=== PATIENT | male | born 1940 | race Caucasian/White ===

== ENCOUNTER 2017-09-17 08:00 | Outpatient (RCR) | payer MEDICARE, OTHER, SELFPAY | END 2017-09-17 08:01 | disposition home or self-care (01) | LOC: OT 08:00 | PROVIDERS: Family Provider Internal Medicine Adolescent Medicine; Visit Provider Orthopaedic Surgery Hand Surgery | DX: M65.341 Trigger finger, right ring finger (principal); M65.331 Trigger finger, right middle finger | CPT/HCPCS: 97033; 97035; 97140; 97163; 97165 ==

== ENCOUNTER 2017-10-03 11:45 | Emergency (ER) | payer MEDICARE, OTHER, SELFPAY ==
--- NOTE | 2017-10-03 | CT_ITS ---
CT angio chest HISTORY: Chest pain, pain in the shoulder blades ITS.REASON: RIGHT LEG PAIN AND PAIN IN BETWEEN SHOULDER ORDERING PHYSICIAN: Hubert Tellez MD PATIENT AGE: 77 years TECHNIQUE: Axial images obtained following the administration of 75 mL of Isovue 370 . Sagittal, and coronal reformatted images are also generated and reviewed. COMPARISON: None FINDINGS: No evidence of pulmonary embolus or aortic aneurysm. There are coronary artery calcifications there is mild pericardial thickening anteriorly. There is biapical scarring. Calcified granulomas present in the right lower lobe. No lobar consolidation or collapse. No acute infiltrate or effusion. There are degenerative changes in the thoracic spine. Upper abdominal images shows slight increase density within the central mesenteric fat nonspecific. IMPRESSION: 1. No acute finding. 2. No evidence of pulmonary embolus. 3. Coronary artery calcifications consistent with coronary artery disease
[2017-10-03 12:07] VITALS: BP 124/82; PULSE 99; RESP 20; TEMP 36.4; O2SAT 97; BMI 28.5
--- NOTE | 2017-10-03 12:15 | PC.NURSE ---
Triage nurse alerted me to patient's complaint of unexplained thoracic back pain. Discussed HPI with patient and significant other. Started night before last. Associated w/ nausea. Just didn't think much of it then . Persistent yesterday. Nausea intermittently. No known injury, trauma, activity that could have caused pain. Denies SOA, CP, cough. Concerned because previous had same symptoms x2 days and due to NM. PMHx IDDM and HLP but thinks otherwise healthy. Exercises 5 days a week. Saw Dr. Patel, dispersion mixer, approx one year ago because of my age was all . Stress test and unknown type of scan negative. Discussed possible differentials and [facility] guidelines. Pt has same concerns and that is why he is here today. Pt agreeable to transfer to ER. Report given in ER to both Dr. Tellez and Nidia Conley, [employer]. Bed 5 available. Pt taken over to bed 5 at approx 1215.
[2017-10-03 12:27] VITALS: BP 147/86; PULSE 76; RESP 16; TEMP 36.6; O2SAT 98; BMI 28.5
--- NOTE | 2017-10-03 12:47 | HMH.EDGENADL ---
ED Disposition Clinical Impression: Chronic anemia, Diabetes, Thoracic myofascial strain, Coronary artery calcification Disposition: Home, Self-Care Condition on Discharge: Fair Additional Instructions: 1- take a daily asa 81 mg. 2- cardiac CT scan as outpatient and calcium score. 3- take a copy to Dr Aguiar and discuss your CT results. Referrals: Alfredo Aguiar MD [Primary Care Provider] - - Critical Care Critical Care Time: No Attestation: On 10/03/17, the high probability of a clinically significant, sudden or life threatening deterioration of the following system(s) required my full and direct attention, intervention and personal management. The time I documented below is in addition to time spent performing reported procedures but includes the following listed in this critical care notation. Medical Decision Making Vital Signs: 10/03/17 12:07 10/03/17 12:27 Temperature 97.5 F L 97.9 F Temperature Source Temporal Artery Scan Oral Pulse Rate [Right Radial] 99 H 76 Respiratory Rate 20 16 Blood Pressure [Right Arm] 124/82 147/86 Blood Pressure Mean [Right Arm] 96 106 Blood Pressure Source [Right Arm] Automatic Cuff Automatic Cuff Blood Pressure Position [Right Arm] Sitting Sitting 02 Sat by Pulse Oximetry 97 98 Oxygen Delivery Method Room Air Room Air - Lab Data Lab results reviewed: Yes: I reviewed the patient's lab results. Lab Results 10/03/17 12:45: WBC 4.0 L, RBC 4.47 L, Hgb 11.7 L, Hct 37.7 L, MCV 84.3, MCH 26.1 L, MCHC 31.0 L, RDW 15.4, Plt Count 386, MPV 7.6, Neut % (Auto) 63.4, Lymph % (Auto) 27.1, Bland % (Auto) 5.2, Eos % (Auto) 3.9, Baso % (Auto) 0.4, Neut # (Auto) 2.5, Lymph # (Auto) 1.1, Bland # (Auto) 0.2, Eos # (Auto) 0.2, Baso # (Auto) 0.0 10/03/17 12:45: D-Dimer 231 10/03/17 12:45: B-Natriuretic Peptide 53 10/03/17 13:08: Sodium 137, Potassium 4.4, Chloride 101, Carbon Dioxide 28, Anion Gap 12.4, BUN 17, Creatinine 1.31 H, Estimated Creat Clear 63, Estimated GFR 53 L, Est GFR ( Amer) 64, Glucose 314 H, Calcium 8.4 L, Total Bilirubin 0.5, AST 9 L, ALT 23, Alkaline Phosphatase 63, Total Creatine Kinase 56, CK-MB (CK-2) < 0.5, CK-MB (CK-2) Rel Index 0.9, Troponin I < 0.02, Total Protein 6.7, Albumin 3.5, Globulin 3.2, Albumin/Globulin Ratio 1.1 Result diagrams: 10/03/17 12:45 10/03/17 13:08 Orders (Tests/Meds): ED MEDICATIONS Generic Name Dose Route Start Last Admin Trade Name Freq PRN Reason Stop Dose Admin Sodium Chloride 10 ml 10/03/17 14:49 10/03/17 14:51 Rad-Saline Flush 10ml Syringe IV 11/02/17 14:48 10 ml NEEDED PRN Administration Maintain IV Site Discontinued Medications Generic Name Dose Route Start Last Admin Trade Name Freq PRN Reason Stop Dose Admin Iopamidol 75 ml 10/03/17 14:49 10/03/17 14:51 [id number]; 75ml Vial IV 10/03/17 14:50 75 ml ONCE ONE Administration Sodium Chloride 50 ml 10/03/17 14:49 10/03/17 14:51 Rad-Ns 50ml Vial IV 10/03/17 14:50 50 ml ONCE ONE Administration - CT Data CT Scan: Chest Time Received: 15:[address] Reviewed: Yes: I have viewed the radiologist's interpretation Preliminary Findings: Abnormal Findings Narrative: IMPRESSION: 1. No acute finding. 2. No evidence of pulmonary embolus. 3. Coronary artery calcifications consistent with coronary artery disease - ECG Data Tracing #1 Normal sinus rhythm baseline artifact normal P-wave QRS and T waves. ECG initial impression date: 10/03/17 ECG initial impression time: 12:52 - Kelvin Inquiry Pt receiving controlled substance: No Kelvin was queried for this patient: No Medical Decision Making Narrative: I discussed the results with the patient and his and gave him a copy of the CT report to follow-up with a primary care physician for further healthcare screening, follow-up in a coronary artery calcification, advised for a cardiac CT and calcium score. General Adult HPI - General Chief c
[2017-10-03 12:49] LABS: Basophils % 0.4 % (0.1-2.0); Eosinophils # 0.2 K/mm3 (0.0-0.4); Eosinophils % 3.9 % (0.1-12.0); Hematocrit 37.7 % (42.0-52.0); Hemoglobin 11.7 g/dL (14.1-18.0); Lymphocytes # 1.1 K/mm3 (0.7-4.5); Lymphocytes % 27.1 K/mm3 (10-50); Mean Corpuscular Hemoglobin 26.1 pg (27.0-31.2); Mean Corpuscular Volume 84.3 fl (80-94); Mean Platelet Volume 7.6 fl (7.4-10.4); Monocytes # 0.2 K/mm3 (0.1-1.0); Monocytes % 5.2 % (1.7-9.3); Neutrophils # 2.5 K/mm3 (1.8-7.8); Neutrophils % 63.4 % (37.0-80.0); Platelet Count 386 K/mm3 (142-424); Red Blood Count 4.47 M/mm3 (4.60-6.20); Red Cell Distribution Width 15.4 % (11.5-17.5)
--- NOTE | 2017-10-03 12:51 | ED_ITS ---
ED Disposition Clinical Impression: Chronic anemia, Diabetes, Thoracic myofascial strain, Coronary artery calcification Disposition: Home, Self-Care Condition on Discharge: Fair Additional Instructions: 1- take a daily asa 81 mg. 2- cardiac CT scan as outpatient and calcium score. 3- take a copy to Dr Aguiar and discuss your CT results. Referrals: Alfredo Aguiar MD [Primary Care Provider] - - Critical Care Critical Care Time: No Attestation: On 10/03/17, the high probability of a clinically significant, sudden or life threatening deterioration of the following system(s) required my full and direct attention, intervention and personal management. The time I documented below is in addition to time spent performing reported procedures but includes the following listed in this critical care notation. Medical Decision Making Vital Signs: 10/03/17 12:07 10/03/17 12:27 Temperature 97.5 F L 97.9 F Temperature Source Temporal Artery Scan Oral Pulse Rate [Right Radial] 99 H 76 Respiratory Rate 20 16 Blood Pressure [Right Arm] 124/82 147/86 Blood Pressure Mean [Right Arm] 96 106 Blood Pressure Source [Right Arm] Automatic Cuff Automatic Cuff Blood Pressure Position [Right Arm] Sitting Sitting 02 Sat by Pulse Oximetry 97 98 Oxygen Delivery Method Room Air Room Air - Lab Data Lab results reviewed: Yes: I reviewed the patient's lab results. Lab Results 10/03/17 12:45: WBC 4.0 L, RBC 4.47 L, Hgb 11.7 L, Hct 37.7 L, MCV 84.3, MCH 26.1 L, MCHC 31.0 L, RDW 15.4, Plt Count 386, MPV 7.6, Neut % (Auto) 63.4, Lymph % (Auto) 27.1, [place] % (Auto) 5.2, Eos % (Auto) 3.9, Baso % (Auto) 0.4, Neut # (Auto) 2.5, Lymph # (Auto) 1.1, [place] # (Auto) 0.2, Eos # (Auto) 0.2, Baso # (Auto) 0.0 10/03/17 12:45: D-Dimer 231 10/03/17 12:45: B-Natriuretic Peptide 53 10/03/17 13:08: Sodium 137, Potassium 4.4, Chloride 101, Carbon Dioxide 28, Anion Gap 12.4, BUN 17, Creatinine 1.31 H, Estimated Creat Clear 63, Estimated GFR 53 L, Est GFR ( Amer) 64, Glucose 314 H, Calcium 8.4 L, Total Bilirubin 0.5, AST 9 L, ALT 23, Alkaline Phosphatase 63, Total Creatine Kinase 56, CK-MB (CK-2) < 0.5, CK-MB (CK-2) Rel Index 0.9, Troponin I < 0.02, Total Protein 6.7, Albumin 3.5, Globulin 3.2, Albumin/Globulin Ratio 1.1 Result diagrams: 10/03/17 12:45 10/03/17 13:08 Orders (Tests/Meds): ED MEDICATIONS Generic Name Dose Route Start Last Admin Trade Name Freq PRN Reason Stop Dose Admin Sodium Chloride 10 ml 10/03/17 14:49 10/03/17 14:51 Rad-Saline Flush 10ml Syringe IV 11/02/17 14:48 10 ml NEEDED PRN Administration Maintain IV Site Discontinued Medications Generic Name Dose Route Start Last Admin Trade Name Freq PRN Reason Stop Dose Admin Iopamidol 75 ml 10/03/17 14:49 10/03/17 14:51 [id number]; 75ml Vial IV 10/03/17 14:50 75 ml ONCE ONE Administration Sodium Chloride 50 ml 10/03/17 14:49 10/03/17 14:51 Rad-Ns 50ml Vial IV 10/03/17 14:50 50 ml ONCE ONE Administration - CT Data CT Scan: Chest Time Received: 15:[address] Reviewed: Yes: I have viewed the radiologist's interpretation Preliminary Findings: Abnormal Findings Narrative: IMPRESSION: 1. No acute finding. 2. No evidence of pulmonary embolus. 3. Coronary artery calcifications consistent with cor
[2017-10-03 13:18] LABS: D-Dimer 231 (0-400)
[2017-10-03 13:43] LABS: Alanine Aminotransferase 23 U/L (12-78); Albumin Level 3.5 gm/dL (3.4-5.0); Albumin/Globulin Ratio 1.1 (1.1-1.8); Alkaline Phosphatase 63 U/L (46-116); Anion Gap 12.4 mEq/L (5-15); Aspartate Amino Transferase 9 U/L (15-37); Bilirubin,Total 0.5 mg/dL (0.2-1.0); Blood Urea Nitrogen 17 mg/dL (7-18); Calcium 8.4 mg/dL (8.5-10.1); Carbon Dioxide 28 mmol/L (21.0-32.0); Chloride 101 mmol/L (98-107); Creatine Kinase 56 U/L (39-308); Creatinine Clearance Estimated 63 mL/min (0-300); Creatinine,Serum 1.31 mg/dL (0.70-1.30); Estimated Glomerular Filt Rate 53 ml/min (>60); GFR (African American) 64 ML/MIN (>60); Globulin 3.2 gm/dl (1.3-3.2); Glucose 314 mg/dL (74-106); Potassium 4.4 mmoL/L (3.5-5.1); Sodium 137 mmol/L (136-145); Total Protein,Serum 6.7 gm/dL (6.4-8.2); Troponin I < 0.02 ng/ml (0.00-0.06)
[2017-10-03 13:46] LABS: CKMB Relative Index 0.9 U/L (0-4.0); Creatine Kinase MB < 0.5 mg/ml (0.0-3.6)
[2017-10-03 15:12] VITALS: BP 138/70; PULSE 76; RESP 20; TEMP 36.1; O2SAT 100
== END 2017-10-03 15:16 | disposition home or self-care (01) ==
LOC: UTC 12:11 → ER 12:14 → UTC 12:14 → ER 12:23
PROVIDERS: Emergency Provider Emergency Medicine; Family Provider Internal Medicine Adolescent Medicine; PCP Internal Medicine Adolescent Medicine
DX: S29.019A Strain of muscle and tendon of unspecified wall of thorax, initial encounter (principal); Z79.84 Long term (current) use of oral hypoglycemic drugs; I25.10 Atherosclerotic heart disease of native coronary artery without angina pectoris; I10 Essential (primary) hypertension; D64.9 Anemia, unspecified; Z79.82 Long term (current) use of aspirin; Z79.899 Other long term (current) drug therapy; R06.02 Shortness of breath; E11.9 Type 2 diabetes mellitus without complications
CPT/HCPCS: 36415; 71275; 80053; 82550; 82553; 83880; 84484; 85025; 85378; 93005; 99284; 99291; Q9967

== ENCOUNTER → 2017-10-10 07:38 | Outpatient (CLI) | payer MEDICARE, OTHER, SELFPAY ==
[2017-10-10 08:07] LABS: Basophils % 0.7 % (0.1-2.0); Eosinophils # 0.2 K/mm3 (0.0-0.4); Eosinophils % 4.6 % (0.1-12.0); Hematocrit 38.2 % (42.0-52.0); Hemoglobin 11.9 g/dL (14.1-18.0); Lymphocytes # 0.9 K/mm3 (0.7-4.5); Lymphocytes % 21.8 K/mm3 (10-50); Mean Corpuscular HGB Conc 31.1 g/dL (31.8-35.4); Mean Corpuscular Volume 83.6 fl (80-94); Mean Platelet Volume 7.4 fl (7.4-10.4); Monocytes # 0.3 K/mm3 (0.1-1.0); Monocytes % 6.2 % (1.7-9.3); Neutrophils # 2.7 K/mm3 (1.8-7.8); Neutrophils % 66.7 % (37.0-80.0); Platelet Count 390 K/mm3 (142-424); Red Blood Count 4.57 M/mm3 (4.60-6.20); Red Cell Distribution Width 15.4 % (11.5-17.5); White Blood Count 4.1 K/mm3 (4.8-10.8)
[2017-10-10 09:17] LABS: Alanine Aminotransferase 26 U/L (12-78); Albumin/Globulin Ratio 1.3 (1.1-1.8); Alkaline Phosphatase 65 U/L (46-116); Anion Gap 11.6 mEq/L (5-15); Aspartate Amino Transferase 10 U/L (15-37); Bilirubin,Total 0.4 mg/dL (0.2-1.0); Blood Urea Nitrogen 18 mg/dL (7-18); Calcium 8.9 mg/dL (8.5-10.1); Carbon Dioxide 29 mmol/L (21.0-32.0); Chloride 103 mmol/L (98-107); Chol/HDL Ratio 3.8 (1-3.5); Cholesterol 156 mg/dL (140-200); Estimated Glomerular Filt Rate 53 ml/min (>60); GFR (African American) 64 ML/MIN (>60); Globulin 3.1 gm/dl (1.3-3.2); Glucose 189 mg/dL (74-106); HDL Cholesterol 41 mg/dL (27-67); LDL Cholesterol 96 mg/dL (0-130); Potassium 4.6 mmoL/L (3.5-5.1); Sodium 139 mmol/L (136-145); Total Protein,Serum 7.1 gm/dL (6.4-8.2); Triglycerides 96 mg/dL (30-200); VLDL Cholesterol 19 mg/dL (0-40)
== END ==
PROVIDERS: Visit Provider Internal Medicine Adolescent Medicine
DX: I25.10 Atherosclerotic heart disease of native coronary artery without angina pectoris (principal)
CPT/HCPCS: 36415; 80053; 80061; 85025

== ENCOUNTER → 2017-10-14 06:21 | Outpatient (CLI) | payer MEDICARE, OTHER, SELFPAY ==
--- NOTE | 2017-10-14 06:26 | NM_ITS ---
History and Indications: Diabetes, family history, shortness of breath and fatigue. Procedure: Patient exercised on Anderson protocol 7 and 30 seconds, resting heart rate was 64 beats per resting blood pressure 151/84, with exercise maximum heart rate achieved was 1 47 bpm which is equal to 104% of the maximum predicted heart rate and a blood pressure was 186/70. Test was started due to shortness of breath, also complained depression in the left upper back. Patient has good exercise capacity achieved 10.1mets of workload on treadmill, the blood pressure response to exercise was adequate. Electrocardiogram: Resting electrocardiogram showed sinus rhythm, with exercise there is [address] segment depression noted from the baseline EKG. The EKG portion of the exercise Myoview is markedly positive for ischemia. Cardiac stress and resting SPECT images: Cardiac stress and resting SPECT images were obtained using technetium 99 Myoview 10.5 mCi at rest and 31.6 mCi at stress, gated SPECT further analysis of segmental wall motion and calculation of the ejection fraction also done. Cardiac stress and rest SPECT images show uniform myocardial activity without any segmental perfusion abnormality, computer derived ejection fraction is over 65% with no obvious regional wall motion abnormality, right ventricle is moderately enlarged with normal contractility. Conclusion: 1. The EKG portion of the exercise Myoview is markedly positive for ischemia, patient has good exercise capacity achieved 10.1mets of workload on treadmill, the blood pressure response to exercise was adequate, there was no exercise-induced chest discomfort, test was started due to shortness of breath, patient also complained of pressure in left upper back. 2. No obvious scintigraphic evidence of reversible ischemia seen at this level of exercise, computer derived ejection fraction is over 65% with no obvious regional wall motion abnormality, right ventricle is moderately enlarged with normal contractility.
--- NOTE | 2017-10-14 07:13 | HMH.ITSHM ---
GLIPIZIDE METFORMIN LANTUS PRAVASTATIN LISINOPRIL ASA MULTIVITAMIN VITAMIN C TRINTELLIX VITAMIN D3
== END ==
PROVIDERS: Family Provider Internal Medicine Adolescent Medicine; PCP Internal Medicine Adolescent Medicine; Visit Provider Internal Medicine Adolescent Medicine
DX: I25.10 Atherosclerotic heart disease of native coronary artery without angina pectoris (principal)
CPT/HCPCS: 78452; 93017; A9502

== ENCOUNTER 2017-10-28 07:26 | Day surgery (SDC) | payer MEDICARE, OTHER, SELFPAY ==
[2017-10-28] VITALS (15 sets, daily range): BP systolic 99–167; BP diastolic 51–83; PULSE 65–79; RESP 16–18; TEMP 36.6; O2SAT 94–100; BMI 28.8
--- NOTE | 2017-10-28 | CA_ITS ---
PROCEDURE: 2-D M-mode and color Doppler study INDICATIONS FOR THE TEST: Chest pain COPD Heart Murmur Tobacco Smoking Palpitations+ Fatigue+ Syncope Edema Hypertension+Diabetes Mellitus+ Rheumatic Fever SOB+CAMPBELL Obesity Hyperlipidemia+ Family History HD Additional History PATIENT INFORMATION HEIGHT: 73 WEIGHT: 222 GENDER: Male B/P: 135/82 2-D/M-MODE INTERPRETATION: 2-D MEASUREMENTS OBSERVED VALUES IN CMS Right Ventricular Dimension (RVDd) 2.4 Interventricular Septum (Thickness)(IVsd) 1.0 Left Ventricular Internal Dimensions(LVIDd) 4.8 Left Ventricular Posterior Wall (Thickness)(LVPWd) 0.9 Aortic Root 2.8 Aortic Cusp Separation 2.0 Left Atrial Dimensions (LAD) 3.4 2D 1. Left atrium is qualitatively mildly enlarged, left ventricle is normal size, there is mild qualitative concentric left ventricular hypertrophy, visually estimated ejection fraction 55% with no obvious regional wall motion abnormality. 2. The right atrium and right ventricle are normal size and contractility. 3. The aortic valve is minimally thickened and fibrosed. 4. The mitral and tricuspid valve leaflets are minimally thickened. 5. The pulmonic valve is poorly visualized. 6. No significant pericardial effusion noted. DOPPLER INTERROGATION: Doppler interrogation of the aortic, mitral and tricuspid valvular presence of mild mitral and tricuspid regurgitation, calculated right ventricular systolic pressure is 34 mmHg, grade 1 diastolic dysfunction seen without tissue Doppler evidence of raised left atrial pressure. CONCLUSION: 1. Mildly enlarged left atrium, normal left ventricular size, mild concentric left ventricular hypertrophy, visually estimated ejection fraction 55% with no obvious regional wall motion abnormality, grade 1 diastolic dysfunction seen without tissue Doppler evidence of raised left atrial pressure. 2. Mild mitral and tricuspid regurgitation, calculated right ventricular systolic pressure is 34 mmHg 3. No significant pericardial effusion noted.
--- NOTE | 2017-10-28 | IR_ITS ---
CARDIAC CATHETERIZATION DATE OF CATHETERIZATION:10/28/2017 10:54 AM PROCEDURES: 1. Left heart catheterization 2. Left ventriculogram 3. Selective coronary angiogram INDICATION FOR TEST: 1. Abnormal stress test 2. Risk factors for coronary artery disease 3. Angina pectoris Informed consent was obtained prior to the procedure. COMPLICATIONS: None ESTIMATED BLOOD LOSS: Less than 10 ml. TECHNIQUE: One percent lidocaine used to anesthetize the right anterior aspect of the wrist. The right radial artery was accessed via the Seldinger technique. A 6 Japanese sheath was placed in the right radial artery. 2.5 mg of verapamil, 800 mcg of nitroglycerin and 5000 U Heparin were given through the arterial sheath. The trap catheter was also used to perform left heart catheterization and left ventriculography. At the end of the procedure the patient was transferred to the post-op holding area in stable condition for arterial sheath removal. ANGIOGRAPHIC RESULTS: 1. The left main artery normal 2. The left anterior descending artery has mild proximal 10% stenoses 3. The circumflex artery normal 4. The right coronary artery is dominant and has 10-20% mid vessel and distal stenoses 5. The [place] ventriculogram reveals normal 65% 6. The left ventricular end-diastolic pressure 10 to 15 mmHg IMPRESSION: 1. Mild nonflow limiting coronary artery disease 2. Normal ejection fraction 3. Normal left ventricular end-diastolic pressure PLAN: 1. Evaluation noncardiac symptoms 2. Risk factor modification
[2017-10-28 08:25] LABS: Basophils % 0.6 % (0.1-2.0); Eosinophils # 0.2 K/mm3 (0.0-0.4); Eosinophils % 4.2 % (0.1-12.0); Hematocrit 37.5 % (42.0-52.0); Hemoglobin 11.9 g/dL (14.1-18.0); Lymphocytes % 22.2 K/mm3 (10-50); Mean Corpuscular HGB Conc 31.8 g/dL (31.8-35.4); Mean Corpuscular Hemoglobin 26.2 pg (27.0-31.2); Mean Corpuscular Volume 82.5 fl (80-94); Mean Platelet Volume 7.1 fl (7.4-10.4); Monocytes # 0.3 K/mm3 (0.1-1.0); Monocytes % 6.2 % (1.7-9.3); Neutrophils # 3.1 K/mm3 (1.8-7.8); Neutrophils % 66.9 % (37.0-80.0); Platelet Count 384 K/mm3 (142-424); Red Blood Count 4.55 M/mm3 (4.60-6.20); Red Cell Distribution Width 14.9 % (11.5-17.5); White Blood Count 4.7 K/mm3 (4.8-10.8)
[2017-10-28 08:32] LABS: Anion Gap 9.2 mEq/L (5-15); Blood Urea Nitrogen 21 mg/dL (7-18); Carbon Dioxide 31 mmol/L (21.0-32.0); Chloride 100 mmol/L (98-107); Creatinine Clearance Estimated 66 mL/min (0-300); Creatinine,Serum 1.26 mg/dL (0.70-1.30); Estimated Glomerular Filt Rate 55 ml/min (>60); GFR (African American) 67 ML/MIN (>60); Glucose 216 mg/dL (74-106); Potassium 4.2 mmoL/L (3.5-5.1); Sodium 136 mmol/L (136-145)
== END 2017-10-28 14:26 | disposition home or self-care (01) ==
PROVIDERS: Family Provider Internal Medicine Adolescent Medicine; PCP Internal Medicine Adolescent Medicine; Visit Provider Internal Medicine
DX: R94.31 Abnormal electrocardiogram [ECG] [EKG] (principal); R06.02 Shortness of breath; R06.09 Other forms of dyspnea; E11.9 Type 2 diabetes mellitus without complications; Z79.4 Long term (current) use of insulin; I10 Essential (primary) hypertension; E78.2 Mixed hyperlipidemia; I25.10 Atherosclerotic heart disease of native coronary artery without angina pectoris
CPT/HCPCS: 80048; 85025; 93306; 93458; 99152; C1725; C1760; C1769; J1644; Q9967

== ENCOUNTER → 2017-12-01 09:34 | Outpatient (CLI) | payer MEDICARE, OTHER, SELFPAY ==
[2017-12-01 10:35] VITALS: PULSE 80; PULSE 86
== END ==
PROVIDERS: Family Provider Internal Medicine Adolescent Medicine; PCP Internal Medicine Adolescent Medicine; Visit Provider Internal Medicine Adolescent Medicine
DX: R06.09 Other forms of dyspnea (principal)
CPT/HCPCS: 94060; 94640; 94726; 94729

== ENCOUNTER → 2018-02-05 07:12 | Outpatient (CLI) | payer MEDICARE, OTHER, SELFPAY ==
[2018-02-05 10:25] LABS: Alanine Aminotransferase 24 U/L (12-78); Albumin Level 3.9 gm/dL (3.4-5.0); Albumin/Globulin Ratio 1.2 (1.1-1.8); Alkaline Phosphatase 69 U/L (46-116); Anion Gap 13.9 mEq/L (5-15); Aspartate Amino Transferase 14 U/L (15-37); Bilirubin,Total 0.3 mg/dL (0.2-1.0); Blood Urea Nitrogen 27 mg/dL (7-18); Carbon Dioxide 27 mmol/L (21.0-32.0); Chloride 104 mmol/L (98-107); Chol/HDL Ratio 3.8 (1-3.5); Cholesterol 150 mg/dL (140-200); Estimated Glomerular Filt Rate 53 ml/min (>60); GFR (African American) 64 ML/MIN (>60); Globulin 3.2 gm/dl (1.3-3.2); Glucose 179 mg/dL (74-106); HDL Cholesterol 40 mg/dL (27-67); LDL Cholesterol 94 mg/dL (0-130); Potassium 4.9 mmoL/L (3.5-5.1); Sodium 140 mmol/L (136-145); Total Protein,Serum 7.1 gm/dL (6.4-8.2); Triglycerides 79 mg/dL (30-200); VLDL Cholesterol 16 mg/dL (0-40)
== END ==
PROVIDERS: Visit Provider Internal Medicine Adolescent Medicine
DX: E11.9 Type 2 diabetes mellitus without complications (principal); I25.10 Atherosclerotic heart disease of native coronary artery without angina pectoris
CPT/HCPCS: 36415; 80053; 80061; 83036

== ENCOUNTER → 2018-04-19 14:16 | Outpatient (CLI) | payer MEDICARE, OTHER, SELFPAY ==
--- NOTE | 2018-04-19 | NVE_ITS ---
Venous Exam Indications: 729.5 Pain in limb. IMPRESSIONS 1. There is no evidence of significant Reflux. 2. No evidence of deep or superficial vein thrombosis involving the left lower extremity History: Left lower extremity pain. Edema of the left leg. Risk factors: Hypertension. Hyperlipidemia. Diabetes. 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 Medications: Aspirin, 81 mg. Left lower extremity venous duplex evaluation. Doppler flow study including spectral analysis, color and liao scale imaging. Location: Vascular laboratory. Patient status: Outpatient. Tables: Venous flow and imaging: + +-------+ + Location Overall Flow properties + +-------+ + Left common femoral Patent Normal phasicity; spontaneous; normal augmentation; compressible + +-------+ + Left saphenofemoral junction Patent Compressible + +-------+ + Left profunda femoral Patent Compressible + +-------+ + Left femoral Patent Normal phasicity; spontaneous; normal augmentation; compressible + +-------+ + Left greater saphenous Patent Normal phasicity; spontaneous; normal augmentation; compressible + +-------+ + Left popliteal Patent Normal phasicity; spontaneous; normal augmentation; compressible + +-------+ + Left posterior tibial Patent Compressible + +-------+ + Left peroneal Patent Compressible + +-------+ + Left gastrocnemius Patent Compressible + +-------+ + Left soleal Patent Compressible + +-------+ + (Report amended ) Electronically signed by: Brijesh Kilgore [id number]
== END ==
PROVIDERS: PCP Internal Medicine Adolescent Medicine; Visit Provider Physician Assistant
DX: R60.0 Localized edema (principal)
CPT/HCPCS: 93971

== ENCOUNTER → 2018-05-04 07:00 | Outpatient (CLI) | payer MEDICARE, OTHER, SELFPAY ==
[2018-05-04 07:48] LABS: Basophils % 0.4 % (0.1-2.0); Eosinophils # 0.2 K/mm3 (0.0-0.4); Eosinophils % 4.1 % (0.1-12.0); Hematocrit 38.3 % (42.0-52.0); Hemoglobin 11.7 g/dL (14.1-18.0); Lymphocytes # 0.9 K/mm3 (0.7-4.5); Lymphocytes % 16.7 K/mm3 (10-50); Mean Corpuscular HGB Conc 30.5 g/dL (31.8-35.4); Mean Corpuscular Hemoglobin 25.5 pg (27.0-31.2); Mean Corpuscular Volume 83.4 fl (80-94); Mean Platelet Volume 7.1 fl (7.4-10.4); Monocytes # 0.3 K/mm3 (0.1-1.0); Monocytes % 5.7 % (1.7-9.3); Neutrophils % 73.1 % (37.0-80.0); Platelet Count 683 K/mm3 (142-424); Red Blood Count 4.59 M/mm3 (4.60-6.20); Red Cell Distribution Width 17.7 % (11.5-17.5); White Blood Count 5.5 K/mm3 (4.8-10.8)
[2018-05-04 08:34] LABS: Hemoglobin A1C 7.7 % (0.0-7.0)
[2018-05-04 09:19] LABS: Alanine Aminotransferase 25 U/L (12-78); Albumin Level 3.9 gm/dL (3.4-5.0); Albumin/Globulin Ratio 1.2 (1.1-1.8); Alkaline Phosphatase 90 U/L (46-116); Anion Gap 13.7 mEq/L (5-15); Aspartate Amino Transferase 17 U/L (15-37); Bilirubin,Total 0.6 mg/dL (0.2-1.0); Blood Urea Nitrogen 21 mg/dL (7-18); Carbon Dioxide 29 mmol/L (21.0-32.0); Chloride 103 mmol/L (98-107); Creatinine,Serum 1.22 mg/dL (0.70-1.30); Estimated Glomerular Filt Rate 57 ml/min (>60); GFR (African American) 69 ML/MIN (>60); Globulin 3.2 gm/dl (1.3-3.2); Glucose 118 mg/dL (74-106); Potassium 4.7 mmoL/L (3.5-5.1); Sodium 141 mmol/L (136-145); Total Protein,Serum 7.1 gm/dL (6.4-8.2)
[2018-05-07 17:27] LABS: Testosterone, Total, LC/MS 433.2 ng/dL (264.0-916.0); Testosterone,Free 4.3 pg/mL (6.6-18.1)
== END ==
PROVIDERS: PCP Internal Medicine Adolescent Medicine; Visit Provider Internal Medicine Adolescent Medicine
DX: R53.83 Other fatigue (principal); R53.81 Other malaise; E11.9 Type 2 diabetes mellitus without complications
CPT/HCPCS: 36415; 80053; 82533; 83036; 84402; 84403; 85025

== ENCOUNTER → 2018-06-07 13:41 | Outpatient (CLI) | payer MEDICARE, OTHER, SELFPAY ==
[2018-06-07 15:08] LABS: Hematocrit 38.5 % (42.0-52.0); Hemoglobin 11.7 g/dL (14.1-18.0)
== END ==
PROVIDERS: Visit Provider Surgery
DX: D64.9 Anemia, unspecified (principal)
CPT/HCPCS: 36415; 85014; 85018

== ENCOUNTER → 2018-07-20 08:32 | Outpatient (CLI) | payer MEDICARE, OTHER, SELFPAY ==
--- NOTE | 2018-07-20 08:34 | FL_ITS ---
MN upper GI small bowel Ordering Physician: Yonathan Araujo MD Patient Age: 77 years: Male HISTORY: ITS.REASON: anemia TECHNIQUE: Double contrast UGI with subsequent small bowel follow-through performed by Dr. Hernandez. Fluoroscopy time 4 minutes 02 seconds. HISTORY of prostate cancer 10 years ago. Also appendectomy and gallbladder surgery. COMPARISON :None FINDINGS. UGI Cervical esophagus Patient did demonstrate penetration into the laryngeal vestibule including mild aspiration. Minimal barium is seen at or below the level of the cords. Minimal intermittent penetration which may be accentuated swallowing with with head in extension. Nonetheless this should keep in mind and consider a follow-up speech pathology evaluation particularly if any dysphagia symptoms. There are some anterior marginal osteophytes at C5/6 with these do not impact the C-spine cricopharyngeus muscle. Thoracic esophagus. There is a small sliding hiatal hernia. Minor GE reflux noted during the course of exam. Otherwise the Stomach, Pylorus and Duodenal Bulb appear satisfactory. There is some initial slight delay in gastric emptying but once began the duodenal bulb appear distensible and satisfactory as does the pylorus, antrum and duodenal loop.. No evidence of ulceration or scarring SMALL BOWEL follow through------] Small bowel is normal in caliber. Normal transit. Normal mucosal pattern of jejunum and ileum. The terminal ileum was slightly difficult to isolate but appears within normal limits. Spot views of the remainder small bowel were performed during the exam to additionally survey as well.. IMPRESSION: 1.. Small sliding hiatal hernia noted. Trace GE reflux 2. Incidental Note episode of penetration & with evidence of minimal aspiration . This may be incidental transient episode, but Consider speech pathology follow-up, particularly if there should be any symptoms of dysphagia 3. Stomach pylorus and the nipple overall satisfactory. 4.. Small bowel. Normal caliber normal appearance. No abnormalities evident nor identified.
== END ==
PROVIDERS: PCP Internal Medicine Adolescent Medicine; Visit Provider Surgery
DX: D64.9 Anemia, unspecified (principal)
CPT/HCPCS: 74245

== ENCOUNTER → 2018-07-21 11:28 | Outpatient (CLI) | payer MEDICARE, OTHER, SELFPAY ==
[2018-07-21 12:19] LABS: Basophils % 0.4 % (0.1-2.0); Eosinophils # 0.2 K/mm3 (0.0-0.4); Eosinophils % 3.7 % (0.1-12.0); Hematocrit 38.6 % (42.0-52.0); Lymphocytes % 20.8 % (10-50); Mean Corpuscular Hemoglobin 25.9 pg (27.0-31.2); Mean Corpuscular Volume 83.5 fl (80-94); Monocytes # 0.2 K/mm3 (0.1-1.0); Monocytes % 4.7 % (1.7-9.3); Neutrophils # 3.4 K/mm3 (1.8-7.8); Neutrophils % 70.5 % (37.0-80.0); Platelet Count 414 K/mm3 (142-424); Red Blood Count 4.62 M/mm3 (4.60-6.20); White Blood Count 4.8 K/mm3 (4.8-10.8)
[2018-07-23 16:13] LABS: Vitamin B12 312 pg/mL (232-1245); Vitamin D 25 Hydroxy 48.9 ng/mL (30.0-100.0)
[2018-07-24 13:59] LABS: Antiparietal Cell Antibody 19.4 Units (0.0-20.0)
[2018-07-29 15:23] LABS: Methylmalonic Acid 224 nmol/L (0-378)
== END ==
PROVIDERS: Visit Provider Internal Medicine Adolescent Medicine
DX: D64.9 Anemia, unspecified (principal)
CPT/HCPCS: 36415; 82131; 82607; 82652; 83516; 85025

== ENCOUNTER → 2018-08-04 12:08 | Outpatient (CLI) | payer MEDICARE, OTHER, SELFPAY ==
--- NOTE | 2018-08-04 12:49 | FL_ITS ---
FL barium swallow modified: 08/04/2018 12:49 PM CLINICAL HISTORY: Dysphasia ORDERING PHYSICIAN: Yonathan Araujo MD PATIENT AGE: 77 years Comparison: None TECHNIQUE: Patient administered varying consistencies of barium contrast, while viewed in lateral position under real-time fluoroscopy with cine recording. FLUOROSCOPY TIME: 1 minute 54 seconds The study was performed in conjunction with speech pathologist. Please see that report & recommendations. FINDINGS: Patient was given varying consistencies of barium. There was flash penetration with thin liquids with a straw with large volume. No other significant anomalies are evident. IMPRESSION: Flash penetration with thin liquids otherwise negative modified barium swallow Please see speech pathologist report and recommendations.
--- NOTE | 2018-08-04 14:28 | HMH.SLMBS2 ---
Speech & Language Evaluation Speech/Language Mod Barium Swallow Start: 08/04/18 14:01 Freq: once Status: Complete Protocol: Document 08/04/18 14:01 SUE (Rec: 08/04/18 14:27 SUE [id number]) MBS Recommendations Diet Dietary Recommendations Regular Thin Liquids Treatment/Strategies Strategy/Precaution Recommend Sitting Upright (90 deg) Chin Tuck No Straw Small Bites and Sips Mod Barium Swallow Impressions Summary and Impressions Oral Phase Impression No Impairment (WFL) Oral Phase Summary Mr. Vázquez was given the following consistencies: thins via straw and open cup, pudding, mechanical soft, regular, mixed, and pill with thin wash. No oral phase dysphagia noted. Pharyngeal Phase Impression Minimal Impairment Pharyngeal Phase Summary Mr. Vázquez did exhibit flash penetration with thin liquids with a straw and when given large volume of thins to swallow pill. At this time, speech therapy and diet modifications are not needed. Compensatory strategies were implimented: chin tuck with pills, reduce the amount of medications taken at once, straws are not recommended at this time. Speech/Language MBS Assessment/Goals/Plan Assessment Date of Evaluation: 08/04/18 Evaluation Type Initial Certification Assessment/Problems Dysphagia Does Patient Qualify for Service No Qualify/Failure Comment Mr. Vázquez was educated on the compensatory strategies and will impliment at home. He will contact speech therapist if he continues to have difficulty. Recommendations PHYSICIAN CERTIFICATION: The specified therapy services are required, authorized, and reviewed every 30 days. Diet Recommendations Normal Liquid Type Recommendations Normal/Thin Dysphagia Swallow Precautions/Strategies Chin Tuck No Straw Small Bites and Sips Plan Pt/Guardian verbally ack understanding Yes of dx/prognosis/goals G -code Required Yes G-CODES ST Current Status [id number]
[2018-08-04 14:47] LABS: Ferritin 23 ng/mL (8-388)
== END ==
PROVIDERS: Internal Medicine Adolescent Medicine; Visit Provider Surgery
DX: T17.908A Unspecified foreign body in respiratory tract, part unspecified causing other injury, initial encounter (principal); D64.9 Anemia, unspecified
CPT/HCPCS: 36415; 70371; 82728; 92611

== ENCOUNTER 2018-08-12 09:00 | Outpatient (RCR) | payer MEDICARE, OTHER, SELFPAY | END 2018-08-12 09:05 | disposition home or self-care (01) | LOC: PT 09:00 | PROVIDERS: Family Provider Internal Medicine Adolescent Medicine; PCP Internal Medicine Adolescent Medicine; Visit Provider Orthopaedic Surgery | DX: Z96.652 Presence of left artificial knee joint (principal) | CPT/HCPCS: 97010; 97014; 97016; 97110; 97140; 97163; 97164; G0283 ==

== ENCOUNTER → 2018-08-17 15:17 | Outpatient (CLI) | payer MEDICARE, OTHER, SELFPAY ==
[2018-08-17 15:40] LABS: Hematocrit 36.5 % (42.0-52.0); Hemoglobin 11.3 g/dL (14.1-18.0)
== END ==
PROVIDERS: Visit Provider Surgery
DX: D64.9 Anemia, unspecified (principal)
CPT/HCPCS: 36415; 85014; 85018

== ENCOUNTER → 2018-09-21 09:37 | Outpatient (CLI) | payer MEDICARE, OTHER, SELFPAY ==
[2018-09-21 09:58] LABS: Hematocrit 38.2 % (42.0-52.0); Hemoglobin 11.7 g/dL (14.1-18.0)
== END ==
PROVIDERS: Visit Provider Surgery
DX: D64.9 Anemia, unspecified (principal)
CPT/HCPCS: 36415; 85014; 85018

== ENCOUNTER → 2018-09-23 10:20 | Outpatient (CLI) | payer MEDICARE, OTHER, SELFPAY ==
[2018-09-23 11:25] LABS: Basophils % 0.4 % (0.1-2.0); Eosinophils # 0.2 K/mm3 (0.0-0.4); Eosinophils % 4.8 % (0.1-12.0); Hematocrit 38.9 % (42.0-52.0); Hemoglobin 11.7 g/dL (14.1-18.0); Lymphocytes # 0.6 K/mm3 (0.7-4.5); Mean Corpuscular HGB Conc 30.2 g/dL (31.8-35.4); Mean Corpuscular Hemoglobin 25.6 pg (27.0-31.2); Mean Corpuscular Volume 84.6 fl (80-94); Mean Platelet Volume 7.5 fl (7.4-10.4); Monocytes # 0.3 K/mm3 (0.1-1.0); Monocytes % 5.3 % (1.7-9.3); Neutrophils # 3.6 K/mm3 (1.8-7.8); Neutrophils % 76.6 % (37.0-80.0); Platelet Count 342 K/mm3 (142-424); Red Blood Count 4.59 M/mm3 (4.60-6.20); Red Cell Distribution Width 15.9 % (11.5-17.5); Reticulocyte % (Auto) 2.3 % (0.9-3.2); White Blood Count 4.7 K/mm3 (4.8-10.8)
[2018-09-23 13:27] LABS: Alanine Aminotransferase 24 U/L (12-78); Albumin Level 3.6 gm/dL (3.4-5.0); Albumin/Globulin Ratio 1.2 (1.1-1.8); Alkaline Phosphatase 75 U/L (46-116); Anion Gap 15.7 mEq/L (5-15); Aspartate Amino Transferase 8 U/L (15-37); Bilirubin,Total 0.4 mg/dL (0.2-1.0); Blood Urea Nitrogen 20 mg/dL (7-18); Carbon Dioxide 25 mmol/L (21.0-32.0); Chloride 101 mmol/L (98-107); Creatinine,Serum 1.49 mg/dL (0.70-1.30); Estimated Glomerular Filt Rate 45 ml/min (>60); Ferritin 21 ng/mL (8-388); GFR (African American) 55 ML/MIN (>60); Globulin 3.1 gm/dl (1.3-3.2); Glucose 322 mg/dL (74-106); Potassium 4.7 mmoL/L (3.5-5.1); Sodium 137 mmol/L (136-145); Thyroid Stimulating Hormone 1.07 uIU/ml (0.358-3.740); Total Protein,Serum 6.7 gm/dL (6.4-8.2)
[2018-09-24 08:25] LABS: Iron 33 ug/dL (38-169); Iron Saturation 9 % (15-55); UIBC 317 ug/dL (111-343)
[2018-09-24 10:56] LABS: Haptoglobin 219 mg/dL (34-200)
[2018-09-24 15:24] LABS: Albumin 3.9 g/dL (2.9-4.4); Alpha-1-Globulin 0.2 g/dL (0.0-0.4); Alpha-2-Globulin 0.8 g/dL (0.4-1.0); Gamma Globulin 0.8 g/dL (0.4-1.8); Protein, Total 6.7 g/dL (6.0-8.5)
[2018-09-24 16:36] LABS: Free Kappa Lt Chains 33.4 mg/L (3.3-19.4); Free Lambda Lt Chains 22.6 mg/L (5.7-26.3)
== END ==
PROVIDERS: Visit Provider Internal Medicine Medical Oncology
DX: R79.0 Abnormal level of blood mineral (principal); Z79.899 Other long term (current) drug therapy
CPT/HCPCS: 36415; 80053; 82728; 83010; 83540; 83550; 83883; 84155; 84165; 84443; 85025; 85044

== ENCOUNTER 2018-10-05 09:25 | Outpatient (CLI) | payer MEDICARE, OTHER, SELFPAY ==
[2018-10-05 10:03] VITALS: BMI 26.7
[2018-10-05 10:28] LABS: Phosphorous 4.1 mg/dL (2.4-4.9)
[2018-10-05 10:50] VITALS: BP 110/66; PULSE 72; RESP 18
[2018-10-05 11:15] VITALS: BP 133/69; PULSE 62; RESP 18
[2018-10-05 11:30] VITALS: BP 133/72; PULSE 72; RESP 18
== END 2018-10-05 11:30 | disposition home or self-care (01) ==
LOC: INF 09:34
PROVIDERS: Visit Provider Internal Medicine Medical Oncology
DX: D50.9 Iron deficiency anemia, unspecified (principal); T45.4X5A Adverse effect of iron and its compounds, initial encounter
CPT/HCPCS: 84100; 96365; J1439

== ENCOUNTER 2018-10-12 09:10 | Outpatient (CLI) | payer MEDICARE, OTHER, SELFPAY ==
[2018-10-12 09:12] VITALS: BMI 26.7
[2018-10-12 09:54] VITALS: BP 118/64; PULSE 73; RESP 18; TEMP 36.6; O2SAT 99
[2018-10-12 10:35] VITALS: BP 115/66; PULSE 76; RESP 18; O2SAT 98
== END 2018-10-12 10:40 | disposition home or self-care (01) ==
LOC: INF 09:10
PROVIDERS: Visit Provider Internal Medicine Medical Oncology
DX: D50.9 Iron deficiency anemia, unspecified (principal)
CPT/HCPCS: 84100; 96365; J1439

== ENCOUNTER → 2018-10-14 08:58 | Outpatient (CLI) | payer MEDICARE, OTHER, SELFPAY ==
--- NOTE | 2018-10-14 09:01 | MR_ITS ---
MR head/brain wo/w con HISTORY: Blurred vision with headache, dizziness, TIA s ITS.REASON: BILATERAL BLURRY VISION ORDERING PHYSICIAN: Alfredo Aguiar MD PATIENT AGE: 78 years Comparison: 10/06/2018 TECHNIQUE: Standard multiplanar multiecho sequences are performed without and with 17 mL ProHance IV. FINDINGS: No evidence of acute infarction. No midline shift, mass effect, intracranial hemorrhage, or hydrocephalus is evident. No restricted diffusion. No enhancing lesions. The cerebellopontine angles, cerebellum, and brainstem are unremarkable. Involutional changes of age are present with generalized brain volume loss along with moderate periventricular T2 white matter signal intensity consistent with ischemic gliotic change from microvascular disease. There is mild ventriculomegaly however, this may be result of volume loss from the atrophy. The pituitary, optic chiasm, corpus callosum, and craniocervical junction are unremarkable. IMPRESSION: 1. No acute intracranial findings. 2. Atrophy with chronic ischemic gliotic change.
== END ==
PROVIDERS: PCP Internal Medicine Adolescent Medicine; Visit Provider Internal Medicine Adolescent Medicine
DX: H53.8 Other visual disturbances (principal)
CPT/HCPCS: 70553; A9576

== ENCOUNTER → 2018-10-22 09:23 | Outpatient (CLI) | payer MEDICARE, OTHER, SELFPAY ==
[2018-10-22 10:39] LABS: Basophils % 0.4 % (0.1-2.0); Eosinophils # 0.2 K/mm3 (0.0-0.4); Hematocrit 40.2 % (42.0-52.0); Hemoglobin 12.8 g/dL (14.1-18.0); Lymphocytes # 0.5 K/mm3 (0.7-4.5); Lymphocytes % 12.6 % (10-50); Mean Corpuscular HGB Conc 31.8 g/dL (31.8-35.4); Mean Corpuscular Hemoglobin 27.7 pg (27.0-31.2); Mean Corpuscular Volume 87.2 fl (80-94); Mean Platelet Volume 6.8 fl (7.4-10.4); Monocytes # 0.2 K/mm3 (0.1-1.0); Monocytes % 5.4 % (1.7-9.3); Neutrophils % 77.6 % (37.0-80.0); Platelet Count 311 K/mm3 (142-424); Red Blood Count 4.61 M/mm3 (4.60-6.20); Red Cell Distribution Width 18.8 % (11.5-17.5); White Blood Count 3.9 K/mm3 (4.8-10.8)
[2018-10-22 10:52] LABS: Alanine Aminotransferase 30 U/L (12-78); Albumin Level 3.8 gm/dL (3.4-5.0); Albumin/Globulin Ratio 1.2 (1.1-1.8); Alkaline Phosphatase 83 U/L (46-116); Anion Gap 13.9 mEq/L (5-15); Aspartate Amino Transferase 17 U/L (15-37); Bilirubin,Total 0.4 mg/dL (0.2-1.0); Blood Urea Nitrogen 21 mg/dL (7-18); Calcium 8.9 mg/dL (8.5-10.1); Carbon Dioxide 27 mmol/L (21.0-32.0); Chloride 102 mmol/L (98-107); Estimated Glomerular Filt Rate 53 ml/min (>60); Ferritin 941 ng/mL (8-388); GFR (African American) 64 ML/MIN (>60); Globulin 3.2 gm/dl (1.3-3.2); Glucose 233 mg/dL (74-106); Potassium 4.9 mmoL/L (3.5-5.1); Sodium 138 mmol/L (136-145)
[2018-10-23 07:37] LABS: Iron 102 ug/dL (38-169); UIBC 155 ug/dL (111-343)
[2018-10-25 08:24] LABS: Iron Saturation 40 % (15-55)
== END ==
PROVIDERS: Visit Provider Internal Medicine Medical Oncology
DX: D50.9 Iron deficiency anemia, unspecified (principal)
CPT/HCPCS: 36415; 80053; 82728; 83540; 83550; 85025

== ENCOUNTER → 2018-10-25 08:21 | Outpatient (CLI) | payer MEDICARE, OTHER, SELFPAY ==
--- NOTE | 2018-10-25 08:25 | CA_ITS ---
PROCEDURE: 2-D M-mode and color Doppler study INDICATIONS FOR THE TEST: Chest pain COPD Heart Murmur Tobacco Smoking Palpitations+ Fatigue+ Syncope Edema Hypertension Diabetes Mellitus Rheumatic Fever SOB+CAMPBELL Obesity Hyperlipidemia+ Family History HD Additional History RBBB,TIA,SVT,SINUS JAMIL,VISUAL DISTURBANCE BUBBLE STUDY PATIENT INFORMATION HEIGHT: 73 WEIGHT:190 GENDER: Male B/P:121/75 2-D/M-MODE INTERPRETATION: 2-D MEASUREMENTS OBSERVED VALUES IN CMS Right Ventricular Dimension (RVDd) 2.4 Interventricular Septum (Thickness)(IVsd) 1.0 Left Ventricular Internal Dimensions(LVIDd) 4.9 Left Ventricular Posterior Wall (Thickness)(LVPWd) 0.8 Aortic Root 2.6 Aortic Cusp Separation 2.2 Left Atrial Dimensions (LAD) 3.5 2D 1. Left atrium is mildly enlarged, left ventricle is normal size, mild concentric left ventricular hypertrophy, visually estimated ejection fraction of 55% with no regional wall motion abnormality. 2. The right atrium and right ventricle are normal size and contractility. 3. The aortic valve is thickened and calcified leaflet continue to display mobility. 4. The mitral and tricuspid valve leaflets are minimally thickened 5. The pulmonic valve is poorly present. 6. No significant pericardial effusion noted. DOPPLER INTERROGATION: Doppler interrogation of the aortic, mitral and tricuspid valvular presence of mild mitral and tricuspid regurgitation, tricuspid regurgitation jet velocity is inadequate for calculation of the right ventricular systolic pressure, grade 1 diastolic dysfunction seen with tissue Doppler evidence of raised left atrial pressure, inferior vena cava is normal size with normal inspiratory collapse. Agitated saline contrast study fails to identify intracardiac shunt. CONCLUSION: 1. Mildly enlarged left atrium, normal left ventricular size, mild concentric left ventricular hypertrophy, visually estimated ejection fraction of 55% with no regional wall motion abnormality, grade 1 diastolic dysfunction seen with tissue Doppler evidence of raised left atrial pressure. 2. Thickened and calcified aortic valve without Doppler evidence of aortic stenosis aortic insufficiency. 3. Mild mitral and tricuspid regurgitation, tricuspid regurgitation jet velocity is inadequate for calculation of the right ventricular systolic pressure, inferior vena cava is normal size with normal inspiratory collapse. 4. Agitated syncope study fails to identify intracardiac shunt. 5. No significant pericardial effusion noted.
== END ==
PROVIDERS: PCP Internal Medicine Adolescent Medicine; Visit Provider Internal Medicine Adolescent Medicine
DX: I47.1 Supraventricular tachycardia (principal)
CPT/HCPCS: 93306

== ENCOUNTER → 2018-11-25 11:16 | Outpatient (CLI) | payer MEDICARE, OTHER, SELFPAY ==
[2018-11-25 11:54] LABS: Alanine Aminotransferase 33 U/L (12-78); Albumin Level 3.6 gm/dL (3.4-5.0); Albumin/Globulin Ratio 0.9 (1.1-1.8); Alkaline Phosphatase 86 U/L (46-116); Anion Gap 14.3 mEq/L (5-15); Aspartate Amino Transferase 11 U/L (15-37); Bilirubin,Total 0.8 mg/dL (0.2-1.0); Blood Urea Nitrogen 18 mg/dL (7-18); Calcium 9.4 mg/dL (8.5-10.1); Carbon Dioxide 28 mmol/L (21.0-32.0); Chloride 100 mmol/L (98-107); Creatinine,Serum 1.56 mg/dL (0.70-1.30); Estimated Glomerular Filt Rate 43 ml/min (>60); Ferritin 439 ng/mL (8-388); GFR (African American) 52 ML/MIN (>60); Glucose 249 mg/dL (74-106); Potassium 4.3 mmoL/L (3.5-5.1); Sodium 138 mmol/L (136-145); Total Protein,Serum 7.6 gm/dL (6.4-8.2)
[2018-11-25 12:05] LABS: Basophils % 0.2 % (0.1-2.0); Eosinophils # 0.2 K/mm3 (0.0-0.4); Eosinophils % 2.5 % (0.1-12.0); Hematocrit 43.7 % (42.0-52.0); Lymphocytes # 0.6 K/mm3 (0.7-4.5); Lymphocytes % 9.6 % (10-50); Mean Corpuscular Hemoglobin 28.6 pg (27.0-31.2); Mean Corpuscular Volume 89.6 fl (80-94); Monocytes # 0.4 K/mm3 (0.1-1.0); Monocytes % 6.1 % (1.7-9.3); Neutrophils % 81.6 % (37.0-80.0); Platelet Count 273 K/mm3 (142-424); Red Blood Count 4.87 M/mm3 (4.60-6.20); Red Cell Distribution Width 17.7 % (11.5-17.5); White Blood Count 6.1 K/mm3 (4.8-10.8)
[2018-11-26 08:20] LABS: Iron 20 ug/dL (38-169); UIBC 198 ug/dL (111-343)
[2018-11-27 06:42] LABS: Iron Saturation 9 % (15-55)
== END ==
PROVIDERS: Visit Provider Internal Medicine Medical Oncology
DX: D50.9 Iron deficiency anemia, unspecified (principal)
CPT/HCPCS: 36415; 80053; 82728; 83540; 83550; 85025

== ENCOUNTER → 2019-02-10 07:03 | Outpatient (CLI) | payer MEDICARE, OTHER, SELFPAY ==
[2019-02-10 07:44] LABS: Basophils % 0.5 % (0.1-2.0); Eosinophils # 0.3 K/mm3 (0.0-0.4); Eosinophils % 3.8 % (0.1-12.0); Hematocrit 40.2 % (42.0-52.0); Hemoglobin 11.7 g/dL (14.1-18.0); Lymphocytes # 0.8 K/mm3 (0.7-4.5); Lymphocytes % 12.4 % (10-50); Mean Corpuscular HGB Conc 29.1 g/dL (31.8-35.4); Mean Corpuscular Hemoglobin 26.7 pg (27.0-31.2); Mean Corpuscular Volume 91.6 fl (80-94); Mean Platelet Volume 7.5 fl (7.4-10.4); Monocytes # 0.3 K/mm3 (0.1-1.0); Monocytes % 4.8 % (1.7-9.3); Neutrophils # 5.3 K/mm3 (1.8-7.8); Neutrophils % 78.5 % (37.0-80.0); Platelet Count 683 K/mm3 (142-424); Red Blood Count 4.39 M/mm3 (4.60-6.20); Red Cell Distribution Width 14.8 % (11.5-17.5); White Blood Count 6.8 K/mm3 (4.8-10.8)
[2019-02-10 08:49] LABS: Ferritin 455 ng/mL (8-388)
[2019-02-11 09:20] LABS: Iron 26 ug/dL (38-169); UIBC 177 ug/dL (111-343)
[2019-02-11 17:15] LABS: Iron Saturation 13 % (15-55)
== END ==
PROVIDERS: Visit Provider Internal Medicine Medical Oncology
DX: D50.9 Iron deficiency anemia, unspecified (principal)
CPT/HCPCS: 36415; 82728; 83540; 83550; 85025

== ENCOUNTER → 2019-02-24 10:17 | Outpatient (CLI) | payer MEDICARE, OTHER, SELFPAY ==
[2019-02-24 10:58] LABS: Basophils % 0.4 % (0.1-2.0); Eosinophils # 0.2 K/mm3 (0.0-0.4); Eosinophils % 2.6 % (0.1-12.0); Hematocrit 36.7 % (42.0-52.0); Hemoglobin 11.1 g/dL (14.1-18.0); Lymphocytes # 0.8 K/mm3 (0.7-4.5); Lymphocytes % 9.9 % (10-50); Mean Corpuscular HGB Conc 30.2 g/dL (31.8-35.4); Mean Platelet Volume 7.1 fl (7.4-10.4); Monocytes # 0.5 K/mm3 (0.1-1.0); Monocytes % 5.7 % (1.7-9.3); Neutrophils # 6.3 K/mm3 (1.8-7.8); Neutrophils % 81.3 % (37.0-80.0); Red Blood Count 4.27 M/mm3 (4.60-6.20); Red Cell Distribution Width 14.4 % (11.5-17.5); White Blood Count 7.8 K/mm3 (4.8-10.8)
[2019-02-24 11:25] LABS: Platelet Count 702 K/mm3 (142-424)
[2019-02-24 12:19] LABS: Ferritin 688 ng/mL (8-388)
[2019-02-25 06:23] LABS: Iron 20 ug/dL (38-169); UIBC 200 ug/dL (111-343)
[2019-02-25 15:05] LABS: Iron Saturation 9 % (15-55)
== END ==
PROVIDERS: Visit Provider Internal Medicine Hematology & Oncology
DX: D64.9 Anemia, unspecified (principal)
CPT/HCPCS: 36415; 82728; 83540; 83550; 85025

== ENCOUNTER 2019-03-08 09:52 | Outpatient (CLI) | payer MEDICARE, OTHER, SELFPAY ==
[2019-03-08 10:10] VITALS: BP 113/62; PULSE 79; RESP 18; O2SAT 97
[2019-03-08 10:50] VITALS: BP 124/61; PULSE 81; RESP 18; O2SAT 99
== END 2019-03-08 10:50 | disposition home or self-care (01) ==
LOC: INF 09:52
PROVIDERS: Visit Provider Internal Medicine Medical Oncology
DX: D50.9 Iron deficiency anemia, unspecified (principal); T45.4X5A Adverse effect of iron and its compounds, initial encounter
CPT/HCPCS: 96365; J1439

== ENCOUNTER 2019-03-15 10:30 | Outpatient (CLI) | payer MEDICARE, OTHER, SELFPAY ==
[2019-03-15 10:50] VITALS: BP 108/64; PULSE 110; RESP 18
[2019-03-15 11:30] VITALS: BP 133/63; PULSE 94; RESP 18
== END 2019-03-15 11:30 | disposition home or self-care (01) ==
LOC: INF 10:30
PROVIDERS: Visit Provider Internal Medicine Medical Oncology
DX: D50.9 Iron deficiency anemia, unspecified (principal); T45.4X5A Adverse effect of iron and its compounds, initial encounter
CPT/HCPCS: 96365; J1439

== ENCOUNTER → 2019-03-16 07:10 | Outpatient (CLI) | payer MEDICARE, OTHER, SELFPAY ==
[2019-03-16 08:01] LABS: Basophils % 0.3 % (0.1-2.0); Eosinophils # 0.2 K/mm3 (0.0-0.4); Eosinophils % 2.4 % (0.1-12.0); Hemoglobin 11.6 g/dL (14.1-18.0); Lymphocytes # 0.8 K/mm3 (0.7-4.5); Lymphocytes % 11.6 % (10-50); Mean Corpuscular HGB Conc 30.6 g/dL (31.8-35.4); Mean Corpuscular Hemoglobin 26.3 pg (27.0-31.2); Mean Platelet Volume 6.5 fl (7.4-10.4); Monocytes # 0.4 K/mm3 (0.1-1.0); Monocytes % 6.1 % (1.7-9.3); Neutrophils # 5.5 K/mm3 (1.8-7.8); Neutrophils % 79.5 % (37.0-80.0); Platelet Count 762 K/mm3 (142-424); Red Blood Count 4.43 M/mm3 (4.60-6.20); Red Cell Distribution Width 16.3 % (11.5-17.5); White Blood Count 6.9 K/mm3 (4.8-10.8)
[2019-03-16 08:41] LABS: Chol/HDL Ratio 3.6 (1-3.5); Cholesterol 125 mg/dL (140-200); HDL Cholesterol 35 mg/dL (27-67); LDL Cholesterol 67 mg/dL (0-130); Triglycerides 116 mg/dL (30-200); VLDL Cholesterol 23 mg/dL (0-40)
[2019-03-16 08:50] LABS: Alanine Aminotransferase 15 U/L (12-78); Albumin Level 3.2 gm/dL (3.4-5.0); Albumin/Globulin Ratio 0.7 (1.1-1.8); Alkaline Phosphatase 100 U/L (46-116); Anion Gap 11.6 mEq/L (5-15); Aspartate Amino Transferase 5 U/L (15-37); Bilirubin,Total 0.4 mg/dL (0.2-1.0); Blood Urea Nitrogen 22 mg/dL (7-18); Calcium 9.6 mg/dL (8.5-10.1); Carbon Dioxide 30 mmol/L (21.0-32.0); Chloride 100 mmol/L (98-107); Creatinine,Serum 1.25 mg/dL (0.70-1.30); Estimated Glomerular Filt Rate 56 ml/min (>60); GFR (African American) 67 ML/MIN (>60); Globulin 4.3 gm/dl (1.3-3.2); Glucose 203 mg/dL (74-106); Potassium 4.6 mmoL/L (3.5-5.1); Sodium 137 mmol/L (136-145); Total Protein,Serum 7.5 gm/dL (6.4-8.2)
[2019-03-16 10:58] LABS: Hemoglobin A1C 10.3 % (0.0-7.0)
[2019-03-16 17:04] LABS: Prostate Specific Ag Screen < 0.1 ng/mL (0.0-4.0)
== END ==
PROVIDERS: PCP Internal Medicine Adolescent Medicine; Visit Provider Internal Medicine Medical Oncology
DX: E11.9 Type 2 diabetes mellitus without complications (principal); Z79.84 Long term (current) use of oral hypoglycemic drugs; M19.90 Unspecified osteoarthritis, unspecified site; Z12.5 Encounter for screening for malignant neoplasm of prostate
CPT/HCPCS: 36415; 80053; 80061; 83036; 85025; G0103

== ENCOUNTER → 2019-03-18 08:33 | Outpatient (CLI) | payer MEDICARE, OTHER, SELFPAY ==
--- NOTE | 2019-03-18 08:37 | CT_ITS ---
PROCEDURE: CT ABDOMEN PELVIS W CON CLINICAL INDICATION: ANEMIA Anemia of unknown etiology COMPARISON: No exams were available for comparison TECHNIQUE: IV Contrast: 75ML OPTIRAY 350 Oral Contrast 450ml Redicat Axial images obtained with sagittal and coronal reformats. All CT scans at the facility use one or more dose reduction, viz: automated exposure control, ma/kV adjustment per patient size (including targeted exams where dose is matched to indication, i.e. head), or iterative reconstruction technique. FINDINGS: No acute finding in the lung bases. Post cholecystectomy change. 3 mm hypodensity in the hepatic dome. This is nonspecific too small to categorize. The liver has an otherwise unremarkable appearance. The spleen, adrenal glands, pancreas, and kidneys have an unremarkable appearance. No renal or ureteral calculi. Given history of prior appendectomy. No intestinal obstruction or free air. There are few scattered diverticula but no evidence of diverticulitis. There is mild amount of retained colonic feces. There are few scattered small lymph nodes in the retroperitoneum. There is a small left inguinal hernia which contains fat. Degenerative changes are present in the lumbar spine. IMPRESSION: No acute abdominal or pelvic findings Constipation Dictated by: Brijesh Kilgore MD 03/18/2019 09:52 Signed by: <Electronically signed by Brijesh Kilgore MD in [place]> 03/18/2019 09:52
== END ==
PROVIDERS: PCP Internal Medicine Adolescent Medicine; Visit Provider Internal Medicine Medical Oncology
DX: D64.9 Anemia, unspecified (principal)
CPT/HCPCS: 74177; Q9967

== ENCOUNTER → 2019-05-02 08:27 | Outpatient (CLI) | payer MEDICARE, OTHER, SELFPAY ==
[2019-05-02 08:57] LABS: Blood Urea Nitrogen 20 mg/dL (7-18); Creatinine,Serum 1.09 mg/dL (0.70-1.30); Estimated Glomerular Filt Rate 65 ml/min (>60); GFR (African American) 79 ML/MIN (>60)
--- NOTE | 2019-05-02 09:03 | CT_ITS ---
PROCEDURE: CT CHEST W CON CLINICAL HISTORY: WEIGHT LOSS,ANEMIA COMPARISON: No exams were available for comparison TECHNIQUE: 75 cc intravenous contrast. Axial images obtained with sagittal and coronal reformats. All CT scans at the facility use one or more dose reduction, viz: automated exposure control, ma/kV adjustment per patient size (including targeted exams where dose is matched to indication, i.e. head), or iterative reconstruction technique. FINDINGS: Airway structures are patent without pleural effusion or pneumothorax. There is a benign calcified granuloma in the right lower lobe. There are a few hazy strands of increased density in the medial right lung base. The remainder of the lung queen are clear. Heart size is normal except there is anterior hypodense pericardial density which could be some fluid measuring 1.2 centimeters in thickness. There are coronary artery calcifications. Hilar and mediastinal areas and lower neck are unremarkable. Visualized upper abdominal structures are IMPRESSION: Unremarkable. Small anterior pericardial effusion. Linear atelectasis or scarring at the medial right lung base. No acute process. Dictated by: Augusto Wallace 05/02/2019 10:49 Electronically signed by Augusto Wallace in [place] 05/02/2019 10:49
== END ==
PROVIDERS: Visit Provider Internal Medicine Medical Oncology
DX: R63.4 Abnormal weight loss (principal); D64.9 Anemia, unspecified
CPT/HCPCS: 36415; 71260; 82565; 84520; Q9967

== ENCOUNTER 2019-05-05 09:00 | Outpatient (RCR) | payer MEDICARE, OTHER, SELFPAY | END 2019-05-05 09:05 | disposition home or self-care (01) | LOC: PT 09:00 | PROVIDERS: Visit Provider Internal Medicine Adolescent Medicine | DX: M25.562 Pain in left knee (principal) | CPT/HCPCS: 97010; 97014; 97016; 97110; 97140; 97163; G0283 ==

== ENCOUNTER → 2019-05-12 11:09 | Outpatient (CLI) | payer MEDICARE, OTHER, SELFPAY ==
[2019-05-12 11:47] LABS: Basophils % 0.3 % (0.1-2.0); Eosinophils # 0.1 K/mm3 (0.0-0.4); Eosinophils % 1.7 % (0.1-12.0); Hematocrit 37.7 % (42.0-52.0); Hemoglobin 10.6 g/dL (14.1-18.0); Lymphocytes # 0.6 K/mm3 (0.7-4.5); Lymphocytes % 8.8 % (10-50); Mean Corpuscular HGB Conc 28.1 g/dL (31.8-35.4); Mean Corpuscular Volume 88.8 fl (80-94); Mean Platelet Volume 7.1 fl (7.4-10.4); Monocytes # 0.3 K/mm3 (0.1-1.0); Monocytes % 5.1 % (1.7-9.3); Neutrophils # 5.5 K/mm3 (1.8-7.8); Neutrophils % 84.1 % (37.0-80.0); Red Blood Count 4.25 M/mm3 (4.60-6.20); Red Cell Distribution Width 17.1 % (11.5-17.5); White Blood Count 6.6 K/mm3 (4.8-10.8)
[2019-05-12 12:01] LABS: Platelet Count 724 K/mm3 (142-424)
[2019-05-12 14:40] LABS: Ferritin 1741 ng/mL (8-388)
== END ==
PROVIDERS: PCP Internal Medicine Adolescent Medicine; Visit Provider Internal Medicine Adolescent Medicine
DX: Z86.2 Personal history of diseases of the blood and blood-forming organs and certain disorders involving the immune mechanism (principal)
CPT/HCPCS: 36415; 82728; 85025

== ENCOUNTER → 2019-07-16 16:06 | Outpatient (CLI) | payer MEDICARE, OTHER, SELFPAY ==
[2019-07-16 17:52] LABS: Adenovirus F 40/41, stool Not Detected (NotDetected); Astrovirus Not Detected (NotDetected); Campylobacter Not Detected (NotDetected); Clostridium Difficile A/B, PCR Not Detected (NotDetected); Cryptosporidium Not Detected (NotDetected); Cyclospora Cayetanesis Not Detected (NotDetected); Entamoeba histolytica Not Detected (NotDetected); Enteroaggregative E coli Not Detected (NotDetected); Enteropathogenic E coli Not Detected (NotDetected); Enterotoxigenic E coli Not Detected (NotDetected); Giardia lamblia Not Detected (NotDetected); Norovirus Not Detected (NotDetected); Plesimonas Shigalloides, PCR Not Detected (NotDetected); Rotavirus A Not Detected (NotDetected); Salmonella, PCR Not Detected (NotDetected); Sapovirus Not Detected (NotDetected); Shiga-like toxin E coli Not Detected (NotDetected); Shigella Enterovasive E coli Not Detected (NotDetected); Vibrio Cholerae Not Detected (NotDetected); Vibrio, PCR Not Detected (NotDetected); Yersinia Entercolitica, PCR Not Detected (NotDetected)
== END ==
PROVIDERS: Visit Provider Internal Medicine Adolescent Medicine
DX: R19.7 Diarrhea, unspecified (principal)
CPT/HCPCS: 87506

== ENCOUNTER → 2019-07-17 22:24 | Outpatient (CLI) | payer MEDICARE, OTHER, SELFPAY | PROVIDERS: PCP Internal Medicine Adolescent Medicine; Visit Provider Internal Medicine Adolescent Medicine | DX: R19.7 Diarrhea, unspecified (principal) | CPT/HCPCS: 87045 ==

== ENCOUNTER → 2020-01-13 11:30 | Outpatient (CLI) | payer MEDICARE, OTHER, SELFPAY ==
[2020-01-13 14:13] LABS: Adenovirus F 40/41, stool Not Detected (NotDetected); Astrovirus Not Detected (NotDetected); Campylobacter Not Detected (NotDetected); Cryptosporidium Not Detected (NotDetected); Cyclospora Cayetanesis Not Detected (NotDetected); Entamoeba histolytica Not Detected (NotDetected); Enteroaggregative E coli Not Detected (NotDetected); Enteropathogenic E coli Not Detected (NotDetected); Enterotoxigenic E coli Not Detected (NotDetected); Giardia lamblia Not Detected (NotDetected); Norovirus Not Detected (NotDetected); Plesimonas Shigalloides, PCR Not Detected (NotDetected); Rotavirus A Not Detected (NotDetected); Salmonella, PCR Not Detected (NotDetected); Sapovirus Not Detected (NotDetected); Shiga-like toxin E coli Not Detected (NotDetected); Shigella Enterovasive E coli Not Detected (NotDetected); Vibrio Cholerae Not Detected (NotDetected); Vibrio, PCR Not Detected (NotDetected); Yersinia Entercolitica, PCR Not Detected (NotDetected)
[2020-01-13 17:08] LABS: Clostridium Difficile A/B, PCR Detected (NotDetected)
== END ==
PROVIDERS: Visit Provider Internal Medicine Adolescent Medicine
DX: K52.1 Toxic gastroenteritis and colitis (principal); T36.95XA Adverse effect of unspecified systemic antibiotic, initial encounter; A04.72 Enterocolitis due to Clostridium difficile, not specified as recurrent
CPT/HCPCS: 87506; 87507

== ENCOUNTER → 2020-01-17 09:10 | Outpatient (CLI) | payer MEDICARE, OTHER, SELFPAY ==
--- NOTE | 2020-01-17 09:17 | XR_ITS ---
PROCEDURE: XR FOOT WT BEARING RT 3V CLINICAL INDICATION: foot drop COMPARISON: XR ANKLE WT BEARING RT MIN 3V from 01/17/2020 FINDINGS: There are osteoarthritic changes at the 1st MTP joint with bony hypertrophy of the distal aspect of the 1st metatarsal No fracture or dislocation. Minimal bony hypertrophic changes are present at the distal tibia anteriorly. 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
--- NOTE | 2020-01-17 09:17 | XR_ITS ---
PROCEDURE: XR FOOT WT BEARING LT 3V CLINICAL INDICATION: foot drop COMPARISON: XR ANKLE WT BEARING LT MIN 3V from 01/17/2020 FINDINGS: No fracture or dislocation. No lytic or blastic change. There is normal mineralization. Mild osteoarthritic change of the 1st MTP joint with mild bony hypertrophy of the distal aspect of the 1st metatarsal. Borderline pes planus with mild degenerative changes of the talonavicular and navicular cuneiform joint. Mild bony hypertrophy is present at the distal aspect of the medial malleolus and there is some minimal sclerosis of the tip of the lateral malleolus. There is mild generalized osteopenia Other findings:None. IMPRESSION: Degenerative changes as described above, no acute finding Dictated by: Brijesh Kilgore MD 01/17/2020 14:30 Electronically signed by Brijesh Kilgore MD in [place] 01/17/2020 14:32
== END ==
PROVIDERS: PCP Internal Medicine Adolescent Medicine; Visit Provider Podiatrist
DX: E11.8 Type 2 diabetes mellitus with unspecified complications (principal); Z79.4 Long term (current) use of insulin
CPT/HCPCS: 73610; 73630

== ENCOUNTER → 2020-03-22 08:45 | Outpatient (CLI) | payer MEDICARE, OTHER, SELFPAY ==
[2020-03-22 10:15] LABS: Alanine Aminotransferase 17 U/L (12-78); Albumin/Globulin Ratio 1.6 (1.1-1.8); Alkaline Phosphatase 72 U/L (38-126); Anion Gap 12.8 mEq/L (5-15); Aspartate Amino Transferase 20 U/L (17-59); Bilirubin,Total 0.6 mg/dl (0.2-1.3); Blood Urea Nitrogen 24 mg/dl (9-20); Calcium 9.4 mg/dl (8.4-10.2); Carbon Dioxide 29 mmol/L (22.0-30.0); Chloride 98 mmol/L (98-107); Chol/HDL Ratio 4.3 (1-3.5); Cholesterol 186 mg/dl (140-200); Direct LDL Cholesterol 114.94 mg/dL (100-129); Estimated Glomerular Filt Rate 49 ml/min (>60); GFR (African American) 59 ML/MIN (>60); Globulin 2.5 g/dL (1.3-3.2); Glucose 348 mg/dl (74-100); HDL Cholesterol 43 mg/dl (40-60); Potassium 4.8 mmoL/L (3.5-5.1); Sodium 135 mmol/L (136-145); Total Protein,Serum 6.5 g/dl (6.3-8.2); Triglycerides 238 mg/dl (30-150); VLDL Cholesterol 48 mg/dL (0-40)
[2020-03-22 11:46] LABS: Prostate Specific Ag, Diagnost < 0.064 ng/ml (0.0-4.0)
== END ==
PROVIDERS: Visit Provider Internal Medicine Adolescent Medicine
DX: E78.5 Hyperlipidemia, unspecified (principal); R39.11 Hesitancy of micturition
CPT/HCPCS: 36415; 80053; 80061; 84153

== ENCOUNTER → 2020-03-29 09:57 | Outpatient (CLI) | payer MEDICARE, OTHER, SELFPAY ==
[2020-03-30 18:15] LABS: C difficile Toxins AB, EIA Negative (Negative)
== END ==
PROVIDERS: Visit Provider Internal Medicine Adolescent Medicine
DX: A04.72 Enterocolitis due to Clostridium difficile, not specified as recurrent (principal)
CPT/HCPCS: 87324

== ENCOUNTER 2020-09-20 11:00 | Outpatient (RCR) | payer MEDICARE, OTHER, SELFPAY ==
--- NOTE | 2020-07-24 09:43 | HMH.PTOPEV ---
PT Outpatient Evaluation Rehab PT Outpatient Evaluation Start: 07/24/20 09:26 Freq: Status: Active Protocol: Document 07/24/20 09:26 LORI (Rec: 07/24/20 09:43 LORI [id number]) Electronically Signed By Atul Iraheta, PT 07/24/20 09:26 Outpatient Therapy Subjective History Subjective History Pt reports L foot drop since L TKA sx. in . Pt reports 'slight' improvement in ability to DF L ankle in non-WB'ing position, but 'I still have to wear my AFO to keep from catching my toe'. Pt also reports some radicular N &T, and pain in LLE (stocking pattern). Chief Complaint Pain,Paresthesia,Weakness Symptom Type Ache,Dull Symptoms Relieved By Activity Symptoms Aggravated By Walking Prior Functional Limitations Walking,Stairs Current Functional Limitations Walking,Stairs Symptom Description Constant but Variable Level of pain today (0-10) 0 Pain scale - at its best (0-10) 0 Pain scale - at its worst (0-10) 8 Ankle/Foot Eval Gait Observation General Gait Pattern Observation Decrease Stride Lngth (L) Assistive Device Ambulation Assistive Device None Palpation Tenderness left Ankle/Foot Palpation Findings Tenderness Ankle/Foot Palpation Overall Comment 1-2/4 stocking pattern ROM Ankle/Foot Dorsiflexion w/Knee Extended +10 Active Range Motion (degrees) Ankle/Foot Dorsiflexion w/Knee Extended 0-5 Passive Range (degrees) Ankle/Foot Plantar Flexion Active Range 10-45 of Motion (degrees) Ankle/Foot Eversion Active Range of 0-12 Motion (degrees) Ankle/Foot Inversion Active Range of 0-35 Motion (degrees) MMT Ankle Dorsiflexion Strength Grade 2+ Poor+ Ankle Plantarflexion Strength Grade 4 Good Foot Eversion Strength Grade 3- Fair- Foot Inversion Strength Grade 3+ Fair+ Outpatient Therapy Assessment Impairments Problems/Impairmments Palpation Tenderness,Impaired Range of Motion,Impaired Strength,Impaired Gait Pattern ,Impaired Walking,Impaired Household Care,Subjective C/O Pain,Impaired Self Care/Self Management Prognosis Rehab Potential Fair Clinical Impression Consistent with Diagnosis Yes Short Term Goals Number of Weeks 4 Decreased Palpation Tenderness Yes: 1/4 Increase Range of Motion Yes: L DF 0 AROM Increase Strength
--- NOTE | 2020-08-23 11:08 | HMH.RHREAS ---
Rehab Reassessment Rehab OP Re-assessment Start: 08/23/20 10:48 Freq: Status: Active Protocol: Document 08/23/20 10:48 LORI (Rec: 08/23/20 11:00 LORI [id number]) Electronically Signed By Atul Iraheta, PT 08/23/20 10:48 Rehab Re-assessment Subjective Subjective PT REPORTS IMPROVED L ANKLE DF AND LLE PAIN LEVEL (0-4/10 ON VAS) SINCE I EVAL Objective Objective Notes MMT: L ANT TIB/DF 3-/5, EVR 3- 3-/5, INV 4/5, PF 4/5 AROM: L ANKLE DF +5, EVR 0-15 TTP: 1-2/4 STOCKING PATTERN L LE Assessment Progress Assessment Progressing as Expected Assessment Notes PT W/IMPROVED STRENGTH AND AROM Patient goals met STG'S 11/07 LTG'S 10/10 Goals Not Met STG'S 10/07, LTG'S 02/09 Plan Plan PT TO CONT. W/SKILLED P.T. TO MAKE FURTHER IMPROVEMENTS IN AROM, STRENGTH, AND TTP TO ALLOW FOR OPTIMAL FUNCTION Frequency of Therapy 1-2X/WK Duration of therapy 3-4 WKS Time and Billing Re-Eval Time 15 Re-Eval Billing Units 0 PHYSICIAN CERTIFICATION: I certify the specified therapy services for Eric Vázquez JR are required, authorized, and reviewed every 30 days.
== END 2020-09-20 11:05 | disposition home or self-care (01) ==
LOC: PT 11:00
PROVIDERS: Visit Provider Podiatrist
DX: M21.372 Foot drop, left foot (principal)
CPT/HCPCS: 97014; 97163; 97164; G0283

== ENCOUNTER → 2020-10-22 09:51 | Outpatient (CLI) | payer MEDICARE, OTHER, SELFPAY ==
[2020-10-22 11:17] LABS: Alanine Aminotransferase 29 U/L (12-78); Albumin Level 4.6 g/dl (3.5-5.0); Albumin/Globulin Ratio 1.9 (1.1-1.8); Alkaline Phosphatase 67 U/L (38-126); Anion Gap 15.8 mEq/L (5-15); Aspartate Amino Transferase 30 U/L (17-59); Bilirubin,Total 0.5 mg/dl (0.2-1.3); Blood Urea Nitrogen 23 mg/dl (9-20); Calcium 9.5 mg/dl (8.4-10.2); Carbon Dioxide 26 mmol/L (22.0-30.0); Chloride 102 mmol/L (98-107); Cholesterol 125 mg/dl (140-200); Estimated Glomerular Filt Rate 42 ml/min (>60); GFR (African American) 50 ML/MIN (>60); Globulin 2.4 g/dL (1.3-3.2); Glucose 143 mg/dl (74-100); HDL Cholesterol 41 mg/dl (40-60); Potassium 4.8 mmoL/L (3.5-5.1); Sodium 139 mmol/L (136-145); Triglycerides 157 mg/dl (30-150); VLDL Cholesterol 31 mg/dL (0-40)
[2020-10-22 11:26] LABS: Hemoglobin A1C 8.3 % (4.0-6.0)
[2020-10-22 11:28] LABS: Direct LDL Cholesterol 54.16 mg/dL (100-129)
== END ==
PROVIDERS: Visit Provider Internal Medicine Adolescent Medicine
DX: E11.9 Type 2 diabetes mellitus without complications (principal); E78.5 Hyperlipidemia, unspecified; Z79.4 Long term (current) use of insulin
CPT/HCPCS: 36415; 80053; 80061; 83036

== ENCOUNTER → 2020-12-28 12:49 | Outpatient (CLI) | payer MEDICARE, OTHER, SELFPAY ==
--- NOTE | 2020-12-28 12:51 | CA_ITS ---
APPROVED REPORT EXAM: Comprehensive 2D, Doppler, and color-flow Echocardiogram Seed Packer: RT Reyna(R) Ht: 6 ft 0 in Wt: 215lbs BSA: 2.20 BP: 135/76 mmHg Indications: HTN, SOB, DM, hyperlipidemia, RBBB, HX TIA, SVT, CAD, HX CA, GERD 2D Dimensions LVOT 2.27 cm (M/F) 1.5-2.5 LA Volume 18.30 mL LA Volume Index 8.35 mL/m2 (M/F) 16-34 M-Mode Dimensions RVDd 3.36 cm (0.9-2.6) LA Diam 3.43 cm (1.9-4.0) LVDd 3.04 cm (3.5-5.7) Ao Diam 3.55 cm (2.0-3.7) LVDs 2.00 cm (3.5-5.7) IVSd 1.56 cm (0.6-1.1) PWd 1.04 cm (0.6-1.1) EF (Teich) 64.90% FS 34.20% EDV (Teich) 36.20 mL ESV (Teich) 12.70 mL LV Diastology E Decel Time 190.00 (160-240 msec) E/A Ratio 0.6 MED E' 6.20 (< 7 cm/sec) E'/MED E' Ratio 10.58 (>14) LAT E' 7.40 (<10 cm/sec) E/LAT E' Ratio 8.86 (>14) Mitral Valve MV E Max Franko. 66.00 (40-130 cm/s) MV A Velocity 120.00 (40-130 cm/s) E/A Ratio 0.54 MV Decel. Time 190.00 (160-240 ms) MV PHT 56.00 ms Left Ventricle Left atrium is mildly enlarged, left ventricle is normal size, mild concentric left ventricular hypertrophy, visually estimated ejection fraction 55% with no regional wall motion abnormality, grade 1 diastolic dysfunction seen without tissue Doppler evidence of raise left atrial pressure. Right Ventricle Right atrium and right ventricle mildly enlarged with normal contractility. Aortic Valve Aortic valve is minimally thickened and calcified, there is no aortic stenosis or aortic insufficiency. Mitral Valve Mitral valve has mitral calcification, there is no mitral stenosis, there is trace mitral regurgitation. Tricuspid Valve Tricuspid valve grossly normal, there is trace tricuspid regurgitation, tricuspid regurgitation jet velocity is inadequate for calculation of the right ventricular systolic pressure. Pulmonic Valve Pulmonic valve is poorly visualized. Great Vessels Aortic root is normal size. Pericardium No significant pericardial effusion noted. Conclusion 1. Mild biatrial alignment, normal left ventricular size, mild concentric left ventricular hypertrophy, visually estimated ejection fraction 55% with no regional wall motion abnormality, grade 1 diastolic dysfunction seen without tissue Doppler evidence of raise left atrial pressure. 2. Trace mitral and tricuspid regurgitation. 3. No significant pericardial effusion noted. Electronically signed by : Kvng Baeza, 12/28/2020 14:45:06
== END ==
PROVIDERS: PCP Internal Medicine Adolescent Medicine; Visit Provider Nurse Practitioner Family
DX: I10 Essential (primary) hypertension (principal); I25.10 Atherosclerotic heart disease of native coronary artery without angina pectoris; I25.84 Coronary atherosclerosis due to calcified coronary lesion; R00.0 Tachycardia, unspecified; R94.31 Abnormal electrocardiogram [ECG] [EKG]
CPT/HCPCS: 93306

== ENCOUNTER → 2021-01-11 10:17 | Outpatient (CLI) | payer MEDICARE, OTHER, SELFPAY | PROVIDERS: Visit Provider Internal Medicine Gastroenterology | DX: Z01.812 Encounter for preprocedural laboratory examination (principal); Z20.822 Contact with and (suspected) exposure to COVID-19; Z12.11 Encounter for screening for malignant neoplasm of colon | CPT/HCPCS: U0003 ==

== ENCOUNTER 2021-01-14 08:52 | Day surgery (SDC) | payer MEDICARE, OTHER, SELFPAY ==
[2021-01-09 11:28] VITALS: BMI 29.2
[2021-01-14] VITALS (8 sets, daily range): BP systolic 101–155; BP diastolic 69–86; PULSE 86–106; RESP 16–20; TEMP 36.3–36.4; O2SAT 97–99
[2021-01-14 09:36] LABS: POC Glucose,Bedside 197 (70-110)
--- NOTE | 2021-01-14 10:32 | HMH.ANESCL ---
[facility] Anesthesia Checklist - Patient Identification Patient Identification: Arm Band - Structural Data Admitted From: Home Planned Operative Procedure/s: colonoscopy Consent for Planned Operative Procedure(s) Verified: Yes Verified Documents: Surgical Consent, History and Physical - NPO Status Verified Time NPO: 00:00 - Additional verifications Anesthesia Reactions: No - Airway Assessment C-Spine Mobility Assessed: Yes (mp2) TMJ Mobility Assessed: Yes Dentition: Good Dentition - Neurological Assessment Level of Consciousness: Awake, Alert - Anesthesia Plan Anesthesia Risk discussed: Yes Anesthesia Plan: Verified ASA Class: III Anesthesia Type: MAC [facility] History I have reviewed the patient's past medical history: Yes Medical History: Reports:: Cancer, Diabetes Mellitus Type 2, Gastroesophageal Reflux Disease(GERD), Hyperlipidemia, Hypertension, Lung Disease, Transient Ischemic Attacks (TIA) Denies:: Diabetes Mellitus Type 1, Internal Pacemaker, MRSA, Seizures *Have you ever received a pneumonia vaccine?: Yes *Have you received a flu vaccine this season?: No Other Medical History: Reports: Other Anesthesia experience/problems:: nac Laterality Cases: Left: Arthroscopy Knee, Other, Bilateral: Tonsillectomy Other Surgeries: Yes: Appendectomy, Cardiac Catheterization, Cholecystectomy, Colonoscopy, EGD, Hernia Repair, Sinus Surgery, Other. No: Pacemaker Amputation: No Fractures: No - *Social History Last grade of school completed: Some college Smoking Status: Never smoker Alcohol Intake: current Alcohol Intake Frequency:: holidays/special occasions only Substance Use Type: denies use *Occupational Status:: retired Housing: house Household Members: spouse *Travel in the last 8 weeks: None Family Hx:: Cancer, Hypertension
--- NOTE | 2021-01-14 11:00 | HMH.PROC ---
[facility] Procedure Note Procedure Note:: Colonoscopy Procedure Report: Colonoscopy with cold snare polypectomy Endoscopist: Roland Medina II, MD Referring physician: Alfredo Aguiar M.D. Date of Procedure: January 14, 2021 Equipment: Olympus 190 variable stiffness pediatric colonoscope Sedation: MAC sedation Indication: Mr. Vázquez is an 80-year-old gentleman with a personal history of colon polyps. In April 2019, he did have a periappendiceal orifice polyp and transverse colon polyp 1 of which was adenomatous. He does state that his daughter had uterine cancer and his sister had colon cancer and breast cancer. His mother had lymphoma. He reports no abdominal pain, weight loss, change in his bowel habits or rectal bleeding. Procedure: Prior to the procedure, a history and physical exam was performed, and patient's medications and allergies were reviewed. The risks, benefits and alternatives of the sedation and procedure were discussed with the patient. All questions were answered and informed consent was obtained. The patient was brought to the procedure room. Patient identification and proposed procedure were verified by the physician and the nurse. The patient was placed in a left lateral decubitus position and the scope was passed under direct vision. Throughout the procedure, the patient's blood pressure, pulse, and oxygen saturations were monitored continuously. The colonoscopy was accomplished without difficulty. The patient tolerated the procedure well. Findings: On digital rectal examination there was normal rectal tone. There were no external hemorrhoids. There was no palpable prostate. The colonoscope was introduced through the anal canal to the rectum and advanced to the cecum. The ileocecal valve and appendiceal orifice were identified. The scope was advanced a short distance into the ileum which appeared grossly normal. The scope was then withdrawn into the colon. There was a diminutive 3 mm cecal polyp that was removed via cold snare polypectomy. The remaining cecum, ascending, transverse, descending, sigmoid and rectum were grossly normal. There were no mucosal abnormalities identified. Upon retroflexion within the rectum there were grade 2 internal hemorrhoids.The preparation was excellent throughout with [place] Preparation Score of 9. The cecal time was 11 minutes. Impression: 1. Diminutive cecal polyp 2. Grade 2 internal hemorrhoids Plan: Certainly the patient will not require any further surveillance colonoscopy. I would encourage bulk fiber supplementation on a maintenance basis.
== END 2021-01-14 11:58 | disposition home or self-care (01) ==
PROVIDERS: PCP Internal Medicine Adolescent Medicine; Visit Provider Internal Medicine Gastroenterology
PROC: 0DJD8ZZ Inspection of Lower Intestinal Tract, Via Natural or Artificial Opening Endoscopic (ICD-10-PCS; CPT 45378; principal; 2021-01-14 10:00)
DX: Z12.11 Encounter for screening for malignant neoplasm of colon (principal); K63.5 Polyp of colon; K64.1 Second degree hemorrhoids; Z86.010 Personal history of colon polyps; E11.9 Type 2 diabetes mellitus without complications; K21.9 Gastro-esophageal reflux disease without esophagitis; E78.5 Hyperlipidemia, unspecified; I10 Essential (primary) hypertension; Z86.73 Personal history of transient ischemic attack (TIA), and cerebral infarction without residual deficits; Z80.59 Family history of malignant neoplasm of other urinary tract organ; Z80.0 Family history of malignant neoplasm of digestive organs; Z80.3 Family history of malignant neoplasm of breast
CPT/HCPCS: 45385; 82962; 88305

== ENCOUNTER → 2021-05-13 10:34 | Outpatient (CLI) | payer MEDICARE, OTHER, SELFPAY ==
[2021-05-13 11:19] LABS: Basophils % 0.6 % (0.1-2.0); Eosinophils # 0.3 K/mm3 (0.0-0.4); Eosinophils % 3.9 % (0.1-12.0); Hemoglobin 13.6 g/dL (14.1-18.0); Lymphocytes # 1.6 K/mm3 (0.7-4.5); Lymphocytes % 23.7 % (10-50); Mean Corpuscular HGB Conc 32.4 g/dL (31.8-35.4); Mean Corpuscular Hemoglobin 30.7 pg (27.0-31.2); Mean Corpuscular Volume 94.8 fl (80-94); Mean Platelet Volume 7.7 fl (7.4-10.4); Monocytes # 0.3 K/mm3 (0.1-1.0); Monocytes % 4.3 % (1.7-9.3); Neutrophils # 4.6 K/mm3 (1.8-7.8); Neutrophils % 67.5 % (37.0-80.0); Platelet Count 393 K/mm3 (142-424); Red Blood Count 4.43 M/mm3 (4.60-6.20); White Blood Count 6.8 K/mm3 (4.8-10.8)
[2021-05-13 12:27] LABS: Alanine Aminotransferase 23 U/L (12-78); Albumin Level 4.3 g/dl (3.5-5.0); Albumin/Globulin Ratio 1.6 (1.1-1.8); Alkaline Phosphatase 66 U/L (38-126); Anion Gap 14.6 mEq/L (5-15); Aspartate Amino Transferase 25 U/L (17-59); Bilirubin,Total 0.4 mg/dl (0.2-1.3); Blood Urea Nitrogen 20 mg/dl (9-20); Calcium 9.4 mg/dl (8.4-10.2); Carbon Dioxide 26 mmol/L (22.0-30.0); Chloride 103 mmol/L (98-107); Chol/HDL Ratio 2.7 (1-3.5); Cholesterol 126 mg/dl (140-200); Estimated Glomerular Filt Rate 45 ml/min (>60); GFR (African American) 54 ML/MIN (>60); Globulin 2.7 g/dL (1.3-3.2); Glucose 80 mg/dl (74-100); HDL Cholesterol 46 mg/dl (40-60); Potassium 4.6 mmoL/L (3.5-5.1); Sodium 139 mmol/L (136-145); Triglycerides 90 mg/dl (30-150); VLDL Cholesterol 18 mg/dL (0-40)
[2021-05-13 12:53] LABS: Direct LDL Cholesterol 60.97 mg/dL (100-129)
[2021-05-13 15:31] LABS: Hemoglobin A1C 8.1 % (4.0-6.0)
== END ==
PROVIDERS: Visit Provider Internal Medicine Adolescent Medicine
DX: E11.9 Type 2 diabetes mellitus without complications (principal); E78.5 Hyperlipidemia, unspecified; Z79.4 Long term (current) use of insulin
CPT/HCPCS: 36415; 80053; 80061; 83036; 85025

== ENCOUNTER → 2021-06-13 14:17 | Outpatient (CLI) | payer MEDICARE, OTHER, SELFPAY | PROVIDERS: PCP Radiology Diagnostic Radiology; Visit Provider Nurse Practitioner | DX: Z20.822 Contact with and (suspected) exposure to COVID-19 (principal) | CPT/HCPCS: C9803; U0003; U0005 ==

== ENCOUNTER 2021-08-03 07:49 | Outpatient (CLI) | payer MEDICARE, OTHER, SELFPAY ==
[2021-08-03] VITALS (7 sets, daily range): BP systolic 105–127; BP diastolic 69–76; PULSE 72–87; RESP 18; TEMP 36.9; O2SAT 96–99
== END 2021-08-03 10:30 | disposition home or self-care (01) ==
PROVIDERS: PCP Internal Medicine Adolescent Medicine; Visit Provider Emergency Medicine
DX: U07.1 COVID-19 (principal); Z23 Encounter for immunization
CPT/HCPCS: 96365

== ENCOUNTER 2022-07-18 15:11 | Emergency (ER) | payer MEDICARE, OTHER, SELFPAY ==
[2022-07-18 15:24] VITALS: BP 140/70; PULSE 70; RESP 16; TEMP 36.9; O2SAT 98; BMI 25.1
[2022-07-18 15:45] VITALS: BP 140/70; PULSE 70; RESP 16; TEMP 36.9; O2SAT 98; BMI 25.2
--- NOTE | 2022-07-18 16:02 | EXP.UTC ---
Discharge Plan Disposition Patient Disposition: Home, Self-Care Condition: Good Prescriptions Prescriptions: No Action rosuvastatin 20 mg tablet 20 mg PO DAILY lisinopril 2.5 mg tablet 2.5 mg PO DAILY vitamin A-vit C-vit E-zinc-Cu Tablet 1 tab PO DAILY metformin 500 mg tablet 1,000 mg PO BID aspirin [Aspir-81] 81 mg tablet,delayed release (DR/EC) 81 mg PO DAILY Spiriva Respimat 2.5 mcg/actuation mist 2 inh INHALATION DAILY Probiotic Acidophilus 1.5 mg (250 million cell) capsule 2,000 mmu cells PO DAILY Rx Instructions: give with food (meal/snack) insulin asp prt-insulin aspart [Novolog Mix 70-30 U-100 Insuln] 100 unit/mL (70-30) solution 16 unit SQ USEASDIRECTD Label Comments: 18 morning 5 noon 16 HS omeprazole 20 mg capsule,delayed release(DR/EC) 20 mg PO BID Label Comments: vilazodone 40 mg tablet 40 mg PO DAILY Rx Instructions: must administer with a meal/food Referrals Follow up/Referrals: Alfredo Aguiar MD [Primary Care Provider] - See instructions Activity Restrictions/Add. Instructions Additional Instructions/Restrictions: Try Pepcid Complete We will call with results of flu/COVID test F/U with Dr Aguiar Return to ER if chest pain, shortness of breath Clinical Impressions Clinical Impression: Gastroesophageal reflux disease Instructions Patient Instructions: DI for Gastroesophageal Reflux Disease (GERD) Discharge ED Provider: Jo Ann Zayas [facility] General Stated complaint: Abd Pain.fever Mode of Arrival: Ambulatory Source of Information: Patient Limitations: No Limitations Time Seen by Provider: 07/18/22 16:02 Description of Symptoms (Recalled from Triage Doc. by RN): pt advises he thinks he has covid and hasnt been feeling good for the past couple of days History of Present Illness Provider Complaint: Patient states that he has not been feeling well for a few days. Requests to be tested for COVID. No fever. Has had acid reflux. Worse when he lays flat. Prilosec didn't help much but Melita Arredondo did. Feels like he might vomit acid, especially when he lies flat. Denies chest pain or shortness of breath. Onset (ago): day(s) (3) Location: abdomen Relieving factors: none Exacerbating factors: none Associated symptoms: denies other symptoms Treatments prior to arrival: other (Omeprazole, Melita [place]) Related Data Home Medications Medication Instructions Recorded Confirmed metformin 500 mg tablet 1,000 mg PO BID SUGAR 11/16/18 06/25/22 aspirin 81 mg tablet,delayed 81 mg PO DAILY probiotic 09/08/19 06/25/22 release (Aspir-) tiotropium bromide 2.5 2 inh inhalation DAILY allergies 09/08/19 06/25/22 mcg/actuation mist for inhalation (Spiriva Respimat) Lactobacillus acidophilus 1.5 mg 2,000 mmu cells PO DAILY thinner 06/26/20 06/25/22 (250 million cell) capsule (Probiotic Acidophilus) rosuvastatin 20 mg tablet 20 mg PO DAILY Cholesterol 06/26/20 06/25/22 omeprazole 20 mg capsule,delayed 20 mg PO BID GERD 10/17/20 06/25/22 release vilazodone 40 mg tablet 40 mg PO DAILY Depression 12/24/21 06/25/22 insulin aspar prt-insulin aspart 16 unit SQ USEASDIRECTD Diabetes 01/29/22 06/25/22 100 unit/mL (70-30) subcutaneous soln (Novolog Mix 70-30 U-100 Insuln) lisinopril 2.5 mg tablet 2.5 mg PO DAILY 01/29/22 06/25/22 vitamin A-vit C-vit E-zinc-Cu 1 tab PO DAILY 06/25/22 06/25/22 tablet Allergies Allergy/AdvReac Type Severity Reaction Status Date / Time No Known Allergies Allergy Verified 06/25/22 11:17 [facility] Disclaimer: The information contained in this section may have been updated after the patient was seen, as this information can be updated by other users. Medical History (Updated 07/18/22 @ 16:21 by FE Felton) Asthma Depression Diabetes mellitus, type 2 History of anemia History of gastroesophageal reflux (GERD) Migra
[2022-07-18 16:43] VITALS: BP 140/70; PULSE 70; RESP 16; TEMP 36.9; O2SAT 98
[2022-07-18 17:13] LABS: Coronavirus 19, PCR Not Detected (NotDetected); Influenza A, PCR Not Detected (NotDetected); Influenza B, PCR Not Detected (NotDetected)
== END 2022-07-18 16:45 | disposition home or self-care (01) ==
LOC: ER 15:25 → UTC 15:28
PROVIDERS: Emergency Provider Physician Assistant; PCP Internal Medicine Adolescent Medicine
DX: K21.9 Gastro-esophageal reflux disease without esophagitis (principal)
CPT/HCPCS: 99212; C9803; G0463; U0003; U0005

== ENCOUNTER 2022-07-21 17:34 | Emergency (ER) | payer MEDICARE, OTHER, SELFPAY ==
[2022-07-21 19:31] VITALS: BP 0/0; PULSE 0; RESP 0; TEMP -17.7; TEMP 0
== END 2022-07-21 19:34 | disposition home or self-care (01) ==
PROVIDERS: Emergency Provider Nurse Practitioner; PCP Internal Medicine Adolescent Medicine
DX: Z53.21 Procedure and treatment not carried out due to patient leaving prior to being seen by health care provider (principal)

== ENCOUNTER → 2022-07-23 10:15 | Outpatient (CLI) | payer MEDICARE, OTHER, SELFPAY ==
--- NOTE | 2022-07-23 10:22 | XR_ITS ---
FINAL REPORT CLINICAL HISTORY: arch pain COMPARISON: January 17, 2020 FINDINGS: LEFT FOOT Three views of the left foot demonstrate no acute fracture or dislocation. There are mild degenerative changes of the great toe. The soft tissues are unremarkable. IMPRESSION: Mild degenerative changes of the great toe with no acute bony abnormality. Reviewed, Interpreted and Dictated by Kal Angel III, MD Transcribed by Susie Oglesby Authenticated and [facility]
== END ==
PROVIDERS: PCP Internal Medicine Adolescent Medicine; Visit Provider Nurse Practitioner Family
DX: M79.672 Pain in left foot (principal)
CPT/HCPCS: 73630

== ENCOUNTER 2022-10-15 13:39 | Emergency (ER) | payer MEDICARE, OTHER, SELFPAY ==
[2022-10-15] VITALS (17 sets, daily range): BP systolic 121–151; BP diastolic 61–96; PULSE 68–97; RESP 12–21; TEMP 36.8; O2SAT 94–100; BMI 29.8
--- NOTE | 2022-10-15 14:02 | CT_ITS ---
FINAL REPORT CLINICAL HISTORY: expressive aphasia, stroke symptoms COMPARISON: 05/14/2019 FINDINGS: Axial images of the head were obtained without contrast. Coronal reformatted images were also obtained. This study was performed with techniques to keep radiation doses as low as reasonably achievable (ALARA). Individualized dose reduction techniques using automated exposure control or adjustment of mA and/or kV according to the patient''s size were employed. There is generalized age-appropriate atrophy. Periventricular low-attenuation areas are seen consistent with moderate chronic ischemic changes. There is mild ventriculomegaly which is stable. There is no evidence of intracranial hemorrhage or mass. There is no evidence of acute infarct. There is no evidence of shift of the midline structures. No skull abnormality is seen on the bone window images. IMPRESSION: Atrophy and moderate periventricular chronic ischemic changes. No acute intracranial abnormality identified. Reviewed, Interpreted and Dictated by Kal Angel III, MD Transcribed by Kari Carter Authenticated and [facility]
--- NOTE | 2022-10-15 14:02 | HMH.EDGENADL ---
Discharge Plan Disposition Patient Disposition: Xfer Short-Term Hosp Condition: Fair Prescriptions Prescriptions: No Action rosuvastatin 20 mg tablet 20 mg PO DAILY lisinopril 2.5 mg tablet 2.5 mg PO DAILY vitamin A-vit C-vit E-zinc-Cu Tablet 1 tab PO DAILY metformin 500 mg tablet 1,000 mg PO BID aspirin [Aspir-81] 81 mg tablet,delayed release (DR/EC) 81 mg PO DAILY Spiriva Respimat 2.5 mcg/actuation mist 2 inh INHALATION DAILY Probiotic Acidophilus 1.5 mg (250 million cell) capsule 2,000 mmu cells PO DAILY Rx Instructions: give with food (meal/snack) insulin asp prt-insulin aspart [Novolog Mix 70-30 U-100 Insuln] 100 unit/mL (70-30) solution 16 unit SQ USEASDIRECTD Label Comments: 18 morning 5 noon 16 HS omeprazole 20 mg capsule,delayed release(DR/EC) 20 mg PO BID Label Comments: vilazodone 40 mg tablet 40 mg PO DAILY Rx Instructions: must administer with a meal/food Referrals Follow up/Referrals: Alfredo Aguiar MD [Primary Care Provider] - See instructions Clinical Impressions Clinical Impression: Brain TIA Discharge ED Provider: Wilberto Hdz General Adult HPI General Chief complaint: Neuro Symptoms/Deficit Stated complaint: confusion Time Seen by Provider: 10/15/22 13:44 History of Present Illness HPI narrative: States at lunch today at around noon he began having problems thinking of things he was trying to say. He describes it as a confusion, but he says he was aware that it was happening. He says that he could think of things but they would come out of his mouth wrong. However, also says that he could not come up with the names that he was trying to say as well. He was aware that he was having the problem and it was very distressing to him. He thinks the symptoms lasted about 2 hours and now appears to be resolved. Not associated with visual disturbance, or numbness or weakness to the extremities. He has a slight headache. He is diabetic and he has a Dexcom monitor which was reading 120s. He has not otherwise recently been ill. He takes low-dose aspirin every morning and had his dose this morning. Related Data Home Medications Medication Instructions Recorded Confirmed metformin 500 mg tablet 1,000 mg PO BID SUGAR 11/16/18 07/23/22 aspirin 81 mg tablet,delayed 81 mg PO DAILY probiotic 09/08/19 07/23/22 release (Aspir-) tiotropium bromide 2.5 2 inh inhalation DAILY allergies 09/08/19 07/23/22 mcg/actuation mist for inhalation (Spiriva Respimat) Lactobacillus acidophilus 1.5 mg 2,000 mmu cells PO DAILY thinner 06/26/20 07/23/22 (250 million cell) capsule (Probiotic Acidophilus) rosuvastatin 20 mg tablet 20 mg PO DAILY Cholesterol 06/26/20 07/23/22 omeprazole 20 mg capsule,delayed 20 mg PO BID GERD 10/17/20 07/23/22 release vilazodone 40 mg tablet 40 mg PO DAILY Depression 12/24/21 07/23/22 insulin aspar prt-insulin aspart 16 unit SQ USEASDIRECTD Diabetes 01/29/22 07/23/22 100 unit/mL (70-30) subcutaneous soln (Novolog Mix 70-30 U-100 Insuln) lisinopril 2.5 mg tablet 2.5 mg PO DAILY 01/29/22 07/23/22 vitamin A-vit C-vit E-zinc-Cu 1 tab PO DAILY 06/25/22 07/23/22 tablet Allergies Allergy/AdvReac Type Severity Reaction Status Date / Time No Known Allergies Allergy Verified 07/23/22 09:10 [facility] Disclaimer: The information contained in this section may have been updated after the patient was seen, as this information can be updated by other users. Medical History (Updated 10/15/22 @ 18:27 by Wilberto Hdz MD) Asthma Callus of foot Depression Diabetes mellitus, type 2 History of anemia History of gastroesophageal reflux (GERD) Migraine Surgical History History of appendectomy History of cholecystectomy Social History Smoking Status:
--- NOTE | 2022-10-15 14:04 | XR_ITS ---
FINAL REPORT CLINICAL HISTORY: stroke sx FINDINGS: SINGLE-VIEW CHEST The heart size is normal. The mediastinum is normal. There is mild left base atelectasis or scar. There is no pneumothorax. IMPRESSION: Left base atelectasis or scar. Reviewed, Interpreted and Dictated by Kal Angel III, MD Transcribed by Kari Carter Authenticated and [facility]
--- NOTE | 2022-10-15 14:05 | PC.NURSE ---
glucose finger stick is 175 at this time
[2022-10-15 14:12] LABS: POC Glucose,Bedside 175 (70-110)
[2022-10-15 14:16] LABS: Chloride 101 mmol/L (98-107); Potassium 4.4 mmoL/L (3.5-5.1); Sodium 138 mmol/L (136-145)
[2022-10-15 14:19] LABS: Alanine Aminotransferase 30 U/L (12-78); Albumin Level 4.5 g/dl (3.5-5.0); Albumin/Globulin Ratio 1.6 (1.1-1.8); Alkaline Phosphatase 62 U/L (38-126); Anion Gap 14.4 mEq/L (5-15); Aspartate Amino Transferase 32 U/L (17-59); Bilirubin,Total 0.5 mg/dl (0.2-1.3); Blood Urea Nitrogen 16 mg/dl (9-20); Carbon Dioxide 27 mmol/L (22.0-30.0); Creatinine Clearance Estimated 52 mL/min (50-200); Estimated Glomerular Filt Rate 45 ml/min (>60); GFR (African American) 54 ML/MIN (>60); Globulin 2.8 g/dL (1.3-3.2); Total Protein,Serum 7.3 g/dl (6.3-8.2)
[2022-10-15 14:20] LABS: Calcium 8.4 mg/dl (8.4-10.2); Glucose 152 mg/dl (74-100)
[2022-10-15 14:25] LABS: C-Reactive Protein 0.5 mg/L (0-4)
--- NOTE | 2022-10-15 14:38 | CT_ITS ---
FINAL REPORT CLINICAL HISTORY: expressive aphasia, STROKE SYMPTOMS FINDINGS: Thin-section axial CT with IV contrast supplemented with multi planar reconstruction under CT angiogram protocol was performed of the head and neck. This study was performed technique to keep radiation doses as low as reasonably achievable, (ALARA). NASCET criteria was utilized during interpretation. CTA head: No aneurysm is seen. Major intracranial vessels are patent without significant stenosis. IMPRESSION: No evidence of significant stenosis, aneurysm or major branch occlusion. CTA neck: Aortic arch: Arch shows no significant narrowing. Great vessel origins are widely patent. Right carotid: No significant stenosis is seen at the cervical common or internal carotid artery. Left carotid: No significant stenosis is seen at the cervical common or internal carotid artery. Vertebrals: Left vertebral artery is dominant. No significant stenosis is present. IMPRESSION: No evidence of significant stenosis or major branch occlusion. Reviewed, Interpreted and Dictated by Kal Angel III, MD Transcribed by Susie Oglesby Authenticated and . [facility]
--- NOTE | 2022-10-15 14:58 | ECG_ITS ---
APPROVED REPORT Exam: Resting ECG HR:84 bpm ECG Measurements Heart Rate 84 AXES WY 157 P 60 QRSd 97 QRS 60 QT 349 T 57 QTc 391 Conclusion SINUS RHYTHM NORMAL ECG UNCONFIRMED REPORT Electronically signed by : Alfredo Aguiar MD 10/15/2022 20:23:59
--- NOTE | 2022-10-15 15:00 | PC.NURSE ---
rounded on pt no complaints at this time ,family at bedside
--- NOTE | 2022-10-15 15:04 | PC.NURSE ---
pt states that his right ear feels like something is in it. aware
[2022-10-15 15:25] LABS: Erythrocyte Sedimentation Rate 20 mm/hr (0-20)
--- NOTE | 2022-10-15 15:35 | PC.NURSE ---
pt daughter came out of patient room and reported to this nurse that the patient is having difficulty speaking again MD and this nurse to bedside for further evaluation. on assessment of patient he was alert and oriented and able to answer orientation questions but unable to say simple words and when asked to name the glasses on a staff members face he called them a hat.
--- NOTE | 2022-10-15 15:40 | PC.NURSE ---
francisco shared imaging to [facility] and paged [facility] neuro for consultation at this time per MD request
[2022-10-15 15:44] LABS: Basophils % 0.5 % (0.1-2.0); Eosinophils # 0.2 K/mm3 (0.0-0.4); Eosinophils % 2.6 % (0.1-12.0); Hematocrit 43.1 % (42.0-52.0); Hemoglobin 13.5 g/dL (14.1-18.0); Lymphocytes # 0.7 K/mm3 (0.7-4.5); Lymphocytes % 11.6 % (10-50); Mean Corpuscular HGB Conc 31.4 g/dL (31.8-35.4); Mean Corpuscular Hemoglobin 30.3 pg (27.0-31.2); Mean Corpuscular Volume 96.3 fl (80-94); Mean Platelet Volume 8.6 fl (7.4-10.4); Monocytes # 0.4 K/mm3 (0.1-1.0); Monocytes % 5.8 % (1.7-9.3); Neutrophils # 5.1 K/mm3 (1.8-7.8); Neutrophils % 79.5 % (37.0-80.0); Platelet Count 373 K/mm3 (142-424); Red Blood Count 4.47 M/mm3 (4.60-6.20); Red Cell Distribution Width 13.3 % (11.5-17.5); White Blood Count 6.4 K/mm3 (4.8-10.8)
[2022-10-15 15:55] LABS: Coronavirus 19, PCR Not Detected (NotDetected); Influenza A, PCR Not Detected (NotDetected); Influenza B, PCR Not Detected (NotDetected)
--- NOTE | 2022-10-15 15:58 | PC.NURSE ---
Maria Ines paged [facility] neuro at this time
--- NOTE | 2022-10-15 16:43 | PC.NURSE ---
called [facility] back at this time to check on patient status. they stated their phones went down for 45 minutes and that they are trying to get caught up on their call backs and still have this patient on the list for emergent call back.
--- NOTE | 2022-10-15 16:45 | PC.NURSE ---
rounded on pt, pt resting with eyes closed, family at bs
--- NOTE | 2022-10-15 16:52 | PC.NURSE ---
speaking to neurology at at this time
[2022-10-15 17:00] LABS: Microscopic, Urine URINE MICROSCOPIC (MICROSCOPIC)
--- NOTE | 2022-10-15 17:09 | PC.NURSE ---
[facility] declined pt at this time due to capacity. Paging [facility] at this time
[2022-10-15 17:31] LABS: Appearance,Urine CLEAR (Clear); Bilirubin,Urine Negative (Negative); Blood, Urine Negative (Negative); Color,Urine YELLOW (Yellow); Glucose,Urine (UA) Negative (Negative); Ketones,Urine Negative (Negative); Leukocyte Esterase,Urine Negative (Negative); Nitrate,Urine Negative (Negative); PH,Urine 6.5 (5.0-8.5); Protein,Urine Negative (Negative); Specific Gravity, Urine <= 1.005 (1.005-1.030); Urobilinogen,Urine 0.2 EU/dl (0.2)
[2022-10-15 17:35] LABS: WBC,Urine Occasional #/hpf (0-3)
--- NOTE | 2022-10-15 17:51 | PC.NURSE ---
er speaking to [facility] about transfer
--- NOTE | 2022-10-15 18:20 | PC.NURSE ---
attempted to call report to [facility]. stated pt wasn't assigned a nurse yet and asked to wait until casino shift manager came on at 7pm to take report. this nurse asked to take report as soon as possible instead of at casino shift manager so we dont delay care for the patient at this time.
--- NOTE | 2022-10-15 18:44 | PC.NURSE ---
attempted to call report again. they stated that it would take 1-2 hours to clean the patients room and that slot shift supervisor would call for report when its ready
--- NOTE | 2022-10-15 19:58 | PC.NURSE ---
Dr. Hdz at BS
--- NOTE | 2022-10-15 20:24 | PC.NURSE ---
Pt resting in bed at this time. No new needs.
--- NOTE | 2022-10-15 20:56 | PC.NURSE ---
Pt up to bathroom and back to bed. Pt provided with pillow and warm blanket. Pt asked for phone to call daughter. Call light was placed within reach and pt educated on using call light.
--- NOTE | 2022-10-15 21:09 | PC.NURSE ---
report given to ELICEO Pa on 5A
== END 2022-10-15 21:17 | disposition short-term general hospital (02) ==
PROVIDERS: Emergency Provider Emergency Medicine; PCP Internal Medicine Adolescent Medicine
DX: G45.9 Transient cerebral ischemic attack, unspecified (principal); J45.909 Unspecified asthma, uncomplicated; L84 Corns and callosities; E11.9 Type 2 diabetes mellitus without complications; D64.9 Anemia, unspecified; K21.9 Gastro-esophageal reflux disease without esophagitis; G43.909 Migraine, unspecified, not intractable, without status migrainosus; Z90.49 Acquired absence of other specified parts of digestive tract; Z20.822 Contact with and (suspected) exposure to COVID-19
CPT/HCPCS: 70450; 70496; 70498; 71045; 80053; 81001; 82962; 85025; 85651; 86140; 93005; 96360; 99285; C9803; Q9967; U0003; U0005

== ENCOUNTER → 2023-01-01 13:28 | Outpatient (CLI) | payer MEDICARE, OTHER, SELFPAY | PROVIDERS: PCP Internal Medicine Adolescent Medicine; Visit Provider Physician Assistant | DX: G45.9 Transient cerebral ischemic attack, unspecified (principal); R00.1 Bradycardia, unspecified | CPT/HCPCS: 93270 ==

== ENCOUNTER → 2023-02-11 08:19 | Outpatient (CLI) | payer MEDICARE, OTHER, SELFPAY ==
--- NOTE | 2023-02-11 08:46 | MR_ITS ---
FINAL REPORT CLINICAL HISTORY: TIA last tia was rough x 3 months ago per patient 20ml given COMPARISON: 10/14/2018 FINDINGS: Multiplanar MR imaging of the brain was performed without and with contrast. There is mild age-appropriate atrophy. Scattered foci of increased T2 signal are seen in the cerebral white matter that have a nonspecific appearance but likely represent severe chronic ischemic/gliotic changes. There is no evidence of intracranial hemorrhage or mass. No abnormal ventricular dilatation is identified. There is no evidence of shift of the midline structures. No abnormal extra-axial fluid collection is seen. No area of abnormal restricted diffusion is identified. The posterior fossa and brainstem have an unremarkable appearance. No abnormal contrast enhancement is seen. Normal major vessel vascular flow voids are seen. IMPRESSION: M atrophy and severe chronic ischemic/gliotic changes. Findings are stable since previous. No acute intracranial abnormality. Reviewed, Interpreted and Dictated by Kal Angel III, MD Transcribed by Kari Carter Authenticated and [facility]
[2023-02-11 09:04] LABS: Blood Urea Nitrogen 29 mg/dl (9-20); Estimated Glomerular Filt Rate 34 ml/min (>60); GFR (African American) 41 ML/MIN (>60)
[2023-02-11 09:54] LABS: Vitamin B12 221 pg/mL (239-931)
== END ==
PROVIDERS: PCP Internal Medicine Adolescent Medicine; Visit Provider Specialist
DX: E53.8 Deficiency of other specified B group vitamins (principal); G45.8 Other transient cerebral ischemic attacks and related syndromes
CPT/HCPCS: 36415; 70553; 82565; 82607; 84520; A9576

== ENCOUNTER 2023-02-11 08:25 | Day surgery (SDC) | payer MEDICARE, OTHER, SELFPAY ==
[2023-02-11 08:32] VITALS: BMI 28.6
[2023-02-11 10:17] VITALS: BP 144/96; PULSE 80; PULSE 83; RESP 20; O2SAT 100
[2023-02-11 10:48] VITALS: BP 144/96; PULSE 83; RESP 20; O2SAT 100
--- NOTE | 2023-02-11 10:59 | P.PCN_ITS ---
[facility] Loop Recorder Date: 02/11/23 Time: 10:59 Procedure Performed:: Implantation of loop recorder Indication:: Thromboembolic TIA/CVA Suspected atrial fibrillation, paroxysmal Technique:: Patient was brought to the cardiac Wallpaper Consultant. After informed consent obtained, 1% lidocaine with epinephrine was used to anesthetize the site along the left anterior aspect of the chest near the sternal border. Using the preformed scalpel, an incision was made and using the supplied preloaded apparatus, the loop recorder was placed subcutaneously without difficulty. Following the deployment of the loop recorder interrogation of the device was performed to ensure appropriate voltage was being detected. Once this was verified, Steri- Strips were placed over the incision and the patient was prepped to discharge home. Patient tolerated the procedure well with minimal discomfort. Impression:: Successful implantation of loop recorder Serial Number:: [place] [employer] Model number [id number] Serial #[id number] Plan:: Routine postop
== END 2023-02-11 10:50 | disposition home or self-care (01) ==
PROVIDERS: PCP Internal Medicine Adolescent Medicine; Visit Provider Internal Medicine
DX: I10 Essential (primary) hypertension (principal); E78.5 Hyperlipidemia, unspecified; E11.9 Type 2 diabetes mellitus without complications; I48.0 Paroxysmal atrial fibrillation; I25.10 Atherosclerotic heart disease of native coronary artery without angina pectoris; Z79.4 Long term (current) use of insulin; Z79.899 Other long term (current) drug therapy
CPT/HCPCS: 33285; 36415; 70553; 82565; 82607; 84520; A9576; C1764

== ENCOUNTER → 2023-06-08 11:09 | Outpatient (POV) | payer MEDICARE, OTHER, SELFPAY | PROVIDERS: Visit Provider Nurse Practitioner | DX: Z00.00 Encounter for general adult medical examination without abnormal findings (principal) ==

== ENCOUNTER → 2023-07-21 10:23 | Outpatient (CLI) | payer MEDICARE, OTHER, SELFPAY ==
--- NOTE | 2023-07-21 10:27 | US_ITS ---
FINAL REPORT CLINICAL HISTORY: deminished pedal pulses, DM, discolored left foot per patient, claudication, rest pain. FINDINGS: COMPLETE ANKLE/BRACHIAL INDICES BILATERAL Ankle brachial indices were obtained. The right GENNA is 1.3. The left GENNA is 1.1. IMPRESSION: ABIs are within normal limits bilaterally. Reviewed, Interpreted and Dictated by Kilo Saucedo MD Transcribed by Kari Carter Authenticated and [facility][1]
== END ==
PROVIDERS: PCP Internal Medicine Adolescent Medicine; Visit Provider Nurse Practitioner Family
DX: R09.89 Other specified symptoms and signs involving the circulatory and respiratory systems (principal)
CPT/HCPCS: 93923

== ENCOUNTER 2023-07-25 08:18 | Emergency (ER) | payer MEDICARE, OTHER, SELFPAY ==
[2023-07-25] VITALS (11 sets, daily range): BP systolic 86–133; BP diastolic 59–91; PULSE 50–58; RESP 9–17; TEMP 36.8; O2SAT 90–100; BMI 26.4
--- NOTE | 2023-07-25 08:16 | ECG_ITS ---
APPROVED REPORT Exam: Resting ECG HR:55 bpm ECG Measurements Heart Rate 55 AXES WV 171 P 163 QRSd 103 QRS 140 QT 397 T 147 QTc 386 Conclusion SINUS BRADYCARDIA ARM LEADS REVERSED [INVERTED P AND QRS IN I] BORDERLINE ECG UNCONFIRMED REPORT Electronically signed by : Alfredo Aguiar MD 07/31/2023 08:04:23
--- NOTE | 2023-07-25 08:22 | XR_ITS ---
PROCEDURE INFORMATION: Exam: XR Chest Exam date and time: 07/25/2023 8:27 AM Age: 82 years old Clinical indication: Dyspnea; Prior surgery; Surgery date: 6+ months; Surgery type: Loop recorder TECHNIQUE: Imaging protocol: Radiologic exam of the chest. Views: 1 view. COMPARISON: CR XR CHEST PORTABLE 10/15/2022 2:24 PM FINDINGS: Tubes, catheters and devices: Loop recorder device noted. Lungs: Unremarkable. No consolidation. Pleural spaces: Unremarkable. No pleural effusion. No pneumothorax. Heart/Mediastinum: Unremarkable. No cardiomegaly. Bones/joints: Unremarkable. IMPRESSION: No acute findings.
--- NOTE | 2023-07-25 08:24 | HMH.EDGENADL ---
Discharge Plan Disposition Patient Disposition: Home, Self-Care Prescriptions Prescriptions: No Action rosuvastatin 20 mg tablet 20 mg PO DAILY lisinopril 2.5 mg tablet 2.5 mg PO DAILY clopidogrel 75 mg tablet 75 mg PO DAILY insulin aspart U-100 [Novolog FlexPen U-100 Insulin] 100 unit/mL (3 mL) insulin pen 4 unit SQ USEASDIRECTD Patient Comments: INJECT 6 UNITS with breakfast AND dinner, AND 8 UNITS with LUNCH; plus correction 140. Max daily DOSE of 50 UNITS insulin glargine [Lantus Solostar U-100 Insulin] 100 unit/mL (3 mL) insulin pen 16 unit SQ DAILY Patient Comments: INJECT 20 UNITS SUBCUTANEOUSLY ONCE DAILY IN THE MORNING vitamin B complex [B Complex-Vitamin B12] Tablet 1 tab PO DAILY mecobalamin (vitamin B12) 1,000 mcg tablet,disintegrating 1,000 mcg sublingual DAILY Rx Instructions: place tablet under tongue and allow to dissolve for at least30 secs before swallowing metformin 500 mg tablet 1,000 mg PO BID Spiriva Respimat 2.5 mcg/actuation mist 2 inh INHALATION DAILY Probiotic Acidophilus 1.5 mg (250 million cell) capsule 2,000 mmu cells PO DAILY Rx Instructions: give with food (meal/snack) Jardiance 10 mg tablet 10 mg PO DAILY Qty: 90 3RF bisoprolol fumarate 5 mg tablet See Rx Instructions .ROUTE .COMPLEX 90 Days Qty: 45 2RF Dose Instruction: TAKE 1/2 TABLET BY MOUTH EVERY DAY Rx Instructions: TAKE 1/2 TABLET BY MOUTH EVERY DAY omeprazole 20 mg capsule,delayed release(DR/EC) 20 mg PO BID Patient Comments: vilazodone 40 mg tablet 40 mg PO DAILY Rx Instructions: must administer with a meal/food Referrals Follow up/Referrals: Ezio Savage MD [Staff Physician] - See instructions Activity Restrictions/Add. Instructions Additional Instructions/Restrictions: No emergent medical condition identified today please follow-up with Dr. Savage in outpatient setting to further discuss restratification and further evaluation of the chest pain episode that you experienced today. Clinical Impressions Clinical Impression: Chest pain Discharge ED Provider: Marek Holt General Adult HPI General Chief complaint: Dizziness Stated complaint: Chest Pain Time Seen by Provider: 07/25/23 08:22 History of Present Illness HPI narrative: Patient is an 82-year-old male present today with chest pain. States that around 1:30 in the morning he woke up and had some discomfort in the right superior lateral aspect of his chest wall and had this discomfort for around an hour at which point it spontaneously resolved. It was nonexertional no diaphoresis or shortness of breath associated with it. No radiation. No history of DVT or PE that he is aware of. He does have a history of atrial fibrillation and believes that he is on blood thinners and from a chart review he is on Plavix but does not appear to be on other medications for anticoagulation or antiplatelets. Patient states he currently has no chest pain. He does state he feels a little lightheaded but no other symptoms at the moment. No fevers chills cough lower extremity swelling hemoptysis prolonged immobilizations etc. preceding today's event. When asked why he did not come to the emergency department when the symptoms began he stated that it was his daughter that made him come to the emergency department this morning after he told her what was going on and she is a nurse in [place] and told him to call 911 and get to the hospital immediately. Related Data Home Medications Medication Instructions Recorded Confirmed metformin 500 mg tablet 1,000 mg PO BID SUGAR 11/16/18 07/21/23 tiotropium bromide 2.5 2 inh inhalation DAILY allergies 09/08/19 07/21/23 mcg/actuation mist for inhalation (Spiriva Respimat) Lactobacillus acidophilus 250 2,000 mmu cells PO DAILY thinner 06/26/20 07/21/23 million cell capsule (Probiotic Acidop
[2023-07-25 08:29] LABS: Basophils % 0.6 % (0.1-2.0); Eosinophils # 0.2 K/mm3 (0.0-0.4); Eosinophils % 5.7 % (0.1-12.0); Hematocrit 46.1 % (42.0-52.0); Hemoglobin 14.9 g/dL (14.1-18.0); Lymphocytes # 0.6 K/mm3 (0.7-4.5); Lymphocytes % 15.7 % (10-50); Mean Corpuscular HGB Conc 32.3 g/dL (31.8-35.4); Mean Corpuscular Hemoglobin 30.2 pg (27.0-31.2); Mean Corpuscular Volume 93.5 fl (80-94); Mean Platelet Volume 8.3 fl (7.4-10.4); Monocytes # 0.3 K/mm3 (0.1-1.0); Monocytes % 6.9 % (1.7-9.3); Neutrophils # 2.9 K/mm3 (1.8-7.8); Platelet Count 284 K/mm3 (142-424); Red Blood Count 4.93 M/mm3 (4.60-6.20); Red Cell Distribution Width 13.8 % (11.5-17.5); White Blood Count 4.1 K/mm3 (4.8-10.8)
[2023-07-25 08:41] LABS: Chloride 105 mmol/L (98-107); Potassium 5.4 mmoL/L (3.5-5.1); Sodium 137 mmol/L (136-145)
[2023-07-25 08:44] LABS: Alanine Aminotransferase 22 U/L (12-78); Albumin Level 4.2 g/dl (3.5-5.0); Albumin/Globulin Ratio 1.4 (1.1-1.8); Alkaline Phosphatase 58 U/L (38-126); Anion Gap 15.4 mEq/L (5-15); Aspartate Amino Transferase 36 U/L (17-59); Bilirubin,Total 0.8 mg/dl (0.2-1.3); Blood Urea Nitrogen 29 mg/dl (9-20); Carbon Dioxide 22 mmol/L (22.0-30.0); Creatinine Clearance Estimated 35 mL/min (50-200); Estimated Glomerular Filt Rate 32 ml/min (>60); GFR (African American) 39 ML/MIN (>60); Globulin 2.9 g/dL (1.3-3.2); Glucose 208 mg/dl (74-100); Total Protein,Serum 7.1 g/dl (6.3-8.2)
[2023-07-25 08:49] LABS: D-Dimer 0.87 ug/mL (0.0-0.5)
[2023-07-25 09:07] LABS: Troponin I < 0.01 ng/ml (0.00-0.034)
--- NOTE | 2023-07-25 10:20 | PC.NURSE ---
PT to restroom
[2023-07-25 12:06] LABS: Troponin I < 0.01 ng/ml (0.00-0.034)
--- NOTE | 2023-07-25 12:33 | PC.NURSE ---
report called to Andrew Chavez
== END 2023-07-25 12:34 | disposition home or self-care (01) ==
PROVIDERS: Emergency Provider Student in an Organized Health Care Education/Training Program; PCP Internal Medicine Adolescent Medicine
DX: R07.89 Other chest pain (principal); E87.5 Hyperkalemia; R00.1 Bradycardia, unspecified; I48.0 Paroxysmal atrial fibrillation; E11.65 Type 2 diabetes mellitus with hyperglycemia; J45.909 Unspecified asthma, uncomplicated; K21.9 Gastro-esophageal reflux disease without esophagitis; I10 Essential (primary) hypertension; E78.5 Hyperlipidemia, unspecified; Z79.4 Long term (current) use of insulin; Z79.84 Long term (current) use of oral hypoglycemic drugs; Z79.01 Long term (current) use of anticoagulants
CPT/HCPCS: 71045; 80053; 84484; 85025; 85378; 93005; 99285

== ENCOUNTER 2023-08-17 06:32 | Outpatient (CLI) | payer MEDICARE, OTHER, SELFPAY ==
--- NOTE | 2023-08-17 06:36 | NM_ITS ---
APPROVED REPORT Exam: Nuclear Stress Test Indication: Chest pain, DM, Family history Patient Location: Outpatient Stress Tech: Chanel Sims AR Tech:Gabrielle Meehan, ARRT, RT (R)(N) Ht: 6 ft 2 in Wt: 185 lbs HR: 55 bpm BP: 124/72 mmHg BSA: 2.10 m2 TID: 1.15 BMI: 23.7 History: Chest pain, DM, Family history Procedure: Patient received 0.4 mg of intravenous Lexiscan, resting heart rate 55 bpm, resting blood pressure 124/72 mmHg, with Lexiscan maximum heart rate achieved was 74 bpm which is % of the maximum predicted heart rate and blood pressure was 124/72 mmHg. With Lexiscan, patient denied any complaint of chest pain. Cardiac Stress and Resting SPECT Images: Cardiac Stress and Resting SPECT images were obtained using technetium 99m Myoview 29.3 mCi stress and 10.29 mCi at rest. Technically difficult study due to significant GI radiotracer uptake, which is in close proximity to the LV border. This may affect the diagnostic interpretation of the study findings. Resting and stress imaging in supine and prone positions demonstrate a medium sized, mild, partially reversible perfusion defect in the inferior LV wall. There is also a small sized, moderate, fixed perfusion defect in the LV apex. Gated imaging demonstrates normal global and regional LV systolic function. LVEF is calculated at 63%. Conclusion: Medium sized, mild, partially reversible perfusion defect in the inferior LV wall. Findings are suggestive of partial reversible ischemia. There is also a small sized, moderate, fixed perfusion defect in the LV apex. Gated imaging demonstrates normal global and regional LV systolic function. LVEF is calculated at 63%. Electronically signed by : Maricel Aaron MD 08/18/2023 05:01:56
--- NOTE | 2023-08-17 07:51 | CA_ITS ---
APPROVED REPORT EXAM: Comprehensive 2D, Doppler, and color-flow Echocardiogram Visitor Services Assistant: Donna Ramires RDCS Ht: 6 ft 1 in Wt: 227lbs BSA: 2.27 BP: 121/68 mmHg Indications: CP,RBBB,TIA,AF,HTN,HLP M-Mode Dimensions RVDd 3.19 cm (0.9-2.6) LA Diam 3.58 cm (1.9-4.0) LVDd 5.13 cm (3.5-5.7) LVDs 3.42 cm (3.5-5.7) IVSd 0.76 cm (0.6-1.1) PWd 0.76 cm (0.6-1.1) EF (Teich) 61.70% FS 33.30% EDV (Teich) 125.50 mL ESV (Teich) 48.10 mL LV Diastology E Decel Time 230 (160-240 msec) E/A Ratio 0.9 Mitral Valve MV E Max Franko. 93.0 (40-130 cm/s) MV A Velocity 98.0 (40-130 cm/s) E/A Ratio 0.94 MV PHT 67.0 ms Tricuspid Valve TR P. Velocity 249.00 cm/s RAP Estimate 10.00 mmHg RVSP 34.80 mmHg Left Ventricle The left ventricle is normal size. The left ventricular systolic function is normal. The left ventricular ejection fraction is within the normal range. There is normal left ventricular wall thickness. There is normal LV segmental wall motion. The diastolic function is indeterminate. LVEF is 55%. Right Ventricle The right ventricle is mildly dilated. The right ventricular systolic function is normal. Atria The left atrium size is normal. The right atrium size is normal. The interatrial septum is not well-visualized. Aortic Valve The aortic valve is normal in structure. There is no aortic valvular stenosis. Trace aortic regurgitation. Mitral Valve The mitral valve is normal in structure. No evidence of mitral valve stenosis. Trace mitral regurgitation. Tricuspid Valve The tricuspid valve leaflets are thin and pliable. Trace tricuspid regurgitation. There is insufficient TR jet to estimate RVSP. Pulmonic Valve The pulmonic valve is not well-visualized. Great Vessels The aortic root is normal in size. The ascending aorta is normal in size. IVC is normal in size and collapses >50% with inspiration. Pericardium There is no pericardial effusion. Other Information Study Quality: Technically Difficult Conclusion Technically difficult study due to poor acoustic windows. Normal biventricular systolic function. Mild RV dilation. No significant valvular stenosis or regurgitation in the visualized valves. Electronically signed by : Maricel Aaron MD 08/19/2023 04:17:19
[2023-08-17] MEDS: REGADENOSON 0.4MG/5ML SYRINGE 0.400000000000000022 MG IV (08:23)
[2023-08-17] MEDS: SODIUM CHLORIDE 0.9% 10ML SYR (RAD ONLY) 10 ML IV ×2 (08:23)
[2023-08-17] MEDS: ISOTOPE MYOVIEW (PER STUDY) 1 DOSE IV (08:23)
--- NOTE | 2023-08-17 10:04 | CA_ITS ---
APPROVED REPORT Exam: Pharmacologic Technologist: Chanel Zelaya, Ht: 6 ft 1 in Wt: 227 lbs BSA: 2.27 m2 HR: 55 bpm BP: 124/72 mmHg Rhythm: NSR Medical History Medications: Lisinopril,,,,, Omeprazole,,,,, Spiriva,,,,, Probiotic,,,,, CloPIdogrel,,,,, BisOPROLOL Fumarate,,,,, LanTUS,,,,, NovOLOG,,,,, JaRDiance,,,,, RoSUVASTATIN,,,,, Vilazodone,,,,, Vitamin B-12,,,,, Stress Test Details Test: LEXISCAN Reason for pharmacologic stress test: physical limitation. HR Resting HR: 55 bpm Max Heart Rate (APMHR): 136 bpm Max HR Achieved: 74 bpm Target HR (85% APMHR): 116 bpm % of APMHR: 54 Recovery HR: 63 bpm BP Resting BP: 124.0/72.0 mmHg Max BP: 124.0/72.0 mmHg Recovery BP: 121.0/72.0 mmHg ECG Resting ECG: Normal sinus rhythm Stress ECG: No significant ST changes Arrhythmia: PVCs Clinical Exercise duration: 04:00 min Highest Stage Achieved: Exercise capacity: 1.0 METs Stress ECG Conclusion Symptoms: Dizzy. No SOA or Chest Pain Arrhythmias/Ectopy: Rare PVC ST-T Changes: No significant ST changes. EKG is unremarkable due to Lexiscan infusion. Conclusion: Unremarkable Lexiscan stress test. Myoview images are reported separately. Test Summary REST 17:34 . . 55 . 124/ 72 . . Stage 1 01:00 . . 58 . . . . Stage 2 01:00 . . 73 . 97/ 55 . . Stage 3 01:00 . . 70 . 113/ 66 . . Stage 4 01:00 . . 67 . 119/ 64 . Stop exercise at 04:00 RECOVERY 01:00 . . 68 . . . . RECOVERY 02:00 . . 67 . 119/ 71 . . RECOVERY 03:00 . . 66 . 118/ 75 . . RECOVERY 03:52 . . 64 . 121/ 72 . . Electronically signed by : Maricel Aaron MD 08/18/2023 04:58:06
== END 2023-08-17 23:59 ==
LOC: RAD 06:32
PROVIDERS: PCP Internal Medicine Adolescent Medicine; Visit Provider Internal Medicine
DX: I10 Essential (primary) hypertension (principal); I25.10 Atherosclerotic heart disease of native coronary artery without angina pectoris; R07.9 Chest pain, unspecified
CPT/HCPCS: 78452; 93017; 93018; 93306; A9502; J2785

== ENCOUNTER 2023-08-18 12:22 | Outpatient (CLI) | payer MEDICARE, OTHER, SELFPAY ==
[2023-08-18 12:34] LABS: Microscopic, Urine URINE MICROSCOPIC (MICROSCOPIC)
--- NOTE | 2023-08-18 12:43 | US_ITS ---
FINAL REPORT TECHNIQUE: Ultrasound images of the kidneys and bladder were obtained. CLINICAL HISTORY: CHRONIC KIDNEY DISEASE FINDINGS: The right kidney measures 11.3 cm in length. It is normal in echogenicity. There is no hydronephrosis. The left kidney measures 11.5 cm in length. It is normal in echogenicity. There is no hydronephrosis. The spleen is unremarkable. There is fatty infiltration of the liver. IMPRESSION: Fatty liver. Reviewed, Interpreted and Dictated by Kal Angel III, MD Transcribed by Kari Carter Authenticated and [facility]
[2023-08-18 12:44] LABS: Basophils % 0.3 % (0.1-2.0); Eosinophils # 0.3 K/mm3 (0.0-0.4); Eosinophils % 4.6 % (0.1-12.0); Hematocrit 45.5 % (42.0-52.0); Lymphocytes % 16.6 % (10-50); Mean Corpuscular HGB Conc 30.7 g/dL (31.8-35.4); Mean Corpuscular Hemoglobin 28.9 pg (27.0-31.2); Mean Corpuscular Volume 93.9 fl (80-94); Monocytes # 0.3 K/mm3 (0.1-1.0); Monocytes % 4.6 % (1.7-9.3); Neutrophils # 4.4 K/mm3 (1.8-7.8); Platelet Count 288 K/mm3 (142-424); Red Blood Count 4.84 M/mm3 (4.60-6.20); Red Cell Distribution Width 13.5 % (11.5-17.5); White Blood Count 5.9 K/mm3 (4.8-10.8)
[2023-08-18 12:48] LABS: Appearance,Urine CLEAR (Clear); Bilirubin,Urine Negative (Negative); Blood, Urine Negative (Negative); Color,Urine YELLOW (Yellow); Glucose,Urine (UA) 3+ (Negative); Ketones,Urine Negative (Negative); Leukocyte Esterase,Urine Negative (Negative); Nitrate,Urine Negative (Negative); Protein,Urine Negative (Negative); Specific Gravity, Urine 1.015 (1.005-1.030); Urobilinogen,Urine 0.2 EU/dl (0.2)
[2023-08-18 13:12] LABS: WBC,Urine Occasional #/hpf (0-3)
[2023-08-18 13:13] LABS: Bacteria,Urine Trace /lpf; RBC,Urine Occasional #/hpf (0-3); Squamous Epithelial Cell,Urine Occasional #/hpf (0-5)
[2023-08-18 13:54] LABS: Chloride 101 mmol/L (98-107)
[2023-08-18 13:55] LABS: Albumin Level 3.9 g/dl (3.5-5.0); Potassium 4.5 mmoL/L (3.5-5.1); Sodium 137 mmol/L (136-145)
[2023-08-18 13:57] LABS: Blood Urea Nitrogen 28 mg/dl (9-20); Estimated Glomerular Filt Rate 32 ml/min (>60); GFR (African American) 39 ML/MIN (>60)
[2023-08-18 13:58] LABS: Anion Gap 13.5 mEq/L (5-15); Carbon Dioxide 27 mmol/L (22.0-30.0); Glucose 275 mg/dl (74-100); Phosphorous 4.2 mg/dl (2.5-4.5)
[2023-08-18 14:16] LABS: Intact Parathyroid Hormone 180.1 pg/mL (7.5-53.5)
[2023-08-18 14:21] LABS: 25-OH Vitamin D, Total 22.8 ng/mL (30-100)
[2023-08-18 16:02] LABS: Creatinine,Urine Random 70 mg/dL (Not Estab.)
== END 2023-08-18 23:59 ==
LOC: RAD 12:23
PROVIDERS: PCP Internal Medicine Adolescent Medicine; Visit Provider Nurse Practitioner
DX: N18.32 Chronic kidney disease, stage 3b (principal)
CPT/HCPCS: 36415; 76770; 80069; 81001; 82306; 82570; 83970; 84155; 85025

== ENCOUNTER 2023-08-24 10:21 | Outpatient (POV) | payer MEDICARE, OTHER, SELFPAY | END 2023-08-24 23:59 | disposition home or self-care (01) | LOC: SC 10:21 | PROVIDERS: Visit Provider Nurse Practitioner | DX: Z00.00 Encounter for general adult medical examination without abnormal findings (principal) ==

== ENCOUNTER 2023-10-06 08:42 | Outpatient (CLI) | payer MEDICARE, OTHER, SELFPAY ==
[2023-10-06 08:57] LABS: Adenovirus F 40/41, stool Not Detected (NotDetected); Astrovirus Not Detected (NotDetected); Campylobacter Not Detected (NotDetected); Clostridium Difficile A/B, PCR Not Detected (NotDetected); Cryptosporidium Not Detected (NotDetected); Cyclospora Cayetanesis Not Detected (NotDetected); Entamoeba histolytica Not Detected (NotDetected); Enteroaggregative E coli Not Detected (NotDetected); Enteropathogenic E coli Not Detected (NotDetected); Enterotoxigenic E coli Not Detected (NotDetected); Giardia lamblia Not Detected (NotDetected); Norovirus Not Detected (NotDetected); Plesimonas Shigalloides, PCR Not Detected (NotDetected); Rotavirus A Not Detected (NotDetected); Salmonella, PCR Not Detected (NotDetected); Sapovirus Not Detected (NotDetected); Shiga-like toxin E coli Not Detected (NotDetected); Shigella Enterovasive E coli Not Detected (NotDetected); Vibrio Cholerae Not Detected (NotDetected); Vibrio, PCR Not Detected (NotDetected); Yersinia Entercolitica, PCR Not Detected (NotDetected)
== END 2023-10-06 23:59 ==
LOC: LAB.DROPOF 08:43
PROVIDERS: PCP Internal Medicine Adolescent Medicine; Visit Provider Nurse Practitioner Family
DX: R19.4 Change in bowel habit; R19.7 Diarrhea, unspecified; K21.9 Gastro-esophageal reflux disease without esophagitis; R10.9 Unspecified abdominal pain
CPT/HCPCS: 87506

== ENCOUNTER 2024-02-26 09:09 | Outpatient (CLI) | payer MEDICARE, OTHER, SELFPAY ==
--- NOTE | 2024-02-26 09:15 | XR_ITS ---
FINAL REPORT CLINICAL HISTORY: VITAMIN D DEFICIENCY COMPARISON: None FINDINGS: Using L1-4, the bone mineral density of the spine is 1.159 g/cm2, corresponding to T-score of 0.6 which is within normal limits. Using the left hip, the bone mineral density of the femoral neck is 0.777 g/cm2, corresponding to a T-score of -1.1 which is consistent with osteopenia. Using the right hip, the bone mineral density of the femoral neck is 0.832 g/cm2, corresponding to a T-score of -0.7 which is within normal limits. FRAX 10 year fracture risk is 2.7% for a hip fracture and 8.7% for a major osteoporotic fracture. NOTE: T-score: Standard deviation compared with peak bone mass of young adult mean. *Following the recommendations of the International Society of Bone densitometry, classification of hip BMD is based on the lower of two T-scores; total hip or femoral neck. IMPRESSION: Diminished bone mineral density consistent with osteopenia. Reviewed, Interpreted and Dictated by Inna Khan MD Transcribed by Nadia Hensley Authenticated and . [facility]
== END 2024-02-26 23:59 | disposition home or self-care (01) ==
LOC: RAD 09:09
PROVIDERS: PCP Nurse Practitioner; Visit Provider Nurse Practitioner
DX: M81.0 Age-related osteoporosis without current pathological fracture (principal); N18.9 Chronic kidney disease, unspecified; M89.9 Disorder of bone, unspecified; E55.9 Vitamin D deficiency, unspecified
CPT/HCPCS: 77080

== ENCOUNTER 2024-03-21 08:43 | Outpatient (CLI) | payer MEDICARE, OTHER, SELFPAY ==
[2024-03-21 08:54] LABS: Microscopic, Urine URINE MICROSCOPIC (MICROSCOPIC)
[2024-03-21 09:53] LABS: Appearance,Urine CLEAR (Clear); Bilirubin,Urine Negative (Negative); Blood, Urine Negative (Negative); Color,Urine YELLOW (Yellow); Glucose,Urine (UA) 2+ (Negative); Ketones,Urine Negative (Negative); Leukocyte Esterase,Urine Negative (Negative); Nitrate,Urine Negative (Negative); Protein,Urine Negative (Negative); Urobilinogen,Urine 0.2 EU/dl (0.2)
[2024-03-21 10:21] LABS: Microalbumin/Creatinine Ratio 19.2
[2024-03-21 10:22] LABS: Creatinine,Urine Random 127 mg/dL (Not Estab.)
[2024-03-21 11:20] LABS: Bacteria,Urine Trace /lpf; Squamous Epithelial Cell,Urine Occasional #/hpf (0-5)
[2024-03-21 11:30] LABS: Chloride 107 mmol/L (98-107)
[2024-03-21 11:31] LABS: Albumin Level 3.9 g/dl (3.5-5.0); Potassium 4.4 mmoL/L (3.5-5.1); Sodium 138 mmol/L (136-145)
[2024-03-21 11:34] LABS: Anion Gap 8.4 mEq/L (5-15); Blood Urea Nitrogen 31 mg/dl (9-20); Calcium 8.1 mg/dl (8.4-10.2); Carbon Dioxide 27 mmol/L (22.0-30.0); Estimated Glomerular Filt Rate 27 ml/min (>60); GFR (African American) 33 ML/MIN (>60); Glucose 173 mg/dl (74-100); Phosphorous 4.2 mg/dl (2.5-4.5)
== END 2024-03-21 23:59 | disposition home or self-care (01) ==
PROVIDERS: PCP Internal Medicine Adolescent Medicine; Visit Provider Nurse Practitioner
DX: N18.32 Chronic kidney disease, stage 3b (principal)
CPT/HCPCS: 36415; 80069; 81001; 82043; 82570

== ENCOUNTER 2024-08-22 09:55 | Outpatient (CLI) | payer MEDICARE, OTHER, SELFPAY ==
[2024-08-22 10:01] LABS: Microscopic, Urine URINE MICROSCOPIC (MICROSCOPIC)
[2024-08-22 10:15] LABS: Hemoglobin 14.2 g/dL (14.1-18.0); Mean Corpuscular HGB Conc 32.3 g/dL (31.8-35.4); Mean Corpuscular Hemoglobin 29.8 pg (27.0-31.2); Mean Corpuscular Volume 92.4 fl (80-94); Platelet Count 245 K/mm3 (142-424); Red Blood Count 4.76 M/mm3 (4.60-6.20); White Blood Count 7.8 K/mm3 (4.8-10.8)
[2024-08-22 10:20] LABS: Appearance,Urine CLEAR (Clear); Bilirubin,Urine Negative (Negative); Blood, Urine Negative (Negative); Color,Urine YELLOW (Yellow); Glucose,Urine (UA) 3+ (Negative); Ketones,Urine Negative (Negative); Leukocyte Esterase,Urine Negative (Negative); Nitrate,Urine Negative (Negative); Protein,Urine Negative (Negative); Specific Gravity, Urine 1.025 (1.005-1.030); Urobilinogen,Urine 0.2 EU/dl (0.2)
[2024-08-22 10:28] LABS: Creatinine,Urine Random 125 mg/dL (Not Estab.)
[2024-08-22 10:30] LABS: Microalbumin/Creatinine Ratio 18.8
[2024-08-22 10:48] LABS: Bacteria,Urine Trace /lpf
[2024-08-22 10:56] LABS: Chloride 104 mmol/L (98-107)
[2024-08-22 10:57] LABS: Albumin Level 3.9 g/dl (3.5-5.0); Potassium 4.2 mmoL/L (3.5-5.1); Sodium 139 mmol/L (136-145)
[2024-08-22 11:00] LABS: Anion Gap 12.2 mEq/L (5-15); Blood Urea Nitrogen 26 mg/dl (9-20); Calcium 8.6 mg/dl (8.4-10.2); Carbon Dioxide 27 mmol/L (22.0-30.0); Estimated Glomerular Filt Rate 32 ml/min (>60); GFR (African American) 39 ML/MIN (>60); Glucose 183 mg/dl (74-100); Phosphorous 3.5 mg/dl (2.5-4.5)
== END 2024-08-22 23:59 | disposition home or self-care (01) ==
LOC: LAB 09:57
PROVIDERS: PCP Internal Medicine Adolescent Medicine; Visit Provider Nurse Practitioner
DX: N18.32 Chronic kidney disease, stage 3b (principal)
CPT/HCPCS: 36415; 80069; 81001; 82043; 82570; 84156; 85027

== ENCOUNTER 2024-10-15 09:32 | Emergency (ER) | payer MEDICARE, OTHER, SELFPAY ==
[2024-10-15] VITALS (9 sets, daily range): BP systolic 118–149; BP diastolic 65–91; PULSE 58–77; RESP 13–18; TEMP 36.6; O2SAT 94–99; BMI 33.2
--- NOTE | 2024-10-15 10:10 | ECG_ITS ---
APPROVED REPORT Exam: Resting ECG HR:71 bpm ECG Measurements Heart Rate 71 AXES NE 160 P 60 QRSd 105 QRS 76 QT 374 T 6 QTc 397 Conclusion SINUS RHYTHM INCOMPLETE RIGHT BUNDLE BRANCH BLOCK [90+ ms QRS DURATION, TERMINAL R IN V1/V2, 40+ ms S IN I/aVL/V4/V5/V6] Electronically signed by : MAX MARTINO, 10/15/2024 15:48:08
--- NOTE | 2024-10-15 10:10 | CT_ITS ---
PROCEDURE INFORMATION: Exam: CTA Neck With Contrast Exam date and time: 10/15/2024 10:51 AM Age: 84 years old Clinical indication: Vertigo; Additional info: Vertigo, stroke eval TECHNIQUE: Imaging protocol: Computed tomographic angiography of the neck with contrast. Exam focused on the cervical segments of the vasculature. 3D rendering (Not supervised by radiologist): MIP and/or 3D reconstructed images were created by the technologist. Radiation optimization: All CT scans at this facility use at least one of these dose optimization techniques: automated exposure control; mA and/or kV adjustment per patient size (includes targeted exams where dose is matched to clinical indication); or iterative reconstruction. Contrast material: ISOVUE 370; Contrast volume: 80 ml; Contrast route: INTRAVENOUS (IV); COMPARISON: CT CERVICAL SPINE WO CON 10/15/2024 10:48 AM FINDINGS: Right common carotid artery: No stenosis. No dissection or occlusion. Right internal carotid artery: Calcified atheromatous plaque is noted in the proximal right internal carotid artery causing less thinning 40% stenosis. Right external carotid artery: No occlusion or stenosis of the origin. Left common carotid artery: No stenosis. No dissection or occlusion. Left internal carotid artery: No stenosis of the extracranial segment. No dissection or occlusion. Left external carotid artery: No occlusion or stenosis of the origin. Right vertebral artery: No stenosis. No dissection or occlusion. Left vertebral artery: No stenosis. No dissection or occlusion. Soft tissues: Normal. No significant soft tissue swelling. Bones/joints: Cervical spondylosis is noted. IMPRESSION: No carotid stenosis. REFERENCES: NASCET CRITERIA. The degree of stenosis in the cervical segment of the internal carotid artery is based on NASCET criteria. Normal is no stenosis. Mild is less than 50% stenosis. Moderate is 50-69% stenosis. Severe is 70% to 99% stenosis. Total occlusion is no detectable patent lumen.
--- NOTE | 2024-10-15 10:10 | CT_ITS ---
PROCEDURE INFORMATION: Exam: CT Head Without Contrast Exam date and time: 10/15/2024 10:45 AM Age: 84 years old Clinical indication: Other: Vertigo; Additional info: Vertigo, stroke eval TECHNIQUE: Imaging protocol: Computed tomography of the head without contrast. Radiation optimization: All CT scans at this facility use at least one of these dose optimization techniques: automated exposure control; mA and/or kV adjustment per patient size (includes targeted exams where dose is matched to clinical indication); or iterative reconstruction. COMPARISON: MR HEAD/BRAIN WO/W CON 02/11/2023 8:59 AM FINDINGS: Brain: There is no mass effect, midline shift, acute hemorrhage, extra-axial fluid collection or acute lobar infarct. Hemispheric white matter hypodensity likely represents chronic microvascular ischemic change. Cerebral ventricles: No ventriculomegaly. Paranasal sinuses: The patient is post maxillary antrostomy and partial internal ethmoidectomy. Mastoid air cells: Visualized mastoid air cells are well aerated. Orbital cavities: The patient is post bilateral cataract surgery. Bones: Unremarkable. No acute fracture. Soft tissues: Unremarkable. IMPRESSION: No acute intracranial process.
--- NOTE | 2024-10-15 10:10 | CT_ITS ---
PROCEDURE INFORMATION: Exam: CTA Head With Contrast, Arteriography Exam date and time: 10/15/2024 10:51 AM Age: 84 years old Clinical indication: Vertigo; Additional info: Vertigo, stroke eval TECHNIQUE: Imaging protocol: Computed tomographic angiography of the head with contrast. Exam focused on the arteries. 3D rendering (Not supervised by radiologist): MIP and/or 3D reconstructed images were created by the technologist. Radiation optimization: All CT scans at this facility use at least one of these dose optimization techniques: automated exposure control; mA and/or kV adjustment per patient size (includes targeted exams where dose is matched to clinical indication); or iterative reconstruction. Contrast material: ISOVUE 370; Contrast volume: 80 ml; Contrast route: INTRAVENOUS (IV); COMPARISON: CT ANGIO HEAD 10/15/2022 2:47 PM FINDINGS: ANTERIOR CIRCULATION: Right internal carotid artery: Intracranial segment is patent with no significant stenosis. No aneurysm. Right middle cerebral artery: No occlusion or significant stenosis. No aneurysm. Right anterior cerebral artery: No occlusion or significant stenosis. No aneurysm. Left internal carotid artery: Intracranial segment is patent with no significant stenosis. No aneurysm. Left middle cerebral artery: No occlusion or significant stenosis. No aneurysm. Left anterior cerebral artery: No occlusion or significant stenosis. No aneurysm. POSTERIOR CIRCULATION: Right vertebral artery: No occlusion or significant stenosis. No aneurysm. Left vertebral artery: No occlusion or significant stenosis. No aneurysm. Basilar artery: No occlusion or significant stenosis. No aneurysm. Right posterior cerebral artery: No occlusion or significant stenosis. No aneurysm. Left posterior cerebral artery: No occlusion or significant stenosis. No aneurysm. Brain: There is extensive hemispheric white matter hypodensity likely representing chronic microvascular ischemic change. Cerebral ventricles: No ventriculomegaly. Orbital cavities: The patient is post bilateral cataract surgery. Bones/joints: Unremarkable. No acute fracture. Soft tissues: Unremarkable. IMPRESSION: No acute intracranial large vessel occlusion.
[2024-10-15] MEDS: FLUTICASONE PROP 50MCG NASAL SPRAY 16GM 1 SPRAY NS (10:23)
[2024-10-15] MEDS: MECLIZINE 25MG TABLET 25 MG PO (10:24)
[2024-10-15 10:26] LABS: Basophils % 0.5 % (0.1-2.0); Eosinophils # 0.3 K/mm3 (0.0-0.4); Eosinophils % 4.1 % (0.1-12.0); Hematocrit 42.9 % (42.0-52.0); Hemoglobin 14.1 g/dL (14.1-18.0); Lymphocytes # 0.7 K/mm3 (0.7-4.5); Lymphocytes % 11.4 % (10-50); Mean Corpuscular HGB Conc 32.9 g/dL (31.8-35.4); Mean Corpuscular Hemoglobin 29.9 pg (27.0-31.2); Mean Corpuscular Volume 91.1 fl (80-94); Mean Platelet Volume 9.9 fl (7.4-10.4); Monocytes # 0.5 K/mm3 (0.1-1.0); Monocytes % 7.7 % (1.7-9.3); Neutrophils # 4.7 K/mm3 (1.8-7.8); Neutrophils % 75.8 % (37.0-80.0); Platelet Count 256 K/mm3 (142-424); Red Blood Count 4.71 M/mm3 (4.60-6.20); Red Cell Distribution Width 13.6 % (11.5-17.5); White Blood Count 6.1 K/mm3 (4.8-10.8)
--- NOTE | 2024-10-15 10:26 | ED_ITS ---
Discharge Plan Disposition Patient Disposition: Home, Self-Care Prescriptions Prescriptions: New meclizine 25 mg tablet 25 mg PO TID PRN (Reason: dizziness) Qty: 20 0RF No Action rosuvastatin 20 mg tablet 20 mg PO DAILY clopidogrel 75 mg tablet 75 mg PO DAILY insulin aspart U-100 [Novolog FlexPen U-100 Insulin] 100 unit/mL (3 mL) insulin pen 10 unit SQ USEASDIRECTD Patient Comments: INJECT 6 UNITS with breakfast AND dinner, AND 8 UNITS with LUNCH; plus correction 140. Max daily DOSE of 50 UNITS insulin glargine [Lantus Solostar U-100 Insulin] 100 unit/mL (3 mL) insulin pen 21 unit SQ DAILY Patient Comments: INJECT 20 UNITS SUBCUTANEOUSLY ONCE DAILY IN THE MORNING vitamin B complex [B Complex-Vitamin B12] Tablet 1 tab PO DAILY mecobalamin (vitamin B12) 1,000 mcg tablet,disintegrating 1,000 mcg PO DAILY Jardiance 10 mg tablet 5 mg PO DAILY Qty: 90 3RF Spiriva Respimat 2.5 mcg/actuation mist 2 inh INHALATION DAILY Probiotic Acidophilus 1.5 mg (250 million cell) capsule 2,000 mmu cells PO DAILY Rx Instructions: give with food (meal/snack) cholecalciferol (vitamin D3) 125 mcg (5,000 unit) capsule 125 mcg PO DAILY PreserVision AREDS 4,296 mcg-226 mg-90 mg capsule 1 cap PO BID pantoprazole 20 mg tablet,delayed release (DR/EC) 20 mg PO DAILY bisoprolol fumarate 5 mg tablet 2.5 mg PO DAILY 90 Days Qty: 45 3RF omeprazole 20 mg capsule,delayed release(DR/EC) 20 mg PO BID Patient Comments: vilazodone 40 mg tablet 40 mg PO DAILY Rx Instructions: must administer with a meal/food Referrals Follow up/Referrals: Nohemi Purdy APRN [Nurse Practitioner] - See instructions Alfredo Aguiar MD [Primary Care Provider] - See instructions Activity Restrictions/Add. Instructions Additional Instructions/Restrictions: You were evaluated in the emergency department today. Please use the Flonase provided to you twice daily in each nostril. Use the prescription for meclizine as needed for vertigo. Follow-up closely with your primary care provider as well as with physical therapy. You may also follow-up with ENT if you continue to have ear issues. Return to the emergency department for new or worsening symptoms Clinical Impressions Clinical Impression: Vertigo, Cerebral microvascular disease, Acute effusion of left ear Instructions Patient Instructions: DI for Vertigo, DI for Benign Paroxysmal Positional Vertigo Print Language Print Language: Sami Discharge ED Provider: Yessy Barraza General Adult HPI General Chief complaint: Dizziness Stated complaint: dizzy spells Time Seen by Provider: 10/15/24 09:35 Mode of Arrival: Ambulatory Source of Information: Patient and Relative Description of Symptoms (Recalled from ER Triage Doc. by RN): pt reports dizzy spells over the last 2 months. pt reports over the last few weeks they have become more frequent and severe in nature. pt states he may be sitting or walking, its not position dependent. pt states it feels like the room in spinning. pt states he feels them come on because his head starts feeling full/swimming. pt denies LOC during the last 3mo. pt states he has a cards appointment this coming Thu. and a PT appointment for inner ear exercises. pt reports numerous falls without injury. History of Present Illness HPI narrative: This patient is an 84-year-old male with a history of type 2 diabetes, CKD, hyperlipidemia, CAD, TIAs presenting to the emergency department for evaluation with concern for dizzy spells. Patient states that over the last 2 to 3 months, has been having episodes where he feels like the room is spinning. He states that it would just hit him suddenly when he is either sitting or walking, and he feels like he immediately loses his balance. He notes that he can feel the episodes coming on because his head starts feeling full/swimming. He has a cardiology follow-up arranged for Thursday and also is going to see PT for inner ear exercises. He states that the symptoms resolved spontaneously and he is not experiencing anything like that right now. Right now, he is feeling fine. No associated visual disturbance, numbness, tingling, unilateral weakness, or other concerns. He also has had no chest pain or shortness of breath. He has had falls without injury. Related Data Home Medications ?Medication ?Instructions ?Recorded ?Confirmed tiotropium bromide 2.5 2 inh inhalation DAILY allergies 09/08/19 09/05/24 mcg/actuation mist for inhalation (Spiriva Respimat) Lactobacillus acidophilus 250 2,000 mmu cells PO DAILY thinner 06/26/20 09/05/24 million cell capsule (Probiotic Acidophilus) rosuvastatin 20 mg tablet 20 mg PO DAILY Cholesterol 06/26/20 09/05/24 omeprazole 20 mg capsule,delayed 20 mg PO BID GERD 10/17/20 09/05/24 release vilazodone 40 mg tablet 40 mg PO DAILY Depression 12/24/21 09/05/24 clopidogrel 75 mg tablet 75 mg PO DAILY Heart Disease 01/01/23 09/05/24 vitamin B complex (B 1 tab PO DAILY 04/13/23 09/05/24 Complex-Vitamin B12 tablet) cholecalciferol (vitamin D3) 125 125 mcg PO DAILY 09/08/23 09/05/24 mcg (5,000 unit) capsule insulin aspart U-100 100 unit/mL 10 unit SQ USEASDIRECTD insulin 09/08/23 09/05/24 (3 mL) subcutaneous pen (Novolog FlexPen U-100 Insulin aspart) mecobalamin (vitamin B12) 1,000 1,000 mcg PO DAILY 03/08/24 09/05/24 mcg disintegrating tablet,sublingual vitamins A,C,M-gepw-ynrqwe 4,296 1 cap PO BID 03/28/24 09/05/24 mcg-226 mg-90 mg capsule (PreserVision AREDS) insulin glargine 100 unit/mL (3 21 unit SQ DAILY Diabetes 04/18/24 09/05/24 mL) subcutaneous pen (Lantus Solostar U-100 Insulin) pantoprazole 20 mg tablet,delayed 20 mg PO DAILY 04/18/24 09/05/24 release Previous Rx's ?Medication ?Instructions ?Recorded empagliflozin 10 mg tablet 5 mg (1/2 x 10 mg) PO DAILY #90 07/18/24 (Jardiance) tabs bisoprolol fumarate 5 mg tablet 2.5 mg (1/2 x 5 mg) PO DAILY 90 09/07/24 days #45 tabs meclizine 25 mg tablet 25 mg PO TID PRN dizziness #20 tabs 10/15/24 Allergies Allergy/AdvReac Type Severity Reaction Status Date / Time No Known Allergies Allergy Verified 10/15/24 10:25 [facility] Disclaimer: The information contained in this section may have been updated after the patient was seen, as this information can be updated by other users. Medical History Type 2 diabetes mellitus with complication, without long-term current use of insulin Gastroesophageal reflux disease HLD (hyperlipidemia) Incomplete RBBB CAD (coronary artery disease) TIA (transient ischemic attack) Headache Coronary artery calcification Atypical angina Callus of foot History of anemia Depression History of gastroesophageal reflux (GERD) Migraine Diabetes mellitus, type 2 Asthma Surgical History History of cholecystectomy History of appendectomy Family History Other No significant family history Social History Smoking Status: Never smoker second hand exposure: No alcohol intake: current alcohol intake frequency: holidays/special occasions only substance use type: denies use current occupational status: retired Travel in the last 8 weeks: Inside the [place] household members: spouse housing: house number of children: 3 current occupational exposures/hazards: No caffeine: Yes Have you lived/traveled outside [place] in past 30 days?: No Contact w/someone who lives/traveled outside US past 30 days?: No Exposure to someone with infectious disease in past 14 days?: No Do you have a fever (greater than 100.4 F or 38 C)?: No Have you tested positive for COVID-19: No Exposed to someone with COVID-19 in past 14 days?: No Do you have a sore throat?: No Do you have a cough?: No Do you have any weakness?: No Do you have any diarrhea?: No Are you experiencing any unusual bleeding?: No Do you have any muscle aches/pain?: No Do you have any abdominal pain?: No Are you experiencing loss of taste or smell?: No Other Medical History Have you received the Flu Vaccine for this season: Yes Have you received the Pneumonia Vaccine: Yes ROS Obtained: Yes All systems reviewed & no additional complaints except as documented Physical Exam General General appearance: alert and in no apparent distress Head Head exam: atraumatic and normocephalic Eye Eye exam: Present normal appearance, PERRL and EOMI ENT ENT exam: Present normal exam, normal oropharynx, mucous membranes moist and normal external ear exam; Absent TM's normal bilaterally (L ear effusion, no erythema or purulence) Neck Neck exam: Present normal inspection, full ROM and trachea midline; Absent tenderness Chest Chest inspection: Present normal inspection and symmetric chest wall rise; Absent tenderness Respiratory Respiratory exam: Present normal lung sounds bilaterally; Absent respiratory distress, wheezes, stridor or accessory muscle use Cardiovascular Cardiovascular exam: Present regular rate and normal rhythm Abdominal Exam Abdominal exam: Present soft; Absent distention, tenderness or guarding Extremities Exam Extremities exam: Present normal inspection, full ROM and normal capillary refill; Absent tenderness or edema Back Exam Back exam: Present normal inspection and full ROM; Absent tenderness Neurological Exam Neurological exam: Present alert, oriented X3, CN II-XII intact and normal gait; Absent motor sensory deficit Psychiatric Psychiatric exam: Present normal affect and normal mood Skin Skin exam: Present warm and dry Medical Decision Making Medical Records Medical records reviewed: Yes I reviewed the patient's medical records. Screening: Per USPSTF and CDC recommendations, given the prevalence of disease in our region, it is our hospital?s policy to screen for HIV and viral Hepatitis for all patients aged 18 and over and those with ongoing risk factors. Kelvin Inquiry Pt receiving controlled substance: No Vital Signs: 10/15/24 09:38 10/15/24 09:47 10/15/24 10:00 Temperature Temperature Source Pulse Rate 74 75 Pulse Rate [Left] Respiratory Rate 13 13 Blood Pressure 149/78 H 123/75 121/68 Blood Pressure [Right Arm] Blood Pressure Mean [Right Arm] Blood Pressure Source [Right Arm] Blood Pressure Position [Right Arm] 02 Sat by Pulse Oximetry 98 98 Oxygen Delivery Method 10/15/24 10:10 10/15/24 10:30 10/15/24 11:01 Temperature 97.9 F Temperature Source Oral Pulse Rate 58 L 72 Pulse Rate [Left] 71 Respiratory Rate 14 15 Blood Pressure 118/66 128/73 Blood Pressure [Right Arm] 149/78 H Blood Pressure Mean [Right Arm] 101 Blood Pressure Source [Right Arm] Automatic Cuff Blood Pressure Position [Right Arm] Sitting 02 Sat by Pulse Oximetry 99 94 L 96 Oxygen Delivery Method Room Air Room Air Room Air 10/15/24 11:30 10/15/24 12:00 10/15/24 12:48 Temperature 97.9 F Temperature Source Oral Pulse Rate 59 L 77 77 Pulse Rate [Left] Respiratory Rate 16 18 Blood Pressure 126/65 121/68 137/91 H Blood Pressure [Right Arm] Blood Pressure Mean [Right Arm] Blood Pressure Source [Right Arm] Blood Pressure Position [Right Arm] 02 Sat by Pulse Oximetry 99 97 Oxygen Delivery Method Room Air Room Air Lab Data Lab results reviewed: Yes I reviewed the patient's lab results. Lab Results 10/15/24 09:55: WBC 6.1, RBC 4.71, Hgb 14.1, Hct 42.9, MCV 91.1, MCH 29.9, MCHC 32.9, RDW 13.6, Plt Count 256, MPV 9.9, Neut % (Auto) 75.8, Lymph % (Auto) 11.4, [place] % (Auto) 7.7, Eos % (Auto) 4.1, Baso % (Auto) 0.5, Neut # (Auto) 4.7, Lymph # (Auto) 0.7, [place] # (Auto) 0.5, Eos # (Auto) 0.3, Baso # (Auto) 0.0, PT 10.6, INR 0.94, APTT 25.6, Sodium 135 L, Potassium 4.5, Chloride 102, Carbon Dioxide 26, Anion Gap 11.5, BUN 27 H, Creatinine 2.10 H, Estimated Creat Clear 40, E stimated GFR 30 L, Est GFR ( Amer) 36 L, Glucose 273 H, Calcium 8.6, Total Bilirubin 0.8, AST 29, ALT 23, Alkaline Phosphatase 75, Troponin I < 0.01, Total Protein 6.6, Albumin 4.2, Globulin 2.4, Albumin/Globulin Ratio 1.8, T riglycerides 192 H, Cholesterol 149, LDL Cholesterol Direct 84.99 L, VLDL Cholesterol 38, HDL Cholesterol 30 L, Cholesterol/HDL Ratio 5.0 H, Plasma/Serum Alcohol < 10, HCV Ab MARLA w/Rflx PCR Qn Negative, HIV Ag/Ab Combo Qual Negative 10/15/24 11:39: Urine Color Yellow, Urine Appearance Clear, Urine pH 6.0, Ur Specific [place] 1.010, Urine Protein Negative, Urine Glucose (UA) 3+, Urine Ketones Negative, Urine Blood Negative, Urine Nitrate Negative, Urine Bilirubin Negative, Urine Urobilinogen 0.2, Ur Leukocyte Esterase Negative, Urine RBC None, Urine WBC None, Ur Squamous Epith Cells Occasional, Urine Bacteria None, Urine Opiates Screen Negative, Urine Methadone Screen Negative, Ur Barbituates Screen Negative, Ur Phencyclidine Scrn Negative, Ur Amphetamines Screen Negative, U Benzodiazepines Scrn Negative, Urine Cocaine Screen Negative, U Marijuana (THC) Screen Negative 10/15/24 09:55 10/15/24 09:55 Orders (Tests/Meds): ED MEDICATIONS Discontinued Medications Generic Name Dose Route Start Last Admin Trade Name Freq PRN Reason Stop Dose Admin Fluticasone Propionate 1 spray 10/15/24 10:12 10/15/24 10:23 Fluticasone Prop 50mcg Nasal [place] 16gm NS 10/15/24 10:13 1 spray ONCE ONE Administration Iopamidol 80 ml 10/15/24 10:58 10/15/24 10:59 Iopamidol-370 (76%);100ml Bottle IV 10/15/24 10:59 80 ml ONCE ONE Administration Meclizine HCl 25 mg 10/15/24 10:11 10/15/24 10:24 Meclizine 25mg Tablet PO 10/15/24 10:12 25 mg ONCE ONE Administration Sodium Chloride 10 ml 10/15/24 10:10 Sodium Chloride 0.9% 10ml Flush Syringe IV 11/14/24 10:09 NEEDED PRN Maintain IV Site Sodium Chloride 500 ml 10/15/24 10:36 10/15/24 10:37 Sodium Chloride 0.9% 500ml Bag IV 10/15/24 10:37 500 ml ONCE ONE Administration Sodium Chloride 50 ml 10/15/24 10:58 10/15/24 10:59 0.9 % Sodium Chloride 50 Ml Vial IV 10/15/24 10:59 50 ml ONCE ONE Administration Sodium Chloride 10 ml 10/15/24 10:58 10/15/24 10:59 Sodium Chloride 0.9% 10ml Syr (Rad Only) IV 11/14/24 10:57 10 ml NEEDED PRN Administration Maintain IV Site ORDERS Category Date Time Status CT angio head Stat Cat Scan 10/15/24 10:[address] angio neck Stat Cat Scan 10/15/24 10:[address] cervical spine wo con Stat Cat Scan 10/15/24 10:[address] head/brain wo con Stat Cat Scan 10/15/24 10:10 Completed Activated Partial Thrombo Time Stat Lab 10/15/24 09:55 Completed Complete Blood Count Auto Diff Stat Lab 10/15/24 09:55 Completed Comprehensive Metabolic Panel Stat Lab 10/15/24 09:55 Completed Drug Screen,Urine Stat Lab 10/15/24 11:39 Completed Ethyl Alcohol Stat Lab 10/15/24 09:55 Completed HIV Combo Stat Lab 10/15/24 09:55 Completed Hepatitis C Ab Qual. W/ RFX Stat Lab 10/15/24 09:55 Completed Lipid Panel Stat Lab 10/15/24 09:55 Completed Prothrombin Time INR Stat Lab 10/15/24 09:55 Completed Troponin I Q3H Lab 10/15/24 13:15 Ordered Troponin I Q3H Lab 10/15/24 16:15 Ordered Troponin I Stat Lab 10/15/24 09:55 Completed Urinalysis and Microscopic Stat Lab 10/15/24 11:39 Completed ECG Data Tracing #1: I reviewed this ECG and interpreted as documented below: Normal sinus rhythm with a ventricular to 71 bpm. Incomplete right bundle branch block. No acute ST changes concerning for ischemia. Normal axis ECG initial impression date: 10/15/24 ECG initial impression time: 09:39 Medical Decision Narrative: In summary, this patient is a 84-year-old male presenting to the Emergency Department for evaluation of dizzy spells that he describes as the room spinning. Spells resolve spontaneously and he is not experiencing symptoms at this time. They have been ongoing for the last several months. Differential diagnoses considered include but are not limited to BPPV, M?ni?re's disease, labyrinthitis, central vertigo. Ruling out the most morbid conditions drove assessment. It should be noted patient's history includes hyperlipidemia, diabetes, CAD, TIAs, CKD which may or may not be at goal therapy. This complicates all aspects of care by increasing patient's risk for morbidity. I reviewed patient's past medical records and noted prior cardiology/patient clinical evaluations with pacemaker assessment 09/22/2024. On exam, the patient is lying in bed in no acute distress. He is neurologically intact without focal deficit. He is not currently experiencing symptoms. Vitals are reassuring on cardiac telemetry. Given the falls given that he is neurologically intact without focal deficit and has no symptoms currently, as they resolve spontaneously, I feel he likely has a peripheral/benign cause of vertigo as opposed to central vertigo, but he does have multiple risk factors for stroke. He also has a left ear effusion which also could be contributing. Workup included lab evaluation to evaluate for infectious, metabolic, cardiac derangements as well as CT head, CT angiogram head and neck, and CT C-spine. Patient was given oral meclizine and intranasal Flonase to see if this helps. EKG obtained is reassuring. I independently interpreted CT scans prior to the radiologist read and noted no obvious intracranial hemorrhage, large space- occupying lesion, or vascular occlusion. Please see their read for final interpretation. They do note microvascular changes. Labs were obtained that demonstrated reassuring CBC, reassuring chemistry with kidney function that is around his baseline, negative troponin, no significant electrolyte derangements. Urine is not concerning for infection.. On reassessment, patient is resting comfortably with no concerns or complaints. He is able to get up to the bathroom without symptoms. NIH stroke scale is 0, he is neurologically intact. Ultimately at this time I feel he likely has benign peripheral vertigo and is appropriate for discharge with plan for continued outpatient follow-up with primary care, PT, and prescription for meclizine. He was provided with Flonase here. He was given very strict return precautions and was discharged in stable condition after all questions were answered. Critical Care Critical Care Time Critical Care Time: No
[2024-10-15 10:27] LABS: Albumin Level 4.2 g/dl (3.5-5.0); Chloride 102 mmol/L (98-107); Potassium 4.5 mmoL/L (3.5-5.1); Sodium 135 mmol/L (136-145)
[2024-10-15 10:29] LABS: Blood Urea Nitrogen 27 mg/dl (9-20); Creatinine Clearance Estimated 40 mL/min (50-200); Estimated Glomerular Filt Rate 30 ml/min (>60); GFR (African American) 36 ML/MIN (>60)
[2024-10-15 10:30] LABS: Alanine Aminotransferase 23 U/L (12-78); Albumin/Globulin Ratio 1.8 (1.1-1.8); Alkaline Phosphatase 75 U/L (38-126); Anion Gap 11.5 mEq/L (5-15); Aspartate Amino Transferase 29 U/L (17-59); Bilirubin,Total 0.8 mg/dl (0.2-1.3); Calcium 8.6 mg/dl (8.4-10.2); Carbon Dioxide 26 mmol/L (22.0-30.0); Cholesterol 149 mg/dl (140-200); Globulin 2.4 g/dL (1.3-3.2); Glucose 273 mg/dl (74-100); HDL Cholesterol 30 mg/dl (40-60); Total Protein,Serum 6.6 g/dl (6.3-8.2); Triglycerides 192 mg/dl (30-150); VLDL Cholesterol 38 mg/dL (0-40)
[2024-10-15 10:33] LABS: Ethyl Alcohol < 10 mg/dl (0-10)
--- NOTE | 2024-10-15 10:34 | CT_ITS ---
PROCEDURE INFORMATION: Exam: CT Cervical Spine Without Contrast Exam date and time: 10/15/2024 10:48 AM Age: 84 years old Clinical indication: Injury or trauma; Fall; Blunt trauma; Additional info: Falls TECHNIQUE: Imaging protocol: Computed tomography of the cervical spine without contrast. Radiation optimization: All CT scans at this facility use at least one of these dose optimization techniques: automated exposure control; mA and/or kV adjustment per patient size (includes targeted exams where dose is matched to clinical indication); or iterative reconstruction. COMPARISON: CT HEAD/BRAIN WO CON 10/15/2024 10:45 AM FINDINGS: Bones: There is no evidence for acute cervical fracture or subluxation. Spondylosis is noted with disc osteophyte, uncovertebral spurring and facet arthropathy most notably at C5-C6 and C6-C7. Lungs: Lung apices are normal. Soft tissues: Unremarkable. IMPRESSION: No evidence for acute cervical fracture.
[2024-10-15 10:35] LABS: Activated Partial Thrombo Time 25.6 seconds (22.8-30.6); INR 0.94 (0.9-1.1); Prothrombin Time 10.6 seconds (10.1-12.5)
[2024-10-15] MEDS: SODIUM CHLORIDE 0.9% 500ML BAG 500 ML IV (10:37)
[2024-10-15 10:41] LABS: Direct LDL Cholesterol 84.99 mg/dL (100-129)
[2024-10-15] MEDS: IOPAMIDOL-370 (76%);100ML BOTTLE 80 ML IV (10:59)
[2024-10-15] MEDS: 0.9 % SODIUM CHLORIDE 50 ML VIAL IV (10:59)
[2024-10-15] MEDS: SODIUM CHLORIDE 0.9% 10ML SYR (RAD ONLY) 10 ML IV (10:59)
[2024-10-15 11:07] LABS: Troponin I < 0.01 ng/ml (0.00-0.034)
--- NOTE | 2024-10-15 11:35 | PC.NURSE ---
I rounded on the pt and collected a UA. pt states that his head feels like its swimming again. no other new complaints. no needs voiced. call jean baptiste in reach. I notified , no new orders received.
[2024-10-15 11:45] LABS: Microscopic, Urine URINE MICROSCOPIC (MICROSCOPIC)
[2024-10-15 12:17] LABS: Amphetamine/Metha Screen,Urine Negative ng/ml (<1000)
[2024-10-15 12:18] LABS: Barbiturates Screen,Urine Negative ng/ml (<200)
[2024-10-15 12:19] LABS: Benzodiazepines Screen,Urine Negative ng/ml (<200); Cannabinoid Screen,Urine Negative ng/ml (<50)
[2024-10-15 12:20] LABS: Cocaine Screen,Urine Negative ng/ml (<300)
[2024-10-15 12:21] LABS: Methadone Screen,Urine Negative ng/ml (<300)
[2024-10-15 12:22] LABS: Opiate Screen,Urine Negative ng/ml (<300)
[2024-10-15 12:23] LABS: Phencyclidine Screen,Urine Negative ng/ml (<25)
[2024-10-15 12:27] LABS: HIV Combo NEGATIVE (Negative)
[2024-10-15 12:35] LABS: Hepatitis C Ab Qual. W/ RFX NEGATIVE (Negative)
[2024-10-15 12:36] LABS: Appearance,Urine Clear (Clear); Bilirubin,Urine Negative (Negative); Blood, Urine Negative (Negative); Color,Urine Yellow (Yellow); Glucose,Urine (UA) 3+ (Negative); Ketones,Urine Negative (Negative); Leukocyte Esterase,Urine Negative (Negative); Nitrate,Urine Negative (Negative); Protein,Urine Negative (Negative); Urobilinogen,Urine 0.2 EU/dl (0.2)
[2024-10-15 12:37] LABS: Squamous Epithelial Cell,Urine Occasional #/hpf (0-5)
== END 2024-10-15 12:49 | disposition home or self-care (01) ==
PROVIDERS: Emergency Provider Emergency Medicine; PCP Internal Medicine Adolescent Medicine
DX: H65.192 Other acute nonsuppurative otitis media, left ear (principal); I67.89 Other cerebrovascular disease; R42 Dizziness and giddiness
CPT/HCPCS: 70450; 70496; 70498; 72125; 80053; 80061; 80307; 80320; 81001; 84484; 85025; 85610; 85730; 86803; 87389; 93005; 99285; Q9967

== ENCOUNTER 2024-10-17 10:03 | Outpatient (RCR) | payer MEDICARE, OTHER, SELFPAY ==
--- NOTE | 2024-10-17 16:48 | HMH.PTOPEV ---
PT Outpatient Evaluation Rehab PT Outpatient Evaluation Start: 10/17/24 10:11 Freq: Status: Active Protocol: Document 10/17/24 16:15 PHORNE (Rec: 10/17/24 16:47 PHORNE [id number]) E-signed By Darryn Chinchilla, PT Outpatient Therapy Subjective History Subjective History This is the initial PT eval for Eric Vázquez, 84 yowm who presents with c/o intermittent dizziness and vertigo x ~ 3-4 mos with insidious onset of symptoms. He reports no specific position which exacerbates his symptoms and they appear to be very much random. He reports symptoms last ~ 10 mins and are usually associated with N/V. He reports 2 falls in the past 6 mos without significant injury . He has PMH including HTN controlled by medications ( usually runs low per daughter) , seasonal allergies, implanted loop recorder, TIA, kidney insufficiency, fluid in the L ear recently. Chief Complaint Other Balance Eval Hx of Falls Hx Falls Yes Number in last 6 months 2 Nystagmus Nystagmus Presence None Timed Up and Go Test 1. Is the Timed Up and Go test result > no or = to 12 seconds? 3. Is the Timed Up and Go Test result < yes 12 seconds? Oculomotor Gaze Oculomotor Gaze Nml: Vergence Smooth Pursuit Saccades VOR Cancellation Cover/Uncover Cross Cover Tinetti Sitting Balance Sitting Balance Steady, safe Arising from Chair Ability to Arise Able, w/o using arms Attempts to Arise Arises on 1st attempt Standing Balance Immediate Standing Balance Steady w/o support Standing Balance Narrow stance w/o support Nudged Response Steady Standing with Eyes Closed Unsteady Turning Step Pattern Turning 360 Degrees Continuous steps Stability Turning 360 Degrees Steady Sitting Down Sitting Down Safe, steady Gait and Step Initiation of Gait No hesitancy Right Foot Step Length Does pass stance foot Right Foot Step Height Completely clears floor Left Foot Step Length Does pass stance foot Left Foot Step Height Does not clear floor Step Description Step Symmetry Step length appears equal Step Continuity Steps appear continuous Gait Description Path Description Mild/moderate deviation Trunk Description No sway Walking Stance Heels together Scoring and Interpretation Tinetti Composite Score (points) 25 Interpretation of Scores Low risk for falls (>24) Miscellaneous Dx PT Eval Objective Objective Pt had no nystagmus or symptoms noted during vito- hallpike testing and all occulomotor testing performed this date. He does report taking meclizine this am. Outpatient Therapy Assessment Impairments Problems/Impairmments Impaired Balance,Impaired Self Care/Self Management Prognosis Rehab Potential Innapropriate for Skilled Therapy Comment Currently unable to reproduce any of his symptoms during initial evaluation. He is scheduled for further work-up with cardiology and ENT in the next few weeks. Clinical Impression Consistent with Diagnosis Yes Outpatient Therapy Plan of Care Treatment Plan May Include Eval/Re-Eval Yes Frequency Times per week 0 Addendums This patient is a candidate for social No or vocational rehab? Patient/Guardian verbally acknowledges Yes understanding of treatment program and consents to further treatment? Patient/Guardian verbally acknowledges Yes understanding of diagnosis, prognosis and goals for treatment? Eval Complexity PT Charges 86499 - High Complexity Shoulder/Elbow Eval Shoulder Objective Measurements Elbow Objective Measurements PHYSICIAN CERTIFICATION: I certify the specified therapy services for Eric Vázquez JR are required, authorized, and reviewed every 30 days.
== END 2024-10-17 23:59 | disposition home or self-care (01) ==
LOC: PT 10:03
PROVIDERS: PCP Internal Medicine; Visit Provider Nurse Practitioner Family
DX: R42 Dizziness and giddiness (principal)
CPT/HCPCS: 97163

== ENCOUNTER 2024-10-27 12:45 | Outpatient (CLI) | payer MEDICARE, OTHER, SELFPAY ==
--- NOTE | 2024-10-27 12:48 | MR_ITS ---
FINAL REPORT CLINICAL HISTORY: VERTIGO/HX TIA DIZZINESS X 3-4 WEEKS NO TRAUMA COMPARISON: CT of the head dated 10/15/2024, MRI of the head dated 02/11/2023 FINDINGS: Multi planar MR imaging was obtained through the brain without contrast. The midline structures appear intact. There is no evidence of Chiari malformation. On T2 and flair axial images the brain parenchyma demonstrates extensive confluent signal in the periventricular white matter, consistent with chronic microvascular ischemic change. Moderate age-appropriate global atrophy is present. On diffusion-weighted images there is no evidence of restricted diffusion. The visualized paranasal sinuses demonstrate normal signal voids. The seventh and eighth nerve root complexes are intact. IMPRESSION: Moderate age-appropriate global atrophy, with moderate changes of chronic microvascular ischemic change. The overall appearance is essentially unchanged since the prior MR of 02/11/2023. Reviewed, Interpreted and Dictated by Kilo Saucedo MD Transcribed by Afshan Self Authenticated and [facility]
== END 2024-10-27 23:59 | disposition home or self-care (01) ==
LOC: RAD 12:46
PROVIDERS: PCP Internal Medicine Adolescent Medicine; Visit Provider Internal Medicine Adolescent Medicine
DX: R42 Dizziness and giddiness (principal); Z86.73 Personal history of transient ischemic attack (TIA), and cerebral infarction without residual deficits
CPT/HCPCS: 70551

== ENCOUNTER 2024-11-17 13:41 | Outpatient (CLI) | payer MEDICARE, OTHER, SELFPAY ==
--- NOTE | 2024-11-17 13:45 | XR_ITS ---
FINAL REPORT CLINICAL HISTORY: Foot Pain (Emp on Great Toe) COMPARISON: 01/17/2020 FINDINGS: LEFT FOOT Three views were obtained. There is no fracture or dislocation. There are moderate hypertrophic changes of the first metatarsal phalangeal joint and interphalangeal joint. No soft tissue abnormality is identified. IMPRESSION: Degenerative changes as above, similar to prior. Reviewed, Interpreted and Dictated by Kilo Saucedo MD Transcribed by Kari Carter Authenticated and . [facility]
== END 2024-11-17 23:59 | disposition home or self-care (01) ==
LOC: RAD 13:42
PROVIDERS: PCP Internal Medicine Adolescent Medicine; Visit Provider Nurse Practitioner
DX: M79.672 Pain in left foot (principal)
CPT/HCPCS: 73630

== ENCOUNTER 2024-11-25 21:21 | Emergency (ER) | payer MEDICARE, OTHER, SELFPAY ==
[2024-11-25 21:33] VITALS: BP 140/87; PULSE 95; RESP 18; TEMP 36.6; O2SAT 98; BMI 32.3
--- NOTE | 2024-11-25 21:50 | XR_ITS ---
PROCEDURE INFORMATION: Exam: XR Left Forearm Exam date and time: 11/25/2024 9:59 PM Age: 84 years old Clinical indication: Injury or trauma; Fall; Blunt trauma (contusions or hematomas); Arm, lower; Left; Additional info: Fall >65, L hand/wrist injury TECHNIQUE: Imaging protocol: Radiologic exam of the left forearm. Views: 2 views. COMPARISON: CR XR HAND LT MIN 3V 11/25/2024 9:59 PM FINDINGS: Bones/joints: No acute fracture. Old posttraumatic ossicle abutting the distal ulna. Soft tissues: Normal. IMPRESSION: 1. No evidence for acute fracture. 2. Old posttraumatic ossicle abutting the distal ulna.
--- NOTE | 2024-11-25 21:50 | CT_ITS ---
PROCEDURE INFORMATION: Exam: CT Cervical Spine Without Contrast Exam date and time: 11/25/2024 10:09 PM Age: 84 years old Clinical indication: Injury or trauma; Fall; Blunt trauma; Additional info: Fall >65, L hand/wrist injury TECHNIQUE: Imaging protocol: Computed tomography of the cervical spine without contrast. Radiation optimization: All CT scans at this facility use at least one of these dose optimization techniques: automated exposure control; mA and/or kV adjustment per patient size (includes targeted exams where dose is matched to clinical indication); or iterative reconstruction. COMPARISON: CT CERVICAL SPINE WO CON 10/15/2024 10:48 AM FINDINGS: Bones/joints: No acute fracture. Normal alignment. C2-C3: No significant disc bulge or herniation. No severe spinal canal stenosis. No significant neural foraminal narrowing. C3-C4: No significant disc bulge or herniation. No severe spinal canal stenosis. No significant neural foraminal narrowing. C4-C5: No significant disc bulge or herniation. No severe spinal canal stenosis. No significant neural foraminal narrowing. C5-C6: Degenerative disc height loss with small disc osteophyte complex without stenosis or impingement. C6-C7: Degenerative disc height loss with small disc osteophyte complex without stenosis or impingement. C7-T1: Degenerative disc height loss with small disc osteophyte complex without stenosis or impingement. Lungs: Lung apices are normal. Soft tissues: Unremarkable. IMPRESSION: No acute findings.
--- NOTE | 2024-11-25 21:50 | XR_ITS ---
PROCEDURE INFORMATION: Exam: XR Left Wrist Exam date and time: 11/25/2024 9:59 PM Age: 84 years old Clinical indication: Injury or trauma; Fall; Blunt trauma (contusions or hematomas); Wrist; Left; Additional info: Fall >65, L hand/wrist injury TECHNIQUE: Imaging protocol: Radiologic exam of the left wrist. Views: 3 or more views. 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 There is dense sclerosis of the proximal pole consistent with avascular necrosis. 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 Severe osteoarthritis of the 1st carpometacarpal joint. No acute fracture. Soft tissues: Normal. IMPRESSION: 1. 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 There is dense sclerosis of the proximal pole consistent with avascular necrosis. 2. No evidence for acute fracture. 3. 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 4. Severe osteoarthritis of the 1st carpometacarpal joint. 5. Early changes of SLAC wrist noted.
--- NOTE | 2024-11-25 21:50 | XR_ITS ---
PROCEDURE INFORMATION: Exam: XR Left Hand Exam date and time: 11/25/2024 9:59 PM Age: 84 years old Clinical indication: Injury or trauma; Fall; Blunt trauma (contusions or hematomas); Hand; Left; Additional info: Fall >65, L hand/wrist injury TECHNIQUE: Imaging protocol: Radiologic exam of the left hand. Views: 3 or more views. COMPARISON: CR XR HAND LT MIN 3V 11/25/2024 9:59 PM FINDINGS: Bones/joints: No acute fracture. Abnormalities on a chronic basis of the left wrist-see left wrist x-ray report. Soft tissues: Normal. IMPRESSION: No acute fracture. Abnormalities on a chronic basis of the left wrist-see left wrist x-ray report.
--- NOTE | 2024-11-25 21:50 | CT_ITS ---
PROCEDURE INFORMATION: Exam: CT Head Without Contrast Exam date and time: 11/25/2024 10:07 PM Age: 84 years old Clinical indication: Injury or trauma; Fall; Blunt trauma (contusions or hematomas); Additional info: Fall >65, L hand/wrist injury TECHNIQUE: Imaging protocol: Computed tomography of the head without contrast. Radiation optimization: All CT scans at this facility use at least one of these dose optimization techniques: automated exposure control; mA and/or kV adjustment per patient size (includes targeted exams where dose is matched to clinical indication); or iterative reconstruction. COMPARISON: MR HEAD/BRAIN WO CON 10/27/2024 1:20 PM FINDINGS: Brain: There is marked diffuse cerebral atrophy present. Cerebral ventricles: No ventriculomegaly. Paranasal sinuses: Visualized sinuses are unremarkable. No fluid levels. Mastoid air cells: Visualized mastoid air cells are well aerated. Bones: Unremarkable. No acute fracture. Soft tissues: Unremarkable. IMPRESSION: No acute intracranial abnormality.
[2024-11-25 22:00] VITALS: BP 150/83; PULSE 63; O2SAT 98
[2024-11-25] MEDS: HYDROCODONE/APAP 5/325 MG TABLET 1 TAB PO (22:13)
[2024-11-25 22:31] VITALS: BP 136/71; PULSE 59; O2SAT 95
--- NOTE | 2024-11-25 22:32 | ED_ITS ---
Discharge Plan Disposition Patient Disposition: Home, Self-Care Condition: Good Prescriptions Prescriptions: No Action rosuvastatin 20 mg tablet 20 mg PO DAILY clopidogrel 75 mg tablet 75 mg PO DAILY insulin aspart U-100 [Novolog FlexPen U-100 Insulin] 100 unit/mL (3 mL) insulin pen 10 unit SQ USEASDIRECTD Patient Comments: INJECT 6 UNITS with breakfast AND dinner, AND 8 UNITS with LUNCH; plus correction 140. Max daily DOSE of 50 UNITS insulin glargine [Lantus Solostar U-100 Insulin] 100 unit/mL (3 mL) insulin pen 21 unit SQ DAILY Patient Comments: INJECT 20 UNITS SUBCUTANEOUSLY ONCE DAILY IN THE MORNING vitamin B complex [B Complex-Vitamin B12] Tablet 1 tab PO DAILY mecobalamin (vitamin B12) 1,000 mcg tablet,disintegrating 1,000 mcg PO DAILY Jardiance 10 mg tablet 5 mg PO DAILY Qty: 90 3RF Spiriva Respimat 2.5 mcg/actuation mist 2 inh INHALATION DAILY Probiotic Acidophilus 1.5 mg (250 million cell) capsule 2,000 mmu cells PO DAILY Rx Instructions: give with food (meal/snack) cholecalciferol (vitamin D3) 125 mcg (5,000 unit) capsule 125 mcg PO DAILY PreserVision AREDS 4,296 mcg-226 mg-90 mg capsule 1 cap PO BID Flonase Sensimist 27.5 mcg/actuation spray,suspension 1 spray intranasal DAILY Rx Instructions: into each nostril doxycycline hyclate 100 mg capsule 100 mg PO BID 14 Days Qty: 28 0RF mupirocin 2 % ointment 1 applic topical BID 14 Days Qty: 22 1RF bisoprolol fumarate 5 mg tablet 2.5 mg PO DAILY 90 Days Qty: 45 3RF omeprazole 20 mg capsule,delayed release(DR/EC) 20 mg PO BID Patient Comments: vilazodone 40 mg tablet 40 mg PO DAILY Rx Instructions: must administer with a meal/food meclizine 25 mg tablet 25 mg PO TID PRN (Reason: dizziness) Qty: 20 0RF Referrals Follow up/Referrals: Huy Coello DO [Staff Physician] - See instructions Alfredo Aguiar MD [Primary Care Provider] - See instructions Activity Restrictions/Add. Instructions Additional Instructions/Restrictions: You were evaluated in the emergency department today. Please follow-up very closely with your primary care provider as well as with orthopedics for repeat assessment. Return to the emergency department for new or worsening symptoms. Clinical Impressions Clinical Impression: Fall, Left wrist pain Instructions Patient Instructions: How to Prevent Falls, DI for Wrist Pain Print Language Print Language: Welsh Discharge ED Provider: Yessy Barraza General Adult HPI General Chief complaint: Fall Stated complaint: AO 11/25/24 1700 Injury left wrist Time Seen by Provider: 11/25/24 21:28 Mode of Arrival: Ambulatory Source of Information: Patient and Relative Description of Symptoms (Recalled from ER Triage Doc. by RN): Pt presents s/p glf that occurred today while walking injuring his left wrist. Pt does take blood thinners but denies hitting head. Family at the bedside reports that she received a phone call earlier in the day from assisted living stating that he had fallen there, but patient is reporting that he didn't fall till 1730. Family is concerned about some recent memory loss with reports of alcohol use today. Family reports recent loss of spouse that has set off recent events. History of Present Illness HPI narrative: This patient is an 84-year-old male with a history of CKD, CAD on aspirin and Plavix, type 2 diabetes, prior TIA, hypertension, hyperlipidemia, and GERD presenting to the emergency department for evaluation with concern for left wrist pain after a mechanical ground-level fall. Patient states that he was walking around 2:30 PM when he started to fall over the side, tried to catch himself with his left arm but fell anyway. He did not hit his head or lose consciousness. His only pain is at his left wrist. He states that he felt like his right wrist bent backwards with the fall. He has a history of prior injury to that wrist a very long time ago. No other concerns or complaints noted at this time. Related Data Home Medications ?Medication ?Instructions ?Recorded ?Confirmed tiotropium bromide 2.5 2 inh inhalation DAILY allergies 09/08/19 11/17/24 mcg/actuation mist for inhalation (Spiriva Respimat) Lactobacillus acidophilus 250 2,000 mmu cells PO DAILY thinner 06/26/20 11/17/24 million cell capsule (Probiotic Acidophilus) rosuvastatin 20 mg tablet 20 mg PO DAILY Cholesterol 06/26/20 11/17/24 omeprazole 20 mg capsule,delayed 20 mg PO BID GERD 10/17/20 11/17/24 release vilazodone 40 mg tablet 40 mg PO DAILY Depression 12/24/21 11/17/24 clopidogrel 75 mg tablet 75 mg PO DAILY Heart Disease 01/01/23 11/17/24 vitamin B complex (B 1 tab PO DAILY 04/13/23 11/17/24 Complex-Vitamin B12 tablet) cholecalciferol (vitamin D3) 125 125 mcg PO DAILY 09/08/23 11/17/24 mcg (5,000 unit) capsule insulin aspart U-100 100 unit/mL 10 unit SQ USEASDIRECTD insulin 09/08/23 11/17/24 (3 mL) subcutaneous pen (Novolog FlexPen U-100 Insulin aspart) mecobalamin (vitamin B12) 1,000 1,000 mcg PO DAILY 03/08/24 11/17/24 mcg disintegrating tablet,sublingual vitamins A,C,A-tfqt-ekaern 4,296 1 cap PO BID 03/28/24 11/17/24 mcg-226 mg-90 mg capsule (PreserVision AREDS) insulin glargine 100 unit/mL (3 21 unit SQ DAILY Diabetes 04/18/24 11/17/24 mL) subcutaneous pen (Lantus Solostar U-100 Insulin) fluticasone furoate 27.5 1 spray intranasal DAILY 11/14/24 11/17/24 mcg/actuation nasal spray,suspension (Flonase Sensimist) Previous Rx's ?Medication ?Instructions ?Recorded empagliflozin 10 mg tablet 5 mg (1/2 x 10 mg) PO DAILY #90 07/18/24 (Jardiance) tabs bisoprolol fumarate 5 mg tablet 2.5 mg (1/2 x 5 mg) PO DAILY 09/07/24 days #45 tabs meclizine 25 mg tablet 25 mg PO TID PRN dizziness #20 tabs 10/15/24 doxycycline hyclate 100 mg capsule 100 mg PO BID infection 14 days 11/17/24 #28 caps mupirocin 2 % topical ointment 1 applic topical BID infection 14 11/17/24 days #22 grams Allergies Allergy/AdvReac Type Severity Reaction Status Date / Time No Known Allergies Allergy Verified 11/17/24 14:30 [facility] Disclaimer: The information contained in this section may have been updated after the patient was seen, as this information can be updated by other users. Medical History Type 2 diabetes mellitus with complication, without long-term current use of insulin Gastroesophageal reflux disease HLD (hyperlipidemia) Incomplete RBBB CAD (coronary artery disease) TIA (transient ischemic attack) Headache Coronary artery calcification Atypical angina Callus of foot History of anemia Depression History of gastroesophageal reflux (GERD) Migraine Diabetes mellitus, type 2 Asthma Surgical History History of cholecystectomy History of appendectomy Family History Other No significant family history Social History Smoking Status: Never smoker second hand exposure: No alcohol intake: current alcohol intake frequency: holidays/special occasions only substance use type: denies use current occupational status: retired Travel in the last 8 weeks: Inside the [place] household members: spouse housing: house number of children: 3 current occupational exposures/hazards: No caffeine: Yes Have you lived/traveled outside [place] in past 30 days?: No Contact w/someone who lives/traveled outside US past 30 days?: No Exposure to someone with infectious disease in past 14 days?: No Do you have a fever (greater than 100.4 F or 38 C)?: No Have you tested positive for COVID-19: No Exposed to someone with COVID-19 in past 14 days?: No Do you have a sore throat?: No Do you have a cough?: No Do you have any weakness?: No Do you have any diarrhea?: No Are you experiencing any unusual bleeding?: No Do you have any muscle aches/pain?: No Do you have any abdominal pain?: No Are you experiencing loss of taste or smell?: No Other Medical History Have you received the Flu Vaccine for this season: Yes Have you received the Pneumonia Vaccine: Yes ROS Obtained: Yes All systems reviewed & no additional complaints except as documented Physical Exam General General appearance: alert and in no apparent distress Head Head exam: atraumatic and normocephalic Eye Eye exam: Present normal appearance, PERRL and EOMI ENT ENT exam: Present normal exam, normal oropharynx, mucous membranes moist and normal external ear exam Neck Neck exam: Present normal inspection, full ROM and trachea midline; Absent tenderness Chest Chest inspection: Present normal inspection and symmetric chest wall rise; Absent tenderness Respiratory Respiratory exam: Present normal lung sounds bilaterally; Absent respiratory distress, wheezes, stridor or accessory muscle use Cardiovascular Cardiovascular exam: Present regular rate and normal rhythm Abdominal Exam Abdominal exam: Present soft; Absent distention, tenderness or guarding Extremities Exam Extremities exam: Present tenderness (Tenderness to palpation of the left wrist), normal capillary refill and other (Tender to palpation of the left wrist about the lunate region. No anatomic snuffbox tenderness to palpation. Neurovascularly intact distally.); Absent edema Expanded Upper Extremity Exam Left: Hand L/R back image: 2 1. Tenderness to palpation Back Exam Back exam: Present normal inspection and full ROM; Absent tenderness Neurological Exam Neurological exam: Present alert, oriented X3, CN II-XII intact and normal gait; Absent motor sensory deficit Psychiatric Psychiatric exam: Present normal affect and normal mood Skin Skin exam: Present warm and dry Medical Decision Making Medical Records Medical records reviewed: Yes I reviewed the patient's medical records. Screening: Per USPSTF and CDC recommendations, given the prevalence of disease in our region, it is our hospital?s policy to screen for HIV and viral Hepatitis for all patients aged 18 and over and those with ongoing risk factors. Kelvin Inquiry Pt receiving controlled substance: No Vital Signs: 11/25/24 21:33 11/25/24 22:00 11/25/24 22:31 Temperature 97.8 F Temperature Source Oral Pulse Rate 63 59 L Pulse Rate [Radial] 95 H Respiratory Rate 18 Blood Pressure 150/83 H 136/71 Blood Pressure [Right Arm] 140/87 Blood Pressure Mean [Right Arm] 104 Blood Pressure Source Blood Pressure Position Blood Pressure Position [Right Arm] Sitting 02 Sat by Pulse Oximetry 98 98 95 Oxygen Delivery Method Room Air 11/25/24 23:02 Temperature 97.8 F Temperature Source Oral Pulse Rate 60 Pulse Rate [Radial] Respiratory Rate 18 Blood Pressure 147/88 H Blood Pressure [Right Arm] Blood Pressure Mean [Right Arm] Blood Pressure Source Automatic Cuff Blood Pressure Position Sitting Blood Pressure Position [Right Arm] 02 Sat by Pulse Oximetry Oxygen Delivery Method Room Air Lab Data Lab results reviewed: Yes I reviewed the patient's lab results. Orders (Tests/Meds): ED MEDICATIONS Discontinued Medications Generic Name Dose Route Start Last Admin Trade Name Freq PRN Reason Stop Dose Admin Hydrocodone Bitart/Acetaminophen 1 tab 11/25/24 21:50 11/25/24 22:13 Hydrocodone/Apap 5/325 Mg Tablet PO 11/25/24 21:51 1 tab ONCE ONE Administration ORDERS Category Date Time Status CT cervical spine wo con Stat Cat Scan 11/25/24 21:[address] head/brain wo con Stat Cat Scan 11/25/24 21:50 Completed Forearm XR left 2 views [XR forearm LT 2V] Stat Exams 11/25/24 21:50 Completed Hand XR left minimum 3 views [XR hand LT min 3V] Stat Exams 11/25/24 21:50 Completed Wrist XR left minimum 3 views [XR wrist LT min 3V] Stat Exams 11/25/24 21:50 Completed Medical Decision Narrative: In summary, this patient is a 84-year-old male presenting to the Emergency Department for evaluation of left wrist pain after mechanical ground-level fall earlier today. Differential diagnoses considered include but are not limited to fracture, contusion, strain/pain, neurovascular injury. Ruling out the most morbid conditions drove assessment. It should be noted patient's history includes extensive cardiovascular history on aspirin and Plavix which may or may not be at goal therapy. This complicates all aspects of care by increasing patient's risk for morbidity. On exam, the patient is ambulatory without significant issue and is neurologically intact. He has tenderness to palpation of his left wrist, mostly about the ulnar aspect. He compartments are soft, he is neurovascularly intact distally. Workup included x-rays of the left hand, wrist, and forearm. Based on [place] head CT and C-spine rules, CT head and C-spine were obtained in the setting of fall greater than age 65. I independently interpreted x-ray and CT prior to the radiologist read and noted chronic degenerative changes to the left wrist but I do not see any obvious fracture, though my assessment is limited secondary to the degree of degenerative change. CT scans do not demonstrate any acute intracranial hemorrhage or displaced C-spine fracture. Please see their read for final interpretation. Difficult to determine if the patient has an acute fracture or not based on the severe degeneration on x-ray as well as the fact that he has prior injuries. He was placed in a volar splint that is pre fabricated given his acute pain. He remained neurovascularly intact after splinting. He was given instructions for close follow-up with orthopedics as well strict return precautions. He was discharged after all questions were answered Procedures Orthopedic Splinting/Casting Injury #1: Side: left Upper Extremity Injury Location: wrist Upper Extremity Immobilizer: volar splint and applied by nurse/dr nicole Post Cast/Splinting Neuro Status: intact and no change Post Cast/Splinting Vasc Status: intact and no change Critical Care Critical Care Time Critical Care Time: No
[2024-11-25 23:02] VITALS: BP 147/88; PULSE 60; RESP 18; TEMP 36.6; O2SAT 96
== END 2024-11-25 23:06 | disposition home or self-care (01) ==
PROVIDERS: Emergency Provider Emergency Medicine; PCP Internal Medicine Adolescent Medicine
DX: M25.532 Pain in left wrist (principal); W19.XXXA Unspecified fall, initial encounter
CPT/HCPCS: 70450; 72125; 73090; 73110; 73130; 99285

== ENCOUNTER 2024-12-07 10:08 | Outpatient (CLI) | payer MEDICARE, OTHER, SELFPAY ==
--- NOTE | 2024-12-07 10:11 | XR_ITS ---
FINAL REPORT CLINICAL HISTORY: Fracture/ Bruising of left great toe COMPARISON: 11/17/2024 FINDINGS: AP, oblique and lateral views of the left foot were obtained. There is a fracture of the dorsal and medial aspect of the distal phalanx, best seen on the oblique views. This was not present on the prior exam of 11/17/2024. Multijoint degenerative change is present and stable. No acute soft tissue abnormality is present. IMPRESSION: Fracture of the dorsal and medial aspect of the distal phalanx, best seen on the oblique views and new since the prior exam of 11/17/2024. Multijoint degenerative change is present, stable. Reviewed, Interpreted and Dictated by Kelle Rucker MD Transcribed by Afshan Self Authenticated and [facility]
== END 2024-12-07 23:59 | disposition home or self-care (01) ==
LOC: RAD 10:09
PROVIDERS: PCP Internal Medicine Adolescent Medicine; Visit Provider Nurse Practitioner
DX: S92.402A Displaced unspecified fracture of left great toe, initial encounter for closed fracture (principal)
CPT/HCPCS: 73630

== ENCOUNTER 2024-12-22 12:14 | Observation (INO) | payer MEDICARE, OTHER, SELFPAY ==
[2024-12-22] VITALS (8 sets, daily range): BP systolic 110–187; BP diastolic 54–102; PULSE 57–65; RESP 15–20; TEMP 36.8–37.3; O2SAT 94–100; BMI 32.3
--- NOTE | 2024-12-22 12:16 | CT_ITS ---
FINAL REPORT TECHNIQUE: Noncontrast exam This study was performed with techniques to keep radiation doses as low as reasonably achievable, (ALARA). Individualized dose reduction techniques using automated exposure control or adjustment of mA and/or kV according to the patient''s size were employed. CLINICAL HISTORY: possible stroke; dizzy hx of tias COMPARISON: 11/26/2024 FINDINGS: Moderate atrophy and advanced chronic microvascular changes are noted. No change from the previous exam. No cortical edema is present. There is no mass or hemorrhage. Ventricles are normal. Bone windows show no skull fracture or obvious obstructive lesion. IMPRESSION: Stable chronic changes without acute findings. Consider MRI follow-up. Reviewed, Interpreted and Dictated by Inna Khan MD Transcribed by Nadia Hensley Authenticated and [facility]
--- NOTE | 2024-12-22 12:16 | ECG_ITS ---
APPROVED REPORT Exam: Resting ECG HR:57 bpm ECG Measurements Heart Rate 57 AXES [place] 167 P 75 QRSd 94 QRS 70 QT 397 T 65 QTc 390 Conclusion SINUS BRADYCARDIA BORDERLINE ECG UNCONFIRMED REPORT Electronically signed by : Nazario Ortega, 12/22/2024 16:18:36
--- NOTE | 2024-12-22 12:16 | XR_ITS ---
FINAL REPORT CLINICAL HISTORY: Dizzy COMPARISON: 07/25/2023 FINDINGS: CHEST 1 VIEW No acute pulmonary opacity is present. There is no evidence of effusion or pneumothorax. Mediastinum is unremarkable. Heart size is normal. IMPRESSION: No acute abnormality. Reviewed, Interpreted and Dictated by Inna Khan MD Transcribed by Viji Rodriguez Authenticated and [facility]
--- NOTE | 2024-12-22 12:16 | CT_ITS ---
FINAL REPORT CLINICAL HISTORY: possible stroke hx of tia COMPARISON: 10/15/2024 FINDINGS: CT NECK ANGIO, WITHOUT AND WITH CONTRAST TECHNIQUE: Thin section axial CT with contrast with multiplanar 3D MIP reconstruction. This study was performed with techniques to keep radiation doses as low as reasonably achievable, (ALARA). Individualized dose reduction techniques using automated exposure control or adjustment of mA and/or kV according to the patient''s size were employed. NASCET criteria and technique was utilized during interpretation. FINDINGS: Aortic arch: Arch shows no significant narrowing. Great vessel origins are widely patent. Right carotid: No significant stenosis is seen of the cervical common or internal carotid artery. Left carotid: No significant stenosis is seen of the cervical common or internal carotid artery. Vertebrals: The vertebral arteries are codominant. No significant stenosis is present. IMPRESSION: No significant stenosis of the cervical carotid arteries This study was performed using automated techniques to achieve radiation exposure as low as reasonably Reviewed, Interpreted and Dictated by Inna Khan MD Transcribed by Nadia Hensley Authenticated and [facility]
--- NOTE | 2024-12-22 12:16 | CT_ITS ---
FINAL REPORT CLINICAL HISTORY: possible stroke hx of tias COMPARISON: 10/15/2024 FINDINGS: CTA HEAD TECHNIQUE: Thin section axial CT with contrast with 3D MIP reconstruction This study was performed with techniques to keep radiation doses as low as reasonably achievable, (ALARA). Individualized dose reduction techniques using automated exposure control or adjustment of mA and/or kV according to the patient''s size were employed. FINDINGS: No aneurysm is seen. Major intracranial vessels are patent without significant stenosis. . IMPRESSION: Unremarkable This study was performed using automated techniques to achieve radiation exposure as low as reasonably achievable Reviewed, Interpreted and Dictated by Inna Khan MD Transcribed by Nadia Hensley Authenticated and . [facility]
--- NOTE | 2024-12-22 12:17 | ED_ITS ---
<Statement entered by Nazario Ortega MD - 12/22/24 16:15> I was consulted by the MARU, and we discussed the complexity of problems being addressed. I approved the treatment and management plan for this patient's care in the emergency department, thus performing a substantial portion of the medical decision making. Nazario Ortega MD Discharge Plan Disposition Patient Disposition: Admitted Condition: Fair Clinical Impressions Clinical Impression: TIA (transient ischemic attack) Discharge ED Provider: Nazario Ortega General Adult HPI General Chief complaint: Dizziness Stated complaint: Poss TIA Time Seen by Provider: 12/22/24 12:16 History of Present Illness HPI narrative: patient is an 84-year-old male PMHx history of TIAs, CKD, B12 deficiency, coronary artery calcification, hypertension, CAD, HLD, diabetes who presents to the ED via EMS from [facility] for complaints of visual changes that occurred approximately 20 to 30 minutes ago. Related Data Home Medications ?Medication ?Instructions ?Recorded ?Confirmed tiotropium bromide 2.5 2 inh inhalation DAILY 09/08/19 12/22/24 mcg/actuation mist for inhalation (Spiriva Respimat) rosuvastatin 20 mg tablet 20 mg PO HS 06/26/20 12/22/24 omeprazole 20 mg capsule,delayed 20 mg PO HS 10/17/20 12/22/24 release vilazodone 40 mg tablet 40 mg PO DAILY 12/24/21 12/22/24 clopidogrel 75 mg tablet 75 mg PO DAILY 01/01/23 12/22/24 cholecalciferol (vitamin D3) 125 125 mcg PO DAILY 09/08/23 12/22/24 mcg (5,000 unit) capsule insulin aspart U-100 100 unit/mL 0 sliding scale dose SQ DIRECTED 12/19/24 12/22/24 (3 mL) subcutaneous pen (Novolog FlexPen U-100 Insulin aspart) insulin glargine 100 unit/mL (3 24 unit SQ DAILY Diabetes 12/19/24 12/22/24 mL) subcutaneous pen (Lantus Solostar U-100 Insulin) cyanocobalamin (vitamin B-12) 5,000 mcg sublingual Q48H 12/22/24 12/22/24 5,000 mcg sublingual tablet fluticasone propionate 50 1 spray intranasal BID 12/22/24 12/22/24 mcg/actuation nasal spray,suspension insulin aspart U-100 100 unit/mL 0 unit SQ TIDWMEAL 12/22/24 12/22/24 (3 mL) subcutaneous pen (Novolog FlexPen U-100 Insulin aspart) Previous Rx's ?Medication ?Instructions ?Recorded empagliflozin 10 mg tablet 5 mg (1/2 x 10 mg) PO DAILY #90 07/18/24 (Jardiance) tabs bisoprolol fumarate 5 mg tablet 2.5 mg (1/2 x 5 mg) PO DAILY 90 12/01/24 days #45 tabs levocetirizine 5 mg tablet 5 mg PO DAILY #30 tabs 12/19/24 Allergies Allergy/AdvReac Type Severity Reaction Status Date / Time No Known Allergies Allergy Verified 12/19/24 15:32 [facility] Disclaimer: The information contained in this section may have been updated after the patient was seen, as this information can be updated by other users. 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 anglic[place] region History of knee replacement History of vasectomy History of hernia repair History of loop recorder History of cataract surgery History of surgery on left wrist History of prostatectomy History of tonsillectomy and adenoidectomy History of cholecystectomy History of appendectomy Family History Other No significant family history Social History Smoking Status: Never smoker second hand exposure: No alcohol intake: current alcohol intake frequency: holidays/special occasions only substance use type: denies use current occupational status: retired Travel in the last 8 weeks?: Inside the [place] household members: spouse housing: house number of children: 3 current occupational exposures/hazards: No caffeine: Yes Have you lived/traveled outside US in past 30 days?: No Contact w/someone who lives/traveled outside US past 30 days?: No Exposure to someone with infectious disease in past 14 days?: No Do you have a fever (greater than 100.4 F or 38 C)?: No Have you tested positive for COVID-19?: No Exposed to someone with COVID-19 in past 14 days?: No Do you have a sore throat?: No Do you have a cough?: No Do you have any weakness?: No Do you have any diarrhea?: No Are you experiencing any unusual bleeding?: No Do you have any muscle aches/pain?: No Do you have any abdominal pain?: No Are you experiencing loss of taste or smell?: No Other Medical History Have you received the Flu Vaccine for this season: Yes Have you received the Pneumonia Vaccine: Yes ROS Obtained: Yes Systems reviewed as appropriate & no additional complaints except as documented Physical Exam General General appearance: alert and in no apparent distress Head Head exam: atraumatic and normocephalic Eye Eye exam: Present normal appearance and PERRL ENT ENT exam: Present normal exam Neck Neck exam: Present normal inspection Chest Chest inspection: Present normal inspection and symmetric chest wall rise; Absent tenderness Respiratory Respiratory exam: Present normal lung sounds bilaterally Cardiovascular Cardiovascular exam: Present regular rate Abdominal Exam Abdominal exam: Present soft and normal bowel sounds; Absent tenderness Extremities Exam Extremities exam: Present normal inspection and full ROM Back Exam Back exam: Present normal inspection and full ROM Neurological Exam Neurological exam: Present alert and oriented X3 Psychiatric Psychiatric exam: Present normal affect and normal mood Skin Skin exam: Present warm and dry Medical Decision Making Medical Records Screening: Per USPSTF and CDC recommendations, given the prevalence of disease in our region, it is our hospital?s policy to screen for HIV and viral Hepatitis for all patients aged 18 and over and those with ongoing risk factors. Kelvin Inquiry Pt receiving controlled substance: No Kelvin was queried for this patient: No Vital Signs: 12/22/24 12:26 12/22/24 12:31 12/22/24 13:31 Temperature 98.4 F Temperature Source Oral Pulse Rate 57 L 57 L Pulse Rate [Right Radial] 57 L Respiratory Rate 15 15 Blood Pressure 126/102 H 187/95 H Blood Pressure [Right Arm] 159/79 H Blood Pressure Mean [Right Arm] 105 Blood Pressure Source Blood Pressure Source [Right Arm] Automatic Cuff Blood Pressure Position Blood Pressure Position [Right Arm] Supine 02 Sat by Pulse Oximetry 100 98 97 Oxygen Delivery Method Room Air Room Air Room Air 12/22/24 14:01 12/22/24 14:20 12/22/24 14:35 Temperature 98.4 F Temperature Source Oral Pulse Rate 58 L 58 L Pulse Rate [Right Radial] Respiratory Rate 16 Blood Pressure 143/85 H 143/85 H Blood Pressure [Right Arm] Blood Pressure Mean [Right Arm] Blood Pressure Source Automatic Cuff Blood Pressure Source [Right Arm] Blood Pressure Position Supine Blood Pressure Position [Right Arm] 02 Sat by Pulse Oximetry 98 Oxygen Delivery Method Room Air Room Air Room Air Lab Data Lab Results 12/22/24 12:18: WBC 5.8, RBC 4.88, Hgb 14.8, Hct 45.3, MCV 92.8, MCH 30.3, MCHC 32.7, RDW 13.7, Plt Count 243, MPV 9.6, Neut % (Auto) 71.8, Lymph % (Auto) 15.2, Collier % (Auto) 8.3, Eos % (Auto) 4.1, Baso % (Auto) 0.3, Neut # (Auto) 4.2, Lymph # (Auto) 0.9, Collier # (Auto) 0.5, Eos # (Auto) 0.2, Baso # (Auto) 0.0, PT 10.8, INR 0.97, APTT 25.1, Sodium 138, Potassium 4.6, Chloride 104, Carbon Dioxide 29, Anion Gap 9.6, BUN 29 H, Creatinine 2.10 H, Estimated Creat Clear 40, Estimated GFR 30 L, Est GFR ( Amer) 36 L, Glucose 193 H, Calcium 8.4, Total Bilirubin 0.6, AST 25, ALT 17, Alkaline Phosphatase 69, Troponin I < 0.01, Total Protein 6.8, Albumin 4.2, Globulin 2.6, Albumin/Globulin Ratio 1.6, T riglycerides 269 H, Cholesterol 129 L, LDL Cholesterol Direct 73.04 L, VLDL Cholesterol 54 H, HDL Cholesterol 24 L, Cholesterol/HDL Ratio 5.4 H, Plasma/Serum Alcohol < 10 12/22/24 13:47: Urine Color Yellow, Urine Appearance Clear, Urine pH 6.0, Ur Specific [place] 1.010, Urine Protein Negative, Urine Glucose (UA) 3+, Urine Ketones Negative, Urine Blood Negative, Urine Nitrate Negative, Urine Bilirubin Negative, Urine Urobilinogen 0.2, Ur Leukocyte Esterase Negative, Urine RBC None, Urine WBC None, Ur Squamous Epith Cells Occasional, Urine Bacteria Trace, Urine Opiates Screen Negative, Urine Methadone Screen Negative, Ur Barbituates Screen Negative, Ur Phencyclidine Scrn Negative, Ur Amphetamines Screen Negative, U Benzodiazepines Scrn Negative, Urine Cocaine Screen Negative, U Marijuana (THC) Screen Negative 12/22/24 12:18 12/22/24 12:18 Orders (Tests/Meds): ED MEDICATIONS Generic Name Dose Route Start Last Admin Trade Name Freq PRN Reason Stop Dose Admin Sodium Chloride 1,000 mls @ 500 mls/hr 12/22/24 13:55 12/22/24 13:59 Sod Chlor 0.9% 1000ml Bag IV 12/22/24 15:54 500 mls/hr .Q2H ONE Administration Sodium Chloride 10 ml 12/22/24 12:16 Sodium Chloride 0.9% 10ml Flush Syringe IV 01/21/25 12:15 NEEDED PRN Maintain IV Site Discontinued Medications Generic Name Dose Route Start Last Admin Trade Name Freq PRN Reason Stop Dose Admin Iopamidol 80 ml 12/22/24 13:07 12/22/24 13:10 Iopamidol-370 (76%);100ml Bottle IV 12/22/24 13:08 80 ml ONCE ONE Administration Sodium Chloride 10 ml 12/22/24 13:07 12/22/24 13:10 Sodium Chloride 0.9% 10ml Syr (Rad Only) IV 12/22/24 13:08 10 ml ONCE ONE Administration Sodium Chloride 50 ml 12/22/24 13:07 12/22/24 13:10 0.9 % Sodium Chloride 50 Ml Vial IV 12/22/24 13:08 50 ml ONCE ONE Administration ORDERS Category Date Time Status CT angio head Stat Cat Scan 12/22/24 12:[address] angio neck Stat Cat Scan 12/22/24 12:[address] head/brain wo con Stat Cat Scan 12/22/24 12:16 Completed XR chest portable Stat Exams 12/22/24 12:16 Completed Activated Partial Thrombo Time Stat Lab 12/22/24 12:18 Completed Complete Blood Count Auto Diff Stat Lab 12/22/24 12:18 Completed Comprehensive Metabolic Panel Stat Lab 12/22/24 12:18 Completed Drug Screen,Urine Stat Lab 12/22/24 13:47 Completed Ethyl Alcohol Stat Lab 12/22/24 12:18 Completed Lipid Panel Stat Lab 12/22/24 12:18 Completed Prothrombin Time INR Stat Lab 12/22/24 12:18 Completed Troponin I Q3H Lab 12/22/24 15:30 Ordered Troponin I Q3H Lab 12/22/24 18:30 Ordered Troponin I Stat Lab 12/22/24 12:18 Completed Urinalysis and Microscopic Stat Lab 12/22/24 13:47 Completed Medical Decision Narrative: In summary, patient is an 84-year-old male PMHx history of TIAs, CKD, B12 deficiency, coronary artery calcification, hypertension, CAD, HLD, diabetes who presents to the ED via EMS from [facility] for complaints of visual changes that occurred approximately 20 to 30 minutes ago. Patient states he was sitting in a chair at the rehab facility watching television when the left side of the television had squigly lines on the left side of the TV and he had mild dizziness while sitting. Patient states the symptoms lasted 15 minutes and resolved on their own. He denies any symptoms currently. He states this feels like his previous TIAs. Patient states he does take a blood thinner. Denies fever, chills, body aches, headache, posterior neck pain, chest pain, shortness of breath, abdominal pain, nausea, vomiting, dysuria. Upon initial assessment patient is alert, oriented and cooperative. He is stable. Physical exam unremarkable. Neuroexam normal. NIH 0 Differential diagnosis include stroke, TIA, mass, bleed, infectious process, among others. Will proceed with CT scans and hematologic labs. Hematologic labs reviewed. CBC unremarkable for any leukocytosis, stable H&H. Normal PT, APTT, INR. CMP remarkable for BUN 29, creatinine 2.1. GFR 30. After Ct scans, patient had IVF bolus. CT scan was remarkable for stable chronic changes without any acute findings on the CT head. Final read of the head CTA is unremarkable. Final read of the neck CTA shows no significant stenosis of the cervical carotid arteries. ABCD2 score 4. Patient needs MRI tomorrow. Discussed admission with patient, he is agreeable at this time discussed with hospital medicine, they accept patient to their service. Critical Care Critical Care Time Critical Care Time: No
[2024-12-22 12:29] LABS: Basophils % 0.3 % (0.1-2.0); Eosinophils # 0.2 Kmm3 (0.0-0.4); Eosinophils % 4.1 % (0.1-12.0); Hematocrit 45.3 % (42.0-52.0); Hemoglobin 14.8 g/dL (14.1-18.0); Immature Granulocytes # 0.02 10^3uL; Immature Granulocytes % 0.3 %; Lymphocytes # 0.9 K/mm3 (0.7-4.5); Lymphocytes % 15.2 % (10-50); Mean Corpuscular HGB Conc 32.7 g/dL (31.8-35.4); Mean Corpuscular Hemoglobin 30.3 pg (27.0-31.2); Mean Corpuscular Volume 92.8 fl (80-94); Mean Platelet Volume 9.6 fl (7.4-10.4); Monocytes # 0.5 K/mm3 (0.1-1.0); Monocytes % 8.3 % (1.7-9.3); Neutrophils # 4.2 K/mm3 (1.8-7.8); Neutrophils % 71.8 % (37.0-80.0); Nucleated Red Blood Cells # 0 10^3/uL; Nucleated Red Blood Cells % 0 %; Platelet Count 243 K/mm3 (142-424); Red Blood Count 4.88 M/mm3 (4.60-6.20); Red Cell Distribution Width 13.7 % (11.5-17.5); Red Cell Distribution Width-SD 46.8 fL; White Blood Count 5.8 K/mm3 (4.8-10.8)
[2024-12-22 12:41] LABS: Alanine Aminotransferase 17 U/L (12-78); Albumin Level 4.2 g/dl (3.5-5.0); Albumin/Globulin Ratio 1.6 (1.1-1.8); Alkaline Phosphatase 69 U/L (38-126); Anion Gap 9.6 mEq/L (5-15); Aspartate Amino Transferase 25 U/L (17-59); Bilirubin,Total 0.6 mg/dl (0.2-1.3); Blood Urea Nitrogen 29 mg/dl (9-20); Calcium 8.4 mg/dl (8.4-10.2); Carbon Dioxide 29 mmol/L (22.0-30.0); Chloride 104 mmol/L (98-107); Chol/HDL Ratio 5.4 (1-3.5); Cholesterol 129 mg/dl (140-200); Creatinine Clearance Estimated 40 mL/min (50-200); Estimated Glomerular Filt Rate 30 ml/min (>60); GFR (African American) 36 ML/MIN (>60); Globulin 2.6 g/dL (1.3-3.2); Glucose 193 mg/dl (74-100); HDL Cholesterol 24 mg/dl (40-60); Potassium 4.6 mmoL/L (3.5-5.1); Sodium 138 mmol/L (136-145); Total Protein,Serum 6.8 g/dl (6.3-8.2); Triglycerides 269 mg/dl (30-150); VLDL Cholesterol 54 mg/dL (0-40)
[2024-12-22 12:42] LABS: Ethyl Alcohol < 10 mg/dl (0-10)
[2024-12-22 12:43] LABS: Activated Partial Thrombo Time 25.1 seconds (22.8-30.6); INR 0.97 (0.9-1.1); Prothrombin Time 10.8 seconds (10.1-12.5)
[2024-12-22 12:51] LABS: Direct LDL Cholesterol 73.04 mg/dL (100-129)
[2024-12-22 12:55] LABS: Troponin I < 0.01 ng/ml (0.00-0.034)
[2024-12-22] MEDS: SODIUM CHLORIDE 0.9% 10ML SYR (RAD ONLY) 10 ML IV (13:10)
[2024-12-22] MEDS: IOPAMIDOL-370 (76%);100ML BOTTLE 80 ML IV (13:10)
[2024-12-22] MEDS: 0.9 % SODIUM CHLORIDE 50 ML VIAL IV (13:10)
[2024-12-22 13:49] LABS: Microscopic, Urine URINE MICROSCOPIC (MICROSCOPIC)
[2024-12-22 13:50] LABS: Appearance,Urine CLEAR (Clear); Bilirubin,Urine Negative (Negative); Blood, Urine Negative (Negative); Color,Urine YELLOW (Yellow); Glucose,Urine (UA) 3+ (Negative); Ketones,Urine Negative (Negative); Leukocyte Esterase,Urine Negative (Negative); Nitrate,Urine Negative (Negative); Protein,Urine Negative (Negative); Urobilinogen,Urine 0.2 EU/dl (0.2)
[2024-12-22 13:58] LABS: Bacteria,Urine Trace /lpf; Squamous Epithelial Cell,Urine Occasional #/hpf (0-5)
[2024-12-22] MEDS: 0.9 % SODIUM CHLORIDE 1000ML 1,000 ML 500 ML IV (13:59)
[2024-12-22 14:02] LABS: Benzodiazepines Screen,Urine Negative ng/ml (<200)
[2024-12-22 14:03] LABS: Amphetamine/Metha Screen,Urine Negative ng/ml (<1000)
[2024-12-22 14:04] LABS: Barbiturates Screen,Urine Negative ng/ml (<200)
[2024-12-22 14:05] LABS: Cannabinoid Screen,Urine Negative ng/ml (<50)
[2024-12-22 14:06] LABS: Cocaine Screen,Urine Negative ng/ml (<300); Methadone Screen,Urine Negative ng/ml (<300)
--- NOTE | 2024-12-22 14:06 | PC.NURSE ---
attempted to call commercial housekeeper for bed and no answer
[2024-12-22 14:07] LABS: Opiate Screen,Urine Negative ng/ml (<300); Phencyclidine Screen,Urine Negative ng/ml (<25)
--- NOTE | 2024-12-22 14:21 | PC.NURSE ---
Patient going to room 205
--- NOTE | 2024-12-22 14:32 | PC.NURSE ---
report given to stefany bains
--- NOTE | 2024-12-22 14:50 | PC.NURSE ---
arrived by w/c from ED
--- NOTE | 2024-12-22 14:50 | HMH.PHAINT1 ---
Pharmacy Intervention Comments: home medication list verified using list from [facility]-way
--- NOTE | 2024-12-22 15:24 | EXP.HP ---
[facility] Disclaimer: The information contained in this section may have been updated after the patient was seen, as this information can be updated by other users. 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 mormonism region History of knee replacement History of vasectomy History of hernia repair History of loop recorder History of cataract surgery History of surgery on left wrist History of prostatectomy History of tonsillectomy and adenoidectomy History of cholecystectomy History of appendectomy Family History Other No significant family history Social History Smoking Status: Never smoker second hand exposure: No alcohol intake: current alcohol intake frequency: holidays/special occasions only substance use type: denies use current occupational status: retired Travel in the last 8 weeks?: [place] the [place] household members: spouse housing: house number of children: 3 current occupational exposures/hazards: No caffeine: Yes Have you lived/traveled outside [place] in past 30 days?: No Contact w/someone who lives/traveled outside [place] past 30 days?: No Exposure to someone with infectious disease in past 14 days?: No Do you have a fever (greater than 100.4 F or 38 C)?: No Have you tested positive for COVID-19?: No Exposed to someone with COVID-19 in past 14 days?: No Do you have a sore throat?: No Do you have a cough?: No Do you have any weakness?: No Do you have any diarrhea?: No Are you experiencing any unusual bleeding?: No Do you have any muscle aches/pain?: No Do you have any abdominal pain?: No Are you experiencing loss of taste or smell?: No Other Medical History Have you received the Flu Vaccine for this season: Yes Have you received the Pneumonia Vaccine: Yes Meds Home Medications and Allergies Home Medications ?Medication ?Instructions ?Recorded ?Confirmed ?Type tiotropium bromide 2.5 2 inh inhalation DAILY 09/08/19 12/22/24 History mcg/actuation mist for inhalation (Spiriva Respimat) rosuvastatin 20 mg tablet 20 mg PO HS 06/26/20 12/22/24 History omeprazole 20 mg capsule,delayed 20 mg PO HS 10/17/20 12/22/24 History release vilazodone 40 mg tablet 40 mg PO DAILY 12/24/21 12/22/24 History clopidogrel 75 mg tablet 75 mg PO DAILY 01/01/23 12/22/24 History cholecalciferol (vitamin D3) 125 125 mcg PO DAILY 09/08/23 12/22/24 History mcg (5,000 unit) capsule empagliflozin 10 mg tablet 5 mg (1/2 x 10 mg) PO DAILY #90 07/18/24 12/22/24 Rx (Jardiance) tabs bisoprolol fumarate 5 mg tablet 2.5 mg (1/2 x 5 mg) PO DAILY 90 12/01/24 12/22/24 Rx days #45 tabs insulin aspart U-100 100 unit/mL 0 sliding scale dose SQ DIRECTED 12/19/24 12/22/24 History (3 mL) subcutaneous pen (Novolog FlexPen U-100 Insulin aspart) insulin glargine 100 unit/mL (3 24 unit SQ DAILY Diabetes 12/19/24 12/22/24 History mL) subcutaneous pen (Lantus Solostar U-100 Insulin) levocetirizine 5 mg tablet 5 mg PO DAILY #30 tabs 12/19/24 12/22/24 Rx cyanocobalamin (vitamin B-12) 5,000 mcg sublingual Q48H 12/22/24 12/22/24 History 5,000 mcg sublingual tablet fluticasone propionate 50 1 spray intranasal BID 12/22/24 12/22/24 History mcg/actuation nasal spray,suspension insulin aspart U-100 100 unit/mL 0 unit SQ TIDWMEAL 12/22/24 12/22/24 History (3 mL) subcutaneous pen (Novolog FlexPen U-100 Insulin aspart) New Prescriptions to Start Prescriptions: Allergies Allergy/AdvReac Type Severity Reaction Status Date / Time No Known Allergies Allergy Verified 12/19/24 15:32 Exam Data for Last 24 hours Vital signs and Labs for Last 24 Hours: Temp Pulse Resp BP Pulse Ox O2 Del Method 99.2 F 60 20 136/86 100 Room Air 12/22/24 14:49 12/22/24 14:49 12/22/24 14:49 12/22/24 14:49 12/22/24 14:49 12/22/24 14:49 Laboratory Results - last 24 hr 12/22/24 12:18: WBC 5.8, RBC 4.88, Hgb 14.8, Hct 45.3, MCV 92.8, MCH 30.3, MCHC 32.7, RDW 13.7, Plt Count 243, MPV 9.6, Neut % (Auto) 71.8, Lymph % (Auto) 15.2, Moore % (Auto) 8.3, Eos % (Auto) 4.1, Baso % (Auto) 0.3, Neut # (Auto) 4.2, Lymph # (Auto) 0.9, Moore # (Auto) 0.5, Eos # (Auto) 0.2, Baso # (Auto) 0.0, PT 10.8, INR 0.97, APTT 25.1, Sodium 138, Potassium 4.6, Chloride 104, Carbon Dioxide 29, Anion Gap 9.6, BUN 29 H, Creatinine 2.10 H, Estimated Creat Clear 40, Estimated GFR 30 L, Est GFR ( Amer) 36 L, Glucose 193 H, Calcium 8.4, Total Bilirubin 0.6, AST 25, ALT 17, Alkaline Phosphatase 69, Troponin I < 0.01, Total Protein 6.8, Albumin 4.2, Globulin 2.6, Albumin/Globulin Ratio 1.6, Triglycerides 269 H, Cholesterol 129 L, LDL Cholesterol Direct 73.04 L, VLDL Cholesterol 54 H, HDL Cholesterol 24 L, Cholesterol/HDL Ratio 5.4 H, Plasma/Serum Alcohol < 10 12/22/24 13:47: Urine Color Yellow, Urine Appearance Clear, Urine pH 6.0, Ur Specific [place] 1.010, Urine Protein Negative, Urine Glucose (UA) 3+, Urine Ketones Negative, Urine Blood Negative, Urine Nitrate Negative, Urine Bilirubin Negative, Urine Urobilinogen 0.2, Ur Leukocyte Esterase Negative, Urine RBC None, Urine WBC None, Ur Squamous Epith Cells Occasional, Urine Bacteria Trace, Urine Opiates Screen Negative, Urine Methadone Screen Negative, Ur Barbituates Screen Negative, Ur Phencyclidine Scrn Negative, Ur Amphetamines Screen Negative, U Benzodiazepines Scrn Negative, Urine Cocaine Screen Negative, U Marijuana (THC) Screen Negative I & O for Last 24 hours: Intake & Output 12/19/24 12/20/24 12/21/24 12/22/24 23:59 23:59 23:59 23:59 Weight 111.272 kg
--- NOTE | 2024-12-22 15:27 | SW/DCPLANNER ---
Addendum entered by Lexis Monroe 12/23/24 09:44: I have updated Michelle carmichael/ Andrew Chavez that patient will return today. Original Note: Patient currently resides at [facility]. Updated patient information will be faxed. Discharge date is unknown at this time. I will continue to follow up w/ Lam and Michelle carmichael/ Andrew Chavez.
--- NOTE | 2024-12-22 15:48 | CA_ITS ---
APPROVED REPORT EXAM: Comprehensive 2D, Doppler, and color-flow Echocardiogram Newspaper Stuffer: Colleen Campos RT(R) Ht: 6 ft 1 in Wt: 245lbs BSA: 2.35 BP: 109/69 mmHg Indications: TIA, hx of TIA's, CKD, GERD, hx loop recorder, AFIB, HTN, HLD, DM Echo Enhancing Agent Indication: Rule out thrombus Agent(s) / Amount(s) Used: Definity 2 cc 2D Dimensions LA Volume 35.70 mL LA Volume Index 15.19 mL/m2 (M/F) 16-34 EF AP4 55.50 % GL Strain -16.7 % M-Mode Dimensions RVDd 3.52 cm (0.9-2.6) LA Diam 3.71 cm (1.9-4.0) LVDd 4.33 cm (3.5-5.7) LVDs 3.10 cm (3.5-5.7) IVSd 0.72 cm (0.6-1.1) PWd 0.76 cm (0.6-1.1) EF (Teich) 55.10% FS 28.40% EDV (Teich) 84.40 mL ESV (Teich) 37.90 mL LV Diastology E Decel Time 220 (160-240 msec) E/A Ratio 1.0 Mitral Valve MV E Max Franko. 130.0 (40-130 cm/s) MV A Velocity 124.0 (40-130 cm/s) E/A Ratio 1.05 MV PHT 64.0 ms Left Ventricle The left ventricle is normal size. The left ventricular systolic function is normal. The left ventricular ejection fraction is within the normal range. There is increased LV wall thickness. There is normal LV segmental wall motion. Transmitral Doppler flow pattern suggests impaired LV relaxation. LVEF is 55%. Right Ventricle Right ventricle is mildly dilated. The right ventricular systolic function is normal. Atria Left atrium is mildly dilated. Right atrium is mildly dilated. There is no Doppler evidence of interatrial shunt. Aortic Valve The aortic valve is mildly thickened. There is no aortic valvular stenosis. Trace aortic regurgitation. Mitral Valve The mitral valve is normal in structure. No evidence of mitral valve stenosis. Mild mitral regurgitation. Tricuspid Valve Tricuspid valve is grossly normal in structure and function. Mild tricuspid regurgitation. RVSP is 20-25 mmHg. Pulmonic Valve The pulmonary valve is normal in structure. Mild pulmonic regurgitation. Great Vessels The aortic root is normal in size. IVC is normal in size and collapses >50% with inspiration. Pericardium There is no pericardial effusion. Other Information Study Quality: Fair Conclusion Normal biventricular systolic function. Mild biatrial dilation. Mild RV dilation. Mild MR, mild TR, mild PI. Electronically signed by : Maricel Aaron MD 12/23/2024 23:07:38
[2024-12-22 16:35] LABS: Troponin I < 0.01 ng/ml (0.00-0.034)
[2024-12-22] MEDS: DEFINITY US ECHO CONTRAST 2ML INJ 2 MG IV (16:50)
[2024-12-22 17:04] LABS: POC Glucose,Bedside 128 (70-110)
--- NOTE | 2024-12-22 18:28 | P.HP_ITS ---
<Statement entered by Pascual Joaquin MD - 12/26/24 17:01> Personally evaluated the patient and agree with the plan of care as outlined by the BUFFING WHEEL INSPECTOR. History of Present Illness *Admission Date: 12/22/24 *Reason for visit:: Dizziness *History of present illness: This is an 84-year-old male who has a past medical history significant for diabetes type 2, GERD, hyperlipidemia, incomplete right bundle branch block, coronary artery disease, TIA, coronary artery calcifications, atypical angina, anemia, depression, migraine headache, and asthma who presents with a chief complaint of dizziness. Due to patient's symptoms, he presented to the emergency room for evaluation. While in the emergency room, CT scan of the head was negative for any acute intracranial process. CTA of the head and neck was negative for any large vessel occlusion. Due to patient's symptomology, hospital medicine was contacted for further management. During my evaluation of the patient, patient states he was sitting at his nursing facility-[facility]-watching television and he started to experience weird visual disturbances. Patient states he noticed a squiggly line going across the television the visual disturbances were associated with mild dizziness. Patient states the symptoms lasted for approximately 15 minutes and resolved on his own. Patient mentions this has happened before in the past as far as the TIA symptoms. Patient mentions that he also has had a syncopal episode in which he is seeing a neurologist for who referred him to cardiology. Cardiology placed a loop recorder which is currently in place. Patient is currently denying any chest pain, lightheadedness, blurred vision, diplopia, lateral gaze deficit, upper or lower extremity strength weakness, shortness of breath, dyspnea, nausea, vomiting, or diarrhea. Additional pertinent labs obta ined included BUN 29, creatinine 2.10, GFR of 30, blood glucose 193, triglyceride 269, cholesterol 129, LDL 73.04, and HDL 24. [facility] Disclaimer: The information contained in this section may have been updated after the patient was seen, as this information can be updated by other users. 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 History of knee replacement History of vasectomy History of hernia repair History of loop recorder History of cataract surgery History of surgery on left wrist History of prostatectomy History of tonsillectomy and adenoidectomy History of cholecystectomy History of appendectomy Family History Other No significant family history Social History (Updated 12/22/24 @ 15:49 by Trisha Carrillo RN) Smoking Status: Never smoker second hand exposure: No alcohol intake: current alcohol intake frequency: holidays/special occasions only substance use type: denies use current occupational status: retired Travel in the last 8 weeks?: Inside the [place] household members: spouse housing: house number of children: 3 current occupational exposures/hazards: No caffeine: Yes Have you lived/traveled outside US in past 30 days?: No Contact w/someone who lives/traveled outside US past 30 days?: No Exposure to someone with infectious disease in past 14 days?: No Do you have a fever (greater than 100.4 F or 38 C)?: No Have you tested positive for COVID-19?: No Exposed to someone with COVID-19 in past 14 days?: No Do you have a sore throat?: No Do you have a cough?: No Do you have any weakness?: No Are you experiencing any nausea/vomitting?: No Do you have any diarrhea?: No Are you experiencing any unusual bleeding?: No Do you have any muscle aches/pain?: No Do you have any abdominal pain?: No Are you experiencing loss of taste or smell?: No Other Medical History Have you received the Flu Vaccine for this season: Yes Have you received the Pneumonia Vaccine: Yes Review of Systems Review of Systems Review of systems:: pertinent systems reviewed and negative unless documented below Constitutional Constitutional: Reports system reviewed and no additional complaints, except as documented Eyes Eyes: Reports change in vision ENT Ears, Nose, Mouth, and Throat: Reports system reviewed and no additional complaints, except as documented and Reports dizziness *Cardiovascular Cardiovascular: Reports system reviewed and no additional complaints, except as documented *Respiratory Respiratory: Reports system reviewed and no additional complaints, except as documented *Gastrointestinal Gastrointestinal: Reports system reviewed and no additional complaints, except as documented *Genitourinary Genitourinary: Reports system reviewed and no additional complaints, except as documented *Musculoskeletal Musculoskeletal: Reports system reviewed and no additional complaints, except as documented Integumentary/Breasts Skin/Breast: Reports system reviewed and no additional complaints, except as documented *Neurologic Neurologic: Reports dizziness Psychiatric Psychiatric: Reports system reviewed and no additional complaints, except as documented Endocrine Endocrine: Reports system reviewed and no additional complaints, except as documented Hematologic/Lymphatic Hematologic/Lymphatic: Reports system reviewed and no additional complaints, except as documented Allergic/Immunologic Allergic/Immunologic: Reports system reviewed and no additional complaints, except as documented Meds Home Medications and Allergies Home Medications ?Medication ?Instructions ?Recorded ?Confirmed ?Type tiotropium bromide 2.5 2 inh inhalation DAILY 09/08/19 12/22/24 History mcg/actuation mist for inhalation (Spiriva Respimat) rosuvastatin 20 mg tablet 20 mg PO HS 06/26/20 12/22/24 History omeprazole 20 mg capsule,delayed 20 mg PO HS 10/17/20 12/22/24 History release vilazodone 40 mg tablet 40 mg PO DAILY 12/24/21 12/22/24 History clopidogrel 75 mg tablet 75 mg PO DAILY 01/01/23 12/22/24 History cholecalciferol (vitamin D3) 125 125 mcg PO DAILY 09/08/23 12/22/24 History mcg (5,000 unit) capsule empagliflozin 10 mg tablet 5 mg (1/2 x 10 mg) PO DAILY #90 07/18/24 12/22/24 Rx (Jardiance) tabs bisoprolol fumarate 5 mg tablet 2.5 mg (1/2 x 5 mg) PO DAILY 90 12/01/24 12/22/24 Rx days #45 tabs insulin aspart U-100 100 unit/mL 0 sliding scale dose SQ DIRECTED 12/19/24 12/22/24 History (3 mL) subcutaneous pen (Novolog FlexPen U-100 Insulin aspart) insulin glargine 100 unit/mL (3 24 unit SQ DAILY Diabetes 12/19/24 12/22/24 History mL) subcutaneous pen (Lantus Solostar U-100 Insulin) levocetirizine 5 mg tablet 5 mg PO DAILY #30 tabs 12/19/24 12/22/24 Rx cyanocobalamin (vitamin B-12) 5,000 mcg sublingual Q48H 12/22/24 12/22/24 History 5,000 mcg sublingual tablet fluticasone propionate 50 1 spray intranasal BID 12/22/24 12/22/24 History mcg/actuation nasal spray,suspension insulin aspart U-100 100 unit/mL 0 unit SQ TIDWMEAL 12/22/24 12/22/24 History (3 mL) subcutaneous pen (Novolog FlexPen U-100 Insulin aspart) New Prescriptions to Start Prescriptions: Allergies Allergy/AdvReac Type Severity Reaction Status Date / Time No Known Allergies Allergy Verified 12/19/24 15:32 Exam Data for Last 24 hours Vital signs and Labs for Last 24 Hours: Temp Pulse Resp BP Pulse Ox O2 Del Method 98.2 F 64 18 136/54 L 94 L Room Air 12/22/24 16:00 12/22/24 16:00 12/22/24 16:00 12/22/24 16:00 12/22/24 16:00 12/22/24 17:16 Laboratory Results - last 24 hr 12/22/24 12:18: WBC 5.8, RBC 4.88, Hgb 14.8, Hct 45.3, MCV 92.8, MCH 30.3, MCHC 32.7, RDW 13.7, Plt Count 243, MPV 9.6, Neut % (Auto) 71.8, Lymph % (Auto) 15.2, Mclean % (Auto) 8.3, Eos % (Auto) 4.1, Baso % (Auto) 0.3, Neut # (Auto) 4.2, Lymph # (Auto) 0.9, Mclean # (Auto) 0.5, Eos # (Auto) 0.2, Baso # (Auto) 0.0, PT 10.8, INR 0.97, APTT 25.1, Sodium 138, Potassium 4.6, Chloride 104, Carbon Dioxide 29, Anion Gap 9.6, BUN 29 H, Creatinine 2.10 H, Estimated Creat Clear 40, Estimated GFR 30 L, Est GFR ( Amer) 36 L, Glucose 193 H, Calcium 8.4, Total Bilirubin 0.6, AST 25, ALT 17, Alkaline Phosphatase 69, Troponin I < 0.01, Total Protein 6.8, Albumin 4.2, Globulin 2.6, Albumin/Globulin Ratio 1.6, Triglycerides 269 H, Cholesterol 129 L, LDL Cholesterol Direct 73.04 L, VLDL Cholesterol 54 H, HDL Cholesterol 24 L, Cholesterol/HDL Ratio 5.4 H, Plasma/Serum Alcohol < 10 12/22/24 13:47: Urine Color Yellow, Urine Appearance Clear, Urine pH 6.0, Ur Specific [place] 1.010, Urine Protein Negative, Urine Glucose (UA) 3+, Urine Ketones Negative, Urine Blood Negative, Urine Nitrate Negative, Urine Bilirubin Negative, Urine Urobilinogen 0.2, Ur Leukocyte Esterase Negative, Urine RBC None, Urine WBC None, Ur Squamous Epith Cells Occasional, Urine Bacteria Trace, Urine Opiates Screen Negative, Urine Methadone Screen Negative, Ur Barbituates Screen Negative, Ur Phencyclidine Scrn Negative, Ur Amphetamines Screen Negative, U Benzodiazepines Scrn Negative, Urine Cocaine Screen Negative, U Marijuana (THC) Screen Negative 12/22/24 15:40: Troponin I < 0.01 12/22/24 16:58: POC Glucose 128 H I & O for Last 24 hours: Intake & Output 12/19/24 12/20/24 12/21/24 12/22/24 23:59 23:59 23:59 23:59 Intake Total 270 / 270 Output Total 0 / 0 Balance 270 / 270 Weight 111.272 kg Constitutional Constitutional: no acute distress and cooperative *Routine HEENT Exam Head: Present normocephalic and atraumatic Eye: Present EOMI and PERRL ENT: Present mucous membranes moist *Routine Neck Exam Neck: Present supple, full ROM and trachea midline *Routine Respiratory Exam Respiratory: Present CTA bilaterally, normal respiratory effort, able to speak in complete sentences and symmetric chest movement *Routine Cardiovascular Exam Cardiovascular: Present RRR, Normal S1, Normal S2 and bradycardia *Routine Abdominal Exam Abdominal: Present soft and normoactive bowel sounds *Routine Rectal Exam Rectal:: deferred *Routine Genitalia Exam Genitalia:: deferred *Routine Extremities Exam Extremities: Present full ROM, pulses intact and normal capillary refill Routine Back/Spine/Pelvis Exam Back/Spine: Present full ROM *Routine Skin Exam Skin: Present dry, warm and normal turgor *Routine Neurological Exam Neurological: Present alert, oriented X3, CN II-XII intact, moving all extremities and normal speech Routine Psychiatric Exam Psychiatric: Present normal affect, normal thought process, cooperative, good insight and good judgment H&P: Result Impressions [age]-year-old male presents with a chief complaint of visual disturbances and dizziness. Has known coronary artery disease with prior TIA. Assessment and Plan *Assessment and plan (1) TIA (transient ischemic attack): Status: Acute Category: Medical Code(s): G45.9 - Transient cerebral ischemic attack, unspecified (2) Dizziness: Status: Acute Category: Medical Code(s): R42 - Dizziness and giddiness (3) CKD (chronic kidney disease): Status: Acute Qualifiers: Chronic kidney disease stage: unspecified stage Qualified Code(s): N18.9 - Chronic kidney disease, unspecified Category: Medical Code(s): N18.9 - Chronic kidney disease, unspecified (4) Hyperglycemia: Status: Acute Category: Medical Code(s): R73.9 - Hyperglycemia, unspecified (5) Hyperlipidemia: Status: Acute Qualifiers: Hyperlipidemia type: unspecified Qualified Code(s): E78.5 - Hyperlipidemia, unspecified Category: Medical Code(s): E78.5 - Hyperlipidemia, unspecified Plan Assessment Rule out CVA versus TIA -Patient is currently out of the tPA window. - Will obtain MRI of the brain without contrast - Continue Plavix and aspirin therapy Dizziness - Will interrogate patient's implanted loop recorder if possible - Will give meclizine if dizziness persists Chronic kidney disease - Patient is at baseline creatinine - Will avoid nephrotoxic drugs - Will monitor creatinine daily Hyperglycemia - Most likely in the setting of her diabetes - Will continue long-acting insulin - Will start sliding scale insulin AC and at bedtime with mild scale coverage Hyperlipidemia - Continue patient's statin Plan: Admit patient to the MedSurg unit I spoke with warehouse shipping supervisor to see if we can get patient's loop recorder interrogated Occupational Therapy Physical therapy [place] lock Vital signs every 4 hours Case management Diabetic diet CBC/CMP daily Magnesium daily 40 mg Lovenox subcu daily for DVT prophylaxis 4 g Zofran IV push every 8 hours for nausea mom Full code I have discussed this case with attending physician Dr. Joaquin and I look forward to more input
[2024-12-22 19:54] LABS: Troponin I < 0.01 ng/ml (0.00-0.034)
[2024-12-22] MEDS: humaLOG 100 UNITS/ML 10ML VIAL (SSI) SUBCUT (21:52)
[2024-12-22] MEDS: FLUTICASONE PROP 50MCG NASAL SPRAY 16GM 1 SPRAY NS (21:59)
[2024-12-23] VITALS: BP 95/53; PULSE 72; RESP 18; TEMP 36.9; O2SAT 95
[2024-12-23 04:00] VITALS: BP 104/40; PULSE 74; RESP 16; TEMP 37; O2SAT 93; BMI 32.8
--- NOTE | 2024-12-23 05:46 | PC.NURSE ---
V/s, ox4. Blood glucose monitored. No acute events to report. Plan of care ongoing.
--- NOTE | 2024-12-23 06:05 | MR_ITS ---
FINAL REPORT TECHNIQUE: Multiplanar MR without contrast CLINICAL HISTORY: dizziness COMPARISON: 10/27/2024 FINDINGS: Diffusion sequences show no signal abnormality to indicate acute infarct. Scattered periventricular white matter signal changes are seen compatible with moderate chronic ischemic gliotic disease. Moderate generalized atrophy is present. No mass, hemorrhage or edema is seen. Ventricles are normal. Major vascular flow voids are intact. IMPRESSION: 1. No mass, acute infarct or hydrocephalus 2. Atrophy and chronic ischemic white matter changes Reviewed, Interpreted and Dictated by Inna Khan MD Transcribed by Nadia Hensley Authenticated and [facility]
[2024-12-23] MEDS: humaLOG 100 UNITS/ML 10ML VIAL (SSI) SUBCUT (06:18)
[2024-12-23 06:36] LABS: Basophils % 0.3 % (0.1-2.0); Eosinophils # 0.3 Kmm3 (0.0-0.4); Eosinophils % 4.4 % (0.1-12.0); Hematocrit 40.7 % (42.0-52.0); Hemoglobin 13.6 g/dL (14.1-18.0); Immature Granulocytes # 0.02 10^3uL; Immature Granulocytes % 0.3 %; Lymphocytes # 0.5 K/mm3 (0.7-4.5); Lymphocytes % 7.7 % (10-50); Mean Corpuscular HGB Conc 33.4 g/dL (31.8-35.4); Mean Corpuscular Hemoglobin 30.4 pg (27.0-31.2); Mean Corpuscular Volume 91.1 fl (80-94); Mean Platelet Volume 9.8 fl (7.4-10.4); Monocytes # 0.5 K/mm3 (0.1-1.0); Monocytes % 7.6 % (1.7-9.3); Neutrophils # 4.9 K/mm3 (1.8-7.8); Neutrophils % 79.7 % (37.0-80.0); Nucleated Red Blood Cells # 0 10^3/uL; Nucleated Red Blood Cells % 0 %; Platelet Count 232 K/mm3 (142-424); Red Blood Count 4.47 M/mm3 (4.60-6.20); Red Cell Distribution Width 13.7 % (11.5-17.5); Red Cell Distribution Width-SD 46.2 fL; White Blood Count 6.2 K/mm3 (4.8-10.8)
[2024-12-23 06:37] LABS: MANUAL DIFFERENTIAL MANUAL DIFFERENTIAL (MANUAL DIFF)
[2024-12-23 06:42] LABS: Alanine Aminotransferase 14 U/L (12-78); Albumin Level 3.6 g/dl (3.5-5.0); Albumin/Globulin Ratio 1.6 (1.1-1.8); Alkaline Phosphatase 69 U/L (38-126); Anion Gap 10.1 mEq/L (5-15); Aspartate Amino Transferase 18 U/L (17-59); Bilirubin,Total 0.5 mg/dl (0.2-1.3); Blood Urea Nitrogen 26 mg/dl (9-20); Calcium 8.1 mg/dl (8.4-10.2); Carbon Dioxide 25 mmol/L (22.0-30.0); Chloride 107 mmol/L (98-107); Creatinine Clearance Estimated 49 mL/min (50-200); Estimated Glomerular Filt Rate 38 ml/min (>60); GFR (African American) 46 ML/MIN (>60); Globulin 2.3 g/dL (1.3-3.2); Glucose 177 mg/dl (74-100); Potassium 4.1 mmoL/L (3.5-5.1); Sodium 138 mmol/L (136-145); Total Protein,Serum 5.9 g/dl (6.3-8.2)
[2024-12-23] MEDS: ENOXAPARIN 40MG/0.4ML SYRINGE 40 MG SUBCUT (07:48)
[2024-12-23] MEDS: INSULIN GLARGINE 100 UNITS/ML 3ML FLEXPEN 24 UNIT SUBCUT (07:48)
[2024-12-23] MEDS: CLOPIDOGREL 75MG TAB 75 MG PO (07:49)
[2024-12-23] MEDS: LORATADINE 10MG TABLET 10 MG PO (07:49)
[2024-12-23] MEDS: CHOLECALCIFEROL 1,000 UNITS (25MCG) TABLET 50 MCG PO (07:49)
[2024-12-23] MEDS: EMPAGLIFLOZIN 10MG TABLET 5 MG PO (07:50)
[2024-12-23 08:00] VITALS: BP 111/59; PULSE 67; RESP 18; TEMP 36.9; O2SAT 92
[2024-12-23] MEDS: FLUTICASONE PROP 50MCG NASAL SPRAY 16GM 1 SPRAY NS (08:03)
[2024-12-23 08:31] LABS: Eosinophils % 5 % (0-3); Lymphocytes % 11 % (10-50); Monocytes % 9 % (2-9); Neutrophils % 75 % (42-76); Platelet Estimate Normal; RBC Morphology Normal; Total Cells Counted 100
--- NOTE | 2024-12-23 10:45 | HMH.OTEV ---
OT Inpatient Evaluation Rehab OT IP Evaluation Start: 12/22/24 15:46 Freq: ONCE Status: Active Protocol: Document 12/23/24 10:37 [facility] (Rec: 12/23/24 10:44 [facility] [id number]) Rehab OT IP Assessment Subjective History Pt oriented x 3 on arrival. Pt agreeable to engage in therapy evaluation. Pt admitted on 12/22/24 due to TIA . History and physical: This is an 84-year-old male who has a past medical history significant for diabetes type 2, GERD, hyperlipidemia, incomplete right bundle branch block, coronary artery disease, TIA, coronary artery calcifications , atypical angina, anemia, depression, migraine headache, and asthma who presents with a chief complaint of dizziness . Due to patient's symptoms, he presented to the emergency room for evaluation. While in the emergency room, CT scan of the head was negative for any acute intracranial process . CTA of the head and neck was negative for any large vessel occlusion. Due to patient's symptomology, hospital medicine was contacted for further management. During my evaluation of the patient, patient states he was sitting at his nursing facility-[facility]-watching television and he started to experience weird visual disturbances. Patient states he noticed a squiggly line going across the television the visual disturbances were associated with mild dizziness . Patient states the symptoms lasted for approximately 15 minutes and resolved on his own. Patient mentions this has happened before in the past as far as the TIA symptoms. Patient mentions that he also has had a syncopal episode in which he is seeing a neurologist for who referred him to cardiology . Cardiology placed a loop recorder which is currently in place. Patient is currently denying any chest pain, lightheadedness, blurred vision, diplopia, lateral gaze deficit, upper or lower extremity strength weakness, shortness of breath, dyspnea, nausea, vomiting, or diarrhea. Additional pertinent labs obtained included BUN 29, creatinine 2.10, GFR of 30, blood glucose 193, triglyceride 269, cholesterol 129, LDL 73.04, and HDL 24. Subjective Prior to being in the hospital , pt lived at [facility] on personal care side. Pt claims normally he only required assistance with medication assistance and IADLS. Pt was independent with dressing and bathing. Pt used a rolling walker to complete functional transfers. Objective Patient Orientation Person,Place,Birthday Right Upper Extremity Gross ROM WFL Left Upper Extremity Gross ROM WFL Bed Mobility bed mobility-scooting,bed mobility - supine/sit Assist Level Supervision/Stand by Transfer Training Sit/Stand Transfer Assist Level Supervision/Stand by Lower Body Dressing Ability Standby Assistance Rehab OT IP prob,goals,plan Problems Date of Evaluation: 12/23/24 Rehab Potential Rehab Potential Innapropriate for Skilled Therapy Discharge Plan OT Discharge Plan Pt appears to be at baseline with functional transfers and ADL independence. Pt can return back to [facility] on [facility] care side once he is medically stable per physician . Eval Complexity Eval Charge Codes 55351 - Moderate Complexity PHYSICIAN CERTIFICATION: I certify the specified therapy services for Eric Vázquez JR are required, authorized, and reviewed every 30 days.
--- NOTE | 2024-12-23 10:54 | HMH.PTEV ---
Physical Therapy Evaluation Rehab PT IP Evaluation Start: 12/22/24 15:46 Freq: .once Status: Active Protocol: Document 12/23/24 10:52 [facility] (Rec: 12/23/24 10:54 [facility] [id number]) Subjective/History History History Per H&P: This is an 84-year- old male who has a past medical history significant for diabetes type 2, GERD, hyperlipidemia, incomplete right bundle branch block, coronary artery disease, TIA, coronary artery calcifications, atypical angina, anemia, depression, migraine headache, and asthma who presents with a chief complaint of dizziness. Due to patient's symptoms, he presented to the emergency room for evaluation. While in the emergency room, CT scan of the head was negative for any acute intracranial process . CTA of the head and neck was negative for any large vessel occlusion. Due to patient's symptomology, hospital medicine was contacted for further management. During my evaluation of the patient, patient states he was sitting at his nursing facility-[facility]-watching television and he started to experience weird visual disturbances. Patient states he noticed a squiggly line going across the television the visual disturbances were associated with mild dizziness . Patient states the symptoms lasted for approximately 15 minutes and resolved on his own. Patient mentions this has happened before in the past as far as the TIA symptoms. Patient mentions that he also has had a syncopal episode in which he is seeing a neurologist for who referred him to cardiology . Cardiology placed a loop recorder which is currently in place. Patient is currently denying any chest pain, lightheadedness, blurred vision, diplopia, lateral gaze deficit, upper or lower extremity strength weakness, shortness of breath, dyspnea, nausea, vomiting, or diarrhea. Additional pertinent labs obtained included BUN 29, creatinine 2.10, GFR of 30, blood glucose 193, triglyceride 269, cholesterol 129, LDL 73.04, and HDL 24. Subjective Subjective Pt reports he lives a [facility] and is usually IND with all mobility using his rollator. New diagnosis of cancer in past 12 No months? [facility] How much help from another person do you currently need... Turning from your back to your side None while in a flat bed without using bedrails? Moving from lying on back to sitting on None the side of a flat bed without using bedrails? Moving to and from a bed to a chair ( None including a wheelchair)? Standing up from a chair using your arms None ? (e.g., wheelchair, bedside chair) Walking in hospital room? None Climbing 3-5 steps with a railing? None Mobility Score [address] [facility] Mobility Calculator Mobility 8 Walk 250 feet or more Rehab PT IP Eval Objective Appearance Patient Behavior Appropriate,Cooperative Patient Orientation Person,Place,Situation Difficulty following instructions none Speech Pattern Clear Ambulation Patient Able to Ambulate Yes Ambulation Observation IP General Gait Pattern Observation No Deviations/Normal Ambulation Distance (feet) 300 Ambulation Assistive Device Rolling Walker Ambulation Ability Supervision/Stand by Balance Ability to Arise Able, uses arms to help Sitting Balance Steady, safe Standing Balance Steady, wide stance Dynamic Sitting Balance Ability Good Dynamic Standing Balance Ability Good Transfers Bed Transfer Ability Independent Sit to Stand Bed Transfer Ability Independent Rehab PT IP prob,goals,plan Problems Date of Evaluation: 12/23/24 Rehab Potential Rehab Potential Innapropriate for Skilled Therapy Discharge Plan PT Discharge Plan Pt safe to d/c back to [facility] when deemed medically necessary d/t current level of mobility and staff support. Pt not appropriate for skilled acute care PT at this time d/ t pt?s mobility being at baseline. Eval Complexity Eval Charge Codes 23715 - Moderate Complexity PHYSICIAN CERTIFICATION: I certify the specified therapy services for Eric Vázquez JR are required, authorized, and reviewed every 30 days.
--- NOTE | 2024-12-23 11:03 | P.DS_ITS ---
General Admission date:: 12/22/24 HPI HPI HPI: This is an 84-year-old male who has a past medical history significant for diabetes type 2, GERD, hyperlipidemia, incomplete right bundle branch block, coronary artery disease, TIA, coronary artery calcifications, atypical angina, anemia, depression, migraine headache, and asthma who presents with a chief complaint of dizziness. Due to patient's symptoms, he presented to the e mergency room for evaluation. While in the emergency room, CT scan of the head was negative for any acute intracranial process. CTA of the head and neck was negative for any large vessel occlusion. Due to patient's symptomology, hospital medicine was contacted for further management. During my evaluation of the patient, patient states he was sitting at his nursing facility-[facility]-watching television and he started to experience weird visual disturbances. Patient states he noticed a squiggly line going across the television the visual disturbances were associated with mild dizziness. Patient states the symptoms lasted for approximately 15 minutes and resolved on his own. Patient mentions this has happened before in the past as far as the TIA symptoms. Patient mentions that he also has had a syncopal episode in which he is seeing a neurologist for who referred him to cardiology. Cardiology placed a loop recorder which is currently in place. Patient is currently denying any chest pain, lightheadedness, blurred vision, diplopia, lateral gaze deficit, upper or lower extremity strength weakness, shortness of breath, dyspnea, nausea, vomiting, or diarrhea. Additional pertinent labs obtained included BUN 29, creatinine 2.10, GFR of 30, blood glucose 193, triglyceride 269, cholesterol 129, LDL 73.04, and HDL 24. Hospital Course Hospital Course Hospital Course: Eric Vázquez is a 84-year-old male who presented with 15 minutes of visual squiggly lines and dizziness and was admitted for CVA workup. #TIA #History of TIAs ? No known history of true CVA, no acute or chronic focal neurological deficits. ? CT head, CTA head/neck, MRI brain did not show acute findings. Did show age- related chronic atrophy and ischemic changes. ? ABCD2 score 2, will continue monotherapy with clopidogrel 75 mg. ? A1c 8.1%, LDL 73, TSH normal. BP at goal. ? Loop recorder was also interrogated, with no arrhythmia burden including A- fib. #Paroxysmal A-fib ? Currently rate controlled. Continue bisoprolol. History of falls, so no ant icoagulation per cardiology. ? Loop recorder in place, interrogated during admission and no arrhythmia burden. #Type 2 diabetes ? Hemoglobin A1c 8.1%. ? Continue home Jardiance 10 mg, Lantus 24 units. #COPD ? Continue home Spiriva. #History of falls ? Continue PT/OT at [facility] with rolling walker. Total time spent on discharge: 35 minutes on chart review, counseling, documentation, and direct care with patient. Exam Data for Last 24 hours Vital signs and Labs for Last 24 Hours: Temp Pulse Resp BP Pulse Ox O2 Del Method 98.5 F 67 18 111/59 L 92 L Room Air 12/23/24 08:00 12/23/24 08:00 12/23/24 08:00 12/23/24 08:00 12/23/24 08:00 12/23/24 08:00 Laboratory Results - last 24 hr 12/22/24 12:18: WBC 5.8, RBC 4.88, Hgb 14.8, Hct 45.3, MCV 92.8, MCH 30.3, MCHC 32.7, RDW 13.7, Plt Count 243, MPV 9.6, Neut % (Auto) 71.8, Lymph % (Auto) 15.2, [place] % (Auto) 8.3, Eos % (Auto) 4.1, Baso % (Auto) 0.3, Neut # (Auto) 4.2, Lymph # (Auto) 0.9, [place] # (Auto) 0.5, Eos # (Auto) 0.2, Baso # (Auto) 0.0, PT 10.8, INR 0.97, APTT 25.1, Sodium 138, Potassium 4.6, Chloride 104, Carbon Dioxide 29, Anion Gap 9.6, BUN 29 H, Creatinine 2.10 H, Estimated Creat Clear 40, Estimated GFR 30 L, Est GFR ( Amer) 36 L, Glucose 193 H, Calcium 8.4, Total Bilirubin 0.6, AST 25, ALT 17, Alkaline Phosphatase 69, Troponin I < 0.01, Total Protein 6.8, Albumin 4.2, Globulin 2.6, Albumin/Globulin Ratio 1.6, Triglyceride s 269 H, Cholesterol 129 L, LDL Cholesterol Direct 73.04 L, VLDL Cholesterol 54 H, HDL Cholesterol 24 L, Cholesterol/HDL Ratio 5.4 H, Plasma/Serum Alcohol < 10 12/22/24 13:47: Urine Color Yellow, Urine Appearance Clear, Urine pH 6.0, Ur Specific [place] 1.010, Urine Protein Negative, Urine Glucose (UA) 3+, Urine Ketones Negative, Urine Blood Negative, Urine Nitrate Negative, Urine Bilirubin Negative, Urine Urobilinogen 0.2, Ur Leukocyte Esterase Negative, Urine RBC None, Urine WBC None, Ur Squamous Epith Cells Occasional, Urine Bacteria Trace, Urine Opiates Screen Negative, Urine Methadone Screen Negative, Ur Barbituates Screen Negative, Ur Phencyclidine Scrn Negative, Ur Amphetamines Screen Negative, U Benzodiazepines Scrn Negative, Urine Cocaine Screen Negative, U Marijuana (THC) Screen Negative 12/22/24 15:40: Troponin I < 0.01 12/22/24 16:58: POC Glucose 128 H 12/22/24 18:18: Troponin I < 0.01 12/23/24 06:02: WBC 6.2, RBC 4.47 L, Hgb 13.6 L, Hct 40.7 L, MCV 91.1, MCH 30.4, MCHC 33.4, RDW 13.7, Plt Count 232, MPV 9.8, Neut % (Auto) 79.7, Lymph % (Auto) 7.7 L, [place] % (Auto) 7.6, Eos % (Auto) 4.4, Baso % (Auto) 0.3, Neut # (Auto) 4.9, Lymph # (Auto) 0.5 L, [place] # (Auto) 0.5, Eos # (Auto) 0.3, Baso # (Auto) 0.0, Total Counted 100, Neutrophils % (Manual) 75, Lymphocytes % (Manual) 11, Monocytes % (Manual) 9, Eosinophils % (Manual) 5 H, Platelet Estimate Normal, RBC Morphology Normal, Sodium 138, Potassium 4.1, Chloride 107, Carbon Dioxide 25, Anion Gap 10.1, BUN 26 H, Creatinine 1.70 H, Estimated Creat Clear 49, Est imated GFR 38 L, Est GFR ( Amer) 46 L D, Glucose 177 H, Calcium 8.1 L, Magnesium 2.0, Total Bilirubin 0.5, AST 18 D, ALT 14, Alkaline Phosphatase 69, Total Protein 5.9 L, Albumin 3.6 D, Globulin 2.3, Albumin/Globulin Ratio 1.6 I & O for Last 24 hours: Intake & Output 12/20/24 12/21/24 12/22/24 12/23/24 23:59 23:59 23:59 23:59 Intake Total 270 / 390 620 / 620 Output Total 0 / 0 0 / 0 Balance 270 / 390 620 / 620 Weight 111.272 kg 112.128 kg Constitutional Constitutional: no acute distress *Routine HEENT Exam Head: Present normocephalic Eye: Present EOMI and PERRL ENT: Present mucous membranes moist *Routine Neck Exam Neck: Present supple; Absent lymphadenopathy *Routine Respiratory Exam Respiratory: Present CTA bilaterally *Routine Cardiovascular Exam Cardiovascular: Present RRR *Routine Abdominal Exam Abdominal: Present soft and normoactive bowel sounds; Absent tenderness *Routine Extremities Exam Extremities: Absent cyanosis, clubbing or edema *Routine Skin Exam Skin: Present warm; Absent rash *Routine Neurological Exam Neurological: Present alert and oriented X3 Results Data Completed and Pending Labs on day of discharge: Labs from last 24 hours 12/23/24 12/22/24 12/22/24 06:02 18:18 16:58 WBC 6.2 RBC 4.47 L Hgb 13.6 L Hct 40.7 L MCV 91.1 MCH 30.4 MCHC 33.4 RDW 13.7 Plt Count 232 MPV 9.8 Neut % (Auto) 79.7 Lymph % (Auto) 7.7 L [place] % (Auto) 7.6 Eos % (Auto) 4.4 Baso % (Auto) 0.3 Neut # (Auto) 4.9 Lymph # (Auto) 0.5 L [place] # (Auto) 0.5 Eos # (Auto) 0.3 Baso # (Auto) 0.0 Total Counted 100 Neutrophils % (Manual) 75 Lymphocytes % (Manual) 11 Monocytes % (Manual) 9 Eosinophils % (Manual) 5 H Platelet Estimate Normal RBC Morphology Normal PT INR APTT Sodium 138 Potassium 4.1 Chloride 107 Carbon Dioxide 25 Anion Gap 10.1 BUN 26 H Creatinine 1.70 H Estimated Creat Clear 49 Estimated GFR 38 L Est GFR ( Amer) 46 L D Glucose 177 H POC Glucose 128 H Calcium 8.1 L Magnesium 2.0 Total Bilirubin 0.5 AST 18 D ALT 14 Alkaline Phosphatase 69 Troponin I < 0.01 Total Protein 5.9 L Albumin 3.6 D Globulin 2.3 Albumin/Globulin Ratio 1.6 Triglycerides Cholesterol LDL Cholesterol Direct VLDL Cholesterol HDL Cholesterol Cholesterol/HDL Ratio Urine Color Urine Appearance Urine pH Ur Specific [place] Urine Protein Urine Glucose (UA) Urine Ketones Urine Blood Urine Nitrate Urine Bilirubin Urine Urobilinogen Ur Leukocyte Esterase Urine RBC Urine WBC Ur Squamous Epith Cells Urine Bacteria Urine Opiates Screen Urine Methadone Screen Ur Barbituates Screen Ur Phencyclidine Scrn Ur Amphetamines Screen U Benzodiazepines Scrn Urine Cocaine Screen U Marijuana (THC) Screen Plasma/Serum Alcohol 12/22/24 12/22/24 12/22/24 15:40 13:47 12:18 WBC 5.8 RBC 4.88 Hgb 14.8 Hct 45.3 MCV 92.8 MCH 30.3 MCHC 32.7 RDW 13.7 Plt Count 243 MPV 9.6 Neut % (Auto) 71.8 Lymph % (Auto) 15.2 [place] % (Auto) 8.3 Eos % (Auto) 4.1 Baso % (Auto) 0.3 Neut # (Auto) 4.2 Lymph # (Auto) 0.9 [place] # (Auto) 0.5 Eos # (Auto) 0.2 Baso # (Auto) 0.0 Total Counted Neutrophils % (Manual) Lymphocytes % (Manual) Monocytes % (Manual) Eosinophils % (Manual) Platelet Estimate RBC Morphology PT 10.8 INR 0.97 APTT 25.1 Sodium 138 Potassium 4.6 Chloride 104 Carbon Dioxide 29 Anion Gap 9.6 BUN 29 H Creatinine 2.10 H Estimated Creat Clear 40 Estimated GFR 30 L Est GFR ( Amer) 36 L Glucose 193 H POC Glucose Calcium 8.4 Magnesium Total Bilirubin 0.6 AST 25 ALT 17 Alkaline Phosphatase 69 Troponin I < 0.01 < 0.01 Total Protein 6.8 Albumin 4.2 Globulin 2.6 Albumin/Globulin Ratio 1.6 Triglycerides 269 H Cholesterol 129 L LDL Cholesterol Direct 73.04 L VLDL Cholesterol 54 H HDL Cholesterol 24 L Cholesterol/HDL Ratio 5.4 H Urine Color Yellow Urine Appearance Clear Urine pH 6.0 Ur Specific [place] 1.010 Urine Protein Negative Urine Glucose (UA) 3+ Urine Ketones Negative Urine Blood Negative Urine Nitrate Negative Urine Bilirubin Negative Urine Urobilinogen 0.2 Ur Leukocyte Esterase Negative Urine RBC None Urine WBC None Ur Squamous Epith Cells Occasional Urine Bacteria Trace Urine Opiates Screen Negative Urine Methadone Screen Negative Ur Barbituates Screen Negative Ur Phencyclidine Scrn Negative Ur Amphetamines Screen Negative U Benzodiazepines Scrn Negative Urine Cocaine Screen Negative U Marijuana (THC) Screen Negative Plasma/Serum Alcohol < 10 DS: Diagnosis Discharge Diagnosis (1) TIA (transient ischemic attack): Status: Acute Code(s): G45.9 - Transient cerebral ischemic attack, unspecified (2) Dizziness: Status: Acute Code(s): R42 - Dizziness and giddiness (3) CKD (chronic kidney disease): Status: Acute Code(s): N18.9 - Chronic kidney disease, unspecified Qualifiers: Chronic kidney disease stage: unspecified stage Qualified Code(s): N18.9 - Chronic kidney disease, unspecified (4) Hyperglycemia: Status: Acute Code(s): R73.9 - Hyperglycemia, unspecified (5) Hyperlipidemia: Status: Acute Code(s): E78.5 - Hyperlipidemia, unspecified Qualifiers: Hyperlipidemia type: unspecified Qualified Code(s): E78.5 - Hyperlipidemia, unspecified Meds Home Medications and Allergies Home Medications ?Medication ?Instructions ?Recorded ?Confirmed ?Type tiotropium bromide 2.5 2 inh inhalation DAILY 09/08/19 12/22/24 History mcg/actuation mist for inhalation (Spiriva Respimat) rosuvastatin 20 mg tablet 20 mg PO HS 06/26/20 12/22/24 History omeprazole 20 mg capsule,delayed 20 mg PO HS 10/17/20 12/22/24 History release vilazodone 40 mg tablet 40 mg PO DAILY 12/24/21 12/22/24 History clopidogrel 75 mg tablet 75 mg PO DAILY 01/01/23 12/22/24 History cholecalciferol (vitamin D3) 125 125 mcg PO DAILY 09/08/23 12/22/24 History mcg (5,000 unit) capsule empagliflozin 10 mg tablet 5 mg (1/2 x 10 mg) PO DAILY #90 07/18/24 12/22/24 Rx (Jardiance) tabs bisoprolol fumarate 5 mg tablet 2.5 mg (1/2 x 5 mg) PO DAILY 90 12/01/24 12/22/24 Rx days #45 tabs insulin aspart U-100 100 unit/mL 0 sliding scale dose SQ DIRECTED 12/19/24 12/22/24 History (3 mL) subcutaneous pen (Novolog FlexPen U-100 Insulin aspart) insulin glargine 100 unit/mL (3 24 unit SQ DAILY Diabetes 12/19/24 12/22/24 History mL) subcutaneous pen (Lantus Solostar U-100 Insulin) levocetirizine 5 mg tablet 5 mg PO DAILY #30 tabs 12/19/24 12/22/24 Rx cyanocobalamin (vitamin B-12) 5,000 mcg sublingual Q48H 12/22/24 12/22/24 History 5,000 mcg sublingual tablet fluticasone propionate 50 1 spray intranasal BID 12/22/24 12/22/24 History mcg/actuation nasal spray,suspension insulin aspart U-100 100 unit/mL 0 unit SQ TIDWMEAL 12/22/24 12/22/24 History (3 mL) subcutaneous pen (Novolog FlexPen U-100 Insulin aspart) New Prescriptions to Start Prescriptions: Allergies Allergy/AdvReac Type Severity Reaction Status Date / Time No Known Allergies Allergy Verified 12/19/24 15:32 Discharge Plan Disposition Patient Disposition: Home, Self-Care Condition: Fair Follow up Plan Prescriptions/Medication Reconciliation: Continued rosuvastatin 20 mg tablet 20 mg PO HS clopidogrel 75 mg tablet 75 mg PO DAILY insulin aspart U-100 [Novolog FlexPen U-100 Insulin] 100 unit/mL (3 mL) insulin pen 0 sliding scale dose SQ DIRECTED Rx Instructions: sliding scale protocol insulin glargine [Lantus Solostar U-100 Insulin] 100 unit/mL (3 mL) insulin pen 24 unit SQ DAILY Patient Comments: INJECT 20 UNITS SUBCUTANEOUSLY ONCE DAILY IN THE MORNING Jardiance 10 mg tablet 5 mg PO DAILY Qty: 90 3RF levocetirizine 5 mg tablet 5 mg PO DAILY Qty: 30 4RF Spiriva Respimat 2.5 mcg/actuation mist 2 inh INHALATION DAILY cholecalciferol (vitamin D3) 125 mcg (5,000 unit) capsule 125 mcg PO DAILY bisoprolol fumarate 5 mg tablet 2.5 mg PO DAILY 90 Days Qty: 45 3RF omeprazole 20 mg capsule,delayed release(DR/EC) 20 mg PO HS Patient Comments: vilazodone 40 mg tablet 40 mg PO DAILY Rx Instructions: must administer with a meal/food fluticasone propionate 50 mcg/actuation [place],Suspension 1 spray INTRANASAL BID Rx Instructions: administer into each nostril insulin aspart U-100 [Novolog FlexPen U-100 Insulin] 100 unit/mL (3 mL) insulin pen 0 unit SQ TIDWMEAL Rx Instructions: 12 units with breakfast and lunch, 10 units with dinner cyanocobalamin (vitamin B-12) 5,000 mcg Tablet, Sublingual 5,000 mcg SUBLINGUAL Q48H Problem Reconciliation Problems Reviewed?: Yes Patient Discharge Instructions Patient Instructions: DI for Transient Ischemic Attack Print Language: Latvian Providers Primary Care Provider: Provider,Referral Admit Provider: Alfred Abdi Attending Provider: Pascual Joaquin
--- NOTE | 2024-12-23 11:53 | PC.NURSE ---
Report called to nurse Martinez at [facility].
--- NOTE | 2024-12-27 14:36 | CARE MANAGER ---
Called and spoke with patient regarding recent discharge. Patient states that he is doing well and had no concerns at time of call. He resides in the [facility].
== END 2024-12-23 12:08 | disposition home or self-care (01) ==
LOC: ER 12:34 → 2ND 14:18
PROVIDERS: Nurse Practitioner; Admitting Provider Internal Medicine Adolescent Medicine; Emergency Provider Emergency Medicine; Visit Provider Student in an Organized Health Care Education/Training Program
DX: H53.9 Unspecified visual disturbance (principal); R42 Dizziness and giddiness; N18.9 Chronic kidney disease, unspecified; I25.10 Atherosclerotic heart disease of native coronary artery without angina pectoris; E11.65 Type 2 diabetes mellitus with hyperglycemia; J44.9 Chronic obstructive pulmonary disease, unspecified; E11.22 Type 2 diabetes mellitus with diabetic chronic kidney disease; I48.0 Paroxysmal atrial fibrillation; K21.9 Gastro-esophageal reflux disease without esophagitis; Z90.49 Acquired absence of other specified parts of digestive tract; Z90.79 Acquired absence of other genital organ(s); Z79.4 Long term (current) use of insulin; Z79.51 Long term (current) use of inhaled steroids; Z79.899 Other long term (current) drug therapy; Z79.02 Long term (current) use of antithrombotics/antiplatelets; Z79.84 Long term (current) use of oral hypoglycemic drugs; Z95.818 Presence of other cardiac implants and grafts; Z91.81 History of falling; Z86.73 Personal history of transient ischemic attack (TIA), and cerebral infarction without residual deficits; Z99.89 Dependence on other enabling machines and devices; Z85.828 Personal history of other malignant neoplasm of skin
CPT/HCPCS: 36415; 70450; 70496; 70498; 70551; 71045; 80053; 80061; 80307; 80320; 81001; 82962; 83735; 84484; 85007; 85025; 85027; 85610; 85730; 93005; 93306; 97162; 97166; 99285; G0378; J1650; J7030; Q9957; Q9967

== ENCOUNTER 2025-01-23 15:51 | Outpatient (CLI) | payer MEDICARE, OTHER, SELFPAY ==
--- OUTSIDE RECORDS SUMMARY | 2023-11-06 07:36 | XMS_ITS | Continuity of Care Document ---
Author Organization [address] Address [address] [facility] [address] [place] [address] Phone Care Team Providers Care Snuff Grinder Name Role Phone Traci Rosaura BARRIOS Unavailable Unavaila ble Advance Directives Directive Yes / No Effective Date File Name No Information Encounters Encounter Description Practice Location Reason(s) For Visit Diagnoses Date Provider Providers Copied on Encounter [address] [place] [address], [address] [facility] [address], [place], [id number], tel:[phone] [address] [facility] No Information Nov-0 4 Traci Kaplan. [address] [facility] [address], [place], [place], [id number], . tel:[phone] Family History Family Member Type Diagnosis Age At Onset No Information Payers Payer name Insurance type Covered alliance party ID Authoriza tion(s) No Information Social History Type Description Quantity Date Captured Comments Sex Male Smoking Status No Information Chief Complaint And Reason For Visit No Information Reason For Referral Reason For Referral No Information History Of Present Illness Encounter Date Complaint History Of Prese nt Illness No Information Functional Status Date Functional Assessmen t No Information Instructions Date Instruction Additional Infor mation No Information Assessments Type Assessment Date No Information Patient Care Teams Name Effective Dates (start - stop) Status Members No Information
--- OUTSIDE RECORDS SUMMARY | 2025-01-23 15:55 | XMS_ITS | Encounter Summary ---
Author Organization [employer] Address [address] [place] [address] Care Team Providers Care Garde Manager Name Role Phone Alfredo Aguiar MD Primary Care Provider + [phone] Alfredo Aguiar MD Primary Care Provider + [phone] Encounter Details Date Type Department Care Team (Late st Contact Info) Description 08/17/2019 Transcribed Document [facility] [facility] [address] ProviderEryn MD [address] [place] [address] [id number] Social History Tobacco Use Types Packs/Day Years Used Date Smoking Tobacco: Never Assessed Sex and Gender Information Value Date Recorded Sex Assigned at Not on file Legal Sex Male 5:45 PM CDT Gender Identity Not on file Sexual Orientation Not on file documented as of this encounter Miscellaneous Notes * Cerner Conversion Note - Eryn ProviderMD - 08/17/2019 6:35 PM BENCH EXAMINER Pain Assessment Entered On: 08/19/2019 1:41 EST Performed On: 08/18/2019 22:18 EST by Jess Reno Intervention Information: oxyCODONE Performed by Jess Reno on 08/18/2019 21:18:00 EST oxyCODONE,5mg Oral,Pain (Moderate 4-6) Pain Assessment Pain Assessment : Initial assessment Pain Scale Goal : 4 Pain Scale Used : 0-10 Scale Jess Reno - 08/19/2019 1:41 EST Pain Scale Intensity : 3 Jess Reno - 08/19/2019 1:41 EST Image 4 - Images currently included in the form version of this document have not been included in the text rendition version of the form. Electronically signed by [place], [facility] Conversion Vp Of [employer] Cerner at 11/23/2022 1:09 PM CDT documented in this encounter Plan of Treatment Not on file documented as of this encounter Visit Diagnoses Not on filedocumented in this encounter Care Teams Garde Manager Relationship Specialty Start Date End Date Alfredo Aguiar MD [address] [place] [id number] PCP - General Adolescent Medicine 10/16/22 10/19/22 Alfredo Aguiar MD [address] [place] [address] PCP - General Adolescent Medicine 10/20/22 documented as of this encounter
--- OUTSIDE RECORDS SUMMARY | 2025-01-23 15:55 | XMS_ITS | Encounter Summary ---
Author Organization [employer] Address [address] [place] [address] Care Team Providers Care Wheat Combine Driver Name Role Phone Alfredo Aguiar MD Primary Care Provider + [phone] Alfredo Aguiar MD Primary Care Provider + [phone] Encounter Details Date Type Department Care Team (Late st Contact Info) Description 08/18/2019 Transcribed Document [facility] [place] [address] [place] [address] ProviderEryn MD [address] [place], [place] [address] Social History Tobacco Use Types Packs/Day Years Used Date Smoking Tobacco: Never Assessed Sex and Gender Information Value Date Recorded Sex Assigned at Not on file Legal Sex Male 5:45 PM CDT Gender Identity Not on file Sexual Orientation Not on file documented as of this encounter Miscellaneous Notes * Cerner Conversion Note - Eryn ProviderMD - 08/18/2019 6:00 AM 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 AND 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 documented in this encounter Plan of Treatment Not on file documented as of this encounter Visit Diagnoses Not on filedocumented in this encounter Care Teams Wheat Combine Driver Relationship Specialty Start Date End Date Alfredo Aguiar MD [address] [place] [address] PCP - General Adolescent Medicine 10/16/22 10/19/22 Alfredo Aguiar MD [address] [place] [id number] PCP - General Adolescent Medicine 10/20/22 documented as of this encounter
--- OUTSIDE RECORDS SUMMARY | 2025-01-23 15:55 | XMS_ITS | Encounter Summary ---
Author Organization [employer] Address [address] [place] [address] Care Team Providers Care Hand Rug Cleaner Name Role Phone Alfredo Aguiar MD Primary Care Provider + [phone] Alfredo Aguiar MD Primary Care Provider + [phone] Encounter Details Date Type Department Care Team (Late st Contact Info) Description 05/20/2019 Transcribed Document [facility] [place] [facility] [place] [address] ProviderEryn MD [address] [place] [id number] Social History Tobacco Use Types Packs/Day Years Used Date Smoking Tobacco: Never Assessed Sex and Gender Information Value Date Recorded Sex Assigned at Not on file Legal Sex Male 5:45 PM CDT Gender Identity Not on file Sexual Orientation Not on file documented as of this encounter Miscellaneous Notes * Cerner Conversion Note - Eryn Arcos MD - 05/20/2019 4:51 PM CDT Evaluation, Physical Therapy Entered On: 05/21/2019 8:46 EDT Performed On: 05/21/2019 8:37 EDT by Ian Devi PHYSICAL THERAPIST General Information, PT Visit Type, PT : Initial evaluation Patient Orders : Order Date Order Ordering 05/20/2019 16:52 PT Evaluation and Treatment Ordered By: LION DAVIS MD-ORElizabeth 05/20/2019 16:52 PT Treatment Instructions Ordered By: LION DAVIS MD-ORT 05/20/2019 16:52 PT Treatment Instructions Ordered By: LION DAVIS MD-ORT 05/20/2019 16:52 PT Treatment Instructions Ordered By: LION DAVIS MD-ORT 05/20/2019 16:52 PT Treatment Instructions Ordered By: LION DAVIS MD-ORT Active Diagnoses : No Qualifying Diagnoses Admission Date : 05/20/2019 06:54 Personal Devices : Personal Devices Glasses Assistive Devices : Assistive Devices No Devices Recorded Precautions in Place : Fall prevention measures Ian Devi PHYSICAL THERAPIST - 05/21/2019 8:37 EDT General Status Patient Received Status : Supine in bed Treatment Start Time : 05/21/2019 8:06 EDT Patient Left Status : Up in chair, RN/PCT informed, Family/Visitors at bedside, All needs met and within reach RN/PCT Informed Comment : Nurse Brittney Amezcua Treatment End Time : 05/21/2019 8:36 EDT Treatment Time : 30 Minute(s) Actual Treatment Time : 30 Minute(s) Ian Devi PHYSICAL THERAPIST - 05/21/2019 8:37 EDT History and Environment Living Situation, Therapy : Home Patient Lives With : Spouse Persons Assisting Patient at Home : Spouse Home Equipment Therapy, PT : Walker, Other: Rails in Shower Home Setup : Two story Laundry Room Location : Main level Bedroom Location : Main level Bathroom #1 Location : Main level Bathroom #1 Features : Toilet, Tub/Shower, Walk-In shower Ian Devi PHYSICAL THERAPIST - 05/21/2019 8:37 EDT Prior Level of Function PT GRID Prior LOF Ambulation, Household : Independent Prior LOF Ambulation, Community : Independent Prior LOF Bed Mobility : Independent Prior LOF Toileting : Independent Prior LOF Transfer : Independent Ian Devi PHYSICAL THERAPIST - 05/21/2019 8:37 EDT Prior LOF Assist with ADL Comment : Prior to Left TKA and subsequent Sx due to infection he was Indep mobility, used cane for community mabulation, Self peg driver. 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 Medical HX includes [place] of Hearing, DM II, Chronic cough, asthma and sleep apnea Ian Devi PHYSICAL THERAPIST - 05/21/2019 8:37 EDT Upper Extremity Right UE Active ROM : WFL Right UE Strength : WFL Left UE Active ROM : WFL Left UE Strength : WFL Ian Devi PHYSICAL THERAPIST - 05/21/2019 8:37 EDT Lower Extremity RLE Active ROM : WFL Right LE Strength : WFL LLE Active ROM : Impaired Left LE Strength : Impaired Lower Extremity Comment : Left lhipa nd ankle ROM WFL, Knee in immobilizer and no ROM per orders. Hip strength 2+/5 ankle 3+/5 Ian Devi PHYSICAL THERAPIST - 05/21/2019 8:37 EDT Functional Mobility Mobility Grid Supine to Sit : Rehab Moderate assistance Sit to Stand : Rehab Moderate assistance Bed to Chair : Rehab Minimal assistance Stand to Sit : Rehab Minimal assistance Ian Devi PHYSICAL THERAPIST - 05/21/2019 8:37 EDT Gait Training/Assessment, PT Weight Bearing Status Maintained : Yes Weight Bearing Status : Toe touch left Gait Assistance Level : Assist, minimal Walking Distance : 25 feet bed to bathroom, stood after on toilet too tired walk, stand pivot to recliner Ambulatory Devices : Gait belt, Walker, front wheel Gait Deviations : Yes Gait Training Comment : Instructed walker. left foot forward and step too pushing thru arms technique Ian Devi PHYSICAL THERAPIST - 05/21/2019 8:37 EDT Cognition Assessment, PT Orientation : Oriented x 4 Ian Devi PHYSICAL THERAPIST - 05/21/2019 8:37 EDT Edu Topics Physical Therapy Education Grid Bed Mobility Training : Needs further teaching Gait Training : Needs further teaching Role of Physical Therapy : Needs reinforcement Safety : Needs further teaching Therapeutic Exercises : Needs further teaching Transfer Training : Needs further teaching Ian Devi PHYSICAL THERAPIST - 05/21/2019 8:37 EDT Teaching/Learning Assessment Barriers To Learning : None evident Ian Devi PHYSICAL THERAPIST - 05/21/2019 8:37 EDT Indication Assesessment, PT Physical Therapy Indicated : Yes Ian Devi PHYSICAL THERAPIST - 05/21/2019 8:37 EDT Plan of Care, PT PT Tx Plan/Goals Established w Patient : Yes PT Frequency Rehab : Daily PT Treatments Planned : Bed mobility training, Gait training, Safety education, Therapeutic exercises, Transfer training Ian Devi PHYSICAL THERAPIST - 05/21/2019 8:37 EDT Short Term Goals Ambulation STG Grid Goal #1 Device : Walker, front wheel Distance : 75 feet TTWN Left Assist : Supervision or set-up Date to Meet : 05/24/2019 EDT Goal Status : Intial Goal Ian Devi PHYSICAL THERAPIST - 05/21/2019 8:37 EDT Procurement Forester Goals Mobility/Bed Mobility LTG PT Grid Goal #1 Activity : Supine to sit Assist : Independent, modified Date to Meet : 06/04/2019 EDT Goal Status : Intial Goal Ian Devi PHYSICAL THERAPIST - 05/21/2019 8:37 EDT Ambulation LTG Grid Goal #1 Device : Walker, front wheel Distance : 150 feet TTWB Left Cues : No cues Assist : Supervision or set-up Date to Meet : 06/04/2019 EDT Ian Devi PHYSICAL THERAPIST - 05/21/2019 8:37 EDT Treatment Note Subjective Comment : Patient agreable work with therapy, WOuld liek to go to restroom Assessment : Patient fatigued at end of gait, and remained fatigued after restroom. Resting comfortable up in recliner feet elevated Plan for Treatment : pe rpOC Ian Devi PHYSICAL THERAPIST - 05/21/2019 8:37 EDT Pain Assessment Pain Scaled Used : 0-10 Pain scale Duration : 4 Location : Knee, left Ian Devi PHYSICAL THERAPIST - 05/21/2019 8:37 EDT Image 1 - Images currently included in the form version of this document have not been included in the text rendition version of the form. Anticipated Discharge Needs, OT/PT Anticipated Discharge to : Unit, rehabilitation Recommend Continued Therapy at Discharge : Yes Ian Devi PHYSICAL THERAPIST - 05/21/2019 8:37 EDT Narciso Pena PT Charges Gait Training Each 15 Min : 1 PT Eval Low Complexity : 1 Ian Devi PHYSICAL THERAPIST - 05/21/2019 8:37 EDT documented in this encounter Plan of Treatment Not on file documented as of this encounter Visit Diagnoses Not on filedocumented in this encounter Care Teams Hand Rug Cleaner Relationship Specialty Start Date End Date Alfredo Aguiar MD [address] [place] [address] PCP - General Adolescent Medicine 10/16/22 10/19/22 Alfredo Aguiar MD [address] [place] [address] PCP - General Adolescent Medicine 10/20/22 documented as of this encounter
--- OUTSIDE RECORDS SUMMARY | 2025-01-23 15:55 | XMS_ITS | Encounter Summary ---
Author Organization [employer] Address [address] [place] [address] Care Team Providers Care Fingernail Sculptor Name Role Phone Alfredo Aguiar MD Primary Care Provider + [phone] Alfredo Aguiar MD Primary Care Provider + [phone] Encounter Details Date Type Department Care Team (Late st Contact Info) Description 05/20/2019 Transcribed Document [facility] [place] [address] ProviderEryn MD [address] [place] [id number] Social History Tobacco Use Types Packs/Day Years Used Date Smoking Tobacco: Never Assessed Sex and Gender Information Value Date Recorded Sex Assigned at Not on file Legal Sex Male 5:45 PM CDT Gender Identity Not on file Sexual Orientation Not on file documented as of this encounter Miscellaneous Notes * Cerner Conversion Note - Eryn Arcos MD - 05/20/2019 2:15 PM CDT [facility] Main OR PACU Summary Primary Physician: LION DAVIS MD-ORT Finalized Date/Time: 05/20/19 19:06:07 Pt. Name: LORA JAIN JR/Sex: 1940 Male Med Rec #: [id number] Physician: LION DAVIS MD-ORT Financial #: [id number] Pt. Type: I Room/Bed: ASA/2 Admit/Disch: 05/20/19 06:54:00 - Institution: [facility] Main OR PACU I Case Times Entry 1 In PACU I 05/20/19 16:57:00 Ready for PACU 05/20/19 18:30:00 Discharge Discharge from PACU 05/20/19 19:03:00 I Last Modified By: Betty Vaz RN 05/20/19 19:04:04 [facility] Main OR PACU Acuity Entry 1 Start Time 05/20/19 18:30:00 Stop Time 05/20/19 19:03:00 Acuity Level [facility] PACU Acuity I Last Modified By: Betty Vaz RN 05/20/19 19:06:05 Finalized By: Betty Vaz RN Document Signatures Signed By: Betty Vaz RN 05/20/19 19:06 Electronically signed by [facility] Conversion Outdoor Guide Cerner at 11/18/2022 9:13 AM CDT documented in this encounter Plan of Treatment Not on file documented as of this encounter Visit Diagnoses Not on filedocumented in this encounter Care Teams Fingernail Sculptor Relationship Specialty Start Date End Date Alfredo Aguiar MD [address] [place] [address] PCP - General Adolescent Medicine 10/16/22 10/19/22 Alfredo Aguiar MD [address] [place] [address] PCP - General Adolescent Medicine 10/20/22 documented as of this encounter
--- OUTSIDE RECORDS SUMMARY | 2025-01-23 15:55 | XMS_ITS | Encounter Summary ---
Author Organization [employer] Address [address] [facility] [place] [address] Care Team Providers Care Fashion Coordinator Name Role Phone Alfredo Aguiar MD Primary Care Provider + [phone] Alfredo Aguiar MD Primary Care Provider + [phone] Encounter Details Date Type Department Care Team (Late st Contact Info) Description 05/20/2019 Transcribed Document [address] [id number] Lion lAlison MD [address] [place] [address] Social History Tobacco Use Types Packs/Day Years Used Date Smoking Tobacco: Never Assessed Sex and Gender Information Value Date Recorded Sex Assigned at Not on file Legal Sex Male 5:45 PM CDT Gender Identity Not on file Sexual Orientation Not on file documented as of this encounter Miscellaneous Notes * Cerner Conversion Note - Lion Allison MD - 05/20/2019 5:57 PM EDT Patient: LORA JAIN JR Age: 78 years Sex: Male : 1940 Associated Diagnoses: None Author: LION ALLISON MD-ORT Pre-op Dx: infected L TKA Post-op: same Procedure: explant/spacer L TKA Surg: Keegan Asst: Dhruv Anesthesia: gETA EBL: 200 Complications: none Dispo: pacu Findings: prox tibial bone loss, used metal baseplate w/ 100 mm stem to bypass documented in this encounter Plan of Treatment Not on file documented as of this encounter Visit Diagnoses Not on filedocumented in this encounter Care Teams Fashion Coordinator Relationship Specialty Start Date End Date Alfredo Aguiar MD [address] [place] [address] PCP - General Adolescent Medicine 10/16/22 10/19/22 Alfredo Aguiar MD [address] [place] [address] PCP - General Adolescent Medicine 10/20/22 documented as of this encounter
--- OUTSIDE RECORDS SUMMARY | 2025-01-23 15:55 | XMS_ITS | Encounter Summary ---
Author Organization [employer] In [employer] Address [address] [place] [address] Care Team Providers Care Cold Reduction Roller Name Role Phone Alfredo Aguiar MD Primary Care Provider + [phone] Alfredo Aguiar MD Primary Care Provider + [phone] Encounter Details Date Type Department Care Team (Late st Contact Info) Description 05/20/2019 Transcribed Document [facility] [place] [address] ProviderEryn MD [address] [place] [id number] Social History Tobacco Use Types Packs/Day Years Used Date Smoking Tobacco: Never Assessed Sex and Gender Information Value Date Recorded Sex Assigned at Not on file Legal Sex Male 5:45 PM CDT Gender Identity Not on file Sexual Orientation Not on file documented as of this encounter Miscellaneous Notes * Cerner Conversion Note - Eryn Arcos MD - 05/20/2019 4:51 PM CDT Evaluation, Occupational Therapy Entered On: 05/22/2019 11:48 EDT Performed On: 05/22/2019 10:00 EDT by LYNDSAY GARZA OTR/Jacobo General Information, OT Therapy Diagnosis, OT : Decreased I/ADL status; functional mobility Onset of Problem, OT : 05/20/2019 EDT Co-treated by, OT : Physical Therapist Sensory Deficits, Rehab : Hearing deficit, left ear, Hearing deficit, right ear General Information Comment, OT : Patient presents with infected left TKA. Pt had spacer and beads implanted. Pt also had bone loss at proximal tibia and had bone plate inserted. Pt is TDWB LLE and needs KI on at all times. LYNDSAY GARZA OTR/L - 05/22/2019 12:32 EDT Visit Type, OT : Initial evaluation LYNDSAY GARZA OTR/L - 05/22/2019 11:47 EDT Patient Orders : Order Date Order Ordering 05/20/2019 16:52 OT Evaluation and Treatment Ordered By: LION DAVIS MD-ORT Active Diagnoses : 05/22/2019 12:00 Acute kidney failure, unspecified 05/22/2019 12:00 Hypo-osmolality and hyponatremia 05/21/2019 12:00 Encounter for fitting and adjustment of unspecified external prosthetic device 05/21/2019 12:00 Gastro-esophageal reflux disease without esophagitis 05/21/2019 12:00 Malignant neoplasm of prostate 05/21/2019 12:00 Type 2 diabetes mellitus with hyperglycemia 05/21/2019 12:00 Unspecified asthma, uncomplicated 05/21/2019 12:00 Unspecified maternal hypertension, unspecified trimester Admission Date : 05/20/2019 06:54 Personal Devices : Personal Devices Glasses Assistive Devices : Assistive Devices No Devices Recorded LYNDSAY GARZA OTR/L - 05/22/2019 12:[address] : Fall prevention measures, Other: TDWB LLE and KI on at all times LYNDSAY GARZA OTR/L - 05/22/2019 12:32 EDT General Status Patient Received Status : Supine in bed Treatment Start Time : 05/22/2019 9:40 EDT Patient Left Status : Up in chair, Chair alarm activated, All needs met and within reach Treatment End Time : 05/22/2019 10:00 EDT Treatment Time : 20 Minute(s) LYNDSAY GARZA OTR/L - 05/22/2019 12:32 EDT History and Environment, OT Living Situation, Therapy : Home Patient Lives With : Spouse Persons Assisting Patient at Home : Spouse Home Setup : Two story Laundry Room Location : Main level Bedroom Location : Main level Bathroom #1 Location : Main level Bathroom #1 Features : Toilet, Tub/Shower, Walk-In shower Stairs : No LYNDSAY GARZA OTR/L - 05/22/2019 12:32 EDT Prior LOF Bathing, OT : Independent Prior LOF Bed Mobility : Independent Prior LOF Upper Body Dressing, OT : Independent Prior LOF Lower Body Dressing, OT : Independent Prior LOF Toileting : Independent Prior LOF Transfer : Independent Prior LOF Grooming, OT : Independent Prior LOF for IADLs, OT : Independent LYNDSAY GARZA OTR/L 05/22/2019 12:32 EDT Upper Extremity Right UE Active ROM : WFL Right UE Strength : WFL Left UE Active ROM : WFL Left UE Strength : WFL Upper Extremity Strength Impaired : No Right UE Strength : WFL Left UE Strength : WFL LYNDSAY GARZA OTR/L - 05/22/2019 12:32 EDT Self Care/Home Management, OT Self Feeding Assist Level, OT : Independent, complete Grooming Assist Level, OT : Independent, complete Bathing Assist Level, OT : Assist, moderate Upper Body Dressing Assist Level, OT : Independent, complete Lower Body Dressing Assist Level, OT : Assist, maximal Toileting Assist Level : Assist, moderate Toilet Transfer Assist Level : Assist, minimal LYNDSAY GARZA OTR/L 05/22/2019 12:32 EDT Functional Mobility Mobility Grid Bed Roll Left : Rehab Minimal assistance Bed Roll Right : Rehab Minimal assistance Supine to Sit : Rehab Moderate assistance Sit to Stand : Rehab Minimal assistance Bed to Chair : Rehab Minimal assistance Stand to Sit : Rehab Minimal assistance LYNDSAY GARZA OTR/L 05/22/2019 12:32 EDT Bed Comment : x2 LYNDSAY GAZRA OTR/Jacobo - 05/22/2019 12:32 EDT Cognition Assessment, OT Orientation : Oriented x 4 Cognition Assessment, OT : Intact Comprehension Assessment, OT : Intact LYNDSAY GARZA OTR/Jacobo - 05/22/2019 12:32 EDT Indication Assessment, OT Occupational Therapy Indicated : Yes Problem List, OT : Impaired, bed mobility, Impaired, activities daily living, Impaired, endurance tolerance, Impaired functional mobility, Impaired, standing balance, Impaired, strength, Impaired, transfers, Pain limiting function Potential Barriers, OT : Acuity of illness, Pain LYNDSAY GARZA OTR/Jacobo 05/22/2019 12:32 EDT Plan of Care, OT OT Tx Plan/Goals Established w Patient : Yes OT Frequency Rehab : Five days per week OT Duration Rehab : Fourteen days OT Treatments Planned : Activities of daily living, Balance training, Functional mobility training, Safety education, Therapeutic activities, Therapeutic exercises Plan of Care Comment, OT : see goals LYNDSAY GARZA OTR/Jacobo 05/22/2019 12:32 EDT Renewals Specialist Goals, OT Dressing, Lower Body LTG Grid Goal #1 Activity : Dressing, Lower Body Assist : Assist, moderate Date to Meet : 06/05/2019 EDT Goal Status : Initial goal LYNDSAY GARZA OTR/Jacobo - 05/22/2019 12:32 EDT Toileting LTG Grid Goal #1 Activity : Toileting Assist : Assist, minimal Date to Meet : 06/05/2019 EDT Goal Status : Initial goal LYNDSAY GARZA OTR/Jacobo 05/22/2019 12:32 EDT Toilet Transfer LTG Grid Goal #1 Activity : Toilet Transfer, Ambulatory Assist : Supervision or set up Date to Meet : 06/05/2019 EDT Goal Status : Initial goal Comment : TDWB LLE LYNDSAY GARZA OTR/Jacobo 05/22/2019 12:32 EDT Bed Mobility/ Bed Transfer LTG Grid Goal #1 Activity : Bed Mobility/Bed Transfer Assist : Independent, modified Date to Meet : 06/05/2019 EDT Goal Status : Initial goal LYNDSAY GARZA OTR/Jacobo 05/22/2019 12:32 EDT Treatment Note Subjective Comment : Patient and RN okd OT this date. Patient's Response to Treatment : Pt tolerated OT fair. Pt had c/o pain at LLE of 5/10. RN notified and gave meds. Additional Objective Information : Pt supine in bed upon OT arrival. Pt sat EOB with Mod A. Pt educated on TDWB LLE with good understanding demo during transfer. Pt stood at RWx with Min A x2. Pt transferred to chair approx 6 steps with Min A x2. Pt issued AE of plumbing mechanic/long sponge/shoe horn/leg cook camp. Pt was left in chair with call light/phone within reach. Chair alarm activated. Assessment : Pt would benefit from OT to increase functional status. Plan for Treatment : Continue with pts POC per pt tolerance. LYNDSAY GARZA OTR/Jacobo 05/22/2019 12:32 EDT Pain Assessment Pain Scaled Used : 0-10 Pain scale Pain Score Pre-Intervention : 5 Pain Score During-Intervention : 5 Pain Score Post-Intervention. : 5 Location : Leg, left LYNDSAY GARZA NASHR/L - 05/22/2019 12:32 EDT Image 1 - Images currently included in the form version of this document have not been included in the text rendition version of the form. Anticipated Discharge Needs, OT/PT Anticipated Discharge to : Unit, rehabilitation Recommend Continued Therapy at Discharge : Yes LYNDSAY GARZAMARTINA/Jacobo - 05/22/2019 12:32 EDT [place] OT Charges OT Selfcare/Hm Mgmt Ea 15 Min : 1 OT Eval Moderate Complexity : 1 LYNDSAY GARZAMARTINA/Jacobo - 05/22/2019 12:32 EDT documented in this encounter Plan of Treatment Not on file documented as of this encounter Visit Diagnoses Not on filedocumented in this encounter Care Teams Cold Reduction Roller Relationship Specialty Start Date End Date Alfredo Aguiar MD [address] [place] [address] PCP - General Adolescent Medicine 10/16/22 10/19/22 Alfredo Aguiar MD [address] [place] [address] PCP - General Adolescent Medicine 10/20/22 documented as of this encounter
--- OUTSIDE RECORDS SUMMARY | 2025-01-23 15:55 | XMS_ITS | Encounter Summary ---
Author Organization [employer] Address [address] [place] [address] Care Team Providers Care Bingo Clerk Name Role Phone Alfredo Aguiar MD Primary Care Provider + [phone] Alfredo Aguiar MD Primary Care Provider + [phone] Encounter Details Date Type Department Care Team (Late st Contact Info) Description 08/18/2019 Transcribed Document [facility] [place] [facility] [place] [address] ProviderEryn MD [address] [place] [id number] Social History Tobacco Use Types Packs/Day Years Used Date Smoking Tobacco: Never Assessed Sex and Gender Information Value Date Recorded Sex Assigned at Not on file Legal Sex Male 5:45 PM CDT Gender Identity Not on file Sexual Orientation Not on file documented as of this encounter Miscellaneous Notes * Cerner Conversion Note - Eryn ProviderMD - 08/18/2019 2:18 PM SHELL FREEZING MACHINE OPERATOR Initial Discharge Planning Entered On: 08/18/2019 14:25 EST Performed On: 08/18/2019 14:18 EST by JUANY HERNANDEZ RN-Study Specialist Initial Assessment I Previously Documented Living Environment : No qualifying data available. Living Situation : Personal detention Patient Lives With : Spouse, Other: caregivers Is the Patient a Caregiver at Home? : No Emergency Contact #1 : Raysa Escobar Emergency Contact #1 Emergency Contact #1 Relationship : daughter Emergency Contact #2 : Jessa Vázquez Emergency Contact #2 Emergency Contact #2 Relationship : daughter JUANY HERNANDEZ RN-Study Specialist - 08/18/2019 14:18 EST Initial Assessment II Sensory and Motor Deficits : None Current Home Treatments and Equipment : Walker JUANY HERNANDEZ RN-Study Specialist - 08/18/2019 14:18 EST Discharge Needs I Anticipated Discharge Date : 08/20/2019 EST Anticipated Discharge To, CM : [facility]PC facility Current Home Treatment/Equipment : Current Home Treatment/Equipment No qualifying data available. Documentation Status Complete : Yes JUANY HERNANDEZ RN-Study Specialist - 08/18/2019 14:18 EST Discharge Needs II Professional Skilled Services : Professional Skilled Services No qualifying data available. Needs Assistance with Transportation : No Discharge Options Discussed with Patient : Short term rehabilitation JUANY HERNANDEZ RN-Study Specialist - 08/18/2019 14:18 EST Narrative Note Narrative Note : 78yo male pt s/p LTKA replant after explant spacer with LT IV abx for infection. Pt's original surgery was 04/2018 and pt went home with HH. Pt was admitted again for infected knee in 05/2019 and was dc'd to [facility] with IV abx. Since then, pt has been staying in a PC bed at [facility] with [facility] for HH. Met with pt and daughters at bedside this am to discuss DCP. They request rehab at [facility]. Referral sent via [facility] and spoke to liabraydon Epps. She can offer pt a bed. Pt wants to use [facility] for after rehab. Informed liabraydon Rosa, she will follow pt at facility. Family will transport. CM will follow. JUANY HERNANDEZ RN-Study Specialist - 08/18/2019 14:18 EST documented in this encounter Plan of Treatment Not on file documented as of this encounter Visit Diagnoses Not on filedocumented in this encounter Care Teams Bingo Clerk Relationship Specialty Start Date End Date Alfredo Aguiar MD [address] [place] [address] PCP - General Adolescent Medicine 10/16/22 10/19/22 Alfredo Aguiar MD [address] [place] [address] PCP - General Adolescent Medicine 10/20/22 documented as of this encounter
--- OUTSIDE RECORDS SUMMARY | 2025-01-23 15:55 | XMS_ITS | Encounter Summary ---
Author Organization [employer] Address [address] [place] [address] Care Team Providers Care Education Department Chair Name Role Phone Alfredo Aguiar MD Primary Care Provider + [phone] Alfredo Aguiar MD Primary Care Provider + [phone] Encounter Details Date Type Department Care Team (Late st Contact Info) Description 05/18/2019 Transcribed Document [facility] [place] [facility] [place] [address] ProviderEryn MD [address] [place] [id number] Social History Tobacco Use Types Packs/Day Years Used Date Smoking Tobacco: Never Assessed Sex and Gender Information Value Date Recorded Sex Assigned at Not on file Legal Sex Male 5:45 PM CDT Gender Identity Not on file Sexual Orientation Not on file documented as of this encounter Miscellaneous Notes * Cerner Conversion Note - Eryn Arcos MD - 05/18/2019 10:58 AM CDT PAT Adult Entered On: 05/18/2019 11:00 EDT Performed On: 05/18/2019 10:58 EDT by HERMAN LARSEN RN Vital Measurements Temperature Source : Temporal artery scanning Temperature Mode : Fahrenheit Temperature, Fahrenheit : 96.9 Deg F Clinical Temperature, C : 36.1 Deg C Pulse Method : Pulse Oximetry Peripheral Pulse Rate : 63 bpm Respiratory Rate : 18 Breaths/Min Blood Pressure Location : Arm, right upper Blood Pressure Source : Non-Invasive BP Device Blood Pressure Position : Sitting Systolic Blood Pressure : 139 mmHg Diastolic Blood Pressure : 70 mmHg Oxygen Saturation : 99 % Oxygen Therapy Mode : Room air HERMAN LARSEN RN - 05/18/2019 11:48 EDT Pain Assessment Pain Assessment : Initial assessment Pain Scale Goal : 3 HERMAN LARSEN RN - 05/18/2019 11:48 EDT Height and Weight, Clinical Dosing Height Source : Measured Height Entry Format : [place] Height, Feet : 0 ft(Converted to: 0 cm, 0 Inch) Height, Inches : 72 Inch(Converted to: 6 ft 0 Inch, 182.88 cm) Clinical Height : 182.88 cm Weight Source : Standing scale Weight Entry Format : [place] Clinical Dosing Weight : 80.63 kg Weight, Pounds : 177 lb Weight, Ounces : 6 oz Body Surface Area (BSA) : 2.03 m2 Body Mass Index : 24.1 kg/m2 (HI) [place] Body Weight : 77 kg HERMAN LARSEN RN - 05/18/2019 10:58 EDT Health Histories Smoking Status : Never (less than 100 in lifetime; none in last 30 days) Smokeless Tobacco Status : Never HERMAN LARSEN RN - 05/18/2019 11:00 EDT Social History (As Of: 05/18/2019 11:17:01 EDT) Tobacco: Never (less than 100 in lifetime) Smoking Status. Never Smokeless Tobacco Status. Second Hand Smoke Exposure: Yes. 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 Alcohol Use Frequency Rarely. (Last Updated: 03/24/2018 13:52:20 EDT by HERMAN LARSEN RN) Substance Abuse: Drug Use Hx: No. Use in Last 12 Months: No. 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 Within Last 30 Days : No Contact With Traveler to Advisory Region : No Tuberculosis Symptoms : None HERMAN LRASEN RN - 05/18/2019 11:00 EDT Anesthesia/Transfusion History Family History of Anesthesia Reaction : No prior transfusion(s) Blood Transfusion Acceptable to Patient : Yes Transfusion History : Prior anesthesia without reaction Family History of Anesthesia Reaction : None HERMAN LARSEN RN - 05/18/2019 10:58 EDT Advance Directive Patient has Advance Directive *Q : Yes, Advance Directive with the patient Advance Directive Type : Living will Copy Advance Directive Verified/on Chart : No HERMAN LARSEN RN - 05/18/2019 11:00 EDT Spiritual/Cultural Needs Any Spiritual/Cultural Needs or Requests : Yes Spiritual/Cultural Needs Comment : prayer before surgery (05/20/2019 in 0900) Spiritual/Cultural Needs Comment : prayer before surgery (05/20/2019 in 0900) HERMAN LARSEN RN - 05/18/2019 11:00 EDT Psychosocial History Do You Have a History of the Following? : Depression Currently in Unsafe Situation : No Tried to Harm Yourself in the Past? : No Thoughts of Harming/Killing Yourself : No HERMAN LARSEN RN - 05/18/2019 11:00 EDT Teaching/Learning Assessment Barriers To Learning : None evident Individuals Taught : Patient, Spouse Readiness to Learn : Cooperative HERMAN LARSEN RN - 05/18/2019 11:00 EDT Education Topics, Periop Preadmission Perioperative Education Grid Arrival Time/Place : Verbalizes understanding CHG Preoperative Bathing/Cloths : Verbalizes understanding Falls : Verbalizes understanding Infection Control : Verbalizes understanding IV's : Verbalizes understanding NPO Status/Directions : Verbalizes understanding Preprocedure Preparations : Verbalizes understanding Preprocedure Tests/Labs : Verbalizes understanding Take/Hold Medications Pre-Procedure : Verbalizes understanding HERMAN LARSEN RN - 05/18/2019 11:00 EDT General Info Preferred Name : Mele Support Person/Patient Coil Taper : Yes Support Person/Pt Rep Name : Ashli cordova Support Person/Pt Rep Contact Information : Want Family/Rep/Phys Notified of Admit : No Emergency Contact #1 : Ashli Cordova Emergency Contact #1 Emergency Contact #1 Relationship : Emergency Contact #2 : Raysa Escobar Emergency Contact #2 Emergency Contact #2 Relationship : daughter Information Obtained From : Patient Primary Language : Syriac Preferred Communication Mode : Verbal Communication Barrier : None Objects to Sharing Info w Family : No Clinical Trials Participant *Q : None CTP, None *Q : Yes HERMAN LARSEN RN - 05/18/2019 11:00 EDT Jared Scale Jared Sensory Perception : Slightly limited Jared Moisture : Rarely moist Jared Activity : Walks occasionally Jared Mobility : Very limited Jared Nutrition : Adequate Jared Friction and Shear : Potential problem Jared Score : 17 HERMAN LARSEN RN - 05/18/2019 11:00 EDT Sleep Apnea Risk Assmt BiPAP/CPAP Ordered for Home Use : Yes Hx of Obstructive Sleep Apnea Diagnosis : Yes BiPAP/CPAP Used at Home : Yes Age over 50 Years Old : Yes Gender Male : Yes HERMAN LARSEN RN - 05/18/2019 10:58 EDT Electronically signed by [facility] Conversion Children Counselor Cerner at 11/18/2022 9:32 AM CDT documented in this encounter Plan of Treatment Not on file documented as of this encounter Visit Diagnoses Not on filedocumented in this encounter Care Teams Education Department Chair Relationship Specialty Start Date End Date Alfredo Aguiar MD [address] [place] [address] PCP - General Adolescent Medicine 10/16/22 10/19/22 Alfredo Aguiar MD [address] [place] [address] PCP - General Adolescent Medicine 10/20/22 documented as of this encounter
--- OUTSIDE RECORDS SUMMARY | 2025-01-23 15:55 | XMS_ITS | Encounter Summary ---
Author Organization [employer] Address [address] [place] [address] Care Team Providers Care Mobile Battery Technician Name Role Phone Alfredo Aguiar MD Primary Care Provider + [phone] Alfredo Aguiar MD Primary Care Provider + [phone] Encounter Details Date Type Department Care Team (Late st Contact Info) Description 05/18/2019 Transcribed Document [facility] [place] [facility] [place] [address] ProviderEryn MD [address] [place] [id number] Social History Tobacco Use Types Packs/Day Years Used Date Smoking Tobacco: Never Assessed Sex and Gender Information Value Date Recorded Sex Assigned at Not on file Legal Sex Male 5:45 PM CDT Gender Identity Not on file Sexual Orientation Not on file documented as of this encounter Miscellaneous Notes * Cerner Conversion Note - Eryn ProviderMD - 05/18/2019 11:17 AM CDT Spiritual Care Assessment Entered On: 05/20/2019 12:37 EDT Performed On: 05/20/2019 11:10 EDT by TREVOR FLORIAN General Information Initial Visit : Yes Referred by : Patient Referral Reason Comment : Pre-surgery visit Ministry Provided to : Patient, Family/Significant other TREVOR FLORIAN - 05/20/2019 12:36 EDT Spiritual Assessment Spiritual Assessment Comment/Summary Points : Pre-surgery visit and prayer with patient and . Patient will be admitted for several days for antibiotic treatment. Spirital Assessment Comment/Summary Report : SPIRITUAL ASSESSMENT COMMENT/SUMMARY No qualifying data available. TREVOR FLORIAN - 05/20/2019 12:36 EDT Interventions Emotional Support : Empathic/Engaged listening, Family/Significant other supported, Feelings expressed, Relationship strengths identified Spiritual and Advent : Prayer shared, Spiritual/Advent support provided TREVOR FLORIAN P - 05/20/2019 12:36 EDT Electronically signed by Wellington [facility] Conversion Hvac Journeyman Cerner at 11/18/2022 9:38 AM CDT documented in this encounter Plan of Treatment Not on file documented as of this encounter Visit Diagnoses Not on filedocumented in this encounter Care Teams Mobile Battery Technician Relationship Specialty Start Date End Date Alfredo Aguiar MD [address] [place] [address] PCP - General Adolescent Medicine 10/16/22 10/19/22 Alfredo Aguiar MD [address] [place] [address] PCP - General Adolescent Medicine 10/20/22 documented as of this encounter
--- OUTSIDE RECORDS SUMMARY | 2025-01-23 15:55 | XMS_ITS | Encounter Summary ---
Author Organization [employer] Address [address] [place] [address] Care Team Providers Care Guidance Director Name Role Phone Alfredo Aguiar MD Primary Care Provider + [phone] Alfredo Aguiar MD Primary Care Provider + [phone] Encounter Details Date Type Department Care Team (Late st Contact Info) Description 05/23/2019 Transcribed Document [facility] [place] [facility] [place] [address] ProviderEryn MD [address] [place] [id number] Social History Tobacco Use Types Packs/Day Years Used Date Smoking Tobacco: Never Assessed Sex and Gender Information Value Date Recorded Sex Assigned at Not on file Legal Sex Male 5:45 PM CDT Gender Identity Not on file Sexual Orientation Not on file documented as of this encounter Miscellaneous Notes * Cerner Conversion Note - Eryn Arcos MD - 05/23/2019 12:00 PM CDT Pain Assessment Entered On: 05/23/2019 16:32 EDT Performed On: 05/23/2019 12:55 EDT by ADITYA CRUMP RN Intervention Information: acetaminophen Performed by ADITYA CRUMP RN on 05/23/2019 11:55:00 EDT acetaminophen,1000mg Oral Pain Assessment Pain Assessment : Follow-up assessment Pain Scale Goal : 3 Pain Scale Used : 0-10 Scale Location : Knee, left Onset : Acute Quality : Aching Pain Radiation : No Pain Improved by : Medication Pain Worsened by : Movement Pain Intervention, Drug : Medicated Pain Improved by Intervention : Yes ADITYA CRUPM RN - 05/23/2019 16:32 EDT Pain Scale Intensity : 0 ADITYA CRUMP RN - 05/23/2019 16:32 EDT Image 4 - Images currently included in the form version of this document have not been included in the text rendition version of the form. documented in this encounter Plan of Treatment Not on file documented as of this encounter Visit Diagnoses Not on filedocumented in this encounter Care Teams Guidance Director Relationship Specialty Start Date End Date Alfredo Aguiar MD [address] [place] [address] PCP - General Adolescent Medicine 10/16/22 10/19/22 Alfredo Aguiar MD [address] [place] [address] PCP - General Adolescent Medicine 10/20/22 documented as of this encounter
--- OUTSIDE RECORDS SUMMARY | 2025-01-23 15:55 | XMS_ITS | Encounter Summary ---
Author Organization [employer] Address [address] [facility] [place] [address] Care Team Providers Care Order Picker Name Role Phone Alfredo Aguiar MD Primary Care Provider + [phone] Alfredo Aguiar MD Primary Care Provider + [phone] Encounter Details Date Type Department Care Team (Late st Contact Info) Description 05/20/2019 Transcribed Document [address] [id number] Massimo Butterfield MD [address] [place] [address] Social History Tobacco Use Types Packs/Day Years Used Date Smoking Tobacco: Never Assessed Sex and Gender Information Value Date Recorded Sex Assigned at Not on file Legal Sex Male 5:45 PM CDT Gender Identity Not on file Sexual Orientation Not on file documented as of this encounter Miscellaneous Notes * Cerner Conversion Note - Massimo Butterfield MD - 05/20/2019 11:14 AM EDT Patient: LORA JAIN JR Age: 78 years Sex: Male : 1940 Associated Diagnoses: None Author: Shelby Parrish APRN 05/20/19 cc: medical management awaiting left total knee revision arthroplasty DR. RAYO COVERING SERVICE UNTIL THURSDAY AM 05/23/19--------CONTACT INFO [phone] HPI: Patient is an 78 yo male admitted to [facility] ([place], [place]) for a left total knee revision arthroplasty. Patient had previously undergone a left total knee replacement approx 1 year ago in Apr 2018 for advanced osteoarthritis. Patient seen initially in preop. A/O. at bedside. Denies any history of anesthesia complications. No chronic respiratory issues or recent respiratory illness. No cough, chest pain, dyspnea, fever/chills, N/V/D/C, or dysuria. No history of CVA or DVT/PE. Possible hx TIA- head CT negative. Chronic intermittent sharp shooting pain to left knee. Recent poor glycemic control with left knee infection. 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) Lesion of colon Migraine (hx of) Restless legs syndrome (occasional) Skin cancer Sleep apnea (cpap) Active Procedures (1) left total knee Family Hx: Social & Psychosocial Habits Alcohol 03/24/2018 Alcohol Use History, Social Habits Yes Alcohol Use Frequency Rarely Substance Abuse 03/24/2018 Recreational Drug Use History No Recreational Drug Use Last 12 Months No Tobacco 03/24/2018 Smoking Status Never (less than 100 in l Smokeless Tobacco Status Never Second Hand Smoke Exposure Yes 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 Neurologic: [Awake, alert, and oriented X3, CN II-XII intact]. Eye: [PERRL, EOMI, normal conjunctiva]. HENT: [Normocephalic, normal hearing, moist oral mucosa, no scleral icterus, no sinus tenderness]. Neck: [Supple, non-tender, no lymphadenopathy]. Lungs: [Clear to auscultation, non-labored respiration]. Heart: [Normal rate, regular rhythm, no edema]. Abdomen: [Soft, non-tender, non-distended, normal bowel sounds Musculoskeletal: left knee pain with decreased ROM Skin: [Skin is warm, dry and pink Psychiatric: [Cooperative, appropriate mood and affect]. Data: Pre operative CBC, BMP, coags reviewed- Platelets 581, BS 261, A1C 10.7 Assessment: awaiting left total knee revision arthroplasty per Dr. Allison DMII- poor control A1C 10.7 preop Hx LUZ ELENA- has CPAP Hx RLS Hx prostate cancer- prostate removed Hx anemia Hx Gerd Plan: Monitor HTN; add PRN's, hold parameters bowel regimen incentive spirometer PT/OT DVT prophylaxis noted Pain management deferred to surgeon will monitor hb/hct daily for signs of ongoing acute blood loss will monitor bun/cr daily for signs of dehydration, prerenal azotemia will monitor for signs/symptoms of post-op wound infection or hospital acquired infectious process accuchecks qac, qhs for blood glucose monitoring; will hold oral diabetic agents while hospitalized. will use short acting insulin for correction. may add long-acting insulin for persistent hyperglycemia resume outpatient medication regimen for comorbidities Assessment and treatment plan made in conjunction with MD Jennifer Scribed by Renetta Solomon documented in this encounter Plan of Treatment Not on file documented as of this encounter Visit Diagnoses Not on filedocumented in this encounter Care Teams Order Picker Relationship Specialty Start Date End Date Alfredo Aguiar MD [address] [place] [address] PCP - General Adolescent Medicine 10/16/22 10/19/22 Alfredo Aguiar MD [address] [place] [address] PCP - General Adolescent Medicine 10/20/22 documented as of this encounter
--- OUTSIDE RECORDS SUMMARY | 2025-01-23 15:55 | XMS_ITS | Encounter Summary ---
Author Organization [employer] Address [address] [place] [address] Care Team Providers Care Ship Engineer Name Role Phone Alfredo Aguiar MD Primary Care Provider + [phone] Alfredo gAuiar MD Primary Care Provider + [phone] Encounter Details Date Type Department Care Team (Late st Contact Info) Description 08/17/2019 Transcribed Document [facility] [address] [place] [address] [address] [facility] [place] [address] Social History Tobacco Use Types Packs/Day Years Used Date Smoking Tobacco: Never Assessed Sex and Gender Information Value Date Recorded Sex Assigned at Not on file Legal Sex Male 5:45 PM CDT Gender Identity Not on file Sexual Orientation Not on file documented as of this encounter Miscellaneous Notes * Cerner Conversion Note - Guillermina Allison MD - 08/17/2019 11:10 AM EST Patient: LORA JAIN JR Age: 78 years Sex: Male : 1940 Associated Diagnoses: None Author: EMMA VALLE APRN Chief Complaint s/p L knee prosthetic infection /explant Review of Systems ROS reviewed as documented in chart no change since last seen by surgeon Health Status Allergies: Allergic Reactions (Selected) No Known Allergies, Allergies (1) Active Reaction No Known Allergies None Documented Current medications: (Selected) Inpatient Medications Ordered Ancef: 2 Gram, 50 mL, 100 mL/Hr, IV Piggyback, PREOP Chloraseptic 6 mg-10 mg mucous membrane lozenge: 1 Lozenge, Oral, Q2H, PRN: Sore Throat Colace: 100 mg, Oral, Daily Cyklokapron 1,000 mg + syringe 1 Each + Sodium Chloride 0.9% intravenous solution 15 mL: 1,000 mg, 10 mL, 150 mL/Hr, IV Push, 1-Time Cyklokapron 2,000 mg + sodium chloride 0.9% injectable solution 5 mL + syringe 1 Each: 2,000 mg, 20 mL, 75 mL/Hr, IV Push, 1-Time Dulcolax Laxative: 10 mg, Rectal, BID, PRN: Constipation Lactated Ringers Injection intravenous solution 1,000 mL: 20 mL/Hr, IntraVENous Milk of Magnesia 8% oral suspension: 30 mL, Oral, TID, PRN: Constipation MiraLax: 17 Gram, Oral, Daily Phenergan: 12.5 mg, IV Push, Q6H, PRN: Nausea Tylenol: 1,000 mg, Oral, On-Arrival Zofran: 4 mg, IV Push, 1-Time Zofran: 4 mg, IV Push, Q4H, PRN: Nausea cloNIDine: 0.2 mg, Oral, Q4H, PRN: Hypertension hydrALAZINE: 10 mg, IV Push, Q6H, PRN: Hypertension lidocaine 1% preservative-free injectable solution: 0.5 mL, IntraDermal, 1-Time ropivacaine 0.5% injectable solution 24.6 mL + EPINEPHrine 0.25 mg + cloNIDine 40 mcg + Sodium Chlo...: 24.6 mL, 50 mL/Hr, Miscellaneous, 1-Time simethicone: 80 mg, Oral, Q6H, PRN: Gas Documented Medications Documented Motrin IB: 400 mg, Oral, Q6H, PRN: as needed for pain, 0 Refill(s) NovoLOG Mix 70/30 FlexPen: 20 Units, SubCutaneous, AC Breakfast, 0 Refill(s) NovoLOG Mix 70/30 FlexPen: 6 Units, SubCutaneous, AC Dinner, 0 Refill(s) Spiriva Respimat 2.5 mcg/inh inhalation aerosol: 2 Puff, Inhalation, Daily, 0 Refill(s) Viibryd: 40 mg, Oral, At Bedtime, 0 Refill(s) bisoprolol: 5 mg, Oral, Daily, 0 Refill(s) ferrous sulfate: 324 mg, Oral, With Lunch, 0 Refill(s) metFORMIN: 1,000 mg, Oral, BID, 0 Refill(s) omeprazole: 20 mg, Oral, At Bedtime, 0 Refill(s) probiotic pearls acidophilus: 1 caps, Oral, BID, 0 Refill(s), Home Medications (10) Active bisoprolol 5 mg, Oral, Daily ferrous sulfate 324 mg, Oral, With Lunch metFORMIN 1,000 mg, Oral, BID Motrin IB 400 mg, PRN, Oral, Q6H NovoLOG Mix 70/30 FlexPen 20 Units, SubCutaneous, AC Breakfast NovoLOG Mix 70/30 FlexPen 6 Units, SubCutaneous, AC Dinner omeprazole 20 mg, Oral, At Bedtime probiotic pearls acidophilus 1 caps, Oral, BID Spiriva Respimat 2.5 mcg/inh inhalation aerosol 2 Puff, Inhalation, Daily Viibryd 40 mg, Oral, At Bedtime , Medications (18) Active Scheduled: (9) acetaminophen 500 mg tab 1,000 mg 2 Tab, Oral, On-Arrival ceFAZolin/D5w 2 Gram 50 mL, IV Piggyback, PREOP docusate sodium 100 mg cap 100 mg 1 Cap, Oral, Daily lidocaine 1% *PF* inj 2 mL 0.5 mL, IntraDermal, 1-Time ondansetron 4 mg/2 mL inj 4 mg 2 mL, IV Push, 1-Time polyethylene glycol 3350 pwd 17 g pkt 17 Gram 1 Packet, Oral, Daily ropivacaine 0.5% 24.6 mL + EPINEPHrine 0.25 mg + cloNIDine 40 mcg + NaCl 0.9% 24.75 mL 24.6 mL, Miscellaneous, 1-Time tranexamic acid 1,000 mg + syringe 1 Each + NaCl 0.9% 15 mL 1,000 mg 10 mL, IV Push, 1-Time tranexamic acid 2,000 mg + NaCl 0.9% *PF* 5 mL + syringe 1 Each 2,000 mg 20 mL, IV Push, 1-Time Continuous: (1) lactated ringers 1,000 mL 1,000 mL, IntraVENous, 20 mL/Hr PRN: (8) benzocaine-menthol 6 mg florian 1 Lozenge, Oral, Q2H bisacodyl 10 mg supp 10 mg 1 Supp, Rectal, BID cloNIDine 0.2 mg tab 0.2 mg 1 Tab, Oral, Q4H hydrALAZINE 20 mg/1 mL inj 10 mg 0.5 mL, IV Push, Q6H magnesium hydroxide 8% liq 30 mL 30 mL, Oral, TID ondansetron 4 mg/2 mL inj 4 mg 2 mL, IV Push, Q4H promethazine 25 mg/1 mL inj 12.5 mg 0.5 mL, IV Push, Q6H simethicone 80 mg chew tab 80 mg 1 Tab, Oral, Q6H Problem list: All Problems Tachycardia, takes bisoprolol / SNOMED CT 2421517 / Confirmed Sleep apnea (cpap) / SNOMED CT 563366933 / Confirmed Skin cancer / SNOMED CT 3377880144 / Confirmed Bundle branch block, right / SNOMED CT 90137534 / Confirmed Restless legs syndrome (occasional) / SNOMED CT 90595067 / Confirmed Infection of prosthetic left knee joint / SNOMED CT 257581767 / Confirmed Degenerative joint disease (left knee) / SNOMED CT 4554005582 / Confirmed Migraine (hx of) / SNOMED CT 49305620 / Confirmed Incontinence (occasional) / SNOMED CT 06836886 / Confirmed History of obstructive sleep apnea / IMO 39410430 / Confirmed Hiatal hernia / SNOMED CT 048971794 / Confirmed H/O: TIA / SNOMED CT 898825137 / Confirmed states went to ER and was given workup, which was inconclusive GERD - Gastro-esophageal reflux disease (occasional) / SNOMED CT 3060343160 / Confirmed 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) / SNOMED CT 20242051 / Confirmed Lesion of colon / SNOMED CT 1192129182 / Confirmed found on colonoscopy-being monitored Diabetes mellitus type II (IDDM) / SNOMED CT 68054109 / Confirmed Chronic diarrhea / SNOMED CT 679788214 / Confirmed CA - Cancer of prostate (hx of) / SNOMED CT 5013199881 / Confirmed Asthma / SNOMED CT 999671979 / Confirmed Arthritis / SNOMED CT 6457850 / Confirmed Anemia / SNOMED CT 206147702 / Confirmed, Active Problems (21) Anemia Arthritis Asthma Bundle branch block, right CA - Cancer of prostate (hx of) Chronic diarrhea Degenerative joint disease (left knee) Diabetes mellitus type II (IDDM) GERD - Gastro-esophageal reflux disease (occasional) H/O: TIA Hiatal hernia History of obstructive sleep apnea Incontinence (occasional) 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 Family History: No family history items have been selected or recorded. Procedure history: left knee explant in the month of 05/2019 at 78 Years. left total knee in the month of 05/2018 at 77 Years. right hand trigger finger repair in 2018 at 77 Years. hernia repair with mesh left inguinal in 2011 at 71 Years. lap alexis in 2010 at 70 Years. left knee scope, meniscus repair in 2009 at 69 Years. prostatectomy on 01/18/2008 at 67 Years. skin cancer removal (nose) in 2003 at 63 Years. Comments: 03/24/2018 13:28 HERMAN MARAVILLA RN squamous ESS, septal surgery in 2002 at 62 Years. appendectomy in 1972 at 32 Years. repair of left wrist/hand (ORIF) in 1964 at 24 Years. Comments: 03/24/2018 13:27 HERMAN MARAVILLA RN pin removed approx 3 months after sx repair of left ankle (I&D, stitches) in 1951 at 11 Years. colonoscopy. Social History Social & Psychosocial Habits Alcohol 03/24/2018 Alcohol Use History, Social Habits Yes Alcohol Use Frequency Rarely Substance Abuse 03/24/2018 Recreational Drug Use History No Recreational Drug Use Last 12 Months No Tobacco 03/24/2018 Smoking Status Never (less than 100 in l Smokeless Tobacco Status Never Second Hand Smoke Exposure Yes Comment: worked in a tobacco [employer] - 03/24/2018 13:52 - HERMAN LARSEN RN . Physical Examination VS/Measurements No qualifying data available General: Alert and oriented, No acute distress. Eye: Pupils are equal, round and reactive to light, Extraocular movements are intact, glasses. HENT: Normocephalic, Normal hearing. Neck: Supple, Non-tender. Respiratory: Lungs are clear to auscultation, Respirations are non-labored. Cardiovascular: Normal rate, Regular rhythm, No murmur, No gallop, No edema. Gastrointestinal: Soft, Non-tender. Genitourinary: No costovertebral angle tenderness. Lymphatics: No lymphadenopathy neck, axilla, groin. Musculoskeletal: non wt bearing LLE, wears brace and uses wc to ambulate. Integumentary: Warm, Dry, [place], mild redness in gluteal fold POA. Neurologic: Alert, Oriented. Psychiatric: Cooperative, Appropriate mood & affect. Review / Management Results review: Labs (Last four charted values) WBC 6.4 (AUG 04) HB L 13.4 (AUG 04) HCT 41.4 (AUG 04) Plt 309 (AUG 04) Na 138 (AUG 04) K 5.0 (AUG 04) Cl 103 (AUG 04) CO2 28 (AUG 04) BUN H 35 (AUG 04) Cr H 1.70 (AUG 04) Glu R H 126 (AUG 04) Ca 9.7 (AUG 04) PT 10.2 (AUG 04) INR 1.0 (AUG 04) PTT 25.7 (AUG 04) . Impression and Plan Condition: Stable. documented in this encounter Plan of Treatment Not on file documented as of this encounter Visit Diagnoses Not on filedocumented in this encounter Care Teams Ship Engineer Relationship Specialty Start Date End Date Alfredo Aguiar MD [address] [place] [address] [place] [address] PCP - General Adolescent Medicine 10/16/22 10/19/22 Alfredo Aguiar MD [address] [place] [address] PCP - General Adolescent Medicine 10/20/22 documented as of this encounter
--- OUTSIDE RECORDS SUMMARY | 2025-01-23 15:55 | XMS_ITS | Encounter Summary ---
Author Organization [employer] Address [address] [place] [address] Care Team Providers Care Sheriff'S Sergeant Name Role Phone Alfredo Aguiar MD Primary Care Provider + [phone] Alfredo Aguiar MD Primary Care Provider + [phone] Encounter Details Date Type Department Care Team (Late st Contact Info) Description 08/17/2019 Transcribed Document [address] [address] Lion Allison MD [facility] [place] [address] Social History Tobacco Use Types Packs/Day Years Used Date Smoking Tobacco: Never Assessed Sex and Gender Information Value Date Recorded Sex Assigned at Not on file Legal Sex Male 5:45 PM CDT Gender Identity Not on file Sexual Orientation Not on file documented as of this encounter Miscellaneous Notes * Cerner Conversion Note - Lion Allison MD - 08/17/2019 5:26 PM EST Patient: LORA JAIN JR Age: 78 years Sex: Male : 1940 Associated Diagnoses: None Author: LION ALLISON MD-ORT Pre-op Dx: infected L TKA s/p explant/spacer Post-op: same Procedure: rev L TKA Surg: Keegan Asst: Ancelmo Anesthesia: GETA EBL: 100 Complications: none Dispo: pacu Findings: no purulence documented in this encounter Plan of Treatment Not on file documented as of this encounter Visit Diagnoses Not on filedocumented in this encounter Care Teams Sheriff'S Sergeant Relationship Specialty Start Date End Date Alfredo Aguiar MD [address] [place] [address] PCP - General Adolescent Medicine 10/16/22 10/19/22 Alfredo Aguiar MD [address] [place] [address] PCP - General Adolescent Medicine 10/20/22 documented as of this encounter
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
--- OUTSIDE RECORDS SUMMARY | 2025-01-23 15:55 | XMS_ITS | Encounter Summary ---
Author Organization [employer] Address [address] [place] [address] Care Team Providers Care Line Locator Name Role Phone Alfredo Aguiar MD Primary Care Provider + [phone] Alfredo Aguiar MD Primary Care Provider + [phone] Encounter Details Date Type Department Care Team (Late st Contact Info) Description 08/18/2019 Transcribed Document [facility] [place] [facility] [place] [address] ProviderEryn MD [address] [place] [id number] Social History Tobacco Use Types Packs/Day Years Used Date Smoking Tobacco: Never Assessed Sex and Gender Information Value Date Recorded Sex Assigned at Not on file Legal Sex Male 5:45 PM CDT Gender Identity Not on file Sexual Orientation Not on file documented as of this encounter Miscellaneous Notes * Cerner Conversion Note - Eryn ProviderMD - 08/18/2019 2:00 AM 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 Details Entered On: 08/18/2019 4:12 EST Performed On: 08/18/2019 2:00 EST by Eric Guerrero RN-Resource Order Details Order Detail : N/A IV Order Detail : 1 Oxygen Order Detail : 1 Nurse Collect Order Detail : 0 Lift/Transfer : Moderate assist Central Line Order Detail : No Room Service : Needs Assistance Arterial Line : No Eric Guerrero RN-Resource - 08/18/2019 4:12 EST documented in this encounter Plan of Treatment Not on file documented as of this encounter Visit Diagnoses Not on filedocumented in this encounter Care Teams Line Locator Relationship Specialty Start Date End Date Alfredo Aguiar MD [address] [place] [address] PCP - General Adolescent Medicine 10/16/22 10/19/22 Alfredo Aguiar MD [address] [place] [address] PCP - General Adolescent Medicine 10/20/22 documented as of this encounter
--- OUTSIDE RECORDS SUMMARY | 2025-01-23 15:55 | XMS_ITS | Encounter Summary ---
Author Organization [employer] Address [address] [place] [address] Care Team Providers Care Performance Engineer Name Role Phone Alfredo Aguiar MD Primary Care Provider + [phone] Alfredo Aguiar MD Primary Care Provider + [phone] Encounter Details Date Type Department Care Team (Late st Contact Info) Description 08/04/2019 Transcribed Document [facility] [place] [address] ProviderEryn MD [address] [place] [id number] Social History Tobacco Use Types Packs/Day Years Used Date Smoking Tobacco: Never Assessed Sex and Gender Information Value Date Recorded Sex Assigned at Not on file Legal Sex Male 5:45 PM CDT Gender Identity Not on file Sexual Orientation Not on file documented as of this encounter Miscellaneous Notes * Cerner Conversion Note - Historical ProviderMD - 08/04/2019 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 Pt having a cracked crown replaced tomorrow, cavity filled on Thursday but that tooth may need extracted. Pt also expressed desire to return to [facility] in [place] after discharge. These concerns called to Jan at Dr. Allison's office. Also called and faxed labs, noting creatinine of 1.7. Marta Zurita RN - 08/04/2019 15:35 EST Electronically signed by [facility] Conversion Plumber Assistant Cerner at 11/18/2022 9:13 AM CDT documented in this encounter Plan of Treatment Not on file documented as of this encounter Visit Diagnoses Not on filedocumented in this encounter Care Teams Performance Engineer Relationship Specialty Start Date End Date Alfredo Aguiar MD [address] [place] [address] PCP - General Adolescent Medicine 10/16/22 10/19/22 Alfredo Aguiar MD [address] [place] [address] PCP - General Adolescent Medicine 10/20/22 documented as of this encounter
--- OUTSIDE RECORDS SUMMARY | 2025-01-23 15:55 | XMS_ITS | Encounter Summary ---
Author Organization [employer] Address [address] [facility] [place] [address] Care Team Providers Care Direct Service Professional Name Role Phone Alfredo Aguiar MD Primary Care Provider + [phone] Alfredo Aguiar MD Primary Care Provider + [phone] Encounter Details Date Type Department Care Team (Late st Contact Info) Description 08/18/2019 Transcribed Document [facility] [address] [place] [address] Massimo Butterfield MD [address] [place], [place] [id number] Social History Tobacco Use Types Packs/Day Years Used Date Smoking Tobacco: Never Assessed Sex and Gender Information Value Date Recorded Sex Assigned at Not on file Legal Sex Male 5:45 PM CDT Gender Identity Not on file Sexual Orientation Not on file documented as of this encounter Miscellaneous Notes * Cerner Conversion Note - Massimo Butterfield MD - 08/18/2019 11:49 AM EST Patient: LORA JAIN JR Age: 78 years Sex: Male : 1940 Associated Diagnoses: None Author: JOS CLARK APRN-NATHANIEL 08/17/2019 cc: medical management s/p left total knee revision arthroplasty per Dr. Allison S: Patient found sitting up in bed. A/O. Daughter at bedside. Patient reports he rested well last night. Block is still working so LLE remains numb which is controlling pain. Surgery was late last night so patient has not yet been out of bed. He is awaiting a bed at [facility] in [place] for rehab at discharge. No cough, fever/chills, n/v or dysuria. Bowels have not yet moved but patient reports passing gas. HPI: Patient is an 78 yo male admitted to [facility] per Dr. Allison for a left total knee revision arthroplasty. Patient has recently undergone left total knee prosthesis removal and placement of abx spacer. Radiographs revealed an evidence of osteolysis and bone destruction. Inflammatory markers were elevated. Aspiration of the left knee revealed significantly elevated white blood cell count, neutrophil percentage, and positive Synovasure testing. Cultures were positive for Streptococcus mutans. 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 Patient underwent resection and abx spacer placement in May 2019. Patient has completed protracted abx course under the guidance of infectious disease and presents this admission for revision. Patient is followed perioperatively while hospitalized for medical management. Patient is seen pre-operatively. Reports nothing to eat or drink since 5 PM yesterday. He reports that he had some loose stools with diarrhea about 2-3 days ago but nothing in the past 24 hours. No fever, chills, sweats. Patient reports that Dr. Peng is aware of his hoapital admission. Off of antibiotics for several weeks. His PICC has been removed. He is ready for spacer removal and hardware implantation today Past Med Hx: Active Problems (21) Anemia Arthritis Asthma Bundle [...] cancer Sleep apnea (cpap) Tachycardia, takes bisoprolol Active Procedures (2) colonoscopy left knee explant Family Hx: Uncontributory Social & Psychosocial Habits Alcohol 03/24/2018 Alcohol Use History, Social Habits Yes Alcohol Use Frequency Rarely Substance Abuse 03/24/2018 Recreational Drug Use History No Recreational Drug Use Last 12 Months No Tobacco 03/24/2018 Smoking Status Never (less than 100 in l Smokeless Tobacco Status Never Second Hand Smoke Exposure Yes 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 - 03/24/2018 13:52 - HERMAN LARSEN, RN Home Medications (14) Active aspirin 81 mg oral tablet 81 mg = 1 Tab, Oral, BID bisoprolol 5 mg, Oral, Daily Colace 100 mg oral capsule 100 mg = 1 Cap, PRN, Oral, BID ferrous gluconate 324 mg (37.5 mg elemental iron) oral tablet 324 mg = 1 Tab, Oral, Daily ferrous sulfate 324 mg, Oral, With Lunch metFORMIN 1,000 mg, Oral, BID Neurontin 300 mg oral capsule 300 mg = 1 Cap, PRN, Oral, At Bedtime NovoLOG Mix 70/30 FlexPen 20 Units, SubCutaneous, AC Breakfast NovoLOG Mix 70/30 FlexPen 6 Units, SubCutaneous, AC Dinner omeprazole 20 mg, Oral, At Bedtime Percocet 5/325 oral tablet 1 Tab, PRN, Oral, Q4H probiotic pearls acidophilus 1 caps, Oral, BID Spiriva Respimat 2.5 mcg/inh inhalation aerosol 2 Puff, Inhalation, Daily Viibryd 40 mg, Oral, At Bedtime Constitutional: [No fevers, chills, sweats] Eye: [No recent visual problems, eye discharge, eye pain, redness] HEENT: [No nasal congestion, sore throat Respiratory: [No shortness of breath, cough, pain on breathing, sputum production] Cardiovascular: [No Chest pain, palpitations, syncope, shortness of breath while laying flat] Gastrointestinal: [No nausea, vomiting Genitourinary: [No hematuria, dysuria Musculoskeletal: left knee under block, decreased ROM Integumentary: [No rash, pruritus. accordion drain intact- bloody drainage Neurologic: [No weakness, +LLE numb from block Psychiatric: [No anxiety, depression Exam: Vitals Signs (last 24 hrs) Last Charted Minimum Maximum Temp 97.6 (AUG 18 06:00) 97.6 (AUG 18 06:00) 98.5 (AUG 17 17:07) Apical HR L 55 (AUG 17 11:25) L 55 (AUG 17 11:25) L 55 (AUG 17 11:25) Mon HR 72 (AUG 18 06:00) 58 (AUG 17:) 83 (AUG 17:) Resp Rate 16 (AUG 18 06:00) L 10 (AUG 17:25) 18 (AUG 17:) SBP 95 (AUG 18 06:00) 95 (AUG 18 06:00) 137 (AUG 17 17:10) DBP L 54 (AUG 18 06:00) L 50 (AUG 17:) 74 (AUG 17:) MAP 66 (AUG 18 06:00) 65 (AUG 18 04:00) 98 (AUG 17 17:10) SpO2 97 (AUG 18 06:00) L 92 (AUG 17:40) 100 (AUG 17:) Vitals Signs (last 24 hrs) Last Charted Minimum Maximum Temp 97.6 (AUG 18 06:00) 97.6 (AUG 18:00) 98.5 (AUG 17:) Apical HR L 55 (AUG 17:) L 55 (AUG 17:) L 55 (AUG 17:) Mon HR 72 (AUG 18 06:00) 58 (AUG 17:) 83 (AUG 17:) Resp Rate 16 (AUG 18 06:00) L 10 (AUG 17:) 18 (AUG 17:) SBP 95 (AUG 18 06:00) 95 (AUG 18 06:00) 137 (AUG 17 17:10) DBP L 54 (AUG 18 06:00) L 50 (AUG 17:) 74 (AUG 17:) MAP 66 (AUG 18 06:00) 65 (AUG 18 04:00) 98 (AUG 17 17:10) SpO2 97 (AUG 18 06:00) L 92 (AUG 17:40) 100 (AUG 17 11:) General: [Alert and oriented, no acute distress]. Neurologic: [Awake, alert, and oriented X3, CN II-XII intact]. Eye: [PERRL, EOMI, normal conjunctiva]. HENT: [Normocephalic, normal hearing, moist oral mucosa, no scleral icterus, no sinus tenderness]. Neck: [Supple, non-tender, no lymphadenopathy]. Lungs: [Clear to auscultation, non-labored respiration]. Heart: [Normal rate, regular rhythm, no edema]. Abdomen: [Soft, non-tender, non-distended, normal bowel sounds Musculoskeletal: Left knee remains numb, decreased ROM Skin: [Skin is warm, dry and pink Psychiatric: [Cooperative, appropriate mood and affect]. Data: Labs (Last four charted values) WBC 7.8 (AUG 18) 6.4 (AUG 04) HB L 11.6 (AUG 18) L 11.9 (AUG 17) L 13.4 (AUG 04) HCT L 35.9 (AUG 18) 41.4 (AUG 04) Plt 294 (AUG 18) 309 (AUG 04) Na 136 (AUG 18) 138 (AUG 04) K 4.4 (AUG 18) 5.0 (AUG 04) Cl 102 (AUG 18) 103 (AUG 04) CO2 32 (AUG 18) 28 (AUG 04) BUN H 24 (AUG 18) H 35 (AUG 04) Cr H 1.40 (AUG 18) H 1.70 (AUG 04) Glu R H 237 (AUG 18) H 126 (AUG 04) Ca 8.6 (AUG 18) 9.7 (AUG 04) PT 10.2 (AUG 04) INR 1.0 (AUG 04) PTT 25.7 (AUG 04) Impression: left knee septic arthritis s/p protracted IV abx course for infection and placement of abx spacer with prosthesis removal -s/p left total knee revision arthroplasty per Dr. Allison HTN GERD DM Plan: ID following for antibiotic management- cultures pending continue to HOLD Metformin and 70/30 insulin coverage with SSI and monitor PO intake Monitor HTN; add PRN's, hold parameters bowel regimen incentive spirometer PT/OT DVT prophylaxis noted- SCDs Pain management deferred to surgeon will monitor [...] hyperglycemia resume outpatient medication regimen for comorbidities assessment and treatment plan made in conjunction with Yissel Butterfield MD Scribed by Renetta Solomon documented in this encounter Plan of Treatment Not on file documented as of this encounter Visit Diagnoses Not on filedocumented in this encounter Care Teams Direct Service Professional Relationship Specialty Start Date End Date Alfredo Aguiar MD [address] [place] [address] PCP - General Adolescent Medicine 10/16/22 10/19/22 Alfredo Aguiar MD [address] [place] [address] PCP - General Adolescent Medicine 10/20/22 documented as of this encounter
--- OUTSIDE RECORDS SUMMARY | 2025-01-23 15:55 | XMS_ITS | Clinical Summary ---
Author Organization [facility] Address [address] [place] [address] Phone Care Team Providers Care Appliance Parts Counter Clerk Name Role Phone Danish MALDONADO, Baljinder Jara [facility] [ ] Conditions or Problems Problem Name Problem Code Onset Date Status Entry Date Provider Comment Standard Description Annotate Acute nontraumatic kidney injury 580461279591 103 (SNOMED CT) 11/23 Active 11/23 Baljinder Peng MD Acute nontraumatic kidney injury Anemia due to acute blood loss 198352221 (SNOMED CT) 08/24 Active 08/24 Michelle Mcmanus Acute posthemorrhagic anemia Knee, left, subsequent encounter, infection/in flammatory reaction due to internal joint prosthesis T84.54xD (ICD-10-CM) 08/14 Active 08/14 Michelle Mcmanus Infection and inflammatory reaction due to internal left knee prosthesis, subsequent encounter Cellulitis of LLE L03.116 (ICD-10-CM) 08/14 Active 08/14 Michelle Mcmanus Cellulitis of left lower limb Strep mutans infection B95.4 (ICD-10-CM) 08/14 Active 08/14 Michelle Mcmanus Other streptococcus as the cause of diseases classified elsewhere Anemia in chronic diseases(doc ument disease) D63.8 (ICD-10-CM) 08/14 Active 08/14 Michelle Mcmanus Anemia in other chronic diseases classified elsewhere DM Type II E11.9 (ICD-10-CM) 08/14 Active 08/14 Michelle Mcmanus Type 2 diabetes mellitus without complications Benign Essential Hypertension 11378633 (SNOMED CT) 08/14 Active 08/14 Michelle Mcmanus Benign hypertension Malignant neoplasm of prostate 019820162 (SNOMED CT) 08/14 Active 08/14 Michelle Mcmanus Malignant neoplasm of prostate Medications Medication Instructions Start Date Stop Date Generic Name NDC Provider AMOXICILLIN 875 MG TABS Take by mouth twice a day 3 AMOXICILLIN 13860188212 Baljinder Peng MD AMOXICILLIN 875 MG TABS Take by mouth twice a day 3 AMOXICILLIN 22368258957 Baljinder Peng MD AMOXICILLIN 875 MG TABS Take one (1) tablet by mouth twice a day 1 AMOXICILLIN 08424529841 Baljinder Peng MD AMOXICILLIN 875 MG TABS 1 by mouth twice a day 3 AMOXICILLIN 01850473763 Baljinder Peng MD AMOXICILLIN-POT CLAVULANATE 875-125 MG TABS one po bid 5 AMOXICILLIN-PO T CLAVULANATE 27981187002 Baljinder Peng MD AMOXICILLIN-POT CLAVULANATE 875-125 MG TABS one po bid 5 AMOXICILLIN-PO T CLAVULANATE 66343167556 Baljinder Peng MD AMOXICILLIN 875 MG TABS 1 by mouth twice a day 3 AMOXICILLIN 29480487380 Baljinder Peng MD VIIBRYD 40 MG TABS Take 1 tablet by mouth daily at bedtime 1 VILAZODONE HCL 38852639619 Shireen Fernandes PERCOCET 5-325 MG TABS 1 tablet every 4 hours as needed 1 OXYCODONE-ACET AMINOPHEN 77563956342 Shireen Fernandes [facility] OMEPRAZOLE 20 MG TBDD Take 1 tablet by mouth daily at bedtime 1 OMEPRAZOLE 67151769683 Shireen Fernandes NEURONTIN 300 MG CAPS Take 1 tablet by mouth daily at bedtime as needed 1 GABAPENTIN 01407519225 Shireen Fernandes GLUCOPHAGE 1000 MG ORAL TABLET Take one (1) tablet by mouth twice a day 1 METFORMIN HCL 03055369263 Shireen Fernandes COLACE 100 MG CAPS Take one (1) tablet by mouth twice a day as needed DOCUSATE SODIUM 65712611586 Shireen Fernandes BISOPROLOL FUMARATE 5 MG TABS Take 1 tablet by mouth daily BISOPROLOL FUMARATE 09480407747 Shireen Fernandes ADULT ASPIRIN REGIMEN 81 MG ORAL TABLET DELAYED RELEASE Take one (1) tablet by mouth twice a day ASPIRIN 77586361864 Shireen Fernandes AMOXICILLIN 875 MG TABS Take one (1) tablet by mouth twice a day AMOXICILLIN 04664170532 Shireen Fernandes BISOPROLOL FUMARATE 5 MG TABS 1 tab daily BISOPROLOL FUMARATE 55103391841 Shireen Fernandes ELIQUIS 2.5 MG TABS 1 tab, BID APIXABAN 52732391354 Shireen Fernandes [facility] IRON 325 (65 Fe) MG TABS 1 tab daily FERROUS SULFATE 84950548238 Shireen Fernandes GLUCOPHAGE 1000 MG ORAL TABLET 1 tab, BID METFORMIN HCL 56403126373 Shireen Fernandes EQ OMEPRAZOLE 20 MG TBEC 1 tab, at bedtime OMEPRAZOLE 41045646696 Shireen Fernandes VIIBRYD 40 MG TABS 1 tab, at bedtime VILAZODONE HCL 99906624405 Shireen Fernandes NOVOLOG MIX 70/30 FLEXPEN (70-30) 100 UNIT/ML SUPN Takes 20 units at breakfast and 6 units at dinner INSULIN ASPART PROT & ASPART 37559295700 Shireen Fernandes SPIRIVA HANDIHALER 18 MCG CAPS Takes two inhalations daily TIOTROPIUM BROMIDE MONOHYDRATE 86754351518 Shireen Fernandes MOTRIN IB 200 MG TABS Takes 400mg every 6 hours for pain as needed. IBUPROFEN 44666021077 Shireen Fernandes CEFTRIAXONE SODIUM Rocephin 2G IV [id number] RIDGE(Caretender s administers at [facility])/[facility] dose, labs, PICC care 3 CEFTRIAXONE SODIUM Jayla W MOTRIN IB 200 MG TABS Takes 400mg every 6 hours for pain as needed. 5 IBUPROFEN 91701444523 May Munoz SPIRIVA HANDIHALER 18 MCG CAPS Takes two inhalations daily TIOTROPIUM BROMIDE MONOHYDRATE 75791435530 May Munoz NOVOLOG MIX 70/30 FLEXPEN (70-30) 100 UNIT/ML SUPN Takes 20 units at breakfast and 6 units at dinner INSULIN ASPART PROT & ASPART 75358299514 May Munoz COLACE 100 MG CAPS 1 cap, PRN, BID DOCUSATE SODIUM 01453123750 May Munoz PERCOCET 5-325 MG TABS 1 tab, PRN, Q4H 1 OXYCODONE-ACET AMINOPHEN 82996546566 May Munoz CEFTRIAXONE SODIUM Rocephin 2G IV [id number] RIDGE(Caretender s administers at [facility])/[facility] dose, labs, PICC care 3 CEFTRIAXONE SODIUM Caroline Meza RN CEFTRIAXONE SODIUM Rocephin 2G IV [id number] RS/P[facility]AL CARE [facility]IL [facility] 3 CEFTRIAXONE SODIUM Caroline Meza RN VIIBRYD 40 MG TABS 1 tab, at bedtime VILAZODONE HCL 38338323478 Shireen Fernandes PERCOCET 5-325 MG TABS 1 tab, PRN, Q4H 1 OXYCODONE-ACET AMINOPHEN 31780942473 Shireen Fernandes EQ OMEPRAZOLE 20 MG TBEC 1 tab, at bedtime 1 OMEPRAZOLE 28624351300 Shireen Fernandes GLUCOPHAGE 1000 MG ORAL TABLET 1 tab, BID 1 METFORMIN HCL 30709714602 Shireen Fernandes [facility] IRON 325 (65 Fe) MG TABS 1 tab daily FERROUS SULFATE 49028696878 Shireen Fernandes ELIQUIS 2.5 MG TABS 1 tab, BID APIXABAN 95421725224 Shireen Fernandes COLACE 100 MG CAPS 1 cap, PRN, BID DOCUSATE SODIUM 41370995106 Shireen Fernandes BISOPROLOL FUMARATE 5 MG TABS 1 tab daily BISOPROLOL FUMARATE 18633368489 Shireen Fernandes Medications Administered No information available. Allergies, Adverse Reactions, Alerts No information available. Results Date Name Value Unit Range Flag Description Clinical Lists Update: Prelo ad HGBA1C 10.7 % Hemoglobin A1c/Hemoglobin, total in Blood - % External Other: Patient port al update - Email PushmSpot ... PAT E-MAIL @AfterSteps patient's e-mail address External Other: Patient port al update - EmailStatus, Crashlytics ... PATPORTALPIN Active This deena l be used to establish a PIN number for patients to register in the Patient Portal. Lab Report: CBC WITH AUTO DI FFERENTIAL [id number] 0.0 /100 WBC 0.0-0.2 GE use only - fo r LinkLogic import when terms are not otherwise specified IMMATUREGRAN 0.07 10*3/MM3 0.00-0.05 H Immature granulocytes [#/volume] in Blood BASO# 0.04 10*3/mm3 0.00-0.20 Basophils [#/vol ume] in Blood EOS ABSLT 0.28 10*3/uL 0.00-0.40 Eosinophi ls [#/volume] in Blood MONOSCT AUTO 0.43 10*3/uL 0.10-0.90 Monocy monik [#/volume] in Blood by Automated count IMM GRANU % 1.2 % 0.0-0.5 H Immature granulocytes/100 leukocytes in Blood % EOS AUTO 4.8 % 0.3-6.2 Eosinophil s/100 leukocytes in Blood by Automated count MONOCYTE % 7.4 % 5.0-12.0 Monocytes /100 leukocytes in Blood by Automated count LYMPHOCY BF 13.2 % 19.6-45.3 L lymphoc ytes as percent of body fluid leukocytes RDW 18.7 % 12.3-15.4 H Erythrocyte distribution width [Ratio] by Automated count MCHC 31.9 G/DL 31.5-35.7 MCHC [Mass/ volume] by Automated count MCH 28.7 pg 26.6-33.0 MCH [Entiti c mass] by Automated count MCV 90.0 fL 79.0-97.0 MCV [Entiti c volume] by Automated count Lab Report: COMPREHENSIVE ME TABOLIC PANEL ANIONGAP 17.0 mmol/L 5.0-15.0 H anion gap, serum BUN/CREAT 23.9 7.0-25.0 Urea nitrogen/Creatinine [Mass Ratio] in Serum or Plasma GFRC 51 mL/min/1. 73m2 >60 L Glomerular Filtration Rate Calculation ALBUMIN 4.00 g/dL 3.50-5.20 Albumin [Mass/volume] in Serum or Plasma PROTEIN, TOT 7.1 g/dL 6.0-8.5 Protein [Mass/volume] in Serum or Plasma CO2 21.0 mmol/L 22.0-29.0 L Carbon diox kirby, total [Moles/volume] in Venous blood CHLORIDE 101 mmol/L 98-107 Chloride [Moles/volume] in Serum or Plasma Chart Maintenance: labs upda ollie - drawn 11/21 ESR 21 mm/h Erythrocyte sedimentation rate by Westergren method CRP 0.7 mg/dL C reactive pr otein [Mass/volume] in Serum or Plasma LYMPHCT AUTO 0.7 10*3/mm3 Lymphoc ytes [#/volume] in Blood by Automated count LYMPHS % 17 % Lymphocytes/ 100 leukocytes in Blood by Automated count ABS NEUTROPH 2.8 10*3/uL Neutroph ils [#/volume] in Blood NEUTROP BF 73 % Neutrophil s/100 leukocytes in Body fluid PLATELETS 274 10*3/mm3 Platelets [#/volume] in Blood by Automated count HCT 37.8 % Hematocrit [V olume Fraction] of Blood by Automated count HGB 12.8 g/dL Hemoglobin [Mass/volume] in Blood RBC 4.12 10*6/mm3 Erythrocytes [#/volume] in Blood by Automated count WBC 3.9 10*3/mm3 Leukocytes [#/volume] in Blood by Automated count BILI TOTAL 0.3 mg/dL Bilirubin. total [Mass/volume] in Serum or Plasma SGOT (AST) 8 U/L Aspartate aminotransferase [Enzymatic activity/volume] in Serum or Plasma SGPT (ALT) 14 U/L Alanine aminotransferase [Enzymatic activity/volume] in Serum or Plasma ALK PHOS 85 U/L Alkaline yoanna sphatase [Enzymatic activity/volume] in Blood CREATININE 1.6 mg/dL Creatinine [Mass/volume] in Serum or Plasma BUN 28 mg/dL Urea nitrogen [Mass/volume] in Serum or Plasma CALCIUM 8.4 mg/dL Calcium [Moles/volume] in Serum or Plasma POTASSIUM 5.0 mmol/L Potassium [Moles/volume] in Serum or Plasma SODIUM 133 mmol/L Sodium [Moles/volume] in Serum or Plasma GLUCOSE SER 264 mg/dL Glucose [Mass/volume] in Serum or Plasma Office Visit: rm 3 tele MEDS REVIEW Done Documenta tion of current medications (procedure) ORALTOBACUSE Never Tobacco smoking status SMOK STATUS Never smoker Tobacco smoking status Plan of Care Type Date Detail Pending order STAT Labs Pending order CBC with Differe ntial Pending order Sedimentation Ra te (ESR) Pending order C- reactive prot ein Pending order CMP Pending order STAT Labs Pending order STAT Labs Pending order CMP Pending order CBC with Differe ntial Pending order C- reactive prot ein Pending order Sedimentation Ra te (ESR) Pending order STAT Labs Pending order STAT Labs Pending order CMP Pending order CBC with Differe ntial Pending order C- reactive prot ein Pending order Sedimentation Ra te (ESR) Pending order Stat Weekly Labs Patient education centlidsmpp Patient education Medications Patient education Medications Procedures Code Procedure Name Date Entry Date CPT-sl STAT Labs [id number] CBC with Differential 2019 CPT-36057 Sedimentation Rate (ESR) 202 CPT-47961 C- reactive protein CPT-87157 CMP CPT-sl STAT Labs CPT-sl STAT Labs CPT-75674 CMP [id number] CBC with Differential 2019 CPT-59011 C- reactive protein CPT-69815 Sedimentation Rate (ESR) 202 CPT-sl STAT Labs CPT-sl STAT Labs CPT-81143 CMP [id number] CBC with Differential 2019 CPT-27300 C- reactive protein CPT-75722 Sedimentation Rate (ESR) 202 CPT- stat weekly Stat Weekly Labs Vital Signs Date Name Value Unit Description BMI (Body Mass Index) 27.66 kg/m2 Bod y Mass Index (Ratio) BP Diastolic 83 mm[Hg] blood pressu re, diastolic BP Systolic 133 mm[Hg] blood pressur e, systolic Heart Rate 61 /min pulse rate Weight Measured 204.0 [lb_av] weight E& M Weight Measured 204.0 [lb_av] weight E& M Body Temperature 97.6 [degF] temperat ure E&M Respiratory Rate 16 /min respirat ory rate E&M Height 72 [in_us] height E&M Immunizations No information available. Advance Directives No information available.
--- OUTSIDE RECORDS SUMMARY | 2025-01-23 15:55 | XMS_ITS | Encounter Summary ---
Author Organization [email or web address] Address [address] [place] [address] Care Team Providers Care Friction Welding Machine Operator Name Role Phone Alfredo Aguiar MD Primary Care Provider + [phone] Alfredo Aguiar MD Primary Care Provider + [phone] Encounter Details Date Type Department Care Team (Late st Contact Info) Description 05/20/2019 Transcribed Document [facility] [place] Family [place] [facility] [place] [address] ProviderEryn MD [address] [place] [id number] Social History Tobacco Use Types Packs/Day Years Used Date Smoking Tobacco: Never Assessed Sex and Gender Information Value Date Recorded Sex Assigned at Not on file Legal Sex Male 5:45 PM CDT Gender Identity Not on file Sexual Orientation Not on file documented as of this encounter Miscellaneous Notes * Cerner Conversion Note - Eryn Arcos MD - 05/20/2019 4:51 PM CDT Pain Assessment Entered On: 05/22/2019 18:00 EDT Performed On: 05/22/2019 10:53 EDT by Marcelina Bojorquez, RN Intervention Information: oxyCODONE Performed by Marcelina Bojorquez, RN on 05/22/2019 09:53:00 EDT oxyCODONE,5mg Oral,Pain (Moderate 4-6) Pain Assessment Pain Assessment : Follow-up assessment Pain Scale Goal : 3 Pain Scale Used : 0-10 Scale Marcelina Bojorquez RN - 05/22/2019 18:00 EDT Pain Scale Intensity : 2 Marcelina Bojorquez RN - 05/22/2019 18:00 EDT Image 4 - Images currently included in the form version of this document have not been included in the text rendition version of the form. documented in this encounter Plan of Treatment Not on file documented as of this encounter Visit Diagnoses Not on filedocumented in this encounter Care Teams Friction Welding Machine Operator Relationship Specialty Start Date End Date Alfredo Aguiar MD [address] [place] [address] PCP - General Adolescent Medicine 10/16/22 10/19/22 Alfredo Aguiar MD [address] [place] [address] PCP - General Adolescent Medicine 10/20/22 documented as of this encounter
--- OUTSIDE RECORDS SUMMARY | 2025-01-23 15:55 | XMS_ITS | Encounter Summary ---
Author Organization [employer] Address [address] [place] [address] Care Team Providers Care Tune Up Mechanic Name Role Phone Alfredo Aguiar MD Primary Care Provider + [phone] Alfredo Aguiar MD Primary Care Provider + [phone] Encounter Details Date Type Department Care Team (Late st Contact Info) Description 08/18/2019 Transcribed Document [facility] Family [facility] [place] [address] ProviderEryn MD [address] [place] [address] Social History Tobacco Use Types Packs/Day Years Used Date Smoking Tobacco: Never Assessed Sex and Gender Information Value Date Recorded Sex Assigned at Not on file Legal Sex Male 5:45 PM CDT Gender Identity Not on file Sexual Orientation Not on file documented as of this encounter Miscellaneous Notes * Cerner Conversion Note - Eryn Arcos MD - 08/18/2019 8:09 AM GILL BOX FIXER Patient: LORA JAIN JR Age: 78 Years Sex: Male : 1940 Assessment/Plan Likely discharge tomorrow. Retained Hemovac and incisional VAC. Normal PT protocol otherwise. ID has recommended Rocephin in-house. Waiting on recommendation for type and duration of therapy after discharge. Patient plans to discharge to [facility] for closer inpatient rehabilitation due to no ambulation since May of last year. Case management consult for placement. 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 Patient is not ambulated since surgery. Patient and family concerned about muscle atrophy and fall risk as he has not been weightbearing since May 2019. They request detention facility. Vital Signs T: 36.4 ??C TMIN: 36.4 ??C TMAX: 36.9 ??C HR: 72(Monitored) RR: 16 BP: 95/54 SpO2: 97% Oxygen Settings (Last) Oxygen Therapy Mode: Room air (08/18/19 06:00:00) Oxygen Flow Rate: 8 Liter/Min (08/17/19 17:07:00) Intake & Output Totals Last 24 Hours (7a-7a) Input Total: 1752 mL Output Total: 920 mL Balance: 832 mL Physical Exam URBAN wrap is clean dry and secure. Leg lengths are grossly equal. Operative extremity is neurovascularly intact. Hemovac drain secure with modest output. Gavin incisional VAC secure. Medications Ambien, 5 mg= 1 Tab, Oral, At Bedtime, PRN aspirin, 325 mg= 1 Tab, Oral, BID Benadryl, 25 mg= 1 Tab, Oral, Q4H, PRN bisoprolol, 5 mg= 1 Tab, Oral, Daily Chloraseptic 6 mg-10 mg mucous membrane lozenge, 1 Lozenge, Oral, Q2H, PRN cloNIDine, 0.2 mg= 1 Tab, Oral, Q4H, PRN Colace, 100 mg= 1 Cap, Oral, BID Cyklokapron 1,000 mg + syringe 1 Each + Sodium Chloride 0.9% intravenous solution 15 mL Cyklokapron 2,000 mg + sodium chloride 0.9% injectable solution 5 mL + syringe 1 Each Dulcolax Laxative, 10 mg= 1 Supp, Rectal, BID, PRN ferrous gluconate, 324 mg= 1 Tab, Oral, Daily Fioricet, 1 Tab, Oral, Q6H, PRN Flexeril, 10 mg= 1 Tab, Oral, TID, PRN glycopyrrolate, 15.6 mcg= 1 Each, Inhalation, BID hydrALAZINE, 10 mg= 0.5 mL, IV Push, Q6H, PRN insulin lispro 76 kg - 100 kg, 76 kg - 100 kg scale, SubCutaneous, AC and at Bedtime Milk of Magnesia 8% oral suspension, 30 mL, Oral, TID, PRN MiraLax, 17 Gram= 1 Packet, Oral, Daily morphine, 2 mg= 1 mL, IV Push, Q2H, PRN multivitamin, 1 Tab, Oral, Daily naloxone, 0.1 mg= 0.25 mL, IV Push, Q5Min, PRN oxyCODONE, 5 mg= 1 Tab, Oral, Q4H, PRN oxyCODONE, 10 mg= 2 Tab, Oral, Q4H, PRN pantoprazole, 40 mg= 1 Tab, Oral, Daily Phenergan, 12.5 mg= 0.5 mL, IV Push, Q6H, PRN Rocephin ropivacaine 0.5% injectable solution 24.6 mL + EPINEPHrine 0.25 mg + cloNIDine 40 mcg + Sodium Chlo Senokot S, 2 Tab, Oral, At Bedtime simethicone, 80 mg= 1 Tab, Oral, Q6H, PRN Sodium Chloride 0.9% intravenous solution 1,000 mL, 1000 mL, IntraVENous Tylenol, 1000 mg= 2 Tab, Oral, Q6H Viibryd, 40 mg= 4 Tab, Oral, At Bedtime Zofran, 4 mg= 2 mL, IV Push, Q4H, PRN Lab Results Test Name Test Result Date/Time Sodium Level 136 mmol/L 08/18/2019 02:40 EST Potassium Level 4.4 mmol/L 08/18/2019 02:40 EST Chloride Level 102 mmol/L 08/18/2019 02:40 EST Carbon Dioxide Level 32 mmol/L 08/18/2019 02:40 EST Anion Gap 6 (Low) 08/18/2019 02:40 EST Glucose Level 237 mg/dL (High) 08/18/2019 02:40 EST Blood Urea Nitrogen 24 mg/dL (High) 08/18/2019 02:40 EST Creatinine Level 1.40 mg/dL (High) 08/18/2019 02:40 EST eGFR 59 mL/min/1.73m2 (Low) 08/18/2019 02:40 EST eGFR NonAfrican 49 mL/min/1.73m2 (Low) 08/18/2019 02:40 EST Bun/Creatinine 17.1 08/18/2019 02:40 EST Calcium Level 8.6 mg/dL 08/18/2019 02:40 EST Device Comment 1 Notified Nurse RBV 08/18/2019 05:44 EST Device Comment 1 Protocols Followed 08/17/2019 17:14 EST Device Comment 2 Notified Nurse RBV 08/17/2019 17:14 EST Glucose POC2 296 mg/dL (High) 08/18/2019 05:44 EST Glucose POC2 186 mg/dL (High) 08/17/2019 17:14 EST Glucose POC2 197 mg/dL (High) 08/17/2019 11:06 EST WBC 7.8 K/uL 08/18/2019 02:40 EST RBC 3.90 Million/uL (Low) 08/18/2019 02:40 EST Hgb 11.6 g/dL (Low) 08/18/2019 02:40 EST Hgb 11.9 g/dL (Low) 08/17/2019 17:21 EST Hct 35.9 % (Low) 08/18/2019 02:40 EST MCV 92.1 fL 08/18/2019 02:40 EST MCH 29.7 pg 08/18/2019 02:40 EST MCHC 32.3 Gram/dL 08/18/2019 02:40 EST Platelet Count 294 K/uL 08/18/2019 02:40 EST MPV 9.4 fL 08/18/2019 02:40 EST RDW 16.2 % (High) 08/18/2019 02:40 EST Neut % 86.0 % (High) 08/18/2019 02:40 EST Neut # 6.76 K/uL (High) 08/18/2019 02:40 EST Lymph % 3.1 % (Low) 08/18/2019 02:40 EST Lymph # 0.24 x10(3)/uL (Low) 08/18/2019 02:40 EST [place] % 9.6 % (High) 08/18/2019 02:40 EST [place] # 0.75 K/uL 08/18/2019 02:40 EST Eos % 0.5 % 08/18/2019 02:40 EST Eos # 0.04 x10(3)/uL 08/18/2019 02:40 EST Baso % 0.3 % 08/18/2019 02:40 EST Baso # 0.02 x10(3)/uL 08/18/2019 02:40 EST Slide Review No 08/18/2019 02:40 EST IG# 0.04 x10(3)/uL 08/18/2019 02:40 EST IG% 0.50 % 08/18/2019 02:40 EST ABO/Rh (ECHO) O POS 08/17/2019 11:19 EST Antibody Screen Negative ABSC 08/17/2019 11:19 EST Electronically signed by Interface, [facility] Conversion Compressor Station Engineer Chief Cerner at 11/18/2022 9:37 AM CDT documented in this encounter Plan of Treatment Not on file documented as of this encounter Visit Diagnoses Not on filedocumented in this encounter Care Teams Tune Up Mechanic Relationship Specialty Start Date End Date Alfredo Aguiar MD [address] [place] [address] PCP - General Adolescent Medicine 10/16/22 10/19/22 Alfredo Aguiar MD [address] [place] [address] PCP - General Adolescent Medicine 10/20/22 documented as of this encounter
--- OUTSIDE RECORDS SUMMARY | 2025-01-23 15:55 | XMS_ITS | Encounter Summary ---
Author Organization [employer] Address [address] [place] [address] Care Team Providers Care Polysomnography Technologist Name Role Phone Alfredo Aguiar MD Primary Care Provider + [phone] Alfredo Aguiar MD Primary Care Provider + [phone] Encounter Details Date Type Department Care Team (Late st Contact Info) Description 05/23/2019 Transcribed Document [facility] [facility] [place] [address] ProviderEryn MD [address] [place] [address] Social History Tobacco Use Types Packs/Day Years Used Date Smoking Tobacco: Never Assessed Sex and Gender Information Value Date Recorded Sex Assigned at Not on file Legal Sex Male 5:45 PM CDT Gender Identity Not on file Sexual Orientation Not on file documented as of this encounter Miscellaneous Notes * Cerner Conversion Note - Eryn Arcos MD - 05/23/2019 1:10 PM CDT Initial Discharge Planning Entered On: 05/23/2019 13:16 EDT Performed On: 05/23/2019 13:10 EDT by JUANY HERNANDEZ RN-Vice President & General Manager [employer] Initial Assessment I Previously Documented Living Environment : No qualifying data available. Living Situation : Home Patient Lives With : Spouse Is the Patient a Caregiver at Home? : No Emergency Contact #1 : Ashli Vázquez Emergency Contact #1 Emergency Contact #1 Relationship : Emergency Contact #2 : Raysa Luz Emergency Contact #2 Emergency Contact #2 Relationship : daughter JUANY HERNANDEZ RN-Vice President & General Manager [employer] - 05/23/2019 13:10 EDT Initial Assessment II Sensory and Motor Deficits : None JUANY HERNANDEZ RN-Vice President & General Manager [employer] - 05/23/2019 13:10 EDT Discharge Needs I Anticipated Discharge Date : 05/23/2019 EDT Anticipated Discharge To, CM : [facility] facility Current Home Treatment/Equipment : Current Home Treatment/Equipment No qualifying data available. Documentation Status Complete : Yes JUANY HERNANDEZ RN-Vice President & General Manager [employer] - 05/23/2019 13:10 EDT Discharge Needs II Professional Skilled Services : Professional Skilled Services No qualifying data available. Needs Assistance with Transportation : Yes Discharge Options Discussed with Patient : Short term rehabilitation JUANY HERNANDEZ RN-Vice President & General Manager [employer] - 05/23/2019 13:10 EDT Narrative Note Narrative Note : 78yo male pt s/p LTK revision. Met with pt and family at bedside this am to discuss DCP. They request rehab at [facility], referral sent via Sanjay and informed Colleene. PICC placed today for IV abx, ID will follow pt at rehab. Pt has bed on SRU today. [facility] WC Van @ 1615. No other CM needs identified. JUANY HERNANDEZ RN-Vice President & General Manager [employer] - 05/23/2019 13:10 EDT Electronically signed by [facility] Conversion Casket Coverer Cerner at 11/18/2022 9:38 AM CDT documented in this encounter Plan of Treatment Not on file documented as of this encounter Visit Diagnoses Not on filedocumented in this encounter Care Teams Polysomnography Technologist Relationship Specialty Start Date End Date Alfredo Aguiar MD [address] [place] [address] PCP - General Adolescent Medicine 10/16/22 10/19/22 Alfredo Aguiar MD [address] [place] [address] PCP - General Adolescent Medicine 10/20/22 documented as of this encounter
--- OUTSIDE RECORDS SUMMARY | 2025-01-23 15:55 | XMS_ITS | Encounter Summary ---
Author Organization [employer] Address [address] [place] [address] Care Team Providers Care Van Helper Name Role Phone Alfredo Aguiar MD Primary Care Provider + [phone] Alfredo Aguiar MD Primary Care Provider + [phone] Encounter Details Date Type Department Care Team (Late st Contact Info) Description 08/18/2019 Transcribed Document [facility] [place] [facility] [place] [address] ProviderEryn MD [address] [place] [id number] Social History Tobacco Use Types Packs/Day Years Used Date Smoking Tobacco: Never Assessed Sex and Gender Information Value Date Recorded Sex Assigned at Not on file Legal Sex Male 5:45 PM CDT Gender Identity Not on file Sexual Orientation Not on file documented as of this encounter Miscellaneous Notes * Cerner Conversion Note - Eryn ProviderMD - 08/18/2019 2:25 PM USER SUPPORT SPECIALIST On Going Discharge Planning Entered On: 08/18/2019 14:26 EST Performed On: 08/18/2019 14:25 EST by JUANY HERNANDEZ RN-Dairy GrazerAviculturist Progress Note Discharge Arrangements : Patient Post-Acute Information Patient Name: LORA JAIN JR Gender: Male : [birth year] Age: 78 Years [place] Referral(s): Service: Organization: Business Address: Phone Number: Care Home Facility [facility] [address] [facility] [address] [place], [address] Discharge Options Discussed with Patient : Home Health, Short term rehabilitation Barriers to Discharge Identified : 3 Day Qualifying Stay for SNF Barriers to Discharge Unresolved : 3 Day Qualifying Stay for SNF JUANY HERNANDEZ, RN-Dairy Grazer - 08/18/2019 14:25 EST documented in this encounter Plan of Treatment Not on file documented as of this encounter Visit Diagnoses Not on filedocumented in this encounter Care Teams Van Helper Relationship Specialty Start Date End Date Alfredo Aguiar MD [address] [place] [address] PCP - General Adolescent Medicine 10/16/22 10/19/22 Alfredo Aguiar MD [address] [place] [address] PCP - General Adolescent Medicine 10/20/22 documented as of this encounter
--- OUTSIDE RECORDS SUMMARY | 2025-01-23 15:55 | XMS_ITS | Encounter Summary ---
Author Organization [employer] Address [address] [place] [address] Care Team Providers Care Hair Spinning Machine Operator Name Role Phone Alfredo Aguiar MD Primary Care Provider + [phone] Alfredo Aguiar MD Primary Care Provider + [phone] Encounter Details Date Type Department Care Team (Late st Contact Info) Description 08/04/2019 Transcribed Document [facility] [place] [facility] [place] [address] ProviderEryn MD [address] [place] [id number] Social History Tobacco Use Types Packs/Day Years Used Date Smoking Tobacco: Never Assessed Sex and Gender Information Value Date Recorded Sex Assigned at Not on file Legal Sex Male 5:45 PM CDT Gender Identity Not on file Sexual Orientation Not on file documented as of this encounter Miscellaneous Notes * Cerner Conversion Note - Eryn ProviderMD - 08/04/2019 9:48 AM EDGER TECHNICIAN PAT Adult Entered On: 08/04/2019 9:49 EST Performed On: 08/04/2019 9:48 EST by Marta Zurita RN Vital Measurements Temperature Source : Temporal artery scanning Temperature, Fahrenheit : 97.1 Deg F Clinical Temperature, C : 36.2 Deg C Pulse Method : Pulse Oximetry Peripheral Pulse Rate : 67 bpm Respiratory Rate : 20 Breaths/Min Blood Pressure Location : Arm, left upper Blood Pressure Source : Non-Invasive BP Device Blood Pressure Position : Sitting Systolic Blood Pressure : 98 mmHg Diastolic Blood Pressure : 61 mmHg Oxygen Saturation : 99 % Oxygen Therapy Mode : Room air Marta Zurita RN - 08/04/2019 11:05 EST Pain Assessment Pain Assessment : Initial assessment Pain Scale Goal : 4 Marta Zurita RN - 08/04/2019 11:05 EST Height and Weight, Clinical Dosing Height Source : Measured Height Entry Format : Dukes Height, Feet : 0 ft(Converted to: 0 cm, 0 Inch) Height, Inches : 72 Inch(Converted to: 6 ft 0 Inch, 182.88 cm) Clinical Height : 182.88 cm Weight Source : Standing scale Weight Entry Format : Dukes Clinical Dosing Weight : 86.45 kg Weight, Pounds : 190.2 lb Body Surface Area (BSA) : 2.09 m2 Body Mass Index : 25.8 kg/m2 (HI) [place] Body Weight : 77 kg Marta Zurita RN - 08/04/2019 9:48 EST Health Histories Smoking Status : Never (less than 100 in lifetime; none in last 30 days) Smokeless Tobacco Status : Never Marta Zurita RN - 08/04/2019 10:20 EST Implant/Device Type, General Utility Worker and Model : hernia clips< LEft knee spacer, EVAN Drake RN - 08/17/2019 10:51 EST Social History (As Of: 08/17/2019 10:53:12 EST) Tobacco: Never (less than 100 in lifetime) Smoking Status. Never Smokeless Tobacco Status. Second Hand Smoke Exposure: Yes. 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 Alcohol Use Frequency Rarely. (Last Updated: 03/24/2018 13:52:20 EDT by HERMAN LARSEN RN) Substance Abuse: Drug Use Hx: No. Use in Last 12 Months: No. (Last Updated: 03/24/2018 13:52:32 EDT by HERMAN LARSEN, RN) Infectious Disease History Fever/Chills Last 48 Hours : No EVAN Drake RN - 08/17/2019 10:51 EST Infectious Disease History : Chicken pox/Shingles, Measles, Other: staph in left knee joint prosthesis Travel To Regions with Travel Advisories : No Travel Outside [place] Within Last 30 Days : No Contact With Traveler to Advisory Region : No Tuberculosis Symptoms : None Marta Zurita RN - 08/04/2019 10:20 EST Anesthesia/Transfusion History Blood Transfusion Acceptable to Patient : Yes Marta Zurita RN - 08/04/2019 10:31 EST Family History of Anesthesia Reaction : No prior transfusion(s) Transfusion History : Prior anesthesia without reaction Family History of Anesthesia Reaction : None Marta Zurita RN - 08/04/2019 10:20 EST Advance Directive Patient has Advance Directive *Q : Yes, Advance Directive on file Advance Directive Type : Living will Copy Advance Directive Verified/on Chart : Yes Marta Zurita RN - 08/04/2019 10:31 EST Spiritual/Cultural Needs Any Spiritual/Cultural Needs or Requests : Yes Spiritual/Cultural Needs Comment : prayer prior to surgery in 08/17/19 Spiritual/Cultural Needs Comment : prayer prior to surgery in 08/17/19 Marta Zurita RN - 08/04/2019 10:31 EST [place] Suicide Severity Rating Scale (C-SSRS) CSSRS Past Month Wish to be : No CSSRS Past Month Suicidal Thoughts : No CSSRS Lifetime Suicide Behavior : No Suicide Severity Rating Score : 0 Suicide Severity Rating : No Additional Care Required at this time Marta Zurita RN - 08/04/2019 10:31 EST Psychosocial History Do You Have a History of the Following? : Depression, Post Traumatic Stress Disorder Currently in Unsafe Situation : No Marta Zurita RN - 08/04/2019 10:31 EST Teaching/Learning Assessment Barriers To Learning : None evident Individuals Taught : Patient, Child Readiness to Learn : Cooperative Baseline Knowledge of Topic : Good Marta Zurita RN - 08/04/2019 11:05 EST Education Topics, Periop Preadmission Perioperative Education Grid Arrival Time/Place : Verbalizes understanding CHG Preoperative Bathing/Cloths : Verbalizes understanding IV's : Verbalizes understanding NPO Status/Directions : Verbalizes understanding Preprocedure Preparations : Verbalizes understanding Preprocedure Tests/Labs : Verbalizes understanding Take/Hold Medications Pre-Procedure : Verbalizes understanding Marta Zurita RN - 08/04/2019 11:05 EST General Info Patient Arrival Date/Time : 08/17/2019 9:16 EST EVAN Drake RN - 08/17/2019 10:51 EST Arrived From : Assisted living Information Obtained From : Patient, Daughter Marta Zurita RN - 08/04/2019 11:05 EST Preferred Name : Mele Support Person/Patient Asset Administrator : Yes Want Family/Rep/Phys Notified of Admit : No Emergency Contact #1 : Raysa Escobar Emergency Contact #1 Emergency Contact #1 Relationship : daughter Emergency Contact #2 : Jessa Vázquez Emergency Contact #2 Emergency Contact #2 Relationship : daughter Primary Language : Sudanese Preferred Communication Mode : Verbal Communication Barrier : None Marta Zurita RN - 08/04/2019 10:31 EST Jared Scale Jared Sensory Perception : Slightly limited (Comment: wears glasses [Marta Zurita RN - 08/04/2019 11:05 EST] ) Jared Moisture : Occasionally moist Jared Activity : Chairfast Jared Mobility : Slightly limited (Comment: left leg immobilized [Marta Zurita RN - 08/04/2019 11:05 EST] ) Jared Nutrition : Adequate Jared Friction and Shear : Potential problem Jared Score : 16 Marta Zurita RN - 08/04/2019 11:05 EST Sleep Apnea Risk Assmt BiPAP/CPAP Ordered for Home Use : Yes Hx of Obstructive Sleep Apnea Diagnosis : Yes BiPAP/CPAP Used at Home : Yes Age over 50 Years Old : Yes Gender Male : Yes Marta Zurita RN - 08/04/2019 10:31 EST Electronically signed by Edward [place] Conversion Hydrometeorological Technician Cerner at 11/18/2022 9:18 AM CDT documented in this encounter Plan of Treatment Not on file documented as of this encounter Visit Diagnoses Not on filedocumented in this encounter Care Teams Hair Spinning Machine Operator Relationship Specialty Start Date End Date Alfredo Aguiar MD [address] [place] [address] PCP - General Adolescent Medicine 10/16/22 10/19/22 Alfredo Aguiar MD [address] [place], [place] [address] PCP - General Adolescent Medicine 10/20/22 documented as of this encounter
--- OUTSIDE RECORDS SUMMARY | 2025-01-23 15:55 | XMS_ITS | Encounter Summary ---
Author Organization [employer] Address [address] [place] [address] Care Team Providers Care Transmission Systems Operator Name Role Phone Alfredo Aguiar MD Primary Care Provider + [phone] Alfredo Aguiar MD Primary Care Provider + [phone] Encounter Details Date Type Department Care Team (Late st Contact Info) Description 08/18/2019 Transcribed Document [facility] Family Medicine [facility] [place] [address] ProviderEryn MD [address] [place] [id number] Social History Tobacco Use Types Packs/Day Years Used Date Smoking Tobacco: Never Assessed Sex and Gender Information Value Date Recorded Sex Assigned at Not on file Legal Sex Male 5:45 PM CDT Gender Identity Not on file Sexual Orientation Not on file documented as of this encounter Miscellaneous Notes * Cerner Conversion Note - Eryn ProviderMD - 08/18/2019 11:09 AM MECHANIC [facility]EL[facility] Authorization Entered On: 08/18/2019 11:09 EST Performed On: 08/18/2019 11:09 EST by Ethel Bowen Rn-Utilization Review Primary Insurance Authorization Authorization and Policy Numbers : Insurance 1 Health Plan: MEDICARE Policy Number: [id number] Authorization Number: Insurance 2 Health Plan: [employer] Policy Number: [id number] Authorization Number: Insurance Primary Name : Medicare [id number] Authorized Service Begin Date-Primary : 08/17/2019 EST Historical Authorization Comments-Primary : Comment 1: pt scheduled as OUTPT for total knee on 08-17-2019 medicare: NPR (JASWANT PALMA, Rn Outpatient Surgery 08/16/2019 13:25) Ethel Bowen, Rn-Utilization Review - 08/18/2019 11:09 EST Electronically signed by [place], [facility] Conversion Iuss Acoustic Analyst Cerner at 11/18/2022 9:29 AM CDT documented in this encounter Plan of Treatment Not on file documented as of this encounter Visit Diagnoses Not on filedocumented in this encounter Care Teams Transmission Systems Operator Relationship Specialty Start Date End Date Alfredo Aguiar MD [address] [place] [id number] PCP - General Adolescent Medicine 10/16/22 10/19/22 Alfredo Aguiar MD [address] [place] [address] PCP - General Adolescent Medicine 10/20/22 documented as of this encounter
--- OUTSIDE RECORDS SUMMARY | 2025-01-23 15:55 | XMS_ITS | Encounter Summary ---
Author Organization [facility] [employer] Address [address] [place] [address] Care Team Providers Care Contract Mail Carrier Name Role Phone Alfredo Aguiar MD Primary Care Provider + [phone] Alfredo Aguiar MD Primary Care Provider + [phone] Encounter Details Date Type Department Care Team (Late st Contact Info) Description 08/17/2019 Transcribed Document [facility] Family Medicine [facility] [place] [address] ProviderEryn MD [address] [place] [address] [id number] Social History Tobacco Use Types Packs/Day Years Used Date Smoking Tobacco: Never Assessed Sex and Gender Information Value Date Recorded Sex Assigned at Not on file Legal Sex Male 5:45 PM CDT Gender Identity Not on file Sexual Orientation Not on file documented as of this encounter Miscellaneous Notes * Cerner Conversion Note - Eryn Arcos MD - 08/17/2019 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 Name: LORA JAIN JR/Sex: 1940 Male Med Rec #: [id number] Physician: LION DAVIS MD-ORT Financial #: [id number] Pt. Type: I Room/Bed: [facility]/ Admit/Disch: 08/17/19 07:12:00 - Institution: [facility] IntraOp Case Attendance Entry 1 Entry 2 Entry 3 Case Attendee LION DAVIS BARNES, DEVON, COURTNEY-Ashanti Marrufo RN MD-ORT Role Performed Surgeon/Proceduralist, ROOM DESIGNER/Nurse Fly Setter Patient Access, First First Time In 08/17/19 13:43:00 08/17/19 13:43:00 08/17/19 13:43:00 Time Out 08/17/19 17:03:00 08/17/19 15:08:00 08/17/19 16:22:00 Procedure Knee Total Joint Knee Total Joint Knee Total Joint Revision(Left) Revision(Left) Revision(Left) Other Attendee Superficial Wound Closed By: Last Modified By: Faina Fernandes Rn Parker, Gwendolyn, Rn Parker, Gwendolyn, Rn 08/17/19 17:08:20 08/17/19 17:08:20 08/17/19 17:08:20 Entry 4 Entry 5 Entry 6 Case Attendee Mitra Frazier ST ROBERTSON, BRAEDEN KIMBROUGH NA BRADLEY, PA-ORElizabeth Role Performed Scrub, First Physician business development assistant ROOM DESIGNER/Nurse Fly Setter Time In 08/17/19 13:43:00 08/17/19 13:43:00 08/17/19 15:08:00 Time Out 08/17/19 17:03:00 08/17/19 17:03:00 08/17/19 16:05:00 Procedure Knee Total Joint Knee Total Joint Knee Total Joint Revision(Left) Revision(Left) Revision(Left) Other Attendee Superficial Wound Closed By: Last Modified By: Faina Fernandes Rn Parker, Gwendolyn, Rn Parker, Gwendolyn, Rn 08/17/19 17:08:20 08/17/19 17:08:20 08/17/19 17:08:20 Entry 7 Entry 8 Case Attendee YEIMI PARRA CRNA Parker, Gwendolyn, Rn Role Performed ROOM DESIGNER/Nurse Fly Setter Patient Access, First Time In 08/17/19 16:05:00 08/17/19 16:20:00 Time Out 08/17/19 17:03:00 08/17/19 17:03:00 Procedure Knee Total Joint Knee Total Joint Revision(Left) Revision(Left) Other Attendee RELIEF Superficial Wound Closed By: Last Modified By: Faina Fernandes Rn Parker, Gwendolyn, Rn 08/17/19 17:08:20 08/17/19 17:08:20 [facility] IntraOp Case Attendance Audit 08/17/19 17:08:20 Paramedic Rn: AMOSNARL Modifier: JACK 1 <+> Time Out 1 <*> Procedure Knee Total Joint Revision(Left) 2 <*> Procedure Knee Total Joint Revision(Left) 3 <*> Procedure Knee Total Joint Revision(Left) 4 <+> Time Out 4 <*> Procedure Knee Total Joint Revision(Left) 5 <+> Time Out 5 <*> Procedure Knee Total Joint Revision(Left) 6 <*> Procedure Knee Total Joint Revision(Left) 7 <+> Time Out 7 <*> Procedure Knee Total Joint Revision(Left) 8 <+> Time Out 8 <*> Procedure Knee Total Joint Revision(Left) 08/17/19 16:22:08 Paramedic Rn: MAYNARL Modifier: MAYNARL 3 <+> Time Out 3 <*> Procedure Knee Total Joint Revision(Left) 08/17/19 16:20:54 Paramedic Rn: MAYNARL Modifier: MAYNARL <+> 8 Case Attendee <+> 8 Role Performed <+> 8 Time In <+> 8 Procedure <+> 8 Other Attendee 08/17/19 16:07:45 Paramedic Rn: MAYNARL Modifier: MAYNARL 6 <+> Time Out 6 <*> Procedure Knee Total Joint Revision(Left) <+> 7 Case Attendee <+> 7 Role Performed <+> 7 Time In <+> 7 Procedure 08/17/19 15:08:45 Paramedic Rn: MAYNARL Modifier: MAYNARL 1 <*> Procedure Knee Total Joint Revision(Left) 2 <+> Time In 2 <+> Time Out 2 <*> Procedure Knee Total Joint Revision(Left) 3 <+> Time In 3 <*> Procedure Knee Total Joint Revision(Left) 4 <+> Time In 4 <*> Procedure Knee Total Joint Revision(Left) 5 <+> Time In 5 <*> Procedure Knee Total Joint Revision(Left) <+> 6 Case Attendee <+> 6 Role Performed <+> 6 Time In <+> 6 Procedure [facility] IntraOp Case Times Entry 1 Patient In Room Time 08/17/19 13:43:00 Out Room Time 08/17/19 17:03:00 Anesthesia Start Time 08/17/19 13:43:00 Stop Time 08/17/19 17:03:00 Surgery / Procedure Times Start Time 08/17/19 14:22:00 Stop Time 08/17/19 16:49:00 Last Modified By: Faina Fernandes Rn 08/17/19 17:08:16 [facility] IntraOp Case Times Audit 08/17/19 17:08:16 Paramedic Rn: MADISON Modifier: MEETARKER <+> 1 Out Room Time <+> 1 Stop Time <+> 1 Stop Time 08/17/19 14:25:02 Paramedic Rn: MADISON Modifier: MADISON <+> 1 Start Time [facility] IntraOp Cautery Entry 1 ESU Identification Cautery Type Monopolar ESU ID Number [id number] ID Type Hospital Number Cautery Settings Cut Setting 50 Coag Setting 50 ESU Grounding Pad Ground Pad Type Adult Grounding Pad Site Right thigh Grounding Pad Ashanti Bolaños RN Applied By Grounding Pad Site Warm, dry and intact Skin Condition Before Cautery Grounding Pad Site Unchanged Skin Condition After Cautery Last Modified By: Ashanti Bolaños RN 08/17/19 13:51:01 [facility] IntraOp Communication Entry 1 Entry 2 Entry 3 Communication To Family/Significant other Family/Significant other Family/Significant other Comment START UPDATE CLOSING Communication By Ashanti Bolaños RN Maynard, Leanne, Ashanti Kuo, ELICEO Date and Time 08/17/19 14:25:00 08/17/19 15:29:00 08/17/19 16:13:00 Last Modified By: Ashanti Bolaños RN Maynard, Leanne, RN Maynard, Leanne, RN 08/17/19 14:25:11 08/17/19 15:29:58 08/17/19 16:13:07 [facility] IntraOp Communication Audit 08/17/19 16:13:07 Paramedic Rn: MADISON Modifier: MAYNARL <+> 3 Communication By <+> 3 Date and Time <+> 3 Communication To <+> 3 Comment 08/17/19 15:29:58 Paramedic Rn: MADISON Modifier: MADISON <+> 2 Communication By <+> 2 Date and Time <+> 2 Communication To <+> 2 Comment [facility] IntraOp Counts Verification Entry 1 Procedure Knee Total Joint Revision(Left) Count Info Count Type Sponge, Sharps, Miscellaneous Counts Verification Baseline/pre-procedure Sequence Count Results Not Applicable Counts Performed By Count Performed By Mitra Frazier ST (Scrub) Count Performed By Ashanti Bolaños RN (RN) Last Modified By: Ashanti Bolaños RN 08/17/19 13:50:33 [facility] IntraOp Counts Final Entry 1 Procedure Knee Total Joint Revision(Left) Final Count Info Count Type Sponge, Sharps, Miscellaneous Counts Verification Skin Closure/end of Sequence procedure Count Results Correct, surgeon notified Counts Performed By Count Performed By Mitra Frazier ST (Scrub) Count Performed By Ashanti Bolaños RN (RN) Last Modified By: Ashanti Bolaños RN 08/17/19 16:20:42 [facility] IntraOp Cultures and Spec Summary Entry 1 Cultrures and Specimens Specimen Ordered: Yes Test(s) Routine/Path-Lab Requested/Final Disposition Last Modified By: Ashanti Bolaños RN 08/17/19 13:51:07 [facility] IntraOp Departure from OR Entry 1 Integumentary Assessment Integumentary WDL Assessment WDL Transfer/Handoff Transfer to PACU Phase I Handoff Method Bedside/Face to face, Phone call Post-op Transport Stretcher/Gurrosie Via Patient Transport BRAEDEN MEIER NA, Accompanied by NINOSKA LOUIE PA-ORT Last Modified By: Ashanti Bolaños RN 08/17/19 15:08:54 [facility] IntraOp Departure from OR Audit 08/17/19 15:08:54 Paramedic Rn: MADISON Modifier: MADISON 1 <*> Patient Transport Accompanied by LISBETH BRYANT CRNA-CRYS [facility] IntraOp Drains and Tubes Entry 1 Device Type Hemovac Size MEDIUM Drain/Tube Activity Inserted Device Location LEFT KNEE Tube Dressing Dry, Intact Condition Last Modified By: Ashanti Bolaños RN 08/17/19 16:21:16 [facility] IntraOp Dressing and Packing Entry 1 Type Dressing Location OPSITE Last Modified By: Ashanti Bolaños RN 08/17/19 14:27:31 [facility] IntraOp Fire Risk Assessment Entry 1 Fire Info Surgical Site or 0- No Incision Above the Xyphoid Open O2 Source 0- No (Mask or Cannula) Available Ignition 1- Yes (ESU, Laser, Light Source) Fire Risk 1 Assessment Score Fire Score Fire Risk Yes Assessment Complete Fire Risk Ashanti Bolaños RN Assessment Verified By Fire Risk 08/17/19 13:43:00 Assessment Verified Date/Time Fire Risk Standard Fire Yes Safety Precautions Followed Last Modified By: Ashanti Bolaños RN 08/17/19 13:50:35 [facility] IntraOp Fire Risk Assessment Audit 08/17/19 13:50:35 Paramedic Rn: MADISON Modifier: MAYNARL <+> 1 Fire Risk Assessment Verified By 08/17/19 13:49:49 Paramedic Rn: MADISON Modifier: MAYNARL <+> 1 Surgical Site or Incision Above the Xyphoid <+> 1 Open O2 Source (Mask or Cannula) <+> 1 Available Ignition (ESU, Laser, Light Source) <+> 1 Fire Risk Assessment Score <+> 1 Fire Risk Assessment Complete <+> 1 Standard Fire Safety Precautions Followed [facility] Intra General Case Theatrical Variety Agent 1 Case Information OR OR 04 [facility] Case Level 1 Room Verified Yes Wound Class I - Clean Specialty SN Orthopedic ASA Class 3 Diagnosis Preop Diagnosis T84.54XA Postop Diagnosis SEE DOCTOR'S POST OP NOTES Last Modified By: Ashanti Bolaños RN 08/17/19 14:16:30 [facility] IntraOp General Case Data Audit 08/17/19 14:16:30 Paramedic Rn: MADISON Modifier: [email or web address] <+> 1 Room Verified 08/17/19 14:16:05 Paramedic Rn: MADISON Modifier: [email or web address] <+> 1 Preop Diagnosis <+> 1 Postop Diagnosis [facility] IntraOp Implant Log Entry 1 Entry 2 Entry 3 Type Implant (Synthetic) Implant (Synthetic) Implant (Synthetic) Implant Log Implant Type Other Bone Cement Hardware Tissue Implant Type Implant PUTY OSTEOBST BN VD CEMENT BONE SMPLX HV FEM DIST AUG SZ 6 Identification FILL [id number] Description Implant Quantity 1 3 1 Implant Site LEFT KNEE LEFT KNEE LEFT KNEE Implant Identification Model Number Implant [id number] Identification Serial Number Implant [id number] Identification Lot Number Implant [employer] Russell:Breana Russell:Breana Identification Orthopaedics Orthopaedics Pump Stitcher Name: Implant [id number] Identification Catalog Number Implant Size Implant Has an Yes Yes Yes Expiration Date Implant Expiration 12/31/21 09/30/20 07/22/23 Date Wasted Radioactive Material Time Implanted Tissue Implant Continue for Tissue Implant Documentation Tissue Identification Number Graft Prep Per Pump Stitcher Instructions: Tissue Preparation Method: Reconstitution Solution: Reconstitution Solution Lot Number Reconstitution Solution Expiration Date: Thawing Solution Thawing Solution Lot Number Thawing Solution Expiration Date Preparation Materials, Other Preparation Materials, Other Lot Number Preparation Materials, Other Expiration Date Tissue Prepared/Processed By Pump Stitcher Paperwork Completed Implant Type Comment Last Modified By: Ashanti Bolaños RN Maynard, Leanne, RN Maynard, Leanne, RN 08/17/19 14:29:54 08/17/19 16:03:49 08/17/19 16:09:54 Entry 4 Entry 5 Entry 6 Type Implant (Synthetic) Implant (Synthetic) Implant (Synthetic) Implant Log Implant Type Hardware Hardware Hardware Tissue Implant Type Implant STEM FLUTED TRIATH FEM POST AUG TRI SZ 6 COMP FEM TRI TS SZ 6 Identification [id number] Description Implant Quantity 1 1 1 Implant Site LEFT KNEE LEFT KNEE LEFT KNEE Implant Identification Model Number Implant Identification Serial Number Implant [id number] Identification Lot Number Implant Russell:Breana Breana:Breana Breana:Russell Identification Orthopaedics Orthopaedics Orthopaedics Pump Stitcher Name: Implant [id number] Identification Catalog Number Implant Size Implant Has an Yes Yes Yes Expiration Date Implant Expiration 06/16/23 09/12/23 08/04/23 Date Wasted Radioactive Material Time Implanted Tissue Implant Continue for Tissue Implant Documentation Tissue Identification Number Graft Prep Per Pump Stitcher Instructions: Tissue Preparation Method: Reconstitution Solution: Reconstitution Solution Lot Number Reconstitution Solution Expiration Date: Thawing Solution Thawing Solution Lot Number Thawing Solution Expiration Date Preparation Materials, Other Preparation Materials, Other Lot Number Preparation Materials, Other Expiration Date Tissue Prepared/Processed By Pump Stitcher Paperwork Completed Implant Type Comment Last Modified By: Ashanti Bolaños RN Maynard, Leanne, RN Maynard, Leanne, RN 08/17/19 15:59:02 08/17/19 16:03:49 08/17/19 16:03:49 Entry 7 Entry 8 Entry 9 Type Implant (Synthetic) Implant (Synthetic) Implant (Synthetic) Implant Log Implant Type Hardware Hardware Hardware Tissue Implant Type Implant STEM FLUTED 16MM 100MM BASEPLT TRIATHLON TS EXT STEM [id number] Identification [id number] Description Implant Quantity 1 1 1 Implant Site LEFT KNEE LEFT KNEE LEFT KNEE Implant Identification Model Number Implant Identification Serial Number Implant [id number] Identification Lot Number Implant Breana:Russell Russell:Russell Russell:Breana Identification Orthopaedics Orthopaedics Orthopaedics Pump Stitcher Name: Implant [id number] Identification Catalog Number Implant Size Implant Has an Yes Yes Yes Expiration Date Implant Expiration 08/11/23 04/09/24 05/10/24 Date Wasted Radioactive Material Time Implanted Tissue Implant Continue for Tissue Implant Documentation Tissue Identification Number Graft Prep Per Pump Stitcher Instructions: Tissue Preparation Method: Reconstitution Solution: Reconstitution Solution Lot Number Reconstitution Solution Expiration Date: Thawing Solution Thawing Solution Lot Number Thawing Solution Expiration Date Preparation Materials, Other Preparation Materials, Other Lot Number Preparation Materials, Other Expiration Date Tissue Prepared/Processed By Pump Stitcher Paperwork Completed Implant Type Comment Last Modified By: Ashanti Bolaños RN Maynard, Leanne, RN Maynard, Leanne, RN 08/17/19 16:03:49 08/17/19 16:03:49 08/17/19 16:03:49 Entry 10 Entry 11 Type Implant (Synthetic) Implant (Synthetic) Implant Log Implant Type Hardware Hardware Tissue Implant Type Implant TIB SYM CON [id number] TIB PS X3 ??#5 Identification [id number] Description Implant Quantity 1 1 Implant Site LEFT KNEE LEFT KNEE Implant Identification Model Number Implant Identification Serial Number Implant [id number] Identification Lot Number Implant Breana:Breana Breana:Breana Identification Orthopaedics Orthopaedics Pump Stitcher Name: Implant [id number] Identification Catalog Number Implant Size Implant Has an Yes Yes Expiration Date Implant Expiration 06/06/24 10/04/22 Date Wasted Radioactive Material Time Implanted Tissue Implant Continue for Tissue Implant Documentation Tissue Identification Number Graft Prep Per Pump Stitcher Instructions: Tissue Preparation Method: Reconstitution Solution: Reconstitution Solution Lot Number Reconstitution Solution Expiration Date: Thawing Solution Thawing Solution Lot Number Thawing Solution Expiration Date Preparation Materials, Other Preparation Materials, Other Lot Number Preparation Materials, Other Expiration Date Tissue Prepared/Processed By Pump Stitcher Paperwork Completed Implant Type Comment Last Modified By: Ashanti Bolaños RN Maynard, Leanne, RN 08/17/19 16:03:49 08/17/19 16:03:49 [facility] IntraOp Implant Log Audit 08/17/19 16:09:54 Paramedic Rn: MADISON Modifier: MADISON <+> 11 Implant Identification Description <+> 11 Implant Identification Lot Number <+> 11 Implant Identification Pump Stitcher Name: <+> 11 Implant Expiration Date <+> 11 Implant Site <+> 11 Implant Quantity <+> 11 Implant Identification Catalog Number <+> 11 Implant Type <+> 11 Implant Has an Expiration Date <+> 11 Type 08/17/19 16:03:49 Paramedic Rn: MADISON Modifier: MADISON <+> 3 Implant Identification Description <+> 3 Implant Identification Lot Number <+> 3 Implant Identification Pump Stitcher Name: <+> 3 Implant Expiration Date <+> 3 Implant Site <+> 3 Implant Quantity <+> 3 Implant Identification Catalog Number <+> 3 Implant Type <+> 3 Implant Has an Expiration Date <+> 3 Type <+> 4 Implant Identification Description <+> 4 Implant Identification Lot Number <+> 4 Implant Identification Pump Stitcher Name: <+> 4 Implant Expiration Date <+> 4 Implant Site <+> 4 Implant Quantity <+> 4 Implant Identification Catalog Number <+> 4 Implant Type <+> 4 Implant Has an Expiration Date <+> 4 Type <+> 5 Implant Identification Description <+> 5 Implant Identification Lot Number <+> 5 Implant Identification Pump Stitcher Name: <+> 5 Implant Expiration Date <+> 5 Implant Site <+> 5 Implant Quantity <+> 5 Implant Identification Catalog Number <+> 5 Implant Type <+> 5 Implant Has an Expiration Date <+> 5 Type <+> 6 Implant Identification Description <+> 6 Implant Identification Lot Number <+> 6 Implant Identification Pump Stitcher Name: <+> 6 Implant Expiration Date <+> 6 Implant Site <+> 6 Implant Quantity <+> 6 Implant Identification Catalog Number <+> 6 Implant Type <+> 6 Implant Has an Expiration Date <+> 6 Type <+> 7 Implant Identification Description <+> 7 Implant Identification Lot Number <+> 7 Implant Identification Pump Stitcher Name: <+> 7 Implant Expiration Date <+> 7 Implant Site <+> 7 Implant Quantity <+> 7 Implant Identification Catalog Number <+> 7 Implant Type <+> 7 Implant Has an Expiration Date <+> 7 Type <+> 8 Implant Identification Description <+> 8 Implant Identification Lot Number <+> 8 Implant Identification Pump Stitcher Name: <+> 8 Implant Expiration Date <+> 8 Implant Site <+> 8 Implant Quantity <+> 8 Implant Identification Catalog Number <+> 8 Implant Type <+> 8 Implant Has an Expiration Date <+> 8 Type <+> 9 Implant Identification Description <+> 9 Implant Identification Lot Number <+> 9 Implant Identification Pump Stitcher Name: <+> 9 Implant Expiration Date <+> 9 Implant Site <+> 9 Implant Quantity <+> 9 Implant Identification Catalog Number <+> 9 Implant Type <+> 9 Implant Has an Expiration Date <+> 9 Type <+> 10 Implant Identification Description <+> 10 Implant Identification Lot Number <+> 10 Implant Identification Pump Stitcher Name: <+> 10 Implant Expiration Date <+> 10 Implant Site <+> 10 Implant Quantity <+> 10 Implant Identification Catalog Number <+> 10 Implant Type <+> 10 Implant Has an Expiration Date <+> 10 Type 08/17/19 15:59:02 Paramedic Rn: MADISON Modifier: MADISON 2 <*> Implant Identification Description CEMENT BONE SMPLX [id number] <*> Implant Quantity 2 [facility] IntraOp Intraoperative Assessment Entry 1 Handoff Method Bedside/Face to face, Online nursing summary Valid History / Yes Physical in Chart Preoperative Yes Checklist Reviewed/Evaluated Allergies Reviewed Yes Patient is Latex No Sensitive Isolation Not applicable Precautions Noted Level of WDL Consciousness (WDL = Alert, Oriented to Person, Place, and Time) Skin Assessment Yes Verified Present Upon IVs Arrival to OR Last Modified By: Ashanti Bolaños RN 08/17/19 13:51:19 [facility] IntraOp Intraoperative Equipment Entry 1 Type Equipment Equipment Equipment Dorinda Suction System ID Number [id number] Setting HIGH Intraop Monitoring Electrocardiogram Five lead placement (ECG) Electrode Placement Blood Pressure Non-Invasive BP Device Source Blood Pressure Arm, right upper Location Pulse Oximeter Hand, left Probe Site Antiembolic Devices Antiembolic Devices Sequential compression device, knee high Antiembolic Device Right Location Antiembolic Device [id number] ID Number Antiembolic Device HIGH Setting Scopes Photo/Video Documentation Last Modified By: Ashanti Bolaños RN 08/17/19 13:51:51 [facility] IntraOp Medication Admin Entry 1 Entry 2 Entry 3 Medication/Irrigant NEEL IRR NACL 0.9PCT NEEL IRR NACL 0.9PCT Bacitracin 50,00units 2000ML [id number] powder vial Combo Med List 1 - Combo Med 2 - Combo Med 1 - Combo Med Time Administered Route of IRRIGATION IRRIGATION ADDED TO IRRIGATION Administration Dose Dose Unit of Measure Volume Administered By LION DAVIS KARTHIKEYAN, THARUN, KARTHIKEYAN, THARUN, MD-ORT MARYORT -ORT Procedure Irrigation Irrigant Volume In Irrigant Volume Out Last Modified By: Ashanti Bolaños RN Maynard, Leanne, RN Maynard, Leanne, RN 08/17/19 15:12:32 08/17/19 15:12:32 08/17/19 15:12:32 Entry 4 Medication/Irrigant Bacitracin 50,00units powder vial Combo Med List 2 - Combo Med Time Administered Route of ADDED TO IRRIGATION Administration Dose Dose Unit of Measure Volume Administered By LION DAVIS MD-ORElizabeth Procedure Irrigation Irrigant Volume In Irrigant Volume Out Last Modified By: Ashanti Bolaños RN 08/17/19 15:12:32 [facility] IntraOp Patient Positioning Entry 1 Procedure Knee Total Joint Revision(Left) Body Position Supine Left Arm Position Secured on padded arm board Right Arm Position Secured on padded arm board Left Leg Position Held on field Right Leg Position Uncrossed, parallel Feet Uncrossed Yes Pressure Points Yes Checked Positioning Devices Arm Board, Arm Board, Head Rest, Pad, Arm, Pad, Arm, Pad, Elbow, Pad, Elbow, Safety Strap, Arm(s), Safety Strap, Chest, Foot Rest Positioned By LION DAVIS MD-NELDA, LISBETH BRYANT CRNA-ANS, Ashanti Bolaños RN Position Verified Positioning Yes Verified by Anesthesia Positioning Yes Verified by Surgeon Last Modified By: Ashanti Bolaños RN 08/17/19 14:15:40 [facility] IntraOp Sign In Entry 1 Patient, Site, Yes Procedure Identified Surgical Consent Yes Confirmed Relevant Surgical Yes Documents Available Surgical Site Yes Marked by person performing procedure Anesthesia Machine Yes Check Completed Medication Checks Yes Completed Allergies Yes Airway Difficult No Airway/Aspiration Risk Difficult No Airway/Aspiration Intervention Equipment Available Blood Loss Risk No Blood Loss No Intervention Equipment Prepared and Ready Blood Identifiers Not applicable Verified Per Policy Hypothermia Risk Yes Warming Measures Yes Taken Last Modified By: Ashanti Bolaños RN 08/17/19 13:52:08 [facility] IntraOp Sign Out Entry 1 RN Confirmation Surgical Yes Procedure(s) Identified Instrument, Sponge Yes and Sharps Counts Correct/Documented Equipment Problems N/A Documented Specimen Labeled Yes Correctly Urinary Catheter N/A Documented in IView Fuller Patient Yes Recovery Concerns Reviewed with Anesthesia Provider, Surgeon and RN Fuller Patient Yes Management Concerns Reviewed with Anesthesia Provider, Surgeon and RN Safety Checklist Yes Elements Complete? RN Sign Out Faina Fernandes Rn Signature RN Sign Out 08/17/19 17:08:00 Signature Date/Time Plan of Care Outcome - Fire Risk OUTCOME STATEMENT: Goal met Patient is free from injury related to surgical fire Plan of Care Outcome - Pt Positioning OUTCOME STATEMENT: Goal met Absence of signs and symptoms of positioning injury. Plan of Care Outcome - Skin Prep OUTCOME STATEMENT: Goal met Intraoperative care is consistent with measures to prevent infection Plan of Care Outcome - Xray/Images OUTCOME STATEMENT: Goal met Absence of observable signs or symptoms of radiation injury Plan of Care Outcome - Counts OUTCOME STATEMENT: Goal met Absence of signs and symptoms of injury related to extraneous objects Last Modified By: Faina Fernandes Rn 08/17/19 17:09:13 [facility] IntraOp Skin Prep Entry 1 Procedure Knee Total Joint Revision(Left) Prescribed N/A Pre-Surgical Prep Completed Prep Area LEFT CALF TO TOES CIRCUMFRENTIALLY Intraop Prep Integumentary WDL Assessment WDL Prep Agents Chlorhexidine gluconate/alcohol, Chloraprep, DuraPrep Prep by Ashanti Bolaños RN Hair Removal Methods No hair removal performed Last Modified By: Ashanti Bolaños RN 08/17/19 14:16:55 [facility] IntraOp Surgical Procedures Entry 1 Procedure Knee Total Joint Revision Modifiers Left Additional (LT TOTAL KNEE Procedure ARTHROPLASTY REVISION Description REPLANT) Primary Procedure Yes Primary Surgeon LION DAVIS MD-ORT Start 08/17/19 14:22:00 Stop 08/17/19 16:49:00 Anesthesia Type General Specialty SN Orthopedic Wound Class I - Clean Last Modified By: Faina Fernandes Rn 08/17/19 17:08:24 [facility] IntraOp Surgical Procedures Audit 08/17/19 17:08:24 Paramedic Rn: MADISON Modifier: [email or web address] <+> 1 Stop 08/17/19 15:59:15 Paramedic Rn: MADISON Modifier: MAYNARL <+> 1 Start [facility] IntraOp Temp Regulation Devices Entry 1 Temp Regulation Temperature Forced Air Warming Regulation Device device, Warm blankets Temperature 33482 Regulation Device Serial/Unit Number Temperature Upper body Regulation Site Temperature Device 43 DEGREES CELCIUS Setting Temperature Ashanti Bolaños RN Regulation Device Applied by Last Modified By: Ashanti Bolaños RN 08/17/19 14:16:26 [facility] IntraOP Time Out Entry 1 Procedure to be Knee Total Joint Performed Revision(Left) Time Out Time Out Pause Time 08/17/19 14:22:00 All activity Yes suspended (unless life threatening emergency) Team Verbally Correct patient Confirms Information identity, Correct side and site are marked, Consent form is present and accurate, Agreement on the procedure to be done, Correct patient position, Relevant images/results properly labeled/appropriately displayed, Confirm antibiotics have been administered, Confirm the skin prep has dried, Confirm prosthesis/implant/devic e is present, Performed in location of procedure after prepped/draped, Performed before each procedure if multiple procedures Antibiotic Yes Prophylaxis Administered Or In Progress Within the Last 60 Minutes Beta Som Yes Administered Venous Yes Thromboembolism Prophylaxis Required Anticipated Critical Events Surgeon None expected Anesthesia Provider None expected Nursing Assures Sterility of instruments, Equipment concerns or issues, Implant Availability Essential Imaging Yes Labeled and Displayed Last Modified By: Ashanti Bolaños RN 08/17/19 14:22:41 [facility] IntraOp Tourniquet Entry 1 Type Pneumatic Serial/Unit Number [id number] Setting 300 mmHg Pheumatic Yes Tourniquet Checked Per Protocol Placement Calf, left Skin Protection - Yes Padded Under Cuff Applied By LION DAVIS MD-ORT Removed By NINOSKA LUOIE PA-ORT Times Start Time 08/17/19 14:22:00 Stop Time 08/17/19 16:31:00 Last Modified By: Faina Fernandes Rn 08/17/19 16:49:15 [facility] IntraOp Tourniquet Audit 08/17/19 16:49:15 Paramedic Rn: MADISON Modifier: JACK <+> 1 Stop Time Case Comments <None> Finalized By: MALVIN KENT Document Signatures Signed By: Faina Fernandes Rn 08/17/19 17:09 MALVIN KENT 08/18/19 11:58 Unfinalized History Date/Time Username Reason for Unfinalizing Freetext Reason for Unfinalizing 08/18/19 11:50 [email or web address] Correct Billing Electronically signed by [facility] Conversion Press Brake Operator Cerner at 11/18/2022 9:34 AM CDT documented in this encounter Plan of Treatment Not on file documented as of this encounter Visit Diagnoses Not on filedocumented in this encounter Care Teams Contract Mail Carrier Relationship Specialty Start Date End Date Alfredo Aguiar MD [address] [place] [address] PCP - General Adolescent Medicine 10/16/22 10/19/22 Alfredo Aguiar MD [address] [place] [address] PCP - General Adolescent Medicine 10/20/22 documented as of this encounter
--- OUTSIDE RECORDS SUMMARY | 2025-01-23 15:55 | XMS_ITS | Encounter Summary ---
Author Organization [employer] In [employer]atives Address [address] [place] [address] Care Team Providers Care Necktie Turner Name Role Phone Alfredo Aguiar MD Primary Care Provider + [phone] Alfredo Aguiar MD Primary Care Provider + [phone] Encounter Details Date Type Department Care Team (Late st Contact Info) Description 08/17/2019 Transcribed Document [facility] Radiology [address] [place] [address] Massimo Butterfield MD [address] [place] [address] Social History Tobacco Use Types Packs/Day Years Used Date Smoking Tobacco: Never Assessed Sex and Gender Information Value Date Recorded Sex Assigned at Not on file Legal Sex Male 5:45 PM CDT Gender Identity Not on file Sexual Orientation Not on file documented as of this encounter Miscellaneous Notes * Cerner Conversion Note - Massimo Butterfield MD - 08/17/2019 10:00 AM EST Patient: LORA JAIN JR Age: 78 years Sex: Male : 1940 Associated Diagnoses: None Author: ISSAC MCKOY PA 08/17/2019 cc: medical management s/p left total knee revision arthroplasty per Dr. Allison HPI: Patient is an 78 yo male admitted to [facility] per Dr. 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 Elderly appearing. Good historian. HEENT: sclera white without conjunctival injection. No erythema, exudate or ulceration. No thrush present. Neck: Supple without nuchal rigidity Lymphatic: No palpable cervical or axillary LAD Lungs: Clear to auscultation bilaterally without wheezes, rales, or rhonchi. Normal respiratory effort without O2. Cardiovascular: normal S1/S2; RRR, no m/r/g. Abdomen: soft, non-tender, non-distended, positive bowel sounds throughout. : Negative for Cunha catheter Lower extremity: No cyanosis, clubbing or edema Neuro: Alert and oriented x3. No focal deficits. Good hearing. Motor 5/5 upper and lower extremity strength; FROM MSK: No joint effusions and without limitations to mobility Skin: Without rash; c/d/i. L knee surgical incision healed. Psych: Appropriate in mood and affect and cooperative with exam PICC line: removed from RU Data: Labs (Last four charted values) WBC 6.4 [...] placement of abx spacer with prosthesis removal -Awaiting left total knee revision arthroplasty per Dr. Allison HTN GERD DM Plan: Consult ID: Dr. Peng for evaluation postoperatively AM labs Cultures collected today- continue to monitor HOLD Metformin and 70/30 insulin Start SSI and monitor PO intake Monitor HTN; add PRN's, hold parameters bowel regimen incentive spirometer PT/OT DVT prophylaxis noted Pain management deferred to surgeon will monitor hb/hct daily for signs of ongoing acute blood loss will monitor bun/cr daily for signs of dehydration, prerenal azotemia will monitor for signs/symptoms of post-op wound infection or hospital acquired infectious process accuchecks [facility] for blood glucose monitoring; will hold oral diabetic agents while hospitalized. will use short acting insulin for correction. may add long-acting insulin for persistent hyperglycemia resume outpatient medication regimen for comorbidities Scribed by Renetta Solomon documented in this encounter Plan of Treatment Not on file documented as of this encounter Visit Diagnoses Not on filedocumented in this encounter Care Teams Necktie Turner Relationship Specialty Start Date End Date Alfredo Aguiar MD [address] [place] [address] PCP - General Adolescent Medicine 10/16/22 10/19/22 Alfredo Aguiar MD [address] [place] [address] PCP - General Adolescent Medicine 10/20/22 documented as of this encounter
--- OUTSIDE RECORDS SUMMARY | 2025-01-23 15:55 | XMS_ITS | Encounter Summary ---
Author Organization [employer] In [employer]atives Address [address] [place] [address] Care Team Providers Care Evidence Custodian Name Role Phone Alfredo Aguiar MD Primary Care Provider + [phone] Alfredo Aguiar MD Primary Care Provider + [phone] Encounter Details Date Type Department Care Team (Late st Contact Info) Description 05/20/2019 Transcribed Document [facility] [place] Family Medicine [facility] [place] [address] ProviderEryn MD [address] [place] [id number] Social History Tobacco Use Types Packs/Day Years Used Date Smoking Tobacco: Never Assessed Sex and Gender Information Value Date Recorded Sex Assigned at Not on file Legal Sex Male 5:45 PM CDT Gender Identity Not on file Sexual Orientation Not on file documented as of this encounter Miscellaneous Notes * Cerner Conversion Note - Eryn Arcos MD - 05/20/2019 11:23 AM CDT Procedural Documentation Entered On: 05/20/2019 11:26 EDT Performed On: 05/20/2019 11:23 EDT by Dalia Bernstein RN Procedure Documentation Procedure to be Performed : left scaitic/adductor block Time Out Pause Time : 05/20/2019 11:20 EDT All Activity Suspended : Yes Team Verbally Confirms Information : Correct patient identity, Correct side and site are marked, Consent form is present and accurate, Agreement on the procedure to be done, Correct patient position, Confirm the skin prep has dried, Performed in location of procedure after prepped/draped Procedure Performed : left scaitic/adductor block Proper Use of Sterile Apparel per Policy : Yes Procedure Case Attendee : VARGHESE NATHAN MD-ANS Procedure Case Attendee Role : Anesthesiologist Procedure Case Attendee Role 2 : branch or department chief librarian Case Attendee 2 : EVAN Drake branch or department chief librarian Case Attendee Role 3 : branch or department chief librarian Case Attendee 3 : Dalia Bernstein, RN Dalia Bernstein RN - 05/20/2019 11:23 EDT Postprocedure Documentation Current Time : 11:28 EST Dalia Bernstein RN - 05/20/2019 11:28 EDT Josselyn Level I Post Anesthesia Assessment Josselyn I Activity Status : Moves 4 extremities voluntarily or on command Josselyn l Respiratory Component : Able to deep breathe and cough freely Josselyn I Circulation Component : BP 20% of preanesthetic level Josselyn I Consciousness : Arouses on calling Josselyn l Oxygen Saturation : Needs oxygen to maintain > 92% Josselyn l Score : 8 Dalia Bernstein RN - 05/20/2019 11:28 EDT Vital Measurements Systolic Blood Pressure : 130 mmHg Diastolic Blood Pressure : 60 mmHg Dalia Bernstein RN - 05/20/2019 11:31 EDT Pulse Method : Pulse Oximetry Peripheral Pulse Rate : 76 bpm Pulse Rhythm : Regular Respiratory Rate : 16 Breaths/Min Blood Pressure Location : Arm, right upper Blood Pressure Source : Non-Invasive BP Device Blood Pressure Position : Supine Vital Measurements Comment : [id number] Oxygen Saturation : 98 % Oxygen Therapy Mode : Nasal cannula Oxygen Flow Rate : 2 Liter/Min Dalia Bernstein RN - 05/20/2019 11:28 EDT Electronically signed by [facility] Conversion Store Receiving Specialist Cerner at 11/18/2022 9:25 AM CDT documented in this encounter Plan of Treatment Not on file documented as of this encounter Visit Diagnoses Not on filedocumented in this encounter Care Teams Evidence Custodian Relationship Specialty Start Date End Date Alfredo Aguiar MD [address] [place] [address] PCP - General Adolescent Medicine 10/16/22 10/19/22 Alfredo Aguiar MD [address] [place] [address] PCP - General Adolescent Medicine 10/20/22 documented as of this encounter
--- OUTSIDE RECORDS SUMMARY | 2025-01-23 15:55 | XMS_ITS | Encounter Summary ---
Author Organization [facility] [employer] In [employer] Address [address] [place] [address] Care Team Providers Care Smoking Pipe Driller And Threader Name Role Phone Alfredo Aguiar MD Primary Care Provider + [phone] Alfredo Aguiar MD Primary Care Provider + [phone] Encounter Details Date Type Department Care Team (Late st Contact Info) Description 08/17/2019 Transcribed Document [facility] Family Medicine [place] [address] ProviderEryn MD [address] [place] [id number] Social History Tobacco Use Types Packs/Day Years Used Date Smoking Tobacco: Never Assessed Sex and Gender Information Value Date Recorded Sex Assigned at Not on file Legal Sex Male 5:45 PM CDT Gender Identity Not on file Sexual Orientation Not on file documented as of this encounter Miscellaneous Notes * Cerner Conversion Note - Eryn Arcos MD - 08/17/2019 2:22 PM EXTENDED INSURANCE CLERK [facility] Main OR PACU Summary Primary Physician: LION DAVIS MD-ORT Finalized Date/Time: 08/17/19 19:17:06 Pt. Name: LORA JAIN JR/Sex: 1940 Male Med Rec #: [id number] Physician: LION DAVIS MD-ORT Financial #: [id number] Pt. Type: I Room/Bed: 4/ Admit/Disch: 08/17/19 07:12:00 - Institution: [facility] Main OR PACU I Case Times Entry 1 In PACU I 08/17/19 17:07:00 Ready for PACU 08/17/19 18:20:00 Discharge Discharge from PACU 08/17/19 18:20:00 I Last Modified By: THI STEPHENSON RN 08/17/19 19:16:56 [facility] Main OR PACU I Case Times Audit 08/17/19 19:16:56 Fire Prevention Captain: SACHINLILLIAM Modifier: SACHINLILLIAM 1 <*> In PACU I 08/17/19 19:16:00 1 <+> Ready for PACU Discharge 1 <+> Discharge from PACU I Finalized By: THI STEPHENSON, RN Document Signatures Signed By: THI STEPHENSON RN 08/17/19 19:17 Electronically signed by [facility] Conversion Nurse Reviewer Cerner at 11/18/2022 9:33 AM CDT documented in this encounter Plan of Treatment Not on file documented as of this encounter Visit Diagnoses Not on filedocumented in this encounter Care Teams Smoking Pipe Driller And Threader Relationship Specialty Start Date End Date Alfredo Aguiar MD [address] [place] [address] PCP - General Adolescent Medicine 10/16/22 10/19/22 Alfredo Aguiar MD [address] [place] [address] PCP - General Adolescent Medicine 10/20/22 documented as of this encounter
--- OUTSIDE RECORDS SUMMARY | 2025-01-23 15:55 | XMS_ITS | Encounter Summary ---
Author Organization [employer] Address [address] [place] [address] Care Team Providers Care Delivery Truck Driver Name Role Phone Alfredo Aguiar MD Primary Care Provider + [phone] Alfredo Aguiar MD Primary Care Provider + [phone] Encounter Details Date Type Department Care Team (Late st Contact Info) Description 05/25/2019 Transcribed Document [facility] [place] Family Medicine [facility] [place] [address] ProviderEryn MD [address] [place] [id number] Social History Tobacco Use Types Packs/Day Years Used Date Smoking Tobacco: Never Assessed Sex and Gender Information Value Date Recorded Sex Assigned at Not on file Legal Sex Male 5:45 PM CDT Gender Identity Not on file Sexual Orientation Not on file documented as of this encounter Miscellaneous Notes * Cerner Conversion Note - Eryn Arcos MD - 05/25/2019 4:04 PM CDT Post Visit Phone Call Entered On: 05/25/2019 16:05 EDT Performed On: 05/25/2019 16:04 EDT by Renae Roque Rn Post Visit Phone Call Post Visit Phone Call History : Other: d/c to rehab facility Renae Roque Rn - 05/25/2019 16:04 EDT documented in this encounter Plan of Treatment Not on file documented as of this encounter Visit Diagnoses Not on filedocumented in this encounter Care Teams Delivery Truck Driver Relationship Specialty Start Date End Date Alfredo Aguiar MD [address] [place] [address] PCP - General Adolescent Medicine 10/16/22 10/19/22 Alfredo Aguiar MD [address] [place] [address] PCP - General Adolescent Medicine 10/20/22 documented as of this encounter
--- OUTSIDE RECORDS SUMMARY | 2025-01-23 15:55 | XMS_ITS | Encounter Summary ---
Author Organization [facility] [employer] In iatives Address [address] [place] [address] Care Team Providers Care Recreation Establishment Manager Name Role Phone Alfredo Aguiar MD Primary Care Provider + [phone] Alfredo Aguiar MD Primary Care Provider + [phone] Encounter Details Date Type Department Care Team (Late st Contact Info) Description 05/20/2019 Transcribed Document [facility] [place] [address] ProviderEryn MD [address] [place] [address] [id number] Social History Tobacco Use Types Packs/Day Years Used Date Smoking Tobacco: Never Assessed Sex and Gender Information Value Date Recorded Sex Assigned at Not on file Legal Sex Male 5:45 PM CDT Gender Identity Not on file Sexual Orientation Not on file documented as of this encounter Miscellaneous Notes * Cerner Conversion Note - Eryn Arcos MD - 05/20/2019 2:15 PM CDT [facility] Main OR IntraOp Summary Primary Physician: LION DAVIS MD-ORT Finalized Date/Time: 05/22/19 16:41:27 Pt. Name: LORA JAIN JR/Sex: 1940 Male Med Rec #: [id number] Physician: LION DAVIS MD-ORT Financial #: [id number] Pt. Type: I Room/Bed: [facility]/ Admit/Disch: 05/20/19 06:54:00 - Institution: [facility] IntraOp Case Attendance Entry 1 Entry 2 Entry 3 Case Attendee LION DAVIS TAYLOR, MELISSA A, RENETTA MAYS RN MD-ORT Role Performed Surgeon/Proceduralist, Core Drill Operator Helper, First Core Drill Operator Helper, Second First Time In 05/20/19 13:44:00 05/20/19 13:44:00 05/20/19 13:44:00 Time Out 05/20/19 16:54:00 05/20/19 16:54:00 05/20/19 14:18:00 Procedure Knee Total Joint Knee Total Joint Knee Total Joint Revision(Left) Revision(Left) Revision(Left) Other Attendee lunch relief Superficial Wound Closed By: Last Modified By: PRESTON ALANIS RN TAYLOR, MELISSA A, RN TAYLOR, MELISSA A, RN 05/20/19 16:51:00 05/20/19 16:51:00 05/20/19 16:51:00 Entry 4 Entry 5 Entry 6 Case Attendee DIAN HOFFMANN, SUZIE Oakes APRN, [place], DALE ALAN, PRINT BUYER-ANS -ANS Role Performed Scrub, First PRINT BUYER/Nurse Math Professor Anesthesiologist of Record Time In 05/20/19 13:44:00 05/20/19 13:44:00 05/20/19 13:44:00 Time Out 05/20/19 15:43:00 05/20/19 15:28:00 05/20/19 15:14:00 Procedure Knee Total Joint Knee Total Joint Knee Total Joint Revision(Left) Revision(Left) Revision(Left) Other Attendee Superficial Wound Closed By: Last Modified By: PRESTON ALANIS RN TAYLOR, MELISSA A, RN TAYLOR, MELISSA A, RN 05/20/19 16:51:00 05/20/19 16:51:41 05/20/19 16:51:00 Entry 7 Entry 8 Entry 9 Case Attendee OTHER, ATTENDEE OTHER, ATTENDEE ELEUTERIO COLUNGA CSA Role Performed Vendor Vendor Mill Roll Operator, First Time In 05/20/19 13:44:00 05/20/19 13:44:00 05/20/19 13:44:00 Time Out 05/20/19 16:54:00 05/20/19 16:54:00 05/20/19 16:54:00 Procedure Knee Total Joint Knee Total Joint Knee Total Joint Revision(Left) Revision(Left) Revision(Left) Other Attendee richard baugh, MAK [place], Superficial Wound Closed By: Last Modified By: PRESTON ALANIS, RN PRESTON ALANIS, RN PRESTON ALANIS, ELICEO 05/20/19 16:51:00 05/20/19 16:51:00 05/20/19 16:51:00 Entry 10 Entry 11 Entry 12 Case Attendee Baljinder Aj, JUVENAL CHONG MD-Leona Dennis [employer] Pref Card Builder Role Performed PRINT BUYER/Nurse Math Professor Anesthesiologist of Scrub, First Record Time In 05/20/19 13:44:00 05/20/19 15:14:00 05/20/19 13:44:00 Time Out 05/20/19 14:16:00 05/20/19 16:54:00 05/20/19 15:41:00 Procedure Knee Total Joint Knee Total Joint Knee Total Joint Revision(Left) Revision(Left) Revision(Left) Other Attendee LUNCH RELIEF RELIEF Superficial Wound Closed By: Last Modified By: PRESTON ALANIS RN TAYLOR, MELISSA A, RN PRESTON ALANIS, ELICEO 05/20/19 16:51:00 05/20/19 16:51:00 05/20/19 16:51:00 Entry 13 Case Attendee YEIMI PARRA CRNA Role Performed PRINT BUYER/Nurse Math Professor Time In 05/20/19 15:28:00 Time Out 05/20/19 16:54:00 Procedure Knee Total Joint Revision(Left) Other Attendee RELIEF Superficial Wound Closed By: Last Modified By: PRESTON ALANIS RN 05/20/19 16:51:00 [facility] IntraOp Case Attendance Audit 05/20/19 16:51:41 Business Administration Professor: CHANTELL Modifier: CHANTELL 13 <+> Role Performed 13 <*> Procedure Knee Total Joint Revision(Left) 05/20/19 16:51:00 Business Administration Professor: CHANTELL Modifier: ANNABELLEME 1 <+> Time Out 1 <*> Procedure Knee Total Joint Revision(Left) 2 <+> Time Out 2 <*> Procedure Knee Total Joint Revision(Left) 3 <*> Procedure Knee Total Joint Revision(Left) 4 <*> Procedure Knee Total Joint Revision(Left) 5 <*> Procedure Knee Total Joint Revision(Left) 6 <*> Procedure Knee Total Joint Revision(Left) 7 <+> Time Out 7 <*> Procedure Knee Total Joint Revision(Left) 8 <+> Time Out 8 <*> Procedure Knee Total Joint Revision(Left) 9 <+> Time Out 9 <*> Procedure Knee Total Joint Revision(Left) 10 <*> Procedure Knee Total Joint Revision(Left) 11 <+> Time Out 11 <*> Procedure Knee Total Joint Revision(Left) 12 <*> Procedure Knee Total Joint Revision(Left) 13 <+> Time Out 13 <*> Procedure Knee Total Joint Revision(Left) 05/20/19 15:50:35 Business Administration Professor: ANNABELLEME Modifier: TAYLORME 1 <*> Procedure Knee Total Joint Revision(Left) 2 <*> Procedure Knee Total Joint Revision(Left) 3 <*> Procedure Knee Total Joint Revision(Left) 4 <+> Time Out 4 <*> Procedure Knee Total Joint Revision(Left) 5 <*> Procedure Knee Total Joint Revision(Left) 6 <*> Procedure Knee Total Joint Revision(Left) 7 <*> Procedure Knee Total Joint Revision(Left) 8 <*> Procedure Knee Total Joint Revision(Left) 9 <*> Procedure Knee Total Joint Revision(Left) 10 <*> Procedure Knee Total Joint Revision(Left) 11 <*> Procedure Knee Total Joint Revision(Left) 12 <+> Time In 12 <+> Time Out 12 <*> Procedure Knee Total Joint Revision(Left) <+> 13 Case Attendee <+> 13 Time In <+> 13 Procedure <+> 13 Other Attendee 05/20/19 15:42:18 Business Administration Professor: ANNABELLEME Modifier: TAYLORME <+> 12 Case Attendee <+> 12 Role Performed <+> 12 Procedure <+> 12 Other Attendee 05/20/19 15:29:20 Business Administration Professor: TAYLORME Modifier: TAYLORME 5 <+> Time Out 5 <*> Procedure Knee Total Joint Revision(Left) 6 <+> Time Out 6 <*> Procedure Knee Total Joint Revision(Left) <+> 11 Case Attendee <+> 11 Role Performed <+> 11 Time In <+> 11 Procedure 05/20/19 14:30:32 Business Administration Professor: TAYLORME Modifier: TAYLORME 3 <+> Time Out 3 <*> Procedure Knee Total Joint Revision(Left) 05/20/19 14:27:32 Business Administration Professor: CHANTELL Modifier: CHANTELL 1 <*> Case Attendee LION DAVIS MD-ORT 1 <*> Role Performed Surgeon/Proceduralist, First 1 <*> Time In 05/20/19 13:44:00 1 <*> Procedure Knee Total Joint Revision(Left) 2 <*> Case Attendee PRESTON ALANIS, RN 2 <*> Role Performed Core Drill Operator Helper, First 2 <*> Time In 05/20/19 13:44:00 2 <*> Procedure Knee Total Joint Revision(Left) 3 <*> Case Attendee RENETTA JOHN, RN 3 <*> Role Performed Core Drill Operator Helper, Second 3 <*> Time In 05/20/19 13:44:00 3 <*> Procedure Knee Total Joint Revision(Left) 3 <*> Other Attendee lunch relief 4 <*> Case Attendee DIAN HOFFMANN 4 <*> Role Performed Scrub, Second 4 <*> Time In 05/20/19 13:44:00 4 <*> Procedure Knee Total Joint Revision(Left) 4 <-> Other Attendee lunch relief Entry 5 was deleted. Higher numbered entries shifted one position to fill the gap. <-> 5 Case Attendee Leona Ott [employer] Pref Card Builder <-> 5 Role Performed Scrub, First <-> 5 Time In 05/20/19 13:44:00 <-> 5 Procedure Knee Total Joint Revision(Left) 6 <*> Case Attendee SUZIE DAY, VARNISH THINNER, PRINT BUYER-ANS 6 <*> Role Performed PRINT BUYER/Nurse Math Professor 6 <*> Time In 05/20/19 13:44:00 6 <*> Procedure Knee Total Joint Revision(Left) 7 <*> Case Attendee AVRGHESE NATHAN MD-ANS 7 <*> Role Performed Anesthesiologist of Record 7 <*> Time In 05/20/19 13:44:00 7 <*> Procedure Knee Total Joint Revision(Left) 7 <+> Other Attendee 8 <*> Case Attendee OTHER, ATTENDEE 8 <*> Role Performed Vendor 8 <*> Time In 05/20/19 13:44:00 8 <*> Procedure Knee Total Joint Revision(Left) 8 <*> Other Attendee richard baugh, rep 9 <*> Case Attendee OTHER, ATTENDEE 9 <*> Role Performed Vendor 9 <*> Time In 05/20/19 13:44:00 9 <*> Procedure Knee Total Joint Revision(Left) 9 <-> Other Attendee MAK SOUTH, REP 10 <*> Case Attendee ELEUTERIO COLUNGA, CSA 10 <*> Role Performed Mill Roll Operator, First 10 <*> Time In 05/20/19 13:44:00 10 <+> Time Out 10 <*> Procedure Knee Total Joint Revision(Left) 10 <+> Other Attendee 05/20/19 14:27:04 Business Administration Professor: CHANTELL Modifier: TAYLORME 1 <+> Time In 1 <*> Procedure Knee Total Joint Revision(Left) 2 <+> Time In 2 <*> Procedure Knee Total Joint Revision(Left) 3 <+> Time In 3 <*> Procedure Knee Total Joint Revision(Left) 4 <+> Time In 4 <*> Procedure Knee Total Joint Revision(Left) 5 <+> Time In 5 <*> Procedure Knee Total Joint Revision(Left) 6 <+> Time In 6 <*> Procedure Knee Total Joint Revision(Left) 7 <+> Time In 7 <*> Procedure Knee Total Joint Revision(Left) 8 <+> Time In 8 <*> Procedure Knee Total Joint Revision(Left) 9 <+> Time In 9 <*> Procedure Knee Total Joint Revision(Left) 10 <+> Time In 10 <*> Procedure Knee Total Joint Revision(Left) <+> 11 Case Attendee <+> 11 Role Performed <+> 11 Time Out <+> 11 Procedure <+> 11 Other Attendee 05/20/19 14:01:30 Business Administration Professor: ANNABELLEME Modifier: TAYLORME <+> 10 Case Attendee <+> 10 Role Performed <+> 10 Procedure 05/20/19 14:00:45 Business Administration Professor: ANNABELLEME Modifier: TAYLORME <+> 1 Procedure 2 <*> Procedure Knee Total Joint Revision(Left) 3 <*> Procedure Knee Total Joint Revision(Left) 4 <*> Procedure Knee Total Joint Revision(Left) 5 <*> Procedure Knee Total Joint Revision(Left) 6 <*> Procedure Knee Total Joint Revision(Left) 7 <*> Procedure Knee Total Joint Revision(Left) 8 <*> Procedure Knee Total Joint Revision(Left) 9 <*> Procedure Knee Total Joint Revision(Left) [facility] IntraOp Case Times Entry 1 Patient In Room Time 05/20/19 13:44:00 Out Room Time 05/20/19 16:54:00 Anesthesia Start Time 05/20/19 13:44:00 Stop Time 05/20/19 16:54:00 Surgery / Procedure Times Start Time 05/20/19 14:15:00 Stop Time 05/20/19 16:50:00 Last Modified By: PRESTON ALANIS RN 05/20/19 16:50:56 [facility] IntraOp Case Times Audit 05/20/19 16:50:56 Business Administration Professor: CHANTELL Modifier: CHANTELL <+> 1 Out Room Time <+> 1 Stop Time <+> 1 Stop Time 05/20/19 14:26:07 Business Administration Professor: CHANTELL Modifier: CHANTELL <+> 1 In Room Time <+> 1 Start Time [facility] IntraOp Cautery Entry 1 ESU Identification Cautery Type Monopolar ESU ID Number [id number] ID Type Hospital Number Cautery Settings Cut Setting 50 Coag Setting 50 ESU Grounding Pad Ground Pad Type Adult Grounding Pad Site Right thigh Grounding Pad RENETTA JOHN, RN Applied By Grounding Pad Site Warm, dry and intact Skin Condition Before Cautery Grounding Pad Site Unchanged Skin Condition After Cautery Last Modified By: PRESTON ALANIS RN 05/20/19 14:31:24 [facility] IntraOp Cautery Audit 05/20/19 14:31:24 Business Administration Professor: CHANTELL Modifier: CHANTELL <+> 1 Grounding Pad Site <+> 1 ID Number [facility] IntraOp Communication Entry 1 Entry 2 Communication To Family/Significant other Family/Significant other Comment START UPDATE Communication By RENETTA JOHN RN TAYLOR, MELISSA A, RN Date and Time 05/20/19 14:14:00 05/20/19 15:38:00 Last Modified By: PRESTON ALANIS RN TAYLOR, MELISSA A, RN 05/20/19 15:40:41 05/20/19 15:40:41 [facility] IntraOp Communication Audit 05/20/19 15:40:41 Business Administration Professor: CHANTELL Modifier: CHANTELL <+> 1 Communication By <+> 1 Date and Time <+> 2 Communication By <+> 2 Date and Time <+> 2 Communication To <+> 2 Comment [facility] IntraOp Counts Verification Entry 1 Procedure Knee Total Joint Revision(Left) Count Info Count Type Sponge, Sharps, Miscellaneous Counts Verification Baseline/pre-procedure Sequence Count Results Not Applicable Counts Performed By Count Performed By DIAN HOFFMANN (Scrub) Count Performed By RENETTA JOHN RN (RN) Last Modified By: PRESTON ALANIS RN 05/20/19 14:34:44 [facility] IntraOp Counts Verification Audit 05/20/19 14:34:44 Business Administration Professor: ANNABELLEME Modifier: ANNABELLEME 1 <*> Procedure Knee Total Joint Revision(Left) 1 <+> Count Performed By (Scrub) 1 <+> Count Performed By (RN) [facility] IntraOp Counts Final Entry 1 Procedure Knee Total Joint Revision(Left) Final Count Info Count Type Sponge, Sharps, Miscellaneous Counts Verification Skin Closure/end of Sequence procedure Count Results Correct, surgeon notified Counts Performed By Count Performed By Leona Ott, (Scrub) Allison Pref Card Builder Count Performed By PRESTON ALANIS RN (RN) Last Modified By: PRESTON ALANIS RN 05/20/19 16:28:44 [facility] IntraOp Counts Final Audit 05/20/19 16:28:44 Business Administration Professor: ANNABELLEME Modifier: ANNABELLEME 1 <*> Procedure Knee Total Joint Revision(Left) 1 <+> Count Performed By (Scrub) 1 <+> Count Performed By (RN) [facility] IntraOp Cultures and Spec Summary Entry 1 Cultrures and Specimens Specimen Ordered: Yes Test(s) Routine/Path-Lab, Requested/Final Culture(s)/Microbiology Disposition Last Modified By: PRESTON ALANIS RN 05/20/19 13:59:09 [facility] IntraOp Departure from OR Entry 1 Integumentary Assessment Integumentary WDL Assessment WDL Transfer/Handoff Transfer to PACU Phase I Handoff Method Phone call Handoff Reported to THI STEPHENSON RN Post-op Transport Stretcher/Calrrosie Via Patient Transport PRESTON ALANIS RN, Accompanied by SUZIE DAY, VARNISH THINNER, PRINT BUYER-ANS Last Modified By: PRESTON ALANIS RN 05/20/19 13:59:58 [facility] IntraOp Drains and Tubes Entry 1 Device Type Hemovac Size LEFT KNEE Drain/Tube Activity Inserted Drain/Tube Drainage Red Device Location LEFT KNEE Tube Dressing Dry, Intact Condition Last Modified By: PRESTON ALANIS RN 05/20/19 14:04:14 [facility] IntraOp Dressing and Packing Entry 1 Entry 2 Type Dressing Dressing Location LEFT KNEE LEFT KNEE Wound Dressing Item Other, Skin Closure Glue Other, Skin Closure Glue Wound Packing Type Tape Type Supplemental Limb immobilizer Limb immobilizer Applications Applied By ELEUTERIO COLUNGA CSA Other Comments Frock Advisor, Bright Pattern, Last Modified By: PRESTON ALANIS RN TAYLOR, MELISSA A, RN 05/20/19 14:01:17 05/20/19 14:01:54 [facility] IntraOp Dressing and Packing Audit 05/20/19 14:01:54 Business Administration Professor: CHANTELL Modifier: CHANTELL <+> 2 Type <+> 2 Location <+> 2 Wound Dressing Item <+> 2 Applied By <+> 2 Supplemental Applications <+> 2 Other Comments [facility] IntraOp Fire Risk Assessment Entry 1 Fire Info Surgical Site or 0- No Incision Above the Xyphoid Open O2 Source 0- No (Mask or Cannula) Available Ignition 1- Yes (ESU, Laser, Light Source) Fire Risk 1 Assessment Score Fire Score Fire Risk Yes Assessment Complete Fire Risk PRESTON ALANIS RN Assessment Verified By Fire Risk 05/20/19 14:27:00 Assessment Verified Date/Time Fire Risk Standard Fire Yes Safety Precautions Followed Last Modified By: PRESTON ALANIS RN 05/20/19 14:27:12 [facility] IntraOp Fire Risk Assessment Audit 05/20/19 14:27:12 Business Administration Professor: CHANTELL Modifier: ANNABELLEME <+> 1 Fire Risk Assessment Verified By <+> 1 Fire Risk Assessment Verified Date/Time [facility] IntraOp General Case Studio Model 1 Case Information OR OR 04 [facility] Case Level 1 Room Verified Yes Wound Class I - Clean Specialty SN Orthopedic Anesthesia Type General ASA Class 3 Diagnosis Preop Diagnosis LEFT KNEE INFECTED TOTAL KNEE ARTHROPLASTY Postop Same As Preop No Postop Diagnosis SEE MD POST OP NOTES Last Modified By: PRESTON ALANIS RN 05/20/19 14:26:30 [facility] IntraOp General Case Data Audit 05/20/19 14:26:30 Business Administration Professor: TAYLORME Modifier: TAYLORME <+> 1 ASA Class [facility] IntraOp Implant Log Entry 1 Entry 2 Entry 3 Type Implant (Synthetic) Implant (Synthetic) Implant (Synthetic) Implant Log Implant Type Bone Cement Bone Cement Other Tissue Implant Type Implant CEMENT BONE SURG SMPLX CEMENT BONE SURG SMPLX PUTY OSTEOBST BN VD Identification P [id number] [id number] FILL [id number] Description Implant Quantity 2 2 1 Implant Site LEFT KNEE LEFT KNEE LEFT KNEE Implant Identification Model Number Implant Identification Serial Number Implant [id number] Identification Lot Number Implant Breana:Breana Breana:Breana [employer] [facility] Identification Orthopaedics Orthopaedics Leasing Sales Consultant Name: Implant [id number] Identification Catalog Number Implant Size Implant Has an Yes Yes Yes Expiration Date Implant Expiration 05/02/21 04/02/21 10/31/21 Date Wasted Radioactive Material Time Implanted Tissue Implant Continue for Tissue Implant Documentation Tissue Identification Number Graft Prep Per Leasing Sales Consultant Instructions: Tissue Preparation Method: Reconstitution Solution: Reconstitution Solution Lot Number Reconstitution Solution Expiration Date: Thawing Solution Thawing Solution Lot Number Thawing Solution Expiration Date Preparation Materials, Other Preparation Materials, Other Lot Number Preparation Materials, Other Expiration Date Tissue Prepared/Processed By Leasing Sales Consultant Paperwork Completed Implant Type Comment Last Modified By: PRESTON ALANIS RN TAYLOR, MELISSA A, RN TAYLOR, MELISSA A, RN 05/20/19 14:38:06 05/20/19 15:31:45 05/20/19 14:36:36 Entry 4 Entry 5 Entry 6 Type Implant (Synthetic) Implant (Synthetic) Implant (Synthetic) Implant Log Implant Type Hardware Hardware Hardware Tissue Implant Type Implant COMP FEM PS KEITH NO.5 STEM CEMENTED BASEPLT TRIATHLON Identification [id number] Description Implant Quantity 1 1 1 Implant Site LEFT KNEE LEFT KNEE LEFT KNEE Implant Identification Model Number Implant Identification Serial Number Implant [id number] Identification Lot Number Implant Breana:Breana Wheeler:Breana Breana:Breana Identification Orthopaedics Orthopaedics Orthopaedics Leasing Sales Consultant Name: Implant [id number] Identification Catalog Number Implant Size Implant Has an Yes Yes Yes Expiration Date Implant Expiration 12/15/23 12/19/23 09/24/23 Date Wasted Radioactive Material Time Implanted Tissue Implant Continue for Tissue Implant Documentation Tissue Identification Number Graft Prep Per Leasing Sales Consultant Instructions: Tissue Preparation Method: Reconstitution Solution: Reconstitution Solution Lot Number Reconstitution Solution Expiration Date: Thawing Solution Thawing Solution Lot Number Thawing Solution Expiration Date Preparation Materials, Other Preparation Materials, Other Lot Number Preparation Materials, Other Expiration Date Tissue Prepared/Processed By Leasing Sales Consultant Paperwork Completed Implant Type Comment Last Modified By: PRESTON ALANIS RN TAYLOR, MELISSA A, RN TAYLOR, MELISSA A, RN 05/20/19 16:06:58 05/20/19 16:06:58 05/20/19 16:06:58 Entry 7 Type Implant (Synthetic) Implant Log Implant Type Hardware Tissue Implant Type Implant INSRT TIB ??#6 Identification [id number] Description Implant Quantity 1 Implant Site LEFT KNEE Implant Identification Model Number Implant Identification Serial Number Implant [id number] Identification Lot Number Implant Wheeler:Wheeler Identification Orthopaedics Leasing Sales Consultant Name: Implant [id number] Identification Catalog Number Implant Size Implant Has an Yes Expiration Date Implant Expiration 05/01/22 Date Wasted Radioactive Material Time Implanted Tissue Implant Continue for Tissue Implant Documentation Tissue Identification Number Graft Prep Per Leasing Sales Consultant Instructions: Tissue Preparation Method: Reconstitution Solution: Reconstitution Solution Lot Number Reconstitution Solution Expiration Date: Thawing Solution Thawing Solution Lot Number Thawing Solution Expiration Date Preparation Materials, Other Preparation Materials, Other Lot Number Preparation Materials, Other Expiration Date Tissue Prepared/Processed By Leasing Sales Consultant Paperwork Completed Implant Type Comment Last Modified By: PRESTON ALANIS RN 05/20/19 16:21:15 [facility] IntraOp Implant Log Audit 05/20/19 16:21:15 Business Administration Professor: CHANTELL Modifier: CHANTELL <+> 7 Implant Identification Description <+> 7 Implant Identification Lot Number <+> 7 Implant Identification Leasing Sales Consultant Name: <+> 7 Implant Expiration Date <+> 7 Implant Site <+> 7 Implant Quantity <+> 7 Implant Identification Catalog Number <+> 7 Implant Type <+> 7 Implant Has an Expiration Date <+> 7 Type 05/20/19 16:06:58 Business Administration Professor: CHANTELL Modifier: CHANTELL <+> 4 Implant Identification Description <+> 4 Implant Identification Lot Number <+> 4 Implant Identification Leasing Sales Consultant Name: <+> 4 Implant Expiration Date <+> 4 Implant Identification Catalog Number <+> 5 Implant Identification Description <+> 5 Implant Identification Lot Number <+> 5 Implant Identification Leasing Sales Consultant Name: <+> 5 Implant Expiration Date <+> 5 Implant Identification Catalog Number <+> 6 Implant Identification Description <+> 6 Implant Identification Lot Number <+> 6 Implant Identification Leasing Sales Consultant Name: <+> 6 Implant Expiration Date <+> 6 Implant Site <+> 6 Implant Quantity <+> 6 Implant Identification Catalog Number <+> 6 Implant Type <+> 6 Implant Has an Expiration Date <+> 6 Type 05/20/19 15:31:45 Business Administration Professor: CHANTELL Modifier: ANNABELLEME 2 <*> Implant Identification Description CEMENT BONE SMPLX PRO FULL [id number] 2 <*> Implant Identification Catalog [id number] Number 05/20/19 14:38:06 Business Administration Professor: CHANTELL Modifier: ANNABELLEME 1 <*> Implant Identification Description [id number] 1 <+> Implant Identification Leasing Sales Consultant Name: 1 <+> Implant Identification Catalog Number 05/20/19 14:37:13 Business Administration Professor: CHANTELL Modifier: ANNABELLEME <+> 5 Implant Site <+> 5 Implant Quantity <+> 5 Implant Type <+> 5 Implant Has an Expiration Date <+> 5 Type 05/20/19 14:36:36 Business Administration Professor: CHANTELL Modifier: ANNABELLEME 1 <+> Implant Identification Description 1 <+> Implant Identification Lot Number 1 <+> Implant Expiration Date 1 <*> Implant Quantity 3 2 <+> Implant Identification Description 2 <+> Implant Identification Lot Number 2 <+> Implant Identification Leasing Sales Consultant Name: 2 <+> Implant Expiration Date 2 <*> Implant Quantity 1 2 <+> Implant Identification Catalog Number 2 <*> Implant Type Other 3 <+> Implant Identification Description 3 <+> Implant Identification Lot Number 3 <+> Implant Identification Leasing Sales Consultant Name: 3 <+> Implant Expiration Date 3 <+> Implant Identification Catalog Number 3 <*> Implant Type Hardware [facility] IntraOp Intraoperative Assessment Entry 1 Handoff Method Phone call, Online nursing summary Valid History / Yes Physical in Chart Preoperative Yes Checklist Reviewed/Evaluated Allergies Reviewed Yes Patient is Latex No Sensitive Isolation Not applicable Precautions Noted Level of WDL Consciousness (WDL = Alert, Oriented to Person, Place, and Time) Skin Assessment Yes Verified Present Upon IVs Arrival to OR Last Modified By: PRESTON ALANIS RN 05/20/19 14:03:35 [facility] IntraOp Intraoperative Equipment Entry 1 Type Equipment Equipment Equipment Dorinda Suction System ID Number [id number] Intraop Monitoring Antiembolic Devices Antiembolic Devices Sequential compression device, knee high Antiembolic Device Right Location Antiembolic Device [id number] ID Number Scopes Photo/Video Documentation Last Modified By: PRESTON ALANIS RN 05/20/19 14:31:04 [facility] IntraOp Medication Admin Entry 1 Entry 2 Entry 3 Medication/Irrigant Bacitracin 50,000units Bacitracin 50,000units NS 0.9% 50ml injection powder vial powder vial - [id number] Combo Med List Time Administered Route of IRRIGATION IRRIGATION MIXED WITH BACITRACIN Administration Dose Dose [id number] 10 Unit of Measure units units ml Volume IN 3000MLS OF NACL IN 2000MLS OF NACL Administered By LION DAVIS KARTHIKEYAN, THARUN, KARTHIKEYAN, THARUN, MD-ORT MD-ORT MD-ORT Procedure Irrigation Irrigant Volume In Irrigant Volume Out Last Modified By: PRESTON ALANIS RN TAYLOR, MELISSA A, RN TAYLOR, MELISSA A, RN 05/20/19 14:07:18 05/20/19 14:07:18 05/20/19 14:07:18 General Comments: 20MLS OF BETADINE SOLUTION IN 500MLS OF NACL TRANEXAMIC ACID 20MG ON FIELD- SEE PHARMACY NOTE PAIN INJECTION ON FIELD - SEE PHARMACY NOTE VANCOMYCIN 4 GRAMS IN OSTEOBOOST BEAD VANCOMYCIN 3 GRAMS AND TOBRAMYCIN 1.2GRAMS X 3 FOR ANTIBIOTIC SPACER [facility] IntraOp Patient Positioning Entry 1 Procedure Knee Total Joint Revision(Left) Body Position Supine Left Arm Position Secured on padded arm board Right Arm Position Secured on padded arm board Left Leg Position Held on field Right Leg Position Uncrossed, parallel Feet Uncrossed Yes Pressure Points Yes Checked Positioning Devices Arm Board, Head Rest, Pad, Arm, Pad, Elbow, Other, Safety Strap, Chest Device Position TOTAL KNEE STABILIZER AND LATERAL POST Positioned By LION DAVIS MD-ORT, RENETTA JOHN RN, DIAN HOFFMANN, Baljinder Aj, COURTNEY, ELEUTERIO COULNGA, CSA Position Verified Positioning Yes Verified by Anesthesia Positioning Yes Verified by Surgeon Last Modified By: PRESTON ALANIS RN 05/20/19 14:32:47 [facility] IntraOp Sign In Entry 1 Patient, Site, Yes Procedure Identified Surgical Consent Yes Confirmed Relevant Surgical Yes Documents Available Surgical Site Yes Marked by person performing procedure Anesthesia Machine Yes Check Completed Medication Checks Yes Completed Allergies No Airway Difficult Yes Airway/Aspiration Risk Difficult Yes Airway/Aspiration Intervention Equipment Available Blood Loss Risk Yes Blood Loss Yes Intervention Equipment Prepared and Ready Blood Identifiers Yes Verified Per Policy Hypothermia Risk Yes Warming Measures Yes Taken Last Modified By: PRESTON ALANIS RN 05/20/19 14:00:31 [facility] IntraOp Sign Out Entry 1 RN Confirmation [...] Checklist Yes Elements Complete? RN Sign Out PRESTON ALANIS RN Signature RN Sign Out 05/20/19 16:56:00 Signature Date/Time Plan of Care Outcome - [...] related to extraneous objects Last Modified By: PRESTON ALANIS RN 05/20/19 16:51:18 [facility] IntraOp Sign Out Audit 05/20/19 16:51:18 Business Administration Professor: CHANTELL Modifier: CHANTELL <+> 1 RN Sign Out Signature Date/Time [facility] IntraOp Skin Prep Entry 1 Procedure Knee Total Joint Revision(Left) Prescribed Yes Pre-Surgical Prep Completed Prep Area LEFT LEG Intraop Prep Integumentary WDL Assessment WDL Prep Agents Alcohol, Chlorhexadine gluconate, Chloraprep, DuraPrep Prep by RENETTA JOHN RN Hair Removal Methods No hair removal performed Last Modified By: PRESTON ALANIS RN 05/20/19 14:33:43 [facility] IntraOp Surgical Procedures Entry 1 Procedure Knee Total Joint Revision Modifiers Left Additional (LT TOTAL KNEE Procedure ARTHROPLASTY EXPLANT Description WITH INSERTION OF ANTIBIOTIC SPACER) Primary Procedure Yes Primary Surgeon LION DAVIS MD-ORT Start 05/20/19 14:15:00 Stop 05/20/19 16:50:00 Anesthesia Type General Specialty SN Orthopedic Wound Class I - Clean Last Modified By: PRESTON ALANIS RN 05/20/19 16:51:02 [facility] IntraOp Surgical Procedures Audit 05/20/19 16:51:02 Business Administration Professor: ANNABELLEME Modifier: ANNABELLEME <+> 1 Stop 05/20/19 14:27:06 Business Administration Professor: ANNABELLEME Modifier: ANNABELLEME <+> 1 Start [facility] IntraOp Temp Regulation Devices Entry 1 Temp Regulation Temperature Forced Air Warming Regulation Device device, Warm blankets Temperature Upper body Regulation Site Temperature Baljinder Aj, PRINT BUYER Regulation Device Applied by Last Modified By: PRESTON ALANIS RN 05/20/19 14:33:12 [facility] IntraOP Time Out Entry 1 Procedure to be Knee Total Joint Performed Revision(Left) Time Out Time Out Pause Time 05/20/19 14:14:00 All activity Yes suspended (unless life threatening [...] prepped/draped, Performed before each procedure if multiple procedures, Reconcile problems if responses among team members differ Antibiotic Yes Prophylaxis Administered Or In Progress Within the Last 60 Minutes Beta Som N/A Administered Venous Yes Thromboembolism Prophylaxis Required Anticipated Critical Events Surgeon None expected Anesthesia Provider None expected Nursing Assures Sterility of instruments, Equipment concerns or issues, Implant Availability Essential Imaging N/A Labeled and Displayed Last Modified By: PRESTON ALANIS RN 05/20/19 14:25:26 [facility] IntraOP Time Out Audit 05/20/19 14:25:26 Business Administration Professor: CHANTELL Modifier: ANNABELLEME 1 <+> Time Out Pause Time 1 <*> Procedure to be Performed Knee Total Joint Revision(Left) [facility] IntraOp Tourniquet Entry 1 Type Pneumatic Serial/Unit Number [id number] Setting 300 Pheumatic Yes Tourniquet Checked Per Protocol Size 34 inches Placement Thigh, left upper Skin Protection - Yes Padded Under Cuff Applied By ELEUTERIO COLUNGA, CSA Removed By ELEUTERIO COLUNGA, CSA Times Start Time 05/20/19 14:14:00 Stop Time 05/20/19 15:58:00 Last Modified By: PRESTON ALANIS RN 05/20/19 16:52:27 [facility] IntraOp Tourniquet Audit 05/20/19 16:52:27 Business Administration Professor: CHANTELL Modifier: TAYLORME <+> 1 Stop Time 05/20/19 14:34:33 Business Administration Professor: CHANTELL Modifier: ANNABELLEME 1 <+> Setting 1 <+> Applied By 1 <+> Removed By 1 <+> Placement 1 <+> Type 1 <+> Serial/Unit Number 1 <+> Pheumatic Tourniquet Checked Per Protocol 1 <+> Size 1 <+> Skin Protection - Padded Under Cuff 1 <*> Start Time 05/20/19 14:14:00 Case Comments <None> Finalized By: MALVIN KENT Document Signatures Signed By: PRESTON ALANIS RN 05/20/19 16:52 MALVIN KENT 05/22/19 16:41 Unfinalized History Date/Time Username Reason for Unfinalizing Freetext Reason for Unfinalizing 05/22/19 16:38 WATTSDR Correct Billing documented in this encounter Plan of Treatment Not on file documented as of this encounter Visit Diagnoses Not on filedocumented in this encounter Care Teams Recreation Establishment Manager Relationship Specialty Start Date End Date Alfredo Aguiar MD [address] [place], [place] [address] PCP - General Adolescent Medicine 10/16/22 10/19/22 Alfredo Aguiar MD [address] [place] [address] PCP - General Adolescent Medicine 10/20/22 documented as of this encounter
--- OUTSIDE RECORDS SUMMARY | 2025-01-23 15:55 | XMS_ITS | Encounter Summary ---
Author Organization [facility] [employer] Address [address] [place] [address] Care Team Providers Care Helpdesk Administrator Name Role Phone Alfredo Aguiar MD Primary Care Provider + [phone] Alfredo Aguiar MD Primary Care Provider + [phone] Encounter Details Date Type Department Care Team (Late st Contact Info) Description 08/17/2019 Transcribed Document [facility] [place] [facility] [place] [address] ProviderEryn MD [address] [place] [id number] Social History Tobacco Use Types Packs/Day Years Used Date Smoking Tobacco: Never Assessed Sex and Gender Information Value Date Recorded Sex Assigned at Not on file Legal Sex Male 5:45 PM CDT Gender Identity Not on file Sexual Orientation Not on file documented as of this encounter Miscellaneous Notes * Cerner Conversion Note - Eryn Arcos MD - 08/17/2019 1:00 PM [facility] Main OR Preop Summary Primary Physician: LION DAVIS MD-ORT Finalized Date/Time: 08/17/19 13:43:34 Pt. Name: LORA JAIN JR/Sex: 1940 Male Med Rec #: [id number] Physician: LION DAVIS MD-ORT Financial #: [id number] Pt. Type: I Room/Bed: ASA/3 Admit/Disch: 08/17/19 07:12:00 - Institution: [facility] PreOp Case Times Entry 1 In Preop 08/17/19 09:16:00 Ready for Holding n/a Room Patient Ready for 08/17/19 11:59:00 Surgery Patient Out of Preop 08/17/19 13:41:00 Patient Out of n/a Holding Room Last Modified By: CASIE BAE RN 08/17/19 13:43:32 [facility] PreOp Case Times Audit 08/17/19 13:43:32 Print Washer: CHIDILINC Modifier: BOWLINC <+> 1 Patient Out of Preop 08/17/19 12:00:07 Print Washer: LAUREEN Modifier: BOWLINC <+> 1 Patient Ready for Surgery Finalized By: CASIE BAE, RN Document Signatures Signed By: CASIE BAE RN 08/17/19 13:43 Electronically signed by [facility] Conversion Fur Dresser Cerner at 11/18/2022 9:41 AM CDT documented in this encounter Plan of Treatment Not on file documented as of this encounter Visit Diagnoses Not on filedocumented in this encounter Care Teams Helpdesk Administrator Relationship Specialty Start Date End Date Alfredo Aguiar MD [address] [place] [address] PCP - General Adolescent Medicine 10/16/22 10/19/22 Alfredo Aguiar MD [address] [place] [address] PCP - General Adolescent Medicine 10/20/22 documented as of this encounter
--- OUTSIDE RECORDS SUMMARY | 2025-01-23 15:55 | XMS_ITS | Encounter Summary ---
Author Organization [employer] Address [address] [place] [address] Care Team Providers Care Field Technical Assistant Name Role Phone Alfredo Aguiar MD Primary Care Provider + [phone] Alfredo Aguiar MD Primary Care Provider + [phone] Encounter Details Date Type Department Care Team (Late st Contact Info) Description 08/17/2019 Transcribed Document [address] [id number] Guillermina Allison MD [facility] [place] [address] Social History Tobacco Use Types Packs/Day Years Used Date Smoking Tobacco: Never Assessed Sex and Gender Information Value Date Recorded Sex Assigned at Not on file Legal Sex Male 5:45 PM CDT Gender Identity Not on file Sexual Orientation Not on file documented as of this encounter Miscellaneous Notes * Cerner Conversion Note - Guillermina Allison MD - 08/17/2019 5:40 PM EST DATE OF PROCEDURE: 08/17/2019 ORTHOPEDIC SURGERY OPERATIVE REPORT SURGEON: Guillermina Allison MD PREOPERATIVE DIAGNOSIS: Infected left total knee arthroplasty, 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 PROCEDURES PERFORMED: 1. Revision, left total knee arthroplasty to include entire femoral and tibial components. 2. Placement of absorbable antibiotic cement beads, left knee. SERVICE CENTER REPRESENTATIVE: Chris Ag. ANESTHESIA: General endotracheal anesthesia with femoral and sciatic nerve blocks. ESTIMATED BLOOD LOSS: 100 mL. TOTAL TOURNIQUET TIME: 120 minutes. COMPLICATIONS: None. IMPLANTS USED: 1. [place] Triathlon, size 6, total stabilized femoral component with 5 mm distal medial, 5 mm distal lateral, and 5 mm posterolateral augments, with an 18 x 150 mm diaphyseal engaging femoral stem. 2. Triathlon size 5 universal tibial baseplate with a 16 x 100 mm diaphyseal engaging stem with a 25 mm stem adapter with no offset. 3. Breana Tritanium size B tibial cone augment. 4. 35 mm asymmetric patellar button. 5. 22 mm posterior stabilized tibial insert. INDICATIONS FOR PROCEDURE: Mr. Vázquez is a very pleasant 78-year-old gentleman, in whom I performed a left total knee arthroplasty approximately 18 months ago. 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 Cultures were positive for Streptococcus mutans. He underwent explantation of his components with placement of an articulating antibiotic cement spacer as part of a two-stage revision. He has completed a protracted course of intravenous antibiotics. His inflammatory markers have normalized. Repeat aspiration was negative for signs of persistent prosthetic joint infection. He, therefore, presents for reimplantation of his components. The risks, benefits, and alternatives were explained to him in detail, and he voiced his agreement. INTRAOPERATIVE FINDINGS: Overall, fairly straight forward. We did use an articulating spacer. There was a minimally displaced fracture of the proximal tibia at the time of explantation. As a result, we did utilize the universal tibial baseplate with a short stem as part of our spacer construct. Despite the articulating construct, the knee was really quite stiff with motion from 0 to only about 60 degrees preoperatively. Upon entering the joint, no significant purulence. We did perform significant synovectomies, significant lateral release primarily for exposure purposes. The fracture of the medial tibia was largely healed, but the fracture line was still visible. Because of the fracture, we did utilize a diaphyseal engaging tibial stem. The tibial defect was easily managed with a symmetric cone augment. The femoral side fairly straight forward. Minimal augments as noted above. The patella measured 18 mm thick at the outset, so we did have plenty of bone stock remaining for resurfacing. The post reconstructed thickness was 26 mm. Again, significant lateral release for exposure and the patella did track normally. We did utilize 10 mL of Osteoboost beads containing 4 g of vancomycin. Stability was excellent throughout the case with only posterior stabilized poly. 0 mm of medial, lateral gapping at 0 to 20 degrees. At 90 degrees, we had approximately 2 to 3 mm of lateral gapping. Range of motion with the capsule close 0 to 110 degrees. DESCRIPTION OF PROCEDURE: The patient was identified in the preop holding and the appropriate left lower extremity was marked. He was transferred to the operating theater. General anesthesia was induced by the attending Anesthesia staff. The patient was given 2 g of Ancef for preop antibiotic prophylaxis as well as 1 g of intravenous tranexamic acid. Tourniquet was placed to the proximal aspect of the left thigh. Left leg was prepped and draped in the usual sterile fashion. Time-out was performed and appropriate patient and operative extremity were confirmed. Leg was exsanguinated with an Esmarch bandage. Tourniquet inflated to 200 mmHg. The patient's previous midline skin incision was utilized and extended several centimeters proximally and distally. Full-thickness medial and lateral skin flaps were created. A standard medial parapatellar arthrotomy was performed. We performed an extensive medial release. Swabs were taken and sent for culture. We performed thorough medial and lateral synovectomies in order to reestablish the gutters. We performed extensive lateral release at the offset of approximately 8 cm in order to improve the exposure. Next, the knee was flexed up. Existing polyethylene component was easily extracted. We turned our attention to femoral component removal. The interface was cleared of all soft tissues. It was disrupted with osteotomes. Femoral component was then easily extracted. The existing femoral was then removed. A reverse curette was then used to thoroughly debride the femoral canal. We then turned our attention to tibial exposure. We performed a thorough posteromedial release. We thoroughly debrided the posterolateral gutter. The tibial interface was cleared of soft tissues. It was disrupted with osteotomes. The tibial component along with the stem was then easily extracted using the tibial extraction slap hammer. Residual cement was then removed from the tibia. The tibial canal was likewise cleaned with reverse curette. Next, both the femur and tibia were reamed to accept the above-mentioned stems. With the tibial reamer in place, a freshening cut was made off the tibia. We sized the tibia to a size 5. The guide pin in the appropriate amount of external rotation was inserted at the medial third of the tibial tubercle. Keel was drilled and punched. Fortunately, no offset was required. We then replaced a tibial reamer in the canal. We prepared over the reamer for a cone augment. A cone reamer was then passed to prepare the proximal tibia for a size B cone. The cone trial was placed followed by placement of the tibial trial. Rotation was marked. We had excellent rotational control. We turned our attention to femoral preparation. The femur was cleared of all overlying soft tissue. It was sized to a size 6. A size 6 TCG block with the above-mentioned stem was then inserted onto the femur. The knee was balanced first in flexion and then brought out into full extension and pinned. Distal and posterior femur were then prepared to accept the above-mentioned augments. The box was deepened. Femoral trial was placed. Poly trials were placed. The knee was tested throughout the range of motion, which was found to be exquisitely stable. Next, the patella was everted. It was cleared of soft tissue. The existing cement button was removed. The patella was measured. There was found to be enough bone stock remaining for resurfacing. Freshening cut was made of the patella. The patella was then sized to size 35. Lug holes were drilled. Trial button was placed and construct tracked very well. At this point, trials were removed. The final tibial cone trial was then impacted with careful attention paid to rotation. The exposed bony ends were then thoroughly irrigated and dried. Final implants were assembled on the back table. Cementation upon components took place as a single stage using three bags of high viscosity Simplex cement with gentamicin. We utilized a hybrid technique with cement on the exposed bony surfaces as well as the metaphysis with diaphyseal engaging stems. Stable component was impacted in place followed by the femoral components. Tibial trial was placed. The knee was held in extension. Patellar button was then placed and clamped. The knee was held in extension to complete cement curing. During this time, the extensor mechanism of the soft tissues were infiltrated with pain cocktail. On complete cement curing, the knee was retested for stability throughout the range of motion, which was found to be appropriate. Poly trial was removed. Baseplate was irrigated. Final poly impacted in place. Next, tourniquet was let down. Bleeding was controlled with electrocautery. The wound was thoroughly irrigated with dilute Betadine lavage and normal saline. A drain was placed in lateral gutter and brought through the skin. A 10 mL Osteoboost beads containing 4 g of vancomycin as well as 2 g of topical tranexamic acid were applied to the joint. The arthrotomy was closed with #1 Stratafix. Skin was closed in layers with Vicryl, Stratafix, and skin joshua. The wound was then covered with a WENDI negative pressure wound dressing. Next, drapes were removed. The operative extremity was placed in a compression Scot wrap as well as a Cryo/Cuff. He was then transferred to a stretcher, extubated without incident and taken to PACU in stable condition. All instrument, sponge, and needle counts were correct at the end of the case. /[id number] Guillermina Allison MD TK/AQ / TK / MODL /[id number] documented in this encounter Plan of Treatment Not on file documented as of this encounter Visit Diagnoses Not on filedocumented in this encounter Care Teams Field Technical Assistant Relationship Specialty Start Date End Date Alfredo Aguiar MD [address] [place] [id number] PCP - General Adolescent Medicine 10/16/22 10/19/22 Alfredo Aguiar MD [address] [place] [address] PCP - General Adolescent Medicine 10/20/22 documented as of this encounter
--- OUTSIDE RECORDS SUMMARY | 2025-01-23 15:55 | XMS_ITS | Encounter Summary ---
Author Organization [employer] Address [address] [place] [address] Care Team Providers Care Mechanical Engineering Officer Name Role Phone Alfredo Aguiar MD Primary Care Provider + [phone] Alfredo Aguiar MD Primary Care Provider + [phone] Encounter Details Date Type Department Care Team (Late st Contact Info) Description 08/18/2019 Transcribed Document [facility] [place] [address] [place] [address] ProviderEryn MD [address] [place], [place] [id number] Social History Tobacco Use Types Packs/Day Years Used Date Smoking Tobacco: Never Assessed Sex and Gender Information Value Date Recorded Sex Assigned at Not on file Legal Sex Male 5:45 PM CDT Gender Identity Not on file Sexual Orientation Not on file documented as of this encounter Miscellaneous Notes * Cerner Conversion Note - Eryn ProviderMD - 08/18/2019 12:00 PM SECURITY SYSTEM SALES CONSULTANT Pain Assessment Entered On: 08/18/2019 16:41 EST Performed On: 08/18/2019 12:06 EST by MATT JAIN RN Intervention Information: acetaminophen Performed by MATT JAIN RN on 08/18/2019 11:06:00 EST acetaminophen,1000mg Oral Pain Assessment Pain Assessment [...] on filedocumented in this encounter Care Teams Mechanical Engineering Officer Relationship Specialty Start Date End Date Alfredo Aguiar MD [address] [place] [address] PCP - General Adolescent Medicine 10/16/22 10/19/22 Alfredo Aguiar MD [address] [place] [address] PCP - General Adolescent Medicine 10/20/22 documented as of this encounter
--- OUTSIDE RECORDS SUMMARY | 2025-01-23 15:55 | XMS_ITS | Encounter Summary ---
Author Organization [employer] [place] [employer] Address [address] [place] [address] Care Team Providers Care Service Desk Manager Name Role Phone Alfredo Aguiar MD Primary Care Provider + [phone] Alfredo Aguiar MD Primary Care Provider + [phone] Encounter Details Date Type Department Care Team (Late st Contact Info) Description 08/17/2019 Transcribed Document [facility] Family Medicine [facility] [place] [place] [address] ProviderEryn MD [address] [place] [id number] Social History Tobacco Use Types Packs/Day Years Used Date Smoking Tobacco: Never Assessed Sex and Gender Information Value Date Recorded Sex Assigned at Not on file Legal Sex Male 5:45 PM CDT Gender Identity Not on file Sexual Orientation Not on file documented as of this encounter Miscellaneous Notes * Cerner Conversion Note - Eryn Arcos MD - 08/17/2019 6:35 PM COMPENSATION ADJUSTER Evaluation, Occupational Therapy Entered On: 08/18/2019 13:18 EST Performed On: 08/18/2019 10:36 EST by Jere Viramontes STUDENT-OCCUPATIONAL THERAPIST General Information, OT Visit Type, OT : Initial evaluation Jere Viramontes STUDENT-OCCUPATIONAL THERAPIST - 08/18/2019 13:11 EST Patient Orders : Order Date Order Ordering 08/17/2019 18:36 OT Evaluation and Treatment Ordered By: LION DAVIS MD-ORT 08/17/2019 18:36 OT Treatment Instructions Ordered By: LION DAVIS MD-ORT Active Diagnoses : 08/18/2019 12:00 Presence of unspecified artificial knee joint YEIMI WALKER OTR/Jacobo - 08/18/2019 13:33 EST Therapy Diagnosis, OT : Decreased independence with ADL's Onset of Problem, OT : 08/18/2019 EST Jere Viramontes STUDENT-OCCUPATIONAL THERAPIST - 08/18/2019 13:11 EST Admission Date : 08/17/2019 07:12 YEIMI WALKER OTR/Jacobo - 08/18/2019 13:33 EST Co-treated by, OT : Physical Therapist Jere Viramontes STUDENT-OCCUPATIONAL THERAPIST - 08/18/2019 13:11 EST Personal Devices : Personal Devices No Devices Recorded Assistive Devices : Assistive Devices No Devices Recorded YEIMI WALKER OTR/Jacobo - 08/18/2019 13:[address] : Fall prevention measures General Information Comment, OT : Jacobo TKA Jere Viramontes STUDENT-OCCUPATIONAL THERAPIST - 08/18/2019 13:11 EST General Status Patient Received Status : Supine in bed Treatment Start Time : 08/18/2019 10:36 EST Patient Left Status : Up in chair, RN/PCT informed, Family/Visitors at bedside, All needs met and within reach Treatment End Time : 08/18/2019 11:10 EST Treatment Time : 34 Minute(s) Jere Viramontes STUDENT-OCCUPATIONAL THERAPIST - 08/18/2019 13:11 EST History and Environment, OT Living Situation, Therapy : Home Patient Lives With : Spouse Persons Assisting Patient at Home : Alone Professional Skilled Services : None Persons Providing Information : Patient, Child/Children Home Setup : One story Stairs : No Jere Viramontes STUDENT-OCCUPATIONAL THERAPIST - 08/18/2019 13:11 EST Prior LOF Bathing, OT : Independent Prior LOF Bed Mobility : Independent Prior LOF Upper Body Dressing, OT : Independent Prior LOF Lower Body Dressing, OT : Independent Prior LOF Toileting : Independent Prior LOF Transfer : Independent Prior LOF Grooming, OT : Independent Prior LOF for IADLs, OT : Independent Jere Viramontes STUDENT-OCCUPATIONAL THERAPIST - 08/18/2019 13:11 EST Upper Extremity Right UE Active ROM : WFL Right UE Strength : WFL Left UE Active ROM : WFL Left UE Strength : WFL Right UE Strength : WFL Left UE Strength : WFL Jere Viramontes STUDENT-OCCUPATIONAL THERAPIST - 08/18/2019 13:11 EST Self Care/Home Management, OT Self Feeding Assist Level, OT : Independent, complete Grooming Assist Level, OT : Supervision or set-up Bathing Assist Level, OT : Assist, moderate Upper Body Dressing Assist Level, OT : Supervision or set-up Lower Body Dressing Assist Level, OT : Assist, moderate Toileting Assist Level : Supervision or set-up Toilet Transfer Assist Level : Assist, moderate Toilet Transfer Device : Belt, gait Toilet Transfer Device Comment : x2 Jere Viramontes STUDENT-OCCUPATIONAL THERAPIST - 08/18/2019 13:11 EST Functional Mobility Mobility Grid Supine to Sit : Supervision/set-up Sit to Stand : Rehab Moderate assistance Stand to Sit : Rehab Moderate assistance Jere Viramontes STUDENT-OCCUPATIONAL THERAPIST - 08/18/2019 13:11 EST Cognition Assessment, OT Orientation : Oriented x 4 Jere Viramontes STUDENT-OCCUPATIONAL THERAPIST - 08/18/2019 13:11 EST Plan of Care, OT OT Tx Plan/Goals Established w Patient : Yes OT Frequency Rehab : Five days per week OT Duration Rehab : Fourteen days OT Treatments Planned : Activities of daily living, Balance training, Functional mobility training Jere Viramontes STUDENT-OCCUPATIONAL THERAPIST - 08/18/2019 13:11 EST Pastoral Assistant Goals, OT Grooming LTG Grid Goal #1 Activity : Grooming Assist : Independent, modified Date to Meet : 09/01/2019 EST Goal Status : Initial goal Jere Viramontes STUDENT-OCCUPATIONAL THERAPIST - 08/18/2019 13:11 EST Bathing LTG Grid Goal #1 Activity : Bathing Assist : Supervision or set up Date to Meet : 09/01/2019 EST Goal Status : Initial goal Jere Viramontes STUDENT-OCCUPATIONAL THERAPIST - 08/18/2019 13:11 EST Dressing, Lower Body LTG Grid Goal #1 Activity : Dressing, Lower Body Assist : Supervision or set up Date to Meet : 09/01/2019 EST Goal Status : Initial goal Jere Viramontes STUDENT-OCCUPATIONAL THERAPIST - 08/18/2019 13:11 EST Toilet Transfer LTG Grid Goal #1 Activity : Toilet Transfer, Ambulatory Assist : Supervision or set up Date to Meet : 09/01/2019 EST Jere Viramontes STUDENT-OCCUPATIONAL THERAPIST - 08/18/2019 13:11 EST Treatment Note Subjective Comment : Pt agreeable to evaluation Patient's Response to Treatment : Pt tolerated eval fair. Low energy due to sedentary routine Jere Viramontes STUDENT-OCCUPATIONAL THERAPIST - 08/18/2019 13:20 EST Additional Objective Information : Pt was supine upon arrival. Pt required SBA supine to sit EOB using leg department assistant. Pt required Mod A x2 sit to stand. Pt ambulated to hallway and back used RWx with Mod A x2. Pt confirmed they had home equipment for their use. Pt required Mod A x2 stand to sit. Pt was left up in chair with family and CL present Assessment : Pt can benefit from OT. Goals were established OTR/L has reviewed and agrees with documentation YEIMI WALKER OTR/L - 08/18/2019 13:33 EST Plan for Treatment : See goals Jere Viramontes STUDENT-OCCUPATIONAL THERAPIST - 08/18/2019 13:20 EST Pain Assessment Pain Scaled Used : 0-10 Pain scale Pain Score Pre-Intervention : 0 Jere Viramontes STUDENT-OCCUPATIONAL THERAPIST - 08/18/2019 13:11 EST Image 1 - Images currently included in the form version of this document have not been included in the text rendition version of the form. Anticipated Discharge Needs, OT/PT Anticipated Discharge to : Unit, rehabilitation YEIMI WALKER OTR/L - 08/18/2019 13:33 EST [place] OT Charges OT Ther Activities Ea 15 Min : 1 OT Eval Low Complexity : 1 Jere Viramontes STUDENT-OCCUPATIONAL THERAPIST - 08/18/2019 13:11 EST Electronically signed by [facility] Conversion [place] Captain Cerner at 11/18/2022 9:30 AM CDT documented in this encounter Plan of Treatment Not on file documented as of this encounter Visit Diagnoses Not on filedocumented in this encounter Care Teams Service Desk Manager Relationship Specialty Start Date End Date Alfredo Aguiar MD [address] [place] [id number] PCP - General Adolescent Medicine 10/16/22 10/19/22 Alfredo Aguiar MD [address] [place] [address] PCP - General Adolescent Medicine 10/20/22 documented as of this encounter
--- OUTSIDE RECORDS SUMMARY | 2025-01-23 15:55 | XMS_ITS | Encounter Summary ---
Author Organization [employer] Address [address] [facility] [place] [address] Care Team Providers Care Life Sciences Manager Name Role Phone Alfredo Lackey MD Primary Care Provider + [phone] Alfredo Lackey MD Primary Care Provider + [phone] Encounter Details Date Type Department Care Team (Late st Contact Info) Description 05/20/2019 Transcribed Document [address] [id number] Lion Allison MD [address] [place] [address] Social History Tobacco Use Types Packs/Day Years Used Date Smoking Tobacco: Never Assessed Sex and Gender Information Value Date Recorded Sex Assigned at Not on file Legal Sex Male 5:45 PM CDT Gender Identity Not on file Sexual Orientation Not on file documented as of this encounter Miscellaneous Notes * Cerner Conversion Note - Lion Allison MD - 05/20/2019 12:24 PM EDT Patient: LORA JAIN JR Age: 78 Years Sex: Male : 1940 Primary Care Provider ALFREDO LACKEY (REF)[facility] History of Present Illness painful TKA Vital Signs HR: 75(Monitored) RR: 16 BP: 125/70 SpO2: 100% Oxygen Settings (Last) Oxygen Therapy Mode: Room air (05/20/19 10:39:00) Physical Exam infected TKA Assessment/Plan explant/spacer TKA Infection and inflammatory reaction due to internal left knee prosthesis, initial encounter, Infection and inflammatory reaction due to internal left knee prosthesis, initial encounter Orders: ceFAZolin, 2 Gram, IV Piggyback, Inj, PREOP, infuse over 30 Minute(s), Routine, Start 05/20/19 10:22:00 EDT, 100 mL/Hr, Indication: Surgical Prophylaxis ondansetron, 4 mg, IV Push, Inj, 1-Time, Routine, Start 05/20/19 11:00:00 EDT, Stop 05/20/19 11:00:00 EDT ropivacaine 24.6 mL + EPINEPHrine 0.25 mg + cloNIDine 40 mcg + Sodium Chloride 0.9% intravenous gina, Miscellaneous, 1-Time, infuse over 1 Hour(s), Stop 05/20/19 11:00:00 EDT, Start 05/20/19 11:00:00 EDT tranexamic acid 1,000 mg + syringe 1 Each + Sodium Chloride 0.9% intravenous solution 15 mL, IV Push, 1-Time, Administer over 10 Minute(s), Start 05/20/19 11:00:00 EDT, Stop 05/20/19 11:00:00 EDT, 150 mL/Hr tranexamic acid 2,000 mg + sodium chloride 5 mL + syringe 1 Each, IV Push, 1-Time, Administer over 20 Minute(s), Start 05/20/19 11:00:00 EDT, Stop 05/20/19 11:00:00 EDT, 75 mL/Hr Admit to Inpatient Antiembolic Hose DVT VTE Prophylaxis Education Nasal Decolonization Swab Resuscitation Status Sequential Compression Device VTE Prophylaxis - Medical Sequential Compression Device Start: 05/20/19 10:22:00 EDT, Bilateral, Length: Knee High, Continuous Order (LION ALLISON) Problem List/Past Medical History Ongoing Anemia Arthritis Asthma Bundle branch block, right [...] syndrome (occasional) Skin cancer Sleep apnea (cpap) Historical No qualifying data Procedure/Surgical History left total knee (05/2018), right hand trigger finger repair (2017), hernia repair with mesh left inguinal (2011), lap alexis (2010), left knee scope, meniscus repair (2009), prostatectomy (01/18/2008), skin cancer removal (nose) (2003), ESS, septal surgery (2002), appendectomy (1972), repair of left wrist/hand (ORIF) (1964), repair of left ankle (I&D, stitches) (1951). Home Medications (7) Active bisoprolol 5 mg, Oral, Daily metFORMIN 1,000 mg, Oral, BID NovoLOG Mix 70/30 FlexPen 32 Units, SubCutaneous, AC Breakfast NovoLOG Mix 70/30 FlexPen 18 Units, SubCutaneous, AC Dinner omeprazole 20 mg, Oral, At Bedtime Spiriva Respimat 2.5 mcg/inh inhalation aerosol 2 Puff, Inhalation, Daily Viibryd 40 mg, Oral, At Bedtime Allergies No Known Allergies Social History Alcohol Alcohol Use History Yes. Alcohol Use Frequency Rarely. Substance Abuse Drug Use Hx: No. Use in Last 12 Months: No. Tobacco Never (less than 100 in lifetime) Smoking Status. Never Smokeless Tobacco Status. Second Hand Smoke Exposure: Yes. Lab Results Test Name Test Result Date/Time Device Comment 1 Notified RBV 05/20/2019 10:29 EDT Glucose POC2 319 mg/dL (High) 05/20/2019 10:29 EDT ABO/Rh Repeat O POS 05/20/2019 10:43 EDT Additional Documentation Code Status Start: 05/20/19 10:22:00 EDT, Full Code, Continuous Order documented in this encounter Plan of Treatment Not on file documented as of this encounter Visit Diagnoses Not on filedocumented in this encounter Care Teams Life Sciences Manager Relationship Specialty Start Date End Date Alfredo Lackey MD [address] [place] [address] PCP - General Adolescent Medicine 10/16/22 10/19/22 Alfredo Lackey MD [address] [place] [address] PCP - General Adolescent Medicine 10/20/22 documented as of this encounter
--- OUTSIDE RECORDS SUMMARY | 2025-01-23 15:55 | XMS_ITS | Encounter Summary ---
Author Organization [employer] Address [address] [place] [address] Care Team Providers Care Wrestling Coach Name Role Phone Alfredo Aguiar MD Primary Care Provider + [phone] Alfredo Aguiar MD Primary Care Provider + [phone] Encounter Details Date Type Department Care Team (Late st Contact Info) Description 08/17/2019 Transcribed Document [facility] Family Medicine [facility] [place] [address] ProviderEryn MD [address] [place] [id number] Social History Tobacco Use Types Packs/Day Years Used Date Smoking Tobacco: Never Assessed Sex and Gender Information Value Date Recorded Sex Assigned at Not on file Legal Sex Male 5:45 PM CDT Gender Identity Not on file Sexual Orientation Not on file documented as of this encounter Miscellaneous Notes * Cerner Conversion Note - Eryn Arcos MD - 08/17/2019 11:25 AM DEPILATORY PAINTER Procedural Documentation Entered On: 08/17/2019 11:48 EST Performed On: 08/17/2019 11:25 EST by CASIE BAE RN Procedure Documentation Procedure to be Performed : left femoral /sciatica Time Out Pause Time : 08/17/2019 11:37 EST All Activity Suspended : Yes Team Verbally Confirms Information : Correct patient identity, Correct side and site are marked, Agreement on the procedure to be done, Correct patient position, Relevant images/results properly labeled/appropriately displayed, Confirm the skin prep has dried, Confirm prosthesis/implant/device is present, Performed in location of procedure after prepped/draped, Performed before each procedure if multiple procedures Procedure Performed : left fem/sciaitca- 1140-right side lying- prep- drape- premeds- ultrasound and nerve stim guided injection per Dr. Cornejo- starting in left post thigh- yani well. 1144- turned supine- prep-drape- ultrasound and nerve stim guided injection of femoral area- Proper Use of Sterile Apparel per Policy : Yes Procedure Case Attendee : MARY CORNEJO MD-ANS Procedure Case Attendee Role : Anesthesiologist Procedure Case Attendee Role 2 : leather stripping machine operator Case Attendee 2 : EVAN Drake RN Procedure Case Attendee Role 3 : leather stripping machine operator Case Attendee 3 : CASIE BAE RN BOWLING, CHERYL A, RN - 08/17/2019 11:25 EST Postprocedure Documentation Current Time : 11:54 EST Patient Identifiers : Yes Medication Reconciliation : Yes Discharge Instructions : Not applicable Dressing, Procedure : N/A Discharged/Transferred To : Other: OR Hand off Report Received From : CASIE BAE RN Handoff Method : Bedside/Face to face, Paper hand-off CASIE BAE RN - 08/17/2019 11:54 EST Josselyn Level I Post Anesthesia Assessment Josselyn I Activity Status : Moves 4 extremities voluntarily or on command Josselyn l Respiratory Component : Able to deep breathe and cough freely Josselyn I Circulation Component : BP 20% of preanesthetic level Josselyn I Consciousness : Fully awake Josselyn l Oxygen Saturation : Can maintain > 92% on room air Josselyn l Score : 10 CASIE BAE RN - 08/17/2019 11:54 EST Josselyn Level II Assessment Josselyn ll Pain : Pain free CASIE BAE RN - 08/17/2019 11:54 EST Vital Measurements Heart Rate, Apical : 55 bpm (LOW) Pulse Rhythm : Regular Respiratory Rate : 10 Breaths/Min (LOW) Blood Pressure Location : Arm, left upper Blood Pressure Source : Non-Invasive BP Device Blood Pressure Position : Supine Systolic Blood Pressure : 127 mmHg Diastolic Blood Pressure : 74 mmHg Oxygen Saturation : 100 % Oxygen Therapy Mode : Nasal cannula Oxygen Flow Rate : 3 Liter/Min CASIE BAE RN - 08/17/2019 11:54 EST Electronically signed by [facility] Conversion Manager Billing Cerner at 11/18/2022 9:27 AM CDT documented in this encounter Plan of Treatment Not on file documented as of this encounter Visit Diagnoses Not on filedocumented in this encounter Care Teams Wrestling Coach Relationship Specialty Start Date End Date Alfredo Aguiar MD [address] [place] [id number] PCP - General Adolescent Medicine 10/16/22 10/19/22 Alfredo Aguiar MD [address] [place] [address] PCP - General Adolescent Medicine 10/20/22 documented as of this encounter
--- OUTSIDE RECORDS SUMMARY | 2025-01-23 15:55 | XMS_ITS | Encounter Summary ---
Author Organization [employer] Address [address] [place] [address] Care Team Providers Care Booking Officer Name Role Phone Alfredo Lackey MD Primary Care Provider + [phone] Alfredo Lackey MD Primary Care Provider + [phone] Encounter Details Date Type Department Care Team (Late st Contact Info) Description 08/18/2019 Transcribed Document [facility] [place] [facility] [place] [address] ProviderEryn MD [address] [place] [id number] Social History Tobacco Use Types Packs/Day Years Used Date Smoking Tobacco: Never Assessed Sex and Gender Information Value Date Recorded Sex Assigned at Not on file Legal Sex Male 5:45 PM CDT Gender Identity Not on file Sexual Orientation Not on file documented as of this encounter Miscellaneous Notes * Cerner Conversion Note - Eryn Arcos MD - 08/18/2019 6:09 AM STORE WAREHOUSE ASSOCIATE Patient: LORA JAIN JR Age: 78 Years Sex: Male : 1940 Admit Date 08/17/2019 07:12 Discharge Date 08/20/2019 Primary Care Provider ALFREDO LACKEY (REF)MD-[facility] Discharge Diagnosis Status post revision of total knee replacement 08/18/2019 Z96.659 ICD-10-CM Procedures SN - Proc - Procedure: Knee Total Joint Revision (08/17/19 14:16:57) Reason for Hospitalization Mr. Jain is a very pleasant 78-year-old gentleman, in [...] in detail, and he voiced his agreement. Hospital Course Patient was taken to the operating room on date of admission where they underwent the aforementioned procedure without complication. They were then transferred to the floor for postoperative care including PT & OT, consultation of hospitalist for medical care, and discharge planning by nurse navigator/case management. Infectious disease was consulted and recommended Rocephin 2 g Vital Signs T: 36.8 ??C TMIN: 36.4 ??C TMAX: 36.9 ??C HR: 74(Monitored) RR: 16 BP: 98/52 SpO2: 97% Oxygen Settings (Last) Oxygen Therapy Mode: Room air (08/17/19 21:20:00) Oxygen Flow Rate: 8 Liter/Min (08/17/19 17:07:00) Physical Exam The dressing is clean dry secure. The operative extremity is neurovascularly intact. Compartments are soft. Intra-articular Hemovac drain has been removed and incisional VAC in place Discharge Disposition [facility] before transfer to home for home health Discharge Follow Up WENDIE PENG - 11:45 AM In 3 weeks with Chris Ag Discharge Medications (14) Active amoxicillin 875 mg oral tablet 875 mg = 1 Tab, Oral, BID until further instructed by Dr Peng aspirin 81 mg oral tablet 81 mg = 1 Tab, Oral, BID bisoprolol 5 mg, Oral, Daily Colace 100 mg oral capsule 100 mg = 1 Cap, PRN, Oral, BID ferrous gluconate 324 mg (37.5 mg elemental iron) oral tablet 324 mg = 1 Tab, Oral, Daily metFORMIN 1,000 mg, Oral, BID Neurontin 300 mg oral capsule 300 mg = 1 Cap, PRN, Oral, At Bedtime NovoLOG Mix 70/30 FlexPen 20 Units, SubCutaneous, AC Breakfast NovoLOG Mix 70/30 FlexPen 6 Units, SubCutaneous, AC Dinner omeprazole 20 mg, Oral, At Bedtime Percocet 5/325 oral tablet 1 Tab, PRN, Oral, Q4H probiotic acidophilus 1 caps, Oral, BID Spiriva Respimat 2.5 mcg/inh inhalation aerosol 2 Puff, Inhalation, Daily Viibryd 40 mg, Oral, At Bedtime Code Status Start: 08/17/19 18:35:00 EST, Full Code, Continuous Order Condition on Discharge Stable Consulting Physicians JUVENAL DE JESUS MD-ANS WORLEY, CYNTHIA LEE, MD-ANS DOODNAUTH, DAVANAND C, MD-INT WENDIE PENG MD-INF (Infectious disease) - s/p replant TKA Current Diet Order Diet, Adult - Ordered -- Start: 08/17/19 18:48:00 EST, 60 gm carbs:[id number] randa, Isolation: Standard Precautions, Instructions: Diabetic Diet Patient Discharge Summary Orders Patient is weightbearing as tolerated. Patient should transition from a walker to a cane at the discretion of physical therapy. However the patient should minimize ambulation, and focus on copious ice and elevation to reduce swelling. The range of motion goal for first follow-up should be a minimum of 0-90??. Bilateral thigh-high LEON hose should be worn 21+ hours per day for 6 weeks for DVT prophylaxis. Chemoprophylaxis for DVT (see medlist)times [address] weeks[address] Dressings remain in place for 7-10 days, during which time the patient may shower. This provided the margins of the dressing are intact. Dressings then can be removed and incision left open to air. Any wound drainage should be reported to the orthopedic office.Continuous use of cryotherapy as needed for pain and swelling. Recommended as one hour of every 3. Pending Labs Collected Pathology Tissue Request 08/17/19 15:39:00 EST, Collected, RT - Routine, 08/17/19 15:39:00 EST, Ashanti Bolaños RN, Specimen Type: AP Specimen, Specimen Desc: EXPLANTED HARDWARE LEFT KNEE, T84.54XA, Pre-Op Dx: T84.54XA, Print Label, , Print Label By Order Location,... In-Lab Culture AFB and Stain Specimen Type: Tissue, From: Knee L, Routine collect, Collected, 08/17/19 14:50:00 EST, 1-Time, Stop: 08/17/19 14:50:00 EST, Nurse Collect, Specimen Desc: #4 LEFT KNEE SYNOVIUM, Print Label By Order Location Culture Anaerobic Specimen Type: Tissue, From: Knee L, Routine collect, Collected, 08/17/19 14:50:00 EST, 1-Time, Stop: 08/17/19 14:50:00 EST, Nurse Collect, Specimen Desc: #4 LEFT KNEE SYNOVIUM, Print Label By Order Location Culture AFB and Stain Specimen Type: Tissue, From: Knee L, Routine collect, Collected, 08/17/19 14:44:00 EST, 1-Time, Stop: 08/17/19 14:44:00 EST, Nurse Collect, Specimen Desc: #3 LEFT KNEE SYNOVIUM, Print Label By Order Location Culture Anaerobic Specimen Type: Tissue, From: Knee L, Routine collect, Collected, 08/17/19 14:44:00 EST, 1-Time, Stop: 08/17/19 14:44:00 EST, Nurse Collect, Specimen Desc: #3 LEFT KNEE SYNOVIUM, Print Label By Order Location Culture AFB and Stain Specimen Type: Tissue, From: Knee L, Routine collect, Collected, 08/17/19 14:40:00 EST, 1-Time, Stop: 08/17/19 14:40:00 EST, Nurse Collect, Specimen Desc: #2 LEFT KNEE SYNOVIUM, Print Label By Order Location Culture Anaerobic Specimen Type: Tissue, From: Knee L, Routine collect, Collected, 08/17/19 14:41:00 EST, 1-Time, Stop: 08/17/19 14:41:00 EST, Nurse Collect, Specimen Desc: #2 LEFT KNEE SYNOVIUM, Print Label By Order Location Culture AFB and Stain Specimen Type: Tissue, From: Knee L, Routine collect, Collected, 08/17/19 14:38:00 EST, 1-Time, Stop: 08/17/19 14:38:00 EST, Nurse Collect, Specimen Desc: #1 LEFT KNEE SYNOVIUM, Print Label By Order Location Culture Anaerobic Specimen Type: Tissue, From: Knee L, Routine collect, Collected, 08/17/19 14:38:00 EST, 1-Time, Stop: 08/17/19 14:38:00 EST, Nurse Collect, Specimen Desc: #1 LEFT KNEE SYNOVIUM, Print Label By Order Location Culture AFB and Stain Specimen Type: Surgical Swab, From: Knee L, Routine collect, Collected, 08/17/19 14:31:00 EST, 1-Time, Stop: 08/17/19 14:31:00 EST, Nurse Collect, Specimen Desc: LEFT KNEE JOINT, Print Label By Order Location Culture Anaerobic Specimen Type: Surgical Swab, From: Knee L, Routine collect, Collected, 08/17/19 14:31:00 EST, 1-Time, Stop: 08/17/19 14:31:00 EST, Nurse Collect, Specimen Desc: LEFT KNEE JOINT, Print Label By Order Location Ordered BMP Basic Metabolic Panel Specimen Type: Blood, AM Draw collect, 08/18/19 4:00:00 EST, Daily, For: 3 Day(s), Stop: 08/20/19 4:00:00 EST, Lab Collect CBC w/ Auto Diff Specimen Type: Blood, AM Draw collect, 08/18/19 4:00:00 EST, Daily, For: 3 Day(s), Stop: 08/20/19 4:00:00 EST, Lab Collect Stain Culture Tissue and Stain Specimen Type: Tissue, From: Knee L, RT collect, Collected, 08/17/19 18:09:00 EST, 1-Time, Stop: 08/17/19 18:09:00 EST, Lab Collect:, Micro Spec, Media label Y/N, [id number] Culture Fungus Specimen Type: Tissue, From: Knee L, Routine collect, Collected, 08/17/19 14:50:00 EST, 1-Time, Stop: 08/17/19 14:50:00 EST, Nurse Collect, Specimen Desc: #4 LEFT KNEE SYNOVIUM, Print Label By Order Location Culture Tissue and Stain Specimen Type: Tissue, From: Knee L, Routine collect, Collected, 08/17/19 14:50:00 EST, 1-Time, Stop: 08/17/19 14:50:00 EST, Nurse Collect, Specimen Desc: #4 LEFT KNEE SYNOVIUM, Print Label By Order Location Culture Fungus Specimen Type: Tissue, From: Knee L, Routine collect, Collected, 08/17/19 14:44:00 EST, 1-Time, Stop: 08/17/19 14:44:00 EST, Nurse Collect, Specimen Desc: #3 LEFT KNEE SYNOVIUM, Print Label By Order Location Culture Tissue and Stain Specimen Type: Tissue, From: Knee L, Routine collect, Collected, 08/17/19 14:44:00 EST, 1-Time, Stop: 08/17/19 14:44:00 EST, Nurse Collect, Specimen Desc: #3 LEFT KNEE SYNOVIUM, Print Label By Order Location Culture Fungus Specimen Type: Tissue, From: Knee L, Routine collect, Collected, 08/17/19 14:41:00 EST, 1-Time, Stop: 08/17/19 14:41:00 EST, Nurse Collect, Specimen Desc: #2 LEFT KNEE SYNOVIUM, Print Label By Order Location Culture Tissue and Stain Specimen Type: Tissue, From: Knee L, Routine collect, Collected, 08/17/19 14:38:00 EST, 1-Time, Stop: 08/17/19 14:38:00 EST, Nurse Collect, Specimen Desc: #1 LEFT KNEE SYNOVIUM, Print Label By Order Location Culture Fungus Specimen Type: Tissue, From: Knee L, Routine collect, Collected, 08/17/19 14:38:00 EST, 1-Time, Stop: 08/17/19 14:38:00 EST, Nurse Collect, Specimen Desc: #1 LEFT KNEE SYNOVIUM, Print Label By Order Location Culture Fungus Specimen Type: Surgical Swab, From: Knee L, Routine collect, Collected, 08/17/19 14:31:00 EST, 1-Time, Stop: 08/17/19 14:31:00 EST, Nurse Collect, Specimen Desc: LEFT KNEE JOINT, Print Label By Order Location Culture Wound and Stain Specimen Type: Surgical Swab, From: Knee L, Routine collect, Collected, 08/17/19 14:31:00 EST, 1-Time, Stop: 08/17/19 14:31:00 EST, Nurse Collect, Specimen Desc: LEFT KNEE JOINT, Print Label By Order Location Time Spent on Discharge 25 minutes documented in this encounter Plan of Treatment Not on file documented as of this encounter Visit Diagnoses Not on filedocumented in this encounter Care Teams Booking Officer Relationship Specialty Start Date End Date Alfredo Lackey MD [address] [place] [address] PCP - General Adolescent Medicine 10/16/22 10/19/22 Alfredo Lackey MD [address] [place] [address] PCP - General Adolescent Medicine 10/20/22 documented as of this encounter
--- OUTSIDE RECORDS SUMMARY | 2025-01-23 15:55 | XMS_ITS | Encounter Summary ---
Author Organization [employer] Address [address] [place] [address] Care Team Providers Care Aerodynamicist Name Role Phone Alfredo Aguiar MD Primary Care Provider + [phone] Alfredo Aguiar MD Primary Care Provider + [phone] Encounter Details Date Type Department Care Team (Late st Contact Info) Description 05/23/2019 Transcribed Document [address] [id number] Massimo Butterfield MD [address] [place], [place] [id number] Social History Tobacco Use Types Packs/Day Years Used Date Smoking Tobacco: Never Assessed Sex and Gender Information Value Date Recorded Sex Assigned at Not on file Legal Sex Male 5:45 PM CDT Gender Identity Not on file Sexual Orientation Not on file documented as of this encounter Miscellaneous Notes * Cerner Conversion Note - Massimo Butterfield MD - 05/23/2019 9:42 AM EDT Patient: LORA JAIN JR Age: 78 years Sex: Male : 1940 Associated Diagnoses: None Author: OMKAR ALMANZAR APRN-FAM 05/23/19 cc: medical management awaiting left total knee revision arthroplasty S: not too bad No fevers, +chills No shortness of breath, +productive cough No Chest pain, palpitations, syncope No nausea, vomiting, +BM yesterday No hematuria, dysuria + post-op knee pain HPI: Patient is an 78 yo male admitted to [facility] for a left total knee revision arthroplasty. [...] with left knee infection. 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 - 03/24/2018 13:52 - HERMAN LARSEN RN Allergies (1) Active Reaction No Known Allergies None Documented Home Medications (11) Active bisoprolol 5 mg, Oral, Daily Colace 100 mg oral capsule 100 mg = 1 Cap, PRN, Oral, BID Eliquis 2.5 mg oral tablet 2.5 mg = 1 Tab, Oral, BID ferrous sulfate 325 mg (65 mg elemental iron) oral delayed release tablet 325 mg = 1 Tab, Oral, Daily metFORMIN 1,000 mg, Oral, BID NovoLOG Mix 70/30 FlexPen 32 Units, SubCutaneous, AC Breakfast NovoLOG Mix 70/30 FlexPen 18 Units, SubCutaneous, AC Dinner omeprazole 20 mg, Oral, At Bedtime Percocet 5/325 oral tablet 1 Tab, PRN, Oral, Q4H Spiriva Respimat 2.5 mcg/inh inhalation aerosol 2 Puff, Inhalation, Daily Viibryd 40 mg, Oral, At Bedtime Exam: Vitals Signs (last 24 hrs) Last Charted Minimum Maximum Temp 98.1 (MAY 23 06:00) 97.9 (MAY 23 02:34) 98.6 (MAY 22 14:56) Mon HR 95 (MAY 23 06:00) 72 (MAY 22 14:56) 95 (MAY 23 06:00) Resp Rate 18 (MAY 23 06:00) 18 (MAY 23 06:00) 20 (MAY 22 14:56) SBP 118 (MAY 23 06:00) 94 (MAY 22 19:02) H 149 (MAY 23 02:34) DBP 88 (MAY 23 06:00) L 47 (MAY 22 18:34) 88 (MAY 23 06:00) MAP 60 (MAY 22 18:34) 60 (MAY 22 18:34) 60 (MAY 22 18:34) SpO2 L 92 (MAY 23 06:00) L 92 (MAY 23 06:00) 96 (MAY 22 14:56) PE: elderly white male, pleasant, cooperative, good historian PEERL, pink conjunctiva, moist mucous membranes, no thyromegaly or cervical lymphadenopathy =expansion b/l , no wheezing or rhonchi non-displaced PMI, S1S2 ABD is soft non-tender, non-distended, norm bowel sounds skin warm, dry without rashes ext: trace low ext edema, no calf tenderness neuro: cn 2-12 intact; no gross motor -sensory deficits psych: appropriate affect and mood Data: MAY 23 03:00 L 133 L 98 H 23 / H 350 4.1 24 1.20 \ MAY 23 03:00 \ L 10.3 / H 10.5 H 515 / L 30.9 \ Pre operative CBC, BMP, coags reviewed- Platelets 581, BS 261, A1C 10.7 Assessment: s/p left total knee revision with abx spacer per Dr. Allison ABL anemia s/p 2 u PRBCs hyponatremia DMII- poor control A1C 10.7 preop Hx LUZ ELENA- has CPAP Hx RLS Hx prostate cancer- prostate removed Hx anemia Hx Gerd Plan: likely needs rehab placement- requesting [facility] ID following- anticipate PICC line and IV abx increased 70/30 and lunchtime lispro Monitor HTN; add PRN's, hold parameters bowel regimen incentive spirometer- ass incentive spirometer PT/OT DVT prophylaxis noted Pain [...] plan made in conjunction with MD Jennifer documented in this encounter Plan of Treatment Not on file documented as of this encounter Visit Diagnoses Not on filedocumented in this encounter Care Teams Aerodynamicist Relationship Specialty Start Date End Date Alfredo Aguiar MD [address] [place] [address] PCP - General Adolescent Medicine 10/16/22 10/19/22 Alfredo Aguiar MD [address] [place] [address] PCP - General Adolescent Medicine 10/20/22 documented as of this encounter
--- OUTSIDE RECORDS SUMMARY | 2025-01-23 15:55 | XMS_ITS | Encounter Summary ---
Author Organization [employer] Address [address] [place] [address] Care Team Providers Care Material Damage Adjuster Name Role Phone Alfredo Aguiar MD Primary Care Provider + [phone] Alfredo Aguiar MD Primary Care Provider + [phone] Encounter Details Date Type Department Care Team (Late st Contact Info) Description 05/20/2019 Transcribed Document [facility] [place] [facility] [place] [address] ProviderEryn MD [address] [place] [address] Social History Tobacco Use Types Packs/Day Years Used Date Smoking Tobacco: Never Assessed Sex and Gender Information Value Date Recorded Sex Assigned at Not on file Legal Sex Male 5:45 PM CDT Gender Identity Not on file Sexual Orientation Not on file documented as of this encounter Miscellaneous Notes * Cerner Conversion Note - Eryn Arcos MD - 05/20/2019 1:[address] [facility] Main OR Preop Summary Primary Physician: LION DAVIS MD-ORT Finalized Date/Time: 05/20/19 14:16:08 Pt. Name: LORA JAIN JR/Sex: 1940 Male Med Rec #: [id number] Physician: LION DAVIS MD-ORT Financial #: [id number] Pt. Type: I Room/Bed: ASA/2 Admit/Disch: 05/20/19 06:54:00 - Institution: [facility] PreOp Case Times Entry 1 In Preop 05/20/19 10:10:00 Ready for Holding n/a Room Patient Ready for 05/20/19 11:35:00 Surgery Patient Out of Preop 05/20/19 13:41:00 Patient Out of n/a Holding Room Last Modified By: EVAN Drake RN 05/20/19 14:16:06 [facility] PreOp Case Times Audit 05/20/19 14:16:06 Automated Cutting Machine Operator: REISNERK Modifier: WILSONDL <+> 1 Patient Out of Preop 05/20/19 11:35:30 Automated Cutting Machine Operator: REISNERK Modifier: REISNERK <+> 1 Patient Ready for Surgery Finalized By: EVAN Drake, RN Document Signatures Signed By: EVAN Drake RN 05/20/19 14:16 Electronically signed by [facility] Conversion Advertising Sales Consultant Cerner at 11/18/2022 9:37 AM CDT documented in this encounter Plan of Treatment Not on file documented as of this encounter Visit Diagnoses Not on filedocumented in this encounter Care Teams Material Damage Adjuster Relationship Specialty Start Date End Date Alfredo Aguiar MD [address] [place] [address] PCP - General Adolescent Medicine 10/16/22 10/19/22 Alfredo Aguiar MD [address] [place] [address] PCP - General Adolescent Medicine 10/20/22 documented as of this encounter
--- OUTSIDE RECORDS SUMMARY | 2025-01-23 15:55 | XMS_ITS | Encounter Summary ---
Author Organization [employer] Address [address] [place] [address] Care Team Providers Care Driller Brake Lining Name Role Phone Alfredo Aguiar MD Primary Care Provider + [phone] Alfredo Aguiar MD Primary Care Provider + [phone] Encounter Details Date Type Department Care Team (Late st Contact Info) Description 08/17/2019 Transcribed Document [facility] [place] [facility] [place] [address] ProviderEryn MD [address] [place] [id number] Social History Tobacco Use Types Packs/Day Years Used Date Smoking Tobacco: Never Assessed Sex and Gender Information Value Date Recorded Sex Assigned at Not on file Legal Sex Male 5:45 PM CDT Gender Identity Not on file Sexual Orientation Not on file documented as of this encounter Miscellaneous Notes * Cerner Conversion Note - Eryn ProviderMD - 08/17/2019 2:00 AM SUPERVISOR MAJOR APPLIANCE ASSEMBLY Spiritual Care Assessment Entered On: 08/17/2019 11:57 EST Performed On: 08/17/2019 11:15 EST by ART KENNEDY [facility] [employer] [facility] Comment/Summary Points : Provided pre-surgery visit and prayer. ART KENNEDY - 08/17/2019 11:56 EST Spiritual Assessment Spirital Assessment Comment/Summary Report : SPIRITUAL ASSESSMENT COMMENT/SUMMARY No qualifying data available. ART KENNEDY - 08/17/2019 11:56 EST documented in this encounter Plan of Treatment Not on file documented as of this encounter Visit Diagnoses Not on filedocumented in this encounter Care Teams Driller Brake Lining Relationship Specialty Start Date End Date Alfredo Aguiar MD [address] [place] [address] PCP - General Adolescent Medicine 10/16/22 10/19/22 Alfredo Aguiar MD [address] [place] [address] PCP - General Adolescent Medicine 10/20/22 documented as of this encounter
--- OUTSIDE RECORDS SUMMARY | 2025-01-23 15:55 | XMS_ITS | Encounter Summary ---
Author Organization [facility] [employer] Address [address] [place] [address] Care Team Providers Care Dock Attendant Name Role Phone Alfredo Aguiar MD Primary Care Provider + [phone] Alfredo Aguiar MD Primary Care Provider + [phone] Encounter Details Date Type Department Care Team (Late st Contact Info) Description 08/17/2019 Transcribed Document [facility] [place] [facility] [place] [address] ProviderEryn MD [address] [place] [address] Social History Tobacco Use Types Packs/Day Years Used Date Smoking Tobacco: Never Assessed Sex and Gender Information Value Date Recorded Sex Assigned at Not on file Legal Sex Male 5:45 PM CDT Gender Identity Not on file Sexual Orientation Not on file documented as of this encounter Miscellaneous Notes * Cerner Conversion Note - Eryn ProviderMD - 08/17/2019 11:49 AM BEHAVIORAL SCIENCES INSTRUCTOR Event Note Entered On: 08/17/2019 11:50 EST Performed On: 08/17/2019 11:49 EST by CASIE BAE RN Event Note Event Date/Time : 08/17/2019 11:00 EST Description of Event : notified Dr. Arango office of arrival for SX. - will be followed by ID as an inpt. CASIE BAE RN - 08/17/2019 11:49 EST documented in this encounter Plan of Treatment Not on file documented as of this encounter Visit Diagnoses Not on filedocumented in this encounter Care Teams Dock Attendant Relationship Specialty Start Date End Date Alfredo Aguiar MD [address] [place] [address] PCP - General Adolescent Medicine 10/16/22 10/19/22 Alfredo Aguiar MD [address] [place] [address] PCP - General Adolescent Medicine 10/20/22 documented as of this encounter
--- OUTSIDE RECORDS SUMMARY | 2025-01-23 15:55 | XMS_ITS | Encounter Summary ---
Author Organization [employer] Address [address] [facility] [place] [address] Care Team Providers Care Casino Runner Name Role Phone Alfredo Aguiar MD Primary Care Provider + [phone] Alfredo Aguiar MD Primary Care Provider + [phone] Encounter Details Date Type Department Care Team (Late st Contact Info) Description 05/23/2019 Transcribed Document [facility] [place] [facility] [place] [address] ProviderEryn MD [address] [place] [id number] Social History Tobacco Use Types Packs/Day Years Used Date Smoking Tobacco: Never Assessed Sex and Gender Information Value Date Recorded Sex Assigned at Not on file Legal Sex Male 5:45 PM CDT Gender Identity Not on file Sexual Orientation Not on file documented as of this encounter Miscellaneous Notes * Cerner Conversion Note - Eryn Arcos MD - 05/23/2019 1:16 PM CDT On Going Discharge Planning Entered On: 05/23/2019 13:23 EDT Performed On: 05/23/2019 13:16 EDT by JUANY HERNANDEZ RN-Cloth CarrierPharmacoepidemiologist Progress Note Discharge Arrangements : Patient Post-Acute Information Patient Name: LORA JAIN JR Gender: Male : 36 Age: 78 Years [place] Referral(s): Service: Organization: Business Address: Phone Number: [facility] [address] [place], [address] Discharge Options Discussed with Patient : Short term rehabilitation Barriers to Discharge Unresolved : All resolved Designation of Choice Signed : Yes Patient Offered Choice/Affiliations Explained : Yes List/Info Provided Pt/Fam/Support Person : long-term facilities Were Referrals Sent to Post Acute Providers : Yes JUANY HERNANDEZ, RN-Cloth Carrier - 05/23/2019 13:16 EDT Electronically signed by [place] [facility] Conversion Patent Prosecution Paralegal Cerner at 11/18/2022 9:37 AM CDT documented in this encounter Plan of Treatment Not on file documented as of this encounter Visit Diagnoses Not on filedocumented in this encounter Care Teams Casino Runner Relationship Specialty Start Date End Date Alfredo Aguiar MD [address] [place] [address] PCP - General Adolescent Medicine 10/16/22 10/19/22 Alfredo Aguiar MD [address] [place] [address] PCP - General Adolescent Medicine 10/20/22 documented as of this encounter
--- OUTSIDE RECORDS SUMMARY | 2025-01-23 15:55 | XMS_ITS | Referral Summary ---
Author Organization [email or web address] Address [address] [place] [address] Care Team Providers Care Chief Pilot Name Role Phone Alfredo Aguiar MD Primary Care Provider + [phone] Allergies No known active allergies Medications lisinopriL (PRINIVIL,ZEST RIL) 5 MG tabletIndicati ons:hypertensi on Take 5 mg by mouth daily. Active omeprazole (PriLOSEC) 20 MG capsule Take 20 mg by mouth daily. Active aspirin 81 MG chewable tablet Take 81 mg by mouth daily. Active rosuvastatin (CRESTOR) 20 MG tablet Take 20 mg by mouth nightly. Active vilazodone (Viibryd) 40 mg tablet Take 40 mg by mouth daily. Active metFORMIN (GLUCOPHAGE) 500 MG tablet Take 1,000 mg by mouth 2 (two) times daily with breakfast and dinner. Active insulin aspart protamine-insu mirian aspart (NovoLOG Mix 70-30FlexPen U-100) 100 unit/mL (70-30) injection Inject 20 Units subcutaneously 2 (two) times daily with breakfast and dinner. Active insulin aspart protamine-insu mirian aspart (NovoLOG Mix 70-30FlexPen U-100) 100 unit/mL (70-30) injection Inject 5 Units subcutaneously daily with lunch. 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 No 10/15/2022 [address] of Places Lived in the Last Year Not on f ile 10/15/2022 Unstable Housing in the Last Year Not on file 10/15/2022 Interpersonal Safety Answer Date Record ed Family or friends hurt you Not on file 08/21 Family or friends insult you Not on file Family or friends threaten you Not on file 0 08/21/2023 Family or friends scream or curse at you Not on file 08/21/2023 Housing Stability Answer Date Recorded Living situation today Not on file Living situation problems Not on file 2023 Food Insecurity Answer Date Recorded Food run out past 12 months Not on file 08/03 Food did not last past 12 months Not on file 08/21/2023 Employment Answer Date Recorded Help finding and keeping a job Not on file 0 08/21/2023 Family and Community Support Answer Keith e Recorded Help with Day to Day Activities Not on file 08/21/2023 Feeling Lonely or Isolated Not on file 08/21 Educational Attainment Answer Date Devin rded Speak language other than Frisian at home Not on file 08/21/2023 Want help with school or training Not on file 08/21/2023 Depression Answer Date Recorded PHQ-2 Risk Not on file 08/21/2023 Disabilities Answer Date Recorded Difficulty concentrating Not on file 024 Difficulty doing errands alone Not on file 0 08/21/2023 Substance Use Answer Date Recorded Used prescription meds for non-medical reasons N ot on file 08/21/2023 Used illegal drugs past 12 months Not on file 08/21/2023 Sex and Gender Information Value Date Recorded Sex Assigned at Not on file Legal Sex Male 5:45 PM CDT Gender Identity Not on file Sexual Orientation Not on file Last Filed Vital Signs Vital Sign Reading Time Taken Comments Blood Pressure 156/85 10/16/2022 2:35 PM EDT Pulse 93 10/16/2022 2:35 PM EDT Temperature 36.5 C (97.7 F) 10/16/2022 2:35 PM EDT Respiratory Rate 16 10/16/2022 2:35 PM EDT Oxygen Saturation 100% 10/16/2022 2:35 PM EDT Inhaled Oxygen Concentration - - Weight 104.8 kg (231 lb) 10/15/2022 11:01 PM EDT Height 182.9 cm (6') 10/15/2022 11:01 PM EDT Body Mass Index 31.33 10/15/2022 11:01 PM EDT Plan of Treatment Not on file Insurance [place] [id number] MEDICARE PART A B Magnetic Advance Directives For more information, please contact: [phone] * Full Code (Latest Code Status on File) Date Activated Date Inactivated Comments 10/15/2022 10:17 PM 10/16/2022 7:32 PM Care Teams Chief Pilot Relationship Specialty Start Date End Date Alfredo Aguiar MD [address] [place] [address] PCP - General Adolescent Medicine 10/20/22
--- OUTSIDE RECORDS SUMMARY | 2025-01-23 15:55 | XMS_ITS | Encounter Summary ---
Author Organization [employer] Address [address] [place] [address] Care Team Providers Care Lead Level Designer Name Role Phone Alfredo Aguiar MD Primary Care Provider + [phone] Alfredo Aguiar MD Primary Care Provider + [phone] Encounter Details Date Type Department Care Team (Late st Contact Info) Description 08/16/2019 Transcribed Document [facility] [place] Medicine [address] [place] [address] ProviderEryn MD [address] [place], [place] [address] Social History Tobacco Use Types Packs/Day Years Used Date Smoking Tobacco: Never Assessed Sex and Gender Information Value Date Recorded Sex Assigned at Not on file Legal Sex Male 5:45 PM CDT Gender Identity Not on file Sexual Orientation Not on file documented as of this encounter Miscellaneous Notes * Cerner Conversion Note - Eryn ProviderMD - 08/16/2019 1:25 PM CORPORATE TRAFFIC MANAGER UM Authorization Entered On: 08/16/2019 13:26 EST Performed On: 08/16/2019 13:25 EST by JASWANT PALMA, Teacher Music Primary Insurance Authorization Authorization and Policy Numbers : Insurance 1 Health Plan: MEDICARE Policy Number: [id number] Authorization Number: Insurance 2 Health Plan: FOR LIFE Policy Number: [id number] Authorization Number: Insurance Primary Name : Medicare [id number] Authorized Service Begin Date-Primary : 08/17/2019 EST Authorization Comments-Primary : pt scheduled as OUTPT for total knee on 08-17-2019 medicare: NPR Historical Authorization Comments-Primary : No Authorization Comments Found JASWANT PALMA, Teacher Music - 08/16/2019 13:25 EST Electronically signed by [place], [facility] Conversion Director Hydrogen Storage Engineering Cerner at 11/18/2022 9:35 AM CDT documented in this encounter Plan of Treatment Not on file documented as of this encounter Visit Diagnoses Not on filedocumented in this encounter Care Teams Lead Level Designer Relationship Specialty Start Date End Date Alfredo Aguiar MD [address] [place] [address] PCP - General Adolescent Medicine 10/16/22 10/19/22 Alfredo Aguiar MD [address] [place] [address] PCP - General Adolescent Medicine 10/20/22 documented as of this encounter
--- OUTSIDE RECORDS SUMMARY | 2025-01-23 15:55 | XMS_ITS | Encounter Summary ---
Author Organization [employer] Address [address] [place] [address] Care Team Providers Care Registered Nurse Maternal Child Name Role Phone Alfredo Aguiar MD Primary Care Provider + [phone] Alfredo Aguiar MD Primary Care Provider + [phone] Encounter Details Date Type Department Care Team (Late st Contact Info) Description 08/17/2019 Transcribed Document [facility] [place] [address] ProviderEryn MD [address] [place] [id number] Social History Tobacco Use Types Packs/Day Years Used Date Smoking Tobacco: Never Assessed Sex and Gender Information Value Date Recorded Sex Assigned at Not on file Legal Sex Male 5:45 PM CDT Gender Identity Not on file Sexual Orientation Not on file documented as of this encounter Miscellaneous Notes * Cerner Conversion Note - Eryn ProviderMD - 08/17/2019 6:35 PM GROUP LEADER SEMICONDUCTOR PROCESSING Evaluation, Physical Therapy Entered On: 08/18/2019 11:52 EST Performed On: 08/18/2019 11:36 EST by DELMIS ATKINS, NATACHA General Information, PT Visit Type, PT : Initial evaluation Patient Orders : Order Date Order Ordering 08/17/2019 18:36 PT Evaluation and Treatment Ordered By: LION DAVIS MD-ORT 08/17/2019 18:36 PT Treatment Instructions Ordered By: LION ADVIS MD-ORT 08/17/2019 18:36 PT Treatment Instructions Ordered By: LION DAVIS MD-ORT 08/17/2019 18:36 PT Treatment Instructions Ordered By: LION DAVIS MD-ORT 08/17/2019 18:36 PT Treatment Instructions Ordered By: LION DAVIS MD-ORT Active Diagnoses : 08/18/2019 12:00 Presence of unspecified artificial knee joint Therapy Diagnosis, PT : Aftercare following L TKA revision-reimplant Onset of Problem, PT : 08/17/2019 EST Admission Date : 08/17/2019 07:12 Co-treated by, PT : Occupational Therapist Personal Devices : Personal Devices No Devices Recorded Assistive Devices : Assistive Devices No Devices Recorded DELMIS ATKINS, PT - 08/18/2019 11:36 EST General Status Patient Received Status : Up in chair Treatment Start Time : 08/18/2019 10:35 EST Patient Left Status : Up in chair, RN/PCT informed, Family/Visitors at bedside, Communication board completed, All needs met and within reach, Other: SCd's, ICE, Heel prop RN/PCT Informed Comment : ELICEO oliveira and pt consent Treatment End Time : 08/18/2019 11:09 EST Treatment Time : 34 Minute(s) DELMIS ATKINS, PT - 08/18/2019 11:36 EST History and Environment Living Situation, Therapy : Home Patient Lives With : Spouse Persons Assisting Patient at Home : Alone Professional Skilled Services : None Persons Providing Information : Patient, Child/Children Home Equipment Therapy, PT : Walker, Wheelchair Walker : Walker, front wheel Wheelchair : Wheelchair, standard Home Setup : One story Stairs : No DELMIS ATKINS PT - 08/18/2019 11:36 EST Prior Level of Function PT GRID Prior LOF Ambulation, Household : Independent Prior LOF Ambulation, Community : Independent Prior LOF Bed Mobility : Independent Prior LOF Toileting : Independent Prior LOF Transfer : Independent DELMIS ATKINS, PT - 08/18/2019 11:36 EST Upper Extremity Right UE Active ROM : WFL Right UE Strength : WFL Left UE Active ROM : WFL Left UE Strength : WFL DELMIS ATKINS, PT - 08/18/2019 11:36 EST Lower Extremity RLE Active ROM : WFL Right LE Strength : WFL LLE Active ROM : Impaired Left LE Strength : Impaired DELMIS ATKINS PT - 08/18/2019 11:36 EST Left Lower Extremity Range of Motion Knee Flexion (0-140) Knee Extension (0-0) Active : 4 Active Assist : 85 DELMIS ATKINS, PT - 08/18/2019 11:36 EST DELMIS ATKINS, PT - 08/18/2019 11:36 EST Functional Mobility Mobility Grid Sit to Stand : Rehab Minimal assistance Bed to Chair : Rehab Minimal assistance Stand to Sit : Rehab Minimal assistance DELMIS ATKINS, PT - 08/18/2019 11:36 EST Sit to Stand Device : Belt, gait, Walker, front wheel Bed to Chair Device : Belt, gait, Walker, front wheel DELMIS ATKINS, PT - 08/18/2019 11:36 EST Gait Training/Assessment, PT Weight Bearing Status : As tolerated Gait Assistance Level : Assist, maximal Walking Distance : initially pt ambulating with Ade ~20ft but required modA x 2 as he began to fatigue. Very poor quad activation, unable to weight bear through LLE without buckling. Ambulatory Devices : Gait belt, Walker, front wheel Gait Deviations : Yes DELMIS ATKINS, PT - 08/18/2019 11:36 EST Neuromuscular Reeducation, PT Balance Comment : SBA static sitting, CGA static standing with RWx DELMIS ATKINS, PT - 08/18/2019 11:36 EST Neurological/Sensory Overall Sensory Response : Intact Overall Sensory Response Comment : foot drop and numbness LLDELMIS MASON, PT - 08/18/2019 11:36 EST Activity Tolerance, PT Activity Comment : Limited by fatigue and impaired L quad strength/activation DELMIS ATKINS, PT - 08/18/2019 11:36 EST Cognition Assessment, PT Orientation : Oriented x 4 Attention Assessment : Present DELMIS ATKINS PT - 08/18/2019 11:36 EST Edu Topics Physical Therapy Education Grid Bed Mobility Training : Returns demonstration Gait Training : Returns demonstration, Needs reinforcement Role of Physical Therapy : Verbalizes understanding Safety : Verbalizes understanding Therapeutic Exercises : Returns demonstration Transfer Training : Returns demonstration Use of Assistive Device : Returns demonstration DELMIS ATKINS, PT - 08/18/2019 11:36 EST Indication Assesessment, PT Physical Therapy Indicated : Yes PT Problem List : Impaired, endurance tolerance, Impaired, gait, Impaired, joint mobility, Impaired, stair mobility, Impaired, standing balance, Impaired, strength, Impaired, transfers Potential Barriers To Therapy : None evident Rehabilitation Potential : Fair DELMIS ATKINS, PT - 08/18/2019 11:36 EST Plan of Care, PT PT Tx Plan/Goals Established w Patient : Yes PT Frequency Rehab : Daily, twice (bid) PT Duration Rehab : Fourteen days PT Treatments Planned : Gait training, Safety education, Stair training, Therapeutic exercises, Transfer training DELMIS ATKINS, PT - 08/18/2019 11:36 EST Leather Dresser Goals Mobility/Bed Mobility LTG PT Grid Goal #1 Activity : Sit to stand Assist : Supervision or set-up Equipment : Walker, front wheel Date to Meet : 09/01/2019 EST Goal Status : Intial Goal DELMIS ATKINS, PT - 08/18/2019 11:36 EST Transfer LTG Grid Goal #1 Destination : Chair, with arms Type : Stand Pivot Sit Assist : Supervision or set-up Equipment : Walker, front wheel Date to Meet : 09/01/2019 EST Goal Status : Intial Goal DELMIS ATKINS, PT - 08/18/2019 11:36 EST Ambulation LTG Grid Goal #1 Device : Walker, front wheel Distance : 75ft Assist : Supervision or set-up Date to Meet : 09/01/2019 EST Goal Status : Intial Goal DELMIS ATKINS, PT - 08/18/2019 11:36 EST Treatment Note Subjective Comment : Pt agreeable to PT eval and subsequent treatment, denies pain at rest but states pain increases to 4-5/10 during therex. Patient's Response to Treatment : Very poor quad strength/activation. Requires active assist for all quad exercises including LAQ and SLR. Demonstrates fair initial safety during gait but rapidly fatigue, eventually requiring modA x 2 and seated rest break. Reinforced use of heel prop/bone foam for improved extension ROM. Demonstrated appropriate use of heel prop at end of session Additional Objective Information : L knee ROM 4-85 degrees Ade sit-stand with RWx Ade-ModA x2 for gait x 20ft, limited by fatigue, weak quadriceps. Pt then participated in 10 repetitions of seated LAQ, marching in place, and heel slides; supine ankle pumps, quad sets glut sets, SAQ, SLR, heel slides, and hip abduction. . Assessment : Pt demonstrates significantly delayed ambulatory response secondary to L quad weakness and numbness. Pt is motivated but will require significant therapy to continue to progress towards functional goals. Recommend rehab placement based on functional performance and safety. Plan for Treatment : Continue BID DELMIS ATKINS, PT - 08/18/2019 11:36 EST Pain Assessment Pain Scaled Used : 0-10 Pain scale Pain Score Pre-Intervention : 0 Pain Score During-Intervention : 4 Pain Score Post-Intervention. : 3 DELMIS ATKINS, PT - 08/18/2019 11:36 EST Image 1 - Images currently included in the form version of this document have not been included in the text rendition version of the form. Anticipated Discharge Needs, OT/PT Anticipated Discharge to : Unit, rehabilitation Anticipated Home Equipment : Commode Recommend Continued Therapy at Discharge : Yes DELMIS ATKINS, PT - 08/18/2019 11:36 EST [facility] Charges PT Therap. Exercise 15 min : 1 Gait Training Each 15 Min : 1 PT Eval Low Complexity : 1 DELMIS ATKINS, PT - 08/18/2019 11:36 EST Electronically signed by [place], [facility] Conversion Wind Turbine Engineer Cerner at 11/18/2022 9:32 AM CDT documented in this encounter Plan of Treatment Not on file documented as of this encounter Visit Diagnoses Not on filedocumented in this encounter Care Teams Registered Nurse Maternal Child Relationship Specialty Start Date End Date Alfredo Aguiar MD [address] [place] [address] PCP - General Adolescent Medicine 10/16/22 10/19/22 Alfredo Aguiar MD [address] [place] [address] PCP - General Adolescent Medicine 10/20/22 documented as of this encounter
--- OUTSIDE RECORDS SUMMARY | 2025-01-23 15:55 | XMS_ITS | Encounter Summary ---
Author Organization [employer] [facility] [employer] Address [address] [place] [address] Care Team Providers Care Regulatory Administrator Name Role Phone Alfredo Aguiar MD Primary Care Provider + [phone] Alfredo Aguiar MD Primary Care Provider + [phone] Encounter Details Date Type Department Care Team (Late st Contact Info) Description 05/20/2019 Transcribed Document [facility] [place] [facility] [place] [address] ProviderEryn MD [address] [place] [id number] Social History Tobacco Use Types Packs/Day Years Used Date Smoking Tobacco: Never Assessed Sex and Gender Information Value Date Recorded Sex Assigned at Not on file Legal Sex Male 5:45 PM CDT Gender Identity Not on file Sexual Orientation Not on file documented as of this encounter Miscellaneous Notes * Cerner Conversion Note - Eryn Arcos MD - 05/20/2019 6:53 AM CDT Admission History, Adult Entered On: 05/20/2019 20:04 EDT Performed On: 05/20/2019 19:56 EDT by Ed Sosa RN-Resource Advance Directive Patient has Advance Directive *Q : Yes, Advance Directive with the patient Advance Directive Type : Living will Copy Advance Directive Verified/on Chart : No Ed Sosa RN-Resource - 05/20/2019 19:56 EDT Anesthesia/Transfusion History Family History of Anesthesia Reaction : No prior transfusion(s) Blood Transfusion Acceptable to Patient : Yes Transfusion History : Prior anesthesia without reaction Family History of Anesthesia Reaction : None Ed Sosa RN-Resource - 05/20/2019 19:56 EDT Anticipated Discharge Needs Discharge To, Anticipated : Home Anticipated Discharge Needs at This Time : None Ed Sosa RN-Resource - 05/20/2019 19:56 EDT Education Topics, Admission Orientation DCP GENERIC CODE Advance Directives : Verbalizes understanding Assessment/Vital Signs : Verbalizes understanding Bed Control : Verbalizes understanding Call Light : Verbalizes understanding Diet/Room Service : Verbalizes understanding Fall Prevention : Verbalizes understanding Hand Hygiene : Verbalizes understanding ID Band Applied : Verbalizes understanding Orientation to Room/Bathroom : Verbalizes understanding Patient Bill of Rights : Verbalizes understanding Patient Rights/Responsibilities : Verbalizes understanding Patient Safety : Verbalizes understanding Personal Privacy Code : Verbalizes understanding Rounding : Verbalizes understanding Siderails use/risks : Verbalizes understanding Skin Precautions : Verbalizes understanding Telemetry Monitoring : Verbalizes understanding Television/Phone : Verbalizes understanding Ed Sosa RN-Resource - 05/20/2019 19:56 EDT Functional Assessment Living Situation : Home Patient Lives With : Spouse Persons Assisting Patient at Home : Spouse Current Daily Living Assistance : None FREED Hx Falls Immediate/Within 3 Months : No Current Home Treatments : Blood glucose monitoring, CPAP Ed Sosa RN-Resource - 05/20/2019 19:56 EDT General Info Preferred Name : Mele Arrived From : Other: PACU Mode of Arrival on Unit : Stretcher Legal Guardian : Daughter, Spouse Support 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/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 Support Person/Pt Rep Name : Ashli vázquez Contact Password : Peter Support Person/Pt Rep Contact Information : [place] Family/Rep/Phys Notified of Admit : No Emergency Contact #1 : Ashli Vázquez Emergency Contact #1 Emergency Contact #1 Relationship : Emergency Contact #2 : Raysa Escobar Emergency Contact #2 Emergency Contact #2 Relationship : daughter Information Obtained From : Patient Primary Language : Czech Preferred Communication Mode : Verbal Communication Barrier : None Objects to Sharing Info w Family : No Ed Sosa RN-Resource - 05/20/2019 19:56 EDT Fall Risk Scales ABCs Fall Injury Risk Identification : Age, Bones, Surgery ABC Fall Injury Risk : Moderate to high injury risk Injury Moderate to High Risk Interventions : Specialty low bed, Supervise toileting as indicated, Transport methods appropriate to patient, Visual cues in place FREED Hx Falls Immediate/Within 3 Months : No Freed Secondary Diagnosis : Yes FREED Use of Ambulatory Aid : Bed rest/Nurse assist FREED IV Therapy or IV Access : Yes Freed Gait/Transferring : Weak Freed Mental Status : Oriented to own ability Freed Fall Risk Score : 45 FREED Fall Scale Risk Level : 25-45 Medium Risk [place] Fall Interventions : Adequate lighting, Bed in low position, Call device within reach, Frequent orientation to call device, Frequent orientation to surroundings, Hourly comfort/safety rounds, Non-slip footwear, Personal items within reach, Reinforced to call for assistance before getting out of bed, Room free of clutter/spills, Upper side-rails up, Wheels locked, Wires/Cords secured Fall Moderate to High Risk Interventions : Supervise toileting as indicated, Transport methods appropriate to patient, Visual cues in place Ed Sosa RN-Resource - 05/20/2019 19:56 EDT Fall Risk Education Grid Alarms : Verbalizes understanding Assistive Equipment Use : Verbalizes understanding Bed Height/Stabilization : Verbalizes understanding Call light use : Verbalizes understanding Door Open : Verbalizes understanding Environmental Management : Verbalizes understanding Fall Prevention Protocol : Verbalizes understanding Need Constant Observation : Verbalizes understanding Night Light Use : Verbalizes understanding Nonskid Footwear Use : Verbalizes understanding Personal Article Availability : Verbalizes understanding Prevention Responsibility Patient : Verbalizes understanding Risk Alert Methods : Verbalizes understanding Risk Factors : Verbalizes understanding Safety Aids : Verbalizes understanding Siderails use/risks : Verbalizes understanding Special Assistive Devices : Verbalizes understanding Staff Responsiveness : Verbalizes understanding Symptom Reporting : Verbalizes understanding Transfer/Mobility Techniques : Verbalizes understanding Urinal/Bedpan Availability : Verbalizes understanding Wait for Assistance : Verbalizes understanding Ed Sosa RN-Resource - 05/20/2019 19:56 EDT Barriers to Learning : None evident Fall Risk Scale Calc Temp : 0 Ed Sosa RN-Resource - 05/20/2019 19:56 EDT Health Histories Smoking Status : Never (less than 100 in lifetime; none in last 30 days) Smokeless Tobacco Status : Never Ed Sosa RN-Resource - 05/20/2019 19:56 EDT Social History (As Of: 05/20/2019 20:04:42 EDT) Tobacco: Never (less than 100 in lifetime) Smoking Status. Never Smokeless Tobacco Status. Second Hand Smoke Exposure: Yes. 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 Alcohol Use Frequency Rarely. (Last Updated: 03/24/2018 13:52:20 EDT by HERMAN LARSEN RN) Substance Abuse: Drug Use Hx: No. Use in Last 12 Months: No. (Last Updated: 03/24/2018 13:52:32 EDT by HERMAN LARSEN RN) Height and Weight, Clinical Dosing Height Source : Measured Height Entry Format : [place] Height, Feet : 0 ft(Converted to: 0 cm, 0 Inch) Height, Inches : 72 Inch(Converted to: 6 ft 0 Inch, 182.88 cm) Clinical Height : 182.88 cm Weight Source : Standing scale Weight Entry Format : [place] Clinical Dosing Weight : 80.63 kg Weight, Pounds : 177 lb Weight, Ounces : 6 oz Body Surface Area (BSA) : 2.03 m2 Body Mass Index : 24.1 kg/m2 (HI) [place] Body Weight : 77 kg Ed Sosa RN-Resource - 05/20/2019 19:56 EDT Infectious Disease History Infectious Disease History : Chicken pox/Shingles, Measles, Other: 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 Within Last 30 Days : No Contact With Traveler to Advisory Region : No Tuberculosis Symptoms : None Ed Sosa RN-Resource - 05/20/2019 19:56 EDT Tetanus Immunization Status Previous Tetanus Immunizations : No qualifying data available. Ed Sosa RN-Resource - 05/20/2019 19:56 EDT Influenza Vaccine Asmt, Adult Previous Vaccines from Immunization Schedule : No qualifying data available. Influenza Immunization, Current Season : Yes Ed Sosa RN-Resource - 05/20/2019 19:56 EDT Pneumococcal Vaccine Previous Vaccines from Immunization Schedule : No qualifying data available. Pneumonia Immunization Received : Yes Ed Sosa RN-Resource - 05/20/2019 19:56 EDT Order Details Transport Mode Order Detail : Bed (including specialty) Isolation Precautions Order Detail : Standard Precautions Order Detail : N/A IV Order Detail : 1 Oxygen Order Detail : 0 Nurse Collect Order Detail : 0 Lift/Transfer : Moderate assist Central Line Order Detail : No Room Service : Appropriate Arterial Line : No Ed Sosa RN-Resource - 05/20/2019 19:56 EDT Nutrition History Feeding Ability : Independent Adaptive Feeding Equipment : Diabetic Eating Poorly Due to Decreased Appetite : Yes Unplanned Weight Loss in Past 3-6 Months : Yes Unplanned Weight Loss Amount : 24-33 lbs/10.6-15 kg Malnutrition Screening Tool Total(mal) : 4 Malnutrition Screening Tool Risk Level : Patient at risk Ed Sosa RN-Resource - 05/20/2019 19:56 EDT Psychosocial History Do You Have a History of the Following? : Depression Currently in Unsafe Situation : No Tried to Harm Yourself in the Past? : No Thoughts of Harming/Killing Yourself : No Ed Sosa RN-Resource - 05/20/2019 19:56 EDT Sleep Apnea Risk Assmt BiPAP/CPAP Ordered for Home Use : Yes Hx of Obstructive Sleep Apnea Diagnosis : Yes BiPAP/CPAP Used at Home : Yes Age over 50 Years Old : Yes Gender Male : Yes Ed Sosa RN-Resource - 05/20/2019 19:56 EDT Spiritual/Cultural Needs Any Spiritual/Cultural Needs or Requests : Yes Spiritual/Cultural Needs Comment : prayer before surgery (05/20/2019 in 0900) Spiritual/Cultural Needs Comment : prayer before surgery (05/20/2019 in 0900) Ed Sosa RN-Resource - 05/20/2019 19:56 EDT Valuables and Belongings Valuables and Belongings : Personal devices, Personal items, Respiratory devices, No clothing, No comfort items, No jewelry, No assistive devices, No medications Personal Device Disposition : With patient Personal Devices : Glasses Personal Items : Cell phone Personal Items Disposition : With patient Respiratory Devices : CPAP Respiratory Device Disposition : With patient Ed Sosa RN-Resource - 05/20/2019 19:56 EDT documented in this encounter Plan of Treatment Not on file documented as of this encounter Visit Diagnoses Not on filedocumented in this encounter Care Teams Regulatory Administrator Relationship Specialty Start Date End Date Alfredo Aguiar MD [address] [place] [address] PCP - General Adolescent Medicine 10/16/22 10/19/22 Alfredo Aguiar MD [address] [place] [address] PCP - General Adolescent Medicine 10/20/22 documented as of this encounter
--- OUTSIDE RECORDS SUMMARY | 2025-01-23 15:55 | XMS_ITS | Clinical Summary ---
Author Organization [employer] [facility] [employer] Address [address] [place] [address] Care Team Providers Care Car Porter Name Role Phone Alfredo Aguiar MD Primary Care Provider + [phone] Allergies No known active allergies Medications lisinopriL [...] Date Devin rded Speak language other than Ghanaian at home Not on file 08/21/2023 Want [...] 10/15/2022 11:01 PM EDT Plan of Treatment Health Maintenance Due Date Last Done Comments Medicare Initial AWV [id number] Depression Screening (12+) 1952 Tobacco Cessation Counseling and Screening (12+) 1952 Pneumococcal 50+ years (1 of 2 - PCV) 1957 Respiratory Syncytial Virus (RSV) Adult or (1 - 1-dose 75+ series) 2013 COVID-19 VACCINE (2023-2 5 season) 2024 05/14/2022, 05/14/2022, 01/07/2022, Additional history exists Falls Risk Screening 08/03/2024 Influenza Vaccine (Season Ended) 2025 04/28/2022, 04/28/2022, 03/21/2021, Additional history exists DTAP/TDAP/TD VACCINES (2 - T d or Tdap) 12/07/2031 12/06/2021 Shingles Vaccine (Zoster) Completed 11/09/2018, Insurance MEDICARE PART A B [employer] Advance Directives For more information, please contact: [phone] * Full Code (Latest Code Status on File) Date Activated Date Inactivated Comments 10/15/2022 10:17 PM 10/16/2022 7:32 PM Care Teams Car Porter Relationship Specialty Start Date End Date Alfredo Aguiar MD [address] [place] [address] PCP - General Adolescent Medicine 10/20/22
--- OUTSIDE RECORDS SUMMARY | 2025-01-23 15:55 | XMS_ITS | Encounter Summary ---
Author Organization [employer] [facility] [employer] Address [address] [place] [address] Care Team Providers Care Emergency Physician Name Role Phone Alfredo Aguiar MD Primary Care Provider + [phone] Alfredo Aguiar MD Primary Care Provider + [phone] Encounter Details Date Type Department Care Team (Late st Contact Info) Description 05/23/2019 Transcribed Document [facility] [place] [facility] [place] [address] ProviderEryn MD [address] [place], [place] [id number] Social History Tobacco Use Types Packs/Day Years Used Date Smoking Tobacco: Never Assessed Sex and Gender Information Value Date Recorded Sex Assigned at Not on file Legal Sex Male 5:45 PM CDT Gender Identity Not on file Sexual Orientation Not on file documented as of this encounter Miscellaneous Notes * Cerner Conversion Note - Eryn Arcos MD - 05/23/2019 12:34 PM CDT Stroke/Warfarin Instructions Entered On: 05/23/2019 12:35 EDT Performed On: 05/23/2019 12:34 EDT by ADITYA CRUMP RN Stroke/Warfarin Instructions Stroke/TIA Discharge Ins : N/A Warfarin Discharge Ins : N/A ADITYA CRUMP RN - 05/23/2019 12:34 EDT documented in this encounter Plan of Treatment Not on file documented as of this encounter Visit Diagnoses Not on filedocumented in this encounter Care Teams Emergency Physician Relationship Specialty Start Date End Date Alfredo Aguiar MD [address] [place] [address] PCP - General Adolescent Medicine 10/16/22 10/19/22 Alfredo Aguiar MD [address] [place] [address] PCP - General Adolescent Medicine 10/20/22 documented as of this encounter
--- OUTSIDE RECORDS SUMMARY | 2025-01-23 15:55 | XMS_ITS | Encounter Summary ---
Author Organization [employer] [facility] [employer] Address [address] [place] [address] Care Team Providers Care [employer] Dean Name Role Phone Alfredo Aguiar MD Primary Care Provider + [phone] Alfredo Aguiar MD Primary Care Provider + [phone] Encounter Details Date Type Department Care Team (Late st Contact Info) Description 08/17/2019 Transcribed Document [facility] [place] [address] ProviderEryn MD [address] [place] [id number] Social History Tobacco Use Types Packs/Day Years Used Date Smoking Tobacco: Never Assessed Sex and Gender Information Value Date Recorded Sex Assigned at Not on file Legal Sex Male 5:45 PM CDT Gender Identity Not on file Sexual Orientation Not on file documented as of this encounter Miscellaneous Notes * Cerner Conversion Note - Eryn Arcos MD - 08/17/2019 6:35 PM CHIEF CREDIT OFFICER Pain Assessment Entered On: 08/19/2019 19:59 EST Performed On: 08/19/2019 12:21 EST by Gabrielle Persaud RN Intervention Information: oxyCODONE Performed by Gabrielle Persaud RN on 08/19/2019 11:21:00 EST oxyCODONE,10mg Oral,Pain (Severe 7-10) Pain Assessment Pain Assessment : Follow-up assessment Pain Scale Goal : 4 Pain Scale Used : 0-10 Scale Location : Knee, left Onset : Acute Gabrielle Persaud RN - 08/19/2019 19:58 EST Pain Scale Intensity : 3 Gabrielle Persaud RN - 08/19/2019 19:58 EST Image 4 - Images currently included in the form version of this document have not been included in the text rendition version of the form. documented in this encounter Plan of Treatment Not on file documented as of this encounter Visit Diagnoses Not on filedocumented in this encounter Care Teams [employer] Dean Relationship Specialty Start Date End Date Alfredo Aguiar MD [address] [place] [address] PCP - General Adolescent Medicine 10/16/22 10/19/22 Alfredo Aguiar MD [address] [place] [address] PCP - General Adolescent Medicine 10/20/22 documented as of this encounter
--- OUTSIDE RECORDS SUMMARY | 2025-01-23 15:56 | XMS_ITS | Encounter Summary ---
Author Organization [employer] Address [address] [place] [address] Care Team Providers Care Wire Sawyer Name Role Phone Alfredo Aguiar MD Primary Care Provider + [phone] Alfredo Aguiar MD Primary Care Provider + [phone] Encounter Details Date Type Department Care Team (Late st Contact Info) Description 05/22/2019 Transcribed Document [facility] Family Medicine [facility] [place] [address] Eryn Arcos MD [address] [place] [id number] Social History Tobacco Use Types Packs/Day Years Used Date Smoking Tobacco: Never Assessed Sex and Gender Information Value Date Recorded Sex Assigned at Not on file Legal Sex Male 5:45 PM CDT Gender Identity Not on file Sexual Orientation Not on file documented as of this encounter Miscellaneous Notes * Cerner Conversion Note - Eryn Arcos MD - 05/22/2019 11:26 AM CDT Patient: LORA JAIN JR Age: 78 years Sex: Male : 1940 Associated Diagnoses: 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 Lopez covering for Basic Information ???Confused ???Slight increase in his creatinine ???Hemoglobin 7.9 ???Patient is somewhat volume depleted and will replace with IV fluid his hemoglobin Will drop more Then we have to start the blood. I think if we start the blood from now all his numbers will improve. He systolic blood pressure is 108 ???We'll DC narcotics for nowAnd I'll start him on scheduled Tylenol 1 g every 6 hours and tramadol 25 mg every 4 hours when necessary ???Uncontrolled diabetes mellitus and we will add Humalog twice a day in addition to his current scheduled Home dose ???Hyponatremia most probably volume related Review of Systems Constitutional: No fever, No chills. Eye: No discharge, No blurring, No double vision, No visual disturbances. Ear/Nose/Mouth/Throat: No nasal congestion, No sore throat. Respiratory: No shortness of breath, No cough. Cardiovascular: No chest pain, No palpitations. Gastrointestinal: No nausea, No vomiting. Genitourinary: No change in urine stream. Musculoskeletal: Negative. Integumentary: wound stable covered w. clean dressing. Neurologic: Alert and oriented X4. Health Status Allergies: Allergies (1) Active Reaction No Known Allergies None Documented Current medications: Medications (30) Active Scheduled: (16) #NaCl 0.9% *FLUSH* inj 10 mL 10 mL, IV Push, Q12H acetaminophen 500 mg tab 1,000 mg 2 Tab, Oral, Q6H bisoprolol 5 mg tab 5 mg 1 Tab, Oral, Daily cefTRIAXone 2 Gram, IV Piggyback, [id number] docusate sodium 100 mg cap 100 mg 1 Cap, Oral, BID ferrous gluconate 324 mg tab 324 mg 1 Tab, Oral, Daily glycopyrrolate 15.6 mcg inh cap #6 15.6 mcg 1 Each, Inhalation, BID heparin 5,000 units/1 mL inj 5,000 Units 1 mL, SubCutaneous, Q8H insulin lispro 1 unit/0.01 mL inj Scale A:, SubCutaneous, AC and at Bedtime insulin NovoLOG 70/30 1 unit/0.01 mL inj 32 Units 0.32 mL, SubCutaneous, AC Breakfast insulin NovoLOG 70/30 1 unit/0.01 mL inj 18 Units 0.18 mL, SubCutaneous, AC Dinner multiple vitamin (Thera) tab 1 Tab, Oral, Daily pantoprazole EC 40 mg tab 40 mg 1 Tab, Oral, Daily polyethylene glycol 3350 pwd 17 g pkt 17 Gram 1 Packet, Oral, Daily saccharomyces boulardii 250 mg cap 250 mg 1 Cap, Oral, BID senna/docusate 8.6/50 mg tab 2 Tab, Oral, At Bedtime Continuous: (1) insulin regular 100 Units + NaCl 0.9% 100 mL 100 mL, IntraVENous PRN: (13) #NaCl 0.9% *FLUSH* inj 10 mL 10 mL, IV Push, See Comment bisacodyl 10 mg supp 10 mg 1 Supp, Rectal, BID Cepacol Max Dow lozenge 1 Lozenge, Oral, Q2H cloNIDine 0.2 mg tab 0.2 mg 1 Tab, Oral, Q4H hydrALAZINE 20 mg/1 mL inj 10 mg 0.5 mL, IV Push, Q6H magnesium hydroxide 8% liq 30 mL 30 mL, Oral, TID naloxone 0.4 mg/1 mL inj 0.1 mg 0.25 mL, IV Push, Q5Min ondansetron 4 mg tab 4 mg 1 Tab, Oral, Q4H ondansetron 4 mg/2 mL inj 4 mg 2 mL, IV Push, Q4H petrolatum 100% oint 28 g 1 Application, Topical, Daily promethazine 25 mg/1 mL inj 12.5 mg 0.5 mL, IV Push, Q6H simethicone 80 mg chew tab 80 mg 1 Tab, Oral, Q6H traMADol 50 mg tab 25 mg 0.5 Tab, Oral, QID Problem list: Active Problems (22) Anemia Arthritis Asthma Bundle [...] syndrome (occasional) Skin cancer Sleep apnea (cpap) Physical Examination VS/Measurements Vital Measurements 05/22/2019 6:58 EDT Systolic Blood Pressure 108 mmHg Diastolic Blood Pressure 46 mmHg LOW Mean Arterial Pressure (MAP)-BMDI 61 Temperature Source Oral Temperature Mode Fahrenheit Temperature, Fahrenheit 98 Deg F Clinical Temperature, C 36.7 Deg C Heart Rate Monitored 81 bpm Respiratory Rate 16 Breaths/Min General: Alert and oriented, No acute distress. Eye: Pupils are equal, round and reactive to light, Extraocular movements are intact. HENT: Oral mucosa is moist. Neck: Supple, No carotid bruit, No jugular venous distention, No lymphadenopathy, No thyromegaly. Respiratory: Lungs are clear to auscultation, Breath sounds are equal. Cardiovascular: Normal rate, Regular rhythm, No murmur. Gastrointestinal: Soft, Non-tender, Normal bowel sounds, No organomegaly. Genitourinary: No costovertebral angle tenderness, No inguinal tenderness. Lymphatics: No lymphadenopathy neck, axilla, groin. Musculoskeletal: Normal strength, No swelling. Integumentary: Warm, Intact, No rash, WOUND STABLE. Neurologic: Alert, Oriented, No focal deficits. Psychiatric: Cooperative, Appropriate mood & affect. Review / Management Results review: All Results 05/22/2019 3:35 EDT Sodium Level 131 mmol/L LOW Potassium Level 4.5 mmol/L Chloride Level 96 mmol/L LOW Carbon Dioxide Level 19 mmol/L LOW Anion Gap 20 Glucose Level 415 mg/dL HI Blood Urea Nitrogen 24 mg/dL HI Creatinine Level 1.50 mg/dL HI eGFR 55 mL/min/1.73m2 LOW eGFR NonAfrican 45 mL/min/1.73m2 LOW Bun/Creatinine 16.0 Calcium Level 9.3 mg/dL WBC 11.5 K/uL HI RBC 2.93 Million/uL LOW Hgb 7.9 g/dL LOW Hct 24.4 % LOW MCV 83.3 fL MCH 27.0 pg MCHC 32.4 Gram/dL Platelet Count 462 K/uL HI MPV 8.7 fL LOW RDW 16.3 % HI Neut % 89.5 % HI Neut # 10.33 K/uL HI Lymph % 2.3 % LOW Lymph # 0.26 x10(3)/uL LOW Cross % 6.2 % Cross # 0.72 K/uL Eos % 0.2 % Eos # 0.02 x10(3)/uL Baso % 0.3 % Baso # 0.03 x10(3)/uL Slide Review No IG# 0.17 x10(3)/uL HI IG% 1.50 % HI 05/21/2019 3:20 EDT Sodium Level 134 mmol/L LOW Potassium Level 4.3 mmol/L Chloride Level 98 mmol/L LOW Carbon Dioxide Level 27 mmol/L Anion Gap 13 Glucose Level 305 mg/dL HI Blood Urea Nitrogen 21 mg/dL Creatinine Level 1.30 mg/dL eGFR >60 mL/min/1.73m2 eGFR NonAfrican 53 mL/min/1.73m2 LOW Bun/Creatinine 16.2 Calcium Level 8.5 mg/dL WBC 9.5 K/uL RBC 3.05 Million/uL LOW Hgb 8.0 g/dL LOW Hct 25.5 % LOW MCV 83.6 fL MCH 26.2 pg MCHC 31.4 Gram/dL LOW Platelet Count 454 K/uL HI MPV 8.8 fL LOW RDW 16.1 % HI Neut % 86.9 % HI Neut # 8.22 K/uL HI Lymph % 3.8 % LOW Lymph # 0.36 x10(3)/uL LOW Cross % 8.3 % Cross # 0.79 K/uL Eos % 0.0 % Eos # 0.00 x10(3)/uL Baso % 0.2 % Baso # 0.02 x10(3)/uL Slide Review No IG# 0.08 x10(3)/uL HI IG% 0.80 % HI . 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 Uncontrolled diabetes mellitus - Admitting, Medical. Hypertension affecting - Admitting, Medical. Asthma - Admitting, Medical. CA - Cancer of prostate (hx of) - Admitting, Medical. GERD - Gastro-esophageal reflux disease (occasional) - Admitting, Medical. Hyponatremia - Working, Medical. Acute kidney injury superimposed on CKDstage III - Working, Medical. Course: Plan/ cont. current care, pt/ot, encourage oral fluid intake, nutritional support, encourage use of respirometer, motoring blood pressure, renal function, blood glucose, and urine output. transfuse 2 units of packed RBCs as patient is volume depleted and if will give more IV fluid his H&H was dropped more and we have 2 give blood so that start from now. DC all narcotics. We will give Tylenol and tramadol for pain. Orders Order Profile (Selected) Inpatient Orders Ordered (Scheduled) CMP Comprehensive Metabolic Panel: Specimen Type: Blood, AM Draw collect, 05/23/19 4:00:00 EDT, 1-Time, Stop: 05/23/19 4:00:00 EDT, Lab Collect. documented in this encounter Plan of Treatment Not on file documented as of this encounter Visit Diagnoses Not on filedocumented in this encounter Care Teams Wire Sawyer Relationship Specialty Start Date End Date Alfredo Aguiar MD [address] [place] [address] PCP - General Adolescent Medicine 10/16/22 10/19/22 Alfredo Aguiar MD [address] [place] [address] PCP - General Adolescent Medicine 10/20/22 documented as of this encounter
--- OUTSIDE RECORDS SUMMARY | 2025-01-23 15:56 | XMS_ITS | Encounter Summary ---
Author Organization [employer] Address [address] [place] [address] Care Team Providers Care Therapist Name Role Phone Alfredo Aguiar MD Primary Care Provider + [phone] Alfredo Aguiar MD Primary Care Provider + [phone] Encounter Details Date Type Department Care Team (Late st Contact Info) Description 05/22/2019 Transcribed Document [facility] [place] Family [place] [facility] [place] [address] ProviderEryn MD [address] [place] [id number] Social History Tobacco Use Types Packs/Day Years Used Date Smoking Tobacco: Never Assessed Sex and Gender Information Value Date Recorded Sex Assigned at Not on file Legal Sex Male 5:45 PM CDT Gender Identity Not on file Sexual Orientation Not on file documented as of this encounter Miscellaneous Notes * Cerner Conversion Note - Eryn Arcos MD - 05/22/2019 4:17 PM CDT Event Note Entered On: 05/22/2019 16:20 EDT Performed On: 05/22/2019 16:17 EDT by Marcelina Bojorquez RN Event Note Event Date/Time : 05/22/2019 11:00 EDT Event Location : Assigned room Event Details : Change in condition Description of Event : Noted patient with icnreased confusion, a Blood sugar @ 422, HBG 7.[address] Eber Lopez md made aware with new orders taken and noted to given an additional 20 units of Humalog at lunch daily and type and cross for 2 units of blood. Will continue to monitor. Marcelina Bojorquez RN - 05/22/2019 16:17 EDT Electronically signed by Edward Paris Conversion Hydroelectric Production Technician Cerner at 11/18/2022 9:40 AM CDT documented in this encounter Plan of Treatment Not on file documented as of this encounter Visit Diagnoses Not on filedocumented in this encounter Care Teams Therapist Relationship Specialty Start Date End Date Alfredo Aguiar MD [address] [place] [address] PCP - General Adolescent Medicine 10/16/22 10/19/22 Alfredo Aguiar MD [address] [place] [address] PCP - General Adolescent Medicine 10/20/22 documented as of this encounter
--- OUTSIDE RECORDS SUMMARY | 2025-01-23 15:56 | XMS_ITS | Encounter Summary ---
Author Organization [facility] [employer] Address [address] [facility] [place] [address] Care Team Providers Care Ms Sql Server Developer Name Role Phone Alfredo Aguiar MD Primary Care Provider + [phone] Alfredo Aguiar MD Primary Care Provider + [phone] Encounter Details Date Type Department Care Team (Late st Contact Info) Description 08/20/2019 Transcribed Document [address] [id number] Massimo Butterfield MD [address] [place], [place] [id number] Social History Tobacco Use Types Packs/Day Years Used Date Smoking Tobacco: Never Assessed Sex and Gender Information Value Date Recorded Sex Assigned at Not on file Legal Sex Male 5:45 PM CDT Gender Identity Not on file Sexual Orientation Not on file documented as of this encounter Miscellaneous Notes * Cerner Conversion Note - Massimo Butterfield MD - 08/20/2019 10:38 AM EST Patient: LORA JAIN JR Age: 78 years Sex: Male : 1940 Associated Diagnoses: None Author: JOS CLARK APRN-NATHANIEL 08/17/2019 cc: medical management s/p left total knee revision arthroplasty per Dr. Allison S: Patient found sitting up in bed. A/O. Daughter at bedside. Patient reports he rested well again last night. Pain is controlled with oral pain meds. Patient ambulates with walker assist. Denies cough, dyspnea, n/v or dysuria. Bowels have not yet moved but patient is passing gas. [facility] HPI: Patient is an 78 yo male admitted to [facility] per Dr. 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 - 03/24/2018 13:52 - HERMAN LARSEN, RN Home Medications (14) Active amoxicillin 875 mg oral tablet 875 mg = 1 Tab, Oral, BID aspirin 81 mg oral tablet 81 mg [...] Gastrointestinal: [No nausea, vomiting Genitourinary: [No hematuria, dysuria, +urinary frequency Musculoskeletal: left knee pain with decreased ROM Integumentary: [No rash, pruritus Neurologic: [No weakness, numbness Psychiatric: [No anxiety, depression Exam: Vitals Signs (last 24 hrs) Last Charted Minimum Maximum Temp 97.5 (AUG 20 06:00) 97.5 (AUG 20 06:00) 99.5 (AUG 19 21:29) Mon HR 75 (AUG 20 08:29) 65 (AUG 20 02:17) 79 (AUG 19 20:49) Resp Rate 15 (AUG 20 08:29) 15 (AUG 20 08:29) 16 (AUG 19 18:45) SBP 108 (AUG 20 06:00) 102 (AUG 19 18:45) 118 (AUG 19 21:29) DBP L 55 (AUG 20 06:00) L 51 (AUG 20 02:17) 81 (AUG 19 11:04) MAP 71 (AUG 20 06:00) 71 (AUG 19 21:29) 94 (AUG 19 11:04) SpO2 97 (AUG 20 08:29) 95 (AUG 19 18:45) 97 (AUG 19 16:09) General: [Alert and oriented, no acute distress]. Neurologic: [Awake, alert, and oriented X3, CN II-XII intact]. Eye: [PERRL, EOMI, normal conjunctiva]. HENT: [Normocephalic, normal hearing, moist oral mucosa, no scleral icterus, no sinus tenderness]. Neck: [Supple, non-tender, no lymphadenopathy]. Lungs: [Clear to auscultation, non-labored respiration]. Heart: [Normal rate, regular rhythm, no edema]. Abdomen: [Soft, non-tender, non-distended, normal bowel sounds Musculoskeletal: Left knee pain with decreased ROM Skin: [Skin is warm, dry and pink Psychiatric: [Cooperative, appropriate mood and affect]. Data: Labs (Last four charted values) WBC 6.9 (AUG 20) 7.9 (AUG 19) 7.8 (AUG 18) 6.4 (AUG 04) HB L 11.1 (AUG 20) L 11.0 (AUG 19) L 11.6 (AUG 18) L 11.9 (AUG 17) HCT L 34.4 (AUG 20) L 33.0 (AUG 19) L 35.9 (AUG 18) 41.4 (AUG 04) Plt 253 (AUG 20) 238 (AUG 19) 294 (AUG 18) 309 (AUG 04) Na 136 (AUG 20) L 134 (AUG 19) 136 (AUG 16) 138 (AUG 04) K 4.5 (AUG 20) 4.6 (AUG 19) 4.4 (AUG 18) 5.0 (AUG 04) Cl 102 (AUG 18) L 101 (AUG 17) 102 (AUG 18) 103 (AUG 04) CO2 31 (AUG 20) 29 (AUG 19) 32 (AUG 18) 28 (AUG 04) BUN H 29 (AUG 20) H 23 (AUG 19) H 24 (AUG 18) H 35 (AUG 04) Cr H 1.50 (AUG 20) 1.30 (AUG 19) H 1.40 (AUG 18) H 1.70 (AUG 04) Glu R H 199 (AUG 20) H 302 (AUG 19) H 237 (AUG 18) H 126 (AUG 04) Ca 9.5 (AUG 20) 8.9 (AUG 19) 8.6 (AUG 18) 9.7 (AUG 04) PT 10.2 (AUG 04) INR 1.0 (AUG 04) PTT 25.7 (AUG 04) Impression: left knee septic arthritis s/p protracted IV abx course for infection and placement of abx spacer with prosthesis removal -s/p left total knee revision arthroplasty per Dr. Allison HTN GERD DM Plan: Ok to discharge today from medical standpoint Patient will receive oral amoxicillin per ID recommendations continue bowel regimen continue incentive spirometer PT/OT- inpatient at [facility] Pain management deferred to surgeon resume outpatient medication regimen for comorbidities assessment and treatment plan made in conjunction with Yissel Butterfield MD Scribed by Renetta Solomon documented in this encounter Plan of Treatment Not on file documented as of this encounter Visit Diagnoses Not on filedocumented in this encounter Care Teams Ms Sql Server Developer Relationship Specialty Start Date End Date Alfredo Aguiar MD [address] [place] [address] PCP - General Adolescent Medicine 10/16/22 10/19/22 Alfredo Aguiar MD [address] [place] [address] PCP - General Adolescent Medicine 10/20/22 documented as of this encounter
--- OUTSIDE RECORDS SUMMARY | 2025-01-23 15:56 | XMS_ITS | Encounter Summary ---
Author Organization [employer] Address [address] [place] [address] Care Team Providers Care Metallurgical Analyst Name Role Phone Alfredo Aguiar MD Primary Care Provider + [phone] Alfredo Aguiar MD Primary Care Provider + [phone] Encounter Details Date Type Department Care Team (Late st Contact Info) Description 08/20/2019 Transcribed Document [facility] [place] [facility] [place] [address] ProviderEryn MD [address] [place] [address] [id number] Social History Tobacco Use Types Packs/Day Years Used Date Smoking Tobacco: Never Assessed Sex and Gender Information Value Date Recorded Sex Assigned at Not on file Legal Sex Male 5:45 PM CDT Gender Identity Not on file Sexual Orientation Not on file documented as of this encounter Miscellaneous Notes * Cerner Conversion Note - Eryn Arcos MD - 08/20/2019 12:26 PM INHALATION THERAPY AIDES TEACHER Patient Education Materials Follows: Discharge Instructions for Total Knee Replacement Your Knee Incision: Do not swim, soak or bathe in a tub until cleared by the surgeon. If you have a light brown dressing: Keep your dressing in place for 7-10 days. This type of dressing is water resistant. Please check the edges of the dressing. If they are in place, you may shower until the dressing is removed. The home health Physical Therapist or Nurse will remove the dressing after 7-10 days. Or your surgeon will remove it at your return appointment. Then your incision may be open to air. It will be best to sponge bathe from the time the dressing is removed until your return appointment. If you have a dry, white dressing: Change your dressing when needed (if the dressing is dirty or old). Wash your hands before and after changing the dressing. Activity ?? You may put weight on your leg when you walk, unless your surgeon tells you not differently. Use your walker until the therapist or surgeon say you do not need it anymore. Continue your exercises from physical therapy. ?? Complete straightening exercises (whether using Zero Knee Foam or Tubs ) AT LEAST three times a day for 30 minutes, keep toes pointed to ceiling. Keep knee straight and extended unless you are doing bending exercises. No pillow under knee. ?? Stay active, get up every 1-2 hours, walk short distances, and walk a little more each week. No driving until cleared by your surgeon. ?? If your surgeon has ordered support hose, wear them for 6 weeks in order to prevent blood clots. Take them off 1-2 times per day for about 30 minutes-1 hour. Check your skin for red or open areas under the hose. They can be bought online and at many pharmacies, be sure that compression is 15-20mmHg and that they are thigh-high. ?? If you have a CPM, use it 2 hours 2x/day. ?? For swelling, elevate your leg above your heart. Remember to keep knee straight and NOT bent, unless you are doing your bending exercises. ?? Cold therapy 30 minutes on and 30 minutes off with cloth or clothing between skin and cold wrap. General Instructions: ?? Eat 25-35 grams of fiber every day. Drink 8-10 glasses of water a day and take stool softeners while you are on pain medication, since they cause constipation. If you do not have a bowel movement in 3-4 days after your surgery, try an over the counter laxative, such as milk of magnesia, miralax, dulcolax tablet or suppository, or fleets enema. If you do not have success after this, contact your home health nurse or surgeon office. ?? Continue using your incentive spirometer to keep fever and lung infection away. Aim for 10 breaths every hour while you are awake. ?? Take pain medicine as needed, especially before therapy. ?? Let your doctors and dentist know you have a prosthetic knee. They may need to give you an antibiotic before a procedure. Call Your Surgeon: Infection: Your hip has increased swelling that does not get better with time, propping up your leg and with rest. Your incision has a foul smell or your incision begins to open. Your incision gets red, is warm or has increased drainage after 2 days. You have a fever over 101 degrees for more than 24 hours. A Blood Clot: You have increased swelling, redness, warmth or pain in your calf. A Fall: You fall down without obvious injury. Call 911: You have sudden chest pain and/or difficulty breathing You fall and cannot get up Stroke signs and symptoms: Facial droop, uneven smile, arm numbness, arm weakness, slurred speech, difficulty speaking or understanding CALL FIRST! Unless you are experiencing life-threatening issues, call your surgeon's office or nurse navigator first, before going to the Emergency Department. Call your surgeon or nurse navigator if: ?? Your incision has increased swelling that does not get better with time, rest, and propping up your leg ?? Your incision has a foul smell or begins to open ?? You have a large amount of bleeding from incision ?? Your incision gets red, warm or increased drainage after 2 days ?? You have a fever over 101 degrees for more than 24 hours ?? You have increased swelling, redness, warmth or pain in your calf ?? You fall, but don't have an obvious injury ?? You have questions or cause for concern regarding your total joint replacement Call 911 if: ?? You have sudden chest pain or shortness of breath ?? You fall and cannot get up ?? Life-threatening signs or symptoms ?? Stroke signs and symptoms: Facial droop, uneven smile, arm numbness, arm weakness, slurred speech, difficulty speaking or understanding If you are a patient of Dr. Allison or Dr. Haskins, call [phone] If you are a patient of Dr. Coello, call [phone] Nurse Navigator: Sil Rodriguez Office: [phone]; ; available during regular business hours Total Knee Replacement, Care After These instructions give you information about caring for yourself after your procedure. Your doctor may also give you more specific instructions. Call your doctor if you have any problems or questions after your procedure. Follow these instructions at home: Medicines ??? Take xngy-kqh-qpuhcpa and prescription medicines only as told by your doctor. ??? If you were prescribed an antibiotic medicine, take it as told by your doctor. Do not stop taking the antibiotic even if you start to feel better. ??? If you were prescribed a blood thinner (anticoagulant), take it as told by your doctor. Bathing ??? Do not take baths, swim, or use a hot tub until your doctor says it is okay. Ask your doctor if you can take showers. You may only be allowed to take sponge baths for bathing. ??? If you have a splint or brace that is not waterproof, cover it with a watertight covering when you take a bath or a shower. ??? Keep your bandage (dressing) dry until your doctor says it can be taken off. Incision care and drain care ??? Check your cut from surgery (incision) and your drain every day for signs of infection. Check for: ? More redness, swelling, or pain. ? More fluid or blood. ? Warmth. ? Pus or a bad smell. ??? Follow instructions from your doctor about how to take care of your cut from surgery. Make sure you: ? Wash your hands with soap and water before you change your bandage. If you cannot use soap and water, use hand finance officer. ? Change your bandage as told by your doctor. ? Leave stitches (sutures), skin glue, or skin tape (adhesive) strips in place. They may need to stay in place for 2 weeks or longer. If tape strips get loose and curl up, you may trim the loose edges. Do not remove tape strips completely unless your doctor says it is okay. ??? If you have a drain, follow instructions from your doctor about caring for it. Do not remove the drain tube or any bandages unless your doctor says it is okay. Managing pain, stiffness, and swelling ??? If directed, put ice on your knee. ? Put ice in a plastic bag or use the icing device (cold flow pad or cryocuff) that you were given. Follow your doctor's directions about how to use the icing device. ? Place a towel between your skin and the bag, or between your skin and the device. ? Leave the ice on for 20 minutes, 2?3 times per day. ??? If directed, apply heat to the affected area as often as told by your doctor. Use the heat source that your doctor recommends, such as a moist heat pack or a heating pad. ? Place a towel between your skin and the heat source. ? Leave the heat on for 20?30 minutes. ? Remove the heat if your skin turns bright red. This is especially important if you are unable to feel pain, heat, or cold. You may have a greater risk of getting burned. ??? Move your toes often to avoid stiffness and to lessen swelling. ??? Raise (elevate) your knee above the level of your heart while you are sitting or lying down. ??? Wear elastic knee support for as long as told by your doctor. Driving ??? Do not drive until your doctor says it is okay. Ask your doctor when it is safe to drive if you have a splint or brace on your knee. ??? Do not drive or use heavy machinery while taking prescription pain medicine. ??? Do not drive for 24 hours if you received a sedative. Activity ??? Do not play contact sports until your doctor says it is okay. ??? Avoid high-impact activities, including running, jumping rope, and jumping jacks. ??? Avoid sitting for a long time without moving. Get up and move around at least every few hours. ??? If physical therapy was prescribed, do exercises as told by your doctor. ??? Return to your normal activities as told by your doctor. Ask your doctor what activities are safe for you. Safety ??? Do not use your leg to support your body weight until your doctor says that you can. Use crutches or a walker as told by your doctor. General instructions ??? Do not have any dental work done for at least 3 months after your surgery. When you do have dental work done, tell your dentist about your joint replacement. ??? Do not use any tobacco products, such as cigarettes, chewing tobacco, or e-cigarettes. If you need help quitting, ask your doctor. ??? Wear special socks (compression stockings) as told by your doctor. ??? If you have been sent home with a knee joint motion machine (continuous passive motion machine), use it as told by your doctor. ??? Drink enough fluid to keep your pee (urine) clear or pale yellow. ??? If you have been told to lose weight, follow instructions from your doctor about how to do this safely. ??? Keep all follow-up visits as told by your doctor. This is important. Contact a doctor if: ??? You have more redness, swelling, or pain around your cut from surgery or your drain. ??? You have more fluid or blood coming from your cut from surgery or your drain. ??? Your cut from surgery or your drain area feels warm to the touch. ??? You have pus or a bad smell coming from your cut from surgery or your drain. ??? You have a fever. ??? Your cut breaks open after your doctor removes your stitches, skin glue, or skin tape strips. ??? Your new joint feels loose. ??? You have knee pain that does not go away. Get help right away if: ??? You have a rash. ??? You have pain in your calf or thigh. ??? You have swelling in your calf or thigh. ??? You have shortness of breath. ??? You have trouble breathing. ??? You have chest pain. ??? Your ability to move your knee is getting worse. This information is not intended to replace advice given to you by your health care provider. Make sure you discuss any questions you have with your health care provider. Document Released: 10/11/2012 Document Revised: 09/07/2017 Document Reviewed: 06/25/2016 [employer] Interactive Patient Education ? 2019 [employer] documented in this encounter Plan of Treatment Not on file documented as of this encounter Visit Diagnoses Not on filedocumented in this encounter Care Teams Metallurgical Analyst Relationship Specialty Start Date End Date Alfredo Aguiar MD [address] [place] [address] PCP - General Adolescent Medicine 10/16/22 10/19/22 Alfredo Aguiar MD [address] [place] [address] PCP - General Adolescent Medicine 10/20/22 documented as of this encounter
--- OUTSIDE RECORDS SUMMARY | 2025-01-23 15:56 | XMS_ITS | Encounter Summary ---
Author Organization [employer] Address [address] [place] [address] Care Team Providers Care Mechanical Engineering Coop Name Role Phone Alfredo Aguiar MD Primary Care Provider + [phone] Alfredo Aguiar MD Primary Care Provider + [phone] Encounter Details Date Type Department Care Team (Late st Contact Info) Description 05/23/2019 Transcribed Document [facility] [place] [facility] [place] [address] ProviderEryn MD [address] [place] [id number] Social History Tobacco Use Types Packs/Day Years Used Date Smoking Tobacco: Never Assessed Sex and Gender Information Value Date Recorded Sex Assigned at Not on file Legal Sex Male 5:45 PM CDT Gender Identity Not on file Sexual Orientation Not on file documented as of this encounter Miscellaneous Notes * Cerner Conversion Note - Eryn Arcos MD - 05/23/2019 6:00 AM CDT Pain Assessment Entered On: 05/23/2019 16:31 EDT Performed On: 05/23/2019 7:33 EDT by ADITYA CRUMP RN Intervention Information: acetaminophen Performed by Eric Guerrero RN-Resource on 05/23/2019 06:33:00 EDT acetaminophen,1000mg Oral Pain Assessment Pain Assessment : Follow-up assessment Pain Scale Goal : 3 Pain Scale Used : 0-10 Scale Location : Knee, left Onset : Acute Quality : Aching Pain Radiation : No Pain Improved by : Medication Pain Worsened by : Movement Pain Intervention, Drug : Medicated Pain Improved by Intervention : Yes ADITYA CRUMP RN - 05/23/2019 16:30 EDT Pain Scale Intensity : 0 ADITYA CRUMP RN - 05/23/2019 16:30 EDT Image 4 - Images currently included in the form version of this document have not been included in the text rendition version of the form. documented in this encounter Plan of Treatment Not on file documented as of this encounter Visit Diagnoses Not on filedocumented in this encounter Care Teams Mechanical Engineering Coop Relationship Specialty Start Date End Date Alfredo Aguiar MD [address] [place] [address] PCP - General Adolescent Medicine 10/16/22 10/19/22 Alfredo Aguiar MD [address] [place] [address] PCP - General Adolescent Medicine 10/20/22 documented as of this encounter
--- OUTSIDE RECORDS SUMMARY | 2025-01-23 15:56 | XMS_ITS | Encounter Summary ---
Author Organization [facility] Address [address] [place] [address] Care Team Providers Care Documentation Consultant Name Role Phone Alfredo Aguiar MD Primary Care Provider [phone] Reason for Visit * Reason Comments Med Refill Encounter Details Date Type Department Care Team (Late st Contact Info) Description 10/07/2023 Refill [place] [id number] [facility] [address] [place] [address] Lizzie Farmer, DIVISIONAL MERCHANDISING MANAGER [address] [address] Vitamin D deficiency Social History Tobacco Use Types Packs/Day Years Used Date Smoking Tobacco: Never Smokeless Tobacco: Never Alcohol Use Standard Drinks/Week Comments Not Currently 0 (1 standard drink = 0.6 oz pur e alcohol) Sex and Gender Information Value Date Recorded Sex Assigned at Not on file Legal Sex Male 8:50 PM EDT Gender Identity Not on file Sexual Orientation Not on file documented as of this encounter Plan of Treatment Upcoming Encounters Date Type Department Care Team (Late st Contact Info) Description 01/27/2025 11:40 AM EDT Office Visit [facility] [address] [place] [address] Lizzie Farmer, DIVISIONAL MERCHANDISING MANAGER [address] [address] 02/01/2025 12:20 PM EDT [facility] [address] [place] [phone] Neena Fields, DIVISIONAL MERCHANDISING MANAGER [address] [facility] [address] [place] [address] 04/24/2025 8:45 AM EDT Office Visit [facility] [address] [place] [address] Rosa Houston S, OD [address] [place] [address] documented as of this encounter Visit Diagnoses Diagnosis Vitamin D deficiency documented in this encounter Additional Health Concerns Assessment Noted Time A fall risk assessment has been complete d for the patient 2023 10:33 AM EST A Body Mass Index follow-up plan has been documented for the patient 2023 12:25 PM EST documented as of this encounter Care Teams Documentation Consultant Relationship Specialty Start Date End Date Alfredo Aguiar MD [address] [place] [address] PCP - General 12/14/20 documented as of this encounter
--- OUTSIDE RECORDS SUMMARY | 2025-01-23 15:56 | XMS_ITS | Encounter Summary ---
Author Organization [employer] Address [address] [place] [address] Care Team Providers Care Crew Attendant Name Role Phone Alfredo Aguiar MD Primary Care Provider + [phone] Alfredo Aguiar MD Primary Care Provider + [phone] Encounter Details Date Type Department Care Team (Late st Contact Info) Description 08/18/2019 Transcribed Document [facility] [place] [facility] [place] [address] ProviderEryn MD [address] [place], [place] [id number] Social History Tobacco Use Types Packs/Day Years Used Date Smoking Tobacco: Never Assessed Sex and Gender Information Value Date Recorded Sex Assigned at Not on file Legal Sex Male 5:45 PM CDT Gender Identity Not on file Sexual Orientation Not on file documented as of this encounter Miscellaneous Notes * Cerner Conversion Note - Eryn ProviderMD - 08/18/2019 1:35 PM HEAD MVA REACTOR OPERATOR Treatment Intervention, OT Entered On: 08/19/2019 11:54 EST Performed On: 08/19/2019 10:22 EST by BRANDY MATHEW COTA General Information, OT Visit Type, OT : Treatment Note BRANDY MATHEW COTA - 08/19/2019 11:52 EST Patient Orders : Order Date Order Ordering 08/17/2019 18:36 OT Evaluation and Treatment Ordered By: LION DAVIS MD-ORElizabeth 08/17/2019 18:36 OT Treatment Instructions Ordered By: LION DAVIS MD-ORT 08/18/2019 13:35 OT Additional Treatment Ordered By: Active Diagnoses : 08/18/2019 12:00 Presence of unspecified artificial knee joint BRANDY MATHEW MADIE - 08/19/2019 12:08 EST Therapy Diagnosis, OT : Decreased independence with ADL's BRANDY MATHEW MADIE - 08/19/2019 11:52 EST Admission Date : 08/17/2019 07:12 BRANDY MATHEW MADIE - 08/19/2019 12:08 EST Co-treated by, OT : night assistant (DOCTOR NATUROPATHIC) BRANDY MATHEWMADIE - 08/19/2019 11:52 EST Personal Devices : Personal Devices No Devices Recorded Assistive Devices : Assistive Devices No Devices Recorded BRANDY MATHEW MADIE [place] 08/19/2019 12:[address] : Fall prevention measures BRANDY MATHEW MADIE [place] 08/19/2019 11:52 EST General Status Patient Received Status : Supine in bed Treatment Start Time : 08/19/2019 9:38 EST Patient Left Status : Up in chair, RN/PCT informed, Family/Visitors at bedside, All needs met and within reach Treatment End Time : 08/19/2019 10:22 EST Treatment Time : 44 Minute(s) BRANDY MATHEWMADIE - 08/19/2019 11:52 EST Functional Mobility Mobility Grid Bed Roll Left : Supervision/set-up Bed Scooting : Rehab Minimal assistance Supine to Sit : Rehab Minimal assistance Sit to Stand : Rehab Minimal assistance PRIYANKABRANDYMADIE - 08/19/2019 11:52 EST Plan of Care, OT OT Tx Plan/Goals Established w Patient : Yes BRANDY MATHEWMADIE - 08/19/2019 11:52 EST Special Agent [employer] Goals, OT Grooming LTG Grid Goal #1 Activity : Grooming Assist : Independent, modified Date to Meet : 09/01/2019 EST Goal Status : Initial goal NIELS MATHEWAHMADIE 08/19/2019 11:52 EST Bathing LTG Grid Goal #1 Activity : Bathing Assist : Supervision or set up Date to Meet : 09/01/2019 EST Goal Status : Progressing, continue BRANDY MATHEW COTA - 08/19/2019 11:52 EST Dressing, Lower Body LTG Grid Goal #1 Goal #2 Activity : Dressing, Lower Body Assist : Supervision or set up Date to Meet : 09/01/2019 EST Goal Status : Initial goal Progressing, continue BRANDY MATHEW COTA - 08/19/2019 11:52 EST BRANDY MATHEW COTA - 08/19/2019 11:52 EST Toilet Transfer LTG Grid Goal #1 Activity : Toilet Transfer, Ambulatory Assist : Supervision or set up Date to Meet : 09/01/2019 EST Goal Status : Progressing, continue BRANDY MATHEW COTA - 08/19/2019 11:52 EST Treatment Note Subjective Comment : Client agreed to session Patient's Response to Treatment : Dontrell well. Motivated to improve Additional Objective Information : Client was supine in bed. FAmily present. Used leg information assurance engineer to get to EOB. SUP. Client stood with gaitbelt and RW at MIN A. Ambulate functional distance with chair follow. Had seated RB and was taken down to gym. Transfer to mat at MIN A. Participated in BLE ROM with PT. Client was ed on AE including a psychological operations officer, sock aide, shoe horn and LHS. Client taken back to room. Up to recliner. CL in place. Joint life coach present during all of session Assessment : progressing with goals Plan for Treatment : cotninue with POC BRANDY MATHEW COTA - 08/19/2019 12:08 EST Pain Assessment Pain Scaled Used : 0-10 Pain scale Pain Score Pre-Intervention : 0 BRANDY MATHEW COTA - 08/19/2019 11:52 EST Image 1 - Images currently included in the form version of this document have not been included in the text rendition version of the form. Anticipated Discharge Needs, OT/PT Anticipated Discharge to : Unit, rehabilitation BRANDY MATHEW COTA - 08/19/2019 11:52 EST [place] OT Charges RAMACHANDRAN OT Selfcare/Hm Mgmt Ea 15 Min-RAMACHANDRAN : 1 OT Ther Activities Ea 15 Min-RAMACHANDRAN : 2 BRANDY MATHEW COTA - 08/19/2019 11:52 EST Electronically signed by [facility] Conversion Country Sales Manager Cerner at 11/18/2022 9:15 AM CDT documented in this encounter Plan of Treatment Not on file documented as of this encounter Visit Diagnoses Not on filedocumented in this encounter Care Teams Crew Attendant Relationship Specialty Start Date End Date Alfredo Aguiar MD [address] [place] [address] PCP - General Adolescent Medicine 10/16/22 10/19/22 Alfredo Aguiar MD [address] [place] [address] PCP - General Adolescent Medicine 10/20/22 documented as of this encounter
--- OUTSIDE RECORDS SUMMARY | 2025-01-23 15:56 | XMS_ITS | Encounter Summary ---
Author Organization [employer] Address [address] [place] [address] Care Team Providers Care Amplifier Mechanic Name Role Phone Alfredo Aguiar MD Primary Care Provider + [phone] Alfredo Aguiar MD Primary Care Provider + [phone] Encounter Details Date Type Department Care Team (Late st Contact Info) Description 05/21/2019 Transcribed Document [facility] [address] [place] [address] Lion Allison MD [address] [place] [address] Social History Tobacco Use Types Packs/Day Years Used Date Smoking Tobacco: Never Assessed Sex and Gender Information Value Date Recorded Sex Assigned at Not on file Legal Sex Male 5:45 PM CDT Gender Identity Not on file Sexual Orientation Not on file documented as of this encounter Miscellaneous Notes * Cerner Conversion Note - Lion Allison MD - 05/21/2019 9:17 AM EDT Patient: LORA JAIN JR Age: 78 years Sex: Male : 1940 Associated Diagnoses: None Author: LION ALLISON MD-ORT [facility] Ortho Progress Note SUBJECTIVE No events. Pain controlled. Has not been OOB w/ PT EXAM Vitals Signs (last 24 hrs) Last Charted Minimum Maximum Temp 97.8 (MAY 21 05:33) 97.8 (MAY 21 05:33) 98.9 (MAY 18 16:55) Mon HR 92 (MAY 21 05:33) 61 (MAY 18 17:50) 92 (MAY 21 05:33) Periph HR 76 (MAY 18 11:23) 76 (OCT 18 11:23) 76 (OCT 18 11:23) Resp Rate 18 (MAY 21 05:33) L 4 (MAY 20 18:05) H 38 (MAY 18 17:35) SBP 126 (MAY 21 05:33) L 74 (OCT 18 17:10) 130 (OCT 18 11:23) DBP 65 (MAY 21 05:33) L 47 (MAY 18 17:05) 70 (OCT 18 10:39) MAP 77 (MAY 21 05:33) 56 (OCT 18 17:10) 85 (MAY 18 17:55) SpO2 99 (MAY 21 05:33) L 93 (MAY 18 18:50) 100 (MAY 18 10:39) L knee wound dry KI in place. NV intact neg Judd's Drain: 300 cc LABS: MAY 21 03:20 L 134 L 98 21 / H 305 4.3 27 1.30 \ MAY 21 03:20 \ L 8.0 / 9.5 H 454 / L 25.5 \ OR Cx pending Asp L knee 04/21/19: Strep mutans, pansensitive Assessment: POD 1 explant/spacer L TKA Plan: 1. PT, TDWB, no ROM 2. ID consult pending. Empiric Vanc/Rocephin for now 3. SQ heparin 4. uncontrolled DM. SSI. Mgt per medicine. 5. Will need SNF at d/c, likely Mon. documented in this encounter Plan of Treatment Not on file documented as of this encounter Visit Diagnoses Not on filedocumented in this encounter Care Teams Amplifier Mechanic Relationship Specialty Start Date End Date Alfredo Aguiar MD [address] [place] [id number] PCP - General Adolescent Medicine 10/16/22 10/19/22 Alfredo Aguiar MD [address] [place] [address] PCP - General Adolescent Medicine 10/20/22 documented as of this encounter
--- OUTSIDE RECORDS SUMMARY | 2025-01-23 15:56 | XMS_ITS | Encounter Summary ---
Author Organization [employer] Address [address] [place] [address] Care Team Providers Care Printing Supplies Sales Representative Name Role Phone Alfredo Aguiar MD Primary Care Provider + [phone] Alfredo Aguiar MD Primary Care Provider + [phone] Encounter Details Date Type Department Care Team (Late st Contact Info) Description 08/18/2019 Transcribed Document [facility] [place] [address] ProviderEryn MD [address] [place] [id number] Social History Tobacco Use Types Packs/Day Years Used Date Smoking Tobacco: Never Assessed Sex and Gender Information Value Date Recorded Sex Assigned at Not on file Legal Sex Male 5:45 PM CDT Gender Identity Not on file Sexual Orientation Not on file documented as of this encounter Miscellaneous Notes * Cerner Conversion Note - Eryn ProviderMD - 08/18/2019 11:53 AM [employer]INCHILLA FARMER Treatment Intervention, PT Entered On: 08/18/2019 15:16 EST Performed On: 08/18/2019 15:09 EST by SHARON WALTON PTA General Information, PT Visit Type, PT : Treatment Note Patient Orders : Order Date Order Ordering 08/17/2019 18:36 PT Evaluation and Treatment Ordered By: LION DAVIS MD-ORT 08/17/2019 18:36 PT Treatment Instructions Ordered By: LION DAVIS MD-ORT 08/17/2019 18:36 PT Treatment Instructions Ordered By: LION DAVIS MD-ORT 08/17/2019 18:36 PT Treatment Instructions Ordered By: LION DAVIS MD-ORT 08/17/2019 18:36 PT Treatment Instructions Ordered By: LION DAVIS MD-ORElizabeth 08/18/2019 11:53 PT Additional Treatment Ordered By: DELMIS ATKINS, PT Active Diagnoses : 08/18/2019 12:00 Presence of unspecified artificial knee joint Therapy Diagnosis, PT : Aftercare following L TKA revision-reimplant Admission Date : 08/17/2019 07:12 Assisted by, PT : radiologic technology instructor/aide Personal Devices : Personal Devices No Devices Recorded Assistive Devices : Assistive Devices No Devices Recorded Precautions in Place : Fall prevention measures SHARON WALTON PTA - 08/18/2019 15:09 EST General Status Patient Received Status : Up in chair Treatment Start Time : 08/18/2019 13:39 EST Patient Left Status : Supine in bed, All needs met and within reach RN/PCT Informed Comment : ELICEO miller'd to treat. Treatment End Time : 08/18/2019 14:03 EST Treatment Time : 24 Minute(s) SHARON WALTON PTA 08/18/2019 15:09 EST Functional Mobility Mobility Grid Sit to Stand : Rehab Moderate assistance (Comment: x2 [SHARON WALTON PTA 08/18/2019 15:09 EST] ) Stand to Sit : Rehab Moderate assistance (Comment: x2 [SHARON WALTON PTA 08/18/2019 15:09 EST] ) Sit to Supine : Rehab Minimal assistance SHARON WALTON PTA 08/18/2019 15:09 EST Bed Comment : verbal cues for proper transfer techniques and hand placement ; patient had difficulty backing up to bed to have a seat SHARON WALTON PTA - 08/18/2019 15:09 EST Gait Training/Assessment, PT Weight Bearing Status Maintained : Yes Weight Bearing Status : As tolerated left lower extremity Gait Assistance Level : Assist, minimal Walking Distance : 80ft. assist x2 and chair follow Ambulatory Devices : Gait belt, Walker, front wheel Gait Deviations : Yes Left Lower Gait Deviation : Other: foot drop Gait Training Comment : patient was cued for proper gait sequence and for slowing down and taking his timewith each step; patient had three episodes on left knee buckling ; patient states his foot is still numband is unable to DF his left foot SHARON WALTON PTA - 08/18/2019 15:09 EST Cognitive Treatment, PT Orientation : Oriented x 4 SHARON WALTON, [facility] 08/18/2019 15:09 EST Edu Topics Physical Therapy Education Grid Gait Training : Returns demonstration, Needs further teaching Role of Physical Therapy : Returns demonstration Therapeutic Exercises : Returns demonstration, Needs further teaching Transfer Training : Returns demonstration, Needs further teaching SHARON WALTON, [facility] 08/18/2019 15:09 EST Indication Assesessment, PT Physical Therapy Indicated : Yes SHARON WALTON [facility] 08/18/2019 15:09 EST Plan of Care, PT PT Tx Plan/Goals Established w Patient : Yes SHARON WALTON [facility] 08/18/2019 15:09 EST Dairy Farm Operator Goals Mobility/Bed Mobility LTG PT Grid Goal #1 Activity : Sit to stand Assist : Supervision or set-up Equipment : Walker, front wheel Date to Meet : 09/01/2019 EST Goal Status : Progressing, continue SHARON WALTON [facility] - 08/18/2019 15:09 EST Transfer LTG Grid Goal #1 Destination : Chair, with arms Type : Stand Pivot Sit Assist : Supervision or set-up Equipment : Walker, front wheel Date to Meet : 09/01/2019 EST Goal Status : Intial Goal SHARON WALTON [facility] 08/18/2019 15:09 EST Ambulation LTG Grid Goal #1 Device : Walker, front wheel Distance : 75ft Assist : Supervision or set-up Date to Meet : 09/01/2019 EST Goal Status : Progressing, continue SHARON WALTON [facility] 08/18/2019 15:09 EST Treatment Note Subjective Comment : Patient agrees to treat and states his foot is still numb Additional Objective Information : reviewed HEP with patient and was educated on performing 3 times a day AROM was 0 - 85 Assessment : Patient has improved amb this pm session however continues to have 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 ANTON SHARON [facility] 08/18/2019 15:09 EST Pain Assessment Pain Scaled Used : 0-10 Pain scale Pain Score Post-Intervention. : 2 Location : Knee, left SHARON WALTON, [facility] - 08/18/2019 15:09 EST Image 1 - Images currently included in the form version of this document have not been included in the text rendition version of the form. Anticipated Discharge Needs, OT/PT Anticipated Discharge to : Unit, rehabilitation ANTON SHARON, MERCHANDISER RETAIL REPRESENTATIVE - 08/18/2019 15:09 EST [place] PT Charges MERCHANDISER RETAIL REPRESENTATIVE PT Therap. Exercise 15 min-MERCHANDISER RETAIL REPRESENTATIVE : 1 Gait Training Each 15 Min-MERCHANDISER RETAIL REPRESENTATIVE : 1 ANTON SHARON, MERCHANDISER RETAIL REPRESENTATIVE - 08/18/2019 15:09 EST Electronically signed by [place], [facility] Conversion Knocker Out Cerner at 11/23/2022 1:10 PM CDT documented in this encounter Plan of Treatment Not on file documented as of this encounter Visit Diagnoses Not on filedocumented in this encounter Care Teams Printing Supplies Sales Representative Relationship Specialty Start Date End Date Alfredo Aguiar MD [address] [place] [address] PCP - General Adolescent Medicine 10/16/22 10/19/22 Alfredo Aguiar MD [address] [place] [address] PCP - General Adolescent Medicine 10/20/22 documented as of this encounter
--- OUTSIDE RECORDS SUMMARY | 2025-01-23 15:56 | XMS_ITS | Encounter Summary ---
Author Organization [employer] Address [address] [place] [address] Care Team Providers Care Machine Puller And Laster Name Role Phone Alfredo Aguiar MD Primary Care Provider + [phone] Alfredo Aguiar MD Primary Care Provider + [phone] Encounter Details Date Type Department Care Team (Late st Contact Info) Description 08/20/2019 Transcribed Document [facility] [place] [facility] [place] [address] ProviderEryn MD [address] [place], [place] [id number] Social History Tobacco Use Types Packs/Day Years Used Date Smoking Tobacco: Never Assessed Sex and Gender Information Value Date Recorded Sex Assigned at Not on file Legal Sex Male 5:45 PM CDT Gender Identity Not on file Sexual Orientation Not on file documented as of this encounter Miscellaneous Notes * Cerner Conversion Note - Eryn ProviderMD - 08/20/2019 12:28 PM DESK REPORTER Stroke/Warfarin Instructions Entered On: 08/20/2019 12:28 EST Performed On: 08/20/2019 12:28 EST by KASSANDRA MEADOWS LPN Stroke/Warfarin Instructions Stroke/TIA Discharge Ins : N/A Warfarin Discharge Ins : N/A KASSANDRA MEADOWS LPN - 08/20/2019 12:28 EST documented in this encounter Plan of Treatment Not on file documented as of this encounter Visit Diagnoses Not on filedocumented in this encounter Care Teams Machine Puller And Laster Relationship Specialty Start Date End Date Alfredo Aguiar MD [address] [place] [address] PCP - General Adolescent Medicine 10/16/22 10/19/22 Alfredo Aguiar MD [address] [place] [address] PCP - General Adolescent Medicine 10/20/22 documented as of this encounter
--- OUTSIDE RECORDS SUMMARY | 2025-01-23 15:56 | XMS_ITS | Encounter Summary ---
Author Organization [employer] Address [address] [place] [address] Care Team Providers Care Behavior Interventionist Name Role Phone Alfredo Aguiar MD Primary Care Provider + [phone] Alfredo Aguiar MD Primary Care Provider + [phone] Encounter Details Date Type Department Care Team (Late st Contact Info) Description 08/19/2019 Transcribed Document [facility] [place] [facility] [place] [address] ProviderEryn MD [address] [place] [id number] Social History Tobacco Use Types Packs/Day Years Used Date Smoking Tobacco: Never Assessed Sex and Gender Information Value Date Recorded Sex Assigned at Not on file Legal Sex Male 5:45 PM CDT Gender Identity Not on file Sexual Orientation Not on file documented as of this encounter Miscellaneous Notes * Cerner Conversion Note - Eryn ProviderMD - 08/19/2019 1:40 PM CPO Treatment Intervention, PT Entered On: 08/19/2019 13:47 EST Performed On: 08/19/2019 13:40 EST by SHARON WALTON PTA General Information, PT Visit Type, PT : Treatment Note Patient Orders : Order Date Order Ordering 08/17/2019 18:36 PT Evaluation and Treatment Ordered By: LION DAVIS MD-ORT 08/17/2019 18:36 PT Treatment Instructions Ordered By: LION DAVIS MD-ORT 08/17/2019 18:36 PT Treatment Instructions Ordered By: LION DAVIS MD-ORT 08/17/2019 18:36 PT Treatment Instructions Ordered By: LION DAVIS MD-ORElizabeth 08/17/2019 18:36 PT Treatment Instructions Ordered By: LION DAVIS MD-ORElizabeth 08/18/2019 11:53 PT Additional Treatment Ordered By: DELMIS ATKINS, PT Active Diagnoses : 08/18/2019 12:00 Presence of unspecified artificial knee joint Therapy Diagnosis, PT : Aftercare following L TKA revision-reimplant Admission Date : 08/17/2019 07:12 Assisted by, PT : maintenance technician/aide Personal Devices : Personal Devices No Devices Recorded Assistive Devices : Assistive Devices No Devices Recorded Precautions in Place : Fall prevention measures SHARON WALTON [facility] 08/19/2019 13:40 EST General Status Patient Received Status : Supine in bed Treatment Start Time : 08/19/2019 13:07 EST Patient Left Status : Supine in bed, All needs met and within reach RN/PCT Informed Comment : ELICEO miller'd to treat. Treatment End Time : 08/19/2019 13:19 EST Treatment Time : 12 Minute(s) SHARON WALTON PTA 08/19/2019 13:40 EST Functional Mobility Mobility Grid Supine to Sit : Supervision/set-up (Comment: using leg riveter portable machine [SHARON WALTON PTA 08/19/2019 13:40 EST] ) Sit to Stand : Rehab Minimal assistance (Comment: x2 [SHARON WALTON [facility] 08/19/2019 13:40 EST] ) Stand to Sit : Rehab Minimal assistance (Comment: x2 [SHARON WALTON PTA 08/19/2019 13:40 EST] ) Sit to Supine : Supervision/set-up SHARON WALTON [facility] 08/19/2019 13:40 EST Bed Comment : patient was cued for kicking LLE out before sitting/ standing SHARON WALTON PTA 08/19/2019 13:40 EST Gait Training/Assessment, PT Weight Bearing Status Maintained : Yes Weight Bearing Status : As tolerated left lower extremity Gait Assistance Level : Assist, minimal Walking Distance : 46ft sitting rest break then 46ft back ; WC follow Ambulatory Devices : Gait belt, Walker, front wheel Gait Deviations : Yes Left Lower Gait Deviation : Weight bearing, decreased Right Lower Gait Deviation : Step length, decreased, Other: patient using comes up on his toes to advance LLE Gait Training Comment : Patient was cued for bending Left knee and hip to advance LLE but was unable to do so; keeping LLE straight throughout gait; verbal cues for keeping his walker close to him SHARON WALTON, SCHOOL HEALTH AIDE - 08/19/2019 13:40 EST Cognitive Treatment, PT Orientation : Oriented x 4 SHARON WALTON PTA - 08/19/2019 13:40 EST Edu Topics Physical Therapy Education Grid Gait Training : Returns demonstration, Needs further teaching Role of Physical Therapy : Returns demonstration Transfer Training : Returns demonstration, Needs further teaching SHARON WALTON PTA - 08/19/2019 13:40 EST Indication Assesessment, PT Physical Therapy Indicated : Yes SHARON WALTON PTA - 08/19/2019 13:40 EST Plan of Care, PT PT Tx Plan/Goals Established w Patient : Yes SHARON WALTON PTA - 08/19/2019 13:40 EST [facility] Goals Mobility/Bed Mobility LTG PT Grid Goal #1 Activity : Sit to stand Assist : Supervision or set-up Equipment : Walker, front wheel Date to Meet : 09/01/2019 EST Goal Status : Progressing, continue SHARON WALTON PTA - 08/19/2019 13:40 EST Transfer LTG Grid Goal #1 Destination : Chair, with arms Type : Stand Pivot Sit Assist : Supervision or set-up Equipment : Walker, front wheel Date to Meet : 09/01/2019 EST Goal Status : Intial Goal SHARON WALTON PTA - 08/19/2019 13:40 EST Ambulation LTG Grid Goal #1 Device : Walker, front wheel Distance : 75ft Assist : Supervision or set-up Date to Meet : 09/01/2019 EST Goal Status : Progressing, continue SHARON WALTON PTA - 08/19/2019 13:40 EST Treatment Note Subjective Comment : Patient agrees to treat Additional Objective Information : AAROM left knee was 0 to 78 Assessment : Patient would benefit from rehab placement to improve LLE strength and progress therapy as tolerated Plan for Treatment : Continue per POC. SHARON WALTON PTA - 08/19/2019 13:40 EST Pain Assessment Pain Comment : patient states his knee is a little sore SHARON WALTON PTA - 08/19/2019 13:40 EST Image 1 - Images currently included in the form version of this document have not been included in the text rendition version of the form. Anticipated Discharge Needs, OT/PT Anticipated Discharge to : Unit, rehabilitation SHARON WALTON, SCHOOL HEALTH AIDE - 08/19/2019 13:40 EST [place] PT Charges SCHOOL HEALTH AIDE PT Therap. Exercise 15 min-SCHOOL HEALTH AIDE : 1 SHARON WALTON, SCHOOL HEALTH AIDE - 08/19/2019 13:40 EST Electronically signed by [place], [facility] Conversion Inhalation Therapy Aides Teacher Cerner at 11/18/2022 9:41 AM CDT documented in this encounter Plan of Treatment Not on file documented as of this encounter Visit Diagnoses Not on filedocumented in this encounter Care Teams Behavior Interventionist Relationship Specialty Start Date End Date Alfredo Aguiar MD [address] [place] [address] PCP - General Adolescent Medicine 10/16/22 10/19/22 Alfredo Aguiar MD [address] [place] [address] PCP - General Adolescent Medicine 10/20/22 documented as of this encounter
--- OUTSIDE RECORDS SUMMARY | 2025-01-23 15:56 | XMS_ITS | Encounter Summary ---
Author Organization [employer] Address [address] [place] [address] Care Team Providers Care Tank Insulator Rubber Name Role Phone Alfredo Aguiar MD Primary Care Provider + [phone] Alfredo Aguiar MD Primary Care Provider + [phone] Encounter Details Date Type Department Care Team (Late st Contact Info) Description 05/22/2019 Transcribed Document [facility] [address] [place] [address] Lion Allison MD [address] [place] [address] Social History Tobacco Use Types Packs/Day Years Used Date Smoking Tobacco: Never Assessed Sex and Gender Information Value Date Recorded Sex Assigned at Not on file Legal Sex Male 5:45 PM CDT Gender Identity Not on file Sexual Orientation Not on file documented as of this encounter Miscellaneous Notes * Cerner Conversion Note - Lion Allison MD - 05/22/2019 10:12 AM EDT Patient: LORA JAIN JR Age: 78 years Sex: Male : 1940 Associated Diagnoses: None Author: LION ALLISON MD-ORT [facility] Ortho Progress Note SUBJECTIVE No events overnight. OOB w/ PT, ambulated to bathroom EXAM Vitals Signs (last 24 hrs) Last Charted Minimum Maximum Temp 98 (MAY 22 06:58) 97.8 (MAY 21 17:20) 98 (MAY 22 06:58) Mon HR 104 (MAY 22 08:27) 81 (MAY 22 06:58) 106 (MAY 22 08:24) Resp Rate 16 (MAY 22 06:58) 16 (MAY 21 17:20) 16 (MAY 21 17:20) SBP 108 (MAY 22 06:58) 102 (MAY 21 17:20) 122 (MAY 21 10:08) DBP L 46 (MAY 22 06:58) L 42 (MAY 21 10:08) H 96 (MAY 21 23:30) MAP 61 (MAY 22 06:58) 56 (MAY 21 10:08) 101 (MAY 21 23:30) SpO2 96 (MAY 22 08:24) 96 (MAY 22 08:24) 100 (MAY 21 10:08) L knee wound dry KI in place NV intact neg Judd's Drain: 165 LABS: MAY 22 03:35 L 131 L 96 H 24 / H 415 4.5 L 19 H 1.50 \ MAY 22 03:35 \ L 7.9 / H 11.5 H 462 / L 24.4 \ OR Cx: all prelim neg Assessment: POD 2 explant/spacer L TKA Plan: 1. PT, TDWB, no ROM 2. ID following. Currently on Rocephin only. PICC tomorrow. Asp Cx on chart. 3. SQ heparin 4. DM-- glucose elevated, SSI in addition to home regimen 5. Dispo-- will need SNF, [place] for d/c tomorrow from our standpoint documented in this encounter Plan of Treatment Not on file documented as of this encounter Visit Diagnoses Not on filedocumented in this encounter Care Teams Tank Insulator Rubber Relationship Specialty Start Date End Date Alfredo Aguiar MD [address] [place] [address] PCP - General Adolescent Medicine 10/16/22 10/19/22 Alfredo Aguiar MD [address] [place] [address] PCP - General Adolescent Medicine 10/20/22 documented as of this encounter
--- OUTSIDE RECORDS SUMMARY | 2025-01-23 15:56 | XMS_ITS | Encounter Summary ---
Author Organization [employer] Address [address] [facility] [place] [address] Care Team Providers Care Produce Inspector Name Role Phone Alfredo Aguiar MD Primary Care Provider + [phone] Alfredo Aguiar MD Primary Care Provider + [phone] Encounter Details Date Type Department Care Team (Late st Contact Info) Description 05/21/2019 Transcribed Document [facility] [place] [facility] [address] Eryn Arcos MD [address] [place] [id number] Social History Tobacco Use Types Packs/Day Years Used Date Smoking Tobacco: Never Assessed Sex and Gender Information Value Date Recorded Sex Assigned at Not on file Legal Sex Male 5:45 PM CDT Gender Identity Not on file Sexual Orientation Not on file documented as of this encounter Miscellaneous Notes * Cerner Conversion Note - Eryn Arcos MD - 05/21/2019 5:55 PM CDT Patient: LORA JAIN JR Age: 78 years Sex: Male : 1940 Associated Diagnoses: 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 Lopez covering for Basic Information awake alert comfortable, ???Complaining of pain in his left knee ???On antibiotics per infectious disease ???Patient requested to start on probiotics ???Has trouble sleeping ???Ambien already ordered by primary team Review of Systems Constitutional: No fever, No [...] Known Allergies None Documented Current medications: Medications (36) Active Scheduled: (17) #NaCl 0.9% *FLUSH* inj 10 mL 10 mL, IV Push, Q12H acetaminophen 500 mg tab 1,000 mg 2 Tab, Oral, Q6H bisoprolol 5 mg tab 5 mg 1 Tab, Oral, Daily cefTRIAXone 2 Gram, IV Piggyback, [id number] docusate sodium 100 mg cap 100 mg 1 Cap, Oral, Daily docusate sodium 100 mg cap 100 mg [...] 0.9% 100 mL 100 mL, IntraVENous PRN: (18) #NaCl 0.9% *FLUSH* inj 10 mL 10 mL, IV Push, See Comment bisacodyl 10 mg supp 10 mg 1 Supp, Rectal, BID bisacodyl 10 mg supp 10 mg 1 Supp, Rectal, 1-Time Cepacol Max Dow lozenge 1 Lozenge, Oral, Q2H cloNIDine 0.2 mg tab 0.2 mg 1 Tab, Oral, Q4H diphenhydrAMINE 25 mg tab 25 mg 1 Tab, Oral, Q4H hydrALAZINE 20 mg/1 mL inj 10 mg 0.5 mL, IV Push, Q6H HYDROmorphone 1 mg/1 mL inj 0.4 mg 0.4 mL, IV Push, Q3H magnesium hydroxide 8% liq 30 mL 30 mL, Oral, TID naloxone 0.4 mg/1 mL inj 0.1 mg 0.25 mL, IV Push, Q5Min ondansetron 4 mg tab 4 mg 1 Tab, Oral, Q4H ondansetron 4 mg/2 mL inj 4 mg 2 mL, IV Push, Q4H oxyCODONE 5 mg tab 5 mg 1 Tab, Oral, Q4H oxyCODONE 5 mg tab 10 mg 2 Tab, Oral, Q4H petrolatum 100% oint 28 g 1 Application, Topical, Daily promethazine 25 mg/1 mL inj 12.5 mg 0.5 mL, IV Push, Q6H simethicone 80 mg chew tab 80 mg 1 Tab, Oral, Q6H zolpidem 5 mg tab 5 mg 1 Tab, Oral, At Bedtime Problem list: Active Problems (22) Anemia Arthritis [...] apnea (cpap) Physical Examination VS/Measurements Vital Measurements 05/21/2019 17:20 EDT Systolic Blood Pressure 102 mmHg Diastolic Blood Pressure 42 mmHg LOW Mean Arterial Pressure (MAP)-BMDI 57 Temperature Source Oral Temperature Mode Fahrenheit Temperature, Fahrenheit 97.8 Deg F Clinical Temperature, C 36.6 Deg C Heart Rate Monitored 85 bpm Respiratory Rate 16 Breaths/Min Oxygen Saturation 99 % Oxygen Therapy Mode Room air General: Alert and oriented, No acute distress. [...] Review / Management Results review: All Results 05/21/2019 3:20 EDT Sodium Level 134 mmol/L [...] % LOW Lymph # 0.36 x10(3)/uL LOW [place] % 8.3 % [place] # 0.79 K/uL Eos % 0.0 % Eos # 0.00 x10(3)/uL Baso % 0.2 % Baso # 0.02 x10(3)/uL Slide Review No IG# 0.08 x10(3)/uL HI IG% 0.80 % HI . Condition: Stable. 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 Uncontrolled diabetes mellitus - Admitting, Medical. Hypertension affecting - Admitting, Medical. Asthma - Admitting, Medical. CA - Cancer of prostate (hx of) - Admitting, Medical. GERD - Gastro-esophageal reflux disease (occasional) - Admitting, Medical. Course: Plan/ cont. current care, pt/ot, encourage oral fluid intake, nutritional support, encourage use of respirometer, motoring blood pressure, renal function, blood glucose, and urine output. -We'll start patient on Florastor -Continue on antibiotics was Rocephin as recommended by infectious disease -Pain control -DVT prophylaxis -Close monitoring fluid and electrolytes -When necessary nebs -Fall risk precautions -Sleep apnea precautions -Stress ulcer prophylaxis. documented in this encounter Plan of Treatment Not on file documented as of this encounter Visit Diagnoses Not on filedocumented in this encounter Care Teams Produce Inspector Relationship Specialty Start Date End Date Alfredo Aguiar MD [address] [place] [address] PCP - General Adolescent Medicine 10/16/22 10/19/22 Alfredo Aguiar MD [address] [place] [address] PCP - General Adolescent Medicine 10/20/22 documented as of this encounter
--- OUTSIDE RECORDS SUMMARY | 2025-01-23 15:56 | XMS_ITS | Encounter Summary ---
Author Organization [employer] Address [address] [place] [address] Care Team Providers Care Repairer Art Objects Name Role Phone Alfredo Aguiar MD Primary Care Provider + [phone] Alfredo Aguiar MD Primary Care Provider + [phone] Encounter Details Date Type Department Care Team (Late st Contact Info) Description 05/23/2019 Transcribed Document [facility] [place] [facility] [address] ProviderErny MD [address] [place] [id number] Social History Tobacco Use Types Packs/Day Years Used Date Smoking Tobacco: Never Assessed Sex and Gender Information Value Date Recorded Sex Assigned at Not on file Legal Sex Male 5:45 PM CDT Gender Identity Not on file Sexual Orientation Not on file documented as of this encounter Miscellaneous Notes * Cerner Conversion Note - Eryn Arcos MD - 05/23/2019 3:40 PM CDT Nursing Discharge Summary Entered On: 05/23/2019 15:41 EDT Performed On: 05/23/2019 15:40 EDT by ADITYA CRUMP retrimmer Documentation Discharge Date/Time : 05/23/2019 16:15 EDT Patient Disposition, General : Discharge Discharge To : Rehabilitation unit/facility Mode Of Departure, General Discharge : Wheelchair with adult Accompanied By, Discharge : Daughter IV Discontinued : Yes Personal Belongings With Patient : Yes Prescriptions Given to Patient : Yes Discharge Instructions Reviewed With, Opportunity For Questions Given : Daughter Patient Education Completed : Yes Teaching Method : Explanation, Printed materials Nurse Report w/Opportunity for Questions : Called Discharge, Comment : called report to sam at [address] [facility] re[facility]ADITYA Izquierdo RN - 05/23/2019 15:40 EDT documented in this encounter Plan of Treatment Not on file documented as of this encounter Visit Diagnoses Not on filedocumented in this encounter Care Teams Repairer Art Objects Relationship Specialty Start Date End Date Alfredo Aguiar MD [address] [place] [address] PCP - General Adolescent Medicine 10/16/22 10/19/22 Alfredo Aguiar MD [address] [place] [address] PCP - General Adolescent Medicine 10/20/22 documented as of this encounter
--- OUTSIDE RECORDS SUMMARY | 2025-01-23 15:56 | XMS_ITS | Encounter Summary ---
Author Organization [employer] Address [address] [place] [address] Care Team Providers Care First Line Production Supervisor Name Role Phone Alfredo Aguiar MD Primary Care Provider + [phone] Alfredo Aguiar MD Primary Care Provider + [phone] Encounter Details Date Type Department Care Team (Late st Contact Info) Description 05/22/2019 Transcribed Document [facility] [place] Family Medicine [address] [place] [address] ProviderEryn MD [address] [place], [place] [id number] Social History Tobacco Use Types Packs/Day Years Used Date Smoking Tobacco: Never Assessed Sex and Gender Information Value Date Recorded Sex Assigned at Not on file Legal Sex Male 5:45 PM CDT Gender Identity Not on file Sexual Orientation Not on file documented as of this encounter Miscellaneous Notes * Cerner Conversion Note - Eryn Arcos MD - 05/22/2019 4:20 PM CDT Event Note Entered On: 05/22/2019 16:21 EDT Performed On: 05/22/2019 16:20 EDT by Marcelina Bojorquez RN Event Note Event Date/Time : 05/22/2019 13:00 EDT Event Location : Assigned room Description of Event : Rechecked blood sugar after meal continues to be elevated on blood sugar. Blood in process will start when available. will continue to keep md informed. Marcelina Bojorquez, RN - 05/22/2019 16:20 EDT Electronically signed by [facility] Conversion Finance Intern Cerner at 11/18/2022 9:20 AM CDT documented in this encounter Plan of Treatment Not on file documented as of this encounter Visit Diagnoses Not on filedocumented in this encounter Care Teams First Line Production Supervisor Relationship Specialty Start Date End Date Alfredo Aguiar MD [address] [place] [address] PCP - General Adolescent Medicine 10/16/22 10/19/22 Alfredo Aguiar MD [address] [place] [address] PCP - General Adolescent Medicine 10/20/22 documented as of this encounter
--- OUTSIDE RECORDS SUMMARY | 2025-01-23 15:56 | XMS_ITS | Encounter Summary ---
Author Organization [employer] Address [address] [place] [address] Care Team Providers Care Blender Conveyor Operator Name Role Phone Alfredo Aguiar MD Primary Care Provider + [phone] Alfredo Aguiar MD Primary Care Provider + [phone] Encounter Details Date Type Department Care Team (Late st Contact Info) Description 05/21/2019 Transcribed Document [facility] [place] [facility] [place] [address] ProviderEryn MD [address] [place] [id number] Social History Tobacco Use Types Packs/Day Years Used Date Smoking Tobacco: Never Assessed Sex and Gender Information Value Date Recorded Sex Assigned at Not on file Legal Sex Male 5:45 PM CDT Gender Identity Not on file Sexual Orientation Not on file documented as of this encounter Miscellaneous Notes * Cerner Conversion Note - Eryn ProviderMD - 05/21/2019 6:00 AM CDT Pain Assessment Entered On: 05/21/2019 6:43 EDT Performed On: 05/21/2019 6:28 EDT by Ed Sosa RN-Resource Intervention Information: acetaminophen Performed by Ed Sosa RN-Resource on 05/21/2019 06:23:00 EDT acetaminophen,1000mg IV Piggyback,Forearm Right Pain Assessment Pain Assessment : Follow-up assessment Pain Scale Goal : 3 Pain Scale Used : 0-10 Scale Ed Sosa RN-Resource - 05/21/2019 6:43 EDT Pain Scale Intensity : 3 Ed Sosa RN-Resource - 05/21/2019 6:43 EDT Image 4 - Images currently included in the form version of this document have not been included in the text rendition version of the form. Electronically signed by Radha Paris Conversion Water/Wastewater Project Manager Nicolas at 11/18/2022 9:27 AM CDT documented in this encounter Plan of Treatment Not on file documented as of this encounter Visit Diagnoses Not on filedocumented in this encounter Care Teams Blender Conveyor Operator Relationship Specialty Start Date End Date Alfredo Aguiar MD [address] [place] [address] PCP - General Adolescent Medicine 10/16/22 10/19/22 Alfredo Aguiar MD [address] [place] [address] PCP - General Adolescent Medicine 10/20/22 documented as of this encounter
--- OUTSIDE RECORDS SUMMARY | 2025-01-23 15:56 | XMS_ITS | Encounter Summary ---
Author Organization [employer] Address [address] [place] [address] Care Team Providers Care Security Project Manager Name Role Phone Alfredo Aguiar MD Primary Care Provider + [phone] Alfredo Aguiar MD Primary Care Provider + [phone] Encounter Details Date Type Department Care Team (Late st Contact Info) Description 05/21/2019 Transcribed Document [facility] [place] [address] ProviderEryn MD [address] [place] [id number] Social History Tobacco Use Types Packs/Day Years Used Date Smoking Tobacco: Never Assessed Sex and Gender Information Value Date Recorded Sex Assigned at Not on file Legal Sex Male 5:45 PM CDT Gender Identity Not on file Sexual Orientation Not on file documented as of this encounter Miscellaneous Notes * Cerner Conversion Note - Eryn Arcos MD - 05/21/2019 7:32 AM CDT Patient: LORA JAIN JR Age: 78 years Sex: Male : 1940 Associated Diagnoses: None Author: WENDIE PENG MD-INF INFECTIOUS DISEASES CONSULTATION/INITIAL HOSPITAL VISIT REF MD: Dr. Guillermina EMMANUEL MD: Dr. Wendie Peng Date of Admission: 05/20/19 Date of Consultation: 05/21/19 Reason for Consultation: Left TKA infection CC: Left knee prosthetic joint pain HPI: 78 yo male who we were asked to see for Left prosthetic joint infection. He has a h/o prostate cancer/prostatectomy, T2DM, HTN, LUZ ELENA/CPAP, and left knee OA/left TKA 04/14/[address] Allison. He was seen by Dr. Allison around 04/21/19 for progressive left knee pain and swelling which began about 8 months ago. Aspiration of the knee on 04/21/19 showed elevated WBC with positive Synovasure. Cultures were positive for a martin-sensitive Streptococcus mutans (Dr. Allison showed PA the culture results from [facility], but unable to print out). He was not given any antibiotics. He was taken to the OR on 05/20/[address] Allison for left TKA explantation with antibiotic spacer implantation. Surgical cultures are pending. He was started on low dose Rocephin and Vancomycin. ID was asked to evaluate and manage his antibiotic therapy. Allegies: Allergies (1) Active Reaction No Known Allergies None Documented Medications: Medications by Classification Antimicrobials cefTRIAXone (Rocephin) - 1 Gram, IV Piggyback, [id number], infuse over 30 Minute(s), Routine vancomycin + Sodium Chloride 0.9% intravenous solution 250 m - 1,000 mg, IV Piggyback, [id number], infuse over 1 Hour(s), Routine Anticoagulant heparin - 5,000 Units, SubCutaneous, Inj, Q8H, Routine Cardiovascular bisoprolol - 5 mg, Oral, Tab, Daily, Routine cloNIDine - 0.2 mg, Oral, Tab, Q4H, PRN for Hypertension, Routine Respiratory promethazine (Phenergan) - 12.5 mg, IV Push, Inj, Q6H, PRN for Nausea, Routine GI ondansetron (Zofran) - 4 mg, IV Push, Inj, Q4H, PRN for Nausea, Routine ondansetron (Zofran) - 4 mg, Oral, Tab, Q4H, PRN for Nausea, Routine pantoprazole (Protonix) - 40 mg, Oral, EC Tab, Daily, Routine magnesium hydroxide (Milk of Magnesia 8% oral suspension) - 30 mL, Oral, Liquid, TID, PRN for Constipation, Routine bisacodyl (Dulcolax Laxative) - 10 mg, Rectal, Supp, BID, PRN for Constipation, Routine bisacodyl (Dulcolax Laxative) - 10 mg, Rectal, Supp, 1-Time, PRN for Constipation, Routine docusate (Colace) - 100 mg, Oral, Cap, Daily, Routine docusate (Colace) - 100 mg, Oral, Cap, BID, Routine docusate-senna (Senokot S) - 2 Tab, Oral, Tab, At Bedtime, Routine polyethylene glycol 3350 (MiraLax) - 17 Gram, Oral, Powder, Daily, Routine glycopyrrolate - 15.6 mcg, Inhalation, Inh, BID simethicone - 80 mg, Oral, Tab, Q6H, PRN for Gas, Routine Endocrine insulin lispro (insulin lispro sliding scale) - Scale A:, SubCutaneous, Inj, AC and at Bedtime, Routine HEENT benzocaine-menthol topical (Chloraseptic 6 mg-10 mg mucous m - 1 Lozenge, Oral, Lozenge, Q2H, PRN for Sore Throat, Routine Pain Meds HYDROmorphone (Dilaudid) - 0.4 mg, IV Push, Inj, Q3H, PRN for Breakthrough Pain, Routine oxyCODONE - 10 mg, Oral, Tab, Q4H, PRN for Pain (Severe 7-10), Routine oxyCODONE - 5 mg, Oral, Tab, Q4H, PRN for Pain (Moderate 4-6), Routine acetaminophen - 1,000 mg 100 mL, IV Piggyback, Inj, Q6H, Administer over 15 Minute(s) acetaminophen (Tylenol) - 1,000 mg, Oral, Tab, Q6H, Routine Sedatives diphenhydrAMINE (Benadryl) - 25 mg, Oral, Tab, Q4H, PRN for Itching, Routine zolpidem (Ambien) - 5 mg, Oral, Tab, At Bedtime, PRN for Sleep, Routine Topical petrolatum topical (petrolatum topical ointment) - 1 Application, Topical, Oint, Daily, PRN for Nasal Dryness, Routine Vitamins ferrous gluconate - 324 mg, Oral, Tab, Daily, Routine multivitamin - 1 Tab, Oral, Tab, Daily, Routine Undefined Medications hydrALAZINE - 10 mg, IV Push, Inj, Q6H, PRN for Hypertension, Routine naloxone - 0.1 mg, IV Push, Inj, Q5Min, PRN for Oversedation, Routine PMH: Asthma, prostate cancer, DJD, T2DM, GERD, TIA, HTN, HH, LUZ ELENA/CPAP, arthritis, migraine, skin cancer PSH: Skin cancer removal, right hand trigger finger repair, left ankle repair, left wrist/hand ORIF, prostatectomy, left TKA, left knee meniscus repair, lap cholecystectomy, left inguinal hernia repair, ESS/septal surgery, appendectomy FH: Mother at age 101 old age Father at age 88 old age 3 children alive and healthy SH: , lives in [place], [place]. Denies tobacco, alcohol, or illicit drug use. ROS: General: + fever, chills, no sweats, malaise, fatigue, weakness Skin: Denies rashes, pruritus, or lesions. HEENT: Denies dizziness, syncope, eye pain, blurry vision, ear pain, tinnitus, nasal congestion, rhinorrhea, sore throat, or dysphagia Respiratory; Denies shortness of breath, cough, or hemoptysis Cardio: Denies chest pain, palpitations, murmurs, or edema GI: Denies abdominal pain, nausea, vomiting, diarrhea, hematochezia, or melena : Denies flank pain, hematuria, or increased frequency, urgency, or burning of urination MS: + left knee pain, swelling, redness, and warmth increasing over several months. Denies decreased ROM. No new back pain, Neuro: Denies seizures, strokes, numbness or tingling, headaches, gait irregularities, or confusion Psych: Denies anxiety or depression Endo: + Diabetes mellitus no thyroid problems Immuno: Denies immunocompromised, recurrent fevers, or recurrent infections Hemo: Denies bleeding disorder or excessive bruising 12 systems were reviewed and are negative except per HPI or above PE: Vitals Signs (last 24 hrs) Last Charted Minimum Maximum Temp 97.8 (MAY 21 05:33) 97.8 (MAY 21:) 98.9 (MAY 20 16:55) Mon HR 92 (MAY 21:33) 61 (MAY 20 17:50) 92 (MAY 21 05:33) Periph HR 76 (MAY 20 11:23) 76 (MAY 20 11:23) 76 (MAY 20 11:23) Resp Rate 18 (MAY 21 05:33) L 4 (MAY 20 18:05) H 38 (MAY 20 17:35) SBP 126 (MAY 21 05:33) L 74 (MAY 20 17:10) 130 (MAY 20 11:23) DBP 65 (MAY 21 05:33) L 47 (MAY 20 17:05) 70 (MAY 20 10:39) MAP 77 (MAY 21 05:33) 56 (MAY 20 17:10) 85 (MAY 20 17:55) SpO2 99 (MAY 21 05:33) L 93 (MAY 20 18:50) 100 (MAY 20 10:39) Exam: Constitutional: NAD, alert, WD/WN, appears stated age, nontoxic appearing HEENT: NC/AT, PERRLA, EOMI, sclera non-icteric, conjunctiva not injected, normal hearing, sinuses nontender, no thrush, no exudate. External ears, eyes, nose, and lip are normal Neck: Supple, no masses Lymph nodes: No lymphadenopathy of cervical, supraclavicular, axillary, or inguinal lymph nodes Respiratory: CTA bilaterally, non-labored breathing. Cardio: RRR, S1, S2, no murmurs, gallops, or rubs. GI: BS+, non-tender, non-distended, no HSM : no swain, no genital yeast dermatitis, normal external genitalia MS: normal ROM, left knee with surgical dressing in place along with brace and accordion drain with bloody drainage. Derm: No rashes, abrasions, breakdown. No Janeway lesions or splinter hemorrhages Neuro: CNII-XII grossly intact, no focal deficits, Alert and oriented x 3 Psych: cooperative, normal affect Labs: Labs (Last four charted values) WBC 9.5 (MAY 21) 7.2 (MAY 18) HB L 8.0 (MAY 21) L 8.0 (MAY 20) L 11.2 (MAY 16) HCT L 25.5 (MAY 21) L 35.3 (MAY 18) Plt H 454 (MAY 21) H 581 (MAY 18) Na L 134 (MAY 21) L 134 (MAY 18) K 4.3 (MAY 21) 4.2 (MAY 16) Cl L 98 (MAY 21) L 97 (MAY 18) CO2 27 (MAY 21) 29 (MAY 16) BUN 21 (MAY 21) 20 (MAY 18) Cr 1.30 (MAY 21) 1.20 (MAY 18) Glu R H 305 (MAY 21) H 261 (MAY 18) Ca 8.5 (MAY 21) 9.4 (MAY 18) PT 10.4 (MAY 18) INR 1.0 (MAY 18) PTT 28.6 (MAY 18) Creatinine Clearance (Current Encounter/Past 24 Hours) Creatinine Level 1.30 mg/dL 05/21/2019 03:49 Bun/Creatinine 16.2 05/21/2019 03:49 Estimated Creatinine Clearance 49.74 mL/Min 05/21/2019 03:50 Micro: 05/20/19: Surgical cultures pending. Rad: No Radiology Results Found IMPRESSION: 1. Streptococcus mutans left TKA infection- s/p explantation with antibiotic spacer 05/20/19. He will require at least 6 weeks of intravenous antibiotic therapy prior to reimplantation. I will simplify his antibiotic therapy to ceftriaxone alone pending further operative culture data. We will proceed with a PICC line placement. I discussed the potential risks and benefits of PICC line placement with him and his family in detail today, including thrombus and infection. 2. 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 Anemia of chronic disease/ABL 4. T2DM, tightly control for improved healing 5. Prostate cancer/prostatectomy 6. LUZ ELENA/CPAP 7. HTN RECOMMENDATIONS/PLANS: Thank you for asking us to see Lora Jain Jr. Recommend the followin. Monitor surgical cultures 2. Continue Rocephin and increase to 2 GM IV daily 3. D/c Vancomycin 4. Continue wound care 5. PICC line placement Wendie Peng MD saw and examined patient, verified findings, reviewed labs and radiographic data, formulated diagnosis, plan for treatment, and all medical decision making. Bowen Saldana for Dr. Wendie Peng. Electronically signed by [facility] Conversion Barrel Rifler Broach Cerner at 11/18/2022 9:41 AM CDT documented in this encounter Plan of Treatment Not on file documented as of this encounter Visit Diagnoses Not on filedocumented in this encounter Care Teams Security Project Manager Relationship Specialty Start Date End Date Alfredo Aguiar MD [address] [place] [address] PCP - General Adolescent Medicine 10/16/22 10/19/22 Alfredo Aguiar MD [address] [place] [address] PCP - General Adolescent Medicine 10/20/22 documented as of this encounter
--- OUTSIDE RECORDS SUMMARY | 2025-01-23 15:56 | XMS_ITS | Encounter Summary ---
Author Organization [facility] Address [address] [place] [address] Care Team Providers Care Staff Anesthesiologist Name Role Phone Alfredo Aguiar MD Primary Care Provider + [phone] Alfredo Aguiar MD Primary Care Provider + [phone] Encounter Details Date Type Department Care Team (Late st Contact Info) Description 05/23/2019 Transcribed Document [facility] [place] [facility] [place] [facility] [place] [address] ProviderEryn MD [address] [place] [id number] Social History Tobacco Use Types Packs/Day Years Used Date Smoking Tobacco: Never Assessed Sex and Gender Information Value Date Recorded Sex Assigned at Not on file Legal Sex Male 5:45 PM CDT Gender Identity Not on file Sexual Orientation Not on file documented as of this encounter Miscellaneous Notes * Cerner Conversion Note - Eryn Arcos MD - 05/23/2019 9:36 AM CDT Patient: LORA JAIN JR Age: 78 years Sex: Male : 1940 Associated Diagnoses: None Author: WENDIE PENG MD-INF INFECTIOUS DISEASES Progress Note Antibiotics: Rocephin Reason for Consultation: Left TKA infection CC: Left knee prosthetic joint pain SUBJECTIVE: 05/21/19: Consultation: 78 yo male who we were asked [...] to evaluate and manage his antibiotic therapy. 05/22/19: Feeling better. No pain currently. Denies f/c, sob, n/v/d, rashes. 05/23/19: Continues to feel better. Knee pain controlled. Denies f/c, sob, n/v/d, rashes. OBJECTIVE: Vitals Signs (last 24 hrs) Last Charted Minimum Maximum Temp 98.1 (MAY 23 06:00) 97.9 (MAY 23 02:34) 98.6 (MAY 22 14:56) Mon HR 92 (MAY 23 09:07) 72 (MAY 22 14:56) 95 (MAY 23 [...] (MAY 23 06:00) 96 (MAY 22 14:56) Exam: Constitutional: NAD, alert, WD/WN, appears stated age, nontoxic appearing HEENT: NC/AT, PERRLA, EOMI, sclera non-icteric, conjunctiva not injected, normal hearing, sinuses nontender, no thrush, no exudate Respiratory: CTA bilaterally, non-labored breathing. Cardio: RRR, S1, S2, no murmurs, gallops, or rubs. GI: BS+, non-tender, non-distended, no HSM : no swain, no genital yeast dermatitis MS: normal ROM, left knee with surgical dressing in place along with brace and accordion drain in place. Derm: No rashes, abrasions, breakdown. No Janeway lesions or splinter hemorrhages Neuro: CNII-XII grossly intact, no focal deficits, Alert and oriented x 3 Psych: cooperative, normal affect Labs: Labs (Last four charted values) WBC H 10.5 (MAY 23) H 11.5 (MAY 22) 9.5 (MAY 21) 7.2 (MAY 18) HB L 10.3 (MAY 23) L 7.9 (MAY 22) L 8.0 (MAY 21) L 8.0 (MAY 18) HCT L 30.9 (MAY 23) L 24.4 (MAY 22) L 25.5 (MAY 21) L 35.3 (MAY 16) Plt H 515 (MAY 23) H 462 (MAY 22) H 454 (MAY 21) H 581 (MAY 16) Na L 133 (MAY 23) L 131 (MAY 22) L 134 (MAY 21) L 134 (MAY 16) K 4.1 (MAY 23) 4.5 (MAY 22) 4.3 (MAY 21) 4.2 (MAY 16) Cl L 98 (MAY 23) L 96 (MAY 22) L 98 (MAY 21) L 97 (MAY 16) CO2 24 (MAY 23) L 19 (MAY 22) 27 (MAY 21) 29 (MAY 16) BUN H 23 (MAY 23) H 24 (MAY 20) 21 (OCT 19) 20 (OCT 16) Cr 1.20 (MAY 23) H 1.50 (MAY 20) 1.30 (OCT 19) 1.20 (OCT 16) Glu R H 350 (MAY 23) H 415 (MAY 22) H 305 (MAY 21) H 261 (MAY 16) Ca 9.7 (MAY 23) 9.3 (MAY 20) 8.5 (MAY 19) 9.4 (MAY 16) PT 10.4 (MAY 16) INR 1.0 (MAY 18) PTT 28.6 (MAY 18) AST 8 (MAY 23) ALT L 15 (MAY 23) ALK P 81 (MAY 23) T Bili 0.5 (MAY 23) PTN 6.4 (MAY 23) ALB L 2.2 (MAY 23) Creatinine Clearance (Current Encounter/Past 24 Hours) Creatinine Level 1.20 mg/dL 05/23/2019 03:48 Bun/Creatinine 19.2 05/23/2019 03:48 Estimated Creatinine Clearance 53.89 mL/Min 05/23/2019 03:48 Micro: 05/20/19: Surgical cultures aerobic cultures NG finalized AFB, anaerobic, fungal cx NGSF 05/18: MRSA screen negative Rad: No Radiology Results Found IMPRESSION: 1. 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 Anemia of chronic disease/ABL--ongoing 4. T2DM, tightly control for improved healing 5. Prostate cancer/prostatectomy 6. LUZ ELENA/CPAP 7. HTN 8. ARF, improved. Vancomycin stopped on 05/21/19 RECOMMENDATIONS/PLANS: 1. Monitor surgical cultures--aerobic cx NG finalized. 2. Continue Rocephin 2 g IV daily 3. Continue wound care 4. PICC line placement--on order 5. Discharge to rehabilitation UM/DEREK: [facility]--D/w CM about changes to prior instructions sent. 1. Make sure he gets his dose of Rocephin 2 GM IV before discharge 2. Make sure he gets PICC placement today 3. He will need Rocephin 2 GM IV daily for 6 weeks. [facility] doctor will need to see him at [facility]. D/w Dr. Rob Pollard with our group. 4. He will need qweekly PICC line dressing changes with BioPatch or CHG patch 5. He will need qweekly CBC, CMP, ESR, CRP Wendie Peng MD saw and examined patient, verified findings, reviewed labs and radiographic data, formulated diagnosis, plan for treatment, and all medical decision making. Bowen Saldana for Dr. Wendie Peng. Electronically signed by Interface, Sjh Conversion Title Vehicle Service Attendant Cerner at 11/18/2022 9:23 AM CDT documented in this encounter Plan of Treatment Not on file documented as of this encounter Visit Diagnoses Not on filedocumented in this encounter Care Teams Staff Anesthesiologist Relationship Specialty Start Date End Date Alfredo Aguiar MD [address] [place] [address] PCP - General Adolescent Medicine 10/16/22 10/19/22 Alfredo Aguiar MD [address] [place] [address] PCP - General Adolescent Medicine 10/20/22 documented as of this encounter
--- OUTSIDE RECORDS SUMMARY | 2025-01-23 15:56 | XMS_ITS | Encounter Summary ---
Author Organization [employer] [facility] [employer] Address [address] [place] [address] Care Team Providers Care Operations Processor Name Role Phone Alfredo Aguiar MD Primary Care Provider + [phone] Alfredo Aguiar MD Primary Care Provider + [phone] Encounter Details Date Type Department Care Team (Late st Contact Info) Description 05/21/2019 Transcribed Document [facility] [place] [facility] [place] [address] ProviderEryn MD [address] [place] [phone] Social History Tobacco Use Types Packs/Day Years Used Date Smoking Tobacco: Never Assessed Sex and Gender Information Value Date Recorded Sex Assigned at Not on file Legal Sex Male 5:45 PM CDT Gender Identity Not on file Sexual Orientation Not on file documented as of this encounter Miscellaneous Notes * Cerner Conversion Note - Eryn ProviderMD - 05/21/2019 12:00 AM CDT Pain Assessment Entered On: 05/21/2019 0:57 EDT Performed On: 05/21/2019 0:34 EDT by Ed Sosa RN-Resource Intervention Information: acetaminophen Performed by Ed Sosa RN-Resource on 05/21/2019 00:29:00 EDT acetaminophen,1000mg IV Piggyback,Forearm Left Pain Assessment Pain Assessment : Follow-up assessment Pain Scale Goal : 3 Pain Scale Used : 0-10 Scale Ed Sosa RN-Resource - 05/21/2019 0:57 EDT Pain Scale Intensity : 0 Ed Sosa RN-Resource - 05/21/2019 0:57 EDT Image 4 - Images currently included in the form version of this document have not been included in the text rendition version of the form. documented in this encounter Plan of Treatment Not on file documented as of this encounter Visit Diagnoses Not on filedocumented in this encounter Care Teams Operations Processor Relationship Specialty Start Date End Date Alfredo Aguiar MD [address] [place] [address] PCP - General Adolescent Medicine 10/16/22 10/19/22 Alfredo Aguiar MD [address] [place] [address] PCP - General Adolescent Medicine 10/20/22 documented as of this encounter
--- OUTSIDE RECORDS SUMMARY | 2025-01-23 15:56 | XMS_ITS | Encounter Summary ---
Author Organization [employer] [facility] [employer] Address [address] [place] [address] Care Team Providers Care Osteopathic Medicine Teacher Name Role Phone Alfredo Aguiar MD Primary Care Provider + [phone] Alfredo Aguiar MD Primary Care Provider + [phone] Encounter Details Date Type Department Care Team (Late st Contact Info) Description 05/22/2019 Transcribed Document [facility] [place] [address] ProviderEryn MD [address] [place] [phone] Social History Tobacco Use Types Packs/Day Years Used Date Smoking Tobacco: Never Assessed Sex and Gender Information Value Date Recorded Sex Assigned at Not on file Legal Sex Male 5:45 PM CDT Gender Identity Not on file Sexual Orientation Not on file documented as of this encounter Miscellaneous Notes * Cerner Conversion Note - Eryn Arcos MD - 05/22/2019 11:16 AM CDT Pain Assessment Entered On: 05/22/2019 18:01 EDT Performed On: 05/22/2019 16:14 EDT by Marcelina Bojorquez RN Intervention Information: traMADol Performed by Marcelina Bojorquez RN on 05/22/2019 15:14:00 EDT traMADol,25mg Oral,Abdominal Pain Pain Assessment Pain Assessment : Follow-up assessment [...] on filedocumented in this encounter Care Teams Osteopathic Medicine Teacher Relationship Specialty Start Date End Date Alfredo Aguiar MD [address] [place] [address] PCP - General Adolescent Medicine 10/16/22 10/19/22 Alfredo Aguiar MD [address] [place] [address] PCP - General Adolescent Medicine 10/20/22 documented as of this encounter
--- OUTSIDE RECORDS SUMMARY | 2025-01-23 15:56 | XMS_ITS | Encounter Summary ---
Author Organization [employer] [facility] [employer] Address [address] [place] [address] Care Team Providers Care Pony Cylinder Press Operator Name Role Phone Alfredo Aguiar MD Primary Care Provider + [phone] Alfredo Aguiar MD Primary Care Provider + [phone] Encounter Details Date Type Department Care Team (Late st Contact Info) Description 05/22/2019 Transcribed Document [facility] [place] [facility] [place] [address] ProviderEryn MD [address] [place] [address] [phone] Social History Tobacco Use Types Packs/Day Years Used Date Smoking Tobacco: Never Assessed Sex and Gender Information Value Date Recorded Sex Assigned at Not on file Legal Sex Male 5:45 PM CDT Gender Identity Not on file Sexual Orientation Not on file documented as of this encounter Miscellaneous Notes * Cerner Conversion Note - Eryn Arcos MD - 05/22/2019 12:39 PM CDT Treatment Intervention, OT Entered On: 05/23/2019 13:21 EDT Performed On: 05/23/2019 11:47 EDT by BRANDY MATHEW COTA General Information, OT Visit Type, OT : Treatment Note Patient Orders : Order Date Order Ordering 05/20/2019 16:52 OT Evaluation and Treatment Ordered By: LION DAVIS MD-ORT 05/22/2019 12:39 Occupational Therapy Additional Tx Ordered By: Active Diagnoses : 05/23/2019 12:00 Infection and inflammatory reaction due to other internal joint prosthesis, initial encounter 05/22/2019 12:00 Acute kidney failure, unspecified 05/22/2019 12:00 Hypo-osmolality and hyponatremia 05/21/2019 12:00 Encounter for fitting and adjustment of unspecified external prosthetic device 05/21/2019 12:00 Gastro-esophageal reflux disease without esophagitis 05/21/2019 12:00 Malignant neoplasm of prostate 05/21/2019 12:00 Type 2 diabetes mellitus with hyperglycemia 05/21/2019 12:00 Unspecified asthma, uncomplicated 05/21/2019 12:00 Unspecified maternal hypertension, unspecified trimester Admission Date : 05/20/2019 06:54 Co-treated by, OT : Physical Therapist Personal Devices : Personal Devices Glasses Assistive Devices : Assistive Devices No Devices Recorded Precautions in Place : Fall prevention measures BRANDY MATHEW COTA - 05/23/2019 13:16 EDT General Status Patient Received Status : Supine in bed Treatment Start Time : 05/23/2019 11:33 EDT Patient Left Status : Up in chair, RN/PCT informed, All needs met and within reach Treatment End Time : 05/23/2019 11:47 EDT Treatment Time : 14 Minute(s) BRANDY MATHEW COTA - 05/23/2019 13:16 EDT Functional Mobility Mobility Grid Bed Roll Left : Rehab Minimal assistance Bed Scooting : Rehab Minimal assistance Supine to Sit : Rehab Minimal assistance Sit to Stand : Rehab Minimal assistance BRANDY MATHEW COTA - 05/23/2019 13:16 EDT Plan of Care, OT OT Tx Plan/Goals Established w Patient : Yes BRANDY MATHEW COTA - 05/23/2019 13:16 EDT Commutator Repairer Goals, OT Dressing, Lower Body LTG Grid Goal #1 Activity : Dressing, Lower Body Assist : Assist, moderate Date to Meet : 06/05/2019 EDT Goal Status : Initial goal BRANDY MATHEW COTA - 05/23/2019 13:16 EDT Toileting LTG Grid Goal #1 Activity : Toileting Assist : Assist, minimal Date to Meet : 06/05/2019 EDT Goal Status : Initial goal BRANDY MATHEW COTA - 05/23/2019 13:16 EDT Toilet Transfer LTG Grid Goal #1 Activity : Toilet Transfer, Ambulatory Assist : Supervision or set up Date to Meet : 06/05/2019 EDT Goal Status : Progressing, continue Comment : TDWB LLE BRANDY MATHEW COTA - 05/23/2019 13:16 EDT Bed Mobility/ Bed Transfer LTG Grid Goal #1 Activity : Bed Mobility/Bed Transfer Assist : Independent, modified Date to Meet : 06/05/2019 EDT Goal Status : Progressing, continue BRANDY MATHEW COTA - 05/23/2019 13:16 EDT Treatment Note Subjective Comment : ELICEO Bacon okd session Patient's Response to Treatment : Client yani fair Additional Objective Information : Client was supine in bed. Used leg generator assembler. MIN A to EOB. Client stood with gaitbelt and RW at MIN A. Ambulate short functional distance. Occ cue for WB status. Client placed back into supine. Realized bed was not working. Client back up and transfer over to recliner at MIN A. RN notified about bed. CL in place. Assessment : progressing with goals Plan for Treatment : continue wit POC BRANDY MATHEW COTA - 05/23/2019 13:16 EDT Pain Assessment Pain Scaled Used : 0-10 Pain scale Pain Score Pre-Intervention : 0 BRANDY MATHEW MADIE - 05/23/2019 13:16 EDT Image 1 - Images currently included in the form version of this document have not been included in the text rendition version of the form. Anticipated Discharge Needs, OT/PT Anticipated Discharge to : Unit, rehabilitation BRANDY MATHEW COTA - 05/23/2019 13:[address] [facility] OT Charges OT Selfcare/Hm Mgmt Ea 15 Min : 1 BRANDY MATHEW COTA - 05/23/2019 13:16 EDT Electronically signed by [facility] Conversion Yard Operator Cerner at 11/18/2022 9:18 AM CDT documented in this encounter Plan of Treatment Not on file documented as of this encounter Visit Diagnoses Not on filedocumented in this encounter Care Teams Pony Cylinder Press Operator Relationship Specialty Start Date End Date Alfredo Aguiar MD [address] [place] [address] PCP - General Adolescent Medicine 10/16/22 10/19/22 Alfredo Aguiar MD [address] [place] [address] PCP - General Adolescent Medicine 10/20/22 documented as of this encounter
--- OUTSIDE RECORDS SUMMARY | 2025-01-23 15:56 | XMS_ITS | Encounter Summary ---
Author Organization [email or web address] [facility] [employer] Address [address] [place] [address] Care Team Providers Care Medical Physiologist Name Role Phone Alfredo Aguiar MD Primary Care Provider + [phone] Alfredo Aguiar MD Primary Care Provider + [phone] Encounter Details Date Type Department Care Team (Late st Contact Info) Description 08/19/2019 Transcribed Document [facility] [place] [facility] [place] [address] ProviderEryn MD [address] [place] [id number] Social History Tobacco Use Types Packs/Day Years Used Date Smoking Tobacco: Never Assessed Sex and Gender Information Value Date Recorded Sex Assigned at Not on file Legal Sex Male 5:45 PM CDT Gender Identity Not on file Sexual Orientation Not on file documented as of this encounter Miscellaneous Notes * Cerner Conversion Note - Eryn Arcos MD - 08/19/2019 7:35 AM VISION REHABILITATION THERAPIST Patient: LORA JAIN JR Age: 78 Years Sex: Male : 1940 Assessment/Plan Continue PT. Discontinue Hemovac drain and reinforce incisional VAC. Weightbearing as tolerated but minimize ambulation. Okay to do range of motion. Elevate foot above knee in the above heart to the extent possible. Monitor tibialis anterior function throughout the day. Plan to discharge [facility] tomorrow if stable VTE Prophylaxis - Medical Sequential Compression Device Start: 08/17/19 18:35:00 EST, Bilateral, Length: Knee High, Continuous Order (SUSAN, THARUN) Subjective Postop day 1 left knee replacement status post two-stage management of prosthetic joint infection. Patient states he is regaining sensation in his left foot but still has weakness with tibialis anterior. Pain is well-controlled Vital Signs T: 36.4 ??C TMIN: 36.4 ??C TMAX: 37.3 ??C HR: 84(Monitored) RR: 16 BP: 143/64 SpO2: 94% Oxygen Settings (Last) Oxygen Therapy Mode: Room air (08/19/19 05:46:00) Oxygen Flow Rate: 8 Liter/Min (08/17/19 17:07:00) Intake & Output Totals Last 24 Hours (7a-7a) Input Total: 50 mL Output Total: 510 mL Balance: -460 mL Physical Exam The dressing is clean dry secure. The operative extremity is neurovascularly intact with the exception to which is attributed to peripheral nerve block. Compartments are soft. Hemovac drain and incisional VAC are in place and secure. Scot wrap in place Medications Ambien, 5 mg= 1 Tab, Oral, [...] Test Name Test Result Date/Time Sodium Level 134 mmol/L (Low) 08/19/2019 03:35 EST Potassium Level 4.6 mmol/L 08/19/2019 03:35 EST Chloride Level 101 mmol/L (Low) 08/19/2019 03:35 EST Carbon Dioxide Level 29 mmol/L 08/19/2019 03:35 EST Anion Gap 9 08/19/2019 03:35 EST Glucose Level 302 mg/dL (High) 08/19/2019 03:35 EST Blood Urea Nitrogen 23 mg/dL (High) 08/19/2019 03:35 EST Creatinine Level 1.30 mg/dL 08/19/2019 03:35 EST eGFR >60 mL/min/1.73m2 08/19/2019 03:35 EST eGFR NonAfrican 53 mL/min/1.73m2 (Low) 08/19/2019 03:35 EST Bun/Creatinine 17.7 08/19/2019 03:35 EST Calcium Level 8.9 mg/dL 08/19/2019 03:35 EST Device Comment 1 Notified Nurse RBV 08/18/2019 21:15 EST Device Comment 1 Received Meds 08/18/2019 17:19 EST Device Comment 1 Notified Nurse RBV 08/18/2019 15:34 EST Device Comment 1 Received Meds 08/18/2019 12:52 EST Device Comment 1 Notified Nurse RBV 08/18/2019 11:06 EST Glucose POC2 176 mg/dL (High) 08/18/2019 21:15 EST Glucose POC2 284 mg/dL (High) 08/18/2019 17:19 EST Glucose POC2 335 mg/dL (High) 08/18/2019 15:34 EST Glucose POC2 257 mg/dL (High) 08/18/2019 12:52 EST Glucose POC2 190 mg/dL (High) 08/18/2019 11:06 EST WBC 7.9 K/uL 08/19/2019 03:35 EST RBC 3.67 Million/uL (Low) 08/19/2019 03:35 EST Hgb 11.0 g/dL (Low) 08/19/2019 03:35 EST Hct 33.0 % (Low) 08/19/2019 03:35 EST MCV 89.9 fL 08/19/2019 03:35 EST MCH 30.0 pg 08/19/2019 03:35 EST MCHC 33.3 Gram/dL 08/19/2019 03:35 EST Platelet Count 238 K/uL 08/19/2019 03:35 EST MPV 9.4 fL 08/19/2019 03:35 EST RDW 15.9 % (High) 08/19/2019 03:35 EST Neut % 80.4 % (High) 08/19/2019 03:35 EST Neut # 6.35 K/uL (High) 08/19/2019 03:35 EST Lymph % 4.2 % (Low) 08/19/2019 03:35 EST Lymph # 0.33 x10(3)/uL (Low) 08/19/2019 03:35 EST Ada % 11.9 % (High) 08/19/2019 03:35 EST Ada # 0.94 K/uL 08/19/2019 03:35 EST Eos % 2.5 % 08/19/2019 03:35 EST Eos # 0.20 x10(3)/uL 08/19/2019 03:35 EST Baso % 0.4 % 08/19/2019 03:35 EST Baso # 0.03 x10(3)/uL 08/19/2019 03:35 EST Slide Review No 08/19/2019 03:35 EST IG# 0.05 x10(3)/uL 08/19/2019 03:35 EST IG% 0.60 % 08/19/2019 03:35 EST Electronically signed by [facility] Conversion Bar Waiter/Waitress Cerner at 11/18/2022 9:20 AM CDT documented in this encounter Plan of Treatment Not on file documented as of this encounter Visit Diagnoses Not on filedocumented in this encounter Care Teams Medical Physiologist Relationship Specialty Start Date End Date Alfredo Aguiar MD [address] [place] [address] PCP - General Adolescent Medicine 10/16/22 10/19/22 Alfredo Aguiar MD [address] [place] [address] PCP - General Adolescent Medicine 10/20/22 documented as of this encounter
--- OUTSIDE RECORDS SUMMARY | 2025-01-23 15:56 | XMS_ITS | Encounter Summary ---
Author Organization [employer] Address [address] [place] [address] Care Team Providers Care Stock Broker Name Role Phone Alfredo Aguiar MD Primary Care Provider + [phone] Alfredo Aguiar MD Primary Care Provider + [phone] Encounter Details Date Type Department Care Team (Late st Contact Info) Description 08/19/2019 Transcribed Document [facility] [place] [facility] [place] [address] ProviderEryn MD [address] [place] [address] [phone] Social History Tobacco Use Types Packs/Day Years Used Date Smoking Tobacco: Never Assessed Sex and Gender Information Value Date Recorded Sex Assigned at Not on file Legal Sex Male 5:45 PM CDT Gender Identity Not on file Sexual Orientation Not on file documented as of this encounter Miscellaneous Notes * Cerner Conversion Note - Eryn ProviderMD - 08/19/2019 1:57 PM TEACHER OF THE DEAF On Going Discharge Planning Entered On: 08/19/2019 13:59 EST Performed On: 08/19/2019 13:57 EST by JUANY HERNANDEZ RN-Pasta MakerStove Installer Progress Note Discharge Arrangements : Patient Post-Acute Information Patient Name: LORA JAIN JR Gender: Male : [birth year] Age: 78 Years [place] Referral(s): Service: Organization: Business Address: Phone Number: Nursing Home Facility [facility] [address] [place] [address] [address] [place], [address] Discharge Options Discussed with Patient : Home Health, Short term rehabilitation Barriers to Discharge Identified : 3 Day Qualifying Stay for SNF Barriers to Discharge Unresolved : 3 Day Qualifying Stay for SNF Designation of Choice Signed : Yes Patient Offered Choice/Affiliations Explained : Yes List/Info Provided Pt/Fam/Support Person : Home health, halfway facilities Were Referrals Sent to Post Acute Providers : Yes Is the Patient Meeting Medical Necessity : Yes JUANY HERNANDEZ, RN-Pasta Maker - 08/19/2019 13:57 EST Narrative Progress Note Narrative Progress Note : Hemovac dc'd today with WOCN at bedside to ensure wound vac not disrupted. Pt will dc to [place] tomorrow 08/20 via daughter. No other CM needs identified. JUANY HERNANDEZ RN-Pasta Maker - 08/19/2019 13:57 EST documented in this encounter Plan of Treatment Not on file documented as of this encounter Visit Diagnoses Not on filedocumented in this encounter Care Teams Stock Broker Relationship Specialty Start Date End Date Alfredo Aguiar MD [address] [place] [address] PCP - General Adolescent Medicine 10/16/22 10/19/22 Alfredo Aguiar MD [address] [place] [address] PCP - General Adolescent Medicine 10/20/22 documented as of this encounter
--- OUTSIDE RECORDS SUMMARY | 2025-01-23 15:56 | XMS_ITS | Clinical Summary ---
Author Organization [facility] Address [address] [place] [address] Care Team Providers Care Results Engineer Name Role Phone Alfredo Aguiar MD Primary Care Provider + [phone] Allergies No known active allergies Medications rosuvastatin (Crestor) 20 MG tablet every day. 12/27/19 21 Active lisinopril 5 MG tablet Take 0.5 tablets (2.5 mg) by mouth 1 (one) time each day. Acti ve aspirin 81 MG EC tablet Take 1 tablet (81 mg) by mouth 1 (one) time each day. Active Viibryd 40 MG tablet every day. 01/03/20 21 Active omeprazole (PriLOSEC) [address] capsule BID. 02/23/20 21 Active Tiotropium Grant Monohydrate (SPIRIVA RESPIMAT IN) 2 puffs every day. Active Multiple Vitamins-Minera ls (RA VISION-RENARD PRESERVE PO) Take by mouth. 2 tablets bid Active clopidogrel (Plavix) 75 MG tablet 10/21/19 23 Active insulin pen needle (B-D ULTRAFINE III SHORT PEN) 31G X 8 mm misc Use 4 per day to inject insulin 400 each 3 10/29/19 23 Active pantoprazole (ProtoNix) 20 MG EC tablet 12/28/19 23 Active bisoprolol (Zebeta) 5 MG tablet Take 0.5 tablets (2.5 mg) by mouth 1 (one) time each day. 03/11/20 23 Active cyanocobalamin 100 MCG tablet Take 1 tablet (100 mcg) by mouth 1 (one) time each day. Acti ve Methylcobalamin 1000 MCG sublingual tablet 1 (one) time each day. 03/05/20 23 Active ergocalciferol 1.25 MG (59894 UT) capsuleIndicati ons:Vitamin D deficiency Take 1 capsule (50,000 Units) by mouth 1 (one) time per week. 8 capsule 08/24/19 24 Active [facility] F[facility]ER GUMMY BEARS CHILDREN PO Take by mouth. Activ e empagliflozin (Jardiance) 10 MG Take 1 tablet (10 mg) by mouth 1 (one) time each day. 90 tablet 3 03/22/20 24 025 Active insulin glargine (Lantus SoloStar, Basaglar) 100 UNIT/ML injection pen Inject 20 Units under the skin 1 (one) time each day in the morning. 30 mL 2 03/22/20 24 025 Active Additional Information Patient taking differently: 21 UnitsSubcutaneous Every morning, Reported on 10/12/2024 Spiriva Respimat 2.5 MCG/ACT inhaler 03/17/20 24 Active chlorhexidine (Peridex) 0.12 % solution FILL SUPPLIED CUP (ONE-HALF OUNCE); SWISH IN MOUTH FOR 30 SECONDS TWICE DAILY (AFTER toothbrushing). SWISH THEN EXPEL REMAINDER OR USE DIRECTED 06/09/20 24 Active HYDROcodone-shelbie taminophen ([place]haw) 5-325 MG tablet TAKE ONE TABLET BY MOUTH EVERY 6 HOURS NEEDED FOR PAIN MAY CAUSE DROWSINESS 05/19/20 24 Active insulin aspart (NovoLOG FLEXPEN) 100 UNIT/ML injection pen INJECT 10 UNITS UNDER THE SKIN THREE TIMES A DAY BEFORE MEALS PLUS CORRECTION 1:40 GREATER THAN 150, MAXIMUM DAILY DOSE OF 60 UNITS 60 mL 10/06/19 25 Active Active Problems Problem Noted Date Diagnosed Date Class 1 obesity with serious comorbidity and body mass index (BMI) of 30.0 to 30.9 in adult 02/26/2022 Essential hypertension 12/05/2014 Type 2 diabetes mellitus wit h hyperglycemia, with long-term current use of insulin 01/31/2014 Hyperlipidemia 02/08/2013 Immunizations Immunization Administration Dates Next Due Hep A, Adult 07/22/2018 Influenza, High-dose, Split Virus, Trivalent, Injectable, preservative free 03/28/2024,04/28/2022,03/21/2021,2019,04/22/2019 Influenza, high-dose, quadrivalent 04/28,04/28/2022,03/21/2021,2020,03/28/2020,03/28/2020,04/22/2019,0 04/22/2019 Influenza, injectable, quadrivalent 04/02/2018,0 04/14/2017 Rsvpref, Recombinant, Protei n Subunit, Adjuvent 05/04/2023 Tdap 12/06/2021 Zoster, Recombinant 11/09/2018,04/02/2018 Family History Medical History Relation Name Comments Heart disease Father Arthritis Other 1 Cancer Other 2 Obesity Other 3 Relation Name Status Comments Father Other 1 Other 2 Other 3 Social History Tobacco Use Types Packs/Day Years Used Date Smoking Tobacco: Never Smokeless Tobacco: Never Tobacco Cessation:Counseling Given: Not Answered Alcohol Use Standard Drinks/Week Comments Not Currently 0 (1 standard drink = 0.6 oz pur e alcohol) Sex and Gender Information Value Date Recorded Sex Assigned at Not on file Legal Sex Male 8:50 PM EDT Gender Identity Not on file Sexual Orientation Not on file Last Filed Vital Signs Vital Sign Reading Time Taken Comments Blood Pressure 124/68 10/12/2024 9:43 AM EDT Pulse 65 10/12/2024 9:43 AM EDT Temperature 36.3 C (97.3 F) 08/26/2024 8:47 AM EST Respiratory Rate 18 08/26/2024 8:47 AM EST Oxygen Saturation 97% 08/26/2024 8:47 AM EST Inhaled Oxygen Concentration - - Weight 111 kg (245 lb 9.5 oz) 10/12/2024 9:43 AM EDT Height 182.9 cm (6') 10/12/2024 9:43 AM EDT Body Mass Index 33.31 10/12/2024 9:43 AM EDT Plan of Treatment Upcoming Encounters Date Type Department Care Team (Late st Contact Info) Description 01/27/2025 11:40 AM EDT Office Visit [facility] [address] [place] [address] Lizzie Farmer, SENIOR STATISTICIAN [address] [address] 02/01/2025 12:20 PM EDT Office Visit [facility] Endocrinology [address] [place] [address] Neena Fields, SENIOR STATISTICIAN [address] [place] [address] 04/24/2025 8:45 AM EDT Office Visit [facility] [address] [place] [address] Rosa Houston S, OD [address] [place] [address] Health Maintenance Due Date Last Done Comments [facility]-Bone Density Scan 1938 [facility]-Depression Screening 1938 [facility]-Medicare Annual Wellness (AWV) 1938 [facility]-/Child/Adol SDOH Screenings 1938 Diabetes: Dental Exam 1948 [facility]- SDOH Screenings 1956 [facility]-Adult SDOH Screenings 1956 [facility]-Pneumococcal Vaccine: 50+ Years (1 of 2 - PCV) 1957 CRT-[id number]-57 Vaccine ( season) 2024 04/25/2024, 05/14/2022, 01/07/2022, Additional history exists [facility]-Diabetes: Hemoglobin A1C 01/11/2025 10/12/2024, 06/14/2024, 03/22/2024, Additional history exists [facility]-DTaP,Tdap,and Td Vaccines (2 - Td or Tdap) 12/07/2031 12/06/2021 [facility]-Hepatitis A Vaccines Aged Out 07/22/2018 No longer eligible based on patient's age to complete this topic [facility]-Zoster Vaccines Completed 11/09/2018, 8 [facility]-RSV Vaccine: 60+ Years or Completed 05/04/2023 [facility]-Influenza Vaccine Completed 03/28/2024 , 04/28/2022, 04/28/2022, Additional history exists [facility]-Obesity Intervention Completed 025, 08/26/2024, 06/14/2024, Additional history exists HPV Vaccines Aged Out No longer eligi ble based on patient's age to complete this topic [facility]-HIB Vaccines Aged Out No longer e ligible based on patient's age to complete this topic [facility]-IPV Vaccines Aged Out No longer e ligible based on patient's age to complete this topic [facility]-Rotavirus Vaccines Aged Out No lo nger eligible based on patient's age to complete this topic Procedures Procedure Name Priority Date/Time Associated Diagnosis Comments POCT GLYCOSYLATED HEMOGLOBIN (HGB A1C) Routine 10/12/2024 9:59 AM EDT Type 2 diabetes mellitus with hyperglycemia, with long-term current use of insulin ([facility]) from Last 3 Months or Most Recently Relevant to Health Maintenance Results * POCT glycosylated hemoglobin (Hb A1C) (10/12/2024 9:59 AM EDT) POCT Hemoglobin A1C 9.7 <5.7% Non-Diabet ic % [facility] Kit Lot Number [id number] [facility] Kit Expiration Date 09/02/26 [facility] Blood Venous blood specimen / Unknown 10/12/2024 9:59 AM EDT Neena Fields SENIOR STATISTICIAN POINT OF CARE TEST ENTER/KATIE T ORDERABLES Final Result Performing Organization Address City/State/[facility] Co de Phone Number [facility] [address] [place] [phone] from Last 3 Months or Most Recently Relevant to Health Maintenance Insurance [address] [place] [address] MEDICARE Member Subscriber Plan / Payer (Ef fective 2003-Present) Name:Eric Vázquez Member ID:[id number] Relation to Subscriber:Self Name:Eric Vázquez Subscriber ID:[id number] Payer ID:MEDICARE Group ID:Not on file Type:Medicare [place] [facility] [place] [address] [address] [place] [address] Advance Directives Documents on File Type Date Recorded Patient Television Host Expl anation Advance Directives and Living Will 10/24/2022 Living Will and Surrogate Care Teams Results Engineer Relationship Specialty Start Date End Date Alfredo Aguiar MD [address] [place] [address] PCP - General 12/14/20
--- OUTSIDE RECORDS SUMMARY | 2025-01-23 15:56 | XMS_ITS | Encounter Summary ---
Author Organization [employer] Address [address] [place] [address] Care Team Providers Care Field Rep Name Role Phone Alfredo Aguiar MD Primary Care Provider + [phone] Alfredo Aguiar MD Primary Care Provider + [phone] Encounter Details Date Type Department Care Team (Late st Contact Info) Description 05/22/2019 Transcribed Document [facility] [place] [address] ProviderEryn MD [address] [place] [id number] Social History Tobacco Use Types Packs/Day Years Used Date Smoking Tobacco: Never Assessed Sex and Gender Information Value Date Recorded Sex Assigned at Not on file Legal Sex Male 5:45 PM CDT Gender Identity Not on file Sexual Orientation Not on file documented as of this encounter Miscellaneous Notes * Cerner Conversion Note - Eryn Arcos MD - 05/22/2019 4:21 PM CDT Event Note Entered On: 05/22/2019 16:23 EDT Performed On: 05/22/2019 16:21 EDT by Marcelina Bojorquez RN Event Note Event Date/Time : 05/22/2019 14:56 EDT Event Location : Assigned room Description of Event : Started patients 1 of 2 bag of PRBC. Family is requesting consult from endocrine due to elevated blood sugars. Will check evening dose of blood sugar and will contact md afterwards. Marcelina Bojorquez RN - 05/22/2019 16:21 EDT Electronically signed by Wellington [facility] Conversion Grader Meat Cerner at 11/18/2022 9:29 AM CDT documented in this encounter Plan of Treatment Not on file documented as of this encounter Visit Diagnoses Not on filedocumented in this encounter Care Teams Field Rep Relationship Specialty Start Date End Date Alfredo Aguiar MD [address] [place] [address] PCP - General Adolescent Medicine 10/16/22 10/19/22 Alfredo Aguiar MD [address] [place] [address] PCP - General Adolescent Medicine 10/20/22 documented as of this encounter
--- OUTSIDE RECORDS SUMMARY | 2025-01-23 15:56 | XMS_ITS | Encounter Summary ---
Author Organization [facility] Address [address] [place] [address] Care Team Providers Care Manager Statistical Name Role Phone Alfredo Aguiar MD Primary Care Provider + [phone] Alfredo Aguiar MD Primary Care Provider + [phone] Encounter Details Date Type Department Care Team (Late st Contact Info) Description 08/19/2019 Transcribed Document [facility] [place] [address] ProviderEryn MD [address] [place] [address] Social History Tobacco Use Types Packs/Day Years Used Date Smoking Tobacco: Never Assessed Sex and Gender Information Value Date Recorded Sex Assigned at Not on file Legal Sex Male 5:45 PM CDT Gender Identity Not on file Sexual Orientation Not on file documented as of this encounter Miscellaneous Notes * Cerner Conversion Note - Eryn Arcos MD - 08/19/2019 10:30 AM PUBLIC HEALTH PROFESSOR WOCN Inpatient Documentation Entered On: 08/19/2019 11:51 EST Performed On: 08/19/2019 10:30 EST by Supriya Bar Rn-Enterostomal WOCN Admission Date : Admit Date 08/17/2019 07:[address] : Diagnosis (3) Infection and inflammatory reaction due to internal left knee prosthesis, 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 Left knee WENDI with Hemovac adjacent on lateral leg. RN pulled hemovac per RN. WOCN assisted in cutting away minimal drape. After hemostasis achieved, silicone border dressing applied, as patient/RN states patient approved to shower. Covaderms will remain moist, but the silicone border dressing should not. During this time 10-15 minutes, WENDI remained intact without evidence of leak. Reviewed lights of device with patient/family/ RN. Plan for Rehab. RN to contact WOCN today if leak alarm detected. Supriya Bar Rn-Enterostomal - 08/19/2019 11:48 EST Wound & Pressure Ulcer WOCN Wound Pressure Ulcer Documentation : No incision/wound/skin abnormality or pressure ulcer assessments reported. WOCN Ostomy Documentation : No ostomy assessments reported. Supriya Bar Rn-Enterostomal - 08/19/2019 11:48 EST Electronically signed by Wellington [facility] Conversion Wetland Scientist Cerner at 11/18/2022 9:34 AM CDT documented in this encounter Plan of Treatment Not on file documented as of this encounter Visit Diagnoses Not on filedocumented in this encounter Care Teams Manager Statistical Relationship Specialty Start Date End Date Alfredo Aguiar MD [address] [place] [address] PCP - General Adolescent Medicine 10/16/22 10/19/22 Alfredo Aguiar MD [address] [place] [address] PCP - General Adolescent Medicine 10/20/22 documented as of this encounter
--- OUTSIDE RECORDS SUMMARY | 2025-01-23 15:56 | XMS_ITS | Encounter Summary ---
Author Organization [employer] Address [address] [place] [address] Care Team Providers Care Access Assoc Name Role Phone Alfredo Aguiar MD Primary Care Provider + [phone] Alfredo Aguiar MD Primary Care Provider + [phone] Encounter Details Date Type Department Care Team (Late st Contact Info) Description 05/23/2019 Transcribed Document [facility] [place] [facility] [place] [address] ProviderEryn MD [address] [place] [address] Social History Tobacco Use Types Packs/Day Years Used Date Smoking Tobacco: Never Assessed Sex and Gender Information Value Date Recorded Sex Assigned at Not on file Legal Sex Male 5:45 PM CDT Gender Identity Not on file Sexual Orientation Not on file documented as of this encounter Miscellaneous Notes * Cerner Conversion Note - Eryn Arcos MD - 05/23/2019 12:34 PM CDT Patient Education Materials Follows: Discharge Instructions for [...] weakness, slurred speech, difficulty speaking or understanding Electronically signed by Wellington [facility] Conversion Set Up Worker Cerner at 11/18/2022 9:27 AM CDT documented in this encounter Plan of Treatment Not on file documented as of this encounter Visit Diagnoses Not on filedocumented in this encounter Care Teams Access Assoc Relationship Specialty Start Date End Date Alfredo Aguiar MD [address] [place] [address] PCP - General Adolescent Medicine 10/16/22 10/19/22 Alfredo Aguiar MD [address] [place] [address] PCP - General Adolescent Medicine 10/20/22 documented as of this encounter
--- OUTSIDE RECORDS SUMMARY | 2025-01-23 15:56 | XMS_ITS | Encounter Summary ---
Author Organization [facility] Address [address] [place] [address] Care Team Providers Care Van Helper Name Role Phone Alfredo Aguiar MD Primary Care Provider + [phone] Alfredo Aguiar MD Primary Care Provider + [phone] Encounter Details Date Type Department Care Team (Late st Contact Info) Description 08/20/2019 Transcribed Document [facility] [place] [facility] [place] [address] ProviderEryn MD [address] [place] [id number] Social History Tobacco Use Types Packs/Day Years Used Date Smoking Tobacco: Never Assessed Sex and Gender Information Value Date Recorded Sex Assigned at Not on file Legal Sex Male 5:45 PM CDT Gender Identity Not on file Sexual Orientation Not on file documented as of this encounter Miscellaneous Notes * Cerner Conversion Note - Eryn ProviderMD - 08/20/2019 2:14 PM PRODUCTION CONSULTANT Final Discharge Planning Entered On: 08/20/2019 14:14 EST Performed On: 08/20/2019 14:14 EST by RAMBO MURRAY, RN-Product Engineer Final Discharge Planning Discharge Arrangements : Patient Post-Acute Information Patient Name: LORA JAIN JR Gender: Male : 36 Age: 78 Years Curas[place] Referral(s): Service: Organization: Business Address: Phone Number: Snf Facility [facility] [address] [place] [address] [address] [place], [address] Patient Offered Choice/Affiliations Explained : Yes Important Medicare Message Reviewed With : Patient Important Medicare Message Reviewed D/T : 08/19/2019 10:00 EST Transportation Needs : Car Follow Up Appointment Scheduled : No Is Patient High/Moderate Readmission Risk? : Yes Patient/Family Notified of Plan : Yes Patient/Family Notified : patient Is Patient Ready for Discharge? : Yes Physician Notified Patient is Ready for Discharge? : Yes Discharge To Care Management : SNF with Medicare Certification-03 RAMBO MURRAY, RN-Product Engineer - 08/20/2019 14:14 EST Final Narrative Note Final Narrative Note : Pt to discharge to [facility]. Family to transport. Discharge summary faxed. RAMBO MURRAY, RN-Product Engineer - 08/20/2019 14:14 EST Electronically signed by Wellington, [facility] Conversion Instrumentation And Controls Designer Cerner at 11/18/2022 9:18 AM CDT documented in this encounter Plan of Treatment Not on file documented as of this encounter Visit Diagnoses Not on filedocumented in this encounter Care Teams Van Helper Relationship Specialty Start Date End Date Alfredo Aguiar MD [address] [place] [address] PCP - General Adolescent Medicine 10/16/22 10/19/22 Alfredo Aguiar MD [address] [place] [address] PCP - General Adolescent Medicine 10/20/22 documented as of this encounter
--- OUTSIDE RECORDS SUMMARY | 2025-01-23 15:56 | XMS_ITS | Encounter Summary ---
Author Organization [employer] [facility] Address [address] [place] [address] Care Team Providers Care Delivery Engineer Name Role Phone Alfredo Aguiar MD Primary Care Provider + [phone] Alfredo Aguiar MD Primary Care Provider + [phone] Encounter Details Date Type Department Care Team (Late st Contact Info) Description 05/23/2019 Transcribed Document [facility] [place] [address] ProviderEryn MD [address] [place] [address] Social History Tobacco Use Types Packs/Day Years Used Date Smoking Tobacco: Never Assessed Sex and Gender Information Value Date Recorded Sex Assigned at Not on file Legal Sex Male 5:45 PM CDT Gender Identity Not on file Sexual Orientation Not on file documented as of this encounter Miscellaneous Notes * Cerner Conversion Note - Eryn Arcos MD - 05/23/2019 11:15 AM CDT Central Line Checklist Entered On: 05/23/2019 11:30 EDT Performed On: 05/23/2019 11:15 EDT by Dania Victor RN Central Line Checklist History and Physical on Chart : Yes Central Line Insertion Facility [facility] Central Line Insertion Start Date/Time : 05/23/2019 10:50 EDT Central Catheter Type : Power injection PICC Central Line Lot Number : [id number] Central Line Vessel Cannulated : Brachial vein Central Line Laterality : Right Central Line Number of Lumens : 1 Central Line Insertion Site : Upper arm, right Central Line Insertion Reason : New indication PICC Line Exclusion Criteria : None CL Number of Insertion Attempts: : 1 Modified Seldinger Used : Yes Portable Ultrasound Device : Yes Central Line Clean Hands : Yes Site Preparation Procedure : Chlorhexidine (Chloraprep) if patient is 2 months or older Central IV Full Body Drape Used : Yes Proper Use of Sterile Apparel per Policy : Yes Procedure to be Performed : picc line insertion Time Out Pause Time : 05/23/2019 10:49 EDT All Activity Suspended : Yes Team Verbally Confirms Information : Correct patient identity, Correct side and site are marked, Consent form is present and accurate, Agreement on the procedure to be done, Correct patient position, Confirm the skin prep has dried, Performed in location of procedure after prepped/draped CL Time Out Additional Attendees : Angus Crump, RN/Juliet Etienne RN/Dania Victor RN 1% Lidocaine Amt Used as Anesthetic : 22 mL Central IV Sterile Field Maintained : Yes Central IV Sterile Technique Maintained : Yes Central Line Secure with : Stabilization device Central Line Dressing Dated : Yes RN Notified CL is Approved to be Used : Yes Central Line Tip Location in SVC : Yes Nurse Notified Name : ANGUS CRUMP RN Dania Victor RN - 05/23/2019 11:27 EDT Electronically signed by Wellington [facility] Conversion Industrial Hygiene Technician Cerner at 11/18/2022 9:32 AM CDT documented in this encounter Plan of Treatment Not on file documented as of this encounter Visit Diagnoses Not on filedocumented in this encounter Care Teams Delivery Engineer Relationship Specialty Start Date End Date Alfredo Aguiar MD [address] [place] [address] PCP - General Adolescent Medicine 10/16/22 10/19/22 Alfredo Aguiar MD [address] [place] [address] PCP - General Adolescent Medicine 10/20/22 documented as of this encounter
--- OUTSIDE RECORDS SUMMARY | 2025-01-23 15:56 | XMS_ITS | Encounter Summary ---
Author Organization [employer] Address [address] [place] [address] Care Team Providers Care Sign Builder Supervisor Name Role Phone Alfredo Aguiar MD Primary Care Provider + [phone] Alfredo Aguiar MD Primary Care Provider + [phone] Encounter Details Date Type Department Care Team (Late st Contact Info) Description 08/19/2019 Transcribed Document [facility] [place] [facility] [address] ProviderEryn MD [address] [place] [id number] Social History Tobacco Use Types Packs/Day Years Used Date Smoking Tobacco: Never Assessed Sex and Gender Information Value Date Recorded Sex Assigned at Not on file Legal Sex Male 5:45 PM CDT Gender Identity Not on file Sexual Orientation Not on file documented as of this encounter Miscellaneous Notes * Cerner Conversion Note - Eryn ProviderMD - 08/19/2019 1:59 PM PROBATION SUPERVISOR Final Discharge Planning Entered On: 08/19/2019 13:59 EST Performed On: 08/19/2019 13:59 EST by JUANY HERNANDEZ RN-Identification Printing Machine Setter Final Discharge Planning Discharge Arrangements : Patient Post-Acute Information Patient Name: LORA JAIN JR Gender: Male : 36 Age: 78 Years [place] Referral(s): Service: Organization: Business Address: Phone Number: [facility] [place] [address] [address] [place], [address] Patient Offered Choice/Affiliations Explained : Yes Designation of Choice Signed : Yes Important Medicare Message Reviewed With : Patient Important Medicare Message Reviewed D/T : 08/19/2019 10:00 EST Transportation Needs : JUANY Nice, RN-Identification Printing Machine Setter - 08/19/2019 13:59 EST Electronically signed by Wellington, [facility] Conversion Recycling Worker Cerner at 11/18/2022 9:41 AM CDT documented in this encounter Plan of Treatment Not on file documented as of this encounter Visit Diagnoses Not on filedocumented in this encounter Care Teams Sign Builder Supervisor Relationship Specialty Start Date End Date Alfredo Aguiar MD [address] [place] [address] PCP - General Adolescent Medicine 10/16/22 10/19/22 Alfredo Aguiar MD [address] [place] [address] PCP - General Adolescent Medicine 10/20/22 documented as of this encounter
--- OUTSIDE RECORDS SUMMARY | 2025-01-23 15:56 | XMS_ITS | Encounter Summary ---
Author Organization [employer] Address [address] [place] [address] Care Team Providers Care Corporate Quality Engineer Name Role Phone Alfredo Aguiar MD Primary Care Provider + [phone] Alfredo Aguiar MD Primary Care Provider + [phone] Encounter Details Date Type Department Care Team (Late st Contact Info) Description 08/18/2019 Transcribed Document [facility] [place] [facility] [place] [address] ProviderEryn MD [address] [place] [address] Social History Tobacco Use Types Packs/Day Years Used Date Smoking Tobacco: Never Assessed Sex and Gender Information Value Date Recorded Sex Assigned at Not on file Legal Sex Male 5:45 PM CDT Gender Identity Not on file Sexual Orientation Not on file documented as of this encounter Miscellaneous Notes * Cerner Conversion Note - Eryn ProviderMD - 08/18/2019 6:00 PM FACTORY MACHINE COMPUTER OPERATOR Pain Assessment Entered On: 08/18/2019 21:08 EST Performed On: 08/18/2019 20:01 EST by Jess Reno Intervention Information: acetaminophen Performed by MATT JAIN RN on 08/18/2019 19:01:00 EST acetaminophen,1000mg Oral Pain Assessment Pain Assessment : Follow-up assessment Pain Scale Goal : 4 Pain Scale Used : 0-10 Scale Jess Reno - 08/18/2019 21:08 EST Pain Scale Intensity : 3 Jess Reno - 08/18/2019 21:08 EST Image 4 - Images currently included in the form version of this document have not been included in the text rendition version of the form. documented in this encounter Plan of Treatment Not on file documented as of this encounter Visit Diagnoses Not on filedocumented in this encounter Care Teams Corporate Quality Engineer Relationship Specialty Start Date End Date Alfredo Aguiar MD [address] [place] [address] PCP - General Adolescent Medicine 10/16/22 10/19/22 Alfredo Aguiar MD [address] [place] [address] PCP - General Adolescent Medicine 10/20/22 documented as of this encounter
--- OUTSIDE RECORDS SUMMARY | 2025-01-23 15:56 | XMS_ITS | Encounter Summary ---
Author Organization [employer] Address [address] [place] [address] Care Team Providers Care Early Childhood Teacher Name Role Phone Alfredo Aguiar MD Primary Care Provider + [phone] Alfredo Aguiar MD Primary Care Provider + [phone] Encounter Details Date Type Department Care Team (Late st Contact Info) Description 05/21/2019 Transcribed Document [facility] [place] [facility] [place] [address] ProviderEryn MD [address] [place] [id number] Social History Tobacco Use Types Packs/Day Years Used Date Smoking Tobacco: Never Assessed Sex and Gender Information Value Date Recorded Sex Assigned at Not on file Legal Sex Male 5:45 PM CDT Gender Identity Not on file Sexual Orientation Not on file documented as of this encounter Miscellaneous Notes * Cerner Conversion Note - Eryn ProviderMD - 05/21/2019 1:58 PM CDT Attempt to Treat, OT Entered On: 05/21/2019 14:01 EDT Performed On: 05/21/2019 13:58 EDT by YEIMI WALKER OTR/Jacobo Attempt to Treat Inability to Treat Comment : in room with patient for extended period of time. Will follow up as schedule allows. YEIMI WALKER OTR/Jacobo - 05/21/2019 13:58 EDT documented in this encounter Plan of Treatment Not on file documented as of this encounter Visit Diagnoses Not on filedocumented in this encounter Care Teams Early Childhood Teacher Relationship Specialty Start Date End Date Alfredo Aguiar MD [address] [place] [address] PCP - General Adolescent Medicine 10/16/22 10/19/22 Alfredo Aguiar MD [address] [place] [address] PCP - General Adolescent Medicine 10/20/22 documented as of this encounter
--- OUTSIDE RECORDS SUMMARY | 2025-01-23 15:56 | XMS_ITS | Encounter Summary ---
Author Organization [employer] Address [address] [place] [address] Care Team Providers Care Core Driller Name Role Phone Alfredo Aguiar MD Primary Care Provider + [phone] Alfredo Aguiar MD Primary Care Provider + [phone] Encounter Details Date Type Department Care Team (Late st Contact Info) Description 05/22/2019 Transcribed Document [facility] [place] [facility] [place] [address] ProviderEryn MD [address] [place] [id number] Social History Tobacco Use Types Packs/Day Years Used Date Smoking Tobacco: Never Assessed Sex and Gender Information Value Date Recorded Sex Assigned at Not on file Legal Sex Male 5:45 PM CDT Gender Identity Not on file Sexual Orientation Not on file documented as of this encounter Miscellaneous Notes * Cerner Conversion Note - Eryn ProviderMD - 05/22/2019 12:00 AM CDT Pain Assessment Entered On: 05/22/2019 4:48 EDT Performed On: 05/21/2019 23:30 EDT by Meagan Tracey RN-Resource Intervention Information: acetaminophen Performed by Maegan Tracey RN-Resource on 05/21/2019 22:30:00 EDT acetaminophen,1000mg Oral Pain Assessment Pain Assessment : Follow-up assessment Pain Scale Goal : 3 Pain Scl Goal Comment : pt sleeping Maegan Tracey RN-Resource - 05/22/2019 4:48 EDT Electronically signed by Wellington raudel Conversion Pharmacy Technician Infusion Cerner at 11/18/2022 9:38 AM CDT documented in this encounter Plan of Treatment Not on file documented as of this encounter Visit Diagnoses Not on filedocumented in this encounter Care Teams Core Driller Relationship Specialty Start Date End Date Alfredo Aguiar MD [address] [place] [address] PCP - General Adolescent Medicine 10/16/22 10/19/22 Alfredo Aguiar MD [address] [place] [address] PCP - General Adolescent Medicine 10/20/22 documented as of this encounter
--- OUTSIDE RECORDS SUMMARY | 2025-01-23 15:56 | XMS_ITS | Encounter Summary ---
Author Organization [employer] Address [address] [place] [address] Care Team Providers Care Dye Mixer Name Role Phone Alfredo Aguiar MD Primary Care Provider + [phone] Alfredo Aguiar MD Primary Care Provider + [phone] Encounter Details Date Type Department Care Team (Late st Contact Info) Description 05/23/2019 Transcribed Document [facility] [place] [facility] [place] [address] ProviderEryn MD [address] [place] [address] Social History Tobacco Use Types Packs/Day Years Used Date Smoking Tobacco: Never Assessed Sex and Gender Information Value Date Recorded Sex Assigned at Not on file Legal Sex Male 5:45 PM CDT Gender Identity Not on file Sexual Orientation Not on file documented as of this encounter Miscellaneous Notes * Cerner Conversion Note - Eryn Arcos MD - 05/23/2019 1:23 PM CDT Final Discharge Planning Entered On: 05/23/2019 13:25 EDT Performed On: 05/23/2019 13:23 EDT by JUANY HERNANDEZ RN-Emery Grinder Final Discharge Planning Discharge Arrangements : Patient Post-Acute Information Patient Name: LORA JAIN JR Gender: Male : [birth year] Age: 78 Years Ryanasptiffany Referral(s): Service: Organization: Business Address: Phone Number: Snf Facility [facility] [address] [place], [address] Patient Offered Choice/Affiliations Explained : Yes Designation of Choice Signed : Yes Important Medicare Message Reviewed With : Patient Important Medicare Message Reviewed D/T : 05/23/2019 8:30 EDT Transportation Needs : Wheelchair van Discharge Transportation Arrangement Cmt : [facility] Van @ [id number] Follow Up Appointment Scheduled : Yes Is Patient High/Moderate Readmission Risk? : No Patient/Family Notified of Plan : Yes Support Person/Pt Rep Notified of Plan : Yes Is Patient Ready for Discharge? : Yes Physician Notified Patient is Ready for Discharge? : Yes Discharge To Care Management : SNF with Medicare Certification-03 JUANY HERNANDEZ RN-Emery Grinder - 05/23/2019 13:23 EDT Electronically signed by [place], [facility] Conversion General Ophthalmologist Cerner at 11/18/2022 9:26 AM CDT documented in this encounter Plan of Treatment Not on file documented as of this encounter Visit Diagnoses Not on filedocumented in this encounter Care Teams Dye Mixer Relationship Specialty Start Date End Date Alfredo Aguiar MD [address] [place] [address] PCP - General Adolescent Medicine 10/16/22 10/19/22 Alfredo Aguiar MD [address] [place] [address] PCP - General Adolescent Medicine 10/20/22 documented as of this encounter
--- OUTSIDE RECORDS SUMMARY | 2025-01-23 15:56 | XMS_ITS | Encounter Summary ---
Author Organization [employer] Address [address] [place] [address] Care Team Providers Care Pocket Machine Operator Name Role Phone Alfredo Lackey MD Primary Care Provider + [phone] Alfredo Lackey MD Primary Care Provider + [phone] Encounter Details Date Type Department Care Team (Late st Contact Info) Description 05/23/2019 Transcribed Document [facility] [place] [facility] [place] [address] ProviderEryn MD [address] [place] [address] Social History Tobacco Use Types Packs/Day Years Used Date Smoking Tobacco: Never Assessed Sex and Gender Information Value Date Recorded Sex Assigned at Not on file Legal Sex Male 5:45 PM CDT Gender Identity Not on file Sexual Orientation Not on file documented as of this encounter Miscellaneous Notes * Cerner Conversion Note - Eryn Arcos MD - 05/23/2019 6:57 AM CDT Patient: LORA JAIN JR Age: 78 Years Sex: Male : 1940 Admit Date 05/20/2019 06:54 Discharge Date 05/23/2019 Primary Care Provider ALFREDO LACKEY (REF)[facility] Discharge Diagnosis Left total knee arthroplasty resection with placement of implant-based antibiotic spacer Procedures SN - Proc - Procedure: Knee Total Joint Revision (05/20/19 14:00:44) Reason for Hospitalization Mr. Jain is a very pleasant 78-year-old gentleman in [...] in detail and he voiced his agreement. Hospital Course Patient was taken to the operating room on date of admission where they underwent the aforementioned procedure without complication. They were then transferred to the floor for postoperative care including PT & OT, consultation of hospitalist for medical care, and discharge planning by nurse navigator. Infectious diseases consulted for antimicrobial management. PICC line placement achieved on postop day 3. Intra operative cultures negative thus far. Vital Signs T: 36.7 ??C TMIN: 36.6 ??C TMAX: 37.1 ??C HR: 95(Monitored) RR: 18 BP: 118/88 SpO2: 92% Oxygen Settings (Last) Oxygen Therapy Mode: Room air (05/23/19 06:00:00) Oxygen Flow Rate: 0 Liter/Min (05/20/19 18:25:00) Physical Exam The dressing is clean dry secure. The operative extremity is neurovascularly intact with the exception to which is attributed to peripheral nerve block. Compartments are soft. HV drain secure, no output. Knee lagging extension Discharge Disposition shelter facility Discharge Follow Up 3 weeks, [facility] orthopedics Discharge Medications (13) Active bisoprolol 5 mg, Oral, Daily Colace 100 mg oral capsule 100 mg = 1 Cap, PRN, Oral, BID Eliquis 2.5 mg oral tablet 2.5 mg = 1 Tab, Oral, BID ferrous sulfate 325 mg (65 mg elemental iron) oral delayed release tablet 325 mg = 1 Tab, Oral, Daily insulin lispro 100 units/mL injectable solution 23 Units, SubCutaneous, With Lunch metFORMIN 1,000 mg, Oral, BID NovoLOG Mix 70/30 FlexPen 35 Units, SubCutaneous, AC Breakfast NovoLOG Mix 70/30 FlexPen 21 Units, SubCutaneous, AC Dinner omeprazole 20 mg, Oral, At Bedtime Percocet 5/325 oral tablet 1 Tab, PRN, Oral, Q4H Rocephin 2 Gram, IV Piggyback, [id number] duration per ID at [facility] Spiriva Respimat 2.5 mcg/inh inhalation aerosol 2 Puff, Inhalation, Daily Viibryd 40 mg, Oral, At Bedtime Code Status Start: 05/20/19 16:51:00 EDT, Full Code, Continuous Order Condition on Discharge Stable Consulting Physicians JUVENAL DE JESUS MD-ANS ANGELIA CADENA MD-INT DELMIS MORRIS MD-INF (Infectious disease) - infected TKA WENDIE DONATO MD-INF Current Diet Order Diet, Adult - Ordered -- Start: 05/21/19 14:11:00 EDT, 60 gm carbs:[id number] randa, Isolation: Standard Precautions, Instructions: Diabetic Diet Patient Discharge Summary Orders Patient is touchdown weightbearing. The patient should minimize ambulation, and focus on copious ice and elevation to reduce swelling. Knee immobilizer at all times, no knee flexion. OK to do hamstring stretch. Bilateral thigh-high LEON hose should be worn 21+ hours per day for 6 weeks for DVT prophylaxis. Dressings remain in place for 7-10 days, during which time the patient may shower. This provided the margins of the dressing are intact. Dressings then can be removed and incision left open to air. Any wound drainage should this be reported to the orthopedic office. Continuous use of cryotherapy as needed for pain and swelling. Recommended as one hour of every 3. Increase protein in diet Follow Up Labs/Studies Intraoperative cultures Pending Labs Collected Pathology Tissue Request 05/20/19 14:39:00 EDT, Collected, RT - Routine, 05/20/19 14:39:00 EDT, PRESTON ALANIS RN, Specimen Type: AP Specimen, Specimen Desc: LEFT KNEE EXPLANTED HARDWARE, LEFT KNEE INFECTED TOTAL KNEE, Pre-Op Dx: LEFT KNEE INFECTED TOTAL KNEE, Print Label... Preliminary Culture Anaerobic Specimen Type: Tissue, From: Knee L, Routine collect, Collected, 05/20/19 15:06:00 EDT, 1-Time, Stop: 05/20/19 15:06:00 EDT, Nurse Collect, Specimen Desc: LEFT KNEE SYNOVIUM 4, Print Label By Order Location Culture Tissue and Stain Specimen Type: Tissue, From: Knee L, Routine collect, Collected, 05/20/19 15:06:00 EDT, 1-Time, Stop: 05/20/19 15:06:00 EDT, Nurse Collect, Specimen Desc: LEFT KNEE SYNOVIUM 4, Print Label By Order Location Culture Anaerobic Specimen Type: Tissue, From: Knee L, Routine collect, Collected, 05/20/19 15:01:00 EDT, 1-Time, Stop: 05/20/19 15:01:00 EDT, Nurse Collect, Specimen Desc: LEFT KNEE SYNOVIUM 3, Print Label By Order Location Culture Tissue and Stain Specimen Type: Tissue, From: Knee L, Routine collect, Collected, 05/20/19 15:01:00 EDT, 1-Time, Stop: 05/20/19 15:01:00 EDT, Nurse Collect, Specimen Desc: LEFT KNEE SYNOVIUM 3, Print Label By Order Location Culture Anaerobic Specimen Type: Tissue, From: Knee L, Routine collect, Collected, 05/20/19 14:51:00 EDT, 1-Time, Stop: 05/20/19 14:51:00 EDT, Nurse Collect, Specimen Desc: LEFT KNEE SYNOVIUM 2, Print Label By Order Location Culture Tissue and Stain Specimen Type: Tissue, From: Knee L, Routine collect, Collected, 05/20/19 14:51:00 EDT, 1-Time, Stop: 05/20/19 14:51:00 EDT, Nurse Collect, Specimen Desc: LEFT KNEE SYNOVIUM 2, Print Label By Order Location Culture Anaerobic Specimen Type: Tissue, From: Knee L, Routine collect, Collected, 05/20/19 14:46:00 EDT, 1-Time, Stop: 05/20/19 14:46:00 EDT, Nurse Collect, Specimen Desc: LEFT KNEE SYNOVIUM 1, Print Label By Order Location Culture Tissue and Stain Specimen Type: Tissue, From: Knee L, Routine collect, Collected, 05/20/19 14:46:00 EDT, 1-Time, Stop: 05/20/19 14:46:00 EDT, Nurse Collect, Specimen Desc: LEFT KNEE SYNOVIUM 1, Print Label By Order Location Culture Anaerobic Specimen Type: Surgical Swab, From: Knee L, Routine collect, Collected, 05/20/19 14:43:00 EDT, 1-Time, Stop: 05/20/19 14:43:00 EDT, Nurse Collect, Specimen Desc: LEFT KNEE JOINT, Print Label By Order Location Culture Wound and Stain Specimen Type: Surgical Swab, From: Knee L, Routine collect, Collected, 05/20/19 14:43:00 EDT, 1-Time, Stop: 05/20/19 14:43:00 EDT, Nurse Collect, Specimen Desc: LEFT KNEE JOINT, Print Label By Order Location Stain Culture AFB and Stain Specimen Type: Tissue, From: Knee L, Routine collect, Collected, 05/20/19 15:06:00 EDT, 1-Time, Stop: 05/20/19 15:06:00 EDT, Nurse Collect, Specimen Desc: LEFT KNEE SYNOVIUM 4, Print Label By Order Location Culture Fungus Specimen Type: Tissue, From: Knee L, Routine collect, Collected, 05/20/19 15:06:00 EDT, 1-Time, Stop: 05/20/19 15:06:00 EDT, Nurse Collect, Specimen Desc: LEFT KNEE SYNOVIUM 4, Print Label By Order Location Culture AFB and Stain Specimen Type: Tissue, From: Knee L, Routine collect, Collected, 05/20/19 15:01:00 EDT, 1-Time, Stop: 05/20/19 15:01:00 EDT, Nurse Collect, Specimen Desc: LEFT KNEE SYNOVIUM 3, Print Label By Order Location Culture Fungus Specimen Type: Tissue, From: Knee L, Routine collect, Collected, 05/20/19 15:01:00 EDT, 1-Time, Stop: 05/20/19 15:01:00 EDT, Nurse Collect, Specimen Desc: LEFT KNEE SYNOVIUM 3, Print Label By Order Location Culture AFB and Stain Specimen Type: Tissue, From: Knee L, Routine collect, Collected, 05/20/19 14:51:00 EDT, 1-Time, Stop: 05/20/19 14:51:00 EDT, Nurse Collect, Specimen Desc: LEFT KNEE SYNOVIUM 2, Print Label By Order Location Culture Fungus Specimen Type: Tissue, From: Knee L, Routine collect, Collected, 05/20/19 14:51:00 EDT, 1-Time, Stop: 05/20/19 14:51:00 EDT, Nurse Collect, Specimen Desc: LEFT KNEE SYNOVIUM 2, Print Label By Order Location Culture AFB and Stain Specimen Type: Tissue, From: Knee L, Routine collect, Collected, 05/20/19 14:46:00 EDT, 1-Time, Stop: 05/20/19 14:46:00 EDT, Nurse Collect, Specimen Desc: LEFT KNEE SYNOVIUM 1, Print Label By Order Location Culture Fungus Specimen Type: Tissue, From: Knee L, Routine collect, Collected, 05/20/19 14:46:00 EDT, 1-Time, Stop: 05/20/19 14:46:00 EDT, Nurse Collect, Specimen Desc: LEFT KNEE SYNOVIUM 1, Print Label By Order Location Culture Fungus Specimen Type: Surgical Swab, From: Knee L, Routine collect, Collected, 05/20/19 14:43:00 EDT, 1-Time, Stop: 05/20/19 14:43:00 EDT, Nurse Collect, Specimen Desc: LEFT KNEE JOINT, Print Label By Order Location Culture AFB and Stain Specimen Type: Surgical Swab, From: Knee L, Routine collect, Collected, 05/20/19 14:44:00 EDT, 1-Time, Stop: 05/20/19 14:44:00 EDT, Nurse Collect, Specimen Desc: LEFT KNEE JOINT, Print Label By Order Location Electronically signed by [place], [facility] Conversion Farm Product Purchaser Cerner at 11/18/2022 9:27 AM CDT documented in this encounter Plan of Treatment Not on file documented as of this encounter Visit Diagnoses Not on filedocumented in this encounter Care Teams Pocket Machine Operator Relationship Specialty Start Date End Date Alfredo Lackey MD [address] [place] [address] PCP - General Adolescent Medicine 10/16/22 10/19/22 Alfredo Lackey MD [address] [place] [address] PCP - General Adolescent Medicine 10/20/22 documented as of this encounter
--- OUTSIDE RECORDS SUMMARY | 2025-01-23 15:56 | XMS_ITS | Encounter Summary ---
Author Organization [employer] Address [address] [place] [address] Care Team Providers Care Saxophone Assembler Name Role Phone Alfredo Aguiar MD Primary Care Provider + [phone] Alfredo Aguiar MD Primary Care Provider + [phone] Encounter Details Date Type Department Care Team (Late st Contact Info) Description 05/23/2019 Transcribed Document [facility] [place] [facility] [place] [address] ProviderEryn MD [address] [place] [id number] Social History Tobacco Use Types Packs/Day Years Used Date Smoking Tobacco: Never Assessed Sex and Gender Information Value Date Recorded Sex Assigned at Not on file Legal Sex Male 5:45 PM CDT Gender Identity Not on file Sexual Orientation Not on file documented as of this encounter Miscellaneous Notes * Cerner Conversion Note - Eryn Arcos MD - 05/23/2019 4:01 PM CDT Discharge Summary, PT Entered On: 05/23/2019 16:03 EDT Performed On: 05/23/2019 16:01 EDT by Guillermo Estevez, PT Discharge Summary Discharge Summary Provider Notified : Nursing Reason for Discharge : Discharged from hospital Discharge Summary Comment, PT : Pt [facility]. Pt was able to ambulate 32' with Ade and maintain TTWB on the L LE. Pt met 0/1 STG and 0/2 LTG prior to disc. Guillermo Estevez, PT - 05/23/2019 16:01 EDT Short Term Goals Ambulation STG Grid Goal #1 Device : Walker, front wheel Distance : 75 feet TTWB Left Assist : Supervision or set-up Date to Meet : 05/24/2019 EDT Goal Status : Not met Guillermo Estevez, PT - 05/23/2019 16:01 EDT Condenser Winder Goals Mobility/Bed Mobility LTG PT Grid Goal #1 Activity : Supine to sit Assist : Independent, modified Date to Meet : 06/04/2019 EDT Goal Status : Not met Guillermo Estevez, PT - 05/23/2019 16:01 EDT Ambulation LTG Grid Goal #1 Device : Walker, front wheel Distance : 150 feet TTWB Left Cues : No cues Assist : Supervision or set-up Date to Meet : 06/04/2019 EDT Goal Status : Not met Guillermo Estevez, PT - 05/23/2019 16:01 EDT Electronically signed by [place] [facility] Conversion Oil Separator Cerner at 11/18/2022 9:24 AM CDT documented in this encounter Plan of Treatment Not on file documented as of this encounter Visit Diagnoses Not on filedocumented in this encounter Care Teams Saxophone Assembler Relationship Specialty Start Date End Date Alfredo Aguiar MD [address] [place] [address] PCP - General Adolescent Medicine 10/16/22 10/19/22 Alfredo Aguiar MD [address] [place] [address] PCP - General Adolescent Medicine 10/20/22 documented as of this encounter
--- OUTSIDE RECORDS SUMMARY | 2025-01-23 15:56 | XMS_ITS | Encounter Summary ---
Author Organization [facility] Address [address] [place] [address] Care Team Providers Care Fur Glazer Name Role Phone Alfredo Lackey MD Primary Care Provider + [phone] Alfredo Lackey MD Primary Care Provider + [phone] Encounter Details Date Type Department Care Team (Late st Contact Info) Description 05/23/2019 Transcribed Document [facility] Family Medicine [place] [address] ProviderEryn MD [address] [place] [id number] Social History Tobacco Use Types Packs/Day Years Used Date Smoking Tobacco: Never Assessed Sex and Gender Information Value Date Recorded Sex Assigned at Not on file Legal Sex Male 5:45 PM CDT Gender Identity Not on file Sexual Orientation Not on file documented as of this encounter Miscellaneous Notes * Cerner Conversion Note - Eryn Arcos MD - 05/23/2019 3:41 [place] [address] LORA JAIN JR :1940 Visit Time:05/20/2019 Your Visit Summary Your Care Team Admitting Physician - LION DAVIS MD-ORT Attending Physician - LION DAVIS MD-NELDA Primary Care Physician - ALFREDO LACKEY (REF), -[facility] Referring Physician - LION DAVIS MD-ORT PHY, NONE Your Diagnosis Acute kidney injury superimposed on CKDstage III Asthma CA - Cancer of prostate (hx of) Chronic infection of knee joint prosthesis GERD - Gastro-esophageal reflux disease (occasional) Hypertension affecting Hyponatremia 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 and spacer was on antibiotic placement Uncontrolled diabetes mellitus Discharge Vitals Temperature 36.6 ??C Heart Rate (Monitored) 84 Respiratory Rate 18 Blood Pressure 119/72 What to do next Follow-Up Appointments Follow Up with WENDIE DONATO MD-INF When 05/31/2019 11:15 AM EDT Where: [address] [facility] [address] [place] [address]- Follow Up with LION DAVIS MD-ORT When Within 3 weeks Where: [address] [place] [address]- Medications What How Much When Instructions Next Dose acetaminophen-oxyCODONE (Percocet 5/ 325 oral tablet) 1 Tablet(s) Oral Every 4 Hours as needed for as needed for pain not to exceed 5 tablets/ day Printed Prescription apixaban (Eliquis 2.5 mg oral tablet) 1 Tablet(s) Oral Two Times A Day Printed Prescription cefTRIAXone (Rocephin) 2 Gram(s) IV Piggyback Interval Every 24 Hours docusate (Colace 100 mg oral capsule) 1 Capsule(s) Oral Two Times A Day as needed for for constipation Printed Prescription ferrous sulfate (ferrous sulfate 325 mg (65 mg elemental iron) oral delayed release tablet) 1 Tablet(s) Oral Every Day Printed Prescription insulin lispro (insulin lispro 100 units/ mL injectable solution) 23 Unit(s) SubCutaneous With Lunch insulin aspart-insulin aspart protamine (NovoLOG Mix 70/ 30 FlexPen) 35 Unit(s) SubCutaneous Before Breakfast insulin aspart-insulin aspart protamine (NovoLOG Mix 70/ 30 FlexPen) 21 Unit(s) SubCutaneous Before Dinner bisoprolol 5 Milligram(s) Oral Every Day metFORMIN 1,000 Milligram(s) Oral Two Times A Day omeprazole 20 Milligram(s) Oral At Bedtime tiotropium (Spiriva Respimat 2.5 mcg/ inh inhalation aerosol) 2 Puff(s) Inhalation Every Day vilazodone (Viibryd) 40 Milligram(s) Oral At Bedtime Take your medications faithfully. Do NOT skip medication. Do NOT stop taking medications without the direction of a physician. Carry a list of your medications with you at all times, and take this medication list with you to your first follow up visit. Report any side effects. Avoid herbal remedies unless discussed with your physician. As part of your treatment plan, your physician may have prescribed a limited course of a controlled substance. This medication may be given to help people with moderate or severe pain or for other medical conditions, but there are risks involved with treatment. Common side effects may include nausea, constipation, drowsiness, sweating, itching, dry mouth, and rash. More serious side effects may include cognitive and motor impairment, like problems with thinking, concentrating, alertness, and movement (e.g. slowed reflexes), and driving and operating heavy machinery can be dangerous. It is important for you to talk to your physician if you have these side effects or questions. These controlled substances can produce physical dependence and be habit-forming if taken for an extended period of time, which means that the body has gotten used to them and may experience withdrawal symptoms if they are abruptly stopped. Withdrawal symptoms can include runny nose, sweating, goose bumps, diarrhea, abdominal cramping, rapid heartbeat, difficulty sleeping, and nervousness. Please dispose of unused and medications per your retail pharmacy guidance. Allergies No Known Allergies Immunizations This Visit No Immunizations Found Education Materials Discharge Instructions for Total Knee Replacement Your [...] before and after changing the dressing. Activity ??? You may put weight on your leg when you walk, unless your surgeon tells you not differently. Use your walker until the therapist or surgeon say you do not need it anymore. Continue your exercises from physical therapy. ??? Complete straightening exercises (whether using Zero Knee Foam or ???Tubs?? ) AT LEAST three times a day for 30 minutes, keep toes pointed to ceiling. Keep knee straight and extended unless you are doing bending exercises. No pillow under knee. ??? Stay active, get up every 1-2 hours, walk short distances, and walk a little more each week. No driving until cleared by your surgeon. ??? If your surgeon has ordered support hose, wear them for 6 weeks in order to prevent blood clots. Take them off 1-2 times per day for about 30 minutes-1 hour. Check your skin for red or open areas under the hose. They can be bought online and at many pharmacies, be sure that compression is 15-20mmHg and that they are thigh-high. ??? If you have a CPM, use it 2 hours 2x/day. ??? For swelling, elevate your leg above your heart. Remember to keep knee straight and NOT bent, unless you are doing your bending exercises. ??? Cold therapy 30 minutes on and 30 minutes off with cloth or clothing between skin and cold wrap. General Instructions: ??? Eat 25-35 grams of fiber every day. [...] your home health nurse or surgeon office. ??? Continue using your incentive spirometer to keep fever and lung infection away. Aim for 10 breaths every hour while you are awake. ??? Take pain medicine as needed, especially before therapy. ??? Let your doctors and dentist know you [...] weakness, slurred speech, difficulty speaking or understanding apixaban (a PIX a ban) Nabil What is the most important information I should know about apixaban? Apixaban increases your risk of severe or fatal bleeding, especially if you take certain medicines at the same time (including some naej-peu-mpbnfqs medicines). It is very important to tell your doctor about all medicines you have recently used. Call your doctor at once if you have signs of bleeding such as: swelling, pain, feeling very weak or dizzy, bleeding gums, nosebleeds, heavy menstrual periods or abnormal vaginal bleeding, blood in your urine, bloody or tarry stools, coughing up blood or vomit that looks like coffee grounds, or any bleeding that will not stop. Apixaban can cause a very serious blood clot around your spinal cord if you undergo a spinal tap or receive spinal anesthesia (epidural), especially if you have a genetic spinal defect, if you have a spinal catheter in place, if you have a history of spinal surgery or repeated spinal taps, or if you are also using other drugs that can affect blood clotting. This type of blood clot can lead to long-term or permanent paralysis. Get emergency medical help if you have symptoms of a spinal cord blood clot such as back pain, numbness or muscle weakness in your lower body, or loss of bladder or bowel control. Do not stop taking apixaban unless your doctor tells you to. Stopping suddenly can increase your risk of blood clot or stroke. What is apixaban? Apixaban is used to lower the risk of stroke caused by a blood clot in people with a heart rhythm disorder called atrial fibrillation. Apixaban is also used after hip or knee replacement surgery to prevent a type of blood clot called deep vein thrombosis (DVT), which can lead to blood clots in the lungs (pulmonary embolism). Apixaban is also used to treat DVT or pulmonary embolism (PE), and to lower your risk of having a repeat DVT or PE. Apixaban may also be used for purposes not listed in this medication guide. What should I discuss with my healthcare provider before taking apixaban? You should not take apixaban if you are allergic to it, or if you have active bleeding from a surgery, injury, or other cause. Apixaban may cause you to bleed more easily, especially if you have a bleeding disorder that is inherited or caused by disease. Tell your doctor if you have an artificial heart valve, or if you have ever had: ?? liver or kidney disease; ?? if you are older than 80; or ?? if you weigh less than 132 pounds (60 kilograms). Apixaban can cause a very serious blood clot around your spinal cord if you undergo a spinal tap or receive spinal anesthesia (epidural). This type of blood clot could cause long-term paralysis, and may be more likely to occur if: ?? you have a spinal catheter in place or if a catheter has been recently removed; ?? you have a history of spinal surgery or repeated spinal taps; ?? you have recently had a spinal tap or epidural anesthesia; ?? you are taking an NSAID (nonsteroidal anti-inflammatory drug)--aspirin, ibuprofen (Advil, Motrin), naproxen (Aleve), diclofenac, indomethacin, meloxicam, and others; or ?? you are using other medicines to treat or prevent blood clots. Taking apixaban may increase the risk of bleeding while you are or during your delivery. Tell your doctor if you are or plan to become . You should not breast-feed while using this medicine. How should I take apixaban? Follow all directions on your prescription label and read all medication guides or instruction sheets. Your doctor may occasionally change your dose. Use the medicine exactly as directed. You may take apixaban with or without food. If you cannot swallow a tablet whole, crush and mix it with water, apple juice, or a spoonful of applesauce. Swallow the mixture right away without chewing. Do not save it for later use. A crushed tablet mixture may also be given through a nasogastric (NG) feeding tube. Read and carefully follow any Instructions for Use provided with your medicine. Ask your doctor or pharmacist if you do not understand these instructions. Apixaban can make it easier for you to bleed, even from a minor injury. Seek medical attention if you have bleeding that will not stop. If you need surgery or dental work, tell the doctor or dentist ahead of time if you have taken apixaban within the past 24 hours. You may need to stop taking apixaban for a short time. Do not stop taking apixaban unless your doctor tells you to. Stopping suddenly can increase your risk of blood clot or stroke. If you stop taking apixaban for any reason, your doctor may prescribe another medication to prevent blood clots until you start taking apixaban again. Store at room temperature away from moisture and heat. What happens if I miss a dose? Take the missed dose on the same day you remember it. Take your next dose at the regular time and stay on your twice-daily schedule. Do not take two doses at one time. Get your prescription refilled before you run out of medicine completely. What happens if I overdose? Seek emergency medical attention or call the Poison Help line at . What should I avoid while taking apixaban? Avoid activities that may increase your risk of bleeding or injury. Use extra care to prevent bleeding while shaving or brushing your teeth. What are the possible side effects of apixaban? Get emergency medical help if you have signs of an allergic reaction: hives; chest pain, wheezing, difficult breathing; feeling light-headed; swelling of your face, lips, tongue, or throat. Also seek emergency medical attention if you have symptoms of a spinal blood clot: back pain, numbness or muscle weakness in your lower body, or loss of bladder or bowel control. Call your doctor at once if you have: ?? easy bruising, unusual bleeding (nose, mouth, vagina, or rectum), bleeding from wounds or needle injections, any bleeding that will not stop; ?? heavy menstrual periods; ?? headache, dizziness, weakness, feeling like you might pass out; ?? urine that looks red, pink, or brown; or ?? black or bloody stools, coughing up blood or vomit that looks like coffee grounds. This is not a complete list of side effects and others may occur. Call your doctor for medical advice about side effects. You may report side effects to FDA at 3-124-DPB-4493. What other drugs will affect apixaban? Sometimes it is not safe to use certain medications at the same time. Some drugs can affect your blood levels of other drugs you take, which may increase side effects or make the medications less effective. Many other drugs (including some vyac-lnh-ahcwkqa medicines) can increase your risk of bleeding or blood clots, or your risk of developing blood clots around the brain or spinal cord during a spinal tap or epidural. It is very important to tell your doctor about all medicines you have recently used, especially: ?? any other medicines to treat or prevent blood clots; ?? a blood thinner such as heparin or warfarin (Coumadin, Jantoven); ?? an antidepressant; or ?? an NSAID (nonsteroidal anti-inflammatory drug) used joint terminal attack controller. This list is not complete and many other drugs may affect apixaban. This includes prescription and sbbb-gob-xsaizua medicines, vitamins, and herbal products. Not all possible drug interactions are listed here. Where can I get more information? Your pharmacist can provide more information about apixaban. Remember, keep this and all other medicines out of the reach of children, never share your medicines with others, and use this medication only for the indication prescribed. Every effort has been made to ensure that the information provided by [employer]') is accurate, up-to-date, and complete, but no guarantee is made to that effect. Drug information contained herein may be time sensitive. [employer] information has been compiled for use by healthcare practitioners and consumers in the [place] and therefore [employer] does not warrant that uses outside of the [place] are appropriate, unless specifically indicated otherwise. [employer]'s drug information does not endorse drugs, diagnose patients or recommend therapy. [employer] drug information is an informational resource designed to assist licensed healthcare practitioners in caring for their patients and/or to serve consumers viewing this service as a supplement to, and not a substitute for, the expertise, skill, knowledge and judgment of healthcare practitioners. The absence of a warning for a given drug or drug combination in no way should be construed to indicate that the drug or drug combination is safe, effective or appropriate for any given patient. [employer] does not assume any responsibility for any aspect of healthcare administered with the aid of information [employer] provides. The information contained herein is not intended to cover all possible uses, directions, precautions, warnings, drug interactions, allergic reactions, or adverse effects. If you have questions about the drugs you are taking, check with your doctor, nurse or pharmacist. Copyright 8156-2895 [employer]. Version: 4.01. Revision Date: 01/21/2019. docusate (oral/rectal) (LUDIVINA white) Colace, Diocto, Doc-Q-Lace, Docu, Doculase, Docusil, Docusoft S, DocuSol, Dulcolax Stool Softener, Enemeez Mini, Benito-Tin, Pedia-Lax Stool Softener, Milan Stool Softener, Promolaxin, Silace, Surfak Stool Softener, Nicol-Q-Lax What is the most important information I should know about docusate? You should not use docusate if you also use mineral oil, unless your doctor tells you to. What is docusate? Docusate is a stool softener that makes bowel movements softer and easier to pass. Docusate is used to relieve occasional constipation (irregularity). There are many brands and forms of docusate available. Not all brands are listed on this leaflet. Docusate may also be used for purposes not listed in this medication guide. What should I discuss with my healthcare provider before using docusate? You should not use docusate if you are allergic to it. Ask a doctor or pharmacist if this medicine is safe to use if you have: ?? stomach pain; ?? nausea; ?? vomiting; or ?? a sudden change in bowel habits that lasts over 2 weeks. Ask a doctor before using this medicine if you are or . Do not give this medicine to a child without medical advice. How should I use docusate? Use exactly as directed on the label, or as prescribed by your doctor. Drink plenty of liquids while you are using docusate. Measure liquid medicine carefully. Use the dosing syringe provided, or use a medicine dose-measuring device (not a kitchen spoon). Do not take the rectal enema by mouth. Rectal medicine is for use only in the rectum. Wash your hands before and after using the enema. To use the enema, lie on your left side with your left leg extended and your right leg slightly bent. Remove the cap from the applicator tip and gently insert the tip into your rectum. Slowly squeeze the bottle to empty the contents into the rectum. After using the enema, lie down on your left side for at least 30 minutes to allow the liquid to distribute throughout your intestines. Avoid using the bathroom, and hold in the enema at least 1 hour, or all night if possible. Read and carefully follow any Instructions for Use provided with your medicine. Ask your doctor or pharmacist if you do not understand these instructions. Docusate generally produces bowel movement in 12 to 72 hours. Call your doctor if your symptoms do not improve after 72 hours. You should not use docusate for longer than 1 week, unless your doctor tells you to. Store at room temperature away from moisture and heat. Do not freeze liquid medicine. What happens if I miss a dose? Since docusate is used when needed, you may not be on a dosing schedule. Skip any missed dose if it's almost time for your next dose. Do not use two doses at one time. What happens if I overdose? Seek emergency medical attention or call the Poison Help line at . What should I avoid while using docusate? Avoid using mineral oil, unless told to do so by a doctor. What are the possible side effects of docusate? Get emergency medical help if you have signs of an allergic reaction: hives; difficult breathing; swelling of your face, lips, tongue, or throat. Stop using docusate and call your doctor at once if you have: ?? rectal bleeding or irritation; or ?? no bowel movement after 72 hours. Less serious side effects may be more likely, and you may have none at all. This is not a complete list of side effects and others may occur. Call your doctor for medical advice about side effects. You may report side effects to FDA at 7-256-PQQ-7679. What other drugs will affect docusate? Other drugs may affect docusate, including prescription and syud-bll-ufcbgld medicines, vitamins, and herbal products. Tell your doctor about all your current medicines and any medicine you start or stop using. Where can I get more information? Your pharmacist can provide more information about docusate. Remember, keep this and all other medicines out of the reach of children, never share your medicines with others, and use this medication only for the indication prescribed. Every effort has been made to ensure that the information provided by [employer]') is accurate, up-to-date, and complete, but no guarantee is made to that effect. Drug information contained herein may be time sensitive. [employer] information has been compiled for use by healthcare practitioners and consumers in the [place] and therefore [employer] does not warrant that uses outside of the [place] are appropriate, unless specifically indicated otherwise. [employer]'s drug information does not endorse drugs, diagnose patients or recommend therapy. Back[employer] I/Os drug information is an informational resource designed to assist licensed healthcare practitioners in caring for their patients and/or to serve consumers viewing this service as a supplement to, and not a substitute for, the expertise, skill, knowledge and judgment of healthcare practitioners. The absence of a warning for a given drug or drug combination in no way should be construed to indicate that the drug or drug combination is safe, effective or appropriate for any given patient. [employer] does not assume any responsibility for any aspect of healthcare administered with the aid of information [employer] provides. The information contained herein is not intended to cover all possible uses, directions, precautions, warnings, drug interactions, allergic reactions, or adverse effects. If you have questions about the drugs you are taking, check with your doctor, nurse or pharmacist. Copyright 2798-1127 [employer]. Version: 4.01. Revision Date: 02/07/2019. acetaminophen and oxycodone (a SEET a MIN oh fen and OX i KOE done) Endocet 10/325, Endocet 2.5/325, Endocet 5/325, Endocet 7.5/325, Nalocet, Percocet 10/325, Percocet 2.5/325, Percocet 5/325, Percocet 7.5/325, Primalev, Primlev, Roxicet, Xartemis XR What is the most important information I should know about acetaminophen and oxycodone? MISUSE OF OPIOID MEDICINE CAN CAUSE ADDICTION, OVERDOSE, OR . Keep the medication in a place where others cannot get to it. An overdose of acetaminophen can damage your liver or cause . Call your doctor at once if you have pain in your upper stomach, loss of appetite, dark urine, or jaundice (yellowing of your skin or eyes). Taking opioid medicine during may cause life-threatening withdrawal symptoms in the . Fatal side effects can occur if you use opioid medicine with alcohol, or with other drugs that cause drowsiness or slow your breathing. Stop taking this medicine and call your doctor right away if you have skin redness or a rash that spreads and causes blistering and peeling. What is acetaminophen and oxycodone? Oxycodone is an opioid pain medication, sometimes called a narcotic. Acetaminophen is a less potent pain reliever that increases the effects of oxycodone. Acetaminophen and oxycodone is a combination medicine used to relieve moderate to severe pain. Acetaminophen and oxycodone may also be used for purposes not listed in this medication guide. What should I discuss with my healthcare provider before taking acetaminophen and oxycodone? You should not use this medicine if you are allergic to acetaminophen or oxycodone, or if you have: ?? severe asthma or breathing problems; or ?? a blockage in your stomach or intestines. Tell your doctor if you have ever had: ?? liver disease; ?? a drug or alcohol addiction; ?? kidney disease; ?? a head injury or seizures; ?? urination problems; or ?? problems with your thyroid, pancreas, or gallbladder. If you use opioid medicine while you are , your baby could become dependent on the drug. This can cause life-threatening withdrawal symptoms in the baby after it is born. Babies born dependent on opioids may need medical treatment for several weeks. Do not breast-feed. This medicine can pass into breast milk and cause drowsiness, breathing problems, or in a nursing baby. How should I take acetaminophen and oxycodone? Follow all directions on your prescription label. Never take this medicine in larger amounts, or for longer than prescribed. An overdose can damage your liver or cause . Tell your doctor if the medicine seems to stop working as well in relieving your pain. Never share this medicine with another person, especially someone with a history of drug abuse or addiction. MISUSE CAN CAUSE ADDICTION, OVERDOSE, OR . Keep the medicine in a place where others cannot get to it. Selling or giving away acetaminophen and oxycodone is against the law. Measure liquid medicine carefully. Use the dosing syringe provided, or use a medicine dose-measuring device (not a kitchen spoon). If you need surgery or medical tests, tell the doctor ahead of time that you are using this medicine. You should not stop using this medicine suddenly. Follow your doctor's instructions about tapering your dose. Store at room temperature away from moisture and heat. Keep track of your medicine. You should be aware if anyone is using it improperly or without a prescription. Do not keep leftover opioid medication. Just one dose can cause in someone using this medicine accidentally or improperly. Ask your pharmacist where to locate a drug take-back disposal program. If there is no take-back program, flush the unused medicine down the toilet. What happens if I miss a dose? Since this medicine is used for pain, you are not likely to miss a dose. Skip any missed dose if it is almost time for your next dose. Do not use two doses at one time. What happens if I overdose? Seek emergency medical attention or call the Poison Help line at . An overdose of acetaminophen and oxycodone can be fatal. The first signs of an acetaminophen overdose include loss of appetite, nausea, vomiting, stomach pain, sweating, and confusion or weakness. Later symptoms may include pain in your upper stomach, dark urine, and yellowing of your skin or the whites of your eyes. Overdose can also cause severe muscle weakness, pinpoint pupils, very slow breathing, extreme drowsiness, or coma. What should I avoid while taking acetaminophen and oxycodone? Avoid driving or operating machinery until you know how this medicine will affect you. Dizziness or drowsiness can cause falls, accidents, or severe injuries. Do not drink alcohol. Dangerous side effects or could occur. Ask a doctor or pharmacist before using any other medicine that may contain acetaminophen (sometimes abbreviated as APAP). Taking certain medications together can lead to a fatal overdose. What are the possible side effects of acetaminophen and oxycodone? Get emergency medical help if you have signs of an allergic reaction: hives; difficulty breathing; swelling of your face, lips, tongue, or throat. Opioid medicine can slow or stop your breathing, and may occur. A person caring for you should seek emergency medical attention if you have slow breathing with long pauses, blue colored lips, or if you are hard to wake up. In rare cases, acetaminophen may cause a severe skin reaction that can be fatal. This could occur even if you have taken acetaminophen in the past and had no reaction. Stop taking this medicine and call your doctor right away if you have skin redness or a rash that spreads and causes blistering and peeling. Call your doctor at once if you have: ?? noisy breathing, sighing, shallow breathing; ?? a light-headed feeling, like you might pass out; ?? weakness, tiredness, fever, unusual bruising or bleeding; ?? confusion, unusual thoughts or behavior; ?? problems with urination; ?? liver problems--nausea, upper stomach pain, tiredness, loss of appetite, dark urine, zulma-colored stools, jaundice (yellowing of the skin or eyes); or ?? low cortisol levels-- nausea, vomiting, loss of appetite, dizziness, worsening tiredness or weakness. Seek medical attention right away if you have symptoms of serotonin syndrome, such as: agitation, hallucinations, fever, sweating, shivering, fast heart rate, muscle stiffness, twitching, loss of coordination, nausea, vomiting, or diarrhea. Serious side effects may be more likely in older adults and those who are overweight, malnourished, or debilitated. Long-term use of opioid medication may affect fertility (ability to have children) in men or women. It is not known whether opioid effects on fertility are permanent. Common side effects include: ?? dizziness, drowsiness, feeling tired; ?? feelings of extreme happiness or sadness; ?? nausea, vomiting, stomach pain; ?? constipation; or ?? headache. This is not a complete list of side effects and others may occur. Call your doctor for medical advice about side effects. You may report side effects to FDA at 9-628-WPV-7888. What other drugs will affect acetaminophen and oxycodone? You may have breathing problems or withdrawal symptoms if you start or stop taking certain other medicines. Tell your doctor if you also use an antibiotic, antifungal medication, heart or blood pressure medication, seizure medication, or medicine to treat HIV or hepatitis C. Opioid medication can interact with many other drugs and cause dangerous side effects or . Be sure your doctor knows if you also use: ?? cold or allergy medicines, bronchodilator asthma/COPD medication, or a diuretic ('water pill'); ?? medicines for motion sickness, irritable bowel syndrome, or overactive bladder; ?? other narcotic medications--opioid pain medicine or prescription cough medicine; ?? a sedative like Valium--diazepam, alprazolam, lorazepam, Xanax, Klonopin, Versed, and others; ?? drugs that make you sleepy or slow your breathing--a sleeping pill, muscle relaxer, medicine to treat mood disorders or mental illness; ?? drugs that affect serotonin levels in your body--a stimulant, or medicine for depression, Parkinson's disease, migraine headaches, serious infections, or nausea and vomiting. This list is not complete. Other drugs may affect acetaminophen and oxycodone, including prescription and evxi-rkn-gnzgcks medicines, vitamins, and herbal products. Not all possible interactions are listed here. Where can I get more information? Your doctor or pharmacist can provide more information about acetaminophen and oxycodone. Remember, keep this and all other medicines out of the reach of children, never share your medicines with others, and use this medication only for the indication prescribed. Every effort has been made to ensure that the information provided by [employer]') is accurate, up-to-date, and complete, but no guarantee is made to that effect. Drug information contained herein may be time sensitive. [facility] information has been compiled for use by healthcare practitioners and consumers in the [place] and therefore [employer] does not warrant that uses outside of the [place] are appropriate, unless specifically indicated otherwise. [employer]'s drug information does not endorse drugs, diagnose patients or recommend therapy. Backtrace I/Os drug information is an informational resource designed to assist licensed healthcare practitioners in caring for their patients and/or to serve consumers viewing this service as a supplement to, and not a substitute for, the expertise, skill, knowledge and judgment of healthcare practitioners. The absence of a warning for a given drug or drug combination in no way should be construed to indicate that the drug or drug combination is safe, effective or appropriate for any given patient. [employer] does not assume any responsibility for any aspect of healthcare administered with the aid of information [employer] provides. The information contained herein is not intended to cover all possible uses, directions, precautions, warnings, drug interactions, allergic reactions, or adverse effects. If you have questions about the drugs you are taking, check with your doctor, nurse or pharmacist. Copyright 5577-3431 [employer]. Version: 18.02. Revision Date: 06/30/2018. ferrous sulfate (FARE us SUL fate) Feosol, Maksim-Gen-Kaylee, Maksim-In-Kaylee, Maksim-Iron, FeroSul, Roxanne Johnson Caps, Francisco-Mele, LudinalEmilie MyKidz Iron 10, Slow Fe, Slow Release Iron What is the most important information I should know about ferrous sulfate? Ask a doctor or pharmacist if it is safe for you to take this medication if you have iron overload syndrome, hemolytic anemia (a lack of red blood cells), porphyria (a genetic enzyme disorder that causes symptoms affecting the skin or nervous system), thalassemia (a genetic disorder of red blood cells), if you are an alcoholic, or if you receive regular blood transfusions. Avoid taking any other multivitamin or mineral product within 2 hours before or after you take ferrous sulfate. Taking similar mineral products together at the same time can result in a mineral overdose or serious side effects. Seek emergency medical attention if you think you have used too much of this medicine, or if anyone has accidentally swallowed it. An overdose of iron can be fatal, especially in a young child. Overdose symptoms may include nausea, severe stomach pain, bloody diarrhea, coughing up blood or vomit that looks like coffee grounds, shallow breathing, weak and rapid pulse, pale skin, blue lips, and seizure (convulsions). Take ferrous sulfate on an empty stomach, at least 1 hour before or 2 hours after a meal. Avoid taking antacids or antibiotics within 2 hours before or after taking ferrous sulfate. Ferrous sulfate is only part of a complete program of treatment that may also include a special diet. It is very important to follow the diet plan created for you by your doctor or nutrition counselor. You should become very familiar with the list of foods you should eat to make sure you get enough iron from both your diet and your medication. What is ferrous sulfate? Ferrous sulfate is a type of iron. You normally get iron from the foods you eat. In your body, iron becomes a part of your hemoglobin (HEEM o cecilia bin) and myoglobin (MY o cecilia bin). Hemoglobin carries oxygen through your blood to tissues and organs. Myoglobin helps your muscle cells store oxygen. Ferrous sulfate is used to treat iron deficiency anemia (a lack of red blood cells caused by having too little iron in the body). Ferrous sulfate may also be used for purposes not listed in this medication guide. What should I discuss before taking ferrous sulfate? Ask a doctor or pharmacist if it is safe for you to take this medication if you have: ?? iron overload syndrome; ?? hemolytic anemia (a lack of red blood cells); ?? porphyria (a genetic enzyme disorder that causes symptoms affecting the skin or nervous system); ?? thalassemia (a genetic disorder of red blood cells); ?? if you are an alcoholic; or ?? if you receive regular blood transfusions. It is not known whether this medication could be harmful to an unborn baby. Tell your doctor if you become during treatment. It is not known whether ferrous sulfate passes into breast milk or if it could harm a nursing baby. Do not use this medication without telling your doctor if you are breast-feeding a baby. Do not give ferrous sulfate to a child without the advice of a doctor. How should I take ferrous sulfate? Use exactly as directed on the label, or as prescribed by your doctor. Do not use in larger or smaller amounts or for longer than recommended. Take ferrous sulfate on an empty stomach, at least 1 hour before or 2 hours after a meal. Avoid taking antacids or antibiotics within 2 hours before or after taking ferrous sulfate . Take this medication with a full glass of water. Do not crush, chew, break, or open an extended-release tablet or capsule. Swallow the pill whole. Breaking or opening the pill may cause too much of the drug to be released at one time. Shake the oral suspension (liquid) well just before you measure a dose. Measure the liquid with a special dose-measuring spoon or medicine cup, not with a regular table spoon. If you do not have a dose-measuring device, ask your pharmacist for one. Ferrous sulfate can stain your teeth, but this effect is temporary. To prevent tooth staining, mix the liquid form of ferrous sulfate with water or fruit juice (not with milk) and drink the mixture through a straw. You may also clean your teeth with baking soda once per week to treat any tooth staining. Ferrous sulfate is only part of a complete program of treatment that may also include a special diet. It is very important to follow the diet plan created for you by your doctor or nutrition counselor. You should become very familiar with the list of foods you should eat to make sure you get enough iron from both your diet and your medication. Store at room temperature, away from moisture and heat. What happens if I miss a dose? Take the missed dose as soon as you remember. Skip the missed dose if it is almost time for your next scheduled dose. Do not take extra medicine to make up the missed dose. What happens if I overdose? Seek emergency medical attention or call the Poison Help line at , especially if a child has accidentally swallowed it. An overdose of ferrous sulfate can be fatal to a child. Overdose symptoms may include nausea, severe stomach pain, bloody diarrhea, coughing up blood or vomit that looks like coffee grounds, shallow breathing, weak and rapid pulse, pale skin, blue lips, and seizure (convulsions). What should I avoid while taking ferrous sulfate? Avoid taking any other multivitamin or mineral product within 2 hours before or after you take ferrous sulfate. Taking similar mineral products together at the same time can result in a mineral overdose or serious side effects. Avoid taking an antibiotic medicine within 2 hours before or after you take ferrous sulfate. This is especially important if you are taking an antibiotic such as ciprofloxacin (Cipro), demeclocycline (Declomycin), doxycycline (Adoxa, Doryx, Oracea, Vibramycin), levofloxacin (Levaquin), minocycline (Dynacin, Minocin, Solodyn, Vectrin), norfloxacin (Noroxin), ofloxacin (Floxin), or tetracycline (Brodspec, Panmycin, Sumycin, Tetracap). Certain foods can also make it harder for your body to absorb ferrous sulfate. Avoid taking this medication within 1 hour before or 2 hours after eating fish, meat, liver, and whole grain or 'fortified' breads or cereals. Avoid using antacids without your doctor's advice. Use only the type of antacid your doctor recommends. Some antacids can make it harder for your body to absorb ferrous sulfate. What are the possible side effects of ferrous sulfate? Get emergency medical help if you have any of these signs of an allergic reaction: hives; difficulty breathing; swelling of your face, lips, tongue, or throat. Less serious side effects may include: ?? constipation; ?? upset stomach; ?? black or dark-colored stools; or ?? temporary staining of the teeth. This is not a complete list of side effects and others may occur. Call your doctor for medical advice about side effects. You may report side effects to FDA at 0-668-IWL-3402. What other drugs will affect ferrous sulfate? Tell your doctor about all other medicines you use, especially: ?? acetohydroxamic acid (Lithostat); ?? chloramphenicol; ?? cimetidine (Tagamet); ?? etidronate (Didronel); ?? dimercaprol (an injection used to treat poisoning by arsenic, lead, or mercury); ?? levodopa (Larodopa, Dopar, Sinemet); ?? methyldopa (Aldomet); or ?? penicillamine (Cuprimine). This list is not complete and other drugs may interact with ferrous sulfate. Tell your doctor about all medications you use. This includes prescription, [id number], vitamin, and herbal products. Do not start a new medication without telling your doctor. Where can I get more information? Your pharmacist can provide more information about ferrous sulfate. Remember, keep this and all other medicines out of the reach of children, never share your medicines with others, and use this medication only for the indication prescribed. Every effort has been made to ensure that the information provided by [employer] is accurate, up-to-date, and complete, but no guarantee is made to that effect. Drug information contained herein may be time sensitive. [facility] information has been compiled for use by healthcare practitioners and consumers in the [place] and therefore [employer] does not warrant that uses outside of the [place] are appropriate, unless specifically indicated otherwise. [employer]'s drug information does not endorse drugs, diagnose patients or recommend therapy. Backtrace I/Os drug information is an informational resource designed to assist licensed healthcare practitioners in caring for their patients and/or to serve consumers viewing this service as a supplement to, and not a substitute for, the expertise, skill, knowledge and judgment of healthcare practitioners. The absence of a warning for a given drug or drug combination in no way should be construed to indicate that the drug or drug combination is safe, effective or appropriate for any given patient. [facility] does not assume any responsibility for any aspect of healthcare administered with the aid of information [facility] provides. The information contained herein is not intended to cover all possible uses, directions, precautions, warnings, drug interactions, allergic reactions, or adverse effects. If you have questions about the drugs you are taking, check with your doctor, nurse or pharmacist. Copyright 9380-1890 [employer]. Version: 4.03. Revision Date: 10/31/2011. Emergency Awareness and Preventative Care STROKE is an EMERGENCY Every Minute Counts Act FAST and Check for these signs: FACE Does the face look uneven? ARM Does one arm drift down? SPEECH Does their speech sound strange? TIME Call at any sign of stroke Stroke Risk Factors Atrial Fibrillation (irregular heartbeat) Diabetes Family history of stroke Heart Disease Heavy alcohol use High Blood Pressure High Cholesterol Physical inactivity and obesity Smoking Cigarette Smoking The facts are clear, cigarette smoking will shorten your life. Smoking can cause many illnesses along the way. As a healthcare provider, we recommend that you stop smoking. Assistance with quitting is available by contacting 3-139-[facility]. This is a free resource providing counseling, support, and referral. Or you may contact your personal physician. [employer] Suicide Prevention Lifeline: The National Suicide Prevention Lifeline is a national network of local crisis centers that provides free and confidential emotional support to people in suicidal crisis or emotional distress 24 hours a day, 7 days a week. Don't Wait! Stop a Heart Attack Before it Starts What is a heart attack? A heart attack is damage or to a part of the heart from severely decreased or lack of blood flow to the heart. Over time, arteries can become narrow from the buildup of fat and cholesterol, which is called plaque. The plaque can rupture causing a blood clot to form. When the blood clot forms, the artery can become severely narrowed or completely blocked, causing a heart attack. Heart attack is the leading cause of in the [place]. 85% of muscle damage occurs within the first 2 hours. Delay in the recognition of heart attack symptoms increases the chances of . Know the early symptoms of a heart attack: Nausea Feeling of fullness in chest Jaw Pain Pain that travels down one or both arms Fatigue/being tired Anxiety Back Pain Chest pressure, squeezing, or discomfort Shortness of breath Sweating, or a cold sweat Feeling of impending doom There are unusual signs of a heart attack, too! Women, the elderly, and diabetics may present with atypical symptoms: Fainting/dizziness Weakness Confusion Risk Factors for a Heart Attack Some heart disease risk factors, such as age and family history, cannot be changed. Others, like smoking and lack of exercise, can be changed. Smoking High Cholesterol High Blood Pressure Family History Obesity Age Gender (Males are at higher risk) Lack of Exercise Diabetes Diet Stress Excessive Alcohol Intake If you or someone you know is experiencing the signs and symptoms of a heart attack, DON???T DELAY. Call immediately and seek help. If someone collapses, perform CPR! Do not attempt to drive if you are having symptoms of heart attack. Hands-Only CPR Why Hands-Only CPR? Hands-Only CPR has been shown to be as effective as conventional CPR for cardiac arrests that occur outside of a hospital. Survival depends on immediately receiving CPR from someone nearby. How do you perform Hands-Only CPR? There are two easy steps: Call if you see a teen or adult collapse Push hard and fast in the center of the chest at a beat of 100 beats per minute. Save a life! 4 WAYS TO GET AHEAD OF SEPSIS SEPSIS is a MEDICAL EMERGENCY. Time matters! Infections put you and your family at risk for a life-threatening condition called sepsis. Sepsis is the body's extreme response to an infection. It is life-threatening, and without timely treatment, sepsis can rapidly lead to tissue damage, organ failure, and . Sepsis happens when an infection you already have-in your skin, lungs, urinary tract or somewhere else-triggers a chain reaction throughout your body. 1 PREVENT INFECTIONS Take good care of chronic conditions. Talk to your doctor about getting the recommended vaccines. 2 PRACTICE GOOD HYGIENE Wash your hands frequently. Keep cuts or open sores clean and covered until they are healed. 3 KNOW THE SYMPTOMS Confusion or disorientation Shortness of breath High heart rate Fever, shivering, or feeling very cold Extreme pain or discomfort Clammy or sweaty skin 4 ACT FAST Get medical care IMMEDIATELY if you suspect sepsis or if you have an infection that is not getting better or is getting worse. To learn more about sepsis and how to prevent infections, visit www.cdc.gov/sepsis. Test Results Laboratory or Other Results This Visit (last charted value for your 05/20/2019 visit) Hematology 05/23/2019 3:00 AM WBC: 10.5 K/uL -- Normal range between ( 3.6 and 9.5 ) RBC: 3.85 Million/uL -- Normal range between ( 4.20 and 5.70 ) Hct: 30.9 % -- Normal range between ( 40.1 and 51.0 ) Hgb: 10.3 g/dL -- Normal range between ( 13.5 and 17.3 ) Platelet Count: 515 K/uL -- Normal range between ( 163 and 369 ) MCH: 26.8 pg -- Normal range between ( 25.6 and 32.2 ) MCHC: 33.3 Gram/dL -- Normal range between ( 32.2 and 36.5 ) MCV: 80.3 fL -- Normal range between ( 79.0 and 94.8 ) Slide Review: No Eos %: 0.4 % -- Normal range between ( 0.0 and 7.0 ) Bent #: 0.62 K/uL -- Normal range between ( 0.16 and 1.00 ) Eos #: 0.04 x10(3)/uL -- Normal range between ( 0.00 and 0.80 ) Bent %: 5.9 % -- Normal range between ( 3.0 and 9.0 ) Baso %: 0.1 % -- Normal range between ( 0.0 and 1.5 ) Baso #: 0.01 x10(3)/uL -- Normal range between ( 0.00 and 0.20 ) RDW: 17.7 % -- Normal range between ( 11.7 and 14.9 ) Neut %: 86.7 % -- Normal range between ( 34.0 and 71.0 ) Neut #: 9.08 K/uL -- Normal range between ( 1.56 and 6.13 ) Lymph %: 4.7 % -- Normal range between ( 19.3 and 53.1 ) Lymph #: 0.49 x10(3)/uL -- Normal range between ( 1.00 and 3.90 ) MPV: 8.7 fL -- Normal range between ( 9.4 and 12.4 ) IG#: 0.23 x10(3)/uL -- Normal range between ( 0.00 and 0.05 ) IG%: 2.20 % -- Normal range between ( 0.00 and 0.60 ) 05/21/2019 9:11 AM Sed Rate Auto: 47 mm/Hr -- Normal range between ( 0 and 20 ) Microbiology 05/20/2019 3:06 PM Tissue Culture: See Result 05/20/2019 2:43 PM Wound Culture: See Result 05/18/2019 11:34 AM MRSA Surveillance: See Result Blood Bank 05/22/2019 6:45 PM TRANSFUSED: TRANSFUSED 05/22/2019 12:44 PM RBC Product Ready: Done 05/22/2019 11:51 AM ABO/Rh (ECHO): O POS Antibody Screen: Negative ABSC Crossmatch: Computer XM OK 05/22/2019 11:39 AM # of Units: 2 05/20/2019 10:43 AM ABO/Rh Repeat: O POS General Chemistry 05/23/2019 10:34 AM Glucose POC2: 330 mg/dL -- Normal range between ( 70 and 110 ) Device Comment 1: Device Comment 1 05/23/2019 3:00 AM Creatinine Level: 1.20 mg/dL -- Normal range between ( 0.70 and 1.30 ) Sodium Level: 133 mmol/L -- Normal range between ( 136 and 146 ) Potassium Level: 4.1 mmol/L -- Normal range between ( 3.5 and 5.1 ) Chloride Level: 98 mmol/L -- Normal range between ( 102 and 112 ) Carbon Dioxide Level: 24 mmol/L -- Normal range between ( 21 and 32 ) Anion Gap: 15 -- Normal range between ( 9 and 20 ) Bilirubin Total: 0.5 mg/dL -- Normal range between ( 0.2 and 1.2 ) A/G Ratio: 0.5 -- Normal range between ( 1.1 and 2.5 ) ALT: 15 Units/Liter -- Normal range between ( 16 and 61 ) AST: 8 Units/Liter -- Normal range between ( 5 and 37 ) Globulin: 4.2 Gram/dL -- Normal range between ( 1.5 and 4.5 ) Alk Phos: 81 Units/Liter -- Normal range between ( 27 and 136 ) Bun/Creatinine: 19.2 -- Normal range between ( 8.0 and 20.0 ) Calcium Level: 9.7 mg/dL -- Normal range between ( 8.4 and 10.1 ) eGFR : >60 mL/min/1.73m2 eGFR NonAfrican: 58 mL/min/1.73m2 Glucose Level: 350 mg/dL -- Normal range between ( 74 and 106 ) Blood Urea Nitrogen: 23 mg/dL -- Normal range between ( 7 and 22 ) Protein Total: 6.4 Gram/dL -- Normal range between ( 6.4 and 8.2 ) Albumin Level: 2.2 Gram/dL -- Normal range between ( 3.4 and 5.0 ) 05/21/2019 9:11 AM CRP: 14.2 mg/dL -- Normal range between ( 0.0 and 0.9 ) 05/18/2019 11:34 AM Hgb A1C: 10.7 % eAVG Glucose: 260 mg/dL Cardiac Specific Markers 05/21/2019 9:11 AM CK: 43 Units/Liter -- Normal range between ( 39 and 308 ) Coagulation 05/18/2019 11:34 AM INR: 1.0 -- Normal range between ( 0.9 and 1.1 ) PTT: 28.6 Second(s) -- Normal range between ( 22.0 and 32.0 ) PT: 10.4 Second(s) -- Normal range between ( 9.6 and 12.0 ) Diagnostic Radiology 05/20/2019 5:10 PM CR Knee 1 or 2 Vws LT: CR Knee 1 or 2 Vws LT Patient Name:LORA JAIN JR I have received and understand this information and was given the opportunity to ask questions. Patient/Life Enrichment Specialist Name: Patient/Life Enrichment Specialist Signature: Relationship to Patient: Clinician/Hospital Life Enrichment Specialist Signature: Date: Electronically signed by Wellington, Edward Conversion [employer] Internship Cerner at 11/18/2022 9:30 AM CDT documented in this encounter Plan of Treatment Not on file documented as of this encounter Visit Diagnoses Not on filedocumented in this encounter Care Teams Fur Glazer Relationship Specialty Start Date End Date Alfredo Lackey MD [address] [place] [address] PCP - General Adolescent Medicine 10/16/22 10/19/22 Alfredo Lackey MD [address] [place] [address] PCP - General Adolescent Medicine 10/20/22 documented as of this encounter
--- OUTSIDE RECORDS SUMMARY | 2025-01-23 15:56 | XMS_ITS | Encounter Summary ---
Author Organization [employer] Address [address] [facility] [place] [address] Care Team Providers Care Licensing Services Clerk Name Role Phone Alfredo Aguiar MD Primary Care Provider + [phone] Alfredo Aguiar MD Primary Care Provider + [phone] Encounter Details Date Type Department Care Team (Late st Contact Info) Description 08/19/2019 Transcribed Document [address] [id number] Massimo Butterfield MD [address] [place], [place] [id number] Social History Tobacco Use Types Packs/Day Years Used Date Smoking Tobacco: Never Assessed Sex and Gender Information Value Date Recorded Sex Assigned at Not on file Legal Sex Male 5:45 PM CDT Gender Identity Not on file Sexual Orientation Not on file documented as of this encounter Miscellaneous Notes * Cerner Conversion Note - Massimo Butterfield MD - 08/19/2019 10:55 AM EST Patient: LORA JAIN JR Age: 78 years Sex: Male : 1940 Associated Diagnoses: None Author: JOS CLARK APRN-NATHANIEL 08/17/2019 cc: medical management s/p left total knee revision arthroplasty per Dr. Allison S: Patient found sitting up in bed. A/O. Daughter at bedside. Patient reports he rested well last night. Nerve block has worn off so patient is now experiencing pain but this is adequately controlled with oral pain meds. Block did not wear off until 6am this morning so patient has not yet been out of bed with therapy. He has a bed available at [facility] in [place] and will discharge tomorrow for rehab. No cough, dyspnea, fever/chills, n/v or dysuria. Bowels have not yet moved but patient is passing gas and tolerating a PO diet. Daughter request probiotic while patient remains on antibiotics. HPI: Patient is an 78 yo male admitted to [facility] per Dr. 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 - 03/24/2018 13:52 - HERMAN LARSEN, [...] Genitourinary: [No hematuria, dysuria Musculoskeletal: left knee pain with decreased ROM Integumentary: [No rash, pruritus- drain will be removed today Neurologic: [No weakness, numbness Psychiatric: [No anxiety, depression Exam: Vitals Signs (last 24 hrs) Last Charted Minimum Maximum Temp 97.5 (AUG 19 05:46) 97.5 (AUG 19 05:46) 99.2 (AUG 18 22:40) Mon HR 84 (AUG 19 05:46) 71 (AUG 18 14:13) 84 (AUG 19 05:46) Resp Rate 16 (AUG 19 05:46) 16 (AUG 18 11:09) 16 (AUG 18 11:09) SBP H 143 (AUG 19 05:46) 104 (AUG 18 11:09) H 143 (AUG 19 05:46) DBP 64 (AUG 19 05:46) 61 (AUG 18 11:09) 72 (AUG 18 14:13) MAP 82 (AUG 19 05:46) 74 (AUG 18 11:09) 89 (AUG 18 14:13) SpO2 94 (AUG 19 05:46) L 93 (AUG 18 22:40) 100 (AUG 18 11:09) General: [Alert and oriented, no acute distress]. [...] Data: Labs (Last four charted values) WBC 7.9 (AUG 19) 7.8 (AUG 18) 6.4 (AUG 04) HB L 11.0 (AUG 19) L 11.6 (AUG 18) L 11.9 (AUG 17) L 13.4 (AUG 04) HCT L 33.0 (AUG 19) L 35.9 (AUG 18) 41.4 (AUG 04) Plt 238 (AUG 19) 294 (AUG 18) 309 (AUG 04) Na L 134 (AUG 19) 136 (AUG 18) 138 (AUG 04) K 4.6 (AUG 19) 4.4 (AUG 18) 5.0 (AUG 04) Cl L 101 (AUG 19) 102 (AUG 18) 103 (AUG 04) CO2 29 (AUG 19) 32 (AUG 18) 28 (AUG 04) BUN H 23 (AUG 19) H 24 (AUG 18) H 35 (AUG 04) Cr 1.30 (AUG 19) H 1.40 (AUG 18) H 1.70 (AUG 04) Glu R H 302 (AUG 19) H 237 (AUG 18) H 126 (AUG 04) Ca 8.9 (AUG 19) 8.6 (AUG 18) 9.7 (AUG 04) PT 10.2 (AUG 04) INR 1.0 (AUG 04) PTT 25.7 (AUG 04) Impression: left knee septic arthritis s/p protracted IV abx course for infection and placement of abx spacer with prosthesis removal -s/p left total knee revision arthroplasty per Dr. Allison HTN GERD DM Plan: Patient plans to discharge to [facility] tomorrow ID following for antibiotic management- cultures pending [...] on filedocumented in this encounter Care Teams Licensing Services Clerk Relationship Specialty Start Date End Date Alfredo Aguiar MD [address] [place] [address] PCP - General Adolescent Medicine 10/16/22 10/19/22 Alfredo Aguiar MD [address] [place] [address] PCP - General Adolescent Medicine 10/20/22 documented as of this encounter
--- OUTSIDE RECORDS SUMMARY | 2025-01-23 15:56 | XMS_ITS | Encounter Summary ---
Author Organization [employer] Address [address] [place] [address] Care Team Providers Care Custom Tailor Name Role Phone Alfredo Aguiar MD Primary Care Provider + [phone] Alfredo Aguiar MD Primary Care Provider + [phone] Encounter Details Date Type Department Care Team (Late st Contact Info) Description 08/19/2019 Transcribed Document [facility] Family Medicine [facility] [place] [address] ProviderEryn MD [address] [place] [id number] Social History Tobacco Use Types Packs/Day Years Used Date Smoking Tobacco: Never Assessed Sex and Gender Information Value Date Recorded Sex Assigned at Not on file Legal Sex Male 5:45 PM CDT Gender Identity Not on file Sexual Orientation Not on file documented as of this encounter Miscellaneous Notes * Cerner Conversion Note - Eryn ProviderMD - 08/19/2019 12:00 PM FILLING STATION EQUIPMENT MECHANIC Pain Assessment Entered On: 08/19/2019 19:59 EST Performed On: 08/19/2019 13:10 EST by Gabrielle Persaud RN Intervention Information: acetaminophen Performed by Gabrielle Persaud RN on 08/19/2019 12:10:00 EST acetaminophen,1000mg Oral Pain Assessment Pain Assessment [...] on filedocumented in this encounter Care Teams Custom Tailor Relationship Specialty Start Date End Date Alfredo Aguiar MD [address] [place] [address] PCP - General Adolescent Medicine 10/16/22 10/19/22 Alfredo Aguiar MD [address] [place] [address] PCP - General Adolescent Medicine 10/20/22 documented as of this encounter
--- OUTSIDE RECORDS SUMMARY | 2025-01-23 15:56 | XMS_ITS | Encounter Summary ---
Author Organization [employer] Address [address] [place] [address] Care Team Providers Care Remote Broadcast Technician Name Role Phone Alfredo Aguiar MD Primary Care Provider + [phone] Alfredo Aguiar MD Primary Care Provider + [phone] Encounter Details Date Type Department Care Team (Late st Contact Info) Description 08/19/2019 Transcribed Document [facility] Family Medicine [facility] [place] [address] ProviderEryn MD [address] [place] [phone] Social History Tobacco Use Types Packs/Day Years Used Date Smoking Tobacco: Never Assessed Sex and Gender Information Value Date Recorded Sex Assigned at Not on file Legal Sex Male 5:45 PM CDT Gender Identity Not on file Sexual Orientation Not on file documented as of this encounter Miscellaneous Notes * Cerner Conversion Note - Eryn ProviderMD - 08/19/2019 2:00 AM WEB APPLICATION TESTER Director Patient Details Entered On: 08/19/2019 5:50 EST Performed On: 08/19/2019 2:00 EST by Jess Reno Order Details Transport Mode Order Detail : Wheelchair Isolation Precautions Order Detail : Standard Precautions Order Detail : N/A IV Order Detail : 1 Nurse Collect Order Detail : 0 Lift/Transfer : Moderate assist Central Line Order Detail : No Room Service : Needs Assistance Arterial Line : No Jess Reno - 08/19/2019 5:50 EST documented in this encounter Plan of Treatment Not on file documented as of this encounter Visit Diagnoses Not on filedocumented in this encounter Care Teams Remote Broadcast Technician Relationship Specialty Start Date End Date Alfredo Aguiar MD [address] [place] [address] PCP - General Adolescent Medicine 10/16/22 10/19/22 Alfredo Aguiar MD [address] [place] [address] PCP - General Adolescent Medicine 10/20/22 documented as of this encounter
--- OUTSIDE RECORDS SUMMARY | 2025-01-23 15:56 | XMS_ITS | Encounter Summary ---
Author Organization [employer] Address [address] [place] [address] Care Team Providers Care Payroll Lead Name Role Phone Alfredo Aguiar MD Primary Care Provider + [phone] Alfredo Aguiar MD Primary Care Provider + [phone] Encounter Details Date Type Department Care Team (Late st Contact Info) Description 05/23/2019 Transcribed Document [facility] Family [place] [facility] [place] [place] [address] ProviderEryn MD [address] [place] [phone] Social History Tobacco Use Types Packs/Day Years Used Date Smoking Tobacco: Never Assessed Sex and Gender Information Value Date Recorded Sex Assigned at Not on file Legal Sex Male 5:45 PM CDT Gender Identity Not on file Sexual Orientation Not on file documented as of this encounter Miscellaneous Notes * Cerner Conversion Note - Eryn ProviderMD - 05/23/2019 2:00 AM CDT Diesel Power Shovel Operator Details Entered On: 05/23/2019 5:19 EDT Performed On: 05/23/2019 2:00 EDT by Eric Guerrero RN-Resource Order Details Transport Mode Order Detail : Bed (including specialty) Isolation Precautions Order Detail : Standard Precautions Order Detail : N/A IV Order Detail : 1 Oxygen Order Detail : 0 Nurse Collect Order Detail : 0 Lift/Transfer : Moderate assist Central Line Order Detail : No Room Service : Appropriate Arterial Line : No Eric Guerrero RN-Resource - 05/23/2019 5:19 EDT documented in this encounter Plan of Treatment Not on file documented as of this encounter Visit Diagnoses Not on filedocumented in this encounter Care Teams Payroll Lead Relationship Specialty Start Date End Date Alfredo Aguiar MD [address] [place] [address] PCP - General Adolescent Medicine 10/16/22 10/19/22 Alfredo Aguiar MD [address] [place] [address] PCP - General Adolescent Medicine 10/20/22 documented as of this encounter
--- OUTSIDE RECORDS SUMMARY | 2025-01-23 15:56 | XMS_ITS | Encounter Summary ---
Author Organization [employer] Address [address] [place] [address] Care Team Providers Care Field Hand Name Role Phone Alfredo Aguiar MD Primary Care Provider + [phone] Alfredo Aguiar MD Primary Care Provider + [phone] Encounter Details Date Type Department Care Team (Late st Contact Info) Description 08/20/2019 Transcribed Document [facility] [place] Family Medicine [place] [address] ProviderEryn MD [address] [place] [phone] Social History Tobacco Use Types Packs/Day Years Used Date Smoking Tobacco: Never Assessed Sex and Gender Information Value Date Recorded Sex Assigned at Not on file Legal Sex Male 5:45 PM CDT Gender Identity Not on file Sexual Orientation Not on file documented as of this encounter Miscellaneous Notes * Cerner Conversion Note - Historical ProviderMD - 08/20/2019 1:55 PM ALTO SINGER Discharge Summary, PT Entered On: 08/20/2019 13:56 EST Performed On: 08/20/2019 13:55 EST by SHARON WALTON PTA Discharge Summary Discharge Summary Provider Notified : Physical Therapy Reason for Discharge : Discharged from hospital Discharged to, Therapy : Unit, usp SHARON WALTON PTA - 08/20/2019 13:55 EST Discharge Summary Comment, PT : Patient was min assist for all transfers ambulates 56ft with RWx min assist and chair follow Patient has not met 3 LTGs and would benefit from continued PT. PT agrees with written D/MARLENE Guidry, PT - 08/20/2019 15:03 EST Pouncer Machine Goals Mobility/Bed Mobility LTG PT Grid Goal #1 Activity : Sit to stand Assist : Supervision or set-up Equipment : Walker, front wheel Date to Meet : 09/01/2019 EST Goal Status : Not met SHARON WALTON PTA - 08/20/2019 13:55 EST Transfer LTG Grid Goal #1 Destination : Chair, with arms Type : Stand Pivot Sit Assist : Supervision or set-up Equipment : Walker, front wheel Date to Meet : 09/01/2019 EST Goal Status : Not met SHARON WALTON PTA - 08/20/2019 13:55 EST Ambulation LTG Grid Goal #1 Device : Walker, front wheel Distance : 75ft Assist : Supervision or set-up Date to Meet : 09/01/2019 EST Goal Status : Not met SHARON WALTON PTA - 08/20/2019 13:55 EST Electronically signed by [facility] Conversion Payment Poster Cerner at 11/18/2022 9:20 AM CDT documented in this encounter Plan of Treatment Not on file documented as of this encounter Visit Diagnoses Not on filedocumented in this encounter Care Teams Field Hand Relationship Specialty Start Date End Date Alfredo Aguiar MD [address] [place] [address] PCP - General Adolescent Medicine 10/16/22 10/19/22 Alfredo Aguiar MD [address] [place] [address] PCP - General Adolescent Medicine 10/20/22 documented as of this encounter
--- OUTSIDE RECORDS SUMMARY | 2025-01-23 15:56 | XMS_ITS | Encounter Summary ---
Author Organization [employer] Address [address] [facility] [place] [address] Care Team Providers Care Setter Cold Rolling Machine Name Role Phone Alfredo Aguiar MD Primary Care Provider + [phone] Alfredo Aguiar MD Primary Care Provider + [phone] Encounter Details Date Type Department Care Team (Late st Contact Info) Description 05/22/2019 Transcribed Document [facility] [place] [facility] [place] [address] ProviderEryn MD [address] [place] [id number] Social History Tobacco Use Types Packs/Day Years Used Date Smoking Tobacco: Never Assessed Sex and Gender Information Value Date Recorded Sex Assigned at Not on file Legal Sex Male 5:45 PM CDT Gender Identity Not on file Sexual Orientation Not on file documented as of this encounter Miscellaneous Notes * Cerner Conversion Note - Eryn Arcos MD - 05/22/2019 10:06 AM CDT Patient: LORA JAIN JR Age: [...] pain currently. Denies f/c, sob, n/v/d, rashes. OBJECTIVE: Vitals Signs (last 24 hrs) Last Charted Minimum Maximum Temp 98 (MAY 22 06:58) 97.8 (MAY 21:20) 98 (MAY 22 06:58) Mon HR 104 [...] (MAY 22 08:24) 100 (MAY 21 10:08) Exam: Constitutional: NAD, alert, WD/WN, appears stated [...] Labs (Last four charted values) WBC H 11.5 (MAY 22) 9.5 (MAY 21) 7.2 (MAY 18) HB L 7.9 (MAY 22) L 8.0 (MAY 21) L 8.0 (MAY 20) L 11.2 (MAY 18) HCT L 24.4 (MAY 22) L 25.5 (MAY 21) L 35.3 (MAY 18) Plt H 462 (MAY 22) H 454 (MAY 21) H 581 (MAY 18) Na L 131 (MAY 22) L 134 (MAY 21) L 134 (MAY 18) K 4.5 (MAY 22) 4.3 (MAY 21) 4.2 (MAY 18) Cl L 96 (MAY 22) L 98 (MAY 21) L 97 (MAY 18) CO2 L 19 (MAY 22) 27 (MAY 21) 29 (MAY 18) BUN H 24 (MAY 22) 21 (MAY 21) 20 (MAY 18) Cr H 1.50 (MAY 22) 1.30 (MAY 21) 1.20 (MAY 18) Glu R H 415 (MAY 22) H 305 (MAY 21) H 261 (MAY 18) Ca 9.3 (MAY 22) 8.5 (MAY 21) 9.4 (MAY 18) PT 10.4 (MAY 18) INR 1.0 (MAY 18) PTT 28.6 (MAY 18) Creatinine Clearance (Current Encounter/Past 24 Hours) Creatinine Level 1.50 mg/dL HI 05/22/2019 07:33 Bun/Creatinine 16.0 05/22/2019 03:57 Estimated Creatinine Clearance 43.11 mL/Min 05/22/2019 03:57 Micro: 05/20/19: Surgical cultures pending. Rad: Radiology Results (Last 48 hours) [id number] -- 05/20/2019 06:54 CR Knee 1 or 2 Vws LT (05/20/2019 17:10) Result: CR Knee 1 or 2 Vws LTHISTORY: Joint pain. Recent surgery .FINDINGS: A two view exam demonstrates surgical changes of left kneearthroplasty. The hardware has a normal appearance. No fracture isidentified. A surgical drain is noted . IMPRESSION: Surgical changes of arthroplasty without hardwarecomplication.Images reviewed, interpreted, and dictated by Dr. Mark Laureano.Transcribed by Maximiliano Hi PA-C.I have personally viewed, interpreted and dictated the examination. Ihave read and agree with the above final transcribed report. IMPRESSION: 1. Streptococcus mutans left TKA infection- [...] cancer/prostatectomy 6. LUZ ELENA/CPAP 7. HTN RECOMMENDATIONS/PLANS: 1. Monitor surgical cultures 2. Continue Rocephin 2 g IV daily 3. Continue wound care 4. PICC line placement 5. Discharge to rehabilitation Wendie Peng MD saw and examined patient, verified findings, reviewed labs and radiographic data, formulated diagnosis, plan for treatment, and all medical decision making. Bowen Saldana for Dr. Wendie Peng. Electronically signed by Wellington [facility] Conversion Ad Writer Cerner at 11/18/2022 9:36 AM CDT documented in this encounter Plan of Treatment Not on file documented as of this encounter Visit Diagnoses Not on filedocumented in this encounter Care Teams Setter Cold Rolling Machine Relationship Specialty Start Date End Date Alfredo Aguiar MD [address] [place] [address] PCP - General Adolescent Medicine 10/16/22 10/19/22 Alfredo Aguiar MD [address] [place] [address] PCP - General Adolescent Medicine 10/20/22 documented as of this encounter
--- OUTSIDE RECORDS SUMMARY | 2025-01-23 15:56 | XMS_ITS | Encounter Summary ---
Author Organization [employer] Address [address] [place] [address] Care Team Providers Care Discovery Manager Name Role Phone Alfredo Aguiar MD Primary Care Provider + [phone] Alfredo Aguiar MD Primary Care Provider + [phone] Encounter Details Date Type Department Care Team (Late st Contact Info) Description 05/22/2019 Transcribed Document [facility] Family Medicine [facility] [place] [address] ProviderEryn MD [address] [place] [id number] Social History Tobacco Use Types Packs/Day Years Used Date Smoking Tobacco: Never Assessed Sex and Gender Information Value Date Recorded Sex Assigned at Not on file Legal Sex Male 5:45 PM CDT Gender Identity Not on file Sexual Orientation Not on file documented as of this encounter Miscellaneous Notes * Cerner Conversion Note - Eryn ProviderMD - 05/22/2019 2:00 AM CDT Services Mgr Details Entered On: 05/22/2019 4:49 EDT Performed On: 05/22/2019 2:00 EDT by Maegan Tracey RN-Resource Order Details Transport Mode Order Detail : Bed (including specialty) Isolation Precautions Order Detail : Standard Precautions Order Detail : N/A IV Order Detail : 1 Oxygen Order Detail : 0 Nurse Collect Order Detail : 0 Lift/Transfer : Moderate assist Central Line Order Detail : No Room Service : Appropriate Arterial Line : No Maegan Tracey RN-Resource - 05/22/2019 4:48 EDT documented in this encounter Plan of Treatment Not on file documented as of this encounter Visit Diagnoses Not on filedocumented in this encounter Care Teams Discovery Manager Relationship Specialty Start Date End Date Alfredo Aguiar MD [address] [place] [address] PCP - General Adolescent Medicine 10/16/22 10/19/22 Alfredo Aguiar MD [address] [place] [address] PCP - General Adolescent Medicine 10/20/22 documented as of this encounter
--- OUTSIDE RECORDS SUMMARY | 2025-01-23 15:56 | XMS_ITS | Encounter Summary ---
Author Organization [employer] Address [address] [place] [address] Care Team Providers Care Relay Repairer Name Role Phone Alfredo Aguira MD Primary Care Provider + [phone] Alfredo Aguiar MD Primary Care Provider + [phone] Encounter Details Date Type Department Care Team (Late st Contact Info) Description 05/21/2019 Transcribed Document [facility] Family Medicine [facility] [place] [address] ProviderEryn MD [address] [place] [address] Social History Tobacco Use Types Packs/Day Years Used Date Smoking Tobacco: Never Assessed Sex and Gender Information Value Date Recorded Sex Assigned at Not on file Legal Sex Male 5:45 PM CDT Gender Identity Not on file Sexual Orientation Not on file documented as of this encounter Miscellaneous Notes * Cerner Conversion Note - Eryn ProviderMD - 05/21/2019 1:56 PM CDT Attempt to Treat, PT Entered On: 05/21/2019 13:56 EDT Performed On: 05/21/2019 13:56 EDT by PREETHI LLANOS, PT Attempt to Treat Unable to Treat Due To : Patient Unavailable Inability to Treat Comment : MD in room having lengthy converstaion with patient Notification : RN PREETHI LLANOS, PT - 05/21/2019 13:56 EDT documented in this encounter Plan of Treatment Not on file documented as of this encounter Visit Diagnoses Not on filedocumented in this encounter Care Teams Relay Repairer Relationship Specialty Start Date End Date Alfredo Aguiar MD [address] [place] [address] PCP - General Adolescent Medicine 10/16/22 10/19/22 Alfredo Aguiar MD [address] [place] [address] PCP - General Adolescent Medicine 10/20/22 documented as of this encounter
--- OUTSIDE RECORDS SUMMARY | 2025-01-23 15:56 | XMS_ITS | Encounter Summary ---
Author Organization [employer] Address [address] [place] [address] Care Team Providers Care Patient Services Clerk Name Role Phone Alfredo Aguiar MD Primary Care Provider + [phone] Alfredo Aguiar MD Primary Care Provider + [phone] Encounter Details Date Type Department Care Team (Late st Contact Info) Description 08/18/2019 Transcribed Document [facility] [place] Family Medicine [facility] [place] [address] ProviderEryn MD [address] [place] [id number] Social History Tobacco Use Types Packs/Day Years Used Date Smoking Tobacco: Never Assessed Sex and Gender Information Value Date Recorded Sex Assigned at Not on file Legal Sex Male 5:45 PM CDT Gender Identity Not on file Sexual Orientation Not on file documented as of this encounter Miscellaneous Notes * Cerner Conversion Note - Eryn Arcos MD - 08/18/2019 5:54 AM SURGICAL INSTRUMENTS INSPECTOR Patient: LORA JAIN JR Age: 78 years Sex: Male : 1940 Associated Diagnoses: None Author: WENDIE PENG MD-INF ID Consultation/Initial Hospital Visit Date of Admission: 08/17/19 Date Consultation: 08/18/19 Physician requesting Consultation: Keegan Evaluating Physician: Dr. Wendie Peng Reason for Consultation: HPI 78 yo male who we were asked [...] were positive for a martin-sensitive Streptococcus mutans . He was not given any antibiotics. He was taken to the OR on 05/20/[address] Allison for left TKA explantation with antibiotic spacer implantation. He completed a prolonged course of parenteral therapy and was admitted yesterday for revison. Initial gram stain with no organisms, no WBCs. Allergies: NKDA Medication: no antibiotics PMH: Asthma, prostate cancer, DJD, T2DM, GERD, [...] alive and healthy SH: , lives in [place], [place]. Denies tobacco, alcohol, or illicit drug use. ROS Constitutional: [No fevers, chills, sweats] Eye: [No recent visual problems] ENMT: [No ear pain, nasal congestion, sore throat] Respiratory: [No shortness of breath, cough] Cardiovascular: [No Chest pain, palpitations, syncope] Gastrointestinal: [No nausea, vomiting, diarrhea] Genitourinary: [No hematuria] Luis Carlos/Lymph: [Negative for bruising tendency, swollen lymph glands] Endocrine: [Negative for excessive thirst, excessive hunger] Musculoskeletal: [No back pain, neck pain, no joint pain with block muscle pain, decreased range of motion] Integumentary: [No rash, pruritus, abrasions] Neurologic: [Alert & oriented X 4] Psychiatric: [No anxiety, depression] PHYSICAL EXAM: Vitals Signs (last 24 hrs) Last Charted Minimum Maximum Temp 98.2 (AUG 18 04:00) 97.6 (AUG 17 18:33) 98.5 (AUG 17 17:07) Apical HR L 55 (AUG 17 11:25) L 55 (AUG 17 11:25) L 55 (RICHMOND 15 11:25) Mon HR 74 (AUG 18 04:00) 58 (AUG 17 11:06) 83 (AUG 17 17:07) Resp Rate 16 (AUG 18 04:00) L 10 (AUG 17:) 18 (AUG 17:) SBP 98 (AUG 18 04:00) 98 (AUG 18 04:00) 137 (AUG 17 17:10) DBP L 52 (AUG 18 04:00) L 50 (AUG 17:) 74 (AUG 17 11:) MAP 65 (AUG 18 04:00) 65 (AUG 18 04:00) 98 (AUG 17 17:10) SpO2 97 (AUG 18 04:00) L 92 (AUG 17:40) 100 (AUG 17:) General: [Alert and oriented, well nourished, no acute distress]. HENT: [Normocephalic, clear tympanic membranes, normal hearing, moist oral mucosa, no scleral icterus, no sinus tenderness]. Heart: [Normal rate, regular rhythm, no murmur, gallop or edema]. Lungs: [Clear to auscultation and percussion, non-labored respiration]. Abdomen: [Soft, non-tender, non-distended, normal bowel sounds, no masses]. : [ ] no swain Musculoskeletal: [Normal range of motion and strength, no tenderness or swelling]. Skin: [Skin is warm, dry Neurologic: [Awake, alert, and oriented X3, CN II-XII intact]. Left knee with surgical dressing LABS:Labs (Last four charted values) WBC 7.8 (AUG [...] 1.0 (AUG 04) PTT 25.7 (AUG 04) MICRO: 08/17: tissue gms; nos, no cells IMAGING: /rad ASSESSMENT: 1. 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 Anemia of chronic disease/ABL 4. T2DM, tightly control for improved healing 5. Prostate cancer/prostatectomy 6. LUZ ELENA/CPAP 7. HTN RECOMMENDATIONS/PLANS: Thank you for asking us to see Lora Jain Jr. Recommend the followin. Monitor surgical cultures 2. Rocephin 2 GM IV daily 3. Amoxicillin 875 mg twice daily at discharge 4. Follow up next 08/25 at 11:[address] Danish Peng saw the patient, performed the physical examination, formulated the above treatment plan and agrees with the above. Electronically signed by [place], [facility] Conversion Rapier Insertion Loom Fixer Cerner at 11/18/2022 9:14 AM CDT documented in this encounter Plan of Treatment Not on file documented as of this encounter Visit Diagnoses Not on filedocumented in this encounter Care Teams Patient Services Clerk Relationship Specialty Start Date End Date Alfredo Aguiar MD [address] [place] [address] PCP - General Adolescent Medicine 10/16/22 10/19/22 Alfredo Aguiar MD [address] [place] [address] PCP - General Adolescent Medicine 10/20/22 documented as of this encounter
--- OUTSIDE RECORDS SUMMARY | 2025-01-23 15:56 | XMS_ITS | Encounter Summary ---
Author Organization [employer] Address [address] [facility] [place] [address] Care Team Providers Care Welding Machine Operator Electro Gas Name Role Phone Alfredo Aguiar MD Primary Care Provider + [phone] Alfredo Aguiar MD Primary Care Provider + [phone] Encounter Details Date Type Department Care Team (Late st Contact Info) Description 08/19/2019 Transcribed Document [facility] [place] [facility] [place] [address] ProviderEryn MD [address] [place] [id number] Social History Tobacco Use Types Packs/Day Years Used Date Smoking Tobacco: Never Assessed Sex and Gender Information Value Date Recorded Sex Assigned at Not on file Legal Sex Male 5:45 PM CDT Gender Identity Not on file Sexual Orientation Not on file documented as of this encounter Miscellaneous Notes * Cerner Conversion Note - Eryn Arcos MD - 08/19/2019 5:06 PM TARGET PROTECTION SPECIALIST Patient: LORA JAIN JR Age: 78 years Sex: Male : 1940 Associated Diagnoses: None Author: WENDIE PENG MD-INF ID progress note Date of Admission: 08/17/19 Date Consultation: 08/18/19 Physician requesting Consultation: eKegan Evaluating Physician: Dr. Wendie Peng Reason for Consultation: HPI 08/18/19: 78 yo male who we were asked [...] gram stain with no organisms, no WBCs. 08/19/19: He feels much better. He has started to ambulate. He has decreased left knee pain. He has remained afebrile. Allergies: NKDA Medication: no antibiotics PMH: Asthma, [...] alive and healthy SH: , lives in [place], [place]. Denies tobacco, alcohol, or illicit drug use. PHYSICAL EXAM: Vitals Signs (last 24 hrs) Last Charted Minimum Maximum Temp 97.8 (AUG 19:04) 97.8 (AUG 19:04) 99.2 (AUG 18 22:40) Mon HR 75 (AUG 19:04) 72 (AUG 18 20:03) 84 (AUG 19 05:46) Resp Rate 16 (AUG 19 05:46) 16 (AUG 18 20:03) 16 (AUG 18 20:03) SBP 111 (AUG 19 11:04) 111 (AUG 19 11:04) H 143 (AUG 19 05:46) DBP 81 (AUG 19 11:04) 64 (AUG 19 05:46) 81 (AUG 19 11:04) MAP 94 (AUG 19 11:04) 82 (AUG 19 05:46) 94 (AUG 19 11:04) SpO2 96 (AUG 19:04) L 93 (AUG 18 22:40) 97 (RICHMOND 16 20:00) General: [Alert and oriented, well nourished, no [...] dressing LABS:Labs (Last four charted values) WBC 7.9 (AUG [...] MICRO: 08/17: tissue gms; nos, no cells Cultures are no growth so far IMAGING: /rad ASSESSMENT: 1. 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 He is on intravenous ceftriaxone. We will plan for him to discharge on oral amoxicillin tomorrow. 2. 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 Anemia of [...] up next 08/25 at 11:[address] Peng 5. Discharge to rehabilitation tomorrow I discussed his situation with case management. I coordinated his care. Electronically signed by [facility], [facility] Conversion Truss Driver Helper Cerner at 11/18/2022 9:28 AM CDT documented in this encounter Plan of Treatment Not on file documented as of this encounter Visit Diagnoses Not on filedocumented in this encounter Care Teams Welding Machine Operator Electro Gas Relationship Specialty Start Date End Date Alfredo Aguiar MD [address] [place] [address] PCP - General Adolescent Medicine 10/16/22 10/19/22 Alfredo Aguiar MD [address] [place] [address] PCP - General Adolescent Medicine 10/20/22 documented as of this encounter
--- OUTSIDE RECORDS SUMMARY | 2025-01-23 15:56 | XMS_ITS | Encounter Summary ---
Author Organization [employer] Address [address] [place] [address] Care Team Providers Care Provider Engagement Executive Name Role Phone Alfredo Aguiar MD Primary Care Provider + [phone] Alfredo Aguiar MD Primary Care Provider + [phone] Encounter Details Date Type Department Care Team (Late st Contact Info) Description 05/21/2019 Transcribed Document [facility] [place] Family [place] [place] [address] ProviderEryn MD [address] [place] [id number] Social History Tobacco Use Types Packs/Day Years Used Date Smoking Tobacco: Never Assessed Sex and Gender Information Value Date Recorded Sex Assigned at Not on file Legal Sex Male 5:45 PM CDT Gender Identity Not on file Sexual Orientation Not on file documented as of this encounter Miscellaneous Notes * Cerner Conversion Note - Eryn Arcos MD - 05/21/2019 10:06 AM CDT UM Authorization Entered On: 05/21/2019 10:06 EDT Performed On: 05/21/2019 10:06 EDT by KAUR VAUGHAN RN Primary Insurance Authorization Authorization and Policy Numbers : Insurance 1 Health Plan: MEDICARE Policy Number: [id number] Authorization Number: Insurance 2 Health Plan: FOR [employer] Policy Number: [id number] Authorization Number: Insurance Primary Name : MEDICARE Policy Number: [id number] Historical Authorization Comments-Primary : No Authorization Comments Found KAUR VAUGHAN RN - 05/21/2019 10:06 EDT documented in this encounter Plan of Treatment Not on file documented as of this encounter Visit Diagnoses Not on filedocumented in this encounter Care Teams Provider Engagement Executive Relationship Specialty Start Date End Date Alfredo Aguiar MD [address] [place] [address] PCP - General Adolescent Medicine 10/16/22 10/19/22 Alrfedo Aguiar MD [address] [place] [address] PCP - General Adolescent Medicine 10/20/22 documented as of this encounter
--- OUTSIDE RECORDS SUMMARY | 2025-01-23 15:56 | XMS_ITS | Encounter Summary ---
Author Organization [employer] Address [address] [place] [address] Care Team Providers Care Braid Cutter Name Role Phone Alfredo Aguiar MD Primary Care Provider + [phone] Alfredo Aguiar MD Primary Care Provider + [phone] Encounter Details Date Type Department Care Team (Late st Contact Info) Description 05/21/2019 Transcribed Document [facility] [place] [facility] [place] [address] ProviderEryn MD [address] [place] [id number] Social History Tobacco Use Types Packs/Day Years Used Date Smoking Tobacco: Never Assessed Sex and Gender Information Value Date Recorded Sex Assigned at Not on file Legal Sex Male 5:45 PM CDT Gender Identity Not on file Sexual Orientation Not on file documented as of this encounter Miscellaneous Notes * Cerner Conversion Note - Eryn Arcos MD - 05/21/2019 8:46 AM CDT Treatment Intervention, PT Entered On: 05/23/2019 13:02 EDT Performed On: 05/23/2019 12:55 EDT by Guillermo Estevez, PT General Information, PT Visit Type, PT : Treatment Note Patient Orders : Order Date Order Ordering 05/20/2019 16:52 PT Evaluation and Treatment Ordered By: LION DAVIS MD-ORElizabeth 05/20/2019 16:52 PT Treatment Instructions Ordered By: LION DAVIS MD-ORT 05/20/2019 16:52 PT Treatment Instructions Ordered By: LION DAIVS MD-ORT 05/20/2019 16:52 PT Treatment Instructions Ordered By: LION DAVIS MD-ORT 05/20/2019 16:52 PT Treatment Instructions Ordered By: LION DAVIS MD-ORT 05/21/2019 08:46 PT Additional Treatment Ordered By: Ian Devi, PHYSICAL THERAPIST Active Diagnoses : 05/23/2019 12:00 Infection and [...] Precautions in Place : Fall prevention measures Guillermo Estevez, PT - 05/23/2019 12:55 EDT General Status Treatment Start Time : 05/23/2019 11:31 EDT Patient Left Status : Up in chair, Communication board completed, All needs met and within reach RN/PCT Informed Comment : RN OK'd PTx Treatment End Time : 05/23/2019 11:47 EDT Treatment Time : 16 Minute(s) Guillermo Estevez PT - 05/23/2019 12:55 EDT Functional Mobility Mobility Grid Supine to Sit : Rehab Minimal assistance Sit to Stand : Rehab Minimal assistance Bed to Chair : Rehab Minimal assistance Stand to Sit : Rehab Minimal assistance Sit to Supine : Rehab Minimal assistance Guillermo Estevez PT - 05/23/2019 12:55 EDT Sit to Stand Device : Belt, gait, Walker, front wheel Guillermo Estevez PT - 05/23/2019 12:55 EDT Gait Training/Assessment, PT Weight Bearing Status Maintained : Yes Weight Bearing Status : Toe touch left Gait Assistance Level : Assist, minimal Walking Distance : 32' Ambulatory Devices : Gait belt, Walker, front wheel Gait Deviations : Yes Left Lower Gait Deviation : Thao, decreased, Foot clearance, decreased, Step length, decreased Right Lower Gait Deviation : Thao, decreased, Foot clearance, decreased, Step length, decreased Gait Training Comment : Pt had 1 LOB Guillermo Estevez, PT - 05/23/2019 12:55 EDT Edu Topics Physical Therapy Education Grid Gait Training : Verbalizes understanding Use of Assistive Device : Verbalizes understanding Zenaida Guillermo, PT - 05/23/2019 12:55 EDT Indication Assesessment, PT Physical Therapy Indicated : Yes Guillermo Estevez, PT - 05/23/2019 12:55 EDT Plan of Care, PT PT Tx Plan/Goals Established w Patient : Yes Zenaida Guillermo, PT - 05/23/2019 12:55 EDT Short Term Goals Ambulation STG Grid Goal #1 Device : Walker, front wheel Distance : 75 feet TTWB Left Assist : Supervision or set-up Date to Meet : 05/24/2019 EDT Goal Status : Progressing, continue Guillermo Estevez, PT - 05/23/2019 12:55 EDT Weight Shifter Goals Mobility/Bed Mobility LTG PT Grid Goal #1 Activity : Supine to sit Assist : Independent, modified Date to Meet : 06/04/2019 EDT Goal Status : Progressing, continue Guillermo Estevez, PT - 05/23/2019 12:55 EDT Ambulation LTG Grid Goal #1 Device : Walker, front wheel Distance : 150 feet TTWB Left Cues : No cues Assist : Supervision or set-up Date to Meet : 06/04/2019 EDT Goal Status : Progressing, continue Zenaida Guillermo, PT - 05/23/2019 12:55 EDT Treatment Note Subjective Comment : Pt agreed to PTx Pt's bed was not lit, OT noted on returning Pt to bed. Pt's buttons not working and bed not inflating. Ns Jordi notified. Transferred Pt out of bed to chair. Patient's Response to Treatment : Pt tolerated tx well Assessment : Pt progressing well, Pt maintains WB with cues. Plan for Treatment : Cont with POC Guillermo Estevez, PT - 05/23/2019 12:55 EDT Pain Assessment Pain Scaled Used : 0-10 Pain scale Pain Score Pre-Intervention : 0 Guillermo Estevez, PT - 05/23/2019 12:55 EDT Image 1 - Images currently included in the form version of this document have not been included in the text rendition version of the form. Anticipated Discharge Needs, OT/PT Anticipated Discharge to : Unit, rehabilitation, Unit, long-term Recommend Continued Therapy at Discharge : Yes Guillermo Estevez, PT - 05/23/2019 12:[address] [facility] PT Charges Gait Training Each 15 Min : 1 Guillermo Estevez, PT - 05/23/2019 12:55 EDT Electronically signed by [facility], [facility] Conversion Fish Protector Cerner at 11/23/2022 1:10 PM CDT documented in this encounter Plan of Treatment Not on file documented as of this encounter Visit Diagnoses Not on filedocumented in this encounter Care Teams Braid Cutter Relationship Specialty Start Date End Date Alfredo Aguiar MD [address] [place] [address] PCP - General Adolescent Medicine 10/16/22 10/19/22 Alfredo Aguiar MD [address] [place] [address] PCP - General Adolescent Medicine 10/20/22 documented as of this encounter
--- OUTSIDE RECORDS SUMMARY | 2025-01-23 15:56 | XMS_ITS | Encounter Summary ---
Author Organization [employer] Address [address] [place] [address] Care Team Providers Care Air Technician Name Role Phone Alfredo Aguiar MD Primary Care Provider + [phone] Alfredo Aguiar MD Primary Care Provider + [phone] Encounter Details Date Type Department Care Team (Late st Contact Info) Description 08/20/2019 Transcribed Document [facility] [place] Family [place] [facility] [place] [address] ProviderEryn MD [address] [place] [id number] Social History Tobacco Use Types Packs/Day Years Used Date Smoking Tobacco: Never Assessed Sex and Gender Information Value Date Recorded Sex Assigned at Not on file Legal Sex Male 5:45 PM CDT Gender Identity Not on file Sexual Orientation Not on file documented as of this encounter Miscellaneous Notes * Cerner Conversion Note - Eryn Arcos MD - 08/20/2019 12:29 PM SILO TENDER Nursing Discharge Summary Entered On: 08/20/2019 12:31 EST Performed On: 08/20/2019 12:29 EST by KASSANDRA MEADOWS LPN Discharge Documentation Discharge Date/Time : 08/20/2019 13:00 EST Patient Disposition, General : Discharge Discharge To : Rehabilitation unit/facility Name of Receiving Facility/Provider : [place] Mode Of Departure, General Discharge : Private vehicle Accompanied By, Discharge : Daughter IV Discontinued : Yes Medications Given to Patient : No Personal Belongings With Patient : Yes Pt's Own Supply of Medications Returned : No Prescriptions Given to Patient : Other: placed in packet for rehab unit Discharge Instructions Reviewed With, Opportunity For Questions Given : Patient, Daughter Patient Education Completed : Yes Teaching Method : Explanation, Printed materials Teaching Evaluation : Verbalizes understanding Worker's Compensation Paperwork Completed : No Nurse Report w/Opportunity for Questions : Called External Facility Requested Documentation : Yes Discharge Summary Sent to : KASSANDRA Hurtado LPN - 08/20/2019 12:29 EST Electronically signed by [facility], [facility] Conversion Desk Clerks Supervisor Cerner at 11/18/2022 9:15 AM CDT documented in this encounter Plan of Treatment Not on file documented as of this encounter Visit Diagnoses Not on filedocumented in this encounter Care Teams Air Technician Relationship Specialty Start Date End Date Alfredo Aguiar MD [address] [place] [address] PCP - General Adolescent Medicine 10/16/22 10/19/22 Alfredo Aguiar MD [address] [place] [address] PCP - General Adolescent Medicine 10/20/22 documented as of this encounter
--- OUTSIDE RECORDS SUMMARY | 2025-01-23 15:56 | XMS_ITS | Encounter Summary ---
Author Organization [employer] Address [address] [place] [address] Care Team Providers Care Software Developer Consultant Name Role Phone Alfredo Aguiar MD Primary Care Provider + [phone] Alfredo Aguiar MD Primary Care Provider + [phone] Encounter Details Date Type Department Care Team (Late st Contact Info) Description 05/22/2019 Transcribed Document [facility] [place] Family Medicine [facility] [place] [address] ProviderEryn MD [address] [place] [id number] Social History Tobacco Use Types Packs/Day Years Used Date Smoking Tobacco: Never Assessed Sex and Gender Information Value Date Recorded Sex Assigned at Not on file Legal Sex Male 5:45 PM CDT Gender Identity Not on file Sexual Orientation Not on file documented as of this encounter Miscellaneous Notes * Cerner Conversion Note - Eryn Arcos MD - 05/22/2019 6:00 PM CDT Pain Assessment Entered On: 05/22/2019 18:00 EDT Performed On: 05/22/2019 18:51 EDT by Marcelina Bojorquez, RN Intervention Information: acetaminophen Performed by Marcelina Bojorquez RN on 05/22/2019 17:51:00 EDT acetaminophen,1000mg Oral Pain Assessment Pain Assessment [...] on filedocumented in this encounter Care Teams Software Developer Consultant Relationship Specialty Start Date End Date Alfredo Aguiar MD [address] [place] [address] PCP - General Adolescent Medicine 10/16/22 10/19/22 Alfredo Aguiar MD [address] [place] [address] PCP - General Adolescent Medicine 10/20/22 documented as of this encounter
--- OUTSIDE RECORDS SUMMARY | 2025-01-23 15:56 | XMS_ITS | Encounter Summary ---
Author Organization [employer] Address [address] [place] [address] Care Team Providers Care Statistical Secretary Name Role Phone Alfredo Lackey MD Primary Care Provider + [phone] Alfredo Lackey MD Primary Care Provider + [phone] Encounter Details Date Type Department Care Team (Late st Contact Info) Description 08/20/2019 Transcribed Document [facility] [place] [address] ProviderEryn MD [address] [place] [id number] Social History Tobacco Use Types Packs/Day Years Used Date Smoking Tobacco: Never Assessed Sex and Gender Information Value Date Recorded Sex Assigned at Not on file Legal Sex Male 5:45 PM CDT Gender Identity Not on file Sexual Orientation Not on file documented as of this encounter Miscellaneous Notes * Cerner Conversion Note - Eryn Arcos MD - 08/20/2019 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 [facility] [place] [id number] LORA JAIN JR :1940 Visit Time:08/17/2019 Your Visit Summary Your Care Team Admitting Physician - LION ALLISON MD-ORT Attending Physician - LION ALLISON MD-ORT Primary Care Physician - ALFREDO LACKEY (REF), -NATHANIEL Referring Physician - LION ALLISON MD-ORT PHY, NOT LISTED Your Diagnosis Infection and inflammatory reaction due to internal left knee prosthesis, initial encounter, Infection and inflammatory reaction due to internal left knee prosthesis, 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 Allison 1 wk ([phone]) on Follow-Up Appointments Follow Up with WENDIE DONATO When 08/25/2019 11:45 AM EST Where: [address] [facility] [address] [place] [address]- Business (1) Follow Up with LION ALLISON MD-ORT When 08/25/2019 12:00 AM EST Comments call to schedule time of appointment on , 2019 Where: [address] [place] [address]- Medications What How Much When Instructions Next Dose acetaminophen-oxyCODONE (Percocet 5/ 325 oral tablet) 1 Tablet(s) Oral Every 4 Hours as needed for Pain (Severe 7-10) not to exceed 6 tablets/ day Printed Prescription any time amoxicillin (amoxicillin 875 mg oral tablet) 1 Tablet(s) Oral Two Times A Day 08/20 @ 3pm aspirin (aspirin 81 mg oral tablet) 1 Tablet(s) Oral Two Times A Day Duration: 42 Day(s) Printed Prescription 08/20 @ 2100 docusate (Colace 100 mg oral capsule) 1 Capsule(s) Oral Two Times A Day as needed for for constipation Duration: 30 Day(s) Printed Prescription 08/20 @ 9pm ferrous gluconate (ferrous gluconate 324 mg (37.5 mg elemental iron) oral tablet) 1 Tablet(s) Oral Every Day Printed Prescription 08/21 @ 9am gabapentin (Neurontin 300 mg oral capsule) 1 Capsule(s) Oral At Bedtime as needed for Sleep Printed Prescription at bedtime bisoprolol 5 Milligram(s) Oral Every Day 08/21 @ 9am insulin aspart-insulin aspart protamine (NovoLOG Mix 70/ 30 FlexPen) 20 Unit(s) SubCutaneous Before Breakfast 08/21 @ 7am insulin aspart-insulin aspart protamine (NovoLOG Mix 70/ 30 FlexPen) 6 Unit(s) SubCutaneous Before Dinner 08/20 @ 5pm metFORMIN 1,000 Milligram(s) Oral Two Times A Day 08/20 @ 5pm Non Formulary (probiotic pearls acidophilus) 1 caps Oral Two Times A Day 08/20 @ 9pm omeprazole 20 Milligram(s) Oral At Bedtime 08/20 @ 10pm tiotropium (Spiriva Respimat 2.5 mcg/ inh inhalation aerosol) 2 Puff(s) Inhalation Every Day 08/21 @ 9am vilazodone (Viibryd) 40 Milligram(s) Oral At Bedtime 08/20 @ 10pm Take your medications faithfully. Do NOT skip [...] you are experiencing life-threatening issues, call your surgeon???s office or nurse navigator first, before going to the Emergency Department. Call your surgeon or nurse navigator if: ??? Your incision has increased swelling that does not get better with time, rest, and propping up your leg ??? Your incision has a foul smell or begins to open ??? You have a large amount of bleeding from incision ??? Your incision gets red, warm or increased drainage after 2 days ??? You have a fever over 101 degrees for more than 24 hours ??? You have increased swelling, redness, warmth or pain in your calf ??? You fall, but don???t have an obvious injury ??? You have questions or cause for concern regarding your total joint replacement Call 911 if: ??? You have sudden chest pain or shortness of breath ??? You fall and cannot get up ??? Life-threatening signs or symptoms ??? Stroke signs and symptoms: Facial droop, uneven smile, arm numbness, arm weakness, slurred speech, difficulty speaking or understanding If you are a patient of Dr. Allison or Dr. Haskins, call [phone] If you are a patient of Dr. Coello, call [phone] Nurse Navigator: Sil Rodriguez Office: [phone]; ; available during regular business hours Total Knee Replacement, Care After These instructions give you information about caring for yourself after your procedure. Your doctor may also give you more specific instructions. Call your doctor if you have any problems or questions after your procedure. Follow these instructions at home: Medicines ??? Take svgs-eio-ffbuctz and prescription medicines only as told by [...] cannot use soap and water, use hand international sales representative. ? Change your bandage as told by [...] Leave the ice on for 20 minutes, 2???3 times per day. ??? If directed, apply heat to the affected area as often as told by your doctor. Use the heat source that your doctor recommends, such as a moist heat pack or a heating pad. ? Place a towel between your skin and the heat source. ? Leave the heat on for 20???30 minutes. ? Remove the heat if your [...] 10/11/2012 Document Revised: 09/07/2017 Document Reviewed: 06/25/2016 [employer] Patient Education ?? 2019 [employer] gabapentin (GA ba PEN tin) Gralise, Horizant, Neurontin What is the most important information I should know about gabapentin? Some people have thoughts about suicide while taking this medicine. Children taking gabapentin may have behavior changes. Stay alert to changes in your mood or symptoms. Report any new or worsening symptoms to your doctor. Do not stop using gabapentin suddenly, even if you feel fine. What is gabapentin? Gabapentin is an anti-epileptic drug, also called an anticonvulsant. It affects chemicals and nerves in the body that are involved in the cause of seizures and some types of pain. Gabapentin is used in adults to treat nerve pain caused by herpes virus or shingles (herpes zoster). The Horizant brand of gabapentin is also used to treat restless legs syndrome (RLS). The Neurontin brand of gabapentin is also used to treat seizures in adults and children who are at least 3 years old. Use only the brand and form of gabapentin your doctor has prescribed. Check your medicine each time you get a refill to make sure you receive the correct form. Gabapentin may also be used for purposes not listed in this medication guide. What should I discuss with my healthcare provider before taking gabapentin? You should not use gabapentin if you are allergic to it. To make sure gabapentin is safe for you, tell your doctor if you have ever had: ?? kidney disease (or if you are on dialysis); ?? diabetes; ?? depression, a mood disorder, or suicidal thoughts or actions; ?? a seizure (unless you take gabapentin to treat seizures); ?? liver disease; ?? heart disease; or ?? (for patients with RLS) if you are a day sleeper or work a security shift manager. Some people have thoughts about suicide while taking this medicine. Your doctor should check your progress at regular visits. Your family or other caregivers should also be alert to changes in your mood or symptoms. It is not known whether this medicine will harm an unborn baby. Tell your doctor if you are or plan to become . Seizure control is very important during , and having a seizure could harm both mother and baby. Do not start or stop taking gabapentin for seizures without your doctor's advice, and tell your doctor right away if you become . Gabapentin can pass into breast milk, but effects on the nursing baby are not known. Tell your doctor if you are breast-feeding. How should I take gabapentin? Follow all directions on your prescription label. Do not take this medicine in larger or smaller amounts or for longer than recommended. The Horizant brand of gabapentin should not be taken during the day. For best results, take Horizant with food at about 5:00 in the evening. Both Gralise and Horizant should be taken with food. Neurontin can be taken with or without food. If you break a Neurontin tablet and take only half of it, take the other half at your next dose. Any tablet that has been broken should be used as soon as possible or within a few days. Do not crush, chew, or break an extended-release tablet. Swallow it whole. Measure liquid medicine with the dosing syringe provided, or with a special dose-measuring spoon or medicine cup. If you do not have a dose-measuring device, ask your pharmacist for one. If your doctor changes your brand, strength, or type of gabapentin, your dosage needs may change. Ask your pharmacist if you have any questions about the new kind of gabapentin you receive at the pharmacy. Do not stop using gabapentin suddenly, even if you feel fine. Stopping suddenly may cause increased seizures. Follow your doctor's instructions about tapering your dose. Wear a medical alert tag or carry an ID card stating that you have seizures. Any medical care provider who treats you should know that you take seizure medication. This medicine can cause unusual results with certain medical tests. Tell any doctor who treats you that you are using gabapentin. Store gabapentin tablets and capsules at room temperature away from light and moisture. Store the liquid medicine in the refrigerator. Do not freeze. What happens if I miss a dose? Take the missed dose as soon as you remember. Be sure to take the medicine with food. Skip the missed dose if it is almost time for your next scheduled dose. Do not take extra medicine to make up the missed dose. What happens if I overdose? Seek emergency medical attention or call the Poison Help line at . What should I avoid while taking gabapentin? This medicine may impair your thinking or reactions. Be careful if you drive or do anything that requires you to be alert. Avoid taking an antacid within 2 hours before or after you take gabapentin. Antacids can make it harder for your body to absorb gabapentin. Drinking alcohol with this medicine can cause side effects. What are the possible side effects of gabapentin? Get emergency medical help if you have signs of an allergic reaction: hives; difficult breathing; swelling of your face, lips, tongue, or throat. Seek medical treatment if you have a serious drug reaction that can affect many parts of your body. Symptoms may include: skin rash, fever, swollen glands, flu-like symptoms, muscle aches, severe weakness, unusual bruising, or yellowing of your skin or eyes. This reaction may occur several weeks after you began using gabapentin. Report any new or worsening symptoms to your doctor, such as: mood or behavior changes, anxiety, panic attacks, trouble sleeping, or if you feel impulsive, irritable, agitated, hostile, aggressive, restless, hyperactive (mentally or physically), depressed, or have thoughts about suicide or hurting yourself. Call your doctor at once if you have: ?? increased seizures; ?? severe weakness or tiredness; ?? problems with balance or muscle movement; ?? upper stomach pain; ?? chest pain, new or worsening cough with fever, trouble breathing; ?? severe tingling or numbness; ?? rapid eye movement; or ?? kidney problems--little or no urination, painful or difficult urination, swelling in your feet or ankles. Some side effects are more likely in children taking gabapentin. Contact your doctor if the child taking this medicine has any of the following side effects: ?? changes in behavior; ?? memory problems; ?? trouble concentrating; or ?? acting restless, hostile, or aggressive. Common side effects may include: ?? headache, dizziness, drowsiness, tiredness; ?? swelling in your hands or feet; ?? problems with your eyes; ?? coordination problems; or ?? (in children) fever, nausea, vomiting. This is not a complete list of side effects and others may occur. Call your doctor for medical advice about side effects. You may report side effects to FDA at 1-931-JUJ-6627. What other drugs will affect gabapentin? Taking gabapentin with other drugs that make you sleepy can worsen this effect. Ask your doctor before taking a sleeping pill, narcotic medication, muscle relaxer, or medicine for anxiety, depression, or seizures. Other drugs may interact with gabapentin, including prescription and fzma-tqg-pelqiwd medicines, vitamins, and herbal products. Tell your doctor about all your current medicines and any medicine you start or stop using. Where can I get more information? Your pharmacist can provide more information about gabapentin. Remember, keep this and all other medicines out of the reach of children, never share your medicines with others, and use this medication only for the indication prescribed. Every effort has been made to ensure that the information provided by [employer] is accurate, up-to-date, and complete, but no guarantee is made to that effect. Drug information contained herein may be time sensitive. [employer] information has been compiled for use by healthcare practitioners and consumers in the [place] and therefore [employer] does not warrant that uses outside of the [place] are appropriate, unless specifically indicated otherwise. [employer] drug information does not endorse drugs, diagnose patients or recommend therapy. [employer] drug information is an informational resource designed [...] effective or appropriate for any given patient. [employer] does not assume any responsibility for any aspect of healthcare administered with the aid of information [employer] provides. The information contained herein is not intended to cover all possible uses, directions, precautions, warnings, drug interactions, allergic reactions, or adverse effects. If you have questions about the drugs you are taking, check with your doctor, nurse or pharmacist. Copyright 2063-5592 [employer] Version: 14.. Revision Date: 05/12/2017. amoxicillin (am OX i modesta in) Moxatag What is the most important information I should know about amoxicillin? You should not use this medicine if you are allergic to any penicillin antibiotic. What is amoxicillin? Amoxicillin is a penicillin antibiotic that fights bacteria. Amoxicillin is used to treat many different types of infection caused by bacteria, such as tonsillitis, bronchitis, pneumonia, gonorrhea, and infections of the ear, nose, throat, skin, or urinary tract. Amoxicillin is also sometimes used together with another antibiotic called clarithromycin (Biaxin) to treat stomach ulcers caused by Helicobacter pylori infection. This combination is sometimes used with a stomach acid software firmware engineer called lansoprazole (Prevacid). There are many brands and forms of amoxicillin available and not all brands are listed on this leaflet. Amoxicillin may also be used for purposes not listed in this medication guide. What should I discuss with my healthcare provider before taking amoxicillin? You should not use this medicine if you are allergic to any penicillin antibiotic, such as ampicillin, dicloxacillin, oxacillin, penicillin, or ticarcillin. To make sure amoxicillin is safe for you, tell your doctor if you have: ?? asthma; ?? liver or kidney disease; ?? mononucleosis (also called 'mono'); ?? a history of diarrhea caused by taking antibiotics; or ?? food or drug allergies (especially to a cephalosporin antibiotic such as Omnicef, Cefzil, Ceftin, Keflex, and others). If you are being treated for gonorrhea, your doctor may also have you tested for syphilis, another sexually transmitted disease. Amoxicillin is not expected to harm an unborn baby. Tell your doctor if you are or plan to become during treatment. Amoxicillin can make control pills less effective. Ask your doctor about using non hormonal control (condom, diaphragm with spermicide) to prevent while taking amoxicillin. Amoxicillin can pass into breast milk and may harm a nursing baby. Tell your doctor if you are breast-feeding a baby. The amoxicillin chewable tablet may contain phenylalanine. Talk to your doctor before using this form of amoxicillin if you have phenylketonuria (PKU). How should I take amoxicillin? Follow all directions on your prescription label. Do not take this medicine in larger or smaller amounts or for longer than recommended. Take this medicine at the same time each day. The Moxatag brand of amoxicillin should be taken with food, or within 1 hour after eating a meal. Some forms of amoxicillin may be taken with or without food. Check your medicine label to see if you should take your amoxicillin with food or not. You may need to shake amoxicillin liquid well just before you measure a dose. Follow the directions on your medicine label. Measure liquid medicine with the dosing syringe provided, or with a special dose-measuring spoon or medicine cup. If you do not have a dose-measuring device, ask your pharmacist for one. You may place the liquid directly on the tongue, or you may mix it with water, milk, baby formula, fruit juice, or santos raquel. Drink all of the mixture right away. Do not save any for later use. The chewable tablet should be chewed before you swallow it. Do not crush, chew, or break an extended-release tablet. Swallow it whole. While using amoxicillin, you may need frequent blood tests. Your kidney and liver function may also need to be checked. If you are taking amoxicillin with clarithromycin and/or lansoprazole to treat stomach ulcer, use all of your medications as directed. Read the medication guide or patient instructions provided with each medication. Do not change your doses or medication schedule without your doctor's advice. Use this medicine for the full prescribed length of time. Your symptoms may improve before the infection is completely cleared. Skipping doses may also increase your risk of further infection that is resistant to antibiotics. Amoxicillin will not treat a viral infection such as the flu or a common cold. Do not share this medicine with another person, even if they have the same symptoms you have. This medicine can cause unusual results with certain medical tests. Tell any doctor who treats you that you are using amoxicillin. Store at room temperature away from moisture, heat, and light. You may store liquid amoxicillin in a refrigerator but do not allow it to freeze. Throw away any liquid amoxicillin that is not used within 14 days after it was mixed at the pharmacy. What happens if I miss a dose? Take the missed dose as soon as you remember. Skip the missed dose if it is almost time for your next scheduled dose. Do not take extra medicine to make up the missed dose. What happens if I overdose? Seek emergency medical attention or call the Poison Help line at . Overdose symptoms may include confusion, behavior changes, a severe skin rash, urinating less than usual, or seizure (black-out or convulsions). What should I avoid while taking amoxicillin? Antibiotic medicines can cause diarrhea, which may be a sign of a new infection. If you have diarrhea that is watery or bloody, stop using amoxicillin and call your doctor. Do not use anti-diarrhea medicine unless your doctor tells you to. What are the possible side effects of amoxicillin? Get emergency medical help if you have any of these signs of an allergic reaction: hives; difficulty breathing; swelling of your face, lips, tongue, or throat. Call your doctor at once if you have: ?? diarrhea that is watery or bloody; ?? fever, swollen gums, painful mouth sores, pain when swallowing, skin sores, cold or flu symptoms, cough, trouble breathing; ?? swollen glands, rash or itching, joint pain, or general ill feeling; ?? pale or yellowed skin, yellowing of the eyes, dark colored urine, fever, confusion or weakness; ?? severe tingling, numbness, pain, muscle weakness; ?? easy bruising, unusual bleeding (nose, mouth, vagina, or rectum), purple or red pinpoint spots under your skin; or ?? severe skin reaction--fever, sore throat, swelling in your face or tongue, burning in your eyes, skin pain, followed by a red or purple skin rash that spreads (especially in the face or upper body) and causes blistering and peeling. Common side effects may include: ?? stomach pain, nausea, vomiting, diarrhea; ?? vaginal itching or discharge; ?? headache; or ?? swollen, black, or 'hairy' tongue. This is not a complete list of side effects and others may occur. Call your doctor for medical advice about side effects. You may report side effects to FDA at 3-749-OPE-3945. What other drugs will affect amoxicillin? Other drugs may interact with amoxicillin, including prescription and wqwo-ghs-elaassp medicines, vitamins, and herbal products. Tell each of your health care providers about all medicines you use now and any medicine you start or stop using. Where can I get more information? Your pharmacist can provide more information about amoxicillin. Remember, keep this and all other medicines out of the reach of children, never share your medicines with others, and use this medication only for the indication prescribed. Every effort has been made to ensure that the information provided by [employer] is accurate, up-to-date, and complete, but no guarantee is made to that effect. Drug information contained herein may be time sensitive. [employer] information has been compiled for use by healthcare practitioners and consumers in the [place] and therefore [employer] does not warrant that uses outside of the [place] are appropriate, unless specifically indicated otherwise. [employer] drug information does not endorse drugs, diagnose patients or recommend therapy. [employer] drug information is an informational resource designed [...] effective or appropriate for any given patient. [facility] does not assume any responsibility for any aspect of healthcare administered with the aid of information [facility] provides. The information contained herein is not intended to cover all possible uses, directions, precautions, warnings, drug interactions, allergic reactions, or adverse effects. If you have questions about the drugs you are taking, check with your doctor, nurse or pharmacist. Copyright 9997-5199 [facility] [employer]. Version: 9.05. Revision Date: 02/22/2016. aspirin (oral) ( pir in) Arthritis Pain, Aspir 81, Aspir-Low, Emmanuel Childrens Aspirin, Durlaza, Ecotrin, Ecpirin, Fasprin, Halfprin, Miniprin What is the most important information I should know about aspirin? You should not use aspirin if you have a bleeding disorder such as hemophilia, a recent history of stomach or intestinal bleeding, or if you are allergic to an NSAID (non-steroidal anti-inflammatory drug). Aspirin can cause Otilio's syndrome, a serious and sometimes fatal condition in children. What is aspirin? Aspirin is a salicylate (er-EYD-jg-ate). It works by reducing substances in the body that cause pain, fever, and inflammation. Aspirin is used to treat pain, and reduce fever or inflammation. Aspirin is sometimes used to treat or prevent heart attacks, strokes, and chest pain (angina). Aspirin should be used for cardiovascular conditions only under the supervision of a doctor. Aspirin may also be used for purposes not listed in this medication guide. What should I discuss with my healthcare provider before taking aspirin? Do not give this medicine to a child or teenager with a fever, flu symptoms, or chicken pox. Aspirin can cause Otilio's syndrome, a serious and sometimes fatal condition in children. You should not use aspirin if you are allergic to it, or if you have: ?? a recent history of stomach or intestinal bleeding; ?? a bleeding disorder such as hemophilia; or ?? if you have ever had an asthma attack or severe allergic reaction after taking aspirin or an NSAID (non-steroidal anti-inflammatory drug). Tell your doctor if you have ever had: ?? asthma or seasonal allergies; ?? stomach ulcers; ?? liver disease; ?? kidney disease; ?? a bleeding or blood clotting disorder; ?? gout; or ?? heart disease, high blood pressure, or congestive heart failure. Taking aspirin during late may cause bleeding in the mother or the baby during delivery. Tell your doctor if you are or plan to become . You should not breast-feed while using this medicine. How should I take aspirin? Use exactly as directed on the label, or as prescribed by your doctor. Take with food if aspirin upsets your stomach. Do not crush, chew, break, or open an enteric-coated or delayed-release pill. Swallow it whole. The chewable tablet form of aspirin must be chewed before swallowing. If you use the orally disintegrating tablet or the dispersible tablet, follow all dosing instructions provided with your medicine. If you need surgery, tell your surgeon you currently use this medicine. You may need to stop for a short time. Do not take this medicine if you smell a strong vinegar odor in the aspirin bottle. The medicine may no longer be effective. Store at room temperature away from moisture and heat. What happens if I miss a dose? Since aspirin is used when needed, you may not be on a dosing schedule. Skip any missed dose if it's almost time for your next dose. Do not use two doses at one time. What happens if I overdose? Seek emergency medical attention or call the Poison Help line at . Overdose symptoms may include temporary hearing loss, seizure (convulsions), or coma. What should I avoid while taking aspirin? Avoid alcohol. Heavy drinking can increase your risk of stomach bleeding. If you are taking aspirin to prevent heart attack or stroke, avoid also taking ibuprofen (Advil, Motrin). Ibuprofen may make aspirin less effective. If you must use both medications, take the ibuprofen at least 8 hours before or 30 minutes after you take the aspirin (non-enteric coated form). Ask a doctor or pharmacist before using other medicines for pain, fever, swelling, or cold/flu symptoms. They may contain ingredients similar to aspirin (such as magnesium salicylate, ibuprofen, ketoprofen, or naproxen). What are the possible side effects of aspirin? Get emergency medical help if you have signs of an allergic reaction: hives; difficult breathing; swelling of your face, lips, tongue, or throat. Stop using aspirin and call your doctor at once if you have: ?? ringing in your ears, confusion, hallucinations, rapid breathing, seizure (convulsions); ?? severe nausea, vomiting, or stomach pain; ?? bloody or tarry stools, coughing up blood or vomit that looks like coffee grounds; ?? fever lasting longer than 3 days; or ?? swelling, or pain lasting longer than 10 days. Common side effects may include: ?? upset stomach, heartburn; ?? drowsiness; or ?? mild headache. This is not a complete list of side effects and others may occur. Call your doctor for medical advice about side effects. You may report side effects to FDA at 1-214-POA-8724. What other drugs will affect aspirin? Ask your doctor before using aspirin if you take an antidepressant. Taking certain antidepressants with aspirin may cause you to bruise or bleed easily. Ask a doctor or pharmacist before using aspirin with any other medications, especially: ?? a blood thinner (warfarin, Coumadin, Jantoven), or other medication used to prevent blood clots; or ?? other salicylates such as Nuprin Backache Caplet, Kaopectate, KneeRelief, Pamprin Cramp Formula, Pepto-Bismol, Tricosal, Trilisate, and others. This list is not complete. Other drugs may affect aspirin, including prescription and uuoz-fst-ngzwgjr medicines, vitamins, and herbal products. Not all possible drug interactions are listed here. Where can I get more information? Your pharmacist can provide more information about aspirin. Remember, keep this and all other medicines out of the reach of children, never share your medicines with others, and use this medication only for the indication prescribed. Every effort has been made to ensure that the information provided by [employer] is accurate, up-to-date, and complete, but no guarantee is made to that effect. Drug information contained herein may be time sensitive. [employer] information has been compiled for use by healthcare practitioners and consumers in the [place] and therefore [employer] does not warrant that uses outside of the [place] are appropriate, unless specifically indicated otherwise. [employer] drug information does not endorse drugs, diagnose patients or recommend therapy. [employer] drug information is an informational resource designed [...] effective or appropriate for any given patient. [facility] does not assume any responsibility for any aspect of healthcare administered with the aid of information [facility] provides. The information contained herein is not intended to cover all possible uses, directions, precautions, warnings, drug interactions, allergic reactions, or adverse effects. If you have questions about the drugs you are taking, check with your doctor, nurse or pharmacist. Copyright 8780-3562 [employer] Version: .. Revision Date: 11/02/2017. ferrous gluconate (DEREK us GLOO koe karon) Yue Lopez What is the most important information I should know about ferrous gluconate? You should not use this medicine if you have hemochromatosis, hemosiderosis, or hemolytic anemia. What is ferrous gluconate? Ferrous gluconate is a type of iron. You normally get iron from the foods you eat. In your body, iron becomes a part of your hemoglobin (HEEM o cecilia bin) and myoglobin (MY o cecilia bin). Hemoglobin carries oxygen through your blood to tissues and organs. Myoglobin helps your muscle cells store oxygen. Ferrous gluconate is used to treat or prevent iron deficiency anemia (a lack of red blood cells caused by having too little iron in the body). Ferrous gluconate may also be used for purposes not listed in this medication guide. What should I discuss with my healthcare provider before taking ferrous gluconate? You should not use ferrous gluconate if you are allergic to it, or if you have: ?? iron overload disorder (hemochromatosis, hemosiderosis); or ?? hemolytic anemia (caused by the breakdown of red blood cells). To make sure ferrous gluconate is safe for you, tell your doctor if you have ever had: ?? ulcerative colitis; ?? stomach ulcers or similar stomach problems; ?? thalassemia (a genetic disorder of red blood cells); or ?? if you receive regular blood transfusions. Ask a doctor before using this medicine if you are or breast-feeding. Your dose needs may be different during or while you are nursing. Ferrous gluconate is not approved for use by anyone younger than 18 years old. How should I take ferrous gluconate? Use this medication exactly as directed on the label, or as prescribed by your doctor. Do not use it in larger amounts or for longer than recommended. Take ferrous gluconate on an empty stomach, at least 1 hour before or 2 hours after a meal. Ferrous gluconate may be taken with food if it upsets your stomach. Take this medicine with a full glass of water or juice. Measure liquid medicine with the dosing syringe provided, or with a special dose-measuring spoon or medicine cup. If you do not have a dose-measuring device, ask your pharmacist for one. Do not crush, chew, or break an extended-release tablet. Swallow the pill whole. Ferrous gluconate can stain your teeth, but this effect is temporary. To prevent tooth staining, mix the liquid form of ferrous gluconate with water or fruit juice (not with milk) and drink the mixture through a straw. You may also clean your teeth with baking soda once per week to treat any tooth staining. Ferrous gluconate may be only part of a complete program of treatment that also includes a special diet. Follow the diet plan created for you by your doctor or nutrition counselor. Get familiar with the list of foods you should eat to make sure you get enough iron in your diet. Store at room temperature, away from moisture [...] or call the Poison Help line at if you think you have used too much of this medicine, or if a child has accidentally swallowed it. An overdose of ferrous gluconate can be fatal to a child. Overdose symptoms may include drowsiness, severe nausea or stomach pain, vomiting, bloody diarrhea, coughing up blood or vomit that looks like coffee grounds, shallow breathing, weak and rapid pulse, cold or clammy skin, blue lips, and seizure (convulsions). What should I avoid while taking ferrous gluconate? Ask your doctor before using any vitamin or mineral supplement, or an antacid. Use only the type of antacid or supplements that your doctor recommends. Some minerals or antacids can make it harder for your body to absorb ferrous gluconate. Avoid taking antacids or antibiotics within 2 hours before or 2 hours after taking ferrous gluconate. This is especially important if you take: ?? ciprofloxacin, levofloxacin, lomefloxacin, norfloxacin, ofloxacin; or ?? demeclocycline, doxycycline, minocycline, or tetracycline. Certain foods can also make it harder for your body to absorb ferrous gluconate. Avoid taking this medicine within 1 hour before or 2 hours after eating fish, meat, liver, and whole grain or 'fortified' breads or cereals. What are the possible side effects of ferrous gluconate? Get emergency medical help if you have signs of an allergic reaction: hives, blistering or peeling skin; fever; difficulty breathing; swelling of your face, lips, tongue, or throat. Call your doctor at once if you have: ?? bright red blood in your stools; ?? black or tarry stools; ?? a fever; ?? stomach pain; ?? coughing up blood or vomit that looks like coffee grounds; or ?? pain in your chest or throat when swallowing a ferrous gluconate tablet. Common side effects may include: ?? constipation, diarrhea; ?? nausea, vomiting, stomach pain; ?? loss of appetite; ?? green-colored stools; or ?? temporary staining of the teeth. This is not a complete list of side effects and others may occur. Call your doctor for medical advice about side effects. You may report side effects to FDA at 3-424-YJD-4934. What other drugs will affect ferrous gluconate? Other drugs may interact with ferrous gluconate, including prescription and mnsw-oqj-fpxslqg medicines, vitamins, and herbal products. Tell your doctor about all your current medicines and any medicine you start or stop using. Where can I get more information? Your pharmacist can provide more information about ferrous gluconate. Remember, keep this and all other medicines out of the reach of children, never share your medicines with others, and use this medication only for the indication prescribed. Every effort has been made to ensure that the information provided by [employer] is accurate, up-to-date, and complete, but no guarantee is made to that effect. Drug information contained herein may be time sensitive. [employer] information has been compiled for use by healthcare practitioners and consumers in the [place] and therefore [employer] does not warrant that uses outside of the [place] are appropriate, unless specifically indicated otherwise. [employer] drug information does not endorse drugs, diagnose patients or recommend therapy. [employer] drug information is an informational resource designed [...] effective or appropriate for any given patient. [employer] does not assume any responsibility for any aspect of healthcare administered with the aid of information [employer] provides. The information contained herein is not intended to cover all possible uses, directions, precautions, warnings, drug interactions, allergic reactions, or adverse effects. If you have questions about the drugs you are taking, check with your doctor, nurse or pharmacist. Copyright 2037-6544 [employer] Version: 2.01. Revision Date: 04/28/2017. acetaminophen and oxycodone (a SEET a MIN [...] may report side effects to FDA at 5-584-FDX-1415. What other drugs will affect acetaminophen and [...] affect acetaminophen and oxycodone, including prescription and nlpm-mrw-zlyshzz medicines, vitamins, and herbal products. Not all [...] to ensure that the information provided by [employer] is accurate, up-to-date, and complete, but no guarantee is made to that effect. Drug information contained herein may be time sensitive. [employer] information has been compiled for use by healthcare practitioners and consumers in the [place] and therefore [employer] does not warrant that uses outside of the [place] are appropriate, unless specifically indicated otherwise. [employer] drug information does not endorse drugs, diagnose patients or recommend therapy. [employer] drug information is an informational resource designed [...] effective or appropriate for any given patient. [employer] does not assume any responsibility for any aspect of healthcare administered with the aid of information [employer] provides. The information contained herein is not intended to cover all possible uses, directions, precautions, warnings, drug interactions, allergic reactions, or adverse effects. If you have questions about the drugs you are taking, check with your doctor, nurse or pharmacist. Copyright 2165-6440 [employer] Version: 18.02. Revision Date: 06/30/2018. docusate (oral/rectal) (DOK ue sate) Colace, Diocto, Doc-Q-Lace, Docu, Doculase, Docusil, Docusoft [...] hands before and after using the enema. documented in this encounter Plan of Treatment Not on file documented as of this encounter Visit Diagnoses Not on filedocumented in this encounter Care Teams Statistical Secretary Relationship Specialty Start Date End Date Alfredo Lackey MD [address] [place] [id number] PCP - General Adolescent Medicine 10/16/22 10/19/22 Alfredo Lackey MD [address] [place] [id number] PCP - General Adolescent Medicine 10/20/22 documented as of this encounter
--- OUTSIDE RECORDS SUMMARY | 2025-01-23 15:56 | XMS_ITS | Encounter Summary ---
Author Organization [employer] Address [address] [place] [address] Care Team Providers Care Milk Inspector Name Role Phone Alfredo Aguiar MD Primary Care Provider + [phone] Alfredo Aguiar MD Primary Care Provider + [phone] Encounter Details Date Type Department Care Team (Late st Contact Info) Description 08/19/2019 Transcribed Document [facility] [place] [facility] [place] [address] ProviderEryn MD [address], [place] [id number] Social History Tobacco Use Types Packs/Day Years Used Date Smoking Tobacco: Never Assessed Sex and Gender Information Value Date Recorded Sex Assigned at Not on file Legal Sex Male 5:45 PM CDT Gender Identity Not on file Sexual Orientation Not on file documented as of this encounter Miscellaneous Notes * Cerner Conversion Note - Eryn ProviderMD - 08/19/2019 5:00 AM SENIOR NURSE MANAGER Chart Check - Review Order Profile Entered On: 08/19/2019 5:50 EST Performed On: 08/19/2019 5:00 EST by Jess Reno Chart Check Powerplans Initiated/Discontinued as Appropriate : Yes All Active Orders Reviewed : Yes Jess Reno - 08/19/2019 5:50 EST Electronically signed by [place] [facility] Conversion Esol Teacher Assistant Harjinderner at 11/18/2022 9:30 AM CDT documented in this encounter Plan of Treatment Not on file documented as of this encounter Visit Diagnoses Not on filedocumented in this encounter Care Teams Milk Inspector Relationship Specialty Start Date End Date Alfredo Aguiar MD [address] [place] [id number] PCP - General Adolescent Medicine 10/16/22 10/19/22 Alfredo Aguiar MD [address] [place] [id number] PCP - General Adolescent Medicine 10/20/22 documented as of this encounter
--- OUTSIDE RECORDS SUMMARY | 2025-01-23 15:57 | XMS_ITS | Encounter Summary ---
Author Organization [email or web address] Address [address] [place] [address] Care Team Providers Care International Project Engineer Name Role Phone Alfredo Aguiar MD Primary Care Provider + [phone] Alfredo Aguiar MD Primary Care Provider + [phone] Encounter Details Date Type Department Care Team (Late st Contact Info) Description 05/22/2019 Transcribed Document [facility] [place] [facility] [place] [address] ProviderEryn MD [address] [place] [id number] Social History Tobacco Use Types Packs/Day Years Used Date Smoking Tobacco: Never Assessed Sex and Gender Information Value Date Recorded Sex Assigned at Not on file Legal Sex Male 5:45 PM CDT Gender Identity Not on file Sexual Orientation Not on file documented as of this encounter Miscellaneous Notes * Cerner Conversion Note - Eryn ProviderMD - 05/22/2019 5:00 PM CDT Chart Check - Review Order Profile Entered On: 05/22/2019 18:01 EDT Performed On: 05/22/2019 17:00 EDT by Marcelina Bojorquez, RN Chart Check Powerplans Initiated/Discontinued as Appropriate : Yes All Active Orders Reviewed : Yes Chart Reviewed With : Marcelina Bojorquez, Marcelina Sharpe, RN - 05/22/2019 18:01 EDT Electronically signed by Edward Paris Conversion Supervisor Type Disk Quality Control Cerner at 11/18/2022 9:15 AM CDT documented in this encounter Plan of Treatment Not on file documented as of this encounter Visit Diagnoses Not on filedocumented in this encounter Care Teams International Project Engineer Relationship Specialty Start Date End Date Alfredo Aguiar MD [address] [place] [id number] PCP - General Adolescent Medicine 10/16/22 10/19/22 Alfredo Aguiar MD [address] [place] [id number] PCP - General Adolescent Medicine 10/20/22 documented as of this encounter
--- OUTSIDE RECORDS SUMMARY | 2025-01-23 15:57 | XMS_ITS | Encounter Summary ---
Author Organization [employer] Address [address] [place] [address] Care Team Providers Care Referral Clerk Name Role Phone Alfredo Aguiar MD Primary Care Provider + [phone] Alfredo Aguiar MD Primary Care Provider + [phone] Encounter Details Date Type Department Care Team (Late st Contact Info) Description 05/22/2019 Transcribed Document [facility] [place] [facility] [place] [address] ProviderEryn MD [address] [place] [phone] Social History Tobacco Use Types Packs/Day Years Used Date Smoking Tobacco: Never Assessed Sex and Gender Information Value Date Recorded Sex Assigned at Not on file Legal Sex Male 5:45 PM CDT Gender Identity Not on file Sexual Orientation Not on file documented as of this encounter Miscellaneous Notes * Cerner Conversion Note - Eryn Arcos MD - 05/22/2019 12:00 PM CDT Pain Assessment Entered On: 05/22/2019 18:00 EDT Performed On: 05/22/2019 13:48 EDT by Marcelina Bojorquez, RN Intervention Information: acetaminophen Performed by Marcelina Bojorquez RN on 05/22/2019 12:48:00 EDT acetaminophen,1000mg Oral Pain Assessment Pain Assessment : Follow-up assessment Pain Scale Goal : 3 Pain Scale Used : 0-10 Scale Marcelina Bojorquez RN - 05/22/2019 18:00 EDT Pain Scale Intensity : 1 Marcelina Bojorquez RN - 05/22/2019 18:00 EDT Image 4 - Images currently included in the form version of this document have not been included in the text rendition version of the form. documented in this encounter Plan of Treatment Not on file documented as of this encounter Visit Diagnoses Not on filedocumented in this encounter Care Teams Referral Clerk Relationship Specialty Start Date End Date Alfredo Aguiar MD [address] [place] [id number] PCP - General Adolescent Medicine 10/16/22 10/19/22 Alfredo Aguiar MD [address] [place] [id number] PCP - General Adolescent Medicine 10/20/22 documented as of this encounter
--- OUTSIDE RECORDS SUMMARY | 2025-01-23 15:57 | XMS_ITS | Encounter Summary ---
Author Organization [employer] Address [address] [place] [address] Care Team Providers Care Railroad Brakeman Name Role Phone Alfredo Aguiar MD Primary Care Provider + [phone] Alfredo Aguiar MD Primary Care Provider + [phone] Encounter Details Date Type Department Care Team (Late st Contact Info) Description 05/22/2019 Transcribed Document [facility] [place] [facility] [place] [address] ProviderEryn MD [address] [place] [id number] Social History Tobacco Use Types Packs/Day Years Used Date Smoking Tobacco: Never Assessed Sex and Gender Information Value Date Recorded Sex Assigned at Not on file Legal Sex Male 5:45 PM CDT Gender Identity Not on file Sexual Orientation Not on file documented as of this encounter Miscellaneous Notes * Cerner Conversion Note - Eryn Arcos MD - 05/22/2019 5:00 AM CDT Chart Check - Review Order Profile Entered On: 05/22/2019 4:51 EDT Performed On: 05/22/2019 5:00 EDT by Maegan Tracey RN-Nishant Chart Check Powerplans Initiated/Discontinued as Appropriate : Yes All Active Orders Reviewed : Yes Maegan Tracey RN-Nishant - 05/22/2019 4:51 EDT documented in this encounter Plan of Treatment Not on file documented as of this encounter Visit Diagnoses Not on filedocumented in this encounter Care Teams Railroad Brakeman Relationship Specialty Start Date End Date Alfredo Aguiar MD [address] [place] [id number] PCP - General Adolescent Medicine 10/16/22 10/19/22 Alfredo Aguiar MD [address] [place] [address] PCP - General Adolescent Medicine 10/20/22 documented as of this encounter
--- OUTSIDE RECORDS SUMMARY | 2025-01-23 15:57 | XMS_ITS | Encounter Summary ---
Author Organization [email or web address] Address [address] [place] [address] Care Team Providers Care Able Seaman Name Role Phone Alfredo Aguiar MD Primary Care Provider + [phone] Alfredo Aguiar MD Primary Care Provider + [phone] Encounter Details Date Type Department Care Team (Late st Contact Info) Description 08/19/[address] [facility] Family Medicine [facility] [place] [address] ProviderEryn MD [address] [place] [address] [id number] Social History Tobacco Use Types Packs/Day Years Used Date Smoking Tobacco: Never Assessed Sex and Gender Information Value Date Recorded Sex Assigned at Not on file Legal Sex Male 5:45 PM CDT Gender Identity Not on file Sexual Orientation Not on file documented as of this encounter Miscellaneous Notes * Cerner Conversion Note - Eryn ProviderMD - 08/19/2019 6:00 PM WARPING MILL OPERATOR Pain Assessment Entered On: 08/19/2019 19:59 EST Performed On: 08/19/2019 18:19 EST by Gabrielle Persaud RN Intervention Information: acetaminophen Performed by Gabrielle Persaud RN on 08/19/2019 17:19:00 EST acetaminophen,1000mg Oral Pain Assessment Pain Assessment : Follow-up assessment Pain Scale Goal : 4 Pain Scale Used : 0-10 Scale Location : Knee, left Onset : Acute Gabrielle Persaud RN - 08/19/2019 19:58 EST Pain Scale Intensity : 2 Gabrielle Persaud RN - 08/19/2019 19:58 EST Image 4 - Images currently included in the form version of this document have not been included in the text rendition version of the form. documented in this encounter Plan of Treatment Not on file documented as of this encounter Visit Diagnoses Not on filedocumented in this encounter Care Teams Able Seaman Relationship Specialty Start Date End Date Alfredo Aguiar MD [address] [place] [address] PCP - General Adolescent Medicine 10/16/22 10/19/22 Alfredo Aguiar MD [address] [place] [address] PCP - General Adolescent Medicine 10/20/22 documented as of this encounter
[2025-01-23 15:59] LABS: Microscopic, Urine URINE MICROSCOPIC (MICROSCOPIC)
[2025-01-23 16:13] LABS: Hematocrit 42.8 % (42.0-52.0); Hemoglobin 14.1 g/dL (14.1-18.0); Mean Corpuscular HGB Conc 32.9 g/dL (31.8-35.4); Mean Corpuscular Hemoglobin 30.1 pg (27.0-31.2); Mean Corpuscular Volume 91.3 fl (80-94); Nucleated Red Blood Cells # 0 10^3/uL; Nucleated Red Blood Cells % 0 %; Platelet Count 239 K/mm3 (142-424); Red Blood Count 4.69 M/mm3 (4.60-6.20); Red Cell Distribution Width 13.8 % (11.5-17.5); Red Cell Distribution Width-SD 46.5 fL; White Blood Count 6.4 K/mm3 (4.8-10.8)
[2025-01-23 16:19] LABS: Appearance,Urine CLEAR (Clear); Bilirubin,Urine Negative (Negative); Blood, Urine Negative (Negative); Color,Urine YELLOW (Yellow); Glucose,Urine (UA) 3+ (Negative); Ketones,Urine Negative (Negative); Leukocyte Esterase,Urine Negative (Negative); Nitrate,Urine Negative (Negative); Protein,Urine Negative (Negative); Urobilinogen,Urine 0.2 EU/dl (0.2)
[2025-01-23 16:46] LABS: Creatinine,Urine Random 120 mg/dL (Not Estab.)
[2025-01-23 16:57] LABS: Bacteria,Urine Trace /lpf; Squamous Epithelial Cell,Urine Occasional #/hpf (0-5); WBC,Urine Occasional #/hpf (0-3)
[2025-01-23 17:30] LABS: Anion Gap 9.6 mEq/L (5-15); Blood Urea Nitrogen 28 mg/dl (9-20); Calcium 8.9 mg/dl (8.4-10.2); Carbon Dioxide 26 mmol/L (22.0-30.0); Chloride 104 mmol/L (98-107); Estimated Glomerular Filt Rate 32 ml/min (>60); GFR (African American) 39 ML/MIN (>60); Glucose 169 mg/dl (74-100); Phosphorous 3.9 mg/dl (2.5-4.5); Potassium 4.6 mmoL/L (3.5-5.1); Sodium 135 mmol/L (136-145)
[2025-01-23 17:47] LABS: 25-OH Vitamin D, Total 74.2 ng/mL (30-100)
== END 2025-01-23 23:59 | disposition home or self-care (01) ==
LOC: LAB 15:53
PROVIDERS: PCP Internal Medicine Adolescent Medicine; Visit Provider Nurse Practitioner
DX: N18.32 Chronic kidney disease, stage 3b (principal)
CPT/HCPCS: 36415; 80069; 81001; 82306; 82570; 83970; 84156; 85027

== ENCOUNTER 2025-04-18 11:55 | Outpatient (CLI) | payer MEDICARE, OTHER, SELFPAY ==
--- OUTSIDE RECORDS SUMMARY | 2025-04-18 11:58 | XMS_ITS | Clinical Summary ---
Author Organization [facility] Address [address] [place] [address] Phone Care Team Providers Care Welt Insole Channeler Name Role Phone Danish MALDONADO, Baljinder Jara [facility] [phone] [ ] Conditions or Problems Problem Name Problem Code Onset Date Status Entry Date Provider Comment Standard Description Annotate Acute nontraumatic kidney injury 762088987129 103 (SNOMED CT) 11/23 Active 11/23 Baljinder Peng MD Acute nontraumatic kidney injury Anemia due to acute blood loss 051753163 (SNOMED CT) 08/24 Active 08/24 Michelle Mcmanus [...] diabetes mellitus without complications Benign Essential Hypertension 14434891 (SNOMED CT) 08/14 Active 08/14 Michelle Mcmanus Benign hypertension Malignant neoplasm of prostate 230123019 (SNOMED CT) 08/14 Active 08/14 Michelle Mcmanus Malignant neoplasm of prostate Medications Medication Instructions Start Date Stop Date Generic Name NDC Provider AMOXICILLIN 875 MG TABS Take by mouth twice a day 3 AMOXICILLIN 55724290359 Baljinder Peng MD AMOXICILLIN 875 MG TABS Take by mouth twice a day 3 AMOXICILLIN 38756647405 Baljinder Peng MD AMOXICILLIN 875 MG TABS Take one (1) tablet by mouth twice a day 1 AMOXICILLIN 15059020392 Baljinder Peng MD AMOXICILLIN 875 MG TABS 1 by mouth twice a day 3 AMOXICILLIN 12537233718 Baljinder Peng MD AMOXICILLIN-POT CLAVULANATE 875-125 MG TABS one po bid 5 AMOXICILLIN-PO T CLAVULANATE 89217431250 Baljinder Peng MD AMOXICILLIN-POT CLAVULANATE 875-125 MG TABS one po bid 5 AMOXICILLIN-PO T CLAVULANATE 42071391152 Baljinder Peng MD AMOXICILLIN 875 MG TABS 1 by mouth twice a day 3 AMOXICILLIN 70524228822 Baljinder Peng MD VIIBRYD 40 MG TABS Take 1 tablet by mouth daily at bedtime 1 VILAZODONE HCL 51782565890 Shireen Fernandes PERCOCET 5-325 MG TABS 1 tablet every 4 hours as needed 1 OXYCODONE-ACET AMINOPHEN 87671750088 Shireen Fernandes [facility] OMEPRAZOLE 20 MG TBDD Take 1 tablet by mouth daily at bedtime 1 OMEPRAZOLE 82079803669 Shireen Fernandes NEURONTIN 300 MG CAPS Take 1 tablet by mouth daily at bedtime as needed 1 GABAPENTIN 21667001951 Shireen Fernandes GLUCOPHAGE 1000 MG ORAL TABLET Take one (1) tablet by mouth twice a day 1 METFORMIN HCL 02538288981 Shireen Fernandes COLACE 100 MG CAPS Take one (1) tablet by mouth twice a day as needed DOCUSATE SODIUM 13806244388 Shireen Fernandes BISOPROLOL FUMARATE 5 MG TABS Take 1 tablet by mouth daily BISOPROLOL FUMARATE 02508221526 Shireen Fernandes ADULT ASPIRIN REGIMEN 81 MG ORAL TABLET DELAYED RELEASE Take one (1) tablet by mouth twice a day ASPIRIN 87862212320 Shireen Fernandes AMOXICILLIN 875 MG TABS Take one (1) tablet by mouth twice a day AMOXICILLIN 92812410147 Shireen Fernandes BISOPROLOL FUMARATE 5 MG TABS 1 tab daily BISOPROLOL FUMARATE 33338598646 Shireen Fernandes ELIQUIS 2.5 MG TABS 1 tab, BID APIXABAN 05737596690 Shireen Fernandes [facility] IRON 325 (65 Fe) MG TABS 1 tab daily FERROUS SULFATE 83671996051 Shireen Fernandes GLUCOPHAGE 1000 MG ORAL TABLET 1 tab, BID METFORMIN HCL 20155784716 Shireen Fernandes EQ OMEPRAZOLE 20 MG TBEC 1 tab, at bedtime OMEPRAZOLE 25058536774 Shireen Fernandes VIIBRYD 40 MG TABS 1 tab, at bedtime VILAZODONE HCL 07628340603 Shireen Fernandes NOVOLOG MIX 70/30 FLEXPEN (70-30) 100 UNIT/ML SUPN Takes 20 units at breakfast and 6 units at dinner INSULIN ASPART PROT & ASPART 94579141463 Shireen Fernandes SPIRIVA HANDIHALER 18 MCG CAPS Takes two inhalations daily TIOTROPIUM BROMIDE MONOHYDRATE 87299885268 Shireen Fernandes MOTRIN IB 200 MG TABS Takes 400mg every 6 hours for pain as needed. IBUPROFEN 33250238862 Shireen Fernandes CEFTRIAXONE SODIUM Rocephin 2G IV [id number] RIDGE(Caretender s administers at [place])/[facility] dose, labs, PICC care 3 CEFTRIAXONE SODIUM Jayla W MOTRIN IB 200 MG TABS Takes 400mg every 6 hours for pain as needed. 5 IBUPROFEN 97949600238 May Munoz SPIRIVA HANDIHALER 18 MCG CAPS Takes two inhalations daily 5 TIOTROPIUM BROMIDE MONOHYDRATE 97098367523 May Munoz NOVOLOG MIX 70/30 FLEXPEN (70-30) 100 UNIT/ML SUPN Takes 20 units at breakfast and 6 units at dinner INSULIN ASPART PROT & ASPART 89098669957 May Munoz COLACE 100 MG CAPS 1 cap, PRN, BID 1 DOCUSATE SODIUM 46917649068 May Munoz PERCOCET 5-325 MG TABS 1 tab, PRN, Q4H 1 OXYCODONE-ACET AMINOPHEN 23881880909 May Munoz CEFTRIAXONE SODIUM Rocephin 2G IV [id number] RIDGE(Caretender s administers at [place])/[facility] dose, labs, PICC care 3 CEFTRIAXONE SODIUM Ban Potts RN CEFTRIAXONE SODIUM Rocephin 2G IV [id number] RS/PERSONAL CARE UNTIL [facility] 3 CEFTRIAXONE SODIUM Ban Potts RN VIIBRYD 40 MG TABS 1 tab, at bedtime 1 VILAZODONE HCL 33243864765 Shireen Fernandes PERCOCET 5-325 MG TABS 1 tab, PRN, Q4H 1 OXYCODONE-ACET AMINOPHEN 57959864754 Shireen Fernandes EQ OMEPRAZOLE 20 MG TBEC 1 tab, at bedtime 1 OMEPRAZOLE 33424500013 Shireen Fernandes GLUCOPHAGE 1000 MG ORAL TABLET 1 tab, BID 1 METFORMIN HCL 32659937926 Shireen Fernandes [facility] IRON 325 (65 Fe) MG TABS 1 tab daily FERROUS SULFATE 03824083974 Shireen Fernandes ELIQUIS 2.5 MG TABS 1 tab, BID APIXABAN 22390551596 Shireen Fernandes COLACE 100 MG CAPS 1 cap, PRN, BID DOCUSATE SODIUM 56682643798 Shireen Fernandes BISOPROLOL FUMARATE 5 MG TABS 1 tab daily BISOPROLOL FUMARATE 77727394926 Shireen Fernandes Medications Administered No information available. Allergies, Adverse Reactions, Alerts No information available. Results Date Name Value Unit Range Flag Description Clinical Lists Update: Prelo ad HGBA1C 10.7 % Hemoglobin A1c/Hemoglobin, total in Blood - % External Other: Patient port al update - Email Push, [employer] ... PAT E-MAIL [email or web address] patient's e-mail address External Other: Patient port al update - EmailStatus, [facility] Exara ... PATPORTALPIN Active This deena l be [...] Name Date Entry Date CPT-sl STAT Labs [id number] CBC with Differential 2019 CPT-41748 Sedimentation Rate (ESR) 202 CPT-88754 C- reactive protein CPT-95360 CMP CPT-sl STAT Labs CPT-sl STAT Labs CPT-75868 CMP [id number] CBC with Differential 2019 CPT-01214 C- reactive protein CPT-19657 Sedimentation Rate (ESR) 202 CPT-sl STAT Labs CPT-sl STAT Labs CPT-68374 CMP [id number] CBC with Differential 2019 CPT-23755 C- reactive protein CPT-84664 Sedimentation Rate (ESR) 202 CPT- stat weekly [...]
--- OUTSIDE RECORDS SUMMARY | 2025-04-18 11:59 | XMS_ITS | Clinical Summary ---
Author Organization [facility] Address [address] [place] [address] Care Team Providers Care Core Dropper Name Role Phone Provider, No Known Primary Care Provider Unavail able Allergies No known active allergies Medications HYDROcodone-shelbie taminophen (NORCO) 5-325 MG per tablet Take 1-2 tablets by mouth every 4-6 hours as needed 15 tablet 08/13/2017 8:52 AM EST 08/13/2017 Active Social History Tobacco Use Types Packs/Day Years Used Date Smoking Tobacco: Never Assessed Abuse Screen Answer Date Recorded Unsafe at Home or Work/School Not on file Feels Threatened by Someone? Not on file 04/2023 Does Anyone Keep You from Co ntacting Others or Doint Things Outside the Home? Not on file 05/11/2023 Physical Sign of Abuse Present Not on file 1 Housing Stability Answer Date Recorded Current Living Arrangements Not on file 04/2023 Potentially Unsafe Housing Conditions Not on portillo e 05/11/2023 Family and Community Support Answer Keith e Recorded Help with Day-to-Day Activities Not on file 05/11/2023 Lonely or Isolated Not on file 05/11/2023 Employment Answer Date Recorded Do you want help finding or keeping work or a charity b? Not on file 05/11/2023 Disabilities Answer Date Recorded Concentrating, Remembering, or Making Decisions Difficulty Not on file 05/11/2023 Doing Errands Independently Difficulty Not on fi le 05/11/2023 Education Answer Date Recorded Help with school or training? Not on file Preferred Language Not on file 05/11/2023 Sex and Gender Information Value Date Recorded Sex Assigned at Not on file Legal Sex Male 8:25 AM EST Gender Identity Not on file Sexual Orientation Not on file Plan of Treatment Health Maintenance Due Date Last Done Comments ANNUAL PHYSICAL 1940 TDAP/TD VACCINES (1 - Tdap) 1957 Pneumococcal Vaccine 50+ (1 of 1 - PCV) 1988 RSV Vaccine - Adults (1 - 1- dose 75+ series) 2013 COVID-19 Vaccine (1 - 2023-2 5 season) 2025 INFLUENZA VACCINE 05/03/2025 04/22/2019 ZOSTER VACCINE Completed 11/09/2018, 04/02/2018 HEMOGLOBIN A1C Discontinued 02/01/2025, 10/01, 06/14/2024, Additional history exists Insurance MEDICARE A & B [facility] Care Teams Core Dropper Relationship Specialty Start Date End Date Provider, No Known [facility] [place] [address] PCP - General 06/23/19
--- OUTSIDE RECORDS SUMMARY | 2025-04-18 11:59 | XMS_ITS | Encounter Summary ---
Author Organization [facility] Address [address] [place] [address] Care Team Providers Care Sql Architect Name Role Phone Alfredo Aguiar MD Primary Care Provider [phone] Reason for Visit * Reason Comments Med Refill Encounter Details Date Type Department Care Team (Late st Contact Info) Description 10/07/2023 Refill [facility] [address] [place] [address] Lizzie Farmer, MANAGER AEROSPACE [address] [facility] [address] [place] [address] Vitamin D deficiency Social History Tobacco [...] Care Team (Late st Contact Info) Description 04/24/2025 8:45 AM EDT Office Visit [facility] [address] [place] [address] Rosa Houston S, OD [address] [facility] [address] [place] [address] 05/31/2025 9:20 AM EDT Office Visit [facility] [address] [place] [address] Neena Fields, MANAGER AEROSPACE [address] [place] [address] documented as of this encounter Visit Diagnoses Diagnosis Vitamin D deficiency documented in this encounter Additional Health Concerns Assessment Noted Time A fall risk assessment has been complete d for the patient 2023 10:33 AM EST A Body Mass Index follow-up plan has been documented for the patient 2023 12:25 PM EST documented as of this encounter Care Teams Sql Architect Relationship Specialty Start Date End Date Alfredo Aguiar MD [address] [facility] [address] [place] [address] PCP - General 12/14/20 documented as of this encounter
--- OUTSIDE RECORDS SUMMARY | 2025-04-18 11:59 | XMS_ITS | Encounter Summary ---
Author Organization [facility] Address [address] [place] [address] Care Team Providers Care Marketing Research Intern Name Role Phone Alfredo Aguiar MD Primary Care Provider [phone] Reason for Visit * Reason Comments Med Refill Encounter Details Date Type Department Care Team (Late st Contact Info) Description 04/10/2025 Refill [facility] End[facility]ology [address] [place] [address] Neena Fields C, REFRACTORY FURNACE DESIGNER [address] [facility] [address] [place] [address] Social History Tobacco Use Types Packs/Day Years [...] as of this encounter Miscellaneous Notes * Telephone Encounter - Teodoro Crenshaw, PharmD - 04/10/2025 1:57 PM EDT 1 medication(s) has been approved per protocol. documented in this encounter Plan of Treatment Upcoming Encounters Date Type Department Care Team (Late st Contact Info) Description 04/24/2025 8:45 AM EDT Office Visit [facility] [address] [place] [address] Rosa Houston S, OD [address] [place] [address] 05/31/2025 9:20 AM EDT [facility] [address] [place] [address] Neena Fields, REFRACTORY FURNACE DESIGNER [address] [place] [address] documented as of this encounter Visit Diagnoses Not on filedocumented in this encounter Additional Health Concerns Assessment Noted Time A fall risk assessment has been complete d for the patient 02/01/2025 12:40 PM EDT A Body Mass Index follow-up plan has been documented for the patient 02/01/2025 1:21 PM EDT documented as of this encounter Care Teams Marketing Research Intern Relationship Specialty Start Date End Date Alfredo Aguiar MD [address] [place] [address] PCP - General 12/14/20 documented as of this encounter
--- OUTSIDE RECORDS SUMMARY | 2025-04-18 11:59 | XMS_ITS | Clinical Summary ---
Author Organization [facility] Address [address] [place] [address] Care Team Providers Care Associate Professor Of Radiology Name Role Phone Alfredo Aguiar MD Primary Care Provider [phone] Allergies No known active allergies Medications rosuvastatin (Crestor) 20 MG tablet every day. 12/27/19 21 Active lisinopril 5 MG tablet Take 0.5 tablets (2.5 mg) by mouth 1 (one) time each day. Active aspirin 81 MG EC tablet Take 1 tablet (81 mg) by mouth 1 (one) time each day. Active Viibryd 40 MG tablet every day. 01/03/20 21 Active omeprazole (PriLOSEC) [address] capsule BID. 02/23/20 21 Active Tiotropium [place] Monohydrate (SPIRIVA RESPIMAT IN) 2 puffs every [...] mouth 1 (one) time each day. Active Methylcobalamin 1000 MCG sublingual tablet 1 (one) time each day. 03/05/20 23 Active ergocalciferol 1.25 MG (89091 UT) capsuleIndicati ons:Vitamin D deficiency Take 1 capsule (50,000 Units) by mouth 1 (one) time per week. 8 capsule 08/24/19 24 Active [facility] G[employer] [employer] [facility]ILDREN PO Take by mouth. Activ e Spiriva Respimat 2.5 MCG/ACT inhaler 03/17/20 24 Active chlorhexidine (Peridex) 0.12 % solution FILL SUPPLIED CUP (ONE-HALF OUNCE); SWISH IN MOUTH FOR 30 SECONDS TWICE DAILY (AFTER toothbrushing) . SWISH THEN EXPEL REMAINDER OR USE DIRECTED 06/09/20 24 Active HYDROcodone-shelbie taminophen ([place]) 5-325 MG tablet TAKE ONE TABLET BY MOUTH EVERY 6 HOURS NEEDED FOR PAIN MAY CAUSE DROWSINESS 05/19/20 24 Active insulin aspart (NovoLOG FLEXPEN) 100 UNIT/ML injection pen INJECT 10 UNITS UNDER THE SKIN THREE TIMES A DAY BEFORE MEALS PLUS CORRECTION 1:40 GREATER THAN 150, MAXIMUM DAILY DOSE OF 60 UNITS 60 mL 10/06/19 25 Active insulin glargine (Lantus SoloStar, Basaglar) 100 UNIT/ML injection pen Inject 24 Units under the skin every morning. 30 mL 3 02/02/20 25 026 Active Jardiance 10 MG TAKE 1 TABLET DAILY 90 tablet 04/10/20 25 Active empagliflozin (Jardiance) 10 MG Take 1 tablet (10 mg) by mouth 1 (one) time each day. 90 tablet 3 03/22/20 24 025 Discontinued Active Problems Problem Noted Date Diagnosed Date Class 1 obesity with serious comorbidity and body mass index (BMI) of 30.0 to 30.9 in adult 02/26/2022 Essential hypertension 12/05/2014 Type 2 diabetes mellitus wit h hyperglycemia, with long-term current use of insulin 01/31/2014 Hyperlipidemia 02/08/2013 Encounters Date Type Department Care Team Description 04/10/2025 Refill [facility] [address] [address] Neena Fields APRN 02/01/2025 12:20 PM EDT Office Visit [facility] [place] [address] [place] [address] Neena Fields, CRANKSHAFT BALANCER Type 2 diabetes mellitus with hyperglycemia, with long-term current use of insulin ([facility]) (Primary Dx) 02/01/2025 Travel 01/27/2025 11:40 AM EDT Office Visit [facility] [address] [place] [address] Lizzie Farmer APRN Stage 3b chronic kidney disease ([facility]) (Primary Dx); Essential hypertension; Vitamin D deficiency; Type 2 diabetes mellitus with hyperglycemia, with long-term current use of insulin ([facility]); Chronic kidney disease-mineral and bone disorder; Age-related osteoporosis without current pathological fracture 01/27/2025 Travel from Last 3 Months Immunizations Immunization Administration Dates Next Due Hep [...] Sign Reading Time Taken Comments Blood Pressure 116/64 02/01/2025 12:19 PM EDT Pulse 62 02/01/2025 12:19 PM EDT Temperature 36.3 C (97.3 F) 08/26/2024 8:47 AM EST Respiratory Rate 18 01/27/2025 12:04 PM EDT Oxygen Saturation 94% 01/27/2025 12:04 PM EDT Inhaled Oxygen Concentration - - Weight 115 kg (252 lb 10.4 oz) 02/01/2025 12:19 PM EDT Height 185.4 cm (6' 1 ) 02/01/2025 12:19 PM EDT Body Mass Index 33.33 02/01/2025 12:19 PM EDT Plan of Treatment Upcoming Encounters Date Type Department Care Team (Late st Contact Info) Description 04/24/2025 8:45 AM EDT Office Visit [facility] [address] [place] [address] Rosa Houston S, OD [address] [place] [address] 05/31/2025 9:20 AM EDT Office Visit [facility] [address] [place] [address] Neena Fields, CRANKSHAFT BALANCER [address] [place] [address] Health Maintenance Due Date Last Done Comments [facility]-Bone Density Scan 1938 [facility]-Depression Screening 1938 [facility]-Medicare Annual Wellness (AWV) 1938 [facility]-/Child/Adol SDOH Screenings 1938 Diabetes: Dental Exam 1948 [facility]- SDOH Screenings 1956 [facility]-Adult SDOH Screenings 1956 [facility]-Pneumococcal Vaccine: 50+ Years (1 of 2 - PCV) 1957 [id number] Vaccine (7 - Moderna risk season) 2025 04/25/2024, 05/14/2022, 01/07/2022, Additional history exists [facility]-Influenza Vaccine (#1) 04/03/202503/28, 04/28/2022, 04/28/2022, Additional history exists [facility]-Diabetes: Hemoglobin A1C 05/03/2025 02/01/2025, 02/01/2025, 10/12/2024, Additional history exists [facility]-DTaP,Tdap,and Td Vaccines (2 - Td or Tdap) 12/07/2031 12/06/2021 [facility]-Hepatitis A Vaccines Aged Out 07/22/2018 No longer eligible based on patient's age to complete this topic [facility]-Zoster Vaccines Completed 11/09/2018, 8 [facility]-RSV Vaccine: 60+ Years or Completed 05/04/2023 [facility]-Obesity Intervention Completed 025, 01/27/2025, 10/12/2024, Additional history exists HPV Vaccines Aged Out [...] Comments POCT GLYCOSYLATED HEMOGLOBIN (HGB A1C) Routine 02/01/2025 1:28 PM EDT Type 2 diabetes mellitus with hyperglycemia, with long-term current use of insulin ([facility]) POCT GLYCOSYLATED HEMOGLOBIN (HGB A1C) Routine 02/01/2025 12:38 PM EDT Type 2 diabetes mellitus with hyperglycemia, with long-term current use of insulin ([facility]) from Last 3 Months Results * (ABNORMAL) POCT glycosylated hemoglobin (Hb A1C) (02/01/2025 1:28 PM EDT) Only the most recent of2 resultswithin the time period is included. POCT Hemoglobin A1C 8.4% <5.7% Non-Diabet ic % [employer] [facility] Kit Lot Number [id number]) [facility] Kit Expiration Date 2025 [facility] Blood Venous blood specimen / Unknown 02/01/2025 1:28 PM EDT Neena Fields CRANKSHAFT BALANCER POINT OF CARE TEST ENTER/KATIE T ORDERABLES Final Result Performing Organization Address City/State/[facility] Co de Phone Number HEALTHCARE LAB [address] [place] [address] from Last 3 Months Insurance MEDICARE [facility] Advance Directives Documents on File Type Date Recorded Patient Freight Car Inspector Expl anation Advance Directives and Living Will 10/24/2022 Living Will and Surrogate Care Teams Associate Professor Of Radiology Relationship Specialty Start Date End Date Alfredo Aguiar MD [address] [place] [address] PCP - General 12/14/20
[2025-04-18 13:00] LABS: Hematocrit 46.1 % (42.0-52.0); Hemoglobin 14.8 g/dL (14.1-18.0); Immature Granulocytes % 0.6 %; Mean Corpuscular HGB Conc 32.1 g/dL (31.8-35.4); Mean Corpuscular Hemoglobin 29.5 pg (27.0-31.2); Mean Corpuscular Volume 92.0 fl (80-94); Nucleated Red Blood Cells % 0 %; Platelet Count 259 K/mm3 (142-424); Red Blood Count 5.01 M/mm3 (4.60-6.20); Red Cell Distribution Width-SD 47.3 fL; White Blood Count 6.9 K/mm3 (4.8-10.8)
[2025-04-18 13:37] LABS: Alanine Aminotransferase 24 U/L (12-78); Albumin Level 4.0 g/dl (3.5-5.0); Alkaline Phosphatase 78 U/L (38-126); Anion Gap 12.5 mEq/L (5-15); Aspartate Amino Transferase 26 U/L (17-59); Bilirubin,Direct 0.0 mg/dl (0.0-0.4); Bilirubin,Indirect 0.5 mg/dL (0.0-0.9); Bilirubin,Total 0.5 mg/dl (0.2-1.3); Bilirubin,Unconjugated 0.5 mg/dL (0.0-1.1); Blood Urea Nitrogen 26 mg/dl (9-20); Calcium 8.6 mg/dl (8.4-10.2); Carbon Dioxide 28 mmol/L (22.0-30.0); Chloride 102 mmol/L (98-107); Cholesterol 132 mg/dl (140-200); Creatinine,Serum 2.00 mg/dl (0.66-1.25); Estimated Glomerular Filt Rate 32 ml/min (>60); GFR (African American) 39 ML/MIN (>60); Glucose 183 mg/dl (74-100); HDL Cholesterol 28 mg/dl (40-60); Magnesium 2.0 mg/dl (1.6-2.3); Potassium 4.5 mmoL/L (3.5-5.1); Sodium 138 mmol/L (136-145); Total Protein,Serum 6.6 g/dl (6.3-8.2); Triglycerides 192 mg/dl (30-150)
[2025-04-18 13:53] LABS: Free T4 (Free Thyroxine) 1.16 ng/dl (0.78-2.19)
[2025-04-18 14:08] LABS: Thyroid Stimulating Hormone 2.53 uIU/mL (0.465-4.68)
== END 2025-04-18 23:59 | disposition home or self-care (01) ==
LOC: LAB 11:56
PROVIDERS: PCP Internal Medicine Adolescent Medicine; Visit Provider Internal Medicine
DX: I25.10 Atherosclerotic heart disease of native coronary artery without angina pectoris (principal); I10 Essential (primary) hypertension
CPT/HCPCS: 80048; 80061; 80076; 83735; 84439; 84443; 85025

== ENCOUNTER 2025-05-08 14:03 | Outpatient (CLI) | payer MEDICARE, OTHER, SELFPAY ==
--- OUTSIDE RECORDS SUMMARY | 2025-04-24 08:45 | XMS_ITS | Encounter Summary ---
Author Organization [facility] Address [address] [place] [address] Care Team Providers Care Live Source Operator Name Role Phone Alfredo Aguiar MD Primary Care Provider + [phone] Reason for Visit * Reason Comments low vision * Consultation (Routine) - Closed Specialty Diagnoses / Procedures Referred By Amanda estevez Referred To Contact Ophthalmology Diagnoses Low vision Ashley Saldana MD [address] [place] [address] Phone: tel: fax: [facility] [address] [place] [address] Phone: tel: fax: Referral ID Status Reason Start Date Expiration Date V isits Requested Visits Authorized [id number] Closed Specialty Services Required 10/28/2024 04/29/2026 1 1 Encounter Details Date Type Department Care Team (Late st Contact Info) Description 04/24/2025 8:45 AM EDT Office Visit [facility] [address] [place] [address] oRsa Houston S, OD [address] [place] [address] Type 2 diabetes mellitus with hyperglycemia, with long-term current use of insulin ([facility]/HCC) (Primary Dx); Myopia of both eyes; Presbyopia Social History Tobacco Use Types Packs/Day Years [...] as of this encounter Miscellaneous Notes * Patient Instructions - Rosa Houston, OD - 04/24/2025 8:45 AM EDT Low Vision Device List Based on the results of your low vision exam, the following device(s) may be helpful to you: EasyPocket 3x pocket magnifier - $90.00 Smartlux 3-15x electronic magnifier - $713.00 MaxDetail Clip - $181.00 Kevin - Fabricio Jaramillo online If you have questions about the devices or if you are interested in purchasing them, please reach out to the [employer] [facility] at [facility] at [phone]. You may order over the phone and the device will be shipped directly to you from the weaver [place]. All devices we demonstrate are produced by [employer] unless otherwise noted. [facility] of the Blind, Inc. The [facility] of the Blind (B) is the only nonprofit exclusively serving the needs of adults who are blind or visually impaired in [facility]. [facility] services are free of charge to clients and available to any clients affected by vision loss, including family, friends and professionals working with people with low to no vision. Our primary service area includes [place] and surrounding [facility], including [facility] and [place], however, due to a lack of available services in other [facility], we do provide information and services to persons in other [facility], upon request and as we have resources available. Our mission: To increase independence, security and quality of life for [facility] affected by vision loss through peer support, technology, training and additional resources. We do this through our two main programs: Peer Support and Assistive Technology and Training. Some of the services provided through these two programs include: support group meetings peer group mentoring demonstrations and hands-on trials of technology items and devices group and individual training on assistive technology such as accessibility features on smart phones and tablets educational seminars community outings a technology lending / distribution program Our programs are available to any person residing in [place], regardless of socio-economic status, race, ethnicity, gender, sexual orientation, age, adventist, physical abilityor language. [facility] also publishes the BCB Bulletin, a bi-monthly newsletter offered in email, large print, and audio versions. Our mailing list is a great way to stay informed of the various activities of [facility], pending legislation and/or public policy affecting the blind and visually impaired as well as other items of interest and activities within the community. CONTACT US Mailing Address: [facility] Blind [address] [place] [address] General Email: [email or web address] Blind Services Division The mission of the [place] Office of Vocational Rehabilitation / Blind Services Division is to provide opportunities for employment and independence to individuals with visual disabilities. We serveBaptist Health Paducahians who are visually impaired or blind and assist individuals in obtaining and maintaining e mployment, economic self-sufficiency and independence. Our goal is to provide myriad resources and high quality services that are geared to enhance the lives of [facility] with visual disabilities. Our programs and services provide individuals with visual disabilities the tools they need to become more independent in their homes, schools, workplaces and communities. These programs include: [facility] (training in low vision and blindness skills), Independent Living and Older Blind Program, Orientation and Mobility Services, Deaf Blind Program, and Bioptic Driving Program. Services are consistent with an individual's strengths, abilities and interests. We are committed to helping business partners find highly qualified job seekers, and provide a variety of resources and support to both the employers and the employees. The Blind Services Division provides statewide services to all [address] [place] [address]. Our administrative operations are located in our central office in [place]. There are 10 field offices located throughout [place] in [facility], [place], [place], [place], [place], [facility] and [place]. Need more help? Contact [facility] Office of Vocational Rehabilitation Central Office [address]th [place] [address] [phone] (V/TTY) * Progress Notes - Rosa Houston, OD - 04/24/2025 8:45 AM EDT Subjective Patient ID: Eric Vázquez is a 84 y.o. male. Chief Complaint low vision HPI Patient is a 84 y.o. male who identifies as male and is here as a consultation from Ashley López MD for a low vision assessment. He has been having trouble with his near vision since he has his cataract extraction (CE)/intraocular lens (IOL) Sx about 2 years ago. He had a YAG procedure both e yes (OU) about 2 months ago. Patient states that he needs more light than he used to for reading. He opted for distance lenses, which he thinks may have been a mistake as he reads a lot. 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 His BSLS has been more stable in recent months (usually around 175-225) with a goal of 150. Patient has no further complaints or questions. Last edited by Rosa Houston, OD on 04/24/2025 9:41 AM. No current outpatient medications on file. (Ophthalmic Drugs) No current facility-administered medications for this visit. (Ophthalmic Drugs) Current Outpatient Medications (Other) Medication Sig bisoprolol (Zebeta) 5 MG tablet Take 0.5 tablets (2.5 mg) by mouth 1 (one) time each day. chlorhexidine (Peridex) 0.12 % solution FILL SUPPLIED CUP (ONE-HALF OUNCE); SWISH IN MOUTH FOR 30 SECONDS TWICE DAILY (AFTER toothbrushing). SWISH THEN EXPEL REMAINDER OR USE DIRECTED clopidogrel (Plavix) 75 MG tablet [facility] [employer] [facility] PO Take by mouth. cyanocobalamin 100 MCG tablet Take 1 tablet (100 mcg) by mouth 1 (one) time each day. ergocalciferol 1.25 MG (75177 UT) capsule Take 1 capsule (50,000 Units) by mouth 1 (one) time per week. fluticasone (Flonase) 50 MCG/ACT nasal spray Administer 1 spray into each nostril daily. Shake gently. Before first use, prime pump. After use, clean tip and replace cap. HYDROcodone-acetaminophen (Conway) 5-325 MG tablet TAKE ONE TABLET BY MOUTH EVERY 6 HOURS NEEDED FOR PAIN MAY CAUSE DROWSINESS insulin aspart (NovoLOG FLEXPEN) 100 UNIT/ML injection pen INJECT 10 UNITS UNDER THE SKIN THREE TIMES A DAY BEFORE MEALS PLUS CORRECTION 1:40 GREATER THAN 150, MAXIMUM DAILY DOSE OF 60 UNITS insulin glargine (Lantus SoloStar, Basaglar) 100 UNIT/ML injection pen Inject 24 Units under the skin every morning. insulin pen needle (B-D ULTRAFINE III SHORT PEN) 31G X 8 mm misc Use 4 per day to inject insulin Jardiance 10 MG TAKE 1 TABLET DAILY lisinopril 5 MG tablet Take 0.5 tablets (2.5 mg) by mouth 1 (one) time each day. Methylcobalamin 1000 MCG sublingual tablet 1 (one) time each day. Multiple Vitamins-Minerals (RA VISION-RENARD PRESERVE PO) Take by mouth. 2 tablets bid omeprazole (PriLOSEC) [address] capsule BID. pantoprazole (ProtoNix) 20 MG EC tablet rosuvastatin (Crestor) 20 MG tablet every day. Spiriva Respimat 2.5 MCG/ACT inhaler Tiotropium [place] Monohydrate (SPIRIVA RESPIMAT IN) 2 puffs every day. triamcinolone (Kenalog) 0.1 % ointment Viibryd 40 MG tablet every day. aspirin 81 MG EC tablet Take 1 tablet (81 mg) by mouth 1 (one) time each day. (Patient not taking: Reported on 04/24/2025) No current facility-administered medications for this visit. (Other) Objective Base Eye Exam Visual Acuity (Snellen - Linear) Right Left Dist sc 20/30 +1 20/25 -2 Dist ph sc NI NI Near cc J1 OU Pupils Pupils Right PERRL Left PERRL Visual Brooks (Counting fingers) Right Left Full Full Extraocular Movement Right Left Full Full Neuro/Psych Oriented x3: Yes Refraction Wearing Rx Sphere Right +1.50 Left +1.50 Type: OTC Readers Manifest Refraction (Auto) Sphere Cylinder Earle Dist VA Add Right -1.75 +0.25 030 Left -0.50 Manifest Refraction #2 Sphere Cylinder Earle Dist VA Add Right -0.50 Sphere 20/25 +2.50 Left -0.50 Sphere 20/25+2 +2.50 Dist VA Both: 20/20- Final Rx Sphere Cylinder Dist VA Right +2.00 Sphere 20/25 Left +2.00 Sphere 20/25+2 Type: SVL Reading Expiration Date: 04/24/2026 Comments: Anti-reflective, Anti-scratch Assessment/Plan Assessment & Plan Type 2 diabetes mellitus with hyperglycemia, with long-term current use of insulin ([facility]) Myopia of both eyes Presbyopia Device Evaluation EasyPocket 3x pocket magnifier - appreciates portability, ease of use Smartlux 3-15x electronic magnifier - appreciates high mag, color/contrast settings MaxDetail Glasses - not helpful MaxDetail Clip - appreciates hands-free option, prefers to glasses Mariana-Lite - would appreciate high quality lighting with color/temperature controls Filter Evaluation Not performed. Plan Based on findings in today's low vision examination, Eric Vázquez will most likely benefit from EasyPocket 3x pocket magnifier, Smartlux 5-12x electronic magnifier, and MaxDetail clip. Released spectacle prescription today in the form of single-vision near. Would likely fare better with Rx readers vs OTC at this time. Gave information on [facility] for additional assistive technology resources as well as peer support groups for patients and families living with vision impairment. Discussed resources provided by [facility], including home evaluations, independent living skills training, orientation and mobility training, and vocational rehabilitation services. Referral was not placed for home evaluation and independent living skills training per patient request. Return to low vision clinic as needed. Continue all follow-up care as recommended by primary eye care provider. Total provider time on the date of this encounter totaled 40 minutes and included patient history review, performing examination, counseling and educating patient and family, ordering medications andtests, communicating with other health child care attendant, coordinating follow up care, and documenting clinical information in the electronic health record. The time allotted for refraction, if performed, was excluded from the time indicated above. Tobacco Use: Low Risk (04/24/2025) Patient History Smoking Tobacco Use: Never Smokeless Tobacco Use: Never Passive Exposure: Not on file The patient has been counseled on tobacco cessation: Not Applicable Follow up if symptoms worsen or fail to improve, for Low Vision Exam. documented in this encounter Plan of Treatment Upcoming Encounters Date Type Department Care Team (Late st Contact Info) Description 05/31/2025 9:20 AM EDT [facility] [address] [place] [address] Neena Fields, CORPORATE TECHNICAL RECRUITER [address] [facility] [address] [place] [address] documented as of this encounter Visit Diagnoses Diagnosis Type 2 diabetes mellitus with hyperglycemia, with long-term current use of insulin- Primary Myopia of both eyes Presbyopia documented in this encounter Additional Health Concerns Assessment Noted Time A fall risk assessment has been complete d for the patient 02/01/2025 12:40 PM EDT A Body Mass Index follow-up plan has been documented for the patient 04/24/2025 10:22 AM EDT documented as of this encounter Care Teams Live Source Operator Relationship Specialty Start Date End Date Alfredo Aguiar MD [address] [place] [address] PCP - General 12/14/20 documented as of this encounter
--- OUTSIDE RECORDS SUMMARY | 2025-05-08 14:08 | XMS_ITS | Encounter Summary ---
Author Organization [facility] ([place], [place], [place], [place]) Address [address] [place] [address] Care Team Providers Care Oil And Gas Exploration Technician Name Role Phone Alfredo Aguiar MD Primary Care Provider + [phone] Alfredo Aguiar MD Primary Care Provider + [phone] Encounter Details Date Type Department Care Team (Late st Contact Info) Description 05/20/2019 Transcribed Document [facility] [place] [facility] [place] [address] ProviderEryn MD [address] [place] [address] Social History Tobacco Use Types Packs/Day Years Used Date Smoking Tobacco: Never Assessed Sex and Gender Information Value Date Recorded Sex Assigned at Not on file Legal Sex Male 5:45 PM CDT Gender Identity Not on file Sexual Orientation Not on file documented as of this encounter Miscellaneous Notes * Cerner Conversion Note - Eryn Arcos MD - 05/20/2019 1:15 PM CDT [facility] Main OR Preop Summary Primary Physician: LION DAVIS MD-ORT Finalized Date/Time: 05/20/19 14:16:08 Pt. Name: LORA JAIN JR/Sex: 1940 Male Med Rec #: [id number] Physician: LION DAVIS MD-ORT Financial #: [id number] Pt. Type: I Room/Bed: ASA/2 Admit/Disch: 05/20/19 06:54:00 - Institution: [facility] PreOp Case Times Entry 1 In Preop 05/20/19 10:10:00 Ready for Holding n/a Room Patient Ready for 05/20/19 11:35:00 Surgery Patient Out of Preop 05/20/19 13:41:00 Patient Out of n/a Holding Room Last Modified By: EVAN Drake RN 05/20/19 14:16:06 [facility] PreOp Case Times Audit 05/20/19 14:16:06 Wastewater Engineer: REISNERK Modifier: WILSONDL <+> 1 Patient Out of Preop 05/20/19 11:35:30 Wastewater Engineer: REISNERK Modifier: REISNERK <+> 1 Patient Ready for Surgery Finalized By: EVAN Drake, RN Document Signatures Signed By: EVAN Drake RN 05/20/19 14:16 Electronically signed by [place] [facility] Conversion Soil Surveyor Cerner at 11/18/2022 9:37 AM CDT documented in this encounter Plan of Treatment Not on file documented as of this encounter Visit Diagnoses Not on filedocumented in this encounter Care Teams Oil And Gas Exploration Technician Relationship Specialty Start Date End Date Alfredo Aguiar MD [address] [place] [address] [place] [address] PCP - General Adolescent Medicine 10/16/22 10/19/22 Alfredo Aguiar MD [address] [place] [address] [place] [address] PCP - General Adolescent Medicine 10/20/22 documented as of this encounter
--- OUTSIDE RECORDS SUMMARY | 2025-05-08 14:08 | XMS_ITS | Encounter Summary ---
Author Organization [employer] ([place], [place], [place], [place]) Address [address] [place] [address] Care Team Providers Care Enrollment Clerk Name Role Phone Alfredo Aguiar MD Primary Care Provider + [phone] Alfredo Aguiar MD Primary Care Provider + [phone] Encounter Details Date Type Department Care Team (Late st Contact Info) Description 05/23/[address] [facility] [place] [facility] [address] ProviderEryn MD [address] [place] [address] Social History Tobacco Use Types Packs/Day Years [...] On: 05/23/2019 13:16 EDT by JUANY HERNANDEZ RN-Title I DirectorOperations Analyst Progress Note Discharge Arrangements : Patient Post-Acute Information Patient Name: LORA VÁZQUEZ JR Gender: Male : [birth year] Age: 78 Years Justin Referral(s): Service: Organization: Business Address: Phone Number: Nursing Home Facility [facility] [address] [place], [address] Discharge Options Discussed with Patient : Short term rehabilitation Barriers to Discharge Unresolved : All resolved Designation of Choice Signed : Yes Patient Offered Choice/Affiliations Explained : Yes List/Info Provided Pt/Fam/Support Person : jail facilities Were Referrals Sent to Post Acute Providers : Yes JUANY HERNANDEZ, RN-Title I Director - 05/23/2019 13:16 EDT Electronically signed by [place], [facility] Conversion Clarity Developer Cerner at 11/18/2022 9:37 AM CDT documented in this encounter Plan of Treatment Not on file documented as of this encounter Visit Diagnoses Not on filedocumented in this encounter Care Teams Enrollment Clerk Relationship Specialty Start Date End Date Alfredo Aguiar MD [address] [place] [address] PCP - General Adolescent Medicine 10/16/22 10/19/22 Alfredo Aguiar MD [address] [place] [address] PCP - General Adolescent Medicine 10/20/22 documented as of this encounter
--- OUTSIDE RECORDS SUMMARY | 2025-05-08 14:08 | XMS_ITS | Clinical Summary ---
Author Organization [employer] ([place], [place], [place], [place]) Address [address] [place] [address] Care Team Providers Care Commanding Officer Homicide Squad Name Role Phone Alfredo Aguiar MD Primary Care Provider [phone] Allergies No known active allergies Medications lisinopriL [...] Years Used Date Smoking Tobacco: Never Assessed Food Insecurity Answer Date Recorded Food run [...] Date Devin rded Speak language other than Citizen [place] at home Not on file 08/21/2023 Want help with school or training Not on file 08/21/2023 Substance Use Answer Date Recorded Used [...] Last Done Comments Medicare Initial AWV G0438 Diabetic Eye Exam 1948 Depression Screening (12+) 1950 Tobacco Cessation Counseling and Screening (12+) 1950 Pneumococcal 50+ years (1 of 2 - PCV) 1957 Respiratory Syncytial Virus (RSV) Adult or (1 - 1-dose 75+ series) 2013 Falls Risk Screening 08/03/2024 COVID-19 VACCINE (6 - 2024-2 6 season) 2025 05/14/2022, 05/14/2022, 01/07/2022, Additional history exists Influenza Vaccine (#1) 2025 2, 04/28/2022, 03/21/2021, Additional history exists DTAP/TDAP/TD VACCINES (2 - T d or Tdap) 12/07/2031 12/06/2021 Shingles Vaccine (Zoster) Completed 11/09/2018, Insurance [place] [id number] MEDICARE PART A B [employer] Advance Directives For more information, please contact: [phone] * Full Code (Latest Code Status on File) Date Activated Date Inactivated Comments 10/15/2022 10:17 PM 10/16/2022 7:32 PM Care Teams Commanding Officer Homicide Squad Relationship Specialty Start Date End Date Alfredo Aguiar MD [address] [place] [address] PCP - General Adolescent Medicine 10/20/22
--- OUTSIDE RECORDS SUMMARY | 2025-05-08 14:08 | XMS_ITS | Encounter Summary ---
Author Organization [employer] ([place], [place], [place], [place]) Address [address] [place] [address] Care Team Providers Care Floorperson Name Role Phone Alfredo Aguiar MD Primary Care Provider + [phone] Alfredo Aguiar MD Primary Care Provider + [phone] Encounter Details Date Type Department Care Team (Late st Contact Info) Description 08/17/2019 Transcribed Document [facility] [place] [facility] [place] [address] ProviderEryn MD [address] [place] [address] Social History Tobacco Use Types Packs/Day Years Used Date Smoking Tobacco: Never Assessed Sex and Gender Information Value Date Recorded Sex Assigned at Not on file Legal Sex Male 5:45 PM CDT Gender Identity Not on file Sexual Orientation Not on file documented as of this encounter Miscellaneous Notes * Cerner Conversion Note - Eryn ProviderMD - 08/17/2019 6:35 PM END WORKER Evaluation, Occupational Therapy Entered On: 08/18/2019 13:18 [...] prevention measures General Information Comment, OT : L TKA Jere Viramontes STUDENT-OCCUPATIONAL THERAPIST - 08/18/2019 [...] : WFL Left UE Strength : WFL Viramontes, Jere E, STUDENT-OCCUPATIONAL THERAPIST - 08/18/2019 13:11 EST Self [...] Viramontes STUDENT-OCCUPATIONAL THERAPIST - 08/18/2019 13:11 EST Team Psychologist Goals, OT Grooming LTG Grid Goal #1 [...] SBA supine to sit EOB using leg outsole caser. Pt required Mod A x2 sit to [...] YEIMI WALKER OTR/L - 08/18/2019 13:33 EST [place] OT Charges OT Ther Activities Ea 15 Min : 1 OT Eval Low Complexity : 1 Jere Viramontes STUDENT-OCCUPATIONAL THERAPIST - 08/18/2019 13:11 EST Electronically signed by Wellington [facility] Conversion Special Procedure Technologist Cerner at 11/18/2022 9:30 AM CDT documented in this encounter Plan of Treatment Not on file documented as of this encounter Visit Diagnoses Not on filedocumented in this encounter Care Teams Floorperson Relationship Specialty Start Date End Date Alfredo Aguiar MD [address] [place] [address] PCP - General Adolescent Medicine 10/16/22 10/19/22 Alfredo Aguiar MD [address] [place] [address] PCP - General Adolescent Medicine 10/20/22 documented as of this encounter
--- OUTSIDE RECORDS SUMMARY | 2025-05-08 14:08 | XMS_ITS | Encounter Summary ---
Author Organization [facility] Address [address] [place] [address] Care Team Providers Care Composite Engineer Name Role Phone Alfredo Aguiar MD Primary Care Provider [phone] Encounter Details Date Type Department Care Team (Latest Contact Info) Description 04/24/2025 Travel Social History Tobacco Use Types Packs/Day Years [...] 9:20 AM EDT Office Visit [facility] Endocrinology [address] [place] [phone] Neena Fields, CLINICAL ACADEMIC ALLERGIST [address] [facility] [address] [place] [phone] documented as of this encounter Visit Diagnoses Not on filedocumented in this encounter Additional Health Concerns Assessment Noted Time A fall risk assessment has been complete d for the patient 02/01/2025 12:40 PM EDT A Body Mass Index follow-up plan has been documented for the patient 04/24/2025 10:22 AM EDT documented as of this encounter Care Teams Composite Engineer Relationship Specialty Start Date End Date Alfredo Aguiar MD [address] [place] [address] PCP - General 12/14/20 documented as of this encounter
--- OUTSIDE RECORDS SUMMARY | 2025-05-08 14:08 | XMS_ITS | Encounter Summary ---
Author Organization [employer] ([place], [place], [place], [place]) Address [address] [place] [address] Care Team Providers Care Hat Parts Cutter Machine Name Role Phone Alfredo Aguiar MD Primary Care Provider + [phone] Alfredo Aguiar MD Primary Care Provider + [phone] Encounter Details Date Type Department Care Team (Late st Contact Info) Description 05/18/2019 Transcribed Document [facility] [place] [facility] [place] [address] ProviderEryn MD [address] [place] [address] Social History Tobacco Use Types Packs/Day Years [...] Feelings expressed, Relationship strengths identified Spiritual and Confucianism : Prayer shared, Spiritual/Confucianism support provided TREVOR FLORIAN 05/20/2019 12:36 EDT documented in this encounter Plan of Treatment Not on file documented as of this encounter Visit Diagnoses Not on filedocumented in this encounter Care Teams Hat Parts Cutter Machine Relationship Specialty Start Date End Date Alfredo Aguiar MD [address] [place] [address] PCP - General Adolescent Medicine 10/16/22 10/19/22 Alfredo Aguiar MD [address] [place] [address] PCP - General Adolescent Medicine 10/20/22 documented as of this encounter
--- OUTSIDE RECORDS SUMMARY | 2025-05-08 14:08 | XMS_ITS | Encounter Summary ---
Author Organization [employer] ([place], [place], [place], [place]) Address [address] [place] [address] Care Team Providers Care Brew House Supervisor Name Role Phone Alfredo Aguiar MD Primary Care Provider + [phone] Alfredo Aguiar MD Primary Care Provider + [phone] Encounter Details Date Type Department Care Team (Late st Contact Info) Description 08/18/2019 Transcribed Document [facility] [place] [facility] [place] [address] ProviderEryn MD [address] [place] [address] Social History Tobacco Use Types Packs/Day Years Used Date Smoking Tobacco: Never Assessed Sex and Gender Information Value Date Recorded Sex Assigned at Not on file Legal Sex Male 5:45 PM CDT Gender Identity Not on file Sexual Orientation Not on file documented as of this encounter Miscellaneous Notes * [employer]ner Conversion Note - Eryn ProviderMD - 08/18/2019 2:18 PM INSURANCE AGENCY MANAGER Initial Discharge Planning Entered On: 08/18/2019 14:25 EST Performed On: 08/18/2019 14:18 EST by JUANY HERNANDEZ RN-Straightedge Machine Operator Helper Initial Assessment I Previously Documented Living Environment : No qualifying data available. Living Situation : Personal assisted Patient Lives With : Spouse, Other: caregivers Is the Patient a Caregiver at Home? : No Emergency Contact #1 : Raysa Escobar Emergency Contact #1 Emergency Contact #1 Relationship : daughter Emergency Contact #2 : Jessa Vázquez Emergency Contact #2 Emergency Contact #2 Relationship : daughter JUANY HERNANDEZ RN-Straightedge Machine Operator Helper - 08/18/2019 14:18 EST Initial Assessment II Sensory and Motor Deficits : None Current Home Treatments and Equipment : Walker JUANY HERNANDEZ RN-Straightedge Machine Operator Helper - 08/18/2019 14:18 EST Discharge Needs I Anticipated Discharge Date : 08/20/2019 EST Anticipated Discharge To, CM : halfway facility Current Home Treatment/Equipment : Current Home Treatment/Equipment No qualifying data available. Documentation Status Complete : Yes JUANY HERNANDEZ RN-Straightedge Machine Operator Helper - 08/18/2019 14:18 EST Discharge Needs II Professional Skilled Services : Professional Skilled Services No qualifying data available. Needs Assistance with Transportation : No Discharge Options Discussed with Patient : Short term rehabilitation JUANY HERNANDEZ RN-Straightedge Machine Operator Helper - 08/18/2019 14:18 EST Narrative Note Narrative Note : 78yo male pt s/p LTKA replant after explant spacer with LT IV abx for infection. Pt's original surgery was 04/2018 and pt went home with HH. Pt was admitted again for infected knee in 05/2019 and was dc'd to [facility] with IV abx. Since then, pt has been staying in a PC bed at [place] with [facility] for HH. Met with pt and daughters at bedside this am to discuss DCP. They request rehab at [place]. Referral sent via [facility] and spoke to liabraydon Epps. She can offer pt a bed. Pt wants to use [facility] for after rehab. Informed liabraydon Rosa, she will follow pt at facility. Family will transport. CM will follow. JUANY HERNANDEZ RN-Straightedge Machine Operator Helper - 08/18/2019 14:18 EST documented in this encounter Plan of Treatment Not on file documented as of this encounter Visit Diagnoses Not on filedocumented in this encounter Care Teams Brew House Supervisor Relationship Specialty Start Date End Date Alfredo Aguiar MD [address] [place] [address] PCP - General Adolescent Medicine 10/16/22 10/19/22 Alfredo Aguiar MD [address] [place] [address] PCP - General Adolescent Medicine 10/20/22 documented as of this encounter
--- OUTSIDE RECORDS SUMMARY | 2025-05-08 14:08 | XMS_ITS | Encounter Summary ---
Author Organization [employer] ([place], [place], [place], [place]) Address [address] [facility] [place] [address] Care Team Providers Care Carpenter Repair Name Role Phone Alfredo Aguiar MD Primary Care Provider + [phone] Alfredo Aguiar MD Primary Care Provider + [phone] Encounter Details Date Type Department Care Team (Late st Contact Info) Description 08/17/[address] [facility] [address] [place] [address] Lion Allison MD [address] [place] [address] Social History Tobacco Use Types Packs/Day Years [...] on filedocumented in this encounter Care Teams Carpenter Repair Relationship Specialty Start Date End Date Alfredo Aguiar MD [address] [place] [address] PCP - General Adolescent Medicine 10/16/22 10/19/22 Alfredo Aguiar MD [address] [place] [address] PCP - General Adolescent Medicine 10/20/22 documented as of this encounter
--- OUTSIDE RECORDS SUMMARY | 2025-05-08 14:08 | XMS_ITS | Encounter Summary ---
Author Organization [employer] ([place], [place], [place], [place]) Address [address] [facility] [facility] [place] [address] Care Team Providers Care Body Painter Name Role Phone Alfredo Aguiar MD Primary Care Provider + [phone] Alfredo Aguiar MD Primary Care Provider + [phone] Encounter Details Date Type Department Care Team (Late st Contact Info) Description 08/17/2019 Transcribed Document [facility] Radiology [address] [place] [address] Massimo Butterfield MD [address] [place] [address] Social History Tobacco Use Types Packs/Day Years [...] is an 78 yo male admitted to [facility] per Dr. 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 will use short acting insulin for correction. may add long-acting insulin for persistent hyperglycemia resume outpatient medication regimen for comorbidities Scribed by Renetta Solomon documented in this encounter Plan of Treatment Not on file documented as of this encounter Visit Diagnoses Not on filedocumented in this encounter Care Teams Body Painter Relationship Specialty Start Date End Date Alfredo Aguiar MD [address] [place] [address] PCP - General Adolescent Medicine 10/16/22 10/19/22 Alfredo Aguiar MD [address] [place] [address] PCP - General Adolescent Medicine 10/20/22 documented as of this encounter
--- OUTSIDE RECORDS SUMMARY | 2025-05-08 14:08 | XMS_ITS | Encounter Summary ---
Author Organization [employer] ([place], [place], [place], [place]) Address [address] [place] [address] Care Team Providers Care Backwinder Name Role Phone Alfredo Aguiar MD Primary Care Provider + [phone] Alfredo Aguiar MD Primary Care Provider + [phone] Encounter Details Date Type Department Care Team (Late st Contact Info) Description 08/17/2019 Transcribed Document [facility] [place] Family [place] [facility] [place] [address] ProviderEryn MD [address] [place] [address] Social History Tobacco Use Types Packs/Day Years Used Date Smoking Tobacco: Never Assessed Sex and Gender Information Value Date Recorded Sex Assigned at Not on file Legal Sex Male 5:45 PM CDT Gender Identity Not on file Sexual Orientation Not on file documented as of this encounter Miscellaneous Notes * Cerner Conversion Note - Eryn Arcos MD - 08/17/2019 1:00 PM HEAD LOFT WORKER [facility] Main OR Preop Summary Primary Physician: LION DAVIS MD-ORT Finalized Date/Time: 08/17/19 13:43:34 Pt. Name: LORA JAIN JR/Sex: 1940 Male Med Rec #: [id number] Physician: LION DAVIS MD-ORT Financial #: [id number] Pt. Type: I Room/Bed: ASA/3 Admit/Disch: 08/17/19 07:12:00 - Institution: [facility] PreOp Case Times Entry 1 In Preop 08/17/19 09:16:00 Ready for Holding n/a Room Patient Ready for 08/17/19 11:59:00 Surgery Patient Out of Preop 08/17/19 13:41:00 Patient Out of n/a Holding Room Last Modified By: CASIE BAE RN 08/17/19 13:43:32 [facility] PreOp Case Times Audit 08/17/19 13:43:32 C 40A Crew Chief: JOSEC Modifier: BOWLINC <+> 1 Patient Out of Preop 08/17/19 12:00:07 C 40A Crew Chief: LAUREEN Modifier: BOWLINC <+> 1 Patient Ready for Surgery Finalized By: CASIE BAE, RN Document Signatures Signed By: CASIE BAE RN 08/17/19 13:43 Electronically signed by Wellington [facility] Conversion Dumper Bailer Operator Cerner at 11/18/2022 9:41 AM CDT documented in this encounter Plan of Treatment Not on file documented as of this encounter Visit Diagnoses Not on filedocumented in this encounter Care Teams Backwinder Relationship Specialty Start Date End Date Alfredo Aguiar MD [address] [place] [address] PCP - General Adolescent Medicine 10/16/22 10/19/22 Alfredo Aguiar MD [address] [place] [address] PCP - General Adolescent Medicine 10/20/22 documented as of this encounter
--- OUTSIDE RECORDS SUMMARY | 2025-05-08 14:08 | XMS_ITS | Encounter Summary ---
Author Organization [employer] ([place], [place], [place], [place]) Address [address] [place] [address] Care Team Providers Care Advocacy Director Name Role Phone Alfredo Aguiar MD Primary Care Provider + [phone] Alfredo Aguiar MD Primary Care Provider + [phone] Encounter Details Date Type Department Care Team (Late st Contact Info) Description 08/04/2019 Transcribed Document [facility] [place] Family Medicine [facility] [place] [address] ProviderEryn MD [address] [place] [address] Social History Tobacco Use Types Packs/Day Years Used Date Smoking Tobacco: Never Assessed Sex and Gender Information Value Date Recorded Sex Assigned at Not on file Legal Sex Male 5:45 PM CDT Gender Identity Not on file Sexual Orientation Not on file documented as of this encounter Miscellaneous Notes * Cerner Conversion Note - Eryn ProviderMD - 08/04/2019 9:48 AM AEROSPACE PHYSIOLOGICAL TECHNICIAN PAT Adult Entered On: 08/04/2019 9:49 [...] Source : Measured Height Entry Format : Aspen Height, Feet : 0 ft(Converted to: 0 cm, 0 Inch) Height, Inches : 72 Inch(Converted to: 6 ft 0 Inch, 182.88 cm) Clinical Height : 182.88 cm Weight Source : Standing scale Weight Entry Format : Aspen Clinical Dosing Weight : 86.45 kg Weight, Pounds : 190.2 lb Body Surface Area (BSA) : 2.09 m2 Body Mass Index : 25.8 kg/m2 (HI) [place] Body Weight : 77 kg Marta Zurita RN - 08/04/2019 9:48 EST Health Histories Smoking Status : Never (less than 100 in lifetime; none in last 30 days) Smokeless Tobacco Status : Never Marta Zurita RN - 08/04/2019 10:20 EST Implant/Device Type, Telemarketing Sales Representative and Model : hernia clips< LEft knee spacer, EVAN Drake RN - 08/17/2019 10:51 EST Social History (As Of: 08/17/2019 10:53:12 EST) Tobacco: Never (less than 100 in lifetime) Smoking Status. Never Smokeless Tobacco Status. Second Hand Smoke Exposure: Yes. 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 Alcohol Use Frequency Rarely. (Last Updated: 03/24/2018 13:52:20 EDT by HERMAN LARSEN, RN) Substance Abuse: Drug Use Hx: No. [...] Region : No Tuberculosis Symptoms : None Marat Zurita RN - 08/04/2019 10:20 EST Anesthesia/Transfusion [...] Marta Zurita RN - 08/04/2019 10:31 EST [place] Suicide Severity Rating Scale (C-SSRS) CSSRS Past [...] EST Preferred Name : Mele Support Person/Patient Resort Manager : Yes Want Family/Rep/Phys Notified of Admit : No Emergency Contact #1 : Raysa Escobar Emergency Contact #1 Emergency Contact #1 Relationship : daughter Emergency Contact #2 : Jessa Vázquez Emergency Contact #2 Emergency Contact #2 Relationship : daughter Primary Language : Lao Preferred Communication Mode : Verbal Communication Barrier [...] - 08/04/2019 10:31 EST Electronically signed by Wellington [facility] Conversion Veterans Adviser Cerner at 11/18/2022 9:18 AM CDT documented in this encounter Plan of Treatment Not on file documented as of this encounter Visit Diagnoses Not on filedocumented in this encounter Care Teams Advocacy Director Relationship Specialty Start Date End Date Alfredo Aguiar MD [address] [place] [address] PCP - General Adolescent Medicine 10/16/22 10/19/22 Alfredo Aguiar MD [address] [place] [address] PCP - General Adolescent Medicine 10/20/22 documented as of this encounter
--- OUTSIDE RECORDS SUMMARY | 2025-05-08 14:08 | XMS_ITS | Encounter Summary ---
Author Organization [facility] ([place], [place], [place], [place]) Address [address] [place] [address] Care Team Providers Care Pot Puncher Name Role Phone Alfredo Aguiar MD Primary Care Provider + [phone] Alfredo Aguiar MD Primary Care Provider + [phone] Encounter Details Date Type Department Care Team (Late st Contact Info) Description 05/20/2019 Transcribed Document [facility] [place] Family Medicine [address] [place] [address] ProviderEryn MD [address] [place] [address] Social History Tobacco Use Types Packs/Day Years Used Date Smoking Tobacco: Never Assessed Sex and Gender Information Value Date Recorded Sex Assigned at Not on file Legal Sex Male 5:45 PM CDT Gender Identity Not on file Sexual Orientation Not on file documented as of this encounter Miscellaneous Notes * Cerner Conversion Note - Eryn Arcos MD - 05/20/2019 2:[address] [facility] Main OR IntraOp Summary Primary Physician: LION DAVIS MD-ORT Finalized Date/Time: 05/22/19 16:41:27 Pt. Name: LORA JAIN JR/Sex: 1940 Male Med Rec #: [id number] Physician: LION DAVIS MD-ORT Financial #: [id number] Pt. Type: I Room/Bed: [facility]/ Admit/Disch: 05/20/19 06:54:00 - Institution: [facility] IntraOp Case Attendance Entry 1 Entry 2 Entry 3 Case Attendee LION DAVIS TAYLOR, MELISSA A, RENETTA MAYS RN -ORT Role Performed Surgeon/Proceduralist, Life Consultant, First Life Consultant, Second First Time In 05/20/19 13:44:00 05/20/19 [...] HOFFMANN, SUZIE Oakes APRN, [place], DALE ALAN, MEDICAL SCIENTIST-ANS MD-ANS Role Performed Scrub, First MEDICAL SCIENTIST/Nurse Drug Safety Associate Anesthesiologist of Record Time In 05/20/19 13:44:00 [...] ELEUTERIO COLUNGA CSA Role Performed Vendor Vendor [employer]vention [employer] Psychologist, First Time In 05/20/19 13:44:00 05/20/19 13:44:00 05/20/19 13:44:00 Time Out 05/20/19 16:54:00 05/20/19 16:54:00 05/20/19 16:54:00 Procedure Knee Total Joint Knee Total Joint Knee Total Joint Revision(Left) Revision(Left) Revision(Left) Other Attendee richard baugh, MAK Canales REP Superficial Wound Closed By: Last Modified By: PRESTON ALANIS, RN PRESTON ALANIS, RN PRESTON ALANIS, RN 05/20/19 16:51:00 05/20/19 16:51:00 05/20/19 16:51:00 Entry 10 Entry 11 Entry 12 Case Attendee Baljinder Aj, JUVENAL CHONG MD-Leona Dennis [employer] Pref Card Builder Role Performed MEDICAL SCIENTIST/Nurse Drug Safety Associate Anesthesiologist of Scrub, First Record Time In 05/20/19 13:44:00 05/20/19 15:14:00 05/20/19 13:44:00 Time Out 05/20/19 14:16:00 05/20/19 16:54:00 05/20/19 15:41:00 Procedure Knee Total Joint Knee Total Joint Knee Total Joint Revision(Left) Revision(Left) Revision(Left) Other Attendee LUNCH RELIEF RELIEF Superficial Wound Closed By: Last Modified By: PRESTON ALANIS RN TAYLOR, MELISSA A, RN PRESTON ALANIS RN 05/20/19 16:51:00 05/20/19 16:51:00 05/20/19 16:51:00 Entry 13 Case Attendee YEIMI PARRA MEDICAL SCIENTIST Role Performed MEDICAL SCIENTIST/Nurse Drug Safety Associate Time In 05/20/19 15:28:00 Time Out 05/20/19 16:54:00 Procedure Knee Total Joint Revision(Left) Other Attendee RELIEF Superficial Wound Closed By: Last Modified By: PRESTON ALANIS RN 05/20/19 16:51:[address] [facility] IntraOp Case Attendance Audit 05/20/19 16:51:41 Ocean Export Coordinator: CHANTELL Modifier: CHANTELL 13 <+> Role Performed 13 <*> Procedure Knee Total Joint Revision(Left) 05/20/19 16:51:00 Ocean Export Coordinator: CHANTELL Modifier: CHANTELL 1 <+> Time Out 1 <*> Procedure [...] Procedure Knee Total Joint Revision(Left) 05/20/19 15:50:35 Ocean Export Coordinator: ANNABELLEME Modifier: TAYLORME 1 <*> Procedure Knee [...] Procedure <+> 13 Other Attendee 05/20/19 15:42:18 Ocean Export Coordinator: ANNABELLEME Modifier: TAYLORME <+> 12 Case Attendee <+> 12 Role Performed <+> 12 Procedure <+> 12 Other Attendee 05/20/19 15:29:20 Ocean Export Coordinator: ANNABELLEME Modifier: TAYLORME 5 <+> Time Out 5 <*> Procedure Knee Total Joint Revision(Left) 6 <+> Time Out 6 <*> Procedure Knee Total Joint Revision(Left) <+> 11 Case Attendee <+> 11 Role Performed <+> 11 Time In <+> 11 Procedure 05/20/19 14:30:32 Ocean Export Coordinator: ANNABELLEME Modifier: TAYLORME 3 <+> Time Out 3 <*> Procedure Knee Total Joint Revision(Left) 05/20/19 14:27:32 Ocean Export Coordinator: CHANTELL Modifier: CHANTELL 1 <*> Case Attendee LION DAVIS MD-ORT 1 <*> Role Performed Surgeon/Proceduralist, First 1 <*> Time In 05/20/19 13:44:00 1 <*> Procedure Knee Total Joint Revision(Left) 2 <*> Case Attendee PRESTON ALANIS, RN 2 <*> Role Performed Life Consultant, First 2 <*> Time In 05/20/19 13:44:00 2 <*> Procedure Knee Total Joint Revision(Left) 3 <*> Case Attendee RENETTA JOHN, RN 3 <*> Role Performed Life Consultant, Second 3 <*> Time In 05/20/19 13:44:00 [...] Joint Revision(Left) 6 <*> Case Attendee SUZIE DAY APRN, MEDICAL SCIENTIST-ANS 6 <*> Role Performed MEDICAL SCIENTIST/Nurse Drug Safety Associate 6 <*> Time In 05/20/19 13:44:00 6 <*> Procedure Knee Total Joint Revision(Left) 7 <*> Case Attendee VARGHESE NATHAN MD-ANS 7 <*> Role Performed Anesthesiologist [...] ELEUTERIO COLUNGA, CSA 10 <*> Role Performed Early Intervention School Psychologist, First 10 <*> Time In 05/20/19 13:44:00 10 <+> Time Out 10 <*> Procedure Knee Total Joint Revision(Left) 10 <+> Other Attendee 05/20/19 14:27:04 Ocean Export Coordinator: CAHNTELL Modifier: CHANTELL 1 <+> Time In 1 <*> Procedure [...] Procedure <+> 11 Other Attendee 05/20/19 14:01:30 Ocean Export Coordinator: CHANTELL Modifier: ANNABELLEME <+> 10 Case Attendee <+> 10 Role Performed <+> 10 Procedure 05/20/19 14:00:45 Ocean Export Coordinator: CHANTELL Modifier: ANNABELLEME <+> 1 Procedure 2 <*> Procedure Knee Total Joint Revision(Left) 3 <*> Procedure Knee Total Joint Revision(Left) 4 <*> Procedure Knee Total Joint Revision(Left) 5 <*> Procedure Knee Total Joint Revision(Left) 6 <*> Procedure Knee Total Joint Revision(Left) 7 <*> Procedure Knee Total Joint Revision(Left) 8 <*> Procedure Knee Total Joint Revision(Left) 9 <*> Procedure Knee Total Joint Revision(Left) [facility] IntraOp Case Times Entry 1 Patient In Room Time 05/20/19 13:44:00 Out Room Time 05/20/19 16:54:00 Anesthesia Start Time 05/20/19 13:44:00 Stop Time 05/20/19 16:54:00 Surgery / Procedure Times Start Time 05/20/19 14:15:00 Stop Time 05/20/19 16:50:00 Last Modified By: PRESTON ALANIS RN 05/20/19 16:50:[address] [facility] IntraOp Case Times Audit 05/20/19 16:50:56 Ocean Export Coordinator: CHANTELL Modifier: ANNABELLEME <+> 1 Out Room Time <+> 1 Stop Time <+> 1 Stop Time 05/20/19 14:26:07 Ocean Export Coordinator: CHANTELL Modifier: CHANTELL <+> 1 In Room Time <+> [address] [facility] IntraOp Cautery Entry 1 ESU Identification Cautery Type Monopolar ESU ID Number [id number] ID Type Hospital Number Cautery Settings Cut Setting 50 Coag Setting 50 ESU Grounding Pad Ground Pad Type Adult Grounding Pad Site Right thigh Grounding Pad RENETTA JOHN RN Applied By Grounding Pad Site Warm, dry and intact Skin Condition Before Cautery Grounding Pad Site Unchanged Skin Condition After Cautery Last Modified By: PRESTON ALANIS RN 05/20/19 14:31:[address] [facility] IntraOp Cautery Audit 05/20/19 14:31:24 Ocean Export Coordinator: CHANTELL Modifier: CHANTELL <+> 1 Grounding Pad Site <+> [address] [facility] IntraOp Communication Entry 1 Entry 2 Communication To Family/Significant other Family/Significant other Comment START UPDATE Communication By RENETTA JOHN, PRESTON THOMPSON RN Date and Time 05/20/19 14:14:00 05/20/19 15:38:00 Last Modified By: PRESTON ALANIS RN TAYLOR, MELISSA A, RN 05/20/19 15:40:41 05/20/19 15:40:[address] [facility] IntraOp Communication Audit 05/20/19 15:40:41 Ocean Export Coordinator: TAYLORME Modifier: TAYLORME <+> 1 Communication By <+> 1 Date and Time <+> 2 Communication By <+> 2 Date and Time <+> 2 Communication To <+> [address] [facility] IntraOp Counts Verification Entry 1 Procedure Knee Total Joint Revision(Left) Count Info Count Type Sponge, Sharps, Miscellaneous Counts Verification Baseline/pre-procedure Sequence Count Results Not Applicable Counts Performed By Count Performed By DIAN HOFFMANN (Scrub) Count Performed By RENETTA JOHN RN (RN) Last Modified By: PRESTON ALANIS RN 05/20/19 14:34:[address] [facility] IntraOp Counts Verification Audit 05/20/19 14:34:44 Ocean Export Coordinator: ANNABELLEME Modifier: TAYLORME 1 <*> Procedure Knee Total Joint Revision(Left) 1 <+> Count Performed By (Scrub) 1 <+> Count Performed By (RN) [facility] IntraOp Counts Final Entry 1 Procedure Knee Total Joint Revision(Left) Final Count Info Count Type Sponge, Sharps, Miscellaneous Counts Verification Skin Closure/end of Sequence procedure Count Results Correct, surgeon notified Counts Performed By Count Performed By Leona Ott, (Scrub) Allison Pref Card Builder Count Performed By PRESTON ALANIS RN (RN) Last Modified By: PRESTON ALANIS RN 05/20/19 16:28:[address] [facility] IntraOp Counts Final Audit 05/20/19 16:28:44 Ocean Export Coordinator: ANNABELLEME Modifier: ANNABELLEME 1 <*> Procedure Knee Total Joint Revision(Left) 1 <+> Count Performed By (Scrub) 1 <+> Count Performed By (RN) [facility] IntraOp Cultures and Spec Summary Entry 1 Cultrures and Specimens Specimen Ordered: Yes Test(s) Routine/Path-Lab, Requested/Final Culture(s)/Microbiology Disposition Last Modified By: PRESTON ALANIS RN 05/20/19 13:59:[address] [facility] IntraOp Departure from OR Entry 1 Integumentary Assessment Integumentary WDL Assessment WDL Transfer/Handoff Transfer to PACU Phase I Handoff Method Phone call Handoff Reported to THI STEPHENSON RN Post-op Transport Stretcher/Eliazar Via Patient Transport PRESTON ALANIS RN, Accompanied by SUZIE DAY, RETAIL INVENTORY CONTROL CLERK, MEDICAL SCIENTIST-ANS Last Modified By: PRESTON ALANIS RN 05/20/19 13:59:[address] [facility] IntraOp Drains and Tubes Entry 1 Device Type Hemovac Size LEFT KNEE Drain/Tube Activity Inserted Drain/Tube Drainage Red Device Location LEFT KNEE Tube Dressing Dry, Intact Condition Last Modified By: PRESTON ALANIS RN 05/20/19 14:04:[address] [facility] IntraOp Dressing and Packing Entry 1 Entry 2 Type Dressing Dressing Location LEFT KNEE LEFT KNEE Wound Dressing Item Other, Skin Closure Glue Other, Skin Closure Glue Wound Packing Type Tape Type Supplemental Limb immobilizer Limb immobilizer Applications Applied By ELEUTERIO COLUNGA CSA Other Comments [employer], New WORC (III) Development & Management, Last Modified By: PRESTON ALANIS RN TAYLOR, MELISSA A, RN 05/20/19 14:01:17 05/20/19 14:01:[address] [facility] IntraOp Dressing and Packing Audit 05/20/19 14:01:54 Ocean Export Coordinator: CHANTELL Modifier: CHANTELL <+> 2 Type <+> 2 Location <+> 2 Wound Dressing Item <+> 2 Applied By <+> 2 Supplemental Applications <+> [address] [facility] IntraOp Fire Risk Assessment Entry 1 Fire [...] Modified By: PRESTON ALANIS RN 05/20/19 14:27:[address] [facility] IntraOp Fire Risk Assessment Audit 05/20/19 14:27:12 Ocean Export Coordinator: CHANTELL Modifier: ANNABELLEME <+> 1 Fire Risk Assessment Verified By <+> 1 Fire Risk Assessment Verified Date/Time [facility] IntraOp General Case Cart Driver 1 Case Information OR OR [address] [facility] Case Level 1 Room Verified Yes Wound Class I - Clean Specialty SN Orthopedic Anesthesia Type General ASA Class 3 Diagnosis Preop Diagnosis LEFT KNEE INFECTED TOTAL KNEE ARTHROPLASTY Postop Same As Preop No Postop Diagnosis SEE MD POST OP NOTES Last Modified By: PRESTON ALANIS RN 05/20/19 14:26:[address] [facility] IntraOp General Case Data Audit 05/20/19 14:26:30 Ocean Export Coordinator: CHANTELL Modifier: CHANTELL <+> 1 ASA Class SJ IntraOp Implant Log Entry 1 Entry 2 Entry 3 Type Implant (Synthetic) Implant (Synthetic) Implant (Synthetic) Implant Log Implant Type Bone Cement Bone Cement Other Tissue Implant Type Implant CEMENT BONE SURG SMPLX CEMENT BONE SURG SMPLX PUTY OSTEOBST BN VD Identification P [id number] [id number] [id number] Description Implant Quantity 2 2 1 Implant Site LEFT KNEE LEFT KNEE LEFT KNEE Implant Identification Model Number Implant Identification Serial Number Implant [id number] Identification Lot Number Implant [place] [facility] Identification Orthopaedics Orthopaedics Hydrotherapist Name: Implant [id number] Identification Catalog Number Implant Size Implant Has an Yes Yes Yes Expiration Date Implant Expiration 05/02/21 04/02/21 10/31/21 Date Wasted Radioactive Material Time Implanted Tissue Implant Continue for Tissue Implant Documentation Tissue Identification Number Graft Prep Per Hydrotherapist Instructions: Tissue Preparation Method: Reconstitution Solution: Reconstitution Solution Lot Number Reconstitution Solution Expiration Date: Thawing Solution Thawing Solution Lot Number Thawing Solution Expiration Date Preparation Materials, Other Preparation Materials, Other Lot Number Preparation Materials, Other Expiration Date Tissue Prepared/Processed By Hydrotherapist Paperwork Completed Implant Type Comment Last Modified By: PRESTON ALANIS RN TAYLOR, MELISSA A, RN TAYLOR, MELISSA A, RN 05/20/19 14:38:06 05/20/19 15:31:45 05/20/19 14:36:36 Entry 4 Entry 5 Entry 6 Type Implant (Synthetic) Implant (Synthetic) Implant (Synthetic) Implant Log Implant Type Hardware Hardware Hardware Tissue Implant Type Implant COMP FEM PS KEITH NO.5 STEM CEMENTED BASEPLT TRIATHLON Identification [id number] Description Implant Quantity 1 1 1 Implant Site LEFT KNEE LEFT KNEE LEFT KNEE Implant Identification Model Number Implant Identification Serial Number Implant [id number] Identification Lot Number Implant [place] Breana:[place] Identification Orthopaedics Orthopaedics Orthopaedics Hydrotherapist Name: Implant [id number] Identification Catalog Number Implant Size Implant Has an Yes Yes Yes Expiration Date Implant Expiration 12/15/23 12/19/23 09/24/23 Date Wasted Radioactive Material Time Implanted Tissue Implant Continue for Tissue Implant Documentation Tissue Identification Number Graft Prep Per Hydrotherapist Instructions: Tissue Preparation Method: Reconstitution Solution: Reconstitution Solution Lot Number Reconstitution Solution Expiration Date: Thawing Solution Thawing Solution Lot Number Thawing Solution Expiration Date Preparation Materials, Other Preparation Materials, Other Lot Number Preparation Materials, Other Expiration Date Tissue Prepared/Processed By Hydrotherapist Paperwork Completed Implant Type Comment Last Modified By: PRESTON ALANIS RN TAYLOR, MELISSA A, RN TAYLOR, MELISSA A, RN 05/20/19 16:06:58 05/20/19 16:06:58 05/20/19 16:06:58 Entry 7 Type Implant (Synthetic) Implant Log Implant Type Hardware Tissue Implant Type Implant INSRT TIB ??#6 Identification [id number] Description Implant Quantity 1 Implant Site LEFT KNEE Implant Identification Model Number Implant Identification Serial Number Implant [id number] Identification Lot Number Implant [place] Identification Orthopaedics Hydrotherapist Name: Implant [id number] Identification Catalog Number Implant Size Implant Has an Yes Expiration Date Implant Expiration 05/01/22 Date Wasted Radioactive Material Time Implanted Tissue Implant Continue for Tissue Implant Documentation Tissue Identification Number Graft Prep Per Hydrotherapist Instructions: Tissue Preparation Method: Reconstitution Solution: Reconstitution Solution Lot Number Reconstitution Solution Expiration Date: Thawing Solution Thawing Solution Lot Number Thawing Solution Expiration Date Preparation Materials, Other Preparation Materials, Other Lot Number Preparation Materials, Other Expiration Date Tissue Prepared/Processed By Hydrotherapist Paperwork Completed Implant Type Comment Last Modified By: PRESTON ALANIS RN 05/20/19 16:21:[address] [facility] IntraOp Implant Log Audit 05/20/19 16:21:15 Ocean Export Coordinator: CHANTELL Modifier: CHANTELL <+> 7 Implant Identification Description <+> 7 Implant Identification Lot Number <+> 7 Implant Identification Hydrotherapist Name: <+> 7 Implant Expiration Date <+> 7 Implant Site <+> 7 Implant Quantity <+> 7 Implant Identification Catalog Number <+> 7 Implant Type <+> 7 Implant Has an Expiration Date <+> 7 Type 05/20/19 16:06:58 Ocean Export Coordinator: ANNABELLEME Modifier: CHANTELL <+> 4 Implant Identification Description <+> 4 Implant Identification Lot Number <+> 4 Implant Identification Hydrotherapist Name: <+> 4 Implant Expiration Date <+> 4 Implant Identification Catalog Number <+> 5 Implant Identification Description <+> 5 Implant Identification Lot Number <+> 5 Implant Identification Hydrotherapist Name: <+> 5 Implant Expiration Date <+> 5 Implant Identification Catalog Number <+> 6 Implant Identification Description <+> 6 Implant Identification Lot Number <+> 6 Implant Identification Hydrotherapist Name: <+> 6 Implant Expiration Date <+> 6 Implant Site <+> 6 Implant Quantity <+> 6 Implant Identification Catalog Number <+> 6 Implant Type <+> 6 Implant Has an Expiration Date <+> 6 Type 05/20/19 15:31:45 Ocean Export Coordinator: CHANTELL Modifier: ANNABELLEME 2 <*> Implant Identification Description CEMENT BONE SMPLX PRO FULL [id number] 2 <*> Implant Identification Catalog [id number] Number 05/20/19 14:38:06 Ocean Export Coordinator: CHANTELL Modifier: ANNABELLEME 1 <*> Implant Identification Description [id number] 1 <+> Implant Identification Hydrotherapist Name: 1 <+> Implant Identification Catalog Number 05/20/19 14:37:13 Ocean Export Coordinator: CHANTELL Modifier: ANNABELLEME <+> 5 Implant Site <+> 5 Implant Quantity <+> 5 Implant Type <+> 5 Implant Has an Expiration Date <+> 5 Type 05/20/19 14:36:36 Ocean Export Coordinator: CHANTELL Modifier: TAYLORME 1 <+> Implant Identification Description 1 <+> Implant Identification Lot Number 1 <+> Implant Expiration Date 1 <*> Implant Quantity 3 2 <+> Implant Identification Description 2 <+> Implant Identification Lot Number 2 <+> Implant Identification Hydrotherapist Name: 2 <+> Implant Expiration Date 2 <*> Implant Quantity 1 2 <+> Implant Identification Catalog Number 2 <*> Implant Type Other 3 <+> Implant Identification Description 3 <+> Implant Identification Lot Number 3 <+> Implant Identification Hydrotherapist Name: 3 <+> Implant Expiration Date 3 <+> Implant Identification Catalog Number 3 <*> Implant Type Hardware [facility] IntraOp Intraoperative Assessment Entry 1 Handoff Method [...] Modified By: PRESTON ALANIS RN 05/20/19 14:03:[address] [facility] IntraOp Intraoperative Equipment Entry 1 Type Equipment Equipment Equipment Dorinda Suction System ID Number [id number] Intraop Monitoring Antiembolic Devices Antiembolic Devices Sequential compression device, knee high Antiembolic Device Right Location Antiembolic Device [id number] ID Number Scopes Photo/Video Documentation Last Modified By: PRESTON ALANIS RN 05/20/19 14:31:[address] [facility] IntraOp Medication Admin Entry 1 Entry 2 Entry 3 Medication/Irrigant Bacitracin 50,000units Bacitracin 50,000units NS 0.9% 50ml injection powder vial powder vial - [id number] Combo Med List Time Administered Route of IRRIGATION IRRIGATION MIXED WITH BACITRACIN Administration Dose Dose [id number] 10 Unit of Measure units units ml Volume IN 3000MLS OF NACL IN 2000MLS OF NACL Administered By LION DAVIS, LION DAVIS KARTHIKEYAN, THARUN, MD-ORT MD-ORT MD-ORT Procedure Irrigation [...] TOBRAMYCIN 1.2GRAMS X [address] [facility] IntraOp Patient Positioning Entry 1 Procedure Knee [...] RENETTA JOHN RN, DIAN HOFFMANN, Baljinder Aj, COURTNEYKEANU JOHN T, URSULA Position Verified Positioning Yes Verified by Anesthesia Positioning Yes Verified by Surgeon Last Modified By: PRESTON ALANIS RN 05/20/19 14:32:[address] [facility] IntraOp Sign In Entry 1 Patient, Site, [...] Modified By: PRESTON ALANIS RN 05/20/19 14:00:[address] [facility] IntraOp Sign Out Entry 1 RN Confirmation [...] Modified By: PRESTON ALANIS RN 05/20/19 16:51:[address] [facility] IntraOp Sign Out Audit 05/20/19 16:51:18 Ocean Export Coordinator: CHANTELL Modifier: CHANTELL <+> 1 RN Sign Out Signature Date/Time [facility] IntraOp Skin Prep Entry 1 Procedure Knee Total Joint Revision(Left) Prescribed Yes Pre-Surgical Prep Completed Prep Area LEFT LEG Intraop Prep Integumentary WDL Assessment WDL Prep Agents Alcohol, Chlorhexadine gluconate, Chloraprep, DuraPrep Prep by RENETTA JOHN, RN Hair Removal Methods No hair removal performed Last Modified By: PRESTON ALANIS RN 05/20/19 14:33:[address] [facility] IntraOp Surgical Procedures Entry 1 Procedure Knee Total Joint Revision Modifiers Left Additional (LT TOTAL KNEE Procedure ARTHROPLASTY EXPLANT Description WITH INSERTION OF ANTIBIOTIC SPACER) Primary Procedure Yes Primary Surgeon LION DAVIS MD-ORT Start 05/20/19 14:15:00 Stop 05/20/19 16:50:00 Anesthesia Type General Specialty SN Orthopedic Wound Class I - Clean Last Modified By: PRESTON ALANIS RN 05/20/19 16:51:[address] [facility] IntraOp Surgical Procedures Audit 05/20/19 16:51:02 Ocean Export Coordinator: ANNABELLEME Modifier: ANNABELLEME <+> 1 Stop 05/20/19 14:27:06 Ocean Export Coordinator: ANNABELLEME Modifier: ANNABELLEME <+> [address] [facility] IntraOp Temp Regulation Devices Entry 1 Temp Regulation Temperature Forced Air Warming Regulation Device device, Warm blankets Temperature Upper body Regulation Site Temperature Baljinder Aj, MEDICAL SCIENTIST Regulation Device Applied by Last Modified By: PRESTON ALANIS RN 05/20/19 14:33:[address] [facility] IntraOP Time Out Entry 1 Procedure to [...] Modified By: PRESTON ALANIS RN 05/20/19 14:25:[address] [facility] IntraOP Time Out Audit 05/20/19 14:25:26 Ocean Export Coordinator: ANNABELLEME Modifier: ANNABELLEME 1 <+> Time Out Pause Time 1 <*> Procedure to be Performed Knee Total Joint Revision(Left) [facility] IntraOp Tourniquet Entry 1 Type Pneumatic Serial/Unit Number [id number] Setting 300 Pheumatic Yes Tourniquet Checked Per Protocol Size 34 inches Placement Thigh, left upper Skin Protection - Yes Padded Under Cuff Applied By ELEUTERIO COLUNGA, CSA Removed By ELEUTERIO COLUNGA, CSA Times Start Time 05/20/19 14:14:00 Stop Time 05/20/19 15:58:00 Last Modified By: PRESTON ALANIS RN 05/20/19 16:52:[address] [facility] IntraOp Tourniquet Audit 05/20/19 16:52:27 Ocean Export Coordinator: CHANTELL Modifier: TAYLORME <+> 1 Stop Time 05/20/19 14:34:33 Ocean Export Coordinator: CHANTELL Modifier: ANNABELLEME 1 <+> Setting 1 [...] for Unfinalizing 05/22/19 16:38 WATTSDR Correct Billing Electronically signed by [place] [facility] Conversion Front Tender Cerner at 11/18/2022 9:31 AM CDT documented in this encounter Plan of Treatment Not on file documented as of this encounter Visit Diagnoses Not on filedocumented in this encounter Care Teams Pot Puncher Relationship Specialty Start Date End Date Alfredo Aguiar MD [address] [place] [address] PCP - General Adolescent Medicine 10/16/22 10/19/22 Alfredo Aguiar MD [address] [place] [address] PCP - General Adolescent Medicine 10/20/22 documented as of this encounter
--- OUTSIDE RECORDS SUMMARY | 2025-05-08 14:08 | XMS_ITS | Encounter Summary ---
Author Organization [employer] ([place], [place], [place], [place]) Address [address] [place] [address] Care Team Providers Care Mess Attendant Name Role Phone Alfredo Aguiar MD Primary Care Provider + [phone] Alfredo Aguiar MD Primary Care Provider + [phone] Encounter Details Date Type Department Care Team (Late st Contact Info) Description 08/17/2019 Transcribed Document [facility] 1 [place] [address] Guillermina Allison MD [facility]7 [place] [address] Social History Tobacco Use Types Packs/Day Years [...] of absorbable antibiotic cement beads, left knee. AGENT CONTRACT CLERK: Chris Ag. ANESTHESIA: General endotracheal anesthesia with femoral and sciatic nerve blocks. ESTIMATED BLOOD LOSS: 100 mL. TOTAL TOURNIQUET TIME: 120 minutes. COMPLICATIONS: None. IMPLANTS USED: 1. Breana Triathlon, size 6, total stabilized femoral component [...] correct at the end of the case. /[id number] Guillermina Allison MD TK/AQ / TK / MODL /[id number] documented in this encounter Plan of Treatment Not on file documented as of this encounter Visit Diagnoses Not on filedocumented in this encounter Care Teams Mess Attendant Relationship Specialty Start Date End Date Alfredo Aguiar MD [address] [place] [address] PCP - General Adolescent Medicine 10/16/22 10/19/22 Alfredo Aguiar MD [address] [place] [address] PCP - General Adolescent Medicine 10/20/22 documented as of this encounter
--- OUTSIDE RECORDS SUMMARY | 2025-05-08 14:08 | XMS_ITS | Encounter Summary ---
Author Organization [employer] ([place], [place], [place], [place]) Address [address] [facility] [place] [address] Care Team Providers Care Environmental Scientists Name Role Phone Alfredo Aguiar MD Primary Care Provider + [phone] Alfredo Aguiar MD Primary Care Provider + [phone] Encounter Details Date Type Department Care Team (Late st Contact Info) Description 08/17/2019 Transcribed Document [facility] 1 [place] [address] Guillermina Allison MD [facility]7 [place] [address] Social History Tobacco Use Types Packs/Day Years [...] Problems Tachycardia, takes bisoprolol / SNOMED CT 6936711 / Confirmed Sleep apnea (cpap) / SNOMED CT 791932330 / Confirmed Skin cancer / SNOMED CT 5049017888 / Confirmed Bundle branch block, right / SNOMED CT 25395615 / Confirmed Restless legs syndrome (occasional) / SNOMED CT 14121996 / Confirmed Infection of prosthetic left knee joint / SNOMED CT 003144160 / Confirmed Degenerative joint disease (left knee) / SNOMED CT 9566782940 / Confirmed Migraine (hx of) / SNOMED CT 94903682 / Confirmed Incontinence (occasional) / SNOMED CT 77554747 / Confirmed History of obstructive sleep apnea / IMO 82359426 / Confirmed Hiatal hernia / SNOMED CT 848458929 / Confirmed H/O: TIA / SNOMED CT 634149796 / Confirmed states went to ER and was given workup, which was inconclusive GERD - Gastro-esophageal reflux disease (occasional) / SNOMED CT 6012647521 / Confirmed 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 Integumentary: Warm, Dry, Alice, mild redness in gluteal fold POA. Neurologic: [...] on filedocumented in this encounter Care Teams Environmental Scientists Relationship Specialty Start Date End Date Alfredo Aguiar MD [address] [place] [address] PCP - General Adolescent Medicine 10/16/22 10/19/22 Alfredo Aguiar MD [address] [place] [address] PCP - General Adolescent Medicine 10/20/22 documented as of this encounter
--- OUTSIDE RECORDS SUMMARY | 2025-05-08 14:08 | XMS_ITS | Encounter Summary ---
Author Organization [employer] ([place], [place], [place], [place]) Address [address] [place] [address] Care Team Providers Care Sample Collector Name Role Phone Alfredo Aguiar MD Primary Care Provider + [phone] Alfredo Aguiar MD Primary Care Provider + [phone] Encounter Details Date Type Department Care Team (Late st Contact Info) Description 08/16/2019 Transcribed Document [facility] [place] [address] [place] [address] ProviderEryn MD [address] [place] [address] Social History Tobacco Use Types Packs/Day Years Used Date Smoking Tobacco: Never Assessed Sex and Gender Information Value Date Recorded Sex Assigned at Not on file Legal Sex Male 5:45 PM CDT Gender Identity Not on file Sexual Orientation Not on file documented as of this encounter Miscellaneous Notes * Cerner Conversion Note - Eryn ProviderMD - 08/16/2019 1:25 PM HEATING ELEMENT WINDER UM Authorization Entered On: 08/16/2019 13:26 EST Performed On: 08/16/2019 13:25 EST by JASWANT PALMA, Clinical Veterinarian Primary Insurance Authorization Authorization and Policy Numbers : Insurance 1 Health Plan: MEDICARE Policy Number: [id number] Authorization Number: Insurance 2 Health Plan: FOR LIFE Policy Number: [id number] Authorization Number: Insurance Primary Name : Medicare [id number] Authorized Service Begin Date-Primary : 08/17/2019 EST Authorization Comments-Primary : pt scheduled as OUTPT for total knee on 08-17-2019 medicare: NPR Historical Authorization Comments-Primary : No Authorization Comments Found JASWANT PALMA, Clinical Veterinarian - 08/16/2019 13:25 EST Electronically signed by Wellington, [facility] Conversion Residence Counselor Cerner at 11/18/2022 9:35 AM CDT documented in this encounter Plan of Treatment Not on file documented as of this encounter Visit Diagnoses Not on filedocumented in this encounter Care Teams Sample Collector Relationship Specialty Start Date End Date Alfredo Aguiar MD [address] [place] [address] PCP - General Adolescent Medicine 10/16/22 10/19/22 Alfredo Aguiar MD [address] [place] [address] PCP - General Adolescent Medicine 10/20/22 documented as of this encounter
--- OUTSIDE RECORDS SUMMARY | 2025-05-08 14:08 | XMS_ITS | Encounter Summary ---
Author Organization [employer] ([place], [place], [place], [place]) Address [address] [place] [address] Care Team Providers Care Jigmaker Name Role Phone Alfredo Aguiar MD Primary Care Provider + [phone] Alfredo Aguiar MD Primary Care Provider + [phone] Encounter Details Date Type Department Care Team (Late st Contact Info) Description 05/20/2019 Transcribed Document [facility] [place] [facility] [place] [address] ProviderEryn MD [address] [place] [address] Social History Tobacco Use Types Packs/Day Years [...] Legal Guardian : Daughter, Spouse Support Person/Patient Nursery Attendant : Yes Support Person/Pt Rep Name : Ashli vázquez Contact Password : Peter Support Person/Pt Rep Contact Information : Want Family/Rep/Phys Notified of Admit : No Emergency Contact #1 : Ashli Vázquez Emergency Contact #1 Emergency Contact #1 Relationship : Emergency Contact #2 : Raysa Escobar Emergency Contact #2 Emergency Contact #2 Relationship : daughter Information Obtained From : Patient Primary Language : [place] Citizen Preferred Communication Mode : Verbal Communication Barrier [...] IV Therapy or IV Access : Yes Rfeed Gait/Transferring : Weak Freed Mental Status : Oriented to own ability Freed Fall Risk Score : 45 FREED Fall Scale Risk Level : 25-45 Medium Risk [place] Fall Interventions : Adequate lighting, Bed in [...] 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 Alcohol Use Frequency Rarely. (Last Updated: 03/24/2018 13:52:20 EDT by HERMAN LARSEN RN) Substance Abuse: Drug Use Hx: No. Use in Last 12 Months: No. (Last Updated: 03/24/2018 13:52:32 EDT by HERMAN LARSEN RN) Height and Weight, Clinical Dosing Height Source : Measured Height Entry Format : Obion Height, Feet : 0 ft(Converted to: 0 cm, 0 Inch) Height, Inches : 72 Inch(Converted to: 6 ft 0 Inch, 182.88 cm) Clinical Height : 182.88 cm Weight Source : Standing scale Weight Entry Format : Obion Clinical Dosing Weight : 80.63 kg Weight, Pounds : 177 lb Weight, Ounces : 6 oz Body Surface Area (BSA) : 2.03 m2 Body Mass Index : 24.1 kg/m2 (HI) [place] Body Weight : 77 kg Ed Sosa RN-Nishant - 05/20/2019 19:56 EDT Infectious Disease History [...] on filedocumented in this encounter Care Teams Jigmaker Relationship Specialty Start Date End Date Alfredo Aguiar MD [address] [place] [address] PCP - General Adolescent Medicine 10/16/22 10/19/22 Alfredo Aguiar MD [address] [place] [address] PCP - General Adolescent Medicine 10/20/22 documented as of this encounter
--- OUTSIDE RECORDS SUMMARY | 2025-05-08 14:08 | XMS_ITS | Encounter Summary ---
Author Organization [facility] Address [address] [place] [address] Care Team Providers Care Flat Ironer Name Role Phone Alfredo Aguiar MD Primary Care Provider [phone] Reason for Visit * Reason Comments Med Refill Encounter Details Date Type Department Care Team (Late st Contact Info) Description 04/10/2025 Refill [facility] Endocrinology [address] [place] [address] Neena Fields, MMD UNIT TEACHER [address] [facility] [address] [place] [address] Social History Tobacco Use Types [...] Description 05/31/2025 9:20 AM EDT Office Visit [facility] Endocrinology [address] [place] [address] Neena Fields, MMD UNIT TEACHER [address] [place] [address] documented as of this encounter Visit Diagnoses Not on filedocumented in this encounter Additional Health Concerns Assessment Noted Time A fall risk assessment has been complete d for the patient 02/01/2025 12:40 PM EDT A Body Mass Index follow-up plan has been documented for the patient 02/01/2025 1:21 PM EDT documented as of this encounter Care Teams Flat Ironer Relationship Specialty Start Date End Date Alfredo Aguiar MD [address] [place] [address] PCP - General 12/14/20 documented as of this encounter
--- OUTSIDE RECORDS SUMMARY | 2025-05-08 14:08 | XMS_ITS | Encounter Summary ---
Author Organization [employer] ([place], [place], [place], [place]) Address [address] [place] [address] Care Team Providers Care Bindery Machine Setter Name Role Phone Alfredo Aguiar MD Primary Care Provider + [phone] Alfredo Aguiar MD Primary Care Provider + [phone] Encounter Details Date Type Department Care Team (Late st Contact Info) Description 08/17/2019 Transcribed Document [facility] [place] [address] ProviderEryn MD [address] [place] [address] Social History Tobacco Use Types Packs/Day Years Used Date Smoking Tobacco: Never Assessed Sex and Gender Information Value Date Recorded Sex Assigned at Not on file Legal Sex Male 5:45 PM CDT Gender Identity Not on file Sexual Orientation Not on file documented as of this encounter Miscellaneous Notes * Cerner Conversion Note - Eryn Arcos MD - 08/17/2019 2:22 PM DATA CENTER ENGINEER [facility] PACU Summary Primary Physician: LION DAVIS MD-ORT Finalized Date/Time: 08/17/19 19:17:06 Pt. Name: LORA JAIN JR/Sex: 1940 Male Med Rec #: [id number] Physician: LION DAVIS MD-ORT Financial #: [id number] Pt. Type: I Room/Bed: [facility]/ Admit/Disch: 08/17/19 07:12:00 - Institution: [facility] OR PACU I Case Times Entry 1 In PACU I 08/17/19 17:07:00 Ready for PACU 08/17/19 18:20:00 Discharge Discharge from PACU 08/17/19 18:20:00 I Last Modified By: THI STEPHENSON RN 08/17/19 19:16:56 [facility] PACU I Case Times Audit 08/17/19 19:16:56 Quality Director: LU Modifier: LU 1 <*> In PACU I 08/17/19 19:16:00 1 <+> Ready for PACU Discharge 1 <+> Discharge from PACU I Finalized By: THI STEPHENSON, RN Document Signatures Signed By: THI STEPHENSON RN 08/17/19 19:[address] [facility] Conversion Line Haul Owner Operator Cerner at 11/18/2022 9:33 AM CDT documented in this encounter Plan of Treatment Not on file documented as of this encounter Visit Diagnoses Not on filedocumented in this encounter Care Teams Bindery Machine Setter Relationship Specialty Start Date End Date Alfredo Aguiar MD [address] [place] [address] PCP - General Adolescent Medicine 10/16/22 10/19/22 Alfredo Aguiar MD [address] [place] [address] PCP - General Adolescent Medicine 10/20/22 documented as of this encounter
--- OUTSIDE RECORDS SUMMARY | 2025-05-08 14:08 | XMS_ITS | Encounter Summary ---
Author Organization [employer] ([place], [place], [place], [place]) Address [address] [facility] [place] [address] Care Team Providers Care Maintenance Technician 3Rd Shift Name Role Phone Alfredo Aguiar MD Primary Care Provider + [phone] Alfredo Aguiar MD Primary Care Provider + [phone] Encounter Details Date Type Department Care Team (Late st Contact Info) Description 05/20/2019 Transcribed Document [facility] 1 [place] [address] Lion Allison MD [address] [place] [address] Social History Tobacco Use Types Packs/Day Years [...] on filedocumented in this encounter Care Teams Maintenance Technician 3Rd Shift Relationship Specialty Start Date End Date Alfredo Aguiar MD [address] [place] [address] PCP - General Adolescent Medicine 10/16/22 10/19/22 Alfredo Aguiar MD [address] [place] [address] PCP - General Adolescent Medicine 10/20/22 documented as of this encounter
--- OUTSIDE RECORDS SUMMARY | 2025-05-08 14:08 | XMS_ITS | Encounter Summary ---
Author Organization [employer] ([place], [place], [place], [place]) Address [address] [place] [address] Care Team Providers Care Surgical Scrub Tech Name Role Phone Alfredo Aguiar MD Primary Care Provider + [phone] Alfredo Aguiar MD Primary Care Provider + [phone] Encounter Details Date Type Department Care Team (Late st Contact Info) Description 08/17/2019 Transcribed Document [facility] [place] [facility] [place] [address] ProviderEryn MD [address] [place] [address] Social History Tobacco Use Types Packs/Day Years Used Date Smoking Tobacco: Never Assessed Sex and Gender Information Value Date Recorded Sex Assigned at Not on file Legal Sex Male 5:45 PM CDT Gender Identity Not on file Sexual Orientation Not on file documented as of this encounter Miscellaneous Notes * Cerner Conversion Note - rEyn ProviderMD - 08/17/2019 6:35 PM LINING BRUSHER Pain Assessment Entered On: 08/19/2019 1:41 EST [...] on filedocumented in this encounter Care Teams Surgical Scrub Tech Relationship Specialty Start Date End Date Alfredo Aguiar MD [address] [place] [address] PCP - General Adolescent Medicine 10/16/22 10/19/22 Alfredo Aguiar MD [address] [place] [address] PCP - General Adolescent Medicine 10/20/22 documented as of this encounter
--- OUTSIDE RECORDS SUMMARY | 2025-05-08 14:08 | XMS_ITS | Encounter Summary ---
Author Organization [employer] ([place], [place], [place], [place]) Address [address] [place] [address] Care Team Providers Care Casting Associate Name Role Phone Alfredo Aguiar MD Primary Care Provider + [phone] Alfredo Aguiar MD Primary Care Provider + [phone] Encounter Details Date Type Department Care Team (Late st Contact Info) Description 05/20/2019 Transcribed Document [facility] [place] [facility] [place] [address] ProviderEryn MD [address] [place] [address] Social History Tobacco Use Types Packs/Day Years [...] Performed On: 05/22/2019 10:53 EDT by Marcelina Bojorquez RN Intervention Information: oxyCODONE Performed by Marcelina Bojorquez RN on 05/22/2019 09:53:00 EDT oxyCODONE,5mg Oral,Pain [...] on filedocumented in this encounter Care Teams Casting Associate Relationship Specialty Start Date End Date Alfredo Aguiar MD [address] [place] [address] PCP - General Adolescent Medicine 10/16/22 10/19/22 Alfredo Aguiar MD [address] [place] [address] PCP - General Adolescent Medicine 10/20/22 documented as of this encounter
--- OUTSIDE RECORDS SUMMARY | 2025-05-08 14:08 | XMS_ITS | Encounter Summary ---
Author Organization [employer] ([place], [place], [place], [place]) Address [address] [place] [address] Care Team Providers Care Blue Leather Sorter Name Role Phone Alfredo Aguiar MD Primary Care Provider + [phone] Alfredo Aguiar MD Primary Care Provider + [phone] Encounter Details Date Type Department Care Team (Late st Contact Info) Description 05/23/2019 Transcribed Document [facility] [facility] [place] [facility] [place] [address] ProviderEryn MD [address] [place] [address] Social History Tobacco Use Types Packs/Day Years [...] Performed On: 05/23/2019 13:10 EDT by JUANY HERNANDEZ, RN-Senior Project Architect Initial Assessment I Previously Documented Living Environment : No qualifying data available. Living Situation : Home Patient Lives With : Spouse Is the Patient a Caregiver at Home? : No Emergency Contact #1 : Ashli Vázquez Emergency Contact #1 Emergency Contact #1 Relationship : Emergency Contact #2 : Raysa Luz Emergency Contact #2 Emergency Contact #2 Relationship : daughter VAP, JUANY A, RN-Senior Project Architect - 05/23/2019 13:10 EDT Initial Assessment II Sensory and Motor Deficits : None JUANY HERNANDEZ RN-Senior Project Architect - 05/23/2019 13:10 EDT Discharge Needs I Anticipated Discharge Date : 05/23/2019 EDT Anticipated Discharge To, CM : detention facility Current Home Treatment/Equipment : Current Home Treatment/Equipment No qualifying data available. Documentation Status Complete : Yes JUANY HERNANDEZ RN-Senior Project Architect - 05/23/2019 13:10 EDT Discharge Needs II Professional Skilled Services : Professional Skilled Services No qualifying data available. Needs Assistance with Transportation : Yes Discharge Options Discussed with Patient : Short term rehabilitation JUANY HERNANDEZ RN-Senior Project Architect - 05/23/2019 13:10 EDT Narrative Note Narrative Note : 78yo male pt s/p LTK revision. Met with pt and family at bedside this am to discuss DCP. They request rehab at [facility], referral sent via Sanjay and informed Colleene. PICC placed today for IV abx, ID will follow pt at rehab. Pt has bed on SRU today. [facility] WC Van @ 1615. No other CM needs identified. JUANY HERNANDEZ RN-Senior Project Architect - 05/23/2019 13:10 EDT Electronically signed by Wellington [facility] Conversion Sample Case Porter Cerner at 11/18/2022 9:38 AM CDT documented in this encounter Plan of Treatment Not on file documented as of this encounter Visit Diagnoses Not on filedocumented in this encounter Care Teams Blue Leather Sorter Relationship Specialty Start Date End Date Alfredo Aguiar MD [address] [place] [address] PCP - General Adolescent Medicine 10/16/22 10/19/22 Alfredo Aguiar MD [address] [place] [address] PCP - General Adolescent Medicine 10/20/22 documented as of this encounter
--- OUTSIDE RECORDS SUMMARY | 2025-05-08 14:08 | XMS_ITS | Encounter Summary ---
Author Organization [employer] ([place], [place], [place], [place]) Address [address] [place] [address] Care Team Providers Care Centralized Traffic Control Operator Name Role Phone Alfredo Aguiar MD Primary Care Provider + [phone] Alfredo Aguiar MD Primary Care Provider + [phone] Encounter Details Date Type Department Care Team (Late st Contact Info) Description 08/17/2019 Transcribed Document [facility] [place] [facility] [place] [address] ProviderEryn MD [address] [place] [address] Social History Tobacco Use Types Packs/Day Years Used Date Smoking Tobacco: Never Assessed Sex and Gender Information Value Date Recorded Sex Assigned at Not on file Legal Sex Male 5:45 PM CDT Gender Identity Not on file Sexual Orientation Not on file documented as of this encounter Miscellaneous Notes * Cerner Conversion Note - Eryn ProviderMD - 08/17/2019 6:35 PM SOUND EFFECTS PERSON Evaluation, Physical Therapy Entered On: 08/18/2019 11:52 EST Performed On: 08/18/2019 11:36 EST by DELMIS ATKINS, PT General Information, PT Visit Type, PT [...] Independent Prior LOF Transfer : Independent DELMIS ATKINS PT - 08/18/2019 11:36 EST Upper Extremity Right UE Active ROM : WFL Right UE Strength : WFL Left UE Active ROM : WFL Left UE Strength : WFL DELMIS ATKINS, PT - 08/18/2019 11:36 EST Lower Extremity RLE Active ROM : WFL Right LE Strength : WFL LLE Active ROM : Impaired Left LE Strength : Impaired DELMIS ATKINS, PT - 08/18/2019 11:36 EST Left Lower [...] DELMIS ATKINS, PT - 08/18/2019 11:36 EST Rotational Moulding Operator Goals Mobility/Bed Mobility LTG PT Grid [...] DELMIS ATKINS, PT - 08/18/2019 11:36 EST [place] PT Charges PT Therap. Exercise 15 min : 1 Gait Training Each 15 Min : 1 PT Eval Low Complexity : 1 DELMIS ATKINS, PT - 08/18/2019 11:36 EST Electronically signed by Wellington [facility] Conversion Cell Biology Scientist Cerner at 11/18/2022 9:32 AM CDT documented in this encounter Plan of Treatment Not on file documented as of this encounter Visit Diagnoses Not on filedocumented in this encounter Care Teams Centralized Traffic Control Operator Relationship Specialty Start Date End Date Alfredo Aguiar MD [address] [place] [address] PCP - General Adolescent Medicine 10/16/22 10/19/22 Alfredo Aguiar MD [address] [place] [address] PCP - General Adolescent Medicine 10/20/22 documented as of this encounter
--- OUTSIDE RECORDS SUMMARY | 2025-05-08 14:08 | XMS_ITS | Encounter Summary ---
Author Organization [employer] ([place], [place], [place], [place]) Address [address] [place] [address] Care Team Providers Care Podiatry Professor Name Role Phone Alfredo Aguiar MD Primary Care Provider + [phone] Alfredo Aguiar MD Primary Care Provider + [phone] Encounter Details Date Type Department Care Team (Late st Contact Info) Description 05/25/2019 Transcribed Document [facility] [place] [address] ProviderEryn MD [address] [place] [address] Social History Tobacco Use Types Packs/Day Years Used Date Smoking Tobacco: Never Assessed Sex and Gender Information Value Date Recorded Sex Assigned at Not on file Legal Sex Male 5:45 PM CDT Gender Identity Not on file Sexual Orientation Not on file documented as of this encounter Miscellaneous Notes * [employer] Conversion Note - Eryn Arcos MD - [...] on filedocumented in this encounter Care Teams Podiatry Professor Relationship Specialty Start Date End Date Alfredo Aguiar MD [address] [place] [address] PCP - General Adolescent Medicine 10/16/22 10/19/22 Alfredo Aguiar MD [address] [place] [address] PCP - General Adolescent Medicine 10/20/22 documented as of this encounter
--- OUTSIDE RECORDS SUMMARY | 2025-05-08 14:08 | XMS_ITS | Encounter Summary ---
Author Organization [employer] ([place], [place], [place], [place]) Address [address] [place] [address] Care Team Providers Care Sba Underwriter Name Role Phone Alfredo Aguiar MD Primary Care Provider + [phone] Alfredo Aguiar MD Primary Care Provider + [phone] Encounter Details Date Type Department Care Team (Late st Contact Info) Description 05/23/2019 Transcribed Document [facility] [place] Family Medicine [facility] [place] [address] ProviderEryn MD [address] [place] [address] Social History Tobacco Use Types Packs/Day Years [...] : Yes ADITYA CRUMP RN - 05/23/2019 16:32 EDT Pain Scale Intensity : 0 ADITYA CRUMP, ELICEO - 05/23/2019 16:32 EDT Image 4 - Images currently included in the form version of this document have not been included in the text rendition version of the form. documented in this encounter Plan of Treatment Not on file documented as of this encounter Visit Diagnoses Not on filedocumented in this encounter Care Teams Sba Underwriter Relationship Specialty Start Date End Date Alfredo Aguiar MD [address] [place] [address] PCP - General Adolescent Medicine 10/16/22 10/19/22 Alfredo Aguiar MD [address] [place] [address] PCP - General Adolescent Medicine 10/20/22 documented as of this encounter
--- OUTSIDE RECORDS SUMMARY | 2025-05-08 14:08 | XMS_ITS | Encounter Summary ---
Author Organization [employer] ([place], [place], [place], [place]) Address [address] [place] [address] Care Team Providers Care Can Piler Name Role Phone Alfredo Aguiar MD Primary Care Provider + [phone] Alfredo Aguiar MD Primary Care Provider + [phone] Encounter Details Date Type Department Care Team (Late st Contact Info) Description 08/17/2019 Transcribed Document [facility] [place] [address] ProviderEryn MD [address] [place] [address] Social History Tobacco Use Types Packs/Day Years Used Date Smoking Tobacco: Never Assessed Sex and Gender Information Value Date Recorded Sex Assigned at Not on file Legal Sex Male 5:45 PM CDT Gender Identity Not on file Sexual Orientation Not on file documented as of this encounter Miscellaneous Notes * Cerner Conversion Note - Historical ProviderMD - 08/17/2019 11:49 AM COLLAR TAILOR Event Note Entered On: 08/17/2019 11:50 EST [...] on filedocumented in this encounter Care Teams Can Piler Relationship Specialty Start Date End Date Alfredo Aguiar MD [address] [place] [address] PCP - General Adolescent Medicine 10/16/22 10/19/22 Alfredo Aguiar MD [address] [place] [address] PCP - General Adolescent Medicine 10/20/22 documented as of this encounter
--- OUTSIDE RECORDS SUMMARY | 2025-05-08 14:08 | XMS_ITS | Encounter Summary ---
Author Organization [employer] ([place], [place], [place]) Address [address] [place] [address] Care Team Providers Care Digital Photographic Printer Name Role Phone Alfredo Aguiar MD Primary Care Provider + [phone] Alfredo Aguiar MD Primary Care Provider + [phone] Encounter Details Date Type Department Care Team (Late st Contact Info) Description 05/20/2019 Transcribed Document [facility] [facility] [place] [address] ProviderEryn MD [address] [place] [address] Social History Tobacco Use Types Packs/Day Years Used Date Smoking Tobacco: Never Assessed Sex and Gender Information Value Date Recorded Sex Assigned at Not on file Legal Sex Male 5:45 PM CDT Gender Identity Not on file Sexual Orientation Not on file documented as of this encounter Miscellaneous Notes * Cerner Conversion Note - Eryn ProviderMD - 05/20/2019 4:51 PM CDT Evaluation, Occupational [...] 12:32 EDT Bed Comment : x2 LYNDSAY GARZA OTR/Jacobo 05/22/2019 12:32 EDT Cognition Assessment, OT Orientation : Oriented x 4 Cognition Assessment, OT : Intact Comprehension Assessment, OT : Intact LYNDSAY GARZA OTR/Jacobo 05/22/2019 12:32 EDT Indication Assessment, OT Occupational [...] OT : see goals LYNDSAY GARZA OTR/Jacobo - 05/22/2019 12:32 EDT Bit Tripoler Goals, OT Dressing, Lower Body LTG Grid [...] LYNDSAY GARZA OTR/Jacobo - 05/22/2019 12:32 EDT Toilet Transfer LTG Grid Goal #1 Activity : Toilet Transfer, Ambulatory Assist : Supervision or set up Date to Meet : 06/05/2019 EDT Goal Status : Initial goal Comment : TDWB LLE LYNDSAY GARZA OTR/Jacobo - 05/22/2019 12:32 EDT Bed Mobility/ Bed Transfer LTG Grid Goal #1 Activity : Bed Mobility/Bed Transfer Assist : Independent, modified Date to Meet : 06/05/2019 EDT Goal Status : Initial goal LYNDSAY GARZA OTR/Jacobo - 05/22/2019 12:32 EDT Treatment Note Subjective Comment [...] Min A x2. Pt issued AE of art museum docent/long sponge/shoe horn/leg seismograph shooter. Pt was left in chair with call light/phone within reach. Chair alarm activated. Assessment : Pt would benefit from OT to increase functional status. Plan for Treatment : Continue with pts POC per pt tolerance. LYNDSAY GARZA OTR/Jacobo - 05/22/2019 12:32 EDT Pain Assessment Pain Scaled Used : 0-10 Pain scale Pain Score Pre-Intervention : 5 Pain Score During-Intervention : 5 Pain Score Post-Intervention. : 5 Location : Leg, left LYNDSAY GARZA MARTINA/Jacobo - 05/22/2019 12:32 EDT Image 1 - Images currently included in the form version of this document have not been included in the text rendition version of the form. Anticipated Discharge Needs, OT/PT Anticipated Discharge to : Unit, rehabilitation Recommend Continued Therapy at Discharge : Yes GIRMA GARZAMARTINA Hernandez/Jacobo - 05/22/2019 12:32 EDT [place] OT Charges OT Selfcare/Hm Mgmt Ea 15 Min : 1 OT Eval Moderate Complexity : 1 LYNDSAY GARZAMARTINA/Jacobo - 05/22/2019 12:32 EDT Electronically signed by Radha [place] Conversion Health Records Technology Teacher Cerner at 11/18/2022 9:25 AM CDT documented in this encounter Plan of Treatment Not on file documented as of this encounter Visit Diagnoses Not on filedocumented in this encounter Care Teams Digital Photographic Printer Relationship Specialty Start Date End Date Alfredo Aguiar MD [address] [place] [address] PCP - General Adolescent Medicine 10/16/22 10/19/22 Alfredo Aguiar MD [address] [place] [address] PCP - General Adolescent Medicine 10/20/22 documented as of this encounter
--- OUTSIDE RECORDS SUMMARY | 2025-05-08 14:08 | XMS_ITS | Clinical Summary ---
Author Organization [facility] Address [address] [place] [address] Phone Care Team Providers Care Questioned Documents Examiner Name Role Phone Danish MALDONADO, Baljinder Jara [facility] [ ] Conditions or Problems Problem Name Problem Code Onset Date Status Entry Date Provider Comment Standard Description Annotate Acute nontraumatic kidney injury 076500576631 103 (SNOMED CT) 11/23 Active 11/23 Baljinder Peng MD Acute nontraumatic kidney injury Anemia due to acute blood loss 651933206 (SNOMED CT) 08/24 Active 08/24 Michelle Mcmanus [...] diabetes mellitus without complications Benign Essential Hypertension 66162352 (SNOMED CT) 08/14 Active 08/14 Michelle Mcmanus Benign hypertension Malignant neoplasm of prostate 897648008 (SNOMED CT) 08/14 Active 08/14 Michelle Mcmanus Malignant neoplasm of prostate Medications Medication Instructions Start Date Stop Date Generic Name NDC Provider AMOXICILLIN 875 MG TABS Take by mouth twice a day 3 AMOXICILLIN 42904911716 Baljinder Peng MD AMOXICILLIN 875 MG TABS Take by mouth twice a day 3 AMOXICILLIN 26453844747 Baljinder Peng MD AMOXICILLIN 875 MG TABS Take one (1) tablet by mouth twice a day 1 AMOXICILLIN 14296910499 Baljinder Peng MD AMOXICILLIN 875 MG TABS 1 by mouth twice a day 3 AMOXICILLIN 81572735781 Baljinder Peng MD AMOXICILLIN-POT CLAVULANATE 875-125 MG TABS one po bid 5 AMOXICILLIN-PO T CLAVULANATE 12355844041 Baljinder Peng MD AMOXICILLIN-POT CLAVULANATE 875-125 MG TABS one po bid 5 AMOXICILLIN-PO T CLAVULANATE 03411509167 Baljinder Peng MD AMOXICILLIN 875 MG TABS 1 by mouth twice a day 3 AMOXICILLIN 74611936678 Baljinder Peng MD VIIBRYD 40 MG TABS Take 1 tablet by mouth daily at bedtime 1 VILAZODONE HCL 96622505789 Shireen Fernandes PERCOCET 5-325 MG TABS 1 tablet every 4 hours as needed 1 OXYCODONE-ACET AMINOPHEN 03728116784 Shireen Fernandes [facility] OMEPRAZOLE 20 MG TBDD Take 1 tablet by mouth daily at bedtime 1 OMEPRAZOLE 24222595894 Shireen Fernandes NEURONTIN 300 MG CAPS Take 1 tablet by mouth daily at bedtime as needed 1 GABAPENTIN 63565568168 Shireen Fernandes GLUCOPHAGE 1000 MG ORAL TABLET Take one (1) tablet by mouth twice a day 1 METFORMIN HCL 53241756163 Shireen Fernandes COLACE 100 MG CAPS Take one (1) tablet by mouth twice a day as needed DOCUSATE SODIUM 00764109121 Shireen Fernandes BISOPROLOL FUMARATE 5 MG TABS Take 1 tablet by mouth daily BISOPROLOL FUMARATE 06458547942 Shireen Fernandes ADULT ASPIRIN REGIMEN 81 MG ORAL TABLET DELAYED RELEASE Take one (1) tablet by mouth twice a day ASPIRIN 86600652410 Shireen Fernandes AMOXICILLIN 875 MG TABS Take one (1) tablet by mouth twice a day AMOXICILLIN 65494724679 Shireen Fernandes BISOPROLOL FUMARATE 5 MG TABS 1 tab daily BISOPROLOL FUMARATE 56971067679 Shireen Fernandes ELIQUIS 2.5 MG TABS 1 tab, BID APIXABAN 85643510661 Shireen Fernandes [facility] IRON 325 (65 Fe) MG TABS 1 tab daily FERROUS SULFATE 71885345434 Shireen Fernandes GLUCOPHAGE 1000 MG ORAL TABLET 1 tab, BID METFORMIN HCL 18681031317 Shireen Fernandes EQ OMEPRAZOLE 20 MG TBEC 1 tab, at bedtime OMEPRAZOLE 61214113777 Shireen Fernandes VIIBRYD 40 MG TABS 1 tab, at bedtime VILAZODONE HCL 54312238146 Shireen Fernandes NOVOLOG MIX 70/30 FLEXPEN (70-30) 100 UNIT/ML SUPN Takes 20 units at breakfast and 6 units at dinner INSULIN ASPART PROT & ASPART 44663832757 Shireen Fernandes SPIRIVA HANDIHALER 18 MCG CAPS Takes two inhalations daily TIOTROPIUM BROMIDE MONOHYDRATE 54521071225 Shireen Fernandes MOTRIN IB 200 MG TABS Takes 400mg every 6 hours for pain as needed. IBUPROFEN 69485156513 Shireen Fernandes CEFTRIAXONE SODIUM Rocephin 2G IV [id number] RIDGE(Caretender s administers at [place])/[facility] dose, labs, PICC care 3 CEFTRIAXONE SODIUM Jayla W MOTRIN IB 200 MG TABS Takes 400mg every 6 hours for pain as needed. 5 IBUPROFEN 50958465244 May Munoz SPIRIVA HANDIHALER 18 MCG CAPS Takes two inhalations daily 5 TIOTROPIUM BROMIDE MONOHYDRATE 49175661233 May Munoz NOVOLOG MIX 70/30 FLEXPEN (70-30) 100 UNIT/ML SUPN Takes 20 units at breakfast and 6 units at dinner INSULIN ASPART PROT & ASPART 49246477063 May Munoz COLACE 100 MG CAPS 1 cap, PRN, BID 1 DOCUSATE SODIUM 41926682250 May Munoz PERCOCET 5-325 MG TABS 1 tab, PRN, Q4H 1 OXYCODONE-ACET AMINOPHEN 65971110228 May Munoz CEFTRIAXONE SODIUM Rocephin 2G IV [id number] RIDGE(Caretender s administers at [place])/[facility] dose, labs, PICC care 3 CEFTRIAXONE SODIUM Ban Potts RN CEFTRIAXONE SODIUM Rocephin 2G IV [id number] RS/[facility]AL [facility]IL [facility] 3 CEFTRIAXONE SODIUM Ban Potts RN VIIBRYD 40 MG TABS 1 tab, at bedtime 1 VILAZODONE HCL 29467696249 Shireen Fernandes PERCOCET 5-325 MG TABS 1 tab, PRN, Q4H 1 OXYCODONE-ACET AMINOPHEN 42737049929 Shireen Fernandes EQ OMEPRAZOLE 20 MG TBEC 1 tab, at bedtime 1 OMEPRAZOLE 15924799991 Shireen Fernandes GLUCOPHAGE 1000 MG ORAL TABLET 1 tab, BID 1 METFORMIN HCL 03896789056 Shireen Fernandes [facility] IRON 325 (65 Fe) MG TABS 1 tab daily FERROUS SULFATE 54258827147 Shireen Fernandes ELIQUIS 2.5 MG TABS 1 tab, BID APIXABAN 82123443096 Shireen Fernandes COLACE 100 MG CAPS 1 cap, PRN, BID DOCUSATE SODIUM 90682681478 Shireen Fernandes BISOPROLOL FUMARATE 5 MG TABS 1 tab daily BISOPROLOL FUMARATE 93917953054 Shireen Fernandes Medications Administered No information available. Allergies, Adverse Reactions, Alerts No information available. Results Date Name Value Unit Range Flag Description Clinical Lists Update: Prelo ad HGBA1C 10.7 % Hemoglobin A1c/Hemoglobin, total in Blood - % External Other: Patient port al update - Email Push, [employer] ... PAT E-MAIL [email or web address] patient's e-mail address External Other: Patient port al update - EmailStatus, [facility] ... PATPORTALPIN Active This deena l be [...] Name Date Entry Date CPT-sl STAT Labs [id number] CBC with Differential 2019 CPT-83725 Sedimentation Rate (ESR) 202 CPT-89644 C- reactive protein CPT-06053 CMP CPT-sl STAT Labs CPT-sl STAT Labs CPT-13281 CMP [id number] CBC with Differential 2019 CPT-55922 C- reactive protein CPT-56445 Sedimentation Rate (ESR) 202 CPT-sl STAT Labs CPT-sl STAT Labs CPT-07427 CMP [id number] CBC with Differential 2019 CPT-46639 C- reactive protein CPT-88071 Sedimentation Rate (ESR) 202 CPT- stat weekly [...]
--- OUTSIDE RECORDS SUMMARY | 2025-05-08 14:08 | XMS_ITS | Encounter Summary ---
Author Organization [employer] ([place], [place], [place], [place]) Address [address] [place] [address] Care Team Providers Care Steam Cleaning Machine Operator Name Role Phone Alfredo Aguiar MD Primary Care Provider + [phone] Alfredo Aguiar MD Primary Care Provider + [phone] Encounter Details Date Type Department Care Team (Late st Contact Info) Description 08/17/2019 Transcribed Document [facility] [place] [facility] [place] [address] ProviderEryn MD [address] [place] [address] Social History Tobacco Use Types Packs/Day Years Used Date Smoking Tobacco: Never Assessed Sex and Gender Information Value Date Recorded Sex Assigned at Not on file Legal Sex Male 5:45 PM CDT Gender Identity Not on file Sexual Orientation Not on file documented as of this encounter Miscellaneous Notes * Cerner Conversion Note - Eryn Arcos MD - 08/17/2019 11:25 AM PHARMACY BUYER Procedural Documentation Entered On: 08/17/2019 11:48 EST [...] Anesthesiologist Procedure Case Attendee Role 2 : gifts officer Case Attendee 2 : EVAN Drake RN Procedure Case Attendee Role 3 : gifts officer Case Attendee 3 : CASIE BAE RN [...] 08/17/2019 11:54 EST Electronically signed by Wellington [facility] Conversion Delivery Specialist Cerner at 11/18/2022 9:27 AM CDT documented in this encounter Plan of Treatment Not on file documented as of this encounter Visit Diagnoses Not on filedocumented in this encounter Care Teams Steam Cleaning Machine Operator Relationship Specialty Start Date End Date Alfredo Aguiar MD [address] [place] [address] PCP - General Adolescent Medicine 10/16/22 10/19/22 Alfredo Aguiar MD [address] [place] [address] PCP - General Adolescent Medicine 10/20/22 documented as of this encounter
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
--- OUTSIDE RECORDS SUMMARY | 2025-05-08 14:08 | XMS_ITS | Encounter Summary ---
Author Organization [employer] ([place], [place], [place], [place]) Address [address] [place] [address] Care Team Providers Care Nursing Director Name Role Phone Alfredo Aguiar MD Primary Care Provider + [phone] Alfredo Aguiar MD Primary Care Provider + [phone] Encounter Details Date Type Department Care Team (Late st Contact Info) Description 05/20/2019 Transcribed Document [facility] [place] [facility] [place] [address] ProviderEryn MD [address] [place] [address] Social History Tobacco Use Types Packs/Day Years Used Date Smoking Tobacco: Never Assessed Sex and Gender Information Value Date Recorded Sex Assigned at Not on file Legal Sex Male 5:45 PM CDT Gender Identity Not on file Sexual Orientation Not on file documented as of this encounter Miscellaneous Notes * Cerner Conversion Note - Eryn Arcos MD - 05/20/2019 2:15 PM CDT [facility] Main OR PACU Summary Primary Physician: LION DAVIS MD-ORT Finalized Date/Time: 05/20/19 19:06:07 Pt. Name: LORA JAIN JR/Sex: 1940 Male Med Rec #: [id number] Physician: LION DAVIS MD-ORT Financial #: [id number] Pt. Type: I Room/Bed: ASA/2 Admit/Disch: 05/20/19 06:54:00 - Institution: [facility] Main OR PACU I Case Times Entry 1 In PACU I 05/20/19 16:57:00 Ready for PACU 05/20/19 18:30:00 Discharge Discharge from PACU 05/20/19 19:03:00 I Last Modified By: Betty Vaz RN 05/20/19 19:04:04 [facility] Main OR PACU Acuity Entry 1 Start Time 05/20/19 18:30:00 Stop Time 05/20/19 19:03:00 Acuity Level [facility] PACU Acuity I Last Modified By: Betty Vaz RN 05/20/19 19:06:05 Finalized By: Betty Vaz RN Document Signatures Signed By: Betty Vaz RN 05/20/19 19:06 Electronically signed by Wellington [facility] Conversion Home Health Travel Pt Cerner at 11/18/2022 9:13 AM CDT documented in this encounter Plan of Treatment Not on file documented as of this encounter Visit Diagnoses Not on filedocumented in this encounter Care Teams Nursing Director Relationship Specialty Start Date End Date Alfredo Aguiar MD [address] [place] [address] PCP - General Adolescent Medicine 10/16/22 10/19/22 Alfredo Aguiar MD [address] [place] [address] PCP - General Adolescent Medicine 10/20/22 documented as of this encounter
--- OUTSIDE RECORDS SUMMARY | 2025-05-08 14:08 | XMS_ITS | Encounter Summary ---
Author Organization [employer] ([place], [place], [place], [place]) Address [address] [place] [address] Care Team Providers Care Analyst Programmer Name Role Phone Alfredo Aguiar MD Primary Care Provider + [phone] Alfredo Aguiar MD Primary Care Provider + [phone] Encounter Details Date Type Department Care Team (Late st Contact Info) Description 08/18/2019 Transcribed Document [facility] [place] [facility] [place] [address] ProviderEryn MD [address] [place] [address] Social History Tobacco Use Types Packs/Day Years Used Date Smoking Tobacco: Never Assessed Sex and Gender Information Value Date Recorded Sex Assigned at Not on file Legal Sex Male 5:45 PM CDT Gender Identity Not on file Sexual Orientation Not on file documented as of this encounter Miscellaneous Notes * Cerner Conversion Note - Eryn Arcos MD - 08/18/2019 8:09 AM ELECTRONIC EQUIPMENT SET UP OPERATOR Patient: LORA JAIN JR Age: 78 Years Sex: Male : 1940 Assessment/Plan Likely discharge tomorrow. Retained Hemovac and incisional VAC. Normal PT protocol otherwise. ID has recommended Rocephin in-house. Waiting on recommendation for type and duration of therapy after discharge. Patient plans to discharge to [facility] for closer inpatient rehabilitation due to no [...] been weightbearing since May 2019. They request senior care facility. Vital Signs T: 36.4 ??C TMIN: [...] # 0.24 x10(3)/uL (Low) 08/18/2019 02:40 EST [place] % 9.6 % (High) 08/18/2019 02:40 EST [place] # 0.75 K/uL 08/18/2019 02:40 EST Eos [...] 08/17/2019 11:19 EST Electronically signed by Interface, [facility] Conversion Game Design Instructor Cerner at 11/18/2022 9:37 AM CDT documented in this encounter Plan of Treatment Not on file documented as of this encounter Visit Diagnoses Not on filedocumented in this encounter Care Teams Analyst Programmer Relationship Specialty Start Date End Date Alfredo Aguiar MD [address] [place] [address] PCP - General Adolescent Medicine 10/16/22 10/19/22 Alfredo Aguiar MD [address] [place] [address] PCP - General Adolescent Medicine 10/20/22 documented as of this encounter
--- OUTSIDE RECORDS SUMMARY | 2025-05-08 14:08 | XMS_ITS | Clinical Summary ---
Author Organization [facility] yste Address [address] [place] [address] Care Team Providers Care Mangle Catcher Name Role Phone Provider, No Known Primary [...] (1 - 1- dose 75+ series) 2013 INFLUENZA VACCINE 03/03/2025 04/22/2019 COVID-19 Vaccine (1 - 2023-2 5 season) 2025 ZOSTER VACCINE Completed 11/09/2018, 04/02/2018 HEMOGLOBIN A1C Discontinued 02/01/2025, 10/01, 06/14/2024, Additional history exists Insurance MEDICARE A & B [facility] Care Teams Mangle Catcher Relationship Specialty Start Date End Date Provider, No Known [facility] [place] [address] PCP - General 06/23/19
--- OUTSIDE RECORDS SUMMARY | 2025-05-08 14:08 | XMS_ITS | Referral Summary ---
Author Organization [employer] ([place], [place], [place], [place]) Address [address] [place] [address] Care Team Providers Care Production Estimator Name Role Phone Alfredo Aguiar MD Primary Care Provider [phone] Allergies No known active allergies Medications lisinopriL [...] Date Devin rded Speak language other than Vincentian at home Not on file 08/21/2023 Want [...] Plan of Treatment Not on file Insurance [place]ICARE [place] [place] [address] FOR LIFE Advance Directives For more information, please contact: [phone] * Full Code (Latest Code Status on File) Date Activated Date Inactivated Comments 10/15/2022 10:17 PM 10/16/2022 7:32 PM Care Teams Production Estimator Relationship Specialty Start Date End Date Alfredo Aguiar MD [address] [place] [address] PCP - General Adolescent Medicine 10/20/22
--- OUTSIDE RECORDS SUMMARY | 2025-05-08 14:08 | XMS_ITS | Encounter Summary ---
Author Organization [employer] ([place], [place], [place], [place]) Address [address] [place] [address] Care Team Providers Care Director Call Center Sales Name Role Phone Alfredo Aguiar MD Primary Care Provider + [phone] Alfredo Aguiar MD Primary Care Provider + [phone] Encounter Details Date Type Department Care Team (Late st Contact Info) Description 08/17/2019 Transcribed Document [facility] Family Medicine [facility] [place] [address] ProviderEryn MD [address] [place] [address] Social History Tobacco Use Types Packs/Day Years Used Date Smoking Tobacco: Never Assessed Sex and Gender Information Value Date Recorded Sex Assigned at Not on file Legal Sex Male 5:45 PM CDT Gender Identity Not on file Sexual Orientation Not on file documented as of this encounter Miscellaneous Notes * Cerner Conversion Note - Eryn ProviderMD - 08/17/2019 2:00 AM OWNER CONSULTING ENGINEER Spiritual Care Assessment Entered On: 08/17/2019 11:57 EST Performed On: 08/17/2019 11:15 EST by ART KENNEDY [facility] Comment/Summary Points : Provided pre-surgery visit and prayer. ART KENNEDY - 08/17/2019 11:56 EST Spiritual Assessment Spirital Assessment Comment/Summary Report : SPIRITUAL ASSESSMENT COMMENT/SUMMARY No qualifying data available. ART KENNEDY - 08/17/2019 11:56 EST Electronically signed by [facility] Conversion Dedicated Regional Driver Cerner at 11/18/2022 9:31 AM CDT documented in this encounter Plan of Treatment Not on file documented as of this encounter Visit Diagnoses Not on filedocumented in this encounter Care Teams Director Call Center Sales Relationship Specialty Start Date End Date Alfredo Aguiar MD [address] [place] [address] PCP - General Adolescent Medicine 10/16/22 10/19/22 Alfredo Aguiar MD [address] [place] [address] PCP - General Adolescent Medicine 10/20/22 documented as of this encounter
--- OUTSIDE RECORDS SUMMARY | 2025-05-08 14:08 | XMS_ITS | Encounter Summary ---
Author Organization [employer] ([place], [place], [place], [place]) Address [address] [facility] [place] [address] Care Team Providers Care Mine Safety Manager Name Role Phone Alfredo Aguiar MD Primary Care Provider + [phone] Alfredo Aguiar MD Primary Care Provider + [phone] Encounter Details Date Type Department Care Team (Late st Contact Info) Description 08/18/2019 Transcribed Document [facility] [address] [place] [address] Massimo Butterfield MD [address] [place] [id number] Social History Tobacco Use Types Packs/Day [...] bed. He is awaiting a bed at [facility] in [place] for rehab at discharge. No cough, fever/chills, n/v or dysuria. Bowels have not yet moved but patient reports passing gas. HPI: Patient is an 78 yo male admitted to [facility] per Dr. 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
--- OUTSIDE RECORDS SUMMARY | 2025-05-08 14:08 | XMS_ITS | Encounter Summary ---
Author Organization [employer] ([place], [place], [place], [place]) Address [address] [place] [address] Care Team Providers Care Labour Market Economist Name Role Phone Alfredo Aguiar MD Primary Care Provider + [phone] Alfredo Aguiar MD Primary Care Provider + [phone] Encounter Details Date Type Department Care Team (Late st Contact Info) Description 08/17/2019 Transcribed Document [facility] [place] [address] ProviderEryn MD [address] [place] [address] Social History Tobacco Use Types Packs/Day Years Used Date Smoking Tobacco: Never Assessed Sex and Gender Information Value Date Recorded Sex Assigned at Not on file Legal Sex Male 5:45 PM CDT Gender Identity Not on file Sexual Orientation Not on file documented as of this encounter Miscellaneous Notes * Cerner Conversion Note - Eryn Arcos MD - 08/17/2019 2:22 PM CHANNEL PROGRAM MANAGER [facility] Main OR IntraOp Summary Primary Physician: LION DAVIS MD-ORT Finalized Date/Time: 08/18/19 11:58:04 Pt. Name: LORA JAIN JR/Sex: 1940 Male Med Rec #: [id number] Physician: LION DAVIS MD-ORT Financial #: [id number] Pt. Type: I Room/Bed: 4/1 Admit/Disch: 08/17/19 07:12:00 - Institution: [facility] IntraOp Case Attendance Entry 1 Entry 2 Entry 3 Case Attendee LION DAVIS BARNES, DEVON, COURTNEY-Ashanti Marrufo RN MD-ORT Role Performed Surgeon/Proceduralist, POST FRAMER/Nurse [employer] French Teacher Gatehouse Attendant, First First Time In 08/17/19 13:43:00 08/17/19 [...] BRADLEY, PA-ORElizabeth Role Performed Scrub, First Physician assistant signal maintainer POST FRAMER/Nurse [employer] French Teacher Time In 08/17/19 13:43:00 08/17/19 13:43:00 08/17/19 [...] PARRA CRNA Parker, Gwendolyn, Rn Role Performed POST FRAMER/Nurse [employer] School French Teacher Gatehouse Attendant, First Time In 08/17/19 16:05:00 08/17/19 16:20:00 Time Out 08/17/19 17:03:00 08/17/19 17:03:00 Procedure Knee Total Joint Knee Total Joint Revision(Left) Revision(Left) Other Attendee RELIEF Superficial Wound Closed By: Last Modified By: Faina Fernandes Rn Parker, Gwendolyn, Rn 08/17/19 17:08:20 08/17/19 17:08:20 [facility] IntraOp Case Attendance Audit 08/17/19 17:08:20 Equipment Service Associate: AMOSNARL Modifier: JACK 1 <+> Time Out [...] Procedure Knee Total Joint Revision(Left) 08/17/19 16:22:08 Equipment Service Associate: MAYNARL Modifier: MAYNARL 3 <+> Time Out 3 <*> Procedure Knee Total Joint Revision(Left) 08/17/19 16:20:54 Equipment Service Associate: MAYNARL Modifier: MAYNARL <+> 8 Case Attendee <+> 8 Role Performed <+> 8 Time In <+> 8 Procedure <+> 8 Other Attendee 08/17/19 16:07:45 Equipment Service Associate: MAYNARL Modifier: MAYNARL 6 <+> Time Out 6 <*> Procedure Knee Total Joint Revision(Left) <+> 7 Case Attendee <+> 7 Role Performed <+> 7 Time In <+> 7 Procedure 08/17/19 15:08:45 Equipment Service Associate: MAYNARL Modifier: MAYNARL 1 <*> Procedure Knee [...] <+> 6 Time In <+> 6 Procedure [facility] IntraOp Case Times Entry 1 Patient In Room Time 08/17/19 13:43:00 Out Room Time 08/17/19 17:03:00 Anesthesia Start Time 08/17/19 13:43:00 Stop Time 08/17/19 17:03:00 Surgery / Procedure Times Start Time 08/17/19 14:22:00 Stop Time 08/17/19 16:49:00 Last Modified By: Faina Fernandes Rn 08/17/19 17:08:16 [facility] IntraOp Case Times Audit 08/17/19 17:08:16 Equipment Service Associate: MADISON Modifier: MEETARKER <+> 1 Out Room Time <+> 1 Stop Time <+> 1 Stop Time 08/17/19 14:25:02 Equipment Service Associate: MADISON Modifier: MADISON <+> 1 Start Time [facility] IntraOp Cautery Entry 1 ESU Identification Cautery Type Monopolar ESU ID Number [id number] ID Type Hospital Number Cautery Settings Cut Setting 50 Coag Setting 50 ESU Grounding Pad Ground Pad Type Adult Grounding Pad Site Right thigh Grounding Pad Ashanti Bolaños RN Applied By Grounding Pad Site Warm, dry and intact Skin Condition Before Cautery Grounding Pad Site Unchanged Skin Condition After Cautery Last Modified By: Ashanti Bolaños RN 08/17/19 13:51:01 [facility] IntraOp Communication Entry 1 Entry 2 Entry 3 Communication To Family/Significant other Family/Significant other Family/Significant other Comment START UPDATE CLOSING Communication By Ashanti Bolaños RN Maynard, Leanne, Ashanti Kuo RN Date and Time 08/17/19 14:25:00 08/17/19 15:29:00 08/17/19 16:13:00 Last Modified By: Ashanti Bolaños RN Maynard, Leanne, RN Maynard, Leanne, RN 08/17/19 14:25:11 08/17/19 15:29:58 08/17/19 16:13:07 [facility] IntraOp Communication Audit 08/17/19 16:13:07 Equipment Service Associate: MADISON Modifier: MADISON <+> 3 Communication By <+> 3 Date and Time <+> 3 Communication To <+> 3 Comment 08/17/19 15:29:58 Equipment Service Associate: MADISON Modifier: MADISON <+> 2 Communication By <+> 2 Date and Time <+> 2 Communication To <+> 2 Comment [facility] IntraOp Counts Verification Entry 1 Procedure Knee Total Joint Revision(Left) Count Info Count Type Sponge, Sharps, Miscellaneous Counts Verification Baseline/pre-procedure Sequence Count Results Not Applicable Counts Performed By Count Performed By Mitra Frazier ST (Scrub) Count Performed By Ashanti Bolaños RN (RN) Last Modified By: Ashanti Bolaños RN 08/17/19 13:50:33 [facility] IntraOp Counts Final Entry 1 Procedure Knee Total Joint Revision(Left) Final Count Info Count Type Sponge, Sharps, Miscellaneous Counts Verification Skin Closure/end of Sequence procedure Count Results Correct, surgeon notified Counts Performed By Count Performed By Mitra Frazier ST (Scrub) Count Performed By Ashanti Bolaños RN (RN) Last Modified By: Ashanti Bolaños RN 08/17/19 16:20:42 [facility] IntraOp Cultures and Spec Summary Entry 1 Cultrures and Specimens Specimen Ordered: Yes Test(s) Routine/Path-Lab Requested/Final Disposition Last Modified By: Ashanti Bolaños RN 08/17/19 13:51:07 [facility] IntraOp Departure from OR Entry 1 Integumentary Assessment Integumentary WDL Assessment WDL Transfer/Handoff Transfer to PACU Phase I Handoff Method Bedside/Face to face, Phone call Post-op Transport Stretcher/Calrrosie Via Patient Transport BRAEDEN MEIER NA, Accompanied by NINOSKA LOUIE PA-ORElizabeth Last Modified By: Ashanti Bolaños RN 08/17/19 15:08:54 [facility] IntraOp Departure from OR Audit 08/17/19 15:08:54 Equipment Service Associate: MADISON Modifier: MADISON 1 <*> Patient Transport Accompanied by LISBETH BRYANT CRNA-ANS [facility] IntraOp Drains and Tubes Entry 1 Device Type Hemovac Size MEDIUM Drain/Tube Activity Inserted Device Location LEFT KNEE Tube Dressing Dry, Intact Condition Last Modified By: Ashanti Bolaños RN 08/17/19 16:21:16 [facility] IntraOp Dressing and Packing Entry 1 Type Dressing Location OPSITE Last Modified By: Ashanti Bolaños RN 08/17/19 14:27:31 [facility] IntraOp Fire Risk Assessment Entry 1 [...] Modified By: Ashanti Bolaños RN 08/17/19 13:50:35 [facility] IntraOp Fire Risk Assessment Audit 08/17/19 13:50:35 Equipment Service Associate: MADISON Modifier: MAYNARL <+> 1 Fire Risk Assessment Verified By 08/17/19 13:49:49 Equipment Service Associate: MADISON Modifier: MAYNARL <+> 1 Surgical Site or Incision Above the Xyphoid <+> 1 Open O2 Source (Mask or Cannula) <+> 1 Available Ignition (ESU, Laser, Light Source) <+> 1 Fire Risk Assessment Score <+> 1 Fire Risk Assessment Complete <+> 1 Standard Fire Safety Precautions Followed [facility] IntraOp General Case Finish Filer 1 Case Information OR OR 04 [facility] Case Level 1 Room Verified Yes Wound Class I - Clean Specialty SN Orthopedic ASA Class 3 Diagnosis Preop Diagnosis [id number] Postop Diagnosis SEE DOCTOR'S POST OP NOTES Last Modified By: Ashanti Bolaños RN 08/17/19 14:16:30 [facility] IntraOp General Case Data Audit 08/17/19 14:16:30 Equipment Service Associate: MADISON Modifier: MAYNARL <+> 1 Room Verified 08/17/19 14:16:05 Equipment Service Associate: MADISON Modifier: MAYNARL <+> 1 Preop Diagnosis <+> 1 Postop Diagnosis [facility] IntraOp Implant Log Entry 1 Entry 2 Entry 3 Type Implant (Synthetic) Implant (Synthetic) Implant (Synthetic) Implant Log Implant Type Other Bone Cement Hardware Tissue Implant Type Implant PUTY OSTEOBST BN VD CEMENT BONE SMPLX HV FEM DIST AUG SZ 6 Identification FILL [id number] Description Implant Quantity 1 3 1 Implant Site LEFT KNEE LEFT KNEE LEFT KNEE Implant Identification Model Number Implant [id number] Identification Serial Number Implant [id number] Identification Lot Number Implant [employer] Breana:Breana Blancoyker:Coin Identification Orthopaedics Orthopaedics Timber Harvester Operator Name: Implant [id number] Identification Catalog Number Implant Size Implant Has an Yes Yes Yes Expiration Date Implant Expiration 12/31/21 09/30/20 07/22/23 Date Wasted Radioactive Material Time Implanted Tissue Implant Continue for Tissue Implant Documentation Tissue Identification Number Graft Prep Per Timber Harvester Operator Instructions: Tissue Preparation Method: Reconstitution Solution: Reconstitution Solution Lot Number Reconstitution Solution Expiration Date: Thawing Solution Thawing Solution Lot Number Thawing Solution Expiration Date Preparation Materials, Other Preparation Materials, Other Lot Number Preparation Materials, Other Expiration Date Tissue Prepared/Processed By Timber Harvester Operator Paperwork Completed Implant Type Comment Last Modified By: Ashanti Bolaños RN Maynard, Leanne, RN Maynard, Leanne, RN 08/17/19 14:29:54 08/17/19 16:03:49 08/17/19 16:09:54 Entry 4 Entry 5 Entry 6 Type Implant (Synthetic) Implant (Synthetic) Implant (Synthetic) Implant Log Implant Type Hardware Hardware Hardware Tissue Implant Type Implant STEM FLUTED TRIATH FEM POST AUG TRI SZ 6 COMP FEM TRI TS SZ 6 Identification [id number] [id number] Description Implant Quantity 1 1 1 Implant Site LEFT KNEE LEFT KNEE LEFT KNEE Implant Identification Model Number Implant Identification Serial Number Implant [id number] Identification Lot Number Implant Breana:Breana Coin:Coin Coin:Breana Identification Orthopaedics Orthopaedics Orthopaedics Timber Harvester Operator Name: Implant [id number] Identification Catalog Number Implant Size Implant Has an Yes Yes Yes Expiration Date Implant Expiration 06/16/23 09/12/23 08/04/23 Date Wasted Radioactive Material Time Implanted Tissue Implant Continue for Tissue Implant Documentation Tissue Identification Number Graft Prep Per Timber Harvester Operator Instructions: Tissue Preparation Method: Reconstitution Solution: Reconstitution Solution Lot Number Reconstitution Solution Expiration Date: Thawing Solution Thawing Solution Lot Number Thawing Solution Expiration Date Preparation Materials, Other Preparation Materials, Other Lot Number Preparation Materials, Other Expiration Date Tissue Prepared/Processed By Timber Harvester Operator Paperwork Completed Implant Type Comment Last Modified By: Ashanti Bolaños RN Maynard, Leanne, RN Maynard, Leanne, RN 08/17/19 15:59:02 08/17/19 16:03:49 08/17/19 16:03:49 Entry 7 Entry 8 Entry 9 Type Implant (Synthetic) Implant (Synthetic) Implant (Synthetic) Implant Log Implant Type Hardware Hardware Hardware Tissue Implant Type Implant STEM FLUTED 16MM 100MM BASEPLT TRIATHLON TS EXT STEM 25MM-[id number] Identification -[id number] Description Implant Quantity 1 1 1 Implant Site LEFT KNEE LEFT KNEE LEFT KNEE Implant Identification Model Number Implant Identification Serial Number Implant [id number] Identification Lot Number Implant Breana:Breana Breana:Coin Breana:Breana Identification Orthopaedics Orthopaedics Orthopaedics Timber Harvester Operator Name: Implant [id number] Identification Catalog Number Implant Size Implant Has an Yes Yes Yes Expiration Date Implant Expiration 08/11/23 04/09/24 05/10/24 Date Wasted Radioactive Material Time Implanted Tissue Implant Continue for Tissue Implant Documentation Tissue Identification Number Graft Prep Per Timber Harvester Operator Instructions: Tissue Preparation Method: Reconstitution Solution: Reconstitution Solution Lot Number Reconstitution Solution Expiration Date: Thawing Solution Thawing Solution Lot Number Thawing Solution Expiration Date Preparation Materials, Other Preparation Materials, Other Lot Number Preparation Materials, Other Expiration Date Tissue Prepared/Processed By Timber Harvester Operator Paperwork Completed Implant Type Comment Last Modified By: Ashanti Bolaños RN Maynard, Leanne, RN Maynard, Leanne, RN 08/17/19 16:03:49 08/17/19 16:03:49 08/17/19 16:03:49 Entry 10 Entry 11 Type Implant (Synthetic) Implant (Synthetic) Implant Log Implant Type Hardware Hardware Tissue Implant Type Implant TIB SYM CON [id number] TIB PS X3 ??#5 Identification [id number] Description Implant Quantity 1 1 Implant Site LEFT KNEE LEFT KNEE Implant Identification Model Number Implant Identification Serial Number Implant [id number] Identification Lot Number Implant Coin:Breana Breana:Breana Identification Orthopaedics Orthopaedics Timber Harvester Operator Name: Implant [id number] Identification Catalog Number Implant Size Implant Has an Yes Yes Expiration Date Implant Expiration 06/06/24 10/04/22 Date Wasted Radioactive Material Time Implanted Tissue Implant Continue for Tissue Implant Documentation Tissue Identification Number Graft Prep Per Timber Harvester Operator Instructions: Tissue Preparation Method: Reconstitution Solution: Reconstitution Solution Lot Number Reconstitution Solution Expiration Date: Thawing Solution Thawing Solution Lot Number Thawing Solution Expiration Date Preparation Materials, Other Preparation Materials, Other Lot Number Preparation Materials, Other Expiration Date Tissue Prepared/Processed By Timber Harvester Operator Paperwork Completed Implant Type Comment Last Modified By: Ashanti Bolaños RN Maynard, Leanne, RN 08/17/19 16:03:49 08/17/19 16:03:49 [facility] IntraOp Implant Log Audit 08/17/19 16:09:54 Equipment Service Associate: MADISON Modifier: MADISON <+> 11 Implant Identification Description <+> 11 Implant Identification Lot Number <+> 11 Implant Identification Timber Harvester Operator Name: <+> 11 Implant Expiration Date <+> 11 Implant Site <+> 11 Implant Quantity <+> 11 Implant Identification Catalog Number <+> 11 Implant Type <+> 11 Implant Has an Expiration Date <+> 11 Type 08/17/19 16:03:49 Equipment Service Associate: MADISON Modifier: MADISON <+> 3 Implant Identification Description <+> 3 Implant Identification Lot Number <+> 3 Implant Identification Timber Harvester Operator Name: <+> 3 Implant Expiration Date <+> 3 Implant Site <+> 3 Implant Quantity <+> 3 Implant Identification Catalog Number <+> 3 Implant Type <+> 3 Implant Has an Expiration Date <+> 3 Type <+> 4 Implant Identification Description <+> 4 Implant Identification Lot Number <+> 4 Implant Identification Timber Harvester Operator Name: <+> 4 Implant Expiration Date <+> 4 Implant Site <+> 4 Implant Quantity <+> 4 Implant Identification Catalog Number <+> 4 Implant Type <+> 4 Implant Has an Expiration Date <+> 4 Type <+> 5 Implant Identification Description <+> 5 Implant Identification Lot Number <+> 5 Implant Identification Timber Harvester Operator Name: <+> 5 Implant Expiration Date <+> 5 Implant Site <+> 5 Implant Quantity <+> 5 Implant Identification Catalog Number <+> 5 Implant Type <+> 5 Implant Has an Expiration Date <+> 5 Type <+> 6 Implant Identification Description <+> 6 Implant Identification Lot Number <+> 6 Implant Identification Timber Harvester Operator Name: <+> 6 Implant Expiration Date <+> 6 Implant Site <+> 6 Implant Quantity <+> 6 Implant Identification Catalog Number <+> 6 Implant Type <+> 6 Implant Has an Expiration Date <+> 6 Type <+> 7 Implant Identification Description <+> 7 Implant Identification Lot Number <+> 7 Implant Identification Timber Harvester Operator Name: <+> 7 Implant Expiration Date <+> 7 Implant Site <+> 7 Implant Quantity <+> 7 Implant Identification Catalog Number <+> 7 Implant Type <+> 7 Implant Has an Expiration Date <+> 7 Type <+> 8 Implant Identification Description <+> 8 Implant Identification Lot Number <+> 8 Implant Identification Timber Harvester Operator Name: <+> 8 Implant Expiration Date <+> 8 Implant Site <+> 8 Implant Quantity <+> 8 Implant Identification Catalog Number <+> 8 Implant Type <+> 8 Implant Has an Expiration Date <+> 8 Type <+> 9 Implant Identification Description <+> 9 Implant Identification Lot Number <+> 9 Implant Identification Timber Harvester Operator Name: <+> 9 Implant Expiration Date <+> 9 Implant Site <+> 9 Implant Quantity <+> 9 Implant Identification Catalog Number <+> 9 Implant Type <+> 9 Implant Has an Expiration Date <+> 9 Type <+> 10 Implant Identification Description <+> 10 Implant Identification Lot Number <+> 10 Implant Identification Timber Harvester Operator Name: <+> 10 Implant Expiration Date <+> 10 Implant Site <+> 10 Implant Quantity <+> 10 Implant Identification Catalog Number <+> 10 Implant Type <+> 10 Implant Has an Expiration Date <+> 10 Type 08/17/19 15:59:02 Equipment Service Associate: MADISON Modifier: MADISON 2 <*> Implant Identification Description CEMENT BONE SMPLX HV [id number] <*> Implant Quantity 2 [facility] IntraOp Intraoperative Assessment Entry 1 Handoff [...] Modified By: Ashanti Bolaños RN 08/17/19 13:51:19 [facility] IntraOp Intraoperative Equipment Entry 1 Type Equipment Equipment Equipment Dorinda Suction System ID Number [id number] Setting HIGH Intraop Monitoring Electrocardiogram Five lead placement (ECG) Electrode Placement Blood Pressure Non-Invasive BP Device Source Blood Pressure Arm, right upper Location Pulse Oximeter Hand, left Probe Site Antiembolic Devices Antiembolic Devices Sequential compression device, knee high Antiembolic Device Right Location Antiembolic Device [id number] ID Number Antiembolic Device HIGH Setting Scopes Photo/Video Documentation Last Modified By: Ashanti Bolaños RN 08/17/19 13:51:51 [facility] IntraOp Medication Admin Entry 1 Entry 2 Entry 3 Medication/Irrigant NEEL IRR NACL 0.9PCT NEEL IRR NACL 0.9PCT Bacitracin 50,00units 2000ML [id number] powder vial Combo Med List 1 - Combo Med 2 - Combo Med 1 - Combo Med Time Administered Route of IRRIGATION IRRIGATION ADDED TO IRRIGATION Administration Dose Dose Unit of Measure Volume Administered By LION DAVIS, LION DAVIS, LION DAVIS MD-ORT -ORT -ORT Procedure Irrigation Irrigant Volume In Irrigant [...] Modified By: Ashanti Bolaños RN 08/17/19 15:12:32 [facility] IntraOp Patient Positioning Entry 1 Procedure [...] Chest, Foot Rest Positioned By LION DAVIS MD-ORElizabeth, LISBETH BRYANT CRNA-CRYS, Ashanti Bolaños RN Position Verified Positioning Yes Verified by Anesthesia Positioning Yes Verified by Surgeon Last Modified By: Ashanti Bolaños RN 08/17/19 14:15:40 [facility] IntraOp Sign In Entry 1 Patient, [...] Modified By: Ashanti Bolaños RN 08/17/19 13:52:08 [facility] IntraOp Sign Out Entry 1 RN [...] Modified By: Faina Fernandes Rn 08/17/19 17:09:13 [facility] IntraOp Skin Prep Entry 1 Procedure Knee Total Joint Revision(Left) Prescribed N/A Pre-Surgical Prep Completed Prep Area LEFT CALF TO TOES CIRCUMFRENTIALLY Intraop Prep Integumentary WDL Assessment WDL Prep Agents Chlorhexidine gluconate/alcohol, Chloraprep, DuraPrep Prep by Ashanti Bolaños RN Hair Removal Methods No hair removal performed Last Modified By: Ashanti Bolaños RN 08/17/19 14:16:55 [facility] IntraOp Surgical Procedures Entry 1 Procedure Knee Total Joint Revision Modifiers Left Additional (LT TOTAL KNEE Procedure ARTHROPLASTY REVISION Description REPLANT) Primary Procedure Yes Primary Surgeon LION DAVIS MD-ORT Start 08/17/19 14:22:00 Stop 08/17/19 16:49:00 Anesthesia Type General Specialty SN Orthopedic Wound Class I - Clean Last Modified By: Faina Fernandes Rn 08/17/19 17:08:24 [facility] IntraOp Surgical Procedures Audit 08/17/19 17:08:24 Equipment Service Associate: MADISON Modifier: TANYANPARKER <+> 1 Stop 08/17/19 15:59:15 Equipment Service Associate: MADISON Modifier: MAYNARL <+> 1 Start [facility] IntraOp Temp Regulation Devices Entry 1 Temp Regulation Temperature Forced Air Warming Regulation Device device, Warm blankets Temperature 14823 Regulation Device Serial/Unit Number Temperature Upper body Regulation Site Temperature Device 43 DEGREES CELCIUS Setting Temperature Ashanti Bolaños RN Regulation Device Applied by Last Modified By: Ashanti Bolaños RN 08/17/19 14:16:26 [facility] IntraOP Time Out Entry 1 Procedure [...] Modified By: Ashanti Bolaños RN 08/17/19 14:22:41 [facility] IntraOp Tourniquet Entry 1 Type Pneumatic Serial/Unit Number [id number] Setting 300 mmHg Pheumatic Yes Tourniquet Checked Per Protocol Placement Calf, left Skin Protection - Yes Padded Under Cuff Applied By LION DAVIS MD-ORT Removed By NINOSKA LOUIE PA-ORT Times Start Time 08/17/19 14:22:00 Stop Time 08/17/19 16:31:00 Last Modified By: Faina Fernandes Rn 08/17/19 16:49:15 [facility] IntraOp Tourniquet Audit 08/17/19 16:49:15 Equipment Service Associate: MADISON Modifier: MEETARKER <+> 1 Stop Time Case Comments <None> Finalized By: MALVIN KENT Document Signatures Signed By: Faina Fernandes Rn 08/17/19 17:09 MALVIN KENT 08/18/19 11:58 Unfinalized History Date/Time Username Reason for Unfinalizing Freetext Reason for Unfinalizing 08/18/19 11:50 [id number] Correct Billing Electronically signed by [facility] Conversion Forecast Analyst Cerner at 11/18/2022 9:34 AM CDT documented in this encounter Plan of Treatment Not on file documented as of this encounter Visit Diagnoses Not on filedocumented in this encounter Care Teams Labour Market Economist Relationship Specialty Start Date End Date Alfredo Aguiar MD [address] [place] [address] PCP - General Adolescent Medicine 10/16/22 10/19/22 Alfredo Aguiar MD [address] [place] [address] PCP - General Adolescent Medicine 10/20/22 documented as of this encounter
--- OUTSIDE RECORDS SUMMARY | 2025-05-08 14:08 | XMS_ITS | Encounter Summary ---
Author Organization [employer] ([place], [place], [place], [place]) Address [address] [place] [address] Care Team Providers Care Amf Mechanic Name Role Phone Alfredo Aguiar MD Primary Care Provider + [phone] Alfredo Aguiar MD Primary Care Provider + [phone] Encounter Details Date Type Department Care Team (Late st Contact Info) Description 05/20/2019 Transcribed Document [facility] [place] [facility] [place] [address] ProviderEryn MD [address] [place] [address] Social History Tobacco Use Types Packs/Day Years [...] Anesthesiologist Procedure Case Attendee Role 2 : comparator operator Case Attendee 2 : EVAN Drake RN Procedure Case Attendee Role 3 : comparator operator Case Attendee 3 : Dalia Bernstein RN Reisner, Katie, RN - 05/20/2019 11:23 EDT Postprocedure Documentation [...] 05/20/2019 11:28 EDT Electronically signed by [facility] Conversion Stemhole Borer Cerner at 11/18/2022 9:25 AM CDT documented in this encounter Plan of Treatment Not on file documented as of this encounter Visit Diagnoses Not on filedocumented in this encounter Care Teams Amf Mechanic Relationship Specialty Start Date End Date Alfredo Aguiar MD [address] [place] [address] PCP - General Adolescent Medicine 10/16/22 10/19/22 Alfredo Aguiar MD [address] [place] [address] PCP - General Adolescent Medicine 10/20/22 documented as of this encounter
--- OUTSIDE RECORDS SUMMARY | 2025-05-08 14:08 | XMS_ITS | Encounter Summary ---
Author Organization [employer] ([place], [place], [place], [place]) Address [address] [place] [address] Care Team Providers Care Director Script Name Role Phone Alfredo Aguiar MD Primary Care Provider + [phone] Alfredo Aguiar MD Primary Care Provider + [phone] Encounter Details Date Type Department Care Team (Late st Contact Info) Description 08/18/2019 Transcribed Document [facility] [place] [facility] [place] [address] ProviderEryn MD [address] [place] [address] Social History Tobacco Use Types Packs/Day Years Used Date Smoking Tobacco: Never Assessed Sex and Gender Information Value Date Recorded Sex Assigned at Not on file Legal Sex Male 5:45 PM CDT Gender Identity Not on file Sexual Orientation Not on file documented as of this encounter Miscellaneous Notes * Cerner Conversion Note - Eryn ProviderMD - 08/18/2019 11:09 AM DIRECTOR PATIENT ACCOUNTING UM Authorization Entered On: 08/18/2019 11:09 EST Performed On: 08/18/2019 11:09 EST by Ethel Bowen Rn-Utilization Review Primary Insurance Authorization Authorization and Policy Numbers : Insurance 1 Health Plan: MEDICARE Policy Number: [id number] Authorization Number: Insurance 2 Health Plan: FOR LIFE Policy Number: [id number] Authorization Number: Insurance Primary Name : Medicare [id number] Authorized Service Begin Date-Primary : 08/17/2019 EST Historical Authorization Comments-Primary : Comment 1: pt scheduled as OUTPT for total knee on 08-17-2019 medicare: NPR (JASWANT PALMA, Rear Admiral 08/16/2019 13:25) Ethel Bowen, Rn-Utilization Review - 08/18/2019 11:09 EST Electronically signed by [place], [facility] Conversion Sports Marketing Coordinator Cerner at 11/18/2022 9:29 AM CDT documented in this encounter Plan of Treatment Not on file documented as of this encounter Visit Diagnoses Not on filedocumented in this encounter Care Teams Director Script Relationship Specialty Start Date End Date Alfredo Aguiar MD [address] [place] [address] PCP - General Adolescent Medicine 10/16/22 10/19/22 Alfredo Aguiar MD [address] [place] [address] PCP - General Adolescent Medicine 10/20/22 documented as of this encounter
--- OUTSIDE RECORDS SUMMARY | 2025-05-08 14:08 | XMS_ITS | Encounter Summary ---
Author Organization [email or web address] ([place], [place], [place], [place]) Address [address] [place] [address] Care Team Providers Care Analytical Research Chemist Name Role Phone Alfredo Aguiar MD Primary Care Provider + [phone] Alfredo Aguiar MD Primary Care Provider + [phone] Encounter Details Date Type Department Care Team (Late st Contact Info) Description 05/23/2019 Transcribed Document [facility] [place] Medicine [address] [place] [address] ProviderEryn MD [address] [place] [address] Social History Tobacco Use Types Packs/Day Years [...] on filedocumented in this encounter Care Teams Analytical Research Chemist Relationship Specialty Start Date End Date Alfredo Aguiar MD [address] [place] [address] PCP - General Adolescent Medicine 10/16/22 10/19/22 Alfredo Aguiar MD [address] [place] [address] PCP - General Adolescent Medicine 10/20/22 documented as of this encounter
--- OUTSIDE RECORDS SUMMARY | 2025-05-08 14:08 | XMS_ITS | Encounter Summary ---
Author Organization [email or web address] ([place], [place], [place], [place]) Address [address] [place] [address] Care Team Providers Care Log Brander Name Role Phone Alfredo Aguiar MD Primary Care Provider + [phone] Alfredo Aguiar MD Primary Care Provider + [phone] Encounter Details Date Type Department Care Team (Late st Contact Info) Description 08/04/2019 Transcribed Document [facility] [place] [facility] [place] [address] ProviderEryn MD [address] [place] [address] Social History Tobacco Use Types Packs/Day Years Used Date Smoking Tobacco: Never Assessed Sex and Gender Information Value Date Recorded Sex Assigned at Not on file Legal Sex Male 5:45 PM CDT Gender Identity Not on file Sexual Orientation Not on file documented as of this encounter Miscellaneous Notes * Cerner Conversion Note - Historical ProviderMD - 08/04/2019 3:35 PM WOODWORK TEACHER Event Note Entered On: 08/04/2019 15:37 EST Performed On: 08/04/2019 15:35 EST by Marta Zurita RN Event Note Description of Event : Pt having dental work done tomorrow and Thursday and expressed concern. Pt having a cracked crown replaced tomorrow, cavity filled on Thursday but that tooth may need extracted. Pt also expressed desire to return to [facility] in [place] after discharge. These concerns called to Jan at Dr. Allison's office. Also called and faxed labs, noting creatinine of 1.7. Marta Zurita RN - 08/04/2019 15:35 EST documented in this encounter Plan of Treatment Not on file documented as of this encounter Visit Diagnoses Not on filedocumented in this encounter Care Teams Log Brander Relationship Specialty Start Date End Date Alfredo Aguiar MD [address] [place] [address] PCP - General Adolescent Medicine 10/16/22 10/19/22 Alfredo Aguiar MD [address] [place] [address] PCP - General Adolescent Medicine 10/20/22 documented as of this encounter
--- OUTSIDE RECORDS SUMMARY | 2025-05-08 14:08 | XMS_ITS | Encounter Summary ---
Author Organization [employer] ([place], [place], [place], [place]) Address [address] [place] [address] Care Team Providers Care Laminating Machine Tender Name Role Phone Alfredo Aguiar MD Primary Care Provider + [phone] Alfredo Aguiar MD Primary Care Provider + [phone] Encounter Details Date Type Department Care Team (Late st Contact Info) Description 05/20/2019 Transcribed Document [facility] [address] [place] [address] Guillermina Allison MD [address] [place] [address] Social History Tobacco Use Types Packs/Day Years [...] of resorbable antibiotic cement beads, left knee. SHOTGUN SHELL REPRINTING UNIT OPERATOR: Pascual Bartlett. ANESTHESIA: General endotracheal anesthesia with femoral and sciatic nerve blocks. ESTIMATED BLOOD LOSS: 250 mL. COMPLICATIONS: Fracture of the proximal tibia sustained during explantation. This was essentially nondisplaced except for a small fragment anteromedially. We managed it with a 12 x 100 mm stem and a metal baseplate for spacer. TOTAL TOURNIQUET TIME: 103 minutes. IMPLANTS USED: 1. Breana Triathlon size 5 posterior stabilized femoral component. [...] correct at the end of the case. /[id number] MD TEENA Paul/AQ / TEENA / MODL /[id number] documented in this encounter Plan of Treatment Not on file documented as of this encounter Visit Diagnoses Not on filedocumented in this encounter Care Teams Laminating Machine Tender Relationship Specialty Start Date End Date Alfredo Aguiar MD [address] [place] [address] PCP - General Adolescent Medicine 10/16/22 10/19/22 Alfredo Aguiar MD [address] [place] [address] PCP - General Adolescent Medicine 10/20/22 documented as of this encounter
--- OUTSIDE RECORDS SUMMARY | 2025-05-08 14:08 | XMS_ITS | Encounter Summary ---
Author Organization [employer] ([place], [place], [place], [place]) Address [address] [place] [address] Care Team Providers Care Ctrs Name Role Phone Alfredo Aguiar MD Primary Care Provider + [phone] Alfredo Aguiar MD Primary Care Provider + [phone] Encounter Details Date Type Department Care Team (Late st Contact Info) Description 08/17/2019 Transcribed Document [facility] [place] [facility] [place] [address] ProviderEryn MD [address] [place] [address] Social History Tobacco Use Types Packs/Day Years Used Date Smoking Tobacco: Never Assessed Sex and Gender Information Value Date Recorded Sex Assigned at Not on file Legal Sex Male 5:45 PM CDT Gender Identity Not on file Sexual Orientation Not on file documented as of this encounter Miscellaneous Notes * Cerner Conversion Note - Eryn ProviderMD - 08/17/2019 6:35 PM VAULT MECHANIC Pain Assessment Entered On: 08/19/2019 19:59 [...] on filedocumented in this encounter Care Teams Ctrs Relationship Specialty Start Date End Date Alfredo Aguiar MD [address] [place] [address] PCP - General Adolescent Medicine 10/16/22 10/19/22 Alfredo Aguiar MD [address] [place] [address] PCP - General Adolescent Medicine 10/20/22 documented as of this encounter
--- OUTSIDE RECORDS SUMMARY | 2025-05-08 14:08 | XMS_ITS | Encounter Summary ---
Author Organization [employer] ([place], [place], [place], [place]) Address [address] [place] [address] Care Team Providers Care Ironer Or Presser Name Role Phone Alfredo Aguiar MD Primary Care Provider + [phone] Alfredo Aguiar MD Primary Care Provider + [phone] Encounter Details Date Type Department Care Team (Late st Contact Info) Description 05/20/2019 Transcribed Document [address] [address] Massimo Butterfield MD [address] [place] [address] Social History Tobacco Use Types Packs/Day [...] COVERING SERVICE UNTIL THURSDAY AM 05/23/19--------CONTACT INFO [phone] HPI: Patient is an 78 yo male admitted to [facility] for a left total knee revision [...] 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
--- OUTSIDE RECORDS SUMMARY | 2025-05-08 14:08 | XMS_ITS | Encounter Summary ---
Author Organization [employer] ([place], [place], [place], [place]) Address [address] [facility] [place] [address] Care Team Providers Care Sheriff'S Detective Name Role Phone Alfredo Lackey MD Primary Care Provider + [phone] Alfredo Lackey MD Primary Care Provider + [phone] Encounter Details Date Type Department Care Team (Late st Contact Info) Description 05/20/2019 Transcribed Document [facility] [address] [place] [address] Lion Allison MD [address] [place] [address] Social History Tobacco Use Types Packs/Day Years [...] : 1940 Primary Care Provider ALFREDO LACKEY (REF[facility] History of Present Illness painful TKA Vital [...] filedocumented in this encounter Care Teams Sheriff'S Detective Relationship Specialty Start Date End Date Alfredo Lackey MD [address] [place] [address] PCP - General Adolescent Medicine 10/16/22 10/19/22 Alfredo Lackey MD [address] [place] [address] PCP - General Adolescent Medicine 10/20/22 documented as of this encounter
--- OUTSIDE RECORDS SUMMARY | 2025-05-08 14:08 | XMS_ITS | Encounter Summary ---
Author Organization [employer] ([place], [place], [place], [place]) Address [address] [place] [address] Care Team Providers Care Production Aide Name Role Phone Alferdo Aguiar MD Primary Care Provider + [phone] Alfredo Aguiar MD Primary Care Provider + [phone] Encounter Details Date Type Department Care Team (Late st Contact Info) Description 05/23/2019 Transcribed Document [facility] 1 [place] [address] Massimo Butterfield MD [address] [place] [address] Social History Tobacco Use Types Packs/Day [...] male admitted to [facility] for a left total knee [...] 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
--- OUTSIDE RECORDS SUMMARY | 2025-05-08 14:08 | XMS_ITS | Encounter Summary ---
Author Organization [employer] ([place], [place], [place], [place]) Address [address] [place] [address] Care Team Providers Care Testing Tech Name Role Phone Alfredo Aguiar MD Primary Care Provider + [phone] Alfredo Aguiar MD Primary Care Provider + [phone] Encounter Details Date Type Department Care Team (Late st Contact Info) Description 05/18/2019 Transcribed Document [facility] [place] [facility] [address] ProviderEryn MD [address] [place] [address] Social History Tobacco Use Types Packs/Day Years [...] Source : Measured Height Entry Format : [place] Height, Feet : 0 ft(Converted to: 0 cm, 0 Inch) Height, Inches : 72 Inch(Converted to: 6 ft 0 Inch, 182.88 cm) Clinical Height : 182.88 cm Weight Source : Standing scale Weight Entry Format : [place] Clinical Dosing Weight : 80.63 kg Weight, Pounds : 177 lb Weight, Ounces : 6 oz Body Surface Area (BSA) : 2.03 m2 Body Mass Index : 24.1 kg/m2 (HI) Issue Body Weight : 77 kg HERMAN LARSEN [...] 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 Alcohol Use Frequency Rarely. (Last Updated: 03/24/2018 13:52:20 EDT by HERMAN LARSEN RN) Substance Abuse: Drug Use Hx: No. Use in Last 12 Months: No. 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 Within Last 30 Days : No Contact With Traveler to Advisory Region : No Tuberculosis Symptoms : None HERMAN LARSEN RN - 05/18/2019 11:00 EDT Anesthesia/Transfusion History [...] understanding Take/Hold Medications Pre-Procedure : Verbalizes understanding HREMAN LARSEN RN - 05/18/2019 11:00 EDT General Info Preferred Name : Mele Support Person/Patient Floor Cashier : Yes Support Person/Pt Rep Name : Ashli cordova Support Person/Pt Rep Contact Information : Want Family/Rep/Phys Notified of Admit : No Emergency Contact #1 : Ashli Cordova Emergency Contact #1 Emergency Contact #1 Relationship : Emergency Contact #2 : Raysa Escobar Emergency Contact #2 Emergency Contact #2 Relationship : daughter Information Obtained From : Patient Primary Language : Cymraes Preferred Communication Mode : Verbal Communication Barrier [...] 05/18/2019 10:58 EDT Electronically signed by [place] [facility] Conversion Reports Analysis Manager Cerner at 11/18/2022 9:32 AM CDT documented in this encounter Plan of Treatment Not on file documented as of this encounter Visit Diagnoses Not on filedocumented in this encounter Care Teams Testing Tech Relationship Specialty Start Date End Date Alfredo Aguiar MD [address] [place] [address] PCP - General Adolescent Medicine 10/16/22 10/19/22 Alfredo Aguiar MD [address] [place] [address] PCP - General Adolescent Medicine 10/20/22 documented as of this encounter
--- OUTSIDE RECORDS SUMMARY | 2025-05-08 14:08 | XMS_ITS | Encounter Summary ---
Author Organization [employer] ([place], [place], [place], [place]) Address [address] [place] [address] Care Team Providers Care Backend Java Developer Name Role Phone Alfredo Aguiar MD Primary Care Provider + [phone] Alfredo Aguiar MD Primary Care Provider + [phone] Encounter Details Date Type Department Care Team (Late st Contact Info) Description 08/18/2019 Transcribed Document [facility] [place] [address] [place] [address] ProviderEryn MD [address] [place] [address] Social History Tobacco Use Types Packs/Day Years Used Date Smoking Tobacco: Never Assessed Sex and Gender Information Value Date Recorded Sex Assigned at Not on file Legal Sex Male 5:45 PM CDT Gender Identity Not on file Sexual Orientation Not on file documented as of this encounter Miscellaneous Notes * Cerner Conversion Note - Eryn ProviderMD - 08/18/2019 12:00 PM LINE PULLER Pain Assessment Entered On: 08/18/2019 16:41 EST [...] on filedocumented in this encounter Care Teams Backend Java Developer Relationship Specialty Start Date End Date Alfredo Aguiar MD [address] [place] [address] PCP - General Adolescent Medicine 10/16/22 10/19/22 Alfredo Aguiar MD [address] [place] [address] PCP - General Adolescent Medicine 10/20/22 documented as of this encounter
--- OUTSIDE RECORDS SUMMARY | 2025-05-08 14:09 | XMS_ITS | Encounter Summary ---
Author Organization [employer] ([place], [place], [place], [place]) Address [address] [place] [address] Care Team Providers Care Senior Enlisted Advisor Name Role Phone Alfredo Aguiar MD Primary Care Provider + [phone] Alfredo Aguiar MD Primary Care Provider + [phone] Encounter Details Date Type Department Care Team (Late st Contact Info) Description 08/18/2019 Transcribed Document [facility] [place] [address] ProviderEryn MD [address] [place] [address] Social History Tobacco Use Types Packs/Day Years Used Date Smoking Tobacco: Never Assessed Sex and Gender Information Value Date Recorded Sex Assigned at Not on file Legal Sex Male 5:45 PM CDT Gender Identity Not on file Sexual Orientation Not on file documented as of this encounter Miscellaneous Notes * Cerner Conversion Note - Eryn ProviderMD - 08/18/2019 11:53 AM LEAD INVESTIGATOR Treatment Intervention, PT Entered On: 08/18/2019 15:16 [...] : 08/17/2019 07:12 Assisted by, PT : theater technician/aide Personal Devices : Personal Devices No [...] within reach RN/PCT Informed Comment : ELICEO Aranda ok'd to treat. Treatment End Time : 08/18/2019 14:03 EST Treatment Time : 24 Minute(s) SHARON WALTON PTA - 08/18/2019 15:09 EST Functional Mobility Mobility Grid Sit to Stand : Rehab Moderate assistance (Comment: x2 [SHARON WALTON PTA - 08/18/2019 15:09 EST] ) Stand to Sit : Rehab Moderate assistance (Comment: x2 [SHARON WALTON PTA - 08/18/2019 15:09 EST] ) Sit to Supine [...] Orientation : Oriented x 4 SHARON WALTON DEVELOPMENTAL WRITING INSTRUCTOR - 08/18/2019 15:09 EST Edu Topics Physical Therapy Education Grid Gait Training : Returns demonstration, Needs further teaching Role of Physical Therapy : Returns demonstration Therapeutic Exercises : Returns demonstration, Needs further teaching Transfer Training : Returns demonstration, Needs further teaching SHARON WALTON DEVELOPMENTAL WRITING INSTRUCTOR - 08/18/2019 15:09 EST Indication Assesessment, PT Physical Therapy Indicated : Yes SHARON WALTONMAUREEN - 08/18/2019 15:09 EST Plan of Care, PT PT Tx Plan/Goals Established w Patient : Yes SHARON WALTON DEVELOPMENTAL WRITING INSTRUCTOR 08/18/2019 15:09 EST Half-Way Goals Mobility/Bed Mobility LTG PT Grid Goal #1 Activity : Sit to stand Assist : Supervision or set-up Equipment : Walker, front wheel Date to Meet : 09/01/2019 EST Goal Status : Progressing, continue SHARON WALTONMAUREEN - 08/18/2019 15:09 EST Transfer LTG Grid Goal #1 Destination : Chair, with arms Type : Stand Pivot Sit Assist : Supervision or set-up Equipment : Walker, front wheel Date to Meet : 09/01/2019 EST Goal Status : Intial Goal SHARON WALTONMAUREEN - 08/18/2019 15:09 EST Ambulation LTG Grid Goal #1 Device : Walker, front wheel Distance : 75ft Assist : Supervision or set-up Date to Meet : 09/01/2019 EST Goal Status : Progressing, continue SHARON WALTONMAUREEN - 08/18/2019 15:09 EST Treatment Note Subjective Comment [...] for Treatment : Continue per POC. ANTON MAUREEN HERRERA 08/18/2019 15:09 EST Pain Assessment Pain Scaled Used : 0-10 Pain scale Pain Score Post-Intervention. : 2 Location : Knee, left SHARON WALTONMAUREEN - 08/18/2019 15:09 EST Image 1 - Images currently included in the form version of this document have not been included in the text rendition version of the form. Anticipated Discharge Needs, OT/PT Anticipated Discharge to : Unit, rehabilitation SHARON WALTON, DEVELOPMENTAL WRITING INSTRUCTOR - 08/18/2019 15:09 EST [place] PT Charges DEVELOPMENTAL WRITING INSTRUCTOR PT Therap. Exercise 15 min-DEVELOPMENTAL WRITING INSTRUCTOR : 1 Gait Training Each 15 Min-DEVELOPMENTAL WRITING INSTRUCTOR : 1 SHARON WALTON, DEVELOPMENTAL WRITING INSTRUCTOR - 08/18/2019 15:09 EST Electronically signed by [facility] Conversion Document Imaging Specialist Cerner at 11/23/2022 1:10 PM CDT documented in this encounter Plan of Treatment Not on file documented as of this encounter Visit Diagnoses Not on filedocumented in this encounter Care Teams Senior Enlisted Advisor Relationship Specialty Start Date End Date Alfredo Aguiar MD [address] [place] [address] PCP - General Adolescent Medicine 10/16/22 10/19/22 Alfredo Aguiar MD [address] [place] [address] PCP - General Adolescent Medicine 10/20/22 documented as of this encounter
--- OUTSIDE RECORDS SUMMARY | 2025-05-08 14:09 | XMS_ITS | Encounter Summary ---
Author Organization [employer] ([place], [place], [place], [place]) Address [address] [place] [address] Care Team Providers Care Spring Bender Name Role Phone Alfredo Aguiar MD Primary Care Provider + [phone] Alfredo Aguiar MD Primary Care Provider + [phone] Encounter Details Date Type Department Care Team (Late st Contact Info) Description 05/22/2019 Transcribed Document [facility] [place] [facility] [address] ProviderEryn MD [address] [place] [address] Social History Tobacco Use Types Packs/Day Years Used Date Smoking Tobacco: Never Assessed Sex and Gender Information Value Date Recorded Sex Assigned at Not on file Legal Sex Male 5:45 PM CDT Gender Identity Not on file Sexual Orientation Not on file documented as of this encounter Miscellaneous Notes * Cerner Conversion Note - Historical ProviderMD - 05/22/2019 4:21 PM CDT Event Note [...] 05/22/2019 16:21 EDT Electronically signed by Wellington [facility] Conversion Property Management Accountant Cerner at 11/18/2022 9:29 AM CDT documented in this encounter Plan of Treatment Not on file documented as of this encounter Visit Diagnoses Not on filedocumented in this encounter Care Teams Spring Bender Relationship Specialty Start Date End Date Alfredo Aguiar MD [address] [place] [address] PCP - General Adolescent Medicine 10/16/22 10/19/22 Alfredo Aguiar MD [address] [place] [address] PCP - General Adolescent Medicine 10/20/22 documented as of this encounter
--- OUTSIDE RECORDS SUMMARY | 2025-05-08 14:09 | XMS_ITS | Clinical Summary ---
Author Organization [facility] Address [address] [place] [address] Care Team Providers Care Hotel Or Motel Receptionist Name Role Phone Alfredo Aguiar MD Primary Care Provider [phone] Allergies No known active allergies Medications rosuvastatin [...] DR capsule BID. 02/23/20 21 Active Tiotropium [place] Monohydrate (SPIRIVA RESPIMAT IN) 2 puffs every [...] day. 03/05/20 23 Active ergocalciferol 1.25 MG (32433 UT) capsuleIndicati ons:Vitamin D deficiency Take 1 [...] USE DIRECTED 06/09/20 24 Active HYDROcodone-shelbie taminophen ([place]) 5-325 MG tablet TAKE ONE TABLET BY [...] TABLET DAILY 90 tablet 04/10/20 25 Active triamcinolone (Kenalog) 0.1 % ointment 04/18/20 25 Active fluticasone (Flonase) 50 MCG/ACT nasal spray Administer 1 spray into each nostril daily. Shake gently. Before first use, prime pump. After use, clean tip and replace cap. Active empagliflozin (Jardiance) 10 MG Take 1 [...] Encounters Date Type Department Care Team Description 04/24/2025 8:45 AM EDT Office Visit [facility] [address] [place] [address] Rosa Houston S, OD Type 2 diabetes mellitus with hyperglycemia, with long-term current use of insulin ([facility]) (Primary Dx); Myopia of both eyes; Presbyopia 04/24/2025 Travel 04/10/2025 Refill [facility] Endocrinology [address] [place] [address] Neena Fields, APPRAISAL TECHNICIAN from Last 3 Months Immunizations Immunization Administration [...] 9:20 AM EDT Office Visit [facility] Endocrinology [address] [place] [address] Neena Fields, APPRAISAL TECHNICIAN [address] [place] [address] Health Maintenance Due Date Last Done Comments [facility]-Bone Density Scan 1940 [facility]-Depression Screening 1940 [facility]-Medicare Annual Wellness (AWV) 1940 [facility]-/Child/Adol SDOH Screenings 1940 Diabetes: Dental Exam 1948 [facility]- SDOH Screenings 1956 [facility]-Adult SDOH Screenings 1958 [facility]-Pneumococcal Vaccine: 50+ Years (1 of 2 - PCV) 1957 [id number] Vaccine (7 - Moderna risk 2023- season) 2025 04/25/2024, 05/14/2022, 01/07/2022, Additional history [...] or Completed 05/04/2023 [facility]-Obesity Intervention Completed 025, 02/01/2025, 01/27/2025, Additional history exists HPV Vaccines Aged Out [...] hyperglycemia, with long-term current use of insulin ([facility]) from Last 3 Months or Most Recently Relevant to Health Maintenance Results * POCT glycosylated hemoglobin (Hb A1C) (02/01/2025 12:38 PM EDT) POCT Hemoglobin A1C 8.4 <5.7% Non-Diabe tic % [facility] Kit Lot Number [id number] [facility] Kit Expiration Date 11/30/2026 [facility] Blood Venous blood specimen / Unknown 02/01/2025 12:38 PM EDT Neena Fields APPRAISAL TECHNICIAN POINT OF CARE TEST ENTER/KATIE T ORDERABLES Final Result [facility] [address] [place] [address] from Last 3 Months or Most Recently Relevant to Health Maintenance Insurance MEDICARE Advance Directives Documents on File Type Date Recorded Patient Shipping Packer Expl anation Advance Directives and Living Will 10/24/2022 Living Will and Surrogate Care Teams Hotel Or Motel Receptionist Relationship Specialty Start Date End Date Alfredo Aguiar MD [address] [place] [address] PCP - General 12/14/20
--- OUTSIDE RECORDS SUMMARY | 2025-05-08 14:09 | XMS_ITS | Encounter Summary ---
Author Organization [employer] ([place], [place], [place], [place]) Address [address] [facility] [place] [address] Care Team Providers Care Line Manager Name Role Phone Alfredo Aguiar MD Primary Care Provider + [phone] Alfredo Aguiar MD Primary Care Provider + [phone] Encounter Details Date Type Department Care Team (Late st Contact Info) Description 05/21/2019 Transcribed Document [facility] [address] [place] [address] Lion Allison MD [address] [place] [address] Social History Tobacco Use Types Packs/Day Years [...] Associated Diagnoses: None Author: LION ALLISON MD-ORT [facility] Ortho Progress Note SUBJECTIVE No events. Pain controlled. Has not been OOB w/ PT EXAM Vitals Signs (last 24 hrs) Last Charted Minimum Maximum Temp 97.8 (MAY 21 05:33) 97.8 (MAY 21 05:33) 98.9 (MAY 18 16:55) Mon HR 92 (MAY 21 05:33) 61 (MAY 18 17:50) 92 (MAY 21 05:33) Periph HR 76 (MAY 18 11:23) 76 (MAY 18 11:23) 76 (MAY 18 11:23) Resp Rate 18 (MAY 21 05:33) L 4 (MAY 18 18:05) H 38 (MAY 18 17:35) SBP 126 (MAY 21 05:33) L 74 (OCT 18 17:10) 130 (MAY 18 11:23) DBP 65 (MAY 21 05:33) [...] filedocumented in this encounter Care Teams Line Manager Relationship Specialty Start Date End Date Alfredo Aguiar MD [address] [place] [address] PCP - General Adolescent Medicine 10/16/22 10/19/22 Alfredo Aguiar MD [address] [place] [address] PCP - General Adolescent Medicine 10/20/22 documented as of this encounter
--- OUTSIDE RECORDS SUMMARY | 2025-05-08 14:09 | XMS_ITS | Encounter Summary ---
Author Organization [employer] ([place], [place], [place], [place]) Address [address] [place] [address] Care Team Providers Care Licensed Midwife Name Role Phone Alfredo Aguiar MD Primary Care Provider + [phone] Alfredo Aguiar MD Primary Care Provider + [phone] Encounter Details Date Type Department Care Team (Late st Contact Info) Description 08/18/2019 Transcribed Document [facility] [place] [facility] [place] [address] ProviderEryn MD [address] [place] [address] Social History Tobacco Use Types Packs/Day Years Used Date Smoking Tobacco: Never Assessed Sex and Gender Information Value Date Recorded Sex Assigned at Not on file Legal Sex Male 5:45 PM CDT Gender Identity Not on file Sexual Orientation Not on file documented as of this encounter Miscellaneous Notes * Cerner Conversion Note - Eryn ProviderMD - 08/18/2019 2:25 PM ALBACORE FISHING BOAT CREWMAN On Going Discharge Planning Entered On: 08/18/2019 14:26 EST Performed On: 08/18/2019 14:25 EST by JUANY HERNANDEZ RN-Barrel BurnerSenior Technical Specialist Progress Note Discharge Arrangements : Patient Post-Acute Information Patient Name: LORA JAIN JR Gender: Male : [birth year] Age: 78 Years [place] Referral(s): Service: Organization: Business Address: Phone Number: Shelter Facility [facility] [address] [place], [address] Discharge Options Discussed with Patient : Home Health, Short term rehabilitation Barriers to Discharge Identified : 3 Day Qualifying Stay for SNF Barriers to Discharge Unresolved : 3 Day Qualifying Stay for SNF JUANY HERNANDEZ, RN-Barrel Burner - 08/18/2019 14:25 EST Electronically signed by [facility] Conversion Carton Marker Machine Cerner at 11/18/2022 9:35 AM CDT documented in this encounter Plan of Treatment Not on file documented as of this encounter Visit Diagnoses Not on filedocumented in this encounter Care Teams Licensed Midwife Relationship Specialty Start Date End Date Alfredo Aguiar MD [address] [place] [address] PCP - General Adolescent Medicine 10/16/22 10/19/22 Alfredo Aguiar MD [address] [place] [address] PCP - General Adolescent Medicine 10/20/22 documented as of this encounter
--- OUTSIDE RECORDS SUMMARY | 2025-05-08 14:09 | XMS_ITS | Encounter Summary ---
Author Organization [employer] ([place], [place], [place], [place]) Address [address] [place] [address] Care Team Providers Care Systems Security Analyst Name Role Phone Alfredo Aguiar MD Primary Care Provider + [phone] Alfredo Aguiar MD Primary Care Provider + [phone] Encounter Details Date Type Department Care Team (Late st Contact Info) Description 05/22/2019 Transcribed Document [facility] [place] Family Medicine [place] [address] ProviderEryn MD [address] [place] [address] Social History Tobacco Use Types Packs/Day Years [...] pending. Rad: Radiology Results (Last 48 hours) [id number] -- 05/20/2019 06:54 CR Knee 1 or [...] Dr. Wendie Peng. Electronically signed by [facility] Conversion Proof Tester Cerner at 11/18/2022 9:36 AM CDT documented in this encounter Plan of Treatment Not on file documented as of this encounter Visit Diagnoses Not on filedocumented in this encounter Care Teams Systems Security Analyst Relationship Specialty Start Date End Date Alfredo Aguiar MD [address] [place] [address] PCP - General Adolescent Medicine 10/16/22 10/19/22 Alfredo Aguiar MD [address] [place] [address] PCP - General Adolescent Medicine 10/20/22 documented as of this encounter
--- OUTSIDE RECORDS SUMMARY | 2025-05-08 14:09 | XMS_ITS | Encounter Summary ---
Author Organization [facility] ([place], [place], [place], [place]) Address [address] [place] [address] Care Team Providers Care Nuclear Reactor Engineer Name Role Phone Alfredo Aguiar MD Primary Care Provider + [phone] Alfredo Aguiar MD Primary Care Provider + [phone] Encounter Details Date Type Department Care Team (Late st Contact Info) Description 05/23/2019 Transcribed Document [facility] [place] [facility] [place] [address] ProviderEryn MD [address] [place] [address] Social History Tobacco Use Types Packs/Day Years [...] : Yes Central Line Insertion Facility : [facility] Central Line Insertion Start Date/Time : 05/23/2019 10:50 EDT Central Catheter Type : Power injection PICC Central Line Lot Number : [id number] Central Line Vessel Cannulated : Brachial vein [...] CL Time Out Additional Attendees : Angus Crump RN/Juliet Etienne RN/Dania Victor RN 1% Lidocaine [...] Nurse Notified Name : ANGUS CRUMP RN Penn, Mary R, RN - 05/23/2019 11:27 EDT Electronically signed by [facility] Conversion Glass Unloading Equipment Tender Cerner at 11/18/2022 9:32 AM CDT documented in this encounter Plan of Treatment Not on file documented as of this encounter Visit Diagnoses Not on filedocumented in this encounter Care Teams Nuclear Reactor Engineer Relationship Specialty Start Date End Date Alfredo Aguiar MD [address] [place] [address] PCP - General Adolescent Medicine 10/16/22 10/19/22 Alfredo Aguiar MD [address] [place] [address] PCP - General Adolescent Medicine 10/20/22 documented as of this encounter
--- OUTSIDE RECORDS SUMMARY | 2025-05-08 14:09 | XMS_ITS | Encounter Summary ---
Author Organization [employer] ([place], [place], [place], [place]) Address [address] [facility] [place] [address] Care Team Providers Care Sack Repairer Name Role Phone Alfredo Lackey MD Primary Care Provider + [phone] Alfredo Lackey MD Primary Care Provider + [phone] Encounter Details Date Type Department Care Team (Late st Contact Info) Description 08/18/2019 Transcribed Document [facility] [place] Medicine [facility] [place] [address] ProviderEryn MD [address] [place] [address] Social History Tobacco Use Types Packs/Day Years Used Date Smoking Tobacco: Never Assessed Sex and Gender Information Value Date Recorded Sex Assigned at Not on file Legal Sex Male 5:45 PM CDT Gender Identity Not on file Sexual Orientation Not on file documented as of this encounter Miscellaneous Notes * Cerner Conversion Note - Eryn Arcos MD - 08/18/2019 6:09 AM LEGAL ANALYST Patient: LORA JAIN JR Age: 78 Years Sex: Male : 1940 Admit Date 08/17/2019 07:12 Discharge Date 08/20/2019 Primary Care Provider ALFREDO LACKEY (REF)[facility] Discharge Diagnosis Status post revision of total [...] and incisional VAC in place Discharge Disposition [facility] inpatient rehabilitation before transfer to home for [...] -- Start: 08/17/19 18:48:00 EST, 60 gm [id number] randa, Isolation: Standard Precautions, Instructions: Diabetic Diet [...] KNEE, T84.54XA, Pre-Op Dx: T84.54XA, Print Label, [id number], Print Label By Order Location,... In-Lab Culture [...] Lab Collect:, Micro Spec, Media label Y/N, [id number] Culture Fungus Specimen Type: Tissue, From: Knee [...] on filedocumented in this encounter Care Teams Sack Repairer Relationship Specialty Start Date End Date Alfredo Lackey MD [address] [place] [address] PCP - General Adolescent Medicine 10/16/22 10/19/22 Alfredo aLckey MD [address] [place] [address] PCP - General Adolescent Medicine 10/20/22 documented as of this encounter
--- OUTSIDE RECORDS SUMMARY | 2025-05-08 14:09 | XMS_ITS | Encounter Summary ---
Author Organization [employer] ([place], [place], [place], [place]) Address [address] [place] [address] Care Team Providers Care Leader Tier Name Role Phone Alfredo Aguiar MD Primary Care Provider + [phone] Alfredo Aguiar MD Primary Care Provider + [phone] Encounter Details Date Type Department Care Team (Late st Contact Info) Description 05/21/2019 Transcribed Document [facility] [place] [facility] [place] [facility] [place] [address] ProviderEryn MD [address] [place] [address] Social History Tobacco Use Types Packs/Day Years [...] EDT Pain Scale Intensity : 3 Ed oSsa RN-Resource - 05/21/2019 6:43 EDT Image 4 - Images currently included in the form version of this document have not been included in the text rendition version of the form. documented in this encounter Plan of Treatment Not on file documented as of this encounter Visit Diagnoses Not on filedocumented in this encounter Care Teams Leader Tier Relationship Specialty Start Date End Date Alfredo Aguiar MD [address] [place] [address] PCP - General Adolescent Medicine 10/16/22 10/19/22 Alfredo Aguiar MD [address] [place] [address] PCP - General Adolescent Medicine 10/20/22 documented as of this encounter
--- OUTSIDE RECORDS SUMMARY | 2025-05-08 14:09 | XMS_ITS | Encounter Summary ---
Author Organization [employer] ([place], [place], [place], [place]) Address [address] [place] [address] Care Team Providers Care Hybrid Tester Name Role Phone Alfredo Aguiar MD Primary Care Provider + [phone] Alfredo Aguiar MD Primary Care Provider + [phone] Encounter Details Date Type Department Care Team (Late st Contact Info) Description 08/18/2019 Transcribed Document [facility] [place] [address] [place] [address] ProviderEryn MD [address] [place] [address] Social History Tobacco Use Types Packs/Day Years Used Date Smoking Tobacco: Never Assessed Sex and Gender Information Value Date Recorded Sex Assigned at Not on file Legal Sex Male 5:45 PM CDT Gender Identity Not on file Sexual Orientation Not on file documented as of this encounter Miscellaneous Notes * Cerner Conversion Note - Eryn ProviderMD - 08/18/2019 6:00 AM PC TECHNICIAN Pain Assessment Entered On: 08/18/2019 16:41 EST [...] on filedocumented in this encounter Care Teams Hybrid Tester Relationship Specialty Start Date End Date Alfredo Aguiar MD [address] [place] [address] PCP - General Adolescent Medicine 10/16/22 10/19/22 Alfredo Aguiar MD [address] [place] [address] PCP - General Adolescent Medicine 10/20/22 documented as of this encounter
--- OUTSIDE RECORDS SUMMARY | 2025-05-08 14:09 | XMS_ITS | Encounter Summary ---
Author Organization [email or web address] ([place], [place], [place], [place]) Address [address] [place] [address] Care Team Providers Care Director Targeted Marketing Name Role Phone Alfredo Aguiar MD Primary Care Provider + [phone] Alfredo Aguiar MD Primary Care Provider [phone] Encounter Details Date Type Department Care Team (Late st Contact Info) Description 08/20/2019 Transcribed Document [facility] [place] [facility] [place] [address] ProviderEryn MD [address] [place] [address] Social History Tobacco Use Types Packs/Day Years Used Date Smoking Tobacco: Never Assessed Sex and Gender Information Value Date Recorded Sex Assigned at Not on file Legal Sex Male 5:45 PM CDT Gender Identity Not on file Sexual Orientation Not on file documented as of this encounter Miscellaneous Notes * Cerner Conversion Note - Eryn ProviderMD - 08/20/2019 12:28 PM TOXICOLOGY SUPERVISOR Stroke/Warfarin Instructions Entered On: 08/20/2019 12:28 EST Performed On: 08/20/2019 12:28 EST by KASSANDRA MEADOWS LPN Stroke/Warfarin Instructions Stroke/TIA Discharge Ins : N/A Warfarin Discharge Ins : N/A KASSANDRA MEADOWS LPN - 08/20/2019 12:28 EST documented in this encounter Plan of Treatment Not on file documented as of this encounter Visit Diagnoses Not on filedocumented in this encounter Care Teams Director Targeted Marketing Relationship Specialty Start Date End Date Alfredo Aguiar MD [address] [place] [address] PCP - General Adolescent Medicine 10/16/22 10/19/22 Alfredo Aguiar MD [address] [place] [address] PCP - General Adolescent Medicine 10/20/22 documented as of this encounter
--- OUTSIDE RECORDS SUMMARY | 2025-05-08 14:09 | XMS_ITS | Encounter Summary ---
Author Organization [employer] ([place], [place], [place], [place]) Address [address] [place] [address] Care Team Providers Care Cisco Certified Network Associate Name Role Phone Alfredo Aguiar MD Primary Care Provider + [phone] Alfredo Aguiar MD Primary Care Provider + [phone] Encounter Details Date Type Department Care Team (Late st Contact Info) Description 05/23/2019 Transcribed Document [facility] [place] [facility] [place] [address] ProviderEryn MD [address] [place] [address] Social History Tobacco Use Types Packs/Day Years [...] On: 05/23/2019 15:40 EDT by ADITYA CRUMP RN Discharge Documentation Discharge Date/Time : 05/23/2019 16:15 EDT [...] called report to sam at 1540 at [facility] ADITYA CRUMP RN - 05/23/2019 15:40 EDT Electronically signed by [facility] Conversion Field Marketing Director Harjinderner at 11/18/2022 9:13 AM CDT documented in this encounter Plan of Treatment Not on file documented as of this encounter Visit Diagnoses Not on filedocumented in this encounter Care Teams Cisco Certified Network Associate Relationship Specialty Start Date End Date Alfredo Aguiar MD [address] [place] [address] PCP - General Adolescent Medicine 10/16/22 10/19/22 Alfredo Aguiar MD [address] [place] [address] PCP - General Adolescent Medicine 10/20/22 documented as of this encounter
--- OUTSIDE RECORDS SUMMARY | 2025-05-08 14:09 | XMS_ITS | Encounter Summary ---
Author Organization [employer] ([place], [place], [place], [place]) Address [address] [place] [address] Care Team Providers Care Boxcar Weigher Name Role Phone Alfredo Aguiar MD Primary Care Provider + [phone] Alfredo Aguiar MD Primary Care Provider + [phone] Encounter Details Date Type Department Care Team (Late st Contact Info) Description 08/19/2019 Transcribed Document [facility] [place] [facility] [place] [address] ProviderEryn MD [address] [place] [address] Social History Tobacco Use Types Packs/Day Years Used Date Smoking Tobacco: Never Assessed Sex and Gender Information Value Date Recorded Sex Assigned at Not on file Legal Sex Male 5:45 PM CDT Gender Identity Not on file Sexual Orientation Not on file documented as of this encounter Miscellaneous Notes * Cerner Conversion Note - Eryn Arcos MD - 08/19/2019 5:06 PM CHECKER DUMP GROUNDS Patient: LORA JAIN JR Age: 78 years [...] alive and healthy SH: , lives in [place], [place]. Denies tobacco, alcohol, or illicit drug use. PHYSICAL EXAM: Vitals Signs (last 24 hrs) Last Charted Minimum Maximum Temp 97.8 (AUG 19:04) 97.8 (AUG 19:) 99.2 (AUG 18:40) Mon HR 75 (AUG 19 11:04) 72 (AUG 18 20:03) 84 (AUG 19 05:46) Resp Rate 16 (AUG 19 05:46) 16 (AUG 18 20:03) 16 (AUG 18 20:03) SBP 111 (AUG 19 11:04) 111 (AUG 19 11:04) H 143 (AUG 19 05:46) DBP 81 (AUG 19 11:04) 64 (AUG 19 05:46) 81 (AUG 19 11:04) MAP 94 (AUG 19 11:04) 82 (AUG 19 05:46) 94 (AUG 19:04) SpO2 96 (AUG 19:) L 93 (AUG 18 22:40) 97 ([place]D [...] with case management. I coordinated his care. documented in this encounter Plan of Treatment Not on file documented as of this encounter Visit Diagnoses Not on filedocumented in this encounter Care Teams Boxcar Weigher Relationship Specialty Start Date End Date Alfredo Aguiar MD [address] [place] [address] PCP - General Adolescent Medicine 10/16/22 10/19/22 Alfredo Aguiar MD [address] [place] [address] PCP - General Adolescent Medicine 10/20/22 documented as of this encounter
--- OUTSIDE RECORDS SUMMARY | 2025-05-08 14:09 | XMS_ITS | Encounter Summary ---
Author Organization [employer] ([place], [place], [place], [place]) Address [address] [place] [address] Care Team Providers Care Integration Engineer Name Role Phone Alfredo Aguiar MD Primary Care Provider + [phone] Alfredo Aguiar MD Primary Care Provider + [phone] Encounter Details Date Type Department Care Team (Late st Contact Info) Description 08/20/2019 Transcribed Document [facility] [place] [facility] [address] ProviderEryn MD [address] [place] [address] Social History Tobacco Use Types Packs/Day Years Used Date Smoking Tobacco: Never Assessed Sex and Gender Information Value Date Recorded Sex Assigned at Not on file Legal Sex Male 5:45 PM CDT Gender Identity Not on file Sexual Orientation Not on file documented as of this encounter Miscellaneous Notes * Cerner Conversion Note - Eryn Arcos MD - 08/20/2019 12:26 PM INVENTORY ASSOCIATE Patient Education Materials Follows: Discharge Instructions for [...] of Dr. Allison or Dr. Haskins, call [phone] If you are a patient of Dr. Coello, call [phone] Nurse Navigator: Sil Rodriguez Office: [phone]; ; available during regular business hours Total Knee Replacement, Care After These instructions give you information about caring for yourself after your procedure. Your doctor may also give you more specific instructions. Call your doctor if you have any problems or questions after your procedure. Follow these instructions at home: Medicines ??? Take xhoz-xoo-xgjovmf and prescription medicines only as told by [...] cannot use soap and water, use hand pool attendant. ? Change your bandage as told by [...] 10/11/2012 Document Revised: 09/07/2017 Document Reviewed: 06/25/2016 [employer] Patient Education ? 2019 [employer] documented in this encounter Plan of Treatment Not on file documented as of this encounter Visit Diagnoses Not on filedocumented in this encounter Care Teams Integration Engineer Relationship Specialty Start Date End Date Alfredo Aguiar MD [address] [place] [address] PCP - General Adolescent Medicine 10/16/22 10/19/22 Alfredo Aguiar MD [address] [place] [address] PCP - General Adolescent Medicine 10/20/22 documented as of this encounter
--- OUTSIDE RECORDS SUMMARY | 2025-05-08 14:09 | XMS_ITS | Encounter Summary ---
Author Organization [employer] ([place], [place], [place], [place]) Address [address] [place] [address] Care Team Providers Care Caustic Operator Name Role Phone Alfredo Aguiar MD Primary Care Provider + [phone] Alfredo Aguiar MD Primary Care Provider + [phone] Encounter Details Date Type Department Care Team (Late st Contact Info) Description 05/21/2019 Transcribed Document [facility] [place] [facility] [place] [address] ProviderEryn MD [address] [place] [address] Social History Tobacco Use Types Packs/Day Years [...] and Treatment Ordered By: LION DAVIS MD-ORT 05/20/2019 16:52 [...] within reach RN/PCT Informed Comment : ELICEO OK'd PTx Treatment End Time : 05/23/2019 [...] Use of Assistive Device : Verbalizes understanding Guillermo Estevez, PT - 05/23/2019 12:55 EDT Indication Assesessment, PT Physical Therapy Indicated : Yes Guillermo Estevez, PT - 05/23/2019 12:55 EDT Plan of Care, PT PT Tx Plan/Goals Established w Patient : Yes Guillermo Estevez, PT - 05/23/2019 12:55 EDT Short Term Goals Ambulation STG Grid Goal #1 Device : Walker, front wheel Distance : 75 feet TTWB Left Assist : Supervision or set-up Date to Meet : 05/24/2019 EDT Goal Status : Progressing, continue Guillermo Estevez, PT - 05/23/2019 12:55 EDT Muskrat Trapper Goals Mobility/Bed Mobility LTG PT Grid Goal [...] Guillermo Estevez, PT - 05/23/2019 12:55 EDT Treatment Note Subjective Comment : Pt agreed to PTx Pt's bed was not lit, OT noted on returning Pt to bed. Pt's buttons not working and bed not inflating. Nsg Jordi notified. Transferred Pt out of bed [...] Anticipated Discharge to : Unit, rehabilitation, Unit, custodial Recommend Continued Therapy at Discharge : Yes Guillermo Estevez, PT - 05/23/2019 12:[address] [facility] PT Charges Gait Training Each 15 Min : 1 Guillermo Estevez, PT - 05/23/2019 12:55 EDT Electronically signed by [facility], [facility] Conversion Animal Ride Manager Cerner at 11/23/2022 1:10 PM CDT documented in this encounter Plan of Treatment Not on file documented as of this encounter Visit Diagnoses Not on filedocumented in this encounter Care Teams Caustic Operator Relationship Specialty Start Date End Date Alfredo Aguiar MD [address] [place] [address] PCP - General Adolescent Medicine 10/16/22 10/19/22 Alfredo Aguiar MD [address] [place] [address] PCP - General Adolescent Medicine 10/20/22 documented as of this encounter
--- OUTSIDE RECORDS SUMMARY | 2025-05-08 14:09 | XMS_ITS | Encounter Summary ---
Author Organization [employer] ([place], [place], [place], [place]) Address [address] [place] [address] Care Team Providers Care L D Rn Name Role Phone Alfredo Aguiar MD Primary Care Provider + [phone] Alfredo Aguiar MD Primary Care Provider + [phone] Encounter Details Date Type Department Care Team (Late st Contact Info) Description 05/23/2019 Transcribed Document [facility] [place] Family [place] [facility] [place] [address] ProviderEryn MD [address] [place] [address] Social History Tobacco Use Types Packs/Day Years Used Date Smoking Tobacco: Never Assessed Sex and Gender Information Value Date Recorded Sex Assigned at Not on file Legal Sex Male 5:45 PM CDT Gender Identity Not on file Sexual Orientation Not on file documented as of this encounter Miscellaneous Notes * Cerner Conversion Note - Eryn ProviderMD - 05/23/2019 4:01 PM CDT Discharge Summary, PT Entered On: 05/23/2019 16:03 EDT Performed On: 05/23/2019 16:01 EDT by Guillermo Estevez, PT Discharge Summary Discharge Summary Provider Notified : Nursing Reason for Discharge : Discharged from hospital Discharge Summary Comment, PT : Pt discharging from [facility] to [facility]. Pt was able to ambulate 32' with [...] Guillermo Estevez, PT - 05/23/2019 16:01 EDT Apprentice Painter Hand Goals Mobility/Bed Mobility LTG PT Grid Goal [...] 05/23/2019 16:01 EDT Electronically signed by [place] [facility] Conversion Creative Writing English Professor Cerner at 11/18/2022 9:24 AM CDT documented in this encounter Plan of Treatment Not on file documented as of this encounter Visit Diagnoses Not on filedocumented in this encounter Care Teams L D Rn Relationship Specialty Start Date End Date Alfredo Aguiar MD [address] [place] [address] PCP - General Adolescent Medicine 10/16/22 10/19/22 Alfredo Aguiar MD [address] [place] [address] PCP - General Adolescent Medicine 10/20/22 documented as of this encounter
--- OUTSIDE RECORDS SUMMARY | 2025-05-08 14:09 | XMS_ITS | Encounter Summary ---
Author Organization [employer] ([place], [place], [place], [place]) Address [address] [place] [address] Care Team Providers Care Sales Manager Prearranged Funerals Name Role Phone Alfredo Aguiar MD Primary Care Provider + [phone] Alfredo Aguiar MD Primary Care Provider + [phone] Encounter Details Date Type Department Care Team (Late st Contact Info) Description 05/21/2019 Transcribed Document [facility] [place] Family Medicine [address] [place] [address] ProviderEryn MD [address] [place] [address] Social History Tobacco Use Types Packs/Day Years [...] cefTRIAXone (Rocephin) - 1 Gram, IV Piggyback, [id number], infuse over 30 Minute(s), Routine vancomycin + Sodium Chloride 0.9% intravenous solution 250 m - 1,000 mg, IV Piggyback, [id number], infuse over 1 Hour(s), Routine Anticoagulant heparin [...] alive and healthy SH: , lives in [place], [place]. Denies tobacco, alcohol, or illicit drug [...] 05:33) 97.8 (MAY 21 05:33) 98.9 (MAY 20 16:55) Mon HR 92 (MAY 21 05:33) 61 (MAY 20 17:50) 92 (MAY 21 [...] 20) L 11.2 (MAY 18) HCT L 25.5 (MAY 21) L 35.3 (MAY 18) Plt H 454 (MAY 21) H 581 (MAY 18) Na L 134 (MAY 21) L 134 (MAY 16) K 4.3 (MAY 21) 4.2 (MAY 16) Cl L 98 (MAY 21) L 97 (MAY 18) CO2 27 (MAY 21) 29 (OCT 16) BUN 21 (MAY 21) 20 (MAY [...] for Dr. Wendie Peng. Electronically signed by [facility], [facility] Conversion Videogame Tester Cerner at 11/18/2022 9:41 AM CDT documented in this encounter Plan of Treatment Not on file documented as of this encounter Visit Diagnoses Not on filedocumented in this encounter Care Teams Sales Manager Prearranged Funerals Relationship Specialty Start Date End Date Alfredo Aguiar MD [address] [place] [id number] PCP - General Adolescent Medicine 10/16/22 10/19/22 Alfredo Aguiar MD [address] [place] [address] PCP - General Adolescent Medicine 10/20/22 documented as of this encounter
--- OUTSIDE RECORDS SUMMARY | 2025-05-08 14:09 | XMS_ITS | Encounter Summary ---
Author Organization [employer] ([place], [place], [place], [place]) Address [address] [place] [address] Care Team Providers Care House Carpenter Name Role Phone Alfredo Aguiar MD Primary Care Provider + [phone] Alfredo Aguiar MD Primary Care Provider + [phone] Encounter Details Date Type Department Care Team (Late st Contact Info) Description 05/23/2019 Transcribed Document [facility] [place] [facility] [place] [address] ProviderEryn MD [address] [place] [address] Social History Tobacco Use Types Packs/Day Years [...] 16) K 4.1 (MAY 23) 4.5 (MAY 20) 4.3 (MAY 19) 4.2 (MAY 16) Cl L 98 (MAY 23) L 96 (MAY 22) L 98 (MAY 21) L 97 (MAY 18) CO2 24 (MAY 23) L 19 (MAY 22) 27 (MAY 21) 29 (MAY 16) BUN H 23 (MAY 23) H 24 (MAY 20) 21 (OCT 19) 20 (OCT 16) Cr 1.20 (MAY 23) H 1.50 (MAY 20) 1.30 (MAY 19) 1.20 (MAY 16) Glu R H 350 (MAY 23) H 415 (MAY 22) H 305 (MAY 21) H 261 (MAY 16) Ca 9.7 (MAY 23) 9.3 (MAY 20) 8.5 (MAY 21) 9.4 (MAY 16) PT 10.4 (MAY 18) INR 1.0 (MAY 16) PTT 28.6 (MAY 18) AST 8 (MAY [...] placement--on order 5. Discharge to rehabilitation [facility]/DEREK: [facility]--D/w CM about changes to prior instructions sent. 1. Make sure he gets his dose of Rocephin 2 GM IV before discharge 2. Make sure he gets PICC placement today 3. He will need Rocephin 2 GM IV daily for 6 weeks. [facility] doctor will need to see him at [facility]. D/w Dr. Rob Pollard with our group. 4. He will need qweekly PICC line dressing changes with BioPatch or CHG patch 5. He will need qweekly CBC, CMP, ESR, CRP Wendie Peng MD saw and examined patient, verified findings, reviewed labs and radiographic data, formulated diagnosis, plan for treatment, and all medical decision making. Bowen Saldana for Dr. Wendie Peng. documented in this encounter Plan of Treatment Not on file documented as of this encounter Visit Diagnoses Not on filedocumented in this encounter Care Teams House Carpenter Relationship Specialty Start Date End Date Alfredo Aguiar MD [address] [place] [address] PCP - General Adolescent Medicine 10/16/22 10/19/22 Alfredo Aguiar MD [address] [place], [place] [address] PCP - General Adolescent Medicine 10/20/22 documented as of this encounter
--- OUTSIDE RECORDS SUMMARY | 2025-05-08 14:09 | XMS_ITS | Encounter Summary ---
Author Organization [employer] ([place], [place], [place], [place]) Address [address] [place] [address] Care Team Providers Care Icd 9 Coder Name Role Phone Alfredo Aguiar MD Primary Care Provider + [phone] Alfredo Aguiar MD Primary Care Provider + [phone] Encounter Details Date Type Department Care Team (Late st Contact Info) Description 05/22/2019 Transcribed Document [facility] [place] Family Medicine [address] [place] [address] ProviderEryn MD [address] [place] [address] Social History Tobacco Use Types Packs/Day Years [...] Marcelina Bojorquez RN - 05/22/2019 16:17 EDT documented in this encounter Plan of Treatment Not on file documented as of this encounter Visit Diagnoses Not on filedocumented in this encounter Care Teams Icd 9 Coder Relationship Specialty Start Date End Date Alfredo Aguiar MD [address] [place] [address] PCP - General Adolescent Medicine 10/16/22 10/19/22 Alfredo Aguiar MD [address] [place] [address] PCP - General Adolescent Medicine 10/20/22 documented as of this encounter
--- OUTSIDE RECORDS SUMMARY | 2025-05-08 14:09 | XMS_ITS | Encounter Summary ---
Author Organization [employer] ([place], [place], [place], [place]) Address [address] [place] [address] Care Team Providers Care Regional Sales Executive Name Role Phone Alfredo Aguiar MD Primary Care Provider + [phone] Alfredo Aguiar MD Primary Care Provider + [phone] Encounter Details Date Type Department Care Team (Late st Contact Info) Description 05/23/[address] [facility] [place] Family Medicine Pending [facility] [place] [address] ProviderEryn MD [address] [place] [address] Social History Tobacco Use Types Packs/Day Years [...] speaking or understanding Electronically signed by [place] [facility] Conversion Automatic Punch Press Operator Cerner at 11/18/2022 9:27 AM CDT documented in this encounter Plan of Treatment Not on file documented as of this encounter Visit Diagnoses Not on filedocumented in this encounter Care Teams Regional Sales Executive Relationship Specialty Start Date End Date Alfredo Aguiar MD [address] [place] [address] PCP - General Adolescent Medicine 10/16/22 10/19/22 Alfredo Aguiar MD [address] [place] [address] PCP - General Adolescent Medicine 10/20/22 documented as of this encounter
--- OUTSIDE RECORDS SUMMARY | 2025-05-08 14:09 | XMS_ITS | Encounter Summary ---
Author Organization [employer] ([place], [place], [place], [place]) Address [address] [place] [address] Care Team Providers Care Green Plumber Name Role Phone Alfredo Aguiar MD Primary Care Provider + [phone] Alfredo Aguiar MD Primary Care Provider + [phone] Encounter Details Date Type Department Care Team (Late st Contact Info) Description 05/22/2019 Transcribed Document [facility] [place] [facility] [place] [address] ProviderEryn MD [address] [place] [address] Social History Tobacco Use Types Packs/Day Years [...] Oral, Daily cefTRIAXone 2 Gram, IV Piggyback, [id number] docusate sodium 100 mg cap 100 mg [...] % LOW Lymph # 0.26 x10(3)/uL LOW Creek % 6.2 % Creek # 0.72 K/uL Eos % 0.2 % [...] % LOW Lymph # 0.36 x10(3)/uL LOW Creek % 8.3 % Creek # 0.79 K/uL Eos % 0.0 % [...] on filedocumented in this encounter Care Teams Green Plumber Relationship Specialty Start Date End Date Alfredo Aguiar MD [address] [place] [address] PCP - General Adolescent Medicine 10/16/22 10/19/22 Alfredo Aguiar MD [address] [place] [address] PCP - General Adolescent Medicine 10/20/22 documented as of this encounter
--- OUTSIDE RECORDS SUMMARY | 2025-05-08 14:09 | XMS_ITS | Encounter Summary ---
Author Organization [employer] ([place], [place], [place], [place]) Address [address] [place] [address] Care Team Providers Care Account Support Manager Name Role Phone Alfredo Aguiar MD Primary Care Provider + [phone] Alfredo Aguiar MD Primary Care Provider + [phone] Encounter Details Date Type Department Care Team (Late st Contact Info) Description 05/21/2019 Transcribed Document [facility] [place] [facility] [place] [address] ProviderEryn MD [address] [place] [address] Social History Tobacco Use Types Packs/Day Years [...] PREETHI LLANOS, PT - 05/21/2019 13:56 EDT Electronically signed by [place] [facility] Conversion Iron Pellet Tester Cerner at 11/18/2022 9:22 AM CDT documented in this encounter Plan of Treatment Not on file documented as of this encounter Visit Diagnoses Not on filedocumented in this encounter Care Teams Account Support Manager Relationship Specialty Start Date End Date Alfredo Aguiar MD [address] [place] [address] PCP - General Adolescent Medicine 10/16/22 10/19/22 Alfredo Aguiar MD [address] [place] [address] PCP - General Adolescent Medicine 10/20/22 documented as of this encounter
--- OUTSIDE RECORDS SUMMARY | 2025-05-08 14:09 | XMS_ITS | Encounter Summary ---
Author Organization [employer] ([place], [place], [place], [place]) Address [address] [place] [address] Care Team Providers Care Commis Chef Name Role Phone Alfredo Lackey MD Primary Care Provider + [phone] Alfredo Lackey MD Primary Care Provider + [phone] Encounter Details Date Type Department Care Team (Late st Contact Info) Description 05/23/2019 Transcribed Document [facility] [place] Family Medicine [facility] [place] [address] ProviderEryn MD [address] [place] [address] Social History Tobacco Use Types Packs/Day Years [...] Date 05/23/2019 Primary Care Provider ALFREDO LACKEY (REF)[facility] Discharge Diagnosis Left total knee arthroplasty [...] no output. Knee lagging extension Discharge Disposition snf facility Discharge Follow Up 3 weeks, Chris Ag. [facility] orthopedics Discharge Medications (13) Active bisoprolol 5 [...] Oral, Q4H Rocephin 2 Gram, IV Piggyback, [id number] duration per ID at [facility] Spiriva Respimat 2.5 mcg/inh inhalation aerosol [...] -- Start: 05/21/19 14:11:00 EDT, 60 gm carbs:[id number] randa, Isolation: Standard Precautions, Instructions: Diabetic Diet [...] Label By Order Location Electronically signed by [facility], [facility] Conversion Core Shaper Top Cerner at 11/18/2022 9:27 AM CDT documented in this encounter Plan of Treatment Not on file documented as of this encounter Visit Diagnoses Not on filedocumented in this encounter Care Teams Commis Chef Relationship Specialty Start Date End Date Alfredo Lackey MD [address] [place] [address] PCP - General Adolescent Medicine 10/16/22 10/19/22 Alfredo Lackey MD [address] [place] [address] PCP - General Adolescent Medicine 10/20/22 documented as of this encounter
--- OUTSIDE RECORDS SUMMARY | 2025-05-08 14:09 | XMS_ITS | Encounter Summary ---
Author Organization [employer] ([place], [place], [place], [place]) Address [address] [place] [address] Care Team Providers Care Irrigation Laborer Name Role Phone Alfredo Aguiar MD Primary Care Provider + [phone] Alfredo Aguiar MD Primary Care Provider + [phone] Encounter Details Date Type Department Care Team (Late st Contact Info) Description 05/22/2019 Transcribed Document [facility] [place] [address] ProviderEryn MD [address] [place] [address] Social History Tobacco Use Types Packs/Day Years [...] on filedocumented in this encounter Care Teams Irrigation Laborer Relationship Specialty Start Date End Date Alfredo Aguiar MD [address] [place] [address] PCP - General Adolescent Medicine 10/16/22 10/19/22 Alfredo Aguiar MD [address] [place] [address] PCP - General Adolescent Medicine 10/20/22 documented as of this encounter
--- OUTSIDE RECORDS SUMMARY | 2025-05-08 14:09 | XMS_ITS | Encounter Summary ---
Author Organization [employer] ([place], [place], [place], [place]) Address [address] [place] [address] Care Team Providers Care [place] Program Coordinator Name Role Phone Alfredo Aguiar MD Primary Care Provider + [phone] Alfredo Aguiar MD Primary Care Provider + [phone] Encounter Details Date Type Department Care Team (Late st Contact Info) Description 05/23/2019 Transcribed Document [facility] [place] [facility] [place] [address] ProviderEryn MD [address] [place] [address] Social History Tobacco Use Types Packs/Day Years [...] : 0 ADITYA CRUMP, ELICEO - 05/23/2019 16:30 EDT Image 4 - Images currently included in the form version of this document have not been included in the text rendition version of the form. documented in this encounter Plan of Treatment Not on file documented as of this encounter Visit Diagnoses Not on filedocumented in this encounter Care Teams [place] Program Coordinator Relationship Specialty Start Date End Date Alfredo Aguiar MD [address] [place] [address] PCP - General Adolescent Medicine 10/16/22 10/19/22 Alfredo Aguiar MD [address] [place] [address] PCP - General Adolescent Medicine 10/20/22 documented as of this encounter
--- OUTSIDE RECORDS SUMMARY | 2025-05-08 14:09 | XMS_ITS | Encounter Summary ---
Author Organization [employer] ([place], [place], [place], [place]) Address [address] [place] [address] Care Team Providers Care Student Accounts Manager Name Role Phone Alfredo Aguiar MD Primary Care Provider + [phone] Alfredo Aguiar MD Primary Care Provider + [phone] Encounter Details Date Type Department Care Team (Late st Contact Info) Description 08/19/2019 Transcribed Document [facility] [place] [facility] [place] [address] ProviderEryn MD [address] [place] [address] Social History Tobacco Use Types Packs/Day Years Used Date Smoking Tobacco: Never Assessed Sex and Gender Information Value Date Recorded Sex Assigned at Not on file Legal Sex Male 5:45 PM CDT Gender Identity Not on file Sexual Orientation Not on file documented as of this encounter Miscellaneous Notes * Cerner Conversion Note - Eryn Arcos MD - 08/19/2019 10:30 AM CONSULTANT LUXURY AND AUTO. VICE PRESIDENT [employer] (EX ) W[facility]N Inpatient Documentation Entered On: 08/19/2019 11:51 [...] 08/19/2019 11:48 EST Electronically signed by [place] [facility] Conversion Insurance Sales Representative Cerner at 11/18/2022 9:34 AM CDT documented in this encounter Plan of Treatment Not on file documented as of this encounter Visit Diagnoses Not on filedocumented in this encounter Care Teams Student Accounts Manager Relationship Specialty Start Date End Date Alfredo Aguiar MD [address] [place] [address] PCP - General Adolescent Medicine 10/16/22 10/19/22 Alfredo Aguiar MD [address] [place] [address] PCP - General Adolescent Medicine 10/20/22 documented as of this encounter
--- OUTSIDE RECORDS SUMMARY | 2025-05-08 14:09 | XMS_ITS | Encounter Summary ---
Author Organization [employer] ([place], [place], [place], [place]) Address [address] [place] [address] Care Team Providers Care Biological Photographer Name Role Phone Alfredo Aguiar MD Primary Care Provider + [phone] Alfredo Aguiar MD Primary Care Provider + [phone] Encounter Details Date Type Department Care Team (Late st Contact Info) Description 08/18/2019 Transcribed Document [facility] [place] Family Medicine [facility] [place] [address] ProviderEryn MD [address] [place] [address] Social History Tobacco Use Types Packs/Day Years Used Date Smoking Tobacco: Never Assessed Sex and Gender Information Value Date Recorded Sex Assigned at Not on file Legal Sex Male 5:45 PM CDT Gender Identity Not on file Sexual Orientation Not on file documented as of this encounter Miscellaneous Notes * Cerner Conversion Note - Eryn ProviderMD - 08/18/2019 1:35 PM CYTOTECHNOLOGIST/HISTOTECHNOLOGIST Treatment Intervention, OT Entered On: 08/19/2019 11:54 [...] unspecified artificial knee joint BRANDY MATHEW MADIE Herron 08/19/2019 12:08 EST Therapy Diagnosis, OT : Decreased independence with ADL's BRANDY MATHEWMADIE - 08/19/2019 11:52 EST Admission Date : 08/17/2019 07:12 BRANDY MATHEWMADIE 08/19/2019 12:08 EST Co-treated by, OT : training program assistant (GUN STRIPER) BRANDY MATHEW COTA - 08/19/2019 11:52 EST Personal Devices : Personal Devices No Devices Recorded Assistive Devices : Assistive Devices No Devices Recorded BRANDY MATHEWMADIE 08/19/2019 12:[address] : Fall prevention measures PRIYANKA BRANDYMADIE 08/19/2019 11:52 EST General Status Patient Received Status : Supine in bed Treatment Start Time : 08/19/2019 9:38 EST Patient Left Status : Up in chair, RN/PCT informed, Family/Visitors at bedside, All needs met and within reach Treatment End Time : 08/19/2019 10:22 EST Treatment Time : 44 Minute(s) PRIYANKA MADIE NAVA - 08/19/2019 11:52 EST Functional Mobility Mobility Grid Bed Roll Left : Supervision/set-up Bed Scooting : Rehab Minimal assistance Supine to Sit : Rehab Minimal assistance Sit to Stand : Rehab Minimal assistance BRANDY MATHEW COTA - 08/19/2019 11:52 EST Plan of Care, OT OT Tx Plan/Goals Established w Patient : Yes BRANDY MATHEW COTA - 08/19/2019 11:52 EST Long-Term Goals, OT Grooming LTG Grid Goal #1 Activity : Grooming Assist : Independent, modified Date to Meet : 09/01/2019 EST Goal Status : Initial goal BRANDY MATHEW COTA - 08/19/2019 11:52 EST Bathing LTG Grid Goal [...] supine in bed. FAmily present. Used leg chief physical therapist to get to EOB. SUP. Client stood with gaitbelt and RW at MIN A. Ambulate functional distance with chair follow. Had seated RB and was taken down to gym. Transfer to mat at MIN A. Participated in BLE ROM with PT. Client was ed on AE including a sales account specialist, sock aide, shoe horn and LHS. Client taken back to room. Up to recliner. CL in place. Joint middle school sports coach present during all of session Assessment [...] BRANDY MATHEW COTA - 08/19/2019 11:52 EST Ruso OT Charges RAMACHANDRAN OT Selfcare/Hm Mgmt Ea 15 Min-RAMACHANDRAN : 1 OT Ther Activities Ea 15 Min-RAMACHANDRAN : 2 BARNDY MATHEW COTA - 08/19/2019 11:52 EST documented in this encounter Plan of Treatment Not on file documented as of this encounter Visit Diagnoses Not on filedocumented in this encounter Care Teams Biological Photographer Relationship Specialty Start Date End Date Alfredo Aguiar MD [address] [place] [address] PCP - General Adolescent Medicine 10/16/22 10/19/22 Alfredo Aguiar MD [address] [place] [address] PCP - General Adolescent Medicine 10/20/22 documented as of this encounter
--- OUTSIDE RECORDS SUMMARY | 2025-05-08 14:09 | XMS_ITS | Encounter Summary ---
Author Organization [employer] ([place], [place], [place], [place]) Address [address] [place] [address] Care Team Providers Care Clean Rice Grader And Reel Tender Name Role Phone Alfredo Aguiar MD Primary Care Provider + [phone] Alfredo Aguiar MD Primary Care Provider + [phone] Encounter Details Date Type Department Care Team (Late st Contact Info) Description 05/21/2019 Transcribed Document [facility] [place] Family Medicine [address] [place] [address] ProviderEryn MD [address] [place] [address] Social History Tobacco Use Types Packs/Day Years [...] Oral, Daily cefTRIAXone 2 Gram, IV Piggyback, [id number] docusate sodium 100 mg cap 100 mg [...] % LOW Lymph # 0.36 x10(3)/uL LOW [place] % 8.3 % [place] # 0.79 K/uL Eos % 0.0 % [...] precautions -Sleep apnea precautions -Stress ulcer prophylaxis. Electronically signed by Wellington, [facility] Conversion Anchorer Cerner at 11/18/2022 9:14 AM CDT documented in this encounter Plan of Treatment Not on file documented as of this encounter Visit Diagnoses Not on filedocumented in this encounter Care Teams Clean Rice Grader And Reel Tender Relationship Specialty Start Date End Date Alfredo Aguiar MD [address] [place] [address] PCP - General Adolescent Medicine 10/16/22 10/19/22 Alfredo Aguiar MD [address] [place] [address] PCP - General Adolescent Medicine 10/20/22 documented as of this encounter
--- OUTSIDE RECORDS SUMMARY | 2025-05-08 14:09 | XMS_ITS | Encounter Summary ---
Author Organization [employer] ([place], [place], [place], [place]) Address [address] [facility] [place] [address] Care Team Providers Care Pie Crust Mixer Name Role Phone Alfredo Aguiar MD Primary Care Provider + [phone] Alfredo Aguiar MD Primary Care Provider + [phone] Encounter Details Date Type Department Care Team (Late st Contact Info) Description 08/20/2019 Transcribed Document [facility] 1 [place] [address] Massimo Butterfield MD [address] [place] [address] Social History Tobacco Use Types Packs/Day [...] gas. He is eager for [facility] to [facility]. 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:52 - HERMAN LARSEN, [...] 55 (AUG 20 06:00) L 51 (AUG 20:17) 81 (AUG 19 11:04) MAP 71 (AUG [...] 20) L 134 (AUG 19) 136 (AUG 18) 138 (AUG 04) K 4.5 (AUG 20) 4.6 (AUG 19) 4.4 (AUG 18) 5.0 (AUG 04) Cl 102 (AUG 18) L 101 (AUG 19) 102 (AUG 18) 103 (AUG 02) CO2 31 (AUG 20) 29 (AUG 19) [...] regimen continue incentive spirometer PT/OT- inpatient at [facility] Pain management deferred to surgeon resume outpatient medication regimen for comorbidities assessment and treatment plan made in conjunction with Yissel Butterfield MD Scribed by Renetta Solomon documented in this encounter Plan of Treatment Not on file documented as of this encounter Visit Diagnoses Not on filedocumented in this encounter Care Teams Pie Crust Mixer Relationship Specialty Start Date End Date Alfredo Aguiar MD [address] [place] [address] PCP - General Adolescent Medicine 10/16/22 10/19/22 Alfredo Aguiar MD [address] [place] [address] PCP - General Adolescent Medicine 10/20/22 documented as of this encounter
--- OUTSIDE RECORDS SUMMARY | 2025-05-08 14:09 | XMS_ITS | Encounter Summary ---
Author Organization [employer] ([place], [place], [place], [place]) Address [address] [place] [address] Care Team Providers Care Assistant Printer Floor Covering Name Role Phone Alfredo Aguiar MD Primary Care Provider + [phone] Alfredo Aguiar MD Primary Care Provider + [phone] Encounter Details Date Type Department Care Team (Late st Contact Info) Description 08/20/2019 Transcribed Document [facility] [place] Family Medicine [facility] [place] [address] ProviderEryn MD [address] [place] [address] Social History Tobacco Use Types Packs/Day Years Used Date Smoking Tobacco: Never Assessed Sex and Gender Information Value Date Recorded Sex Assigned at Not on file Legal Sex Male 5:45 PM CDT Gender Identity Not on file Sexual Orientation Not on file documented as of this encounter Miscellaneous Notes * Cerner Conversion Note - Eryn Arcos MD - 08/20/2019 12:29 PM PRICING ASSOCIATE Nursing Discharge Summary Entered On: 08/20/2019 12:31 EST Performed On: 08/20/2019 12:29 EST by KASSANDRA MEADOWS LPN Discharge Documentation Discharge Date/Time : 08/20/2019 13:00 EST Patient Disposition, General : Discharge Discharge To : Rehabilitation unit/facility Name of Receiving Facility/Provider : [place] Mode Of Departure, General Discharge : Private [...] - 08/20/2019 12:29 EST Electronically signed by [facility], [facility] Conversion Automotive Parts Manager Cerner at 11/18/2022 9:15 AM CDT documented in this encounter Plan of Treatment Not on file documented as of this encounter Visit Diagnoses Not on filedocumented in this encounter Care Teams Assistant Printer Floor Covering Relationship Specialty Start Date End Date Alfredo Aguiar MD [address] [place] [address] PCP - General Adolescent Medicine 10/16/22 10/19/22 Alfredo Aguiar MD [address] [place] [address] PCP - General Adolescent Medicine 10/20/22 documented as of this encounter
--- OUTSIDE RECORDS SUMMARY | 2025-05-08 14:09 | XMS_ITS | Encounter Summary ---
Author Organization [employer] ([place], [place], [place], [place]) Address [address] [facility] [place] [address] Care Team Providers Care Sales Representative Livestock Name Role Phone Alfredo Aguiar MD Primary Care Provider + [phone] Alfredo Aguiar MD Primary Care Provider + [phone] Encounter Details Date Type Department Care Team (Late st Contact Info) Description 05/22/[address] [facility] 1 [place] [address] Lion Allison MD [address] [place] [address] Social History Tobacco Use Types Packs/Day Years [...] Diagnoses: None Author: LION ALLISON MD-ORT [facility] Progress Note SUBJECTIVE No events overnight. [...] filedocumented in this encounter Care Teams Sales Representative Livestock Relationship Specialty Start Date End Date Alfredo Aguiar MD [address] [place] [address] PCP - General Adolescent Medicine 10/16/22 10/19/22 Alfredo Aguiar MD [address] [place] [address] PCP - General Adolescent Medicine 10/20/22 documented as of this encounter
--- OUTSIDE RECORDS SUMMARY | 2025-05-08 14:09 | XMS_ITS | Encounter Summary ---
Author Organization [employer] ([place], [place], [place], [place]) Address [address] [place] [address] Care Team Providers Care Tennis Ball Coverer Hand Name Role Phone Alfredo Aguiar MD Primary Care Provider + [phone] Alfredo Aguiar MD Primary Care Provider + [phone] Encounter Details Date Type Department Care Team (Late st Contact Info) Description 08/20/2019 Transcribed Document [facility] [place] Family Medicine [place] [address] ProviderEryn MD [address] [place] [address] Social History Tobacco Use Types Packs/Day Years Used Date Smoking Tobacco: Never Assessed Sex and Gender Information Value Date Recorded Sex Assigned at Not on file Legal Sex Male 5:45 PM CDT Gender Identity Not on file Sexual Orientation Not on file documented as of this encounter Miscellaneous Notes * Cerner Conversion Note - Historical ProviderMD - 08/20/2019 1:55 PM CLINIC LICENSED PRACTICAL NURSE Discharge Summary, PT Entered On: 08/20/2019 13:56 EST Performed On: 08/20/2019 13:55 EST by SHARON WALTON PTA Discharge Summary Discharge Summary Provider Notified : Physical Therapy Reason for Discharge : Discharged from hospital Discharged to, Therapy : Unit[facility] SHARON WALTON PTA - 08/20/2019 13:55 EST Discharge Summary Comment, PT : Patient was min assist for all transfers ambulates 56ft with RWx min assist and chair follow Patient has not met 3 LTGs and would benefit from continued PT. PT agrees with written D/MARLENE Guidry, PT - 08/20/2019 15:03 EST Shelter Goals Mobility/Bed Mobility LTG PT Grid Goal [...] - 08/20/2019 13:55 EST Electronically signed by [facility], [facility] Conversion Power Hair Clipper Cerner at 11/18/2022 9:20 AM CDT documented in this encounter Plan of Treatment Not on file documented as of this encounter Visit Diagnoses Not on filedocumented in this encounter Care Teams Tennis Ball Coverer Hand Relationship Specialty Start Date End Date Alfredo Aguiar MD [address] [place] [address] PCP - General Adolescent Medicine 10/16/22 10/19/22 Alfredo Aguiar MD [address] [place] [address] PCP - General Adolescent Medicine 10/20/22 documented as of this encounter
--- OUTSIDE RECORDS SUMMARY | 2025-05-08 14:09 | XMS_ITS | Encounter Summary ---
Author Organization [employer] ([place], [place], [place], [place]) Address [address] [place] [address] Care Team Providers Care Farm Helper Name Role Phone Alfredo Aguiar MD Primary Care Provider + [phone] Alfredo Aguiar MD Primary Care Provider + [phone] Encounter Details Date Type Department Care Team (Late st Contact Info) Description 05/23/2019 Transcribed Document [facility] [place] [facility] [place] [address] ProviderEryn MD [address] [place] [address] Social History Tobacco Use Types Packs/Day Years [...] On: 05/23/2019 13:23 EDT by JUANY HERNANDEZ RN-Home Supervisor Final Discharge Planning Discharge Arrangements : Patient Post-Acute Information Patient Name: LORA VÁZQUEZ JR Gender: Male : [birth year] Age: 78 Years Justin Referral(s): Service: Organization: Business Address: Phone Number: Half-Way Facility [facility] [address] [place], [address] Patient Offered Choice/Affiliations Explained : Yes Designation of Choice Signed : Yes Important Medicare Message Reviewed With : Patient Important Medicare Message Reviewed D/T : 05/23/2019 8:30 EDT Transportation Needs : Wheelchair van Discharge Transportation Arrangement Cmt : ESTELLA Van @ [phone] Follow Up Appointment Scheduled : Yes Is Patient High/Moderate Readmission Risk? : No Patient/Family Notified of Plan : Yes Support Person/Pt Rep Notified of Plan : Yes Is Patient Ready for Discharge? : Yes Physician Notified Patient is Ready for Discharge? : Yes Discharge To Care Management : SNF with Medicare Certification-03 JUANY HERNANDEZ, RN-Home Supervisor - 05/23/2019 13:23 EDT Electronically signed by [place], [facility] Conversion Radio Repairer Domestic Cerner at 11/18/2022 9:26 AM CDT documented in this encounter Plan of Treatment Not on file documented as of this encounter Visit Diagnoses Not on filedocumented in this encounter Care Teams Farm Helper Relationship Specialty Start Date End Date Alfredo Aguiar MD [address] [place] [address] PCP - General Adolescent Medicine 10/16/22 10/19/22 Alfredo Aguiar MD [address] [place] [address] PCP - General Adolescent Medicine 10/20/22 documented as of this encounter
--- OUTSIDE RECORDS SUMMARY | 2025-05-08 14:09 | XMS_ITS | Encounter Summary ---
Author Organization [facility] Address [address] [place] [address] Care Team Providers Care Diesel Automotive Technician Name Role Phone Alfredo Aguiar MD Primary Care Provider [phone] Reason for Visit * Reason Comments Med Refill Encounter Details Date Type Department Care Team (Late st Contact Info) Description 10/07/2023 Refill [facility] [address] [place] [address] Lizzie Farmer, FIRE MANAGER [address] [facility] [address] [place] [address] Vitamin D deficiency Social History [...] AM EDT Office Visit [facility] [address] [place] [address] Neena Fields, FIRE MANAGER [address] [facility] [address] [place] [address] documented as of this encounter Visit Diagnoses Diagnosis Vitamin D deficiency documented in this encounter Additional Health Concerns Assessment Noted Time A fall risk assessment has been complete d for the patient 2023 10:33 AM EST A Body Mass Index follow-up plan has been documented for the patient 2023 12:25 PM EST documented as of this encounter Care Teams Diesel Automotive Technician Relationship Specialty Start Date End Date Alfredo Aguiar MD [address] [place] [address] PCP - General 12/14/20 documented as of this encounter
--- OUTSIDE RECORDS SUMMARY | 2025-05-08 14:09 | XMS_ITS | Encounter Summary ---
Author Organization [employer] ([place], [place], [place], [place]) Address [address] [place] [address] Care Team Providers Care Salon/Spa Manager Name Role Phone Alfredo Aguiar MD Primary Care Provider + [phone] Alfredo Aguiar MD Primary Care Provider + [phone] Encounter Details Date Type Department Care Team (Late st Contact Info) Description 08/18/2019 Transcribed Document [facility] [place] [facility] [place] [address] ProviderEryn MD [address] [place] [address] Social History Tobacco Use Types Packs/Day Years Used Date Smoking Tobacco: Never Assessed Sex and Gender Information Value Date Recorded Sex Assigned at Not on file Legal Sex Male 5:45 PM CDT Gender Identity Not on file Sexual Orientation Not on file documented as of this encounter Miscellaneous Notes * Cerner Conversion Note - Eryn Arcos MD - 08/18/2019 5:54 AM MACHINE SPECIALIST Patient: LORA JAIN JR Age: 78 [...] alive and healthy SH: , lives in [place], [place]. Denies tobacco, alcohol, or illicit drug [...] 55 (AUG 17 11:25) L 55 (AUG 17:) Mon HR 74 (AUG 18 04:00) 58 (AUG 17 11:06) 83 (AUG 17:07) Resp Rate 16 (AUG 18 04:00) L 10 (AUG 17:) 18 (AUG 17:) SBP 98 (AUG 18 04:00) 98 (AUG 18 04:00) 137 (AUG 17 17:10) DBP L 52 (AUG 18 04:00) L 50 (AUG 17:) 74 (AUG 17:) MAP 65 (AUG 18 04:00) 65 (AUG [...] with the above. Electronically signed by [place], [facility] Conversion Chief Of Vital Statistics Cerner at 11/18/2022 9:14 AM CDT documented in this encounter Plan of Treatment Not on file documented as of this encounter Visit Diagnoses Not on filedocumented in this encounter Care Teams Salon/Spa Manager Relationship Specialty Start Date End Date Alfredo Aguiar MD [address] [place] [address] PCP - General Adolescent Medicine 10/16/22 10/19/22 Alfredo Aguiar MD [address] [place] [address] PCP - General Adolescent Medicine 10/20/22 documented as of this encounter
--- OUTSIDE RECORDS SUMMARY | 2025-05-08 14:09 | XMS_ITS | Encounter Summary ---
Author Organization [employer] ([place], [place], [place], [place]) Address [address] [place] [address] Care Team Providers Care Poker Dealer Name Role Phone Alfredo Aguiar MD Primary Care Provider + [phone] Alfredo Aguiar MD Primary Care Provider + [phone] Encounter Details Date Type Department Care Team (Late st Contact Info) Description 05/21/2019 Transcribed Document [facility] [place] Family Medicine [facility] [place] [address] ProviderEryn MD [address] [place] [address] Social History Tobacco Use Types Packs/Day Years [...] on filedocumented in this encounter Care Teams Poker Dealer Relationship Specialty Start Date End Date Alfredo Aguiar MD [address] [place] [address] PCP - General Adolescent Medicine 10/16/22 10/19/22 Alfredo Aguiar MD [address] [place] [address] PCP - General Adolescent Medicine 10/20/22 documented as of this encounter
--- OUTSIDE RECORDS SUMMARY | 2025-05-08 14:09 | XMS_ITS | Encounter Summary ---
Author Organization [employer] ([place], [place], [place], [place]) Address [address] [place] [address] Care Team Providers Care Entry Level Financial Analyst Name Role Phone Alfredo Aguiar MD Primary Care Provider + [phone] Alfredo Aguiar MD Primary Care Provider + [phone] Encounter Details Date Type Department Care Team (Late st Contact Info) Description 05/21/2019 Transcribed Document [facility] [place] [facility] [place] [address] ProviderEryn MD [address] [place] [address] Social History Tobacco Use Types Packs/Day Years Used Date Smoking Tobacco: Never Assessed Sex and Gender Information Value Date Recorded Sex Assigned at Not on file Legal Sex Male 5:45 PM CDT Gender Identity Not on file Sexual Orientation Not on file documented as of this encounter Miscellaneous Notes * Cerner Conversion Note - Eryn Arcos MD - 05/21/2019 12:00 AM CDT Pain Assessment [...] on filedocumented in this encounter Care Teams Entry Level Financial Analyst Relationship Specialty Start Date End Date Alfredo Aguiar MD [address] [place] [address] PCP - General Adolescent Medicine 10/16/22 10/19/22 Alfredo Aguiar MD [address] [place] [address] PCP - General Adolescent Medicine 10/20/22 documented as of this encounter
--- OUTSIDE RECORDS SUMMARY | 2025-05-08 14:09 | XMS_ITS | Encounter Summary ---
Author Organization [employer] ([place], [place], [place], [place]) Address [address] [place] [address] Care Team Providers Care Emergency Room Physician Name Role Phone Alfredo Aguiar MD Primary Care Provider + [phone] Alfredo Aguiar MD Primary Care Provider + [phone] Encounter Details Date Type Department Care Team (Late st Contact Info) Description 05/21/2019 Transcribed Document [facility] [place] Family [place] [facility] [place] [address] ProviderEryn MD [address] [place] [address] Social History Tobacco Use Types Packs/Day Years [...] Insurance 1 Health Plan: MEDICARE Policy Number: [id number] Authorization Number: Insurance 2 Health Plan: FOR LIFE Policy Number: [id number] Authorization Number: Insurance Primary Name : MEDICARE Policy Number: [id number] Historical Authorization Comments-Primary : No Authorization Comments Found KAUR VAUGHAN RN - 05/21/2019 10:06 EDT documented in this encounter Plan of Treatment Not on file documented as of this encounter Visit Diagnoses Not on filedocumented in this encounter Care Teams Emergency Room Physician Relationship Specialty Start Date End Date Alfredo Aguiar MD [address] [place] [address] PCP - General Adolescent Medicine 10/16/22 10/19/22 Alfredo Aguiar MD [address] [place] [address] PCP - General Adolescent Medicine 10/20/22 documented as of this encounter
--- OUTSIDE RECORDS SUMMARY | 2025-05-08 14:09 | XMS_ITS | Encounter Summary ---
Author Organization [employer] ([place], [place], [place], [place]) Address [address] [facility] [place] [address] Care Team Providers Care Pot Maker Name Role Phone Alfredo Aguiar MD Primary Care Provider + [phone] Alfredo Aguiar MD Primary Care Provider + [phone] Encounter Details Date Type Department Care Team (Late st Contact Info) Description 08/19/2019 Transcribed Document [facility] [address] [place] [address] Massimo Butterfield MD [address] [place] [address] Social History Tobacco Use Types Packs/Day [...] therapy. He has a bed available at [facility] in [place] and will discharge tomorrow for rehab. No cough, dyspnea, fever/chills, n/v or dysuria. Bowels have not yet moved but patient is passing gas and tolerating a PO diet. Daughter request probiotic while patient remains on antibiotics. HPI: Patient is an 78 [facility] 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
--- OUTSIDE RECORDS SUMMARY | 2025-05-08 14:09 | XMS_ITS | Encounter Summary ---
Author Organization [employer] ([place], [place], [place], [place]) Address [address] [place] [address] Care Team Providers Care Signal Technician Name Role Phone Alfredo Lackey MD Primary Care Provider + [phone] Alfredo Lackey MD Primary Care Provider + [phone] Encounter Details Date Type Department Care Team (Late st Contact Info) Description 08/20/2019 Transcribed Document [facility] [place] Family Medicine [facility] [place] [address] ProviderEryn MD [address] [place] [address] Social History Tobacco Use Types Packs/Day Years Used Date Smoking Tobacco: Never Assessed Sex and Gender Information Value Date Recorded Sex Assigned at Not on file Legal Sex Male 5:45 PM CDT Gender Identity Not on file Sexual Orientation Not on file documented as of this encounter Miscellaneous Notes * Cerner Conversion Note - Eryn Arcos MD - 08/20/2019 12:32 PM [place]AD[place] [address] LORA JAIN JR :1940 Visit Time:08/17/2019 Your Visit Summary Your Care Team Admitting Physician - LION ALLISON MD-ORT Attending Physician - LION ALLISON MD-ORT Primary Care Physician - ALFREDO LACKEY (REF)MD-NATHANIEL Referring Physician - LION ALLISON MD-ORT PHY, [...] Team Discharge Follow Up Instructions: Continue LEON telloe for 6 weeks Follow Up Instructions: Follow-up Dr. Allison 1 wk ([phone]) on Follow-Up Appointments Follow Up with WENDIE DONATO When 08/25/2019 11:45 AM EST Where: [address] [facility] [address] [place] [phone] Business (1) Follow Up with LION ALLISON MD-ORT When 08/25/2019 12:00 AM EST Comments call to schedule time of appointment on , 2019 Where: [address] [place] [address]- Medications What How Much When [...] of Dr. Allison or Dr. Haskins, call [phone] If you are a patient of Dr. Coello, call [phone] Nurse Navigator: Sil Rodriguez Office: [phone]; ; available during regular business hours Total Knee Replacement, Care After These instructions give you information about caring for yourself after your procedure. Your doctor may also give you more specific instructions. Call your doctor if you have any problems or questions after your procedure. Follow these instructions at home: Medicines ??? Take kkrq-gbt-unafqvr and prescription medicines only as told by [...] cannot use soap and water, use hand chemist biological. ? Change your bandage as told by [...] 10/11/2012 Document Revised: 09/07/2017 Document Reviewed: 06/25/2016 [employer] Patient Education ?? 2019 [employer] gabapentin (GA ba PEN tin) Gralise, [...] are a day sleeper or work a table games shift manager. Some people have thoughts about [...] may report side effects to FDA at 5-250-WDH-8103. What other drugs will affect gabapentin? Taking gabapentin with other drugs that make you sleepy can worsen this effect. Ask your doctor before taking a sleeping pill, narcotic medication, muscle relaxer, or medicine for anxiety, depression, or seizures. Other drugs may interact with gabapentin, including prescription and ztkg-jsu-zpegtdb medicines, vitamins, and herbal products. Tell your [...] to ensure that the information provided by [employer]') is accurate, up-to-date, and complete, but no guarantee is made to that effect. Drug information contained herein may be time sensitive. [employer] information has been compiled for use by healthcare practitioners and consumers in the [place] and therefore [employer] does not warrant that uses outside of the [place] are appropriate, unless specifically indicated otherwise. [employer] drug information does not endorse drugs, diagnose patients or recommend therapy. [employer] drug information is an informational resource designed [...] effective or appropriate for any given patient. [employer] does not assume any responsibility for any aspect of healthcare administered with the aid of information [employer] provides. The information contained herein is not intended to cover all possible uses, directions, precautions, warnings, drug interactions, allergic reactions, or adverse effects. If you have questions about the drugs you are taking, check with your doctor, nurse or pharmacist. Copyright 8899-6422 [employer]. Version: 14.. Revision Date: 05/12/2017. amoxicillin (am [...] is sometimes used with a stomach acid livestock sales representative called lansoprazole (Prevacid). There are many brands [...] may report side effects to FDA at 1-973-QIP-1331. What other drugs will affect amoxicillin? Other drugs may interact with amoxicillin, including prescription and ggdw-euk-nsdvffc medicines, vitamins, and herbal products. Tell each [...] to ensure that the information provided by [employer]') is accurate, up-to-date, and complete, but no guarantee is made to that effect. Drug information contained herein may be time sensitive. [employer] information has been compiled for use by healthcare practitioners and consumers in the [place] and therefore [employer] does not warrant that uses outside of the [place] are appropriate, unless specifically indicated otherwise. [employer] drug information does not endorse drugs, diagnose patients or recommend therapy. [employer] drug information is an informational resource designed [...] effective or appropriate for any given patient. [facility] does not assume any responsibility for any aspect of healthcare administered with the aid of information [facility] provides. The information contained herein is not intended to cover all possible uses, directions, precautions, warnings, drug interactions, allergic reactions, or adverse effects. If you have questions about the drugs you are taking, check with your doctor, nurse or pharmacist. Copyright 2804-[address] [facility]. Version: 9.05. Revision Date: 02/22/2016. aspirin (oral) [...] What is aspirin? Aspirin is a salicylate (yx-ZUV-st-ate). It works by reducing substances in the [...] may report side effects to FDA at 3-433-ZOR-1744. What other drugs will affect aspirin? Ask [...] drugs may affect aspirin, including prescription and qsgv-whp-zgfzkpy medicines, vitamins, and herbal products. Not all [...] to ensure that the information provided by [employer]') is accurate, up-to-date, and complete, but no guarantee is made to that effect. Drug information contained herein may be time sensitive. [employer] information has been compiled for use by healthcare practitioners and consumers in the [place] and therefore [employer] does not warrant that uses outside of the [place] are appropriate, unless specifically indicated otherwise. [employer] drug information does not endorse drugs, diagnose patients or recommend therapy. [employer] drug information is an informational resource designed [...] effective or appropriate for any given patient. [facility] does not assume any responsibility for any aspect of healthcare administered with the aid of information [facility] provides. The information contained herein is not intended to cover all possible uses, directions, precautions, warnings, drug interactions, allergic reactions, or adverse effects. If you have questions about the drugs you are taking, check with your doctor, nurse or pharmacist. Copyright 7603-6322 [employer] [facility] [employer]. Version: .. Revision Date: 11/02/2017. ferrous gluconate [...] may report side effects to FDA at 0-638-FEV-9864. What other drugs will affect ferrous gluconate? Other drugs may interact with ferrous gluconate, including prescription and ugeh-saw-dzzhwxl medicines, vitamins, and herbal products. Tell your [...] to ensure that the information provided by [employer]') is accurate, up-to-date, and complete, but no guarantee is made to that effect. Drug information contained herein may be time sensitive. [employer] information has been compiled for use by healthcare practitioners and consumers in the [place] and therefore [employer] does not warrant that uses outside of the [place] are appropriate, unless specifically indicated otherwise. [employer] drug information does not endorse drugs, diagnose patients or recommend therapy. [employer] drug information is an informational resource designed [...] effective or appropriate for any given patient. [employer] does not assume any responsibility for any aspect of healthcare administered with the aid of information [employer] provides. The information contained herein is not intended to cover all possible uses, directions, precautions, warnings, drug interactions, allergic reactions, or adverse effects. If you have questions about the drugs you are taking, check with your doctor, nurse or pharmacist. Copyright 0606-4525 [employer]. Version: 2.01. Revision Date: 04/28/2017. acetaminophen and [...] may report side effects to FDA at 8-715-OJF-1844. What other drugs will affect acetaminophen and [...] affect acetaminophen and oxycodone, including prescription and mhba-wpw-ixuxrga medicines, vitamins, and herbal products. Not all [...] to ensure that the information provided by [employer]') is accurate, up-to-date, and complete, but no guarantee is made to that effect. Drug information contained herein may be time sensitive. [employer] information has been compiled for use by healthcare practitioners and consumers in the [place] and therefore [employer] does not warrant that uses outside of the [place] are appropriate, unless specifically indicated otherwise. [employer] drug information does not endorse drugs, diagnose patients or recommend therapy. [employer] drug information is an informational resource designed [...] effective or appropriate for any given patient. [employer] does not assume any responsibility for any aspect of healthcare administered with the aid of information [employer] provides. The information contained herein is not intended to cover all possible uses, directions, precautions, warnings, drug interactions, allergic reactions, or adverse effects. If you have questions about the drugs you are taking, check with your doctor, nurse or pharmacist. Copyright 1711-6725 [employer]. Version: 18.02. Revision Date: 06/30/2018. docusate (oral/rectal) [...] filedocumented in this encounter Care Teams Signal Technician Relationship Specialty Start Date End Date Alfredo Lackey MD [address] [place] [address] PCP - General Adolescent Medicine 10/16/22 10/19/22 Alfredo Lackey MD [address] [place] [address] PCP - General Adolescent Medicine 10/20/22 documented as of this encounter
--- OUTSIDE RECORDS SUMMARY | 2025-05-08 14:09 | XMS_ITS | Encounter Summary ---
Author Organization [employer] ([place], [place], [place], [place]) Address [address] [place] [address] Care Team Providers Care Fruit Grading Supervisor Name Role Phone Alfredo Aguiar MD Primary Care Provider + [phone] Alfredo Aguiar MD Primary Care Provider + [phone] Encounter Details Date Type Department Care Team (Late st Contact Info) Description 05/22/2019 Transcribed Document [facility] [place] [address] [place] [address] ProviderEryn MD [address] [place] [address] Social History Tobacco Use Types Packs/Day Years [...] Performed On: 05/22/2019 18:51 EDT by Marcelina Bojorquez RN Intervention Information: acetaminophen Performed by Marcelina [...] on filedocumented in this encounter Care Teams Fruit Grading Supervisor Relationship Specialty Start Date End Date Alfredo Aguiar MD [address] [place] [address] PCP - General Adolescent Medicine 10/16/22 10/19/22 Alfredo Aguiar MD [address] [place] [address] PCP - General Adolescent Medicine 10/20/22 documented as of this encounter
--- OUTSIDE RECORDS SUMMARY | 2025-05-08 14:09 | XMS_ITS | Encounter Summary ---
Author Organization [employer] ([place], [place], [place], [place]) Address [address] [place] [address] Care Team Providers Care Wearing Apparel Shaker Name Role Phone Alfredo Aguiar MD Primary Care Provider + [phone] Alfredo Aguiar MD Primary Care Provider [phone] Encounter Details Date Type Department Care Team (Late st Contact Info) Description 08/19/2019 Transcribed Document [facility] [place] [facility] [place] [address] ProviderEryn MD [address] [place] [address] Social History Tobacco Use Types Packs/Day Years Used Date Smoking Tobacco: Never Assessed Sex and Gender Information Value Date Recorded Sex Assigned at Not on file Legal Sex Male 5:45 PM CDT Gender Identity Not on file Sexual Orientation Not on file documented as of this encounter Miscellaneous Notes * Nicolas Conversion Note - Eryn ProviderMD - 08/19/2019 5:00 AM STANDPIPE TENDER Chart Check - Review Order Profile Entered On: 08/19/2019 5:50 EST Performed On: 08/19/2019 5:00 EST by Jess Reno Chart Check Powerplans Initiated/Discontinued as Appropriate : Yes All Active Orders Reviewed : Yes Jess Reno - 08/19/2019 5:50 EST documented in this encounter Plan of Treatment Not on file documented as of this encounter Visit Diagnoses Not on filedocumented in this encounter Care Teams Wearing Apparel Shaker Relationship Specialty Start Date End Date Alfredo Aguiar MD [address] [place] [address] PCP - General Adolescent Medicine 10/16/22 10/19/22 Alfredo Aguiar MD [address] [place] [address] PCP - General Adolescent Medicine 10/20/22 documented as of this encounter
--- OUTSIDE RECORDS SUMMARY | 2025-05-08 14:09 | XMS_ITS | Encounter Summary ---
Author Organization [employer] ([place], [place], [place], [place]) Address [address] [place] [address] Care Team Providers Care Graduate Civil Engineer Name Role Phone Alfredo Lackey MD Primary Care Provider + [phone] Alfredo Lackey MD Primary Care Provider + [phone] Encounter Details Date Type Department Care Team (Late st Contact Info) Description 05/23/2019 Transcribed Document [facility] [place] [facility] [place] [address] ProviderEryn MD [address] [place] [address] Social History Tobacco Use Types Packs/Day Years Used Date Smoking Tobacco: Never Assessed Sex and Gender Information Value Date Recorded Sex Assigned at Not on file Legal Sex Male 5:45 PM CDT Gender Identity Not on file Sexual Orientation Not on file documented as of this encounter Miscellaneous Notes * Cerner Conversion Note - Eryn Arcos MD - 05/23/2019 3:[address] [facility] [place] [address] LORA JAIN JR :1940 Visit Time:05/20/2019 Your Visit Summary Your Care Team Admitting Physician - LION DAVIS MD-ORT Attending Physician - LION DAVIS MD-ORElizabeth Primary Care Physician - ALFREDO LACKEY (REF)[facility] [place] Referring Physician - LION DAVIS MD-ORT PHY, [...] When 05/31/2019 11:15 AM EDT Where: [address] [facility] [address] [place] [address]- Follow Up with LION DAVIS MD-ORT When Within 3 weeks [facility] [address] [facility] [place] [address]- Medications What How Much When [...] medicines at the same time (including some eygy-trc-scyedir medicines). It is very important to tell [...] may report side effects to FDA at 2-699-MLK-5756. What other drugs will affect apixaban? Sometimes it is not safe to use certain medications at the same time. Some drugs can affect your blood levels of other drugs you take, which may increase side effects or make the medications less effective. Many other drugs (including some uwdm-yys-gazbmpt medicines) can increase your risk of bleeding [...] ?? an NSAID (nonsteroidal anti-inflammatory drug) used vermin exterminator. This list is not complete and many other drugs may affect apixaban. This includes prescription and pjvn-qny-lpfqwgz medicines, vitamins, and herbal products. Not all [...] to ensure that the information provided by [employer]. ('[employer]') is accurate, up-to-date, and complete, but no guarantee is made to that effect. Drug information contained herein may be time sensitive. [employer] information has been compiled for use by healthcare practitioners and consumers in the [place] and therefore [employer] does not warrant that uses outside of the [place] are appropriate, unless specifically indicated otherwise. [employer]'s drug information does not endorse drugs, diagnose patients or recommend therapy. [employer] drug information is an informational resource designed [...] effective or appropriate for any given patient. [employer] does not assume any responsibility for any aspect of healthcare administered with the aid of information [employer] provides. The information contained herein is not intended to cover all possible uses, directions, precautions, warnings, drug interactions, allergic reactions, or adverse effects. If you have questions about the drugs you are taking, check with your doctor, nurse or pharmacist. Copyright 5709-8137 [employer]. Version: 4.01. Revision Date: 01/21/2019. docusate (oral/rectal) [...] may report side effects to FDA at 1-998-OFS-9887. What other drugs will affect docusate? Other drugs may affect docusate, including prescription and rcwq-mpx-odtotnr medicines, vitamins, and herbal products. Tell your [...] to ensure that the information provided by [employer] ('[employer]') is accurate, up-to-date, and complete, but no guarantee is made to that effect. Drug information contained herein may be time sensitive. [employer] information has been compiled for use by healthcare practitioners and consumers in the [place] and therefore [employer] does not warrant that uses outside of the [place] are appropriate, unless specifically indicated otherwise. [employer] drug information does not endorse drugs, diagnose patients or recommend therapy. [employer] drug information is an informational resource designed [...] effective or appropriate for any given patient. [employer] does not assume any responsibility for any aspect of healthcare administered with the aid of information [employer] provides. The information contained herein is not intended to cover all possible uses, directions, precautions, warnings, drug interactions, allergic reactions, or adverse effects. If you have questions about the drugs you are taking, check with your doctor, nurse or pharmacist. Copyright 3037-6523 [employer]. Version: 4.01. Revision Date: 02/07/2019. acetaminophen and [...] may report side effects to FDA at 3-892-DKN-0619. What other drugs will affect acetaminophen and [...] affect acetaminophen and oxycodone, including prescription and qzrp-vhy-swauozp medicines, vitamins, and herbal products. Not all [...] to ensure that the information provided by [employer] ('[employer]') is accurate, up-to-date, and complete, but no guarantee is made to that effect. Drug information contained herein may be time sensitive. [employer] information has been compiled for use by healthcare practitioners and consumers in the [place] and therefore [employer] does not warrant that uses outside of the [place] are appropriate, unless specifically indicated otherwise. [employer] drug information does not endorse drugs, diagnose patients or recommend therapy. [employer] drug information is an informational resource designed [...] effective or appropriate for any given patient. [employer] does not assume any responsibility for any aspect of healthcare administered with the aid of information [employer] provides. The information contained herein is not intended to cover all possible uses, directions, precautions, warnings, drug interactions, allergic reactions, or adverse effects. If you have questions about the drugs you are taking, check with your doctor, nurse or pharmacist. Copyright 6555-6578 [employer] Version: 18.02. Revision Date: 06/30/2018. ferrous sulfate (FARE us SUL fate) Feosol, Maksim-Gen-Kaylee, Maksim-In-Kaylee, Maksim-Iron, FeroSul, Ferra Karlene Johnson Caps, Ferrousal, Lydia E. Pinkham, MyKidz Iron 10, Slow Fe, Slow Release [...] may report side effects to FDA at 4-208-KUA-2504. What other drugs will affect ferrous sulfate? [...] all medications you use. This includes prescription, clhx-bqi-enmmztr, vitamin, and herbal products. Do not start [...] to ensure that the information provided by [employer]. ('[employer]') is accurate, up-to-date, and complete, but no guarantee is made to that effect. Drug information contained herein may be time sensitive. [employer] information has been compiled for use by healthcare practitioners and consumers in the [place] and therefore [employer] does not warrant that uses outside of the [place] are appropriate, unless specifically indicated otherwise. [employer]'s drug information does not endorse drugs, diagnose patients or recommend therapy. [employer] drug information is an informational resource designed [...] effective or appropriate for any given patient. [employer] does not assume any responsibility for any aspect of healthcare administered with the aid of information [employer] provides. The information contained herein is not intended to cover all possible uses, directions, precautions, warnings, drug interactions, allergic reactions, or adverse effects. If you have questions about the drugs you are taking, check with your doctor, nurse or pharmacist. Copyright 3119-9922 [employer]. Version: 4.03. Revision Date: 10/31/2011. Emergency Awareness [...] Assistance with quitting is available by contacting 5-465-EIZCGoIP InternationalNOW. This is a free resource providing counseling, support, and referral. Or you may contact your personal physician. National Suicide Prevention Lifeline: The National Suicide Prevention [...] range between ( 0.0 and 7.0 ) Emanuel #: 0.62 K/uL -- Normal range between ( 0.16 and 1.00 ) Eos #: 0.04 x10(3)/uL -- Normal range between ( 0.00 and 0.80 ) Emanuel %: 5.9 % -- Normal range between [...] was given the opportunity to ask questions. Patient/Tool Crib Lead Name: Patient/Tool Crib Lead Signature: Relationship to Patient: Clinician/Hospital Tool Crib Lead Signature: Date: documented in this encounter Plan of Treatment Not on file documented as of this encounter Visit Diagnoses Not on filedocumented in this encounter Care Teams Graduate Civil Engineer Relationship Specialty Start Date End Date Alfredo Lackey MD [address] [place] [address] PCP - General Adolescent Medicine 10/16/22 10/19/22 Alfredo Lackey MD [address] [place] [address] PCP - General Adolescent Medicine 10/20/22 documented as of this encounter
--- OUTSIDE RECORDS SUMMARY | 2025-05-08 14:09 | XMS_ITS | Encounter Summary ---
Author Organization [employer] ([place], [place], [place], [place]) Address [address] [place] [address] Care Team Providers Care Marine Cargo Surveyor Name Role Phone Alfredo Aguiar MD Primary Care Provider + [phone] Alfredo Aguiar MD Primary Care Provider + [phone] Encounter Details Date Type Department Care Team (Late st Contact Info) Description 08/18/2019 Transcribed Document [facility] [place] Medicine [facility] [place] [address] ProviderEryn MD [address] [place] [address] Social History Tobacco Use Types Packs/Day Years Used Date Smoking Tobacco: Never Assessed Sex and Gender Information Value Date Recorded Sex Assigned at Not on file Legal Sex Male 5:45 PM CDT Gender Identity Not on file Sexual Orientation Not on file documented as of this encounter Miscellaneous Notes * Cerner Conversion Note - Eryn ProviderMD - 08/18/2019 6:00 PM DIRECTOR OF CORPORATE RESPONSIBILITY Pain Assessment Entered On: 08/18/2019 21:08 EST [...] on filedocumented in this encounter Care Teams Marine Cargo Surveyor Relationship Specialty Start Date End Date Alfredo Aguiar MD [address] [place] [address] PCP - General Adolescent Medicine 10/16/22 10/19/22 Alfredo Aguiar MD [address] [place] [address] PCP - General Adolescent Medicine 10/20/22 documented as of this encounter
--- OUTSIDE RECORDS SUMMARY | 2025-05-08 14:09 | XMS_ITS | Encounter Summary ---
Author Organization [employer] ([place], [place], [place], [place]) Address [address] [place] [address] Care Team Providers Care Assistant Buyer Name Role Phone Alfredo Aguiar MD Primary Care Provider + [phone] Alfredo Aguiar MD Primary Care Provider + [phone] Encounter Details Date Type Department Care Team (Late st Contact Info) Description 08/20/2019 Transcribed Document [facility] [place] [facility] [place] [address] ProviderEryn MD [address] [place] [address] Social History Tobacco Use Types Packs/Day Years Used Date Smoking Tobacco: Never Assessed Sex and Gender Information Value Date Recorded Sex Assigned at Not on file Legal Sex Male 5:45 PM CDT Gender Identity Not on file Sexual Orientation Not on file documented as of this encounter Miscellaneous Notes * Cerner Conversion Note - Eryn ProviderMD - 08/20/2019 2:14 PM TRAFFIC REPRESENTATIVE Final Discharge Planning Entered On: 08/20/2019 14:14 EST Performed On: 08/20/2019 14:14 EST by RAMBO MURRAY, RN-Store Keeper Final Discharge Planning Discharge Arrangements : Patient Post-Acute Information Patient Name: LORA JAIN JR Gender: Male : [birth year] Age: 78 Years [place] Referral(s): Service: Organization: Business Address: Phone Number: Residential Facility [facility] [address] [facility] [address] [place], [address] Patient Offered Choice/Affiliations Explained : Yes Important [...] : SNF with Medicare Certification-03 RAMBO MURRAY, RN-Store Keeper - 08/20/2019 14:14 EST Final Narrative Note Final Narrative Note : Pt to discharge to [facility]. Family to transport. Discharge summary faxed. RAMBO MURRAY, RN-Store Keeper - 08/20/2019 14:14 EST Electronically signed by [facility] Conversion Shearer Operator Cerner at 11/18/2022 9:18 AM CDT documented in this encounter Plan of Treatment Not on file documented as of this encounter Visit Diagnoses Not on filedocumented in this encounter Care Teams Assistant Buyer Relationship Specialty Start Date End Date Alfredo Aguiar MD [address] [place] [address] PCP - General Adolescent Medicine 10/16/22 10/19/22 Alfredo Aguiar MD [address] [place] [address] PCP - General Adolescent Medicine 10/20/22 documented as of this encounter
--- OUTSIDE RECORDS SUMMARY | 2025-05-08 14:09 | XMS_ITS | Encounter Summary ---
Author Organization [employer] ([place], [place], [place], [place]) Address [address] [place] [address] Care Team Providers Care Guest Experience Captain Name Role Phone Alfredo Aguiar MD Primary Care Provider + [phone] Alfredo Aguiar MD Primary Care Provider + [phone] Encounter Details Date Type Department Care Team (Late st Contact Info) Description 05/23/2019 Transcribed Document [facility] [place] [address] ProviderEryn MD [address] [place] [address] Social History Tobacco Use Types Packs/Day Years Used Date Smoking Tobacco: Never Assessed Sex and Gender Information Value Date Recorded Sex Assigned at Not on file Legal Sex Male 5:45 PM CDT Gender Identity Not on file Sexual Orientation Not on file documented as of this encounter Miscellaneous Notes * Harjinderner Conversion Note - Eryn ProviderMD - 05/23/2019 2:00 AM CDT Threader Details Entered On: 05/23/2019 5:19 EDT Performed [...] on filedocumented in this encounter Care Teams Guest Experience Captain Relationship Specialty Start Date End Date Alfredo Aguiar MD [address] [place] [address] PCP - General Adolescent Medicine 10/16/22 10/19/22 Alfredo Aguiar MD [address] [place] [address] PCP - General Adolescent Medicine 10/20/22 documented as of this encounter
--- OUTSIDE RECORDS SUMMARY | 2025-05-08 14:09 | XMS_ITS | Encounter Summary ---
Author Organization [employer] ([place], [place], [place], [place]) Address [address] [place] [address] Care Team Providers Care Social Welfare Clerk Name Role Phone Alfredo Aguiar MD Primary Care Provider + [phone] Alfredo Aguiar MD Primary Care Provider + [phone] Encounter Details Date Type Department Care Team (Late st Contact Info) Description 08/18/2019 Transcribed Document [facility] [place] [facility] [place] [address] ProviderEryn MD [address] [place] [address] Social History Tobacco Use Types Packs/Day Years Used Date Smoking Tobacco: Never Assessed Sex and Gender Information Value Date Recorded Sex Assigned at Not on file Legal Sex Male 5:45 PM CDT Gender Identity Not on file Sexual Orientation Not on file documented as of this encounter Miscellaneous Notes * Cerner Conversion Note - Eryn ProviderMD - 08/18/2019 2:00 AM INTERNET WEBMASTER Appliance Fixer Details Entered On: 08/18/2019 4:12 EST Performed On: 08/18/2019 2:00 EST by Eric Guerrero RN-Resource Order Details Order Detail : N/A IV Order Detail : 1 Oxygen Order Detail : 1 Nurse Collect Order Detail : 0 Lift/Transfer : Moderate assist Central Line Order Detail : No Room Service : Needs Assistance Arterial Line : No Eric Guerrero RN-Resource - 08/18/2019 4:12 EST Electronically signed by [facility] Conversion Information Services Consultant Cerner at 11/18/2022 9:31 AM CDT documented in this encounter Plan of Treatment Not on file documented as of this encounter Visit Diagnoses Not on filedocumented in this encounter Care Teams Social Welfare Clerk Relationship Specialty Start Date End Date Alfredo Aguiar MD [address] [place] [address] PCP - General Adolescent Medicine 10/16/22 10/19/22 Alfredo Aguiar MD [address] [place] [address] PCP - General Adolescent Medicine 10/20/22 documented as of this encounter
--- OUTSIDE RECORDS SUMMARY | 2025-05-08 14:09 | XMS_ITS | Encounter Summary ---
Author Organization [employer] ([place], [place], [place], [place]) Address [address] [place] [address] Care Team Providers Care Medication Specialist Name Role Phone Alfredo Aguiar MD Primary Care Provider + [phone] Alfredo Aguiar MD Primary Care Provider + [phone] Encounter Details Date Type Department Care Team (Late st Contact Info) Description 08/19/2019 Transcribed Document [facility] [place] [facility] [place] [address] ProviderEryn MD [address] [place] [address] Social History Tobacco Use Types Packs/Day Years Used Date Smoking Tobacco: Never Assessed Sex and Gender Information Value Date Recorded Sex Assigned at Not on file Legal Sex Male 5:45 PM CDT Gender Identity Not on file Sexual Orientation Not on file documented as of this encounter Miscellaneous Notes * Cerner Conversion Note - Eryn ProviderMD - 08/19/2019 12:00 PM DESKTOP TECHNICIAN Pain Assessment Entered On: 08/19/2019 19:59 EST [...] on filedocumented in this encounter Care Teams Medication Specialist Relationship Specialty Start Date End Date Aflredo Aguiar MD [address] [place] [address] PCP - General Adolescent Medicine 10/16/22 10/19/22 Alfredo Aguiar MD [address] [place] [address] PCP - General Adolescent Medicine 10/20/22 documented as of this encounter
--- OUTSIDE RECORDS SUMMARY | 2025-05-08 14:10 | XMS_ITS | Encounter Summary ---
Author Organization [employer] ([place], [place], [place], [place]) Address [address] [place] [address] Care Team Providers Care Web Solutions Architect Name Role Phone Alfredo Aguiar MD Primary Care Provider + [phone] Alfredo Aguiar MD Primary Care Provider + [phone] Encounter Details Date Type Department Care Team (Late st Contact Info) Description 08/19/2019 Transcribed Document [facility] [place] [facility] [place] [address] ProviderEryn MD [address] [place] [address] Social History Tobacco Use Types Packs/Day Years Used Date Smoking Tobacco: Never Assessed Sex and Gender Information Value Date Recorded Sex Assigned at Not on file Legal Sex Male 5:45 PM CDT Gender Identity Not on file Sexual Orientation Not on file documented as of this encounter Miscellaneous Notes * Cerner Conversion Note - Eryn ProviderMD - 08/19/2019 1:40 PM COMPUTER METEOROLOGIST Treatment Intervention, PT Entered On: 08/19/2019 13:47 [...] : 08/17/2019 07:12 Assisted by, PT : airborne weapons technical manager/aide Personal Devices : Personal Devices No Devices Recorded Assistive Devices : Assistive Devices No Devices Recorded Precautions in Place : Fall prevention measures [facility]ARON W[facility] 08/19/2019 13:40 EST General Status Patient Received Status : Supine in bed Treatment Start Time : 08/19/2019 13:07 EST Patient Left Status : Supine in bed, All needs met and within reach RN/PCT Informed Comment : ELICEO Anthony ok'd to treat. Treatment End Time : 08/19/2019 13:19 EST Treatment Time : 12 Minute(s) [facility] 08/19/2019 13:40 EST Functional Mobility Mobility Grid Supine to Sit : Supervision/set-up (Comment: using leg classification case manager [[facility] 08/19/2019 13:40 EST] ) Sit to Stand : Rehab Minimal assistance (Comment: x2 [[facility]ON [facility]TON [facility] 08/19/2019 13:40 EST] ) Stand to Sit : Rehab Minimal assistance (Comment: x2 [SHARON WALTON [facility] 08/19/2019 13:40 EST] ) Sit to Supine : Supervision/set-up [facility] 08/19/2019 13:40 EST Bed Comment : patient [...] keeping his walker close to him SHARON WALTON [facility] - 08/19/2019 13:40 EST Cognitive Treatment, PT Orientation : Oriented x 4 ANTON SHARON [employer]S - 08/19/2019 13:40 EST Edu Topics Physical Therapy Education Grid Gait Training : Returns demonstration, Needs further teaching Role of Physical Therapy : Returns demonstration Transfer Training : Returns demonstration, Needs further teaching SHARON WALTON [facility] - 08/19/2019 13:40 EST Indication Assesessment, PT Physical Therapy Indicated : Yes SHARON WALTON [facility] - 08/19/2019 13:40 EST Plan of Care, PT PT Tx Plan/Goals Established w Patient : Yes SHARON WALTON [facility] - 08/19/2019 13:40 EST Mis Director Goals Mobility/Bed Mobility LTG PT Grid Goal [...] Goal Status : Progressing, continue SHARON WALTON [facility] - 08/19/2019 13:40 EST Treatment Note Subjective Comment : Patient agrees to treat Additional Objective Information : AAROM left knee was 0 to 78 Assessment : Patient would benefit from rehab placement to improve LLE strength and progress therapy as tolerated Plan for Treatment : Continue per POC. SHARON WALTON [employer] [facility] - 08/19/2019 13:40 EST Pain Assessment Pain Comment : patient states his knee is a little sore SHARON WALTON [facility] - 08/19/2019 13:40 EST Image 1 - Images currently included in the form version of this document have not been included in the text rendition version of the form. Anticipated Discharge Needs, OT/PT Anticipated Discharge to : Unit, rehabilitation STEFAN WALTONN, DIRECTOR SYSTEMS - 08/19/2019 13:40 EST Storla PT Charges DIRECTOR SYSTEMS PT Therap. Exercise 15 min-DIRECTOR SYSTEMS : 1 SHARON WALTON, DIRECTOR SYSTEMS - 08/19/2019 13:40 EST Electronically signed by [facility] Conversion Client Experience Specialist Cerner at 11/18/2022 9:41 AM CDT documented in this encounter Plan of Treatment Not on file documented as of this encounter Visit Diagnoses Not on filedocumented in this encounter Care Teams Web Solutions Architect Relationship Specialty Start Date End Date Alfredo Aguiar MD [address] [place] [address] PCP - General Adolescent Medicine 10/16/22 10/19/22 Alfredo Aguiar MD [address] [place] [address] PCP - General Adolescent Medicine 10/20/22 documented as of this encounter
--- OUTSIDE RECORDS SUMMARY | 2025-05-08 14:10 | XMS_ITS | Encounter Summary ---
Author Organization [employer] ([place], [place], [place], [place]) Address [address] [place] [address] Care Team Providers Care Automobile Detailer Name Role Phone Alfredo Aguiar MD Primary Care Provider + [phone] Alfredo Aguiar MD Primary Care Provider + [phone] Encounter Details Date Type Department Care Team (Late st Contact Info) Description 05/22/2019 Transcribed Document [facility] [place] [address] ProviderEryn MD [address] [place] [address] Social History Tobacco Use Types Packs/Day Years Used Date Smoking Tobacco: Never Assessed Sex and Gender Information Value Date Recorded Sex Assigned at Not on file Legal Sex Male 5:45 PM CDT Gender Identity Not on file Sexual Orientation Not on file documented as of this encounter Miscellaneous Notes * Cerner Conversion Note - Eryn ProviderMD - 05/22/2019 5:00 AM CDT Chart Check [...] on filedocumented in this encounter Care Teams Automobile Detailer Relationship Specialty Start Date End Date Alfredo Aguiar MD [address] [place] [address] PCP - General Adolescent Medicine 10/16/22 10/19/22 Alfredo Aguiar MD [address] [place] [address] PCP - General Adolescent Medicine 10/20/22 documented as of this encounter
--- OUTSIDE RECORDS SUMMARY | 2025-05-08 14:10 | XMS_ITS | Encounter Summary ---
Author Organization [employer] ([place], [place], [place], [place]) Address [address] [place] [address] Care Team Providers Care Tissue Rewinder Name Role Phone Alfredo Aguiar MD Primary Care Provider + [phone] Alfredo Aguiar MD Primary Care Provider + [phone] Encounter Details Date Type Department Care Team (Late st Contact Info) Description 08/19/2019 Transcribed Document [facility] [place] Family [place] [address] ProviderEryn MD [address] [place] [address] Social History Tobacco Use Types Packs/Day Years Used Date Smoking Tobacco: Never Assessed Sex and Gender Information Value Date Recorded Sex Assigned at Not on file Legal Sex Male 5:45 PM CDT Gender Identity Not on file Sexual Orientation Not on file documented as of this encounter Miscellaneous Notes * Cerner Conversion Note - Eryn ProviderMD - 08/19/2019 2:00 AM RELIGIOUS ACTIVITIES DIRECTOR Head Screen Worker Details Entered On: 08/19/2019 5:50 EST Performed [...] No Jess Reno - 08/19/2019 5:50 EST Electronically signed by [facility] Conversion Contract Analyst Cerner at 11/18/2022 9:14 AM CDT documented in this encounter Plan of Treatment Not on file documented as of this encounter Visit Diagnoses Not on filedocumented in this encounter Care Teams Tissue Rewinder Relationship Specialty Start Date End Date Alfredo Aguiar MD [address] [place] [address] PCP - General Adolescent Medicine 10/16/22 10/19/22 Alfredo Aguiar MD [address] [place] [address] PCP - General Adolescent Medicine 10/20/22 documented as of this encounter
--- OUTSIDE RECORDS SUMMARY | 2025-05-08 14:10 | XMS_ITS | Encounter Summary ---
Author Organization [employer] ([place], [place], [place], [place]) Address [address] [place] [address] Care Team Providers Care Radar Repairer Name Role Phone Alfredo Aguiar MD Primary Care Provider + [phone] Alfredo Aguiar MD Primary Care Provider + [phone] Encounter Details Date Type Department Care Team (Late st Contact Info) Description 05/22/2019 Transcribed Document [facility] [place] Family Medicine [address] [place] [address] ProviderEryn MD [address] [place] [address] Social History Tobacco Use Types Packs/Day Years [...] Performed On: 05/22/2019 13:48 EDT by Marcelina Bojorquez RN Intervention Information: acetaminophen Performed by Marcelina Bojorquez RN on 05/22/2019 12:48:00 EDT acetaminophen,1000mg Oral Pain Assessment Pain Assessment : Follow-up assessment Pain Scale Goal : 3 Pain Scale Used : 0-10 Scale Marcelnia Bojorquez RN - 05/22/2019 18:00 EDT Pain [...] on filedocumented in this encounter Care Teams Radar Repairer Relationship Specialty Start Date End Date Alfredo Aguiar MD [address] [place] [address] PCP - General Adolescent Medicine 10/16/22 10/19/22 Alfredo Aguiar MD [address] [place] [address] PCP - General Adolescent Medicine 10/20/22 documented as of this encounter
--- OUTSIDE RECORDS SUMMARY | 2025-05-08 14:10 | XMS_ITS | Encounter Summary ---
Author Organization [employer] ([place], [place], [place], [place]) Address [address] [place] [address] Care Team Providers Care Tool Analyst Name Role Phone Alfredo Aguiar MD Primary Care Provider + [phone] Alfredo Aguiar MD Primary Care Provider + [phone] Encounter Details Date Type Department Care Team (Late st Contact Info) Description 05/22/2019 Transcribed Document [facility] [place] Family Medicine [facility] [address] ProviderEryn MD [address] [place] [address] Social History Tobacco Use Types Packs/Day Years [...] EDT Performed On: 05/21/2019 23:30 EDT by Maegan Tracey RN-Resource Intervention Information: acetaminophen Performed by Maegan Tracey RN-Resource on 05/21/2019 22:30:00 EDT acetaminophen,1000mg Oral Pain Assessment Pain Assessment : Follow-up assessment Pain Scale Goal : 3 Pain Scl Goal Comment : pt sleeping Maegan Tracey RN-Resource - 05/22/2019 4:48 EDT Electronically signed by [facility] Conversion Technical Service Specialist Cerner at 11/18/2022 9:38 AM CDT documented in this encounter Plan of Treatment Not on file documented as of this encounter Visit Diagnoses Not on filedocumented in this encounter Care Teams Tool Analyst Relationship Specialty Start Date End Date Alfredo Aguiar MD [address] [place] [address] PCP - General Adolescent Medicine 10/16/22 10/19/22 Alfredo Aguiar MD [address] [place] [address] PCP - General Adolescent Medicine 10/20/22 documented as of this encounter
--- OUTSIDE RECORDS SUMMARY | 2025-05-08 14:10 | XMS_ITS | Encounter Summary ---
Author Organization [employer] ([place], [place], [place], [place]) Address [address] [place] [address] Care Team Providers Care Fast Food Cashier Name Role Phone Alfredo Agiuar MD Primary Care Provider + [phone] Alfredo Aguiar MD Primary Care Provider + [phone] Encounter Details Date Type Department Care Team (Late st Contact Info) Description 05/22/2019 Transcribed Document [facility] [place] [facility] [place] [address] ProviderEryn MD [address] [place] [address] Social History Tobacco Use Types Packs/Day Years Used Date Smoking Tobacco: Never Assessed Sex and Gender Information Value Date Recorded Sex Assigned at Not on file Legal Sex Male 5:45 PM CDT Gender Identity Not on file Sexual Orientation Not on file documented as of this encounter Miscellaneous Notes * Cerner Conversion Note - Eryn ProviderMD - 05/22/2019 12:39 PM CDT Treatment Intervention, [...] Tx Plan/Goals Established w Patient : Yes PRIYANKA MADIE NAVA - 05/23/2019 13:16 EDT Line Installer Trolley Goals, OT Dressing, Lower Body LTG Grid [...] Client was supine in bed. Used leg operational risk consultant. MIN A to EOB. Client stood with [...] Pain Score Pre-Intervention : 0 BRANDY MATHEW RAMACHANDRAN - 05/23/2019 13:16 EDT Image 1 - [...] 05/23/2019 13:16 EDT Electronically signed by [facility] Conversion Candy Waffle Assembler Cerner at 11/18/2022 9:18 AM CDT documented in this encounter Plan of Treatment Not on file documented as of this encounter Visit Diagnoses Not on filedocumented in this encounter Care Teams Fast Food Cashier Relationship Specialty Start Date End Date Alfredo Aguiar MD [address] [place] [address] PCP - General Adolescent Medicine 10/16/22 10/19/22 Alfredo Aguiar MD [address] [place] [address] PCP - General Adolescent Medicine 10/20/22 documented as of this encounter
--- OUTSIDE RECORDS SUMMARY | 2025-05-08 14:10 | XMS_ITS | Encounter Summary ---
Author Organization [employer] ([place], [place], [place], [place]) Address [address] [place] [address] Care Team Providers Care Christmas Bell Ringer Name Role Phone Alfredo Aguiar MD Primary Care Provider + [phone] Alfredo Aguiar MD Primary Care Provider + [phone] Encounter Details Date Type Department Care Team (Late st Contact Info) Description 05/22/2019 Transcribed Document [facility] [place] [facility] [place] [address] ProviderEryn MD [address] [place] [address] Social History Tobacco Use Types Packs/Day Years Used Date Smoking Tobacco: Never Assessed Sex and Gender Information Value Date Recorded Sex Assigned at Not on file Legal Sex Male 5:45 PM CDT Gender Identity Not on file Sexual Orientation Not on file documented as of this encounter Miscellaneous Notes * Cerner Conversion Note - Eryn ProviderMD - 05/22/2019 2:00 AM CDT Flight Attendant/Inflight Supervisor Details Entered On: 05/22/2019 4:49 EDT Performed [...] on filedocumented in this encounter Care Teams Christmas Bell Ringer Relationship Specialty Start Date End Date Alfredo Aguiar MD [address] [place] [address] PCP - General Adolescent Medicine 10/16/22 10/19/22 Alfredo Aguiar MD [address] [place] [address] PCP - General Adolescent Medicine 10/20/22 documented as of this encounter
--- OUTSIDE RECORDS SUMMARY | 2025-05-08 14:10 | XMS_ITS | Encounter Summary ---
Author Organization [employer] ([place], [place], [place], [place]) Address [address] [place] [address] Care Team Providers Care Photogrammetric Stereo Compiler Name Role Phone Alfredo Aguiar MD Primary Care Provider + [phone] Alfredo Aguiar MD Primary Care Provider + [phone] Encounter Details Date Type Department Care Team (Late st Contact Info) Description 08/19/2019 Transcribed Document [facility] [place] [facility] [place] [address] ProviderEryn MD [address] [place] [address] Social History Tobacco Use Types Packs/Day Years Used Date Smoking Tobacco: Never Assessed Sex and Gender Information Value Date Recorded Sex Assigned at Not on file Legal Sex Male 5:45 PM CDT Gender Identity Not on file Sexual Orientation Not on file documented as of this encounter Miscellaneous Notes * Cerner Conversion Note - Eryn Arcos MD - 08/19/2019 7:35 AM PUNCHING MACHINE OPERATOR Patient: LORA JAIN JR Age: 78 Years Sex: Male : 1940 Assessment/Plan Continue PT. Discontinue Hemovac drain and reinforce incisional VAC. Weightbearing as tolerated but minimize ambulation. Okay to do range of motion. Elevate foot above knee in the above heart to the extent possible. Monitor tibialis anterior function throughout the day. Plan to discharge [facility] tomorrow if stable VTE Prophylaxis - Medical Sequential Compression Device Start: 08/17/19 18:35:00 EST, Bilateral, Length: Knee High, Continuous Order (LION DAVIS) Subjective Postop day 1 left knee replacement [...] # 0.33 x10(3)/uL (Low) 08/19/2019 03:35 EST [place] % 11.9 % (High) 08/19/2019 03:35 EST [place] # 0.94 K/uL 08/19/2019 03:35 EST Eos % 2.5 % 08/19/2019 03:35 EST Eos # 0.20 x10(3)/uL 08/19/2019 03:35 EST Baso % 0.4 % 08/19/2019 03:35 EST Baso # 0.03 x10(3)/uL 08/19/2019 03:35 EST Slide Review No 08/19/2019 03:35 EST IG# 0.05 x10(3)/uL 08/19/2019 03:35 EST IG% 0.60 % 08/19/2019 03:35 EST Electronically signed by [facility] Conversion Memorandum Statement Clerk Cerner at 11/18/2022 9:20 AM CDT documented in this encounter Plan of Treatment Not on file documented as of this encounter Visit Diagnoses Not on filedocumented in this encounter Care Teams Photogrammetric Stereo Compiler Relationship Specialty Start Date End Date Alfredo Aguiar MD [address] [place] [address] PCP - General Adolescent Medicine 10/16/22 10/19/22 lAfredo Aguiar MD [address] [place] [address] PCP - General Adolescent Medicine 10/20/22 documented as of this encounter
--- OUTSIDE RECORDS SUMMARY | 2025-05-08 14:10 | XMS_ITS | Encounter Summary ---
Author Organization [employer] ([place], [place], [place], [place]) Address [address] [place] [address] Care Team Providers Care Commercial Designer Name Role Phone Alfredo Aguiar MD Primary Care Provider + [phone] Alfredo Aguiar MD Primary Care Provider + [phone] Encounter Details Date Type Department Care Team (Late st Contact Info) Description 08/19/2019 Transcribed Document [facility] [place] Family [place] [address] ProviderEryn MD [address] [place] [address] Social History Tobacco Use Types Packs/Day Years Used Date Smoking Tobacco: Never Assessed Sex and Gender Information Value Date Recorded Sex Assigned at Not on file Legal Sex Male 5:45 PM CDT Gender Identity Not on file Sexual Orientation Not on file documented as of this encounter Miscellaneous Notes * Cerner Conversion Note - Eryn ProviderMD - 08/19/2019 1:57 PM INFECTIOUS DISEASE PHYSICIAN On Going Discharge Planning Entered On: 08/19/2019 13:59 EST Performed On: 08/19/2019 13:57 EST by JUANY HERNANDEZ RN-President Sales And MarketingPharmacy Messenger Progress Note Discharge Arrangements : Patient Post-Acute Information Patient Name: LORA JAIN JR Gender: Male : [birth year] Age: 78 Years [place] Referral(s): Service: Organization: Business Address: Phone Number: Senior Living Facility [facility] [address] [place], [address] Discharge Options Discussed with Patient : Home Health, Short term rehabilitation Barriers to Discharge Identified : 3 Day Qualifying Stay for SNF Barriers to Discharge Unresolved : 3 Day Qualifying Stay for SNF Designation of Choice Signed : Yes Patient Offered Choice/Affiliations Explained : Yes List/Info Provided Pt/Fam/Support Person : Home health, [facility] facilities Were Referrals Sent to Post Acute Providers : Yes Is the Patient Meeting Medical Necessity : Yes JUANY HERNANDEZ, RN-President Sales And Marketing - 08/19/2019 13:57 EST Narrative Progress Note Narrative Progress Note : Hemovac dc'd today with WOCN at bedside to ensure wound vac not disrupted. Pt will dc to [facility] tomorrow 08/20 via daughter. No other CM needs identified. JUANY HERNANDEZ RN-President Sales And Marketing - 08/19/2019 13:57 EST documented in this encounter Plan of Treatment Not on file documented as of this encounter Visit Diagnoses Not on filedocumented in this encounter Care Teams Commercial Designer Relationship Specialty Start Date End Date Alfredo Aguiar MD [address] [place] [address] PCP - General Adolescent Medicine 10/16/22 10/19/22 Alfredo Aguiar MD [address] [place] [address] PCP - General Adolescent Medicine 10/20/22 documented as of this encounter
--- OUTSIDE RECORDS SUMMARY | 2025-05-08 14:10 | XMS_ITS | Encounter Summary ---
Author Organization [employer] ([place], [place], [place], [place]) Address [address] [place] [address] Care Team Providers Care Fruit Harvester Name Role Phone Alfredo Aguiar MD Primary Care Provider + [phone] Alfredo Aguiar MD Primary Care Provider + [phone] Encounter Details Date Type Department Care Team (Late st Contact Info) Description 05/22/2019 Transcribed Document [facility] [place] Family [place] [facility] [place] [place] [address] ProviderEryn MD [address] [place] [address] Social History Tobacco Use Types Packs/Day Years [...] Yes Chart Reviewed With : Marcelina Bojorquez, RN Marcelina Bojorquez, RN - 05/22/2019 18:01 EDT documented in this encounter Plan of Treatment Not on file documented as of this encounter Visit Diagnoses Not on filedocumented in this encounter Care Teams Fruit Harvester Relationship Specialty Start Date End Date Alfredo Aguiar MD [address] [place] [address] PCP - General Adolescent Medicine 10/16/22 10/19/22 Alfredo Aguiar MD [address] [place] [address] PCP - General Adolescent Medicine 10/20/22 documented as of this encounter
--- OUTSIDE RECORDS SUMMARY | 2025-05-08 14:10 | XMS_ITS | Encounter Summary ---
Author Organization [employer] ([place], [place], [place], [place]) Address [address] [place] [address] Care Team Providers Care Front Window Cashier Name Role Phone Alfredo Aguiar MD Primary Care Provider + [phone] Alfredo Aguiar MD Primary Care Provider + [phone] Encounter Details Date Type Department Care Team (Late st Contact Info) Description 08/19/2019 Transcribed Document [facility] [place] [facility] [place] [address] ProviderEryn MD [address] [place] [address] Social History Tobacco Use Types Packs/Day Years Used Date Smoking Tobacco: Never Assessed Sex and Gender Information Value Date Recorded Sex Assigned at Not on file Legal Sex Male 5:45 PM CDT Gender Identity Not on file Sexual Orientation Not on file documented as of this encounter Miscellaneous Notes * Cerner Conversion Note - Eryn ProviderMD - 08/19/2019 6:00 PM CENTRAL OFFICE TROUBLE SHOOTER Pain Assessment Entered On: 08/19/2019 19:59 EST [...] form. Electronically signed by Radha Paris Conversion Environmental Communications Specialist Cerner at 11/18/2022 9:13 AM CDT documented in this encounter Plan of Treatment Not on file documented as of this encounter Visit Diagnoses Not on filedocumented in this encounter Care Teams Front Window Cashier Relationship Specialty Start Date End Date Alfredo Aguiar MD [address] [place] [address] PCP - General Adolescent Medicine 10/16/22 10/19/22 Alfredo Aguiar MD [address] [place] [address] PCP - General Adolescent Medicine 10/20/22 documented as of this encounter
--- OUTSIDE RECORDS SUMMARY | 2025-05-08 14:10 | XMS_ITS | Encounter Summary ---
Author Organization [employer] ([place], [place], [place], [place]) Address [address] [place] [address] Care Team Providers Care Tenter Feeder Name Role Phone Alfredo Aguiar MD Primary Care Provider + [phone] Alfredo Aguiar MD Primary Care Provider + [phone] Encounter Details Date Type Department Care Team (Late st Contact Info) Description 08/19/2019 Transcribed Document [facility] [place] [facility] [place] [address] ProviderEryn MD [address] [place] [address] Social History Tobacco Use Types Packs/Day Years Used Date Smoking Tobacco: Never Assessed Sex and Gender Information Value Date Recorded Sex Assigned at Not on file Legal Sex Male 5:45 PM CDT Gender Identity Not on file Sexual Orientation Not on file documented as of this encounter Miscellaneous Notes * Cerner Conversion Note - Eryn ProviderMD - 08/19/2019 1:59 PM BACKREST ASSEMBLER Final Discharge Planning Entered On: 08/19/2019 13:59 EST Performed On: 08/19/2019 13:59 EST by JUANY HERNANDEZ RN-Cable Installation Manager Final Discharge Planning Discharge Arrangements : Patient Post-Acute Information Patient Name: LORA JAIN JR Gender: Male : [birth year] Age: 78 Years [place] Referral(s): Service: Organization: Business Address: Phone Number: [facility]pc Facility [facility] [address] [facility] [address] [place], [address] Patient Offered Choice/Affiliations Explained : Yes Designation of Choice Signed : Yes Important Medicare Message Reviewed With : Patient Important Medicare Message Reviewed D/T : 08/19/2019 10:00 EST Transportation Needs : JUANY Nice, RN-Cable Installation Manager - 08/19/2019 13:59 EST Electronically signed by [facility] Conversion Radio Talk Show Host Cerner at 11/18/2022 9:41 AM CDT documented in this encounter Plan of Treatment Not on file documented as of this encounter Visit Diagnoses Not on filedocumented in this encounter Care Teams Tenter Feeder Relationship Specialty Start Date End Date Alfredo Aguiar MD [address] [place] [address] PCP - General Adolescent Medicine 10/16/22 10/19/22 Alfredo Aguiar MD [address] [place] [address] PCP - General Adolescent Medicine 10/20/22 documented as of this encounter
--- OUTSIDE RECORDS SUMMARY | 2025-05-08 14:10 | XMS_ITS | Encounter Summary ---
Author Organization [employer] ([place], [place], [place], [place]) Address [address] [place] [address] Care Team Providers Care Chief Information Officer Name Role Phone Alfredo Aguiar MD Primary Care Provider + [phone] Alfredo Aguiar MD Primary Care Provider + [phone] Encounter Details Date Type Department Care Team (Late st Contact Info) Description 05/22/2019 Transcribed Document [facility] [place] Family Medicine [address] [place] [address] ProviderEryn MD [address] [place] [address] Social History Tobacco Use Types Packs/Day Years [...] will continue to keep md informed. Marcelina Bojorquez RN - 05/22/2019 16:20 EDT Electronically signed by [facility] Conversion Cable Tower Operator Cerner at 11/18/2022 9:20 AM CDT documented in this encounter Plan of Treatment Not on file documented as of this encounter Visit Diagnoses Not on filedocumented in this encounter Care Teams Chief Information Officer Relationship Specialty Start Date End Date Alfredo Aguiar MD [address] [place] [address] PCP - General Adolescent Medicine 10/16/22 10/19/22 Alfredo Aguiar MD [address] [place] [address] PCP - General Adolescent Medicine 10/20/22 documented as of this encounter
[2025-05-08 15:06] LABS: Blood Urea Nitrogen 26 mg/dl (9-20); Creatinine,Serum 2.00 mg/dl (0.66-1.25); Estimated Glomerular Filt Rate 32 ml/min (>60); GFR (African American) 39 ML/MIN (>60)
[2025-05-09 18:01] LABS: PSA, Free <0.02 ng/mL
== END 2025-05-08 23:59 | disposition home or self-care (01) ==
LOC: LAB 14:06
PROVIDERS: PCP Internal Medicine Adolescent Medicine; Visit Provider Urology
DX: C61 Malignant neoplasm of prostate (principal); N18.9 Chronic kidney disease, unspecified; N45.1 Epididymitis
CPT/HCPCS: 36415; 82565; 84153; 84154; 84520

== ENCOUNTER 2025-05-17 09:56 | Outpatient (CLI) | payer MEDICARE, OTHER, SELFPAY ==
--- OUTSIDE RECORDS SUMMARY | 2025-04-24 08:45 | XMS_ITS | Encounter Summary ---
Author Organization [facility] Address [address] [place] [address] Care Team Providers Care Budget Analyst Name Role Phone Alfredo Aguiar MD Primary Care Provider + [phone] Reason for Visit * Reason Comments low vision * Consultation (Routine) - Closed Specialty Diagnoses / Procedures Referred By Amanda estevez Referred To Contact Ophthalmology Diagnoses Low vision Ashley Saldana MD [address] [place] [address] Phone: tel: fax: [facility] [address] [place] [address] Phone: tel: fax: Referral ID Status Reason Start Date Expiration Date V isits Requested Visits Authorized [id number] Closed Specialty Services Required 10/28/2024 04/29/2026 1 1 Encounter Details Date Type Department Care Team (Late st Contact Info) Description 04/24/2025 8:45 AM EDT Office Visit [facility] [address] [place] [address] Rosa Houston S, OD [address] [place] [address] Type 2 diabetes mellitus with hyperglycemia, with long-term current use of insulin ([facility]/HCC) (Primary Dx); Myopia of both eyes; [...] purchasing them, please reach out to the [facility] at [facility] at [phone]. You may order over the phone and the device will be shipped directly to you from the plant accountant. All devices we demonstrate are produced by [employer] unless otherwise noted. [facility] [place] of the Blind, Inc. The [facility] of the Blind (B) is the only nonprofit exclusively serving the needs of adults who are blind or visually impaired in [facility]. [facility] services are free of charge to clients and available to any clients affected by vision loss, including family, friends and professionals working with people with low to no vision. Our primary service area includes [place] and surrounding [facility], including [facility] and [place], however, due to a lack of available services in other [facility], we do provide information and services to persons in other [facility], upon request and as we have resources available. Our mission: To increase independence, security and quality of life for [facility] affected by vision loss through peer support, [...] are available to any person residing in [place], regardless of socio-economic status, race, ethnicity, gender, sexual orientation, age, religious, physical abilityor language. [facility] also publishes the BCB Bulletin, a bi-monthly newsletter offered in email, large print, and audio versions. Our mailing list is a great way to stay informed of the various activities of [facility], pending legislation and/or public policy affecting the blind and visually impaired as well as other items of interest and activities within the community. CONTACT US Mailing Address: [facility] of the Blind [address] [place] [address] General Email: [email or web address] Division The mission of the [place] Office of Vocational Rehabilitation / Blind Services Division is to provide opportunities for employment and independence to individuals with visual disabilities. We serveCommonwealth Regional Specialty Hospitalians who are visually impaired or blind and assist individuals in obtaining and maintaining e mployment, economic self-sufficiency and independence. Our goal is to provide myriad resources and high quality services that are geared to enhance the lives of [facility] with visual disabilities. Our programs and services provide individuals with visual disabilities the tools they need to become more independent in their homes, schools, workplaces and communities. These programs include: [facility] (training in low vision and [...] Services Division provides statewide services to all [address] [place] [address]. Our administrative operations are located in our central office in [place]. There are 10 field offices located throughout [place] in [facility], [place], [place], [place], [place], [facility] and [place]. Need more help? Contact [facility] Office of Vocational Rehabilitation Central Office [address] 4th [place] [address] [phone] (V/TTY) * Progress Notes - Rosa Houston, [...] (one) time each day. ergocalciferol 1.25 MG (54464 UT) capsule Take 1 capsule (50,000 Units) by mouth 1 (one) time per week. fluticasone (Flonase) 50 MCG/ACT nasal spray Administer 1 spray into each nostril daily. Shake gently. Before first use, prime pump. After use, clean tip and replace cap. HYDROcodone-acetaminophen ([place]) 5-325 MG tablet TAKE ONE TABLET BY [...] day. Spiriva Respimat 2.5 MCG/ACT inhaler Tiotropium [place] Monohydrate (SPIRIVA RESPIMAT IN) 2 puffs every [...] OTC Readers Manifest Refraction (Auto) Sphere Cylinder Barnhart Dist VA Add Right -1.75 +0.25 030 Left -0.50 Manifest Refraction #2 Sphere Cylinder Barnhart Dist VA Add Right -0.50 Sphere 20/25 +2.50 Left -0.50 Sphere 20/25+2 +2.50 Dist VA Both: 20/20- Final Rx Sphere Cylinder Dist VA Right +2.00 Sphere 20/25 Left +2.00 Sphere 20/25+2 Type: SVL Reading Expiration Date: 04/24/2026 Comments: Anti-reflective, Anti-scratch Assessment/Plan Assessment & Plan Type 2 diabetes mellitus with hyperglycemia, with long-term current use of insulin ([facility]) Myopia of both eyes Presbyopia [...] OTC at this time. Gave information on [facility] for additional assistive technology resources as well as peer support groups for patients and families living with vision impairment. Discussed resources provided by [facility] for the [facility], including home evaluations, independent [...] medications andtests, communicating with other health child caregiver private home, coordinating follow up care, and documenting clinical [...] Description 05/31/2025 9:20 AM EDT [facility] [address] [place] [address] Neena Fields, CERTIFIED NURSE AIDE [address] [facility] [address] [place] [address] documented as of this encounter Visit Diagnoses [...] documented as of this encounter Care Teams Budget Analyst Relationship Specialty Start Date End Date Alfredo Aguiar MD [address] [place] [address] PCP - General 12/14/20 documented as of this encounter
--- NOTE | 2025-05-17 10:00 | US_ITS ---
FINAL REPORT TECHNIQUE: Sonographic images of the testicles and scrotum were obtained in the longitudinal and transverse planes. CLINICAL HISTORY: epididymitis -- malignant neoplasm FINDINGS: The right testicle measures 4.1 x 2.6 x 3.6 centimeters. There is no intratesticular mass. The epididymis is within normal limits. Small hydrocele is present. The left testicle measures 4.8 x 2.2 x 3.7 centimeters. There is no intratesticular mass. The epididymis is enlarged and slightly heterogeneous with several cysts as well as punctate echogenic foci which may be calcifications. The body of the epididymis is enlarged. There is a small hydrocele.. No extratesticular mass is identified. Color imaging reveals no evidence of testicular torsion. IMPRESSION: No evidence of intratesticular mass or testicular torsion. Heterogeneous enlarged left epididymis with several epididymal cysts and probable calcifications. No discrete epididymal mass identified. This does not have the appearance of epididymitis. Etiology is unclear. Consider follow-up exam. Reviewed, Interpreted and Dictated by Kelle Rucker MD Transcribed by Nadia Hensley Authenticated and . [facility]
--- OUTSIDE RECORDS SUMMARY | 2025-05-17 10:04 | XMS_ITS | Encounter Summary ---
Author Organization [employer] ([place], [place], [place], [place]) Address [address] [place] [address] Care Team Providers Care Emergency Generator Mechanic Name Role Phone Alfredo Aguiar MD Primary Care Provider + [phone] Alfredo Aguiar MD Primary Care Provider + [phone] Encounter Details Date Type Department Care Team (Late st Contact Info) Description 05/20/2019 Transcribed Document [facility] [place] [facility] [place] [address] ProviderEryn MD [address] [place] [address] Social History Tobacco Use Types Packs/Day Years [...] form. Electronically signed by Radha Paris Conversion Sweatband Cutting Machine Operator Nicolas at 11/18/2022 9:38 AM CDT documented in this encounter Plan of Treatment Not on file documented as of this encounter Visit Diagnoses Not on filedocumented in this encounter Care Teams Emergency Generator Mechanic Relationship Specialty Start Date End Date Alfredo Aguiar MD [address] [place] [address] PCP - General Adolescent Medicine 10/16/22 10/19/22 Alfredo Aguiar MD [address] [place] [address] PCP - General Adolescent Medicine 10/20/22 documented as of this encounter
--- OUTSIDE RECORDS SUMMARY | 2025-05-17 10:04 | XMS_ITS | Encounter Summary ---
Author Organization [employer] ([place], [place], [place], [place]) Address [address] [place] [address] Care Team Providers Care Sorter Operator Name Role Phone Alfredo Aguiar MD Primary Care Provider + [phone] Alfredo Aguiar MD Primary Care Provider + [phone] Encounter Details Date Type Department Care Team (Late st Contact Info) Description 05/20/2019 Transcribed Document [facility] [place] Family Medicine [address] [place] [address] ProviderEryn MD [address] [place] [address] Social History Tobacco Use Types Packs/Day Years Used Date Smoking Tobacco: Never Assessed Sex and Gender Information Value Date Recorded Sex Assigned at Not on file Legal Sex Male 5:45 PM CDT Gender Identity Not on file Sexual Orientation Not on file documented as of this encounter Miscellaneous Notes * Cerner Conversion Note - Eryn Arcos MD - 05/20/2019 2:15 PM CDT [facility] Main OR IntraOp Summary Primary Physician: LION DAVIS MD-ORT Finalized Date/Time: 05/22/19 16:41:27 Pt. Name: LORA JAIN JR/Sex: 1940 Male Med Rec #: [id number] Physician: LION DAVIS MD-ORT Financial #: [id number] Pt. Type: I Room/Bed: [facility]/ Admit/Disch: 05/20/19 06:54:00 - Institution: [facility] IntraOp Case Attendance Entry 1 Entry 2 Entry 3 Case Attendee LION DAVIS TAYLOR, MELISSA A, RENETTA MAYS RN -ORT Role Performed Surgeon/Proceduralist, Software Test Technician, First Software Test Technician, Second First Time In 05/20/19 13:44:00 05/20/19 [...] HOFFMANN, SUZIE Oakes APRN, [place], DALE ALAN, PRESS TECHNICIAN-ANS MD-ANS Role Performed Scrub, First PRESS TECHNICIAN/Nurse Technology Project Manager Anesthesiologist of Record Time In 05/20/19 13:44:00 05/20/19 13:44:00 05/20/19 13:44:00 Time Out 05/20/19 15:43:00 05/20/19 15:28:00 05/20/19 15:14:00 Procedure Knee Total Joint Knee Total Joint Knee Total Joint Revision(Left) Revision(Left) Revision(Left) Other Attendee Superficial Wound Closed By: Last Modified By: PRSETON ALANIS RN TAYLOR, MELISSA A, RN TAYLOR, MELISSA A, RN 05/20/19 16:51:00 05/20/19 16:51:41 05/20/19 16:51:00 Entry 7 Entry 8 Entry 9 Case Attendee OTHER, ATTENDEE OTHER, ATTENDEE ELEUTERIO COLUNGA CSA Role Performed Vendor Vendor Aircraft Engine Assembler, First Time In 05/20/19 13:44:00 05/20/19 13:44:00 [...] Dennis [employer] Pref Card Builder Role Performed PRESS TECHNICIAN/Nurse Technology Project Manager Anesthesiologist of Scrub, First Record Time In [...] 16:51:00 Entry 13 Case Attendee YEIMI PARRA PRESS TECHNICIAN Role Performed PRESS TECHNICIAN/Nurse Technology Project Manager Time In 05/20/19 15:28:00 Time Out 05/20/19 16:54:00 Procedure Knee Total Joint Revision(Left) Other Attendee RELIEF Superficial Wound Closed By: Last Modified By: PRESTON ALANIS RN 05/20/19 16:51:00 [facility] IntraOp Case Attendance Audit 05/20/19 16:51:41 Media Relations Associate: CHANTELL Modifier: CHANTELL 13 <+> Role Performed 13 <*> Procedure Knee Total Joint Revision(Left) 05/20/19 16:51:00 Media Relations Associate: CHANTELL Modifier: CHANTELL 1 <+> Time Out [...] Procedure Knee Total Joint Revision(Left) 05/20/19 15:50:35 Media Relations Associate: ANNABELLEME Modifier: TAYLORME 1 <*> Procedure Knee [...] Procedure <+> 13 Other Attendee 05/20/19 15:42:18 Media Relations Associate: ANNABELLEME Modifier: TAYLORME <+> 12 Case Attendee <+> 12 Role Performed <+> 12 Procedure <+> 12 Other Attendee 05/20/19 15:29:20 Media Relations Associate: ANNABELLEME Modifier: TAYLORME 5 <+> Time Out 5 <*> Procedure Knee Total Joint Revision(Left) 6 <+> Time Out 6 <*> Procedure Knee Total Joint Revision(Left) <+> 11 Case Attendee <+> 11 Role Performed <+> 11 Time In <+> 11 Procedure 05/20/19 14:30:32 Media Relations Associate: ANNABELLEME Modifier: TAYLORME 3 <+> Time Out 3 <*> Procedure Knee Total Joint Revision(Left) 05/20/19 14:27:32 Media Relations Associate: CHANTELL Modifier: CHANTELL 1 <*> Case Attendee LION DAVIS MD-ORT 1 <*> Role Performed Surgeon/Proceduralist, First 1 <*> Time In 05/20/19 13:44:00 1 <*> Procedure Knee Total Joint Revision(Left) 2 <*> Case Attendee PRESTON ALANIS, RN 2 <*> Role Performed Software Test Technician, First 2 <*> Time In 05/20/19 13:44:00 2 <*> Procedure Knee Total Joint Revision(Left) 3 <*> Case Attendee RENETTA JOHN, RN 3 <*> Role Performed Software Test Technician, Second 3 <*> Time In 05/20/19 13:44:00 [...] 6 <*> Case Attendee SUZIE DAY APRN, PRESS TECHNICIAN-ANS 6 <*> Role Performed PRESS TECHNICIAN/Nurse Technology Project Manager 6 <*> Time In 05/20/19 13:44:00 6 [...] ELEUTERIO COLUNGA, CSA 10 <*> Role Performed Aircraft Engine Assembler, First 10 <*> Time In 05/20/19 13:44:00 10 <+> Time Out 10 <*> Procedure Knee Total Joint Revision(Left) 10 <+> Other Attendee 05/20/19 14:27:04 Media Relations Associate: CHANTELL Modifier: CHANTELL 1 <+> Time In 1 [...] Procedure <+> 11 Other Attendee 05/20/19 14:01:30 Media Relations Associate: CHANTELL Modifier: ANNABELLEME <+> 10 Case Attendee <+> 10 Role Performed <+> 10 Procedure 05/20/19 14:00:45 Media Relations Associate: CHANTELL Modifier: ANNABELLEME <+> 1 Procedure 2 <*> Procedure Knee Total Joint Revision(Left) 3 <*> Procedure Knee Total Joint Revision(Left) 4 <*> Procedure Knee Total Joint Revision(Left) 5 <*> Procedure Knee Total Joint Revision(Left) 6 <*> Procedure Knee Total Joint Revision(Left) 7 <*> Procedure Knee Total Joint Revision(Left) 8 <*> Procedure Knee Total Joint Revision(Left) 9 <*> Procedure Knee Total Joint Revision(Left) [facility] IntraOp Case Times Entry 1 Patient In Room Time 05/20/19 13:44:00 Out Room Time 05/20/19 16:54:00 Anesthesia Start Time 05/20/19 13:44:00 Stop Time 05/20/19 16:54:00 Surgery / Procedure Times Start Time 05/20/19 14:15:00 Stop Time 05/20/19 16:50:00 Last Modified By: PRESTON ALANIS RN 05/20/19 16:50:56 [facility] IntraOp Case Times Audit 05/20/19 16:50:56 Media Relations Associate: CHANTELL Modifier: ANNABELLEME <+> 1 Out Room Time <+> 1 Stop Time <+> 1 Stop Time 05/20/19 14:26:07 Media Relations Associate: CHANTELL Modifier: CHANTELL <+> 1 In Room Time <+> 1 Start Time [facility] IntraOp Cautery Entry 1 ESU Identification Cautery Type Monopolar ESU ID Number [id number] ID Type Hospital Number Cautery Settings Cut Setting 50 Coag Setting 50 ESU Grounding Pad Ground Pad Type Adult Grounding Pad Site Right thigh Grounding Pad RENETTA JOHN RN Applied By Grounding Pad Site Warm, dry and intact Skin Condition Before Cautery Grounding Pad Site Unchanged Skin Condition After Cautery Last Modified By: PRESTON ALANIS RN 05/20/19 14:31:24 [facility] IntraOp Cautery Audit 05/20/19 14:31:24 Media Relations Associate: CHANTELL Modifier: CHANTELL <+> 1 Grounding Pad Site <+> 1 ID Number [facility] IntraOp Communication Entry 1 Entry 2 Communication To Family/Significant other Family/Significant other Comment START UPDATE Communication By RENETTA JOHN, PRESTON THOMPSON RN Date and Time 05/20/19 14:14:00 05/20/19 15:38:00 Last Modified By: PRESTON ALANIS RN TAYLOR, MELISSA A, RN 05/20/19 15:40:41 05/20/19 15:40:41 [facility] IntraOp Communication Audit 05/20/19 15:40:41 Media Relations Associate: TAYLORME Modifier: TAYLORME <+> 1 Communication By <+> 1 Date and Time <+> 2 Communication By <+> 2 Date and Time <+> 2 Communication To <+> 2 Comment [facility] IntraOp Counts Verification Entry 1 Procedure Knee Total Joint Revision(Left) Count Info Count Type Sponge, Sharps, Miscellaneous Counts Verification Baseline/pre-procedure Sequence Count Results Not Applicable Counts Performed By Count Performed By DIAN HOFFMANN (Scrub) Count Performed By RENETTA JOHN RN (RN) Last Modified By: PRESTON ALANIS RN 05/20/19 14:34:44 [facility] IntraOp Counts Verification Audit 05/20/19 14:34:44 Media Relations Associate: ANNABELLEME Modifier: TAYLORME 1 <*> Procedure Knee Total Joint Revision(Left) 1 <+> Count Performed By (Scrub) 1 <+> Count Performed By (RN) [facility] IntraOp Counts Final Entry 1 Procedure Knee Total Joint Revision(Left) Final Count Info Count Type Sponge, Sharps, Miscellaneous Counts Verification Skin Closure/end of Sequence procedure Count Results Correct, surgeon notified Counts Performed By Count Performed By Leona Ott, (Scrub) Allison Pref Card Builder Count Performed By PRESTON ALANIS RN (RN) Last Modified By: PRESTON ALANIS RN 05/20/19 16:28:44 [facility] IntraOp Counts Final Audit 05/20/19 16:28:44 Media Relations Associate: ANNABELLEME Modifier: ANNABELLEME 1 <*> Procedure Knee Total Joint Revision(Left) 1 <+> Count Performed By (Scrub) 1 <+> Count Performed By (RN) [facility] IntraOp Cultures and Spec Summary Entry 1 Cultrures and Specimens Specimen Ordered: Yes Test(s) Routine/Path-Lab, Requested/Final Culture(s)/Microbiology Disposition Last Modified By: PRESTON ALANIS RN 05/20/19 13:59:09 [facility] IntraOp Departure from OR Entry 1 Integumentary Assessment Integumentary WDL Assessment WDL Transfer/Handoff Transfer to PACU Phase I Handoff Method Phone call Handoff Reported to THI STEPHENSON RN Post-op Transport Stretcher/Eliazar Via Patient Transport PRESTON ALANIS RN, Accompanied by SUZIE DAY, MAINTENANCE SCHEDULER, PRESS TECHNICIAN-ANS Last Modified By: PRESTON ALANIS RN 05/20/19 13:59:58 [facility] IntraOp Drains and Tubes Entry 1 Device Type Hemovac Size LEFT KNEE Drain/Tube Activity Inserted Drain/Tube Drainage Red Device Location LEFT KNEE Tube Dressing Dry, Intact Condition Last Modified By: PRESTON ALANIS RN 05/20/19 14:04:14 [facility] IntraOp Dressing and Packing Entry 1 Entry 2 Type Dressing Dressing Location LEFT KNEE LEFT KNEE Wound Dressing Item Other, Skin Closure Glue Other, Skin Closure Glue Wound Packing Type Tape Type Supplemental Limb immobilizer Limb immobilizer Applications Applied By ELEUTERIO COLUNGA CSA Other Comments [employer], Last Modified By: PRESTON ALANIS RN TAYLOR, MELISSA A, RN 05/20/19 14:01:17 05/20/19 14:01:54 [facility] IntraOp Dressing and Packing Audit 05/20/19 14:01:54 Media Relations Associate: CHANTELL Modifier: CHANTELL <+> 2 Type <+> 2 Location <+> 2 Wound Dressing Item <+> 2 Applied By <+> 2 Supplemental Applications <+> 2 Other Comments [facility] IntraOp Fire Risk Assessment Entry [...] Modified By: PRESTON ALANIS RN 05/20/19 14:27:12 [facility] IntraOp Fire Risk Assessment Audit 05/20/19 14:27:12 Media Relations Associate: CHANTELL Modifier: ANNABELLEME <+> 1 Fire Risk Assessment Verified By <+> 1 Fire Risk Assessment Verified Date/Time [facility] IntraOp General Case Hematology Specialist 1 Case Information OR OR 04 [facility] Case Level 1 Room Verified Yes Wound Class I - Clean Specialty SN Orthopedic Anesthesia Type General ASA Class 3 Diagnosis Preop Diagnosis LEFT KNEE INFECTED TOTAL KNEE ARTHROPLASTY Postop Same As Preop No Postop Diagnosis SEE MD POST OP NOTES Last Modified By: PRESTON ALANIS RN 05/20/19 14:26:30 [facility] IntraOp General Case Data Audit 05/20/19 14:26:30 Media Relations Associate: CHANTELL Modifier: CHANTELL <+> 1 ASA Class SJ IntraOp Implant Log Entry 1 Entry 2 Entry 3 Type Implant (Synthetic) Implant (Synthetic) Implant (Synthetic) Implant Log Implant Type Bone Cement Bone Cement Other Tissue Implant Type Implant CEMENT BONE SURG SMPLX CEMENT BONE SURG SMPLX PUTY OSTEOBST BN VD Identification P [id number] [id number] FILL [id number] Description Implant Quantity 2 2 1 Implant Site LEFT KNEE LEFT KNEE LEFT KNEE Implant Identification Model Number Implant Identification Serial Number Implant [id number] Identification Lot Number Implant Breana:Breana [place] [facility] Identification Orthopaedics Orthopaedics Mission Analyst Name: Implant [id number] Identification Catalog Number Implant Size Implant Has an Yes Yes Yes Expiration Date Implant Expiration 05/02/21 04/02/21 10/31/21 Date Wasted Radioactive Material Time Implanted Tissue Implant Continue for Tissue Implant Documentation Tissue Identification Number Graft Prep Per Mission Analyst Instructions: Tissue Preparation Method: Reconstitution Solution: Reconstitution Solution Lot Number Reconstitution Solution Expiration Date: Thawing Solution Thawing Solution Lot Number Thawing Solution Expiration Date Preparation Materials, Other Preparation Materials, Other Lot Number Preparation Materials, Other Expiration Date Tissue Prepared/Processed By Mission Analyst Paperwork Completed Implant Type Comment Last Modified By: PRESTON ALANIS RN TAYLOR, MELISSA A, RN TAYLOR, MELISSA A, RN 05/20/19 14:38:06 05/20/19 15:31:45 05/20/19 14:36:36 Entry 4 Entry 5 Entry 6 Type Implant (Synthetic) Implant (Synthetic) Implant (Synthetic) Implant Log Implant Type Hardware Hardware Hardware Tissue Implant Type Implant COMP FEM PS KEITH NO.5 STEM CEMENTED BASEPLT TRIATHLON Identification [id number] Description Implant Quantity 1 1 1 Implant Site LEFT KNEE LEFT KNEE LEFT KNEE Implant Identification Model Number Implant Identification Serial Number Implant [id number] Identification Lot Number Implant Breana:[place]:Breana Breana:[place] Identification Orthopaedics Orthopaedics Orthopaedics Mission Analyst Name: Implant [id number] Identification Catalog Number Implant Size Implant Has an Yes Yes Yes Expiration Date Implant Expiration 12/15/23 12/19/23 09/24/23 Date Wasted Radioactive Material Time Implanted Tissue Implant Continue for Tissue Implant Documentation Tissue Identification Number Graft Prep Per Mission Analyst Instructions: Tissue Preparation Method: Reconstitution Solution: Reconstitution Solution Lot Number Reconstitution Solution Expiration Date: Thawing Solution Thawing Solution Lot Number Thawing Solution Expiration Date Preparation Materials, Other Preparation Materials, Other Lot Number Preparation Materials, Other Expiration Date Tissue Prepared/Processed By Mission Analyst Paperwork Completed Implant Type Comment Last Modified By: PRESTON ALANIS RN TAYLOR, MELISSA A, RN TAYLOR, MELISSA A, RN 05/20/19 16:06:58 05/20/19 16:06:58 05/20/19 16:06:58 Entry 7 Type Implant (Synthetic) Implant Log Implant Type Hardware Tissue Implant Type Implant INSRT TIB ??#6 Identification [id number] Description Implant Quantity 1 Implant Site LEFT KNEE Implant Identification Model Number Implant Identification Serial Number Implant [id number] Identification Lot Number Implant Breana:[place] Identification Orthopaedics Mission Analyst Name: Implant [id number] Identification Catalog Number Implant Size Implant Has an Yes Expiration Date Implant Expiration 05/01/22 Date Wasted Radioactive Material Time Implanted Tissue Implant Continue for Tissue Implant Documentation Tissue Identification Number Graft Prep Per Mission Analyst Instructions: Tissue Preparation Method: Reconstitution Solution: Reconstitution Solution Lot Number Reconstitution Solution Expiration Date: Thawing Solution Thawing Solution Lot Number Thawing Solution Expiration Date Preparation Materials, Other Preparation Materials, Other Lot Number Preparation Materials, Other Expiration Date Tissue Prepared/Processed By Mission Analyst Paperwork Completed Implant Type Comment Last Modified By: PRESTON ALANIS RN 05/20/19 16:21:15 [facility] IntraOp Implant Log Audit 05/20/19 16:21:15 Media Relations Associate: CHANTELL Modifier: CHANTELL <+> 7 Implant Identification Description <+> 7 Implant Identification Lot Number <+> 7 Implant Identification Mission Analyst Name: <+> 7 Implant Expiration Date <+> 7 Implant Site <+> 7 Implant Quantity <+> 7 Implant Identification Catalog Number <+> 7 Implant Type <+> 7 Implant Has an Expiration Date <+> 7 Type 05/20/19 16:06:58 Media Relations Associate: ANNABELLEME Modifier: CHANTELL <+> 4 Implant Identification Description <+> 4 Implant Identification Lot Number <+> 4 Implant Identification Mission Analyst Name: <+> 4 Implant Expiration Date <+> 4 Implant Identification Catalog Number <+> 5 Implant Identification Description <+> 5 Implant Identification Lot Number <+> 5 Implant Identification Mission Analyst Name: <+> 5 Implant Expiration Date <+> 5 Implant Identification Catalog Number <+> 6 Implant Identification Description <+> 6 Implant Identification Lot Number <+> 6 Implant Identification Mission Analyst Name: <+> 6 Implant Expiration Date <+> 6 Implant Site <+> 6 Implant Quantity <+> 6 Implant Identification Catalog Number <+> 6 Implant Type <+> 6 Implant Has an Expiration Date <+> 6 Type 05/20/19 15:31:45 Media Relations Associate: CHANTELL Modifier: ANNABELLEME 2 <*> Implant Identification Description CEMENT BONE SMPLX PRO FULL [id number] 2 <*> Implant Identification Catalog [id number] Number 05/20/19 14:38:06 Media Relations Associate: CHANTELL Modifier: ANNABELLEME 1 <*> Implant Identification Description [id number] 1 <+> Implant Identification Mission Analyst Name: 1 <+> Implant Identification Catalog Number 05/20/19 14:37:13 Media Relations Associate: CHANTELL Modifier: ANNABELLEME <+> 5 Implant Site <+> 5 Implant Quantity <+> 5 Implant Type <+> 5 Implant Has an Expiration Date <+> 5 Type 05/20/19 14:36:36 Media Relations Associate: CHANTELL Modifier: TAYLORME 1 <+> Implant Identification Description 1 <+> Implant Identification Lot Number 1 <+> Implant Expiration Date 1 <*> Implant Quantity 3 2 <+> Implant Identification Description 2 <+> Implant Identification Lot Number 2 <+> Implant Identification Mission Analyst Name: 2 <+> Implant Expiration Date 2 <*> Implant Quantity 1 2 <+> Implant Identification Catalog Number 2 <*> Implant Type Other 3 <+> Implant Identification Description 3 <+> Implant Identification Lot Number 3 <+> Implant Identification Mission Analyst Name: 3 <+> Implant Expiration Date 3 <+> Implant Identification Catalog Number 3 <*> Implant Type Hardware [facility] IntraOp Intraoperative Assessment Entry 1 [...] Modified By: PRESTON ALANIS RN 05/20/19 14:03:35 [facility] IntraOp Intraoperative Equipment Entry 1 Type Equipment Equipment Equipment Dorinda Suction System ID Number [id number] Intraop Monitoring Antiembolic Devices Antiembolic Devices Sequential compression device, knee high Antiembolic Device Right Location Antiembolic Device [id number] ID Number Scopes Photo/Video Documentation Last Modified By: PRESTON ALANIS RN 05/20/19 14:31:04 [facility] IntraOp Medication Admin Entry 1 Entry 2 Entry 3 Medication/Irrigant Bacitracin 50,000units Bacitracin 50,000units NS 0.9% 50ml injection powder vial powder vial - [id number] Combo Med List Time Administered Route of IRRIGATION IRRIGATION MIXED WITH BACITRACIN Administration Dose Dose [id number] 10 Unit of Measure units units ml [...] TOBRAMYCIN 1.2GRAMS X 3 FOR ANTIBIOTIC SPACER [facility] IntraOp Patient Positioning Entry 1 [...] Modified By: PRESTON ALANIS RN 05/20/19 14:32:47 [facility] IntraOp Sign In Entry 1 [...] Modified By: PRESTON ALANIS RN 05/20/19 14:00:31 [facility] IntraOp Sign Out Entry 1 [...] Modified By: PRESTON ALANIS RN 05/20/19 16:51:18 [facility] IntraOp Sign Out Audit 05/20/19 16:51:18 Media Relations Associate: CHANTELL Modifier: CHANTELL <+> 1 RN Sign Out Signature Date/Time [facility] IntraOp Skin Prep Entry 1 Procedure Knee Total Joint Revision(Left) Prescribed Yes Pre-Surgical Prep Completed Prep Area LEFT LEG Intraop Prep Integumentary WDL Assessment WDL Prep Agents Alcohol, Chlorhexadine gluconate, Chloraprep, DuraPrep Prep by RENETTA JOHN, RN Hair Removal Methods No hair removal performed Last Modified By: PRESTON ALANIS RN 05/20/19 14:33:43 [facility] IntraOp Surgical Procedures Entry 1 Procedure Knee Total Joint Revision Modifiers Left Additional (LT TOTAL KNEE Procedure ARTHROPLASTY EXPLANT Description WITH INSERTION OF ANTIBIOTIC SPACER) Primary Procedure Yes Primary Surgeon LION DAVIS MD-ORT Start 05/20/19 14:15:00 Stop 05/20/19 16:50:00 Anesthesia Type General Specialty SN Orthopedic Wound Class I - Clean Last Modified By: PRESTON ALANIS RN 05/20/19 16:51:02 [facility] IntraOp Surgical Procedures Audit 05/20/19 16:51:02 Media Relations Associate: ANNABELLEME Modifier: ANNABELLEME <+> 1 Stop 05/20/19 14:27:06 Media Relations Associate: ANNABELLEME Modifier: ANNABELLEME <+> 1 Start [facility] IntraOp Temp Regulation Devices Entry 1 Temp Regulation Temperature Forced Air Warming Regulation Device device, Warm blankets Temperature Upper body Regulation Site Temperature Baljinder Aj, PRESS TECHNICIAN Regulation Device Applied by Last Modified By: PRESTON ALANIS RN 05/20/19 14:33:12 [facility] IntraOP Time Out Entry 1 [...] Modified By: PRESTON ALANIS RN 05/20/19 14:25:26 [facility] IntraOP Time Out Audit 05/20/19 14:25:26 Media Relations Associate: ANNABELLEME Modifier: ANNABELLEME 1 <+> Time Out Pause Time 1 <*> Procedure to be Performed Knee Total Joint Revision(Left) [facility] IntraOp Tourniquet Entry 1 Type Pneumatic Serial/Unit Number [id number] Setting 300 Pheumatic Yes Tourniquet Checked Per Protocol Size 34 inches Placement Thigh, left upper Skin Protection - Yes Padded Under Cuff Applied By ELEUTERIO COLUNGA, CSA Removed By ELEUTERIO COLUNGA, CSA Times Start Time 05/20/19 14:14:00 Stop Time 05/20/19 15:58:00 Last Modified By: PRESTON ALANIS RN 05/20/19 16:52:27 [facility] IntraOp Tourniquet Audit 05/20/19 16:52:27 Media Relations Associate: CHANTELL Modifier: TAYLORME <+> 1 Stop Time 05/20/19 14:34:33 Media Relations Associate: CHANTELL Modifier: ANNABELLEME 1 <+> Setting 1 [...] WATTSDR Correct Billing Electronically signed by [facility] Conversion Physical Geographer Cerner at 11/18/2022 9:31 AM CDT documented in this encounter Plan of Treatment Not on file documented as of this encounter Visit Diagnoses Not on filedocumented in this encounter Care Teams Sorter Operator Relationship Specialty Start Date End Date Alfredo Aguiar MD [address] [place] [address] PCP - General Adolescent Medicine 10/16/22 10/19/22 Alfredo Aguiar MD [address] [place] [address] PCP - General Adolescent Medicine 10/20/22 documented as of this encounter
--- OUTSIDE RECORDS SUMMARY | 2025-05-17 10:04 | XMS_ITS | Encounter Summary ---
Author Organization [employer] ([place], [place], [place], [place]) Address [address] [place] [address] Care Team Providers Care Rn Clinical Appeals Name Role Phone Alfredo Aguiar MD Primary Care Provider + [phone] Alfredo Aguiar MD Primary Care Provider + [phone] Encounter Details Date Type Department Care Team (Late st Contact Info) Description 05/20/[address] 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 Medical HX includes [place] of Hearing, DM II, Chronic cough, asthma [...] Devi PHYSICAL THERAPIST - 05/21/2019 8:37 EDT Custodial Goals Mobility/Bed Mobility LTG PT Grid Goal [...] Devi PHYSICAL THERAPIST - 05/21/2019 8:37 EDT [place] PT Charges Gait Training Each 15 Min : 1 PT Eval Low Complexity : 1 Ian Devi PHYSICAL THERAPIST - 05/21/2019 8:37 EDT documented in this encounter Plan of Treatment Not on file documented as of this encounter Visit Diagnoses Not on filedocumented in this encounter Care Teams Rn Clinical Appeals Relationship Specialty Start Date End Date Alfredo Aguiar MD [address] [place] [address] PCP - General Adolescent Medicine 10/16/22 10/19/22 Alfredo Aguiar MD [address] [place] [address] PCP - General Adolescent Medicine 10/20/22 documented as of this encounter
--- OUTSIDE RECORDS SUMMARY | 2025-05-17 10:04 | XMS_ITS | Encounter Summary ---
Author Organization [employer] ([place], [place], [place], [place]) Address [address] [place] [address] Care Team Providers Care Nursing Administrator Name Role Phone Alfredo Aguiar MD Primary Care Provider + [phone] Alfredo Aguiar MD Primary Care Provider + [phone] Encounter Details Date Type Department Care Team (Late st Contact Info) Description 05/20/2019 Transcribed Document [facility] [address] [place] [address] Lion Allison MD [address] [place] [address] Social History Tobacco Use Types Packs/Day Years [...] Procedure: explant/spacer L TKA Surg: Keegan Asst: Hdruv Anesthesia: gETA EBL: 200 Complications: none Dispo: pacu Findings: prox tibial bone loss, used metal baseplate w/ 100 mm stem to bypass documented in this encounter Plan of Treatment Not on file documented as of this encounter Visit Diagnoses Not on filedocumented in this encounter Care Teams Nursing Administrator Relationship Specialty Start Date End Date Alfredo Aguiar MD [address] [place] [address] PCP - General Adolescent Medicine 10/16/22 10/19/22 Alfredo Aguiar MD [address] [place] [address] PCP - General Adolescent Medicine 10/20/22 documented as of this encounter
--- OUTSIDE RECORDS SUMMARY | 2025-05-17 10:04 | XMS_ITS | Encounter Summary ---
Author Organization [employer] ([place], [place], [place], [place]) Address [address] [place] [address] Care Team Providers Care Manager Human Capital Name Role Phone Alfredo Aguiar MD Primary Care Provider + [phone] Alfredo Aguiar MD Primary Care Provider + [phone] Encounter Details Date Type Department Care Team (Late st Contact Info) Description 05/20/2019 Transcribed Document [address] [address] Massimo Butterfield MD [address] [place] [address] Social History Tobacco Use Types Packs/Day [...] COVERING SERVICE UNTIL THURSDAY AM 05/23/19--------CONTACT INFO [phone] HPI: Patient is an 78 yo male admitted to [facility] for a left total knee revision arthroplasty. 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
--- OUTSIDE RECORDS SUMMARY | 2025-05-17 10:04 | XMS_ITS | Encounter Summary ---
Author Organization [facility] Address [address] [place] [address] Care Team Providers Care Instrument Repairer Helper Name Role Phone Alfredo Aguiar MD Primary Care Provider [phone] Encounter Details Date Type Department Care Team [...] 9:20 AM EDT Office Visit [facility] Endocrinology [address] [place] [phone] Neena Fields, REGENERATION OPERATOR [address] [facility] [address] [place] [phone] documented as of this encounter Visit Diagnoses Not on filedocumented in this encounter Additional Health Concerns Assessment Noted Time A fall risk assessment has been complete d for the patient 02/01/2025 12:40 PM EDT A Body Mass Index follow-up plan has been documented for the patient 04/24/2025 10:22 AM EDT documented as of this encounter Care Teams Instrument Repairer Helper Relationship Specialty Start Date End Date Alfredo Aguiar MD [address] [place] [address] PCP - General 12/14/20 documented as of this encounter
--- OUTSIDE RECORDS SUMMARY | 2025-05-17 10:04 | XMS_ITS | Encounter Summary ---
Author Organization [employer] ([place], [place], [place], [place]) Address [address] [place] [address] Care Team Providers Care Printer'S Devil Name Role Phone Alfredo Aguiar MD Primary Care Provider + [phone] Alfredo Aguiar MD Primary Care Provider + [phone] Encounter Details Date Type Department Care Team (Late st Contact Info) Description 05/20/2019 Transcribed Document [place] Family Medicine [facility] [place] [address] ProviderEryn MD [address] [place] [address] Social History Tobacco Use Types Packs/Day Years Used Date Smoking Tobacco: Never Assessed Sex and Gender Information Value Date Recorded Sex Assigned at Not on file Legal Sex Male 5:45 PM CDT Gender Identity Not on file Sexual Orientation Not on file documented as of this encounter Miscellaneous Notes * Cerner Conversion Note - Eryn Arcos MD - 05/20/2019 1:15 PM CDT [facility] Main OR Preop Summary Primary Physician: LION DAVIS MD-ORT Finalized Date/Time: 05/20/19 14:16:08 Pt. Name: LORA JAIN JR/Sex: 1940 Male Med Rec #: [id number] Physician: LION DAVIS MD-ORT Financial #: [id number] Pt. Type: I Room/Bed: ASA/2 Admit/Disch: 05/20/19 06:54:00 - Institution: [facility] PreOp Case Times Entry 1 In Preop 05/20/19 10:10:00 Ready for Holding n/a Room Patient Ready for 05/20/19 11:35:00 Surgery Patient Out of Preop 05/20/19 13:41:00 Patient Out of n/a Holding Room Last Modified By: EVAN Drake RN 05/20/19 14:16:06 [facility] PreOp Case Times Audit 05/20/19 14:16:06 Offset Press Operator Helper: REISNERK Modifier: WILSONDL <+> 1 Patient Out of Preop 05/20/19 11:35:30 Offset Press Operator Helper: REISNERK Modifier: REISNERK <+> 1 Patient Ready for Surgery Finalized By: EVAN Drake, RN Document Signatures Signed By: EVAN Drake RN 05/20/19 14:16 Electronically signed by Wellington [facility] Conversion [employer] Crewmember Cerner at 11/18/2022 9:37 AM CDT documented in this encounter Plan of Treatment Not on file documented as of this encounter Visit Diagnoses Not on filedocumented in this encounter Care Teams Printer'S Devil Relationship Specialty Start Date End Date Alfredo Aguiar MD [address] [place] [address] PCP - General Adolescent Medicine 10/16/22 10/19/22 Alfredo Aguiar MD [address] [place] [address] PCP - General Adolescent Medicine 10/20/22 documented as of this encounter
--- OUTSIDE RECORDS SUMMARY | 2025-05-17 10:05 | XMS_ITS | Encounter Summary ---
Author Organization [facility] ([place], [place], [place], [place]) Address [address] [place] [address] Care Team Providers Care Hospital Social Worker Name Role Phone Alfredo Aguiar MD Primary Care Provider + [phone] Alfredo Aguiar MD Primary Care Provider + [phone] Encounter Details Date Type Department Care Team (Late st Contact Info) Description 05/20/2019 Transcribed Document [facility] [address] [place] [address] Guillermina Allison MD [address] [place] [address] Social History Tobacco Use Types Packs/Day Years [...] of resorbable antibiotic cement beads, left knee. CIGARETTE PACKER: Pascual Bartlett. ANESTHESIA: General endotracheal anesthesia with femoral and sciatic nerve blocks. ESTIMATED BLOOD LOSS: 250 mL. COMPLICATIONS: Fracture of the proximal tibia sustained during explantation. This was essentially nondisplaced except for a small fragment anteromedially. We managed it with a 12 x 100 mm stem and a metal baseplate for spacer. TOTAL TOURNIQUET TIME: 103 minutes. IMPLANTS USED: 1. [place] Triathlon size 5 posterior stabilized femoral component. [...] correct at the end of the case. /[id number] MD TEENA Paul/AQ / TEENA / MODL /[id number] documented in this encounter Plan of Treatment Not on file documented as of this encounter Visit Diagnoses Not on filedocumented in this encounter Care Teams Hospital Social Worker Relationship Specialty Start Date End Date Alfredo Aguiar MD [address] [place] [address] PCP - General Adolescent Medicine 10/16/22 10/19/22 Alfredo Aguiar MD [address] [place] [address] PCP - General Adolescent Medicine 10/20/22 documented as of this encounter
--- OUTSIDE RECORDS SUMMARY | 2025-05-17 10:05 | XMS_ITS | Encounter Summary ---
Author Organization [employer] ([place], [place], [place], [place]) Address [address] [place] [address] Care Team Providers Care Operations And Intelligence Assistant Name Role Phone Alfredo Aguiar MD Primary Care Provider + [phone] Alfredo Aguiar MD Primary Care Provider + [phone] Encounter Details Date Type Department Care Team (Late st Contact Info) Description 05/18/2019 Transcribed Document [facility] [place] [address] ProviderEryn MD [address] [place] [address] Social History Tobacco Use Types Packs/Day Years [...] Feelings expressed, Relationship strengths identified Spiritual and Rastafari : Prayer shared, Spiritual/Rastafari support provided TREVOR FLORIAN 05/20/2019 12:36 EDT documented in this encounter Plan of Treatment Not on file documented as of this encounter Visit Diagnoses Not on filedocumented in this encounter Care Teams Operations And Intelligence Assistant Relationship Specialty Start Date End Date Alfredo Aguiar MD [address] [place] [address] PCP - General Adolescent Medicine 10/16/22 10/19/22 Alfredo Aguiar MD [address] [place] [address] PCP - General Adolescent Medicine 10/20/22 documented as of this encounter
--- OUTSIDE RECORDS SUMMARY | 2025-05-17 10:05 | XMS_ITS | Encounter Summary ---
Author Organization [employer] ([place], [place], [place], [place]) Address [address] [place] [address] Care Team Providers Care Wader Boot Top Assembler Name Role Phone Alfredo Aguiar MD Primary Care Provider + [phone] Alfredo Aguiar MD Primary Care Provider + [phone] Encounter Details Date Type Department Care Team (Late st Contact Info) Description 05/20/2019 Transcribed Document [facility] [place] [facility] [place] [address] ProviderEryn MD [address] [place] [address] Social History Tobacco Use Types Packs/Day Years [...] LYNDSAY GARZA OTR/Jacobo - 05/22/2019 12:32 EDT Senior Care Goals, OT Dressing, Lower Body LTG Grid [...] goal Comment : TDWB LLE LYNDSAY GARZA OTR/aJcobo - 05/22/2019 12:32 EDT Bed Mobility/ Bed [...] Min A x2. Pt issued AE of remote broadcast engineer/long sponge/shoe horn/leg field identification specialist. Pt was left in chair with call [...] 5 Location : Leg, left LYNDSAY GARZA AMRTINA/Jacobo - 05/22/2019 12:32 EDT Image 1 - Images currently included in the form version of this document have not been included in the text rendition version of the form. Anticipated Discharge Needs, OT/PT Anticipated Discharge to : Unit, rehabilitation Recommend Continued Therapy at Discharge : Yes GIRMA GARZAMARTINA Hernandez/Jacobo - 05/22/2019 12:32 EDT [place] OT Charges OT Selfcare/Hm Mgmt Ea 15 Min : 1 OT Eval Moderate Complexity : 1 LYNDSAY GARZAMARTINA/Jacobo - 05/22/2019 12:32 EDT documented in this encounter Plan of Treatment Not on file documented as of this encounter Visit Diagnoses Not on filedocumented in this encounter Care Teams Wader Boot Top Assembler Relationship Specialty Start Date End Date Alfredo Aguiar MD [address] [place] [address] PCP - General Adolescent Medicine 10/16/22 10/19/22 Alfredo Aguiar MD [address] [place] [address] PCP - General Adolescent Medicine 10/20/22 documented as of this encounter
--- OUTSIDE RECORDS SUMMARY | 2025-05-17 10:05 | XMS_ITS | Encounter Summary ---
Author Organization [employer] ([place], [place], [place], [place]) Address [address] [place] [address] Care Team Providers Care Continuous Improvement Specialist Name Role Phone Alfredo Aguiar MD Primary Care Provider + [phone] Alfredo Aguiar MD Primary Care Provider + [phone] Encounter Details Date Type Department Care Team (Late st Contact Info) Description 05/23/2019 Transcribed Document [facility] Family Medicine [facility] [place] [address] ProviderEryn MD [address] [place] [address] Social History Tobacco Use Types Packs/Day Years [...] On: 05/23/2019 13:10 EDT by JUANY HERNANDEZ, RN-Front Worker Initial Assessment I Previously Documented Living Environment : No qualifying data available. Living Situation : Home Patient Lives With : Spouse Is the Patient a Caregiver at Home? : No Emergency Contact #1 : Ashli Vázquez Emergency Contact #1 Emergency Contact #1 Relationship : Emergency Contact #2 : Raysa Luz Emergency Contact #2 Emergency Contact #2 Relationship : daughter VAP, JUANY A, RN-Front Worker - 05/23/2019 13:10 EDT Initial Assessment II Sensory and Motor Deficits : None JUANY HERNANDEZ RN-Front Worker - 05/23/2019 13:10 EDT Discharge Needs I Anticipated Discharge Date : 05/23/2019 EDT Anticipated Discharge To, CM : intermediate facility Current Home Treatment/Equipment : Current Home Treatment/Equipment No qualifying data available. Documentation Status Complete : Yes JUANY HERNANDEZ RN-Front Worker - 05/23/2019 13:10 EDT Discharge Needs II Professional Skilled Services : Professional Skilled Services No qualifying data available. Needs Assistance with Transportation : Yes Discharge Options Discussed with Patient : Short term rehabilitation JUANY HERNANDEZ RN-Front Worker - 05/23/2019 13:10 EDT Narrative Note Narrative Note : 78yo male pt s/p LTK revision. Met with pt and family at bedside this am to discuss DCP. They request rehab at [facility], referral sent via Sanjay and informed Colleene. PICC placed today for IV abx, ID will follow pt at rehab. Pt has bed on SRU today. [facility] WC Van @ 1615. No other CM needs identified. JUANY HERNANDEZ RN-Front Worker - 05/23/2019 13:10 EDT Electronically signed by Wellington [facility] Conversion Director Of Operations For Therapy Cerner at 11/18/2022 9:38 AM CDT documented in this encounter Plan of Treatment Not on file documented as of this encounter Visit Diagnoses Not on filedocumented in this encounter Care Teams Continuous Improvement Specialist Relationship Specialty Start Date End Date Alfredo Aguiar MD [address] [place] [address] PCP - General Adolescent Medicine 10/16/22 10/19/22 Alfredo Aguiar MD [address] [place] [address] PCP - General Adolescent Medicine 10/20/22 documented as of this encounter
--- OUTSIDE RECORDS SUMMARY | 2025-05-17 10:05 | XMS_ITS | Encounter Summary ---
Author Organization [employer] ([place], [place], [place], [place]) Address [address] [facility] [place] [address] Care Team Providers Care Roll Coverer Name Role Phone Alfredo Lackey MD Primary Care Provider + [phone] Alfredo Lackey MD Primary Care Provider + [phone] Encounter Details Date Type Department Care Team (Late st Contact Info) Description 05/20/2019 Transcribed Document [facility] 1 [place] [address] Lion Allison MD [address] [place] [address] Social History Tobacco Use Types Packs/Day Years [...] : 1940 Primary Care Provider ALFREDO LACKEY (REF[facility] History of Present Illness painful TKA [...] on filedocumented in this encounter Care Teams Roll Coverer Relationship Specialty Start Date End Date Alfredo Lackey MD [address] [place] [address] PCP - General Adolescent Medicine 10/16/22 10/19/22 Alfredo Lackey MD [address] [place] [address] PCP - General Adolescent Medicine 10/20/22 documented as of this encounter
--- OUTSIDE RECORDS SUMMARY | 2025-05-17 10:05 | XMS_ITS | Encounter Summary ---
Author Organization [employer] ([place], [place], [place], [place]) Address [address] [place] [address] Care Team Providers Care Ledger Clerk Name Role Phone Alfredo Aguiar MD Primary Care Provider + [phone] Alfredo Aguiar MD Primary Care Provider + [phone] Encounter Details Date Type Department Care Team (Late st Contact Info) Description 08/04/2019 Transcribed Document [facility] [place] [address] ProviderEryn MD [address] [place] [address] Social History Tobacco Use Types Packs/Day Years Used Date Smoking Tobacco: Never Assessed Sex and Gender Information Value Date Recorded Sex Assigned at Not on file Legal Sex Male 5:45 PM CDT Gender Identity Not on file Sexual Orientation Not on file documented as of this encounter Miscellaneous Notes * [employer] Conversion Note - Eryn ProviderMD - 08/04/2019 9:48 AM CYLINDER PRESS OPERATOR HELPER PAT Adult Entered On: 08/04/2019 9:49 EST [...] Source : Measured Height Entry Format : [place] Height, Feet : 0 ft(Converted to: 0 cm, 0 Inch) Height, Inches : 72 Inch(Converted to: 6 ft 0 Inch, 182.88 cm) Clinical Height : 182.88 cm Weight Source : Standing scale Weight Entry Format : [place] Clinical Dosing Weight : 86.45 kg Weight, Pounds : 190.2 lb Body Surface Area (BSA) : 2.09 m2 Body Mass Index : 25.8 kg/m2 (HI) [place] Body Weight : 77 kg Marta Zurita RN - 08/04/2019 9:48 EST Health Histories Smoking Status : Never (less than 100 in lifetime; none in last 30 days) Smokeless Tobacco Status : Never Marta Zurita RN - 08/04/2019 10:20 EST Implant/Device Type, Jewelry Dipper and Model : hernia clips< LEft knee spacer, EVAN Drake RN - 08/17/2019 10:51 EST Social History (As Of: 08/17/2019 10:53:12 EST) Tobacco: Never (less than 100 in lifetime) Smoking Status. Never Smokeless Tobacco Status. Second Hand Smoke Exposure: Yes. 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 (Last Updated: 03/24/2018 13:52:01 EDT by [...] Marta Zurita RN - 08/04/2019 10:31 EST [place] Suicide Severity Rating Scale (C-SSRS) CSSRS Past [...] EST Preferred Name : Mele Support Person/Patient Organizational Development Director : Yes Want Family/Rep/Phys Notified of Admit : No Emergency Contact #1 : Raysa Escobar Emergency Contact #1 Emergency Contact #1 Relationship : daughter Emergency Contact #2 : Jessa Vázquez Emergency Contact #2 Emergency Contact #2 Relationship : daughter Primary Language : Divehi Preferred Communication Mode : Verbal Communication Barrier [...] 08/04/2019 10:31 EST Electronically signed by Wellington [facility] Conversion Tile Helper Cerner at 11/18/2022 9:18 AM CDT documented in this encounter Plan of Treatment Not on file documented as of this encounter Visit Diagnoses Not on filedocumented in this encounter Care Teams Ledger Clerk Relationship Specialty Start Date End Date Alfredo Aguiar MD [address] [place] [address] PCP - General Adolescent Medicine 10/16/22 10/19/22 Alfredo Aguiar MD [address] [place] [address] PCP - General Adolescent Medicine 10/20/22 documented as of this encounter
--- OUTSIDE RECORDS SUMMARY | 2025-05-17 10:05 | XMS_ITS | Encounter Summary ---
Author Organization [employer] ([place], [place], [place], [place]) Address [address] [place] [address] Care Team Providers Care Double Needle Operator Name Role Phone Alfredo Aguiar MD Primary Care Provider + [phone] Alfredo Aguiar MD Primary Care Provider + [phone] Encounter Details Date Type Department Care Team (Late st Contact Info) Description 08/04/[address] [facility] [place] [facility] Family [place] [facility] [place] [address] ProviderEryn MD [address] [place] [address] Social History Tobacco Use Types Packs/Day Years Used Date Smoking Tobacco: Never Assessed Sex and Gender Information Value Date Recorded Sex Assigned at Not on file Legal Sex Male 5:45 PM CDT Gender Identity Not on file Sexual Orientation Not on file documented as of this encounter Miscellaneous Notes * [employer] Conversion Note - Historical ProviderMD - 08/04/2019 3:35 PM DRAPERY ROD ASSEMBLER Event Note Entered On: 08/04/2019 15:37 EST Performed On: 08/04/2019 15:35 EST by Marta Zurita RN Event Note Description of Event : Pt having dental work done tomorrow and Thursday and expressed concern. Pt having a cracked crown replaced tomorrow, cavity filled on Thursday but that tooth may need extracted. Pt also expressed desire to return to [facility] in [place] after discharge. These concerns called to Jan at Dr. Allison's office. Also called and faxed labs, noting creatinine of 1.7. Marta Zurita RN - 08/04/2019 15:35 EST documented in this encounter Plan of Treatment Not on file documented as of this encounter Visit Diagnoses Not on filedocumented in this encounter Care Teams Double Needle Operator Relationship Specialty Start Date End Date Alfredo Aguiar MD [address] [place] [address] PCP - General Adolescent Medicine 10/16/22 10/19/22 Alfredo Aguiar MD [address] [place] [address] PCP - General Adolescent Medicine 10/20/22 documented as of this encounter
--- OUTSIDE RECORDS SUMMARY | 2025-05-17 10:05 | XMS_ITS | Encounter Summary ---
Author Organization [employer] ([place], [place], [place], [place]) Address [address] [place] [address] Care Team Providers Care Copyright Clerk Name Role Phone Alfredo Aguiar MD Primary Care Provider + [phone] Alfredo Aguiar MD Primary Care Provider + [phone] Encounter Details Date Type Department Care Team (Late st Contact Info) Description 05/25/2019 Transcribed Document [facility] [place] [facility] [place] [address] ProviderEryn MD [address] [place] [address] Social History Tobacco Use Types Packs/Day Years [...] on filedocumented in this encounter Care Teams Copyright Clerk Relationship Specialty Start Date End Date Alfredo Aguiar MD [address] [place] [address] PCP - General Adolescent Medicine 10/16/22 10/19/22 Alfredo Aguiar MD [address] [place] [address] PCP - General Adolescent Medicine 10/20/22 documented as of this encounter
--- OUTSIDE RECORDS SUMMARY | 2025-05-17 10:05 | XMS_ITS | Encounter Summary ---
Author Organization [employer] ([place], [place], [place], [place]) Address [address] [place] [address] Care Team Providers Care Automobile Mechanic Helper Name Role Phone Alfredo Aguiar MD Primary Care Provider + [phone] Alfredo Aguiar MD Primary Care Provider + [phone] Encounter Details Date Type Department Care Team (Late st Contact Info) Description 05/23/2019 Transcribed Document [facility] [place] Family Medicine [facility] [place] [address] ProviderEryn MD [address] [place] [address] Social History Tobacco Use Types Packs/Day Years [...] filedocumented in this encounter Care Teams Automobile Mechanic Helper Relationship Specialty Start Date End Date Alfredo Aguiar MD [address] [place] [address] PCP - General Adolescent Medicine 10/16/22 10/19/22 Alfredo Aguiar MD [address] [place] [address] PCP - General Adolescent Medicine 10/20/22 documented as of this encounter
--- OUTSIDE RECORDS SUMMARY | 2025-05-17 10:05 | XMS_ITS | Encounter Summary ---
Author Organization [employer] ([place], [place], [place], [place]) Address [address] [place] [address] Care Team Providers Care Revenue Stamp Clerk Name Role Phone Alfredo Aguiar MD Primary Care Provider + [phone] Alfredo Aguiar MD Primary Care Provider + [phone] Encounter Details Date Type Department Care Team (Late st Contact Info) Description 05/23/2019 Transcribed Document [facility] [place] [address] [place] [address] ProviderEryn MD [address] [place] [address] Social History Tobacco Use Types Packs/Day Years [...] on filedocumented in this encounter Care Teams Revenue Stamp Clerk Relationship Specialty Start Date End Date Alfredo Aguiar MD [address] [place] [address] PCP - General Adolescent Medicine 10/16/22 10/19/22 Alfredo Aguiar MD [address] [place] [address] PCP - General Adolescent Medicine 10/20/22 documented as of this encounter
--- OUTSIDE RECORDS SUMMARY | 2025-05-17 10:05 | XMS_ITS | Encounter Summary ---
Author Organization [employer] ([place], [place], [place], [place]) Address [address] [place] [address] Care Team Providers Care Belt Tender Name Role Phone Alfredo Aguiar MD Primary Care Provider + [phone] Alfredo Aguiar MD Primary Care Provider + [phone] Encounter Details Date Type Department Care Team (Late st Contact Info) Description 05/23/2019 Transcribed Document [facility] [place] [facility] [place] [address] ProviderEryn MD [address] [place] [address] Social History Tobacco Use Types Packs/Day Years [...] On: 05/23/2019 13:16 EDT by JUANY HERNANDEZ RN-Senior SpecialistIt Architecture Analyst Progress Note Discharge Arrangements : Patient Post-Acute Information Patient Name: LORA VÁZQUEZ JR Gender: Male : [birth year] Age: 78 Years Justin Referral(s): Service: Organization: Business Address: Phone Number: [facility] [address] [place], [address] Discharge Options Discussed with Patient : Short term rehabilitation Barriers to Discharge Unresolved : All resolved Designation of Choice Signed : Yes Patient Offered Choice/Affiliations Explained : Yes List/Info Provided Pt/Fam/Support Person : prison facilities Were Referrals Sent to Post Acute Providers : Yes JUANY HERNANDEZ, RN-Senior Specialist - 05/23/2019 13:16 EDT Electronically signed by [place], [facility] Conversion Regional Facilities Manager Cerner at 11/18/2022 9:37 AM CDT documented in this encounter Plan of Treatment Not on file documented as of this encounter Visit Diagnoses Not on filedocumented in this encounter Care Teams Belt Tender Relationship Specialty Start Date End Date Alfredo Aguiar MD [address] [place] [address] PCP - General Adolescent Medicine 10/16/22 10/19/22 Alfredo Aguiar MD [address] [place] [address] PCP - General Adolescent Medicine 10/20/22 documented as of this encounter
--- OUTSIDE RECORDS SUMMARY | 2025-05-17 10:05 | XMS_ITS | Encounter Summary ---
Author Organization [employer] ([place], [place], [place], [place]) Address [address] [place] [address] Care Team Providers Care Remedy Developer Name Role Phone Alfredo Aguiar MD Primary Care Provider + [phone] Alfredo Aguiar MD Primary Care Provider + [phone] Encounter Details Date Type Department Care Team (Late st Contact Info) Description 08/17/2019 Transcribed Document [facility] [place] Family [facility] [place] [address] ProviderEryn MD [address] [place] [address] Social History Tobacco Use Types Packs/Day Years Used Date Smoking Tobacco: Never Assessed Sex and Gender Information Value Date Recorded Sex Assigned at Not on file Legal Sex Male 5:45 PM CDT Gender Identity Not on file Sexual Orientation Not on file documented as of this encounter Miscellaneous Notes * [employer] Conversion Note - Eryn ProviderMD - 08/17/2019 6:35 PM DIRECTOR OF CASINO Evaluation, Physical Therapy Entered On: 08/18/2019 11:52 [...] DELMIS ATKINS, PT - 08/18/2019 11:36 EST Assisted Goals Mobility/Bed Mobility LTG PT Grid Goal [...] DELMIS ATKINS, PT - 08/18/2019 11:36 EST [employer] PT Charges PT Therap. Exercise 15 min : 1 Gait Training Each 15 Min : 1 PT Eval Low Complexity : 1 DELMIS ATKINS, PT - 08/18/2019 11:36 EST Electronically signed by [place] [facility] Conversion Anode Crew Supervisor Cerner at 11/18/2022 9:32 AM CDT documented in this encounter Plan of Treatment Not on file documented as of this encounter Visit Diagnoses Not on filedocumented in this encounter Care Teams Remedy Developer Relationship Specialty Start Date End Date Alfredo Aguiar MD [address] [place] [address] PCP - General Adolescent Medicine 10/16/22 10/19/22 Alfredo Aguiar MD [address] [place] [address] PCP - General Adolescent Medicine 10/20/22 documented as of this encounter
--- OUTSIDE RECORDS SUMMARY | 2025-05-17 10:05 | XMS_ITS | Encounter Summary ---
Author Organization [employer] ([place], [place], [place], [place]) Address [address] [facility] [place] [address] Care Team Providers Care Magazine Keeper Name Role Phone Alfredo Aguiar MD Primary Care Provider + [phone] Alfredo Aguiar MD Primary Care Provider + [phone] Encounter Details Date Type Department Care Team (Late st Contact Info) Description 05/23/2019 Transcribed Document [facility] [address] [place] [address] Massimo Butterfield MD [address] [place] [address] Social History Tobacco Use Types Packs/Day [...] is an 78 yo male admitted to [facility] for a left total knee [...] Exposure Yes 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 Allisno ABL anemia s/p 2 u PRBCs hyponatremia DMII- poor control A1C 10.7 preop Hx LUZ ELENA- has CPAP Hx RLS Hx prostate cancer- prostate removed Hx anemia Hx Gerd Plan: likely needs rehab placement- requesting [facility] ID following- anticipate PICC line and [...] on filedocumented in this encounter Care Teams Magazine Keeper Relationship Specialty Start Date End Date Alfredo Aguiar MD [address] [place] [address] PCP - General Adolescent Medicine 10/16/22 10/19/22 Alfredo Aguiar MD [address] [place] [address] PCP - General Adolescent Medicine 10/20/22 documented as of this encounter
--- OUTSIDE RECORDS SUMMARY | 2025-05-17 10:05 | XMS_ITS | Encounter Summary ---
Author Organization [employer] ([place], [place], [place], [place]) Address [address] [place] [address] Care Team Providers Care Apprentice Name Role Phone Alfredo Aguiar MD Primary Care Provider + [phone] Alfredo Aguiar MD Primary Care Provider + [phone] Encounter Details Date Type Department Care Team (Late st Contact Info) Description 05/20/2019 Transcribed Document [facility] [place] [facility] [place] [address] ProviderEryn MD [address] [place] [address] Social History Tobacco Use Types Packs/Day Years [...] Legal Guardian : Daughter, Spouse 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 Support Person/Pt Rep Name : Ashli vázquez Contact Password : Peter Support Person/Pt Rep Contact Information : Want Family/Rep/Phys Notified of Admit : No Emergency Contact #1 : Ashli Vázquez Emergency Contact #1 Emergency Contact #1 Relationship : Emergency Contact #2 : Raysa Escobar Emergency Contact #2 Emergency Contact #2 Relationship : daughter Information Obtained From : Patient Primary Language : Citizen [place] Preferred Communication Mode : Verbal Communication Barrier [...] Scale Risk Level : 25-45 Medium Risk [place] Fall Interventions : Adequate lighting, Bed in [...] 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 Alcohol Use Frequency Rarely. (Last Updated: 03/24/2018 13:52:20 EDT by HERMAN LARSEN RN) Substance Abuse: Drug Use Hx: No. Use in Last 12 Months: No. (Last Updated: 03/24/2018 13:52:32 EDT by HERMAN LARSEN RN) Height and Weight, Clinical Dosing Height Source : Measured Height Entry Format : [place] Height, Feet : 0 ft(Converted to: 0 cm, 0 Inch) Height, Inches : 72 Inch(Converted to: 6 ft 0 Inch, 182.88 cm) Clinical Height : 182.88 cm Weight Source : Standing scale Weight Entry Format : [place] Clinical Dosing Weight : 80.63 kg Weight, Pounds : 177 lb Weight, Ounces : 6 oz Body Surface Area (BSA) : 2.03 m2 Body Mass Index : 24.1 kg/m2 (HI) [place] Body Weight : 77 kg Ed Sosa [...] on filedocumented in this encounter Care Teams Apprentice Relationship Specialty Start Date End Date Alfredo Aguiar MD [address] [place] [address] PCP - General Adolescent Medicine 10/16/22 10/19/22 Alfredo Aguiar MD [address] [place] [address] PCP - General Adolescent Medicine 10/20/22 documented as of this encounter
--- OUTSIDE RECORDS SUMMARY | 2025-05-17 10:05 | XMS_ITS | Encounter Summary ---
Author Organization [employer] ([place], [place], [place], [place]) Address [address] [place] [address] Care Team Providers Care Plant Tour Guide Name Role Phone Alfredo Aguiar MD Primary Care Provider + [phone] Alfredo Aguiar MD Primary Care Provider + [phone] Encounter Details Date Type Department Care Team (Late st Contact Info) Description 08/17/2019 Transcribed Document [facility] [place] [facility] [place] [address] ProviderEryn MD [address] [place] [address] Social History Tobacco Use Types Packs/Day Years Used Date Smoking Tobacco: Never Assessed Sex and Gender Information Value Date Recorded Sex Assigned at Not on file Legal Sex Male 5:45 PM CDT Gender Identity Not on file Sexual Orientation Not on file documented as of this encounter Miscellaneous Notes * Cerner Conversion Note - Eryn Arcos MD - 08/17/2019 2:22 PM STORE SALES LEADER [facility] Main OR IntraOp Summary Primary Physician: LION DAVIS MD-ORT Finalized Date/Time: 08/18/19 11:58:04 Pt. Name: LORA JAIN JR/Sex: 1940 Male Med Rec #: [id number] Physician: LION DAVIS MD-ORT Financial #: [id number] Pt. Type: I Room/Bed: 4/1 Admit/Disch: 08/17/19 07:12:00 - Institution: [facility] IntraOp Case Attendance Entry 1 Entry 2 Entry 3 Case Attendee LION DAVIS BARNES, DEVON, COURTNEY-Ashanti Marrufo RN MD-ORT Role Performed Surgeon/Proceduralist, ELECTRIC CUTTER OPERATOR/Nurse Field Horticultural Specialty Grower Electronic Specialist, First First Time In 08/17/19 13:43:00 08/17/19 [...] BRADLEY, PA-ORElizabeth Role Performed Scrub, First Physician materials assistant ELECTRIC CUTTER OPERATOR/Nurse Field Horticultural Specialty Grower Time In 08/17/19 13:43:00 08/17/19 13:43:00 08/17/19 [...] PARRA CRNA Parker, Gwendolyn, Rn Role Performed ELECTRIC CUTTER OPERATOR/Nurse Field Horticultural Specialty Grower Electronic Specialist, First Time In 08/17/19 16:05:00 08/17/19 16:20:00 Time Out 08/17/19 17:03:00 08/17/19 17:03:00 Procedure Knee Total Joint Knee Total Joint Revision(Left) Revision(Left) Other Attendee RELIEF Superficial Wound Closed By: Last Modified By: Faina Fernandes Rn Parker, Gwendolyn, Rn 08/17/19 17:08:20 08/17/19 17:08:20 [facility] IntraOp Case Attendance Audit 08/17/19 17:08:20 Engineering Department Chair: AMOSNARL Modifier: JACK 1 <+> Time Out [...] Procedure Knee Total Joint Revision(Left) 08/17/19 16:22:08 Engineering Department Chair: MAYNARL Modifier: MAYNARL 3 <+> Time Out 3 <*> Procedure Knee Total Joint Revision(Left) 08/17/19 16:20:54 Engineering Department Chair: MAYNARL Modifier: MAYNARL <+> 8 Case Attendee <+> 8 Role Performed <+> 8 Time In <+> 8 Procedure <+> 8 Other Attendee 08/17/19 16:07:45 Engineering Department Chair: MAYNARL Modifier: MAYNARL 6 <+> Time Out 6 <*> Procedure Knee Total Joint Revision(Left) <+> 7 Case Attendee <+> 7 Role Performed <+> 7 Time In <+> 7 Procedure 08/17/19 15:08:45 Engineering Department Chair: MAYNARL Modifier: MAYNARL 1 <*> Procedure Knee [...] <+> 6 Time In <+> 6 Procedure [facility] IntraOp Case Times Entry 1 Patient In Room Time 08/17/19 13:43:00 Out Room Time 08/17/19 17:03:00 Anesthesia Start Time 08/17/19 13:43:00 Stop Time 08/17/19 17:03:00 Surgery / Procedure Times Start Time 08/17/19 14:22:00 Stop Time 08/17/19 16:49:00 Last Modified By: Faina Fernandes Rn 08/17/19 17:08:16 [facility] IntraOp Case Times Audit 08/17/19 17:08:16 Engineering Department Chair: MADISON Modifier: MEETARKER <+> 1 Out Room Time <+> 1 Stop Time <+> 1 Stop Time 08/17/19 14:25:02 Engineering Department Chair: MADISON Modifier: MADISON <+> 1 Start Time [facility] IntraOp Cautery Entry 1 ESU Identification Cautery Type Monopolar ESU ID Number [id number] ID Type Hospital Number Cautery Settings Cut Setting 50 Coag Setting 50 ESU Grounding Pad Ground Pad Type Adult Grounding Pad Site Right thigh Grounding Pad Ashanti Bolaños RN Applied By Grounding Pad Site Warm, dry and intact Skin Condition Before Cautery Grounding Pad Site Unchanged Skin Condition After Cautery Last Modified By: Ashanti Bolaños RN 08/17/19 13:51:01 [facility] IntraOp Communication Entry 1 Entry 2 Entry 3 Communication To Family/Significant other Family/Significant other Family/Significant other Comment START UPDATE CLOSING Communication By Ashanti Bolaños RN Maynard, Leanne, Ashanti Kuo RN Date and Time 08/17/19 14:25:00 08/17/19 15:29:00 08/17/19 16:13:00 Last Modified By: Ashanti Bolaños RN Maynard, Leanne, RN Maynard, Leanne, RN 08/17/19 14:25:11 08/17/19 15:29:58 08/17/19 16:13:07 [facility] IntraOp Communication Audit 08/17/19 16:13:07 Engineering Department Chair: MADISON Modifier: MADISON <+> 3 Communication By <+> 3 Date and Time <+> 3 Communication To <+> 3 Comment 08/17/19 15:29:58 Engineering Department Chair: MADISON Modifier: MADISON <+> 2 Communication By <+> 2 Date and Time <+> 2 Communication To <+> 2 Comment [facility] IntraOp Counts Verification Entry 1 Procedure Knee Total Joint Revision(Left) Count Info Count Type Sponge, Sharps, Miscellaneous Counts Verification Baseline/pre-procedure Sequence Count Results Not Applicable Counts Performed By Count Performed By Mitra Frazier ST (Scrub) Count Performed By Ashanti Bolaños RN (RN) Last Modified By: Ashanti Bolaños RN 08/17/19 13:50:33 [facility] IntraOp Counts Final Entry 1 Procedure Knee Total Joint Revision(Left) Final Count Info Count Type Sponge, Sharps, Miscellaneous Counts Verification Skin Closure/end of Sequence procedure Count Results Correct, surgeon notified Counts Performed By Count Performed By Mitra Frazier ST (Scrub) Count Performed By Ashanti Bolaños RN (RN) Last Modified By: Ashanti Bolaños RN 08/17/19 16:20:42 [facility] IntraOp Cultures and Spec Summary Entry 1 Cultrures and Specimens Specimen Ordered: Yes Test(s) Routine/Path-Lab Requested/Final Disposition Last Modified By: Ashanti Bolaños RN 08/17/19 13:51:07 [facility] IntraOp Departure from OR Entry 1 Integumentary Assessment Integumentary WDL Assessment WDL Transfer/Handoff Transfer to PACU Phase I Handoff Method Bedside/Face to face, Phone call Post-op Transport Stretcher/Calrrosie Via Patient Transport BRAEDEN MEIER NA, Accompanied by NINOSKA OLUIE PA-ORElizabeth Last Modified By: Ashanti Bolaños RN 08/17/19 15:08:54 [facility] IntraOp Departure from OR Audit 08/17/19 15:08:54 Engineering Department Chair: MADISON Modifier: MADISON 1 <*> Patient Transport Accompanied by LISBETH BRYANT CRNA-ANS [facility] IntraOp Drains and Tubes Entry 1 Device Type Hemovac Size MEDIUM Drain/Tube Activity Inserted Device Location LEFT KNEE Tube Dressing Dry, Intact Condition Last Modified By: Ashanti Bolaños RN 08/17/19 16:21:16 [facility] IntraOp Dressing and Packing Entry 1 Type Dressing Location OPSITE Last Modified By: Ashanti Bolaños RN 08/17/19 14:27:31 [facility] IntraOp Fire Risk Assessment Entry 1 Fire [...] Modified By: Ashanti Bolaños RN 08/17/19 13:50:35 [facility] IntraOp Fire Risk Assessment Audit 08/17/19 13:50:35 Engineering Department Chair: MADISON Modifier: MAYNARL <+> 1 Fire Risk Assessment Verified By 08/17/19 13:49:49 Engineering Department Chair: MADISON Modifier: MAYNARL <+> 1 Surgical Site or Incision Above the Xyphoid <+> 1 Open O2 Source (Mask or Cannula) <+> 1 Available Ignition (ESU, Laser, Light Source) <+> 1 Fire Risk Assessment Score <+> 1 Fire Risk Assessment Complete <+> 1 Standard Fire Safety Precautions Followed [facility] IntraOp General Case Shirt Trimmer 1 Case Information OR OR 04 [facility] Case Level 1 Room Verified Yes Wound Class I - Clean Specialty SN Orthopedic ASA Class 3 Diagnosis Preop Diagnosis [id number] Postop Diagnosis SEE DOCTOR'S POST OP NOTES Last Modified By: Ashanti Bolaños RN 08/17/19 14:16:30 [facility] IntraOp General Case Data Audit 08/17/19 14:16:30 Engineering Department Chair: MADISON Modifier: MAYNARL <+> 1 Room Verified 08/17/19 14:16:05 Engineering Department Chair: MADISON Modifier: MAYNARL <+> 1 Preop Diagnosis <+> 1 Postop Diagnosis [facility] IntraOp Implant Log Entry 1 Entry 2 Entry 3 Type Implant (Synthetic) Implant (Synthetic) Implant (Synthetic) Implant Log Implant Type Other Bone Cement Hardware Tissue Implant Type Implant PUTY OSTEOBST BN VD CEMENT BONE SMPLX HV FEM DIST AUG SZ 6 Identification [id number] Description Implant Quantity 1 3 1 Implant Site LEFT KNEE LEFT KNEE LEFT KNEE Implant Identification Model Number Implant [id number] Identification Serial Number Implant [id number] Identification Lot Number Implant [employer] Hadley:Breana Blancoyker:Breana Identification Orthopaedics Orthopaedics Supervisor Blast Furnace Name: Implant [id number] Identification Catalog Number Implant Size Implant Has an Yes Yes Yes Expiration Date Implant Expiration 12/31/21 09/30/20 07/22/23 Date Wasted Radioactive Material Time Implanted Tissue Implant Continue for Tissue Implant Documentation Tissue Identification Number Graft Prep Per Supervisor Blast Furnace Instructions: Tissue Preparation Method: Reconstitution Solution: Reconstitution Solution Lot Number Reconstitution Solution Expiration Date: Thawing Solution Thawing Solution Lot Number Thawing Solution Expiration Date Preparation Materials, Other Preparation Materials, Other Lot Number Preparation Materials, Other Expiration Date Tissue Prepared/Processed By Supervisor Blast Furnace Paperwork Completed Implant Type Comment Last Modified By: Ashanti Bolaños RN Maynard, Leanne, RN Maynard, Leanne, RN 08/17/19 14:29:54 08/17/19 16:03:49 08/17/19 16:09:54 Entry 4 Entry 5 Entry 6 Type Implant (Synthetic) Implant (Synthetic) Implant (Synthetic) Implant Log Implant Type Hardware Hardware Hardware Tissue Implant Type Implant STEM FLUTED TRIATH FEM POST AUG TRI SZ 6 COMP FEM TRI TS SZ 6 Identification [id number] [id number] Description Implant Quantity 1 1 1 Implant Site LEFT KNEE LEFT KNEE LEFT KNEE Implant Identification Model Number Implant Identification Serial Number Implant [id number] Identification Lot Number Implant Hadley:Breana Hadley:Hadley Breana:Breana Identification Orthopaedics Orthopaedics Orthopaedics Supervisor Blast Furnace Name: Implant [id number] Identification Catalog Number Implant Size Implant Has an Yes Yes Yes Expiration Date Implant Expiration 06/16/23 09/12/23 08/04/23 Date Wasted Radioactive Material Time Implanted Tissue Implant Continue for Tissue Implant Documentation Tissue Identification Number Graft Prep Per Supervisor Blast Furnace Instructions: Tissue Preparation Method: Reconstitution Solution: Reconstitution Solution Lot Number Reconstitution Solution Expiration Date: Thawing Solution Thawing Solution Lot Number Thawing Solution Expiration Date Preparation Materials, Other Preparation Materials, Other Lot Number Preparation Materials, Other Expiration Date Tissue Prepared/Processed By Supervisor Blast Furnace Paperwork Completed Implant Type Comment Last Modified By: Ashanti Bolaños RN Maynard, Leanne, RN Maynard, Leanne, RN 08/17/19 15:59:02 08/17/19 16:03:49 08/17/19 16:03:49 Entry 7 Entry 8 Entry 9 Type Implant (Synthetic) Implant (Synthetic) Implant (Synthetic) Implant Log Implant Type Hardware Hardware Hardware Tissue Implant Type Implant STEM FLUTED 16MM 100MM BASEPLT TRIATHLON TS EXT STEM [id number] Identification [id number] Description Implant Quantity 1 1 1 Implant Site LEFT KNEE LEFT KNEE LEFT KNEE Implant Identification Model Number Implant Identification Serial Number Implant [id number] Identification Lot Number Implant Breana:Breana Hadley:Breana Hadley:Hadley Identification Orthopaedics Orthopaedics Orthopaedics Supervisor Blast Furnace Name: Implant [id number] Identification Catalog Number Implant Size Implant Has an Yes Yes Yes Expiration Date Implant Expiration 08/11/23 04/09/24 05/10/24 Date Wasted Radioactive Material Time Implanted Tissue Implant Continue for Tissue Implant Documentation Tissue Identification Number Graft Prep Per Supervisor Blast Furnace Instructions: Tissue Preparation Method: Reconstitution Solution: Reconstitution Solution Lot Number Reconstitution Solution Expiration Date: Thawing Solution Thawing Solution Lot Number Thawing Solution Expiration Date Preparation Materials, Other Preparation Materials, Other Lot Number Preparation Materials, Other Expiration Date Tissue Prepared/Processed By Supervisor Blast Furnace Paperwork Completed Implant Type Comment Last Modified By: Ashanti Bolaños RN Maynard, Leanne, RN Maynard, Leanne, RN 08/17/19 16:03:49 08/17/19 16:03:49 08/17/19 16:03:49 Entry 10 Entry 11 Type Implant (Synthetic) Implant (Synthetic) Implant Log Implant Type Hardware Hardware Tissue Implant Type Implant TIB SYM CON [id number] INSRT TIB PS X3 ??#5 Identification [id number] Description Implant Quantity 1 1 Implant Site LEFT KNEE LEFT KNEE Implant Identification Model Number Implant Identification Serial Number Implant [id number] Identification Lot Number Implant Breana:Hadley Hadley:Hadley Identification Orthopaedics Orthopaedics Supervisor Blast Furnace Name: Implant [id number] Identification Catalog Number Implant Size Implant Has an Yes Yes Expiration Date Implant Expiration 06/06/24 10/04/22 Date Wasted Radioactive Material Time Implanted Tissue Implant Continue for Tissue Implant Documentation Tissue Identification Number Graft Prep Per Supervisor Blast Furnace Instructions: Tissue Preparation Method: Reconstitution Solution: Reconstitution Solution Lot Number Reconstitution Solution Expiration Date: Thawing Solution Thawing Solution Lot Number Thawing Solution Expiration Date Preparation Materials, Other Preparation Materials, Other Lot Number Preparation Materials, Other Expiration Date Tissue Prepared/Processed By Supervisor Blast Furnace Paperwork Completed Implant Type Comment Last Modified By: Ashanti Bolaños RN Maynard, Leanne, RN 08/17/19 16:03:49 08/17/19 16:03:49 [facility] IntraOp Implant Log Audit 08/17/19 16:09:54 Engineering Department Chair: MADISON Modifier: MADISON <+> 11 Implant Identification Description <+> 11 Implant Identification Lot Number <+> 11 Implant Identification Supervisor Blast Furnace Name: <+> 11 Implant Expiration Date <+> 11 Implant Site <+> 11 Implant Quantity <+> 11 Implant Identification Catalog Number <+> 11 Implant Type <+> 11 Implant Has an Expiration Date <+> 11 Type 08/17/19 16:03:49 Engineering Department Chair: MADISON Modifier: MADISON <+> 3 Implant Identification Description <+> 3 Implant Identification Lot Number <+> 3 Implant Identification Supervisor Blast Furnace Name: <+> 3 Implant Expiration Date <+> 3 Implant Site <+> 3 Implant Quantity <+> 3 Implant Identification Catalog Number <+> 3 Implant Type <+> 3 Implant Has an Expiration Date <+> 3 Type <+> 4 Implant Identification Description <+> 4 Implant Identification Lot Number <+> 4 Implant Identification Supervisor Blast Furnace Name: <+> 4 Implant Expiration Date <+> 4 Implant Site <+> 4 Implant Quantity <+> 4 Implant Identification Catalog Number <+> 4 Implant Type <+> 4 Implant Has an Expiration Date <+> 4 Type <+> 5 Implant Identification Description <+> 5 Implant Identification Lot Number <+> 5 Implant Identification Supervisor Blast Furnace Name: <+> 5 Implant Expiration Date <+> 5 Implant Site <+> 5 Implant Quantity <+> 5 Implant Identification Catalog Number <+> 5 Implant Type <+> 5 Implant Has an Expiration Date <+> 5 Type <+> 6 Implant Identification Description <+> 6 Implant Identification Lot Number <+> 6 Implant Identification Supervisor Blast Furnace Name: <+> 6 Implant Expiration Date <+> 6 Implant Site <+> 6 Implant Quantity <+> 6 Implant Identification Catalog Number <+> 6 Implant Type <+> 6 Implant Has an Expiration Date <+> 6 Type <+> 7 Implant Identification Description <+> 7 Implant Identification Lot Number <+> 7 Implant Identification Supervisor Blast Furnace Name: <+> 7 Implant Expiration Date <+> 7 Implant Site <+> 7 Implant Quantity <+> 7 Implant Identification Catalog Number <+> 7 Implant Type <+> 7 Implant Has an Expiration Date <+> 7 Type <+> 8 Implant Identification Description <+> 8 Implant Identification Lot Number <+> 8 Implant Identification Supervisor Blast Furnace Name: <+> 8 Implant Expiration Date <+> 8 Implant Site <+> 8 Implant Quantity <+> 8 Implant Identification Catalog Number <+> 8 Implant Type <+> 8 Implant Has an Expiration Date <+> 8 Type <+> 9 Implant Identification Description <+> 9 Implant Identification Lot Number <+> 9 Implant Identification Supervisor Blast Furnace Name: <+> 9 Implant Expiration Date <+> 9 Implant Site <+> 9 Implant Quantity <+> 9 Implant Identification Catalog Number <+> 9 Implant Type <+> 9 Implant Has an Expiration Date <+> 9 Type <+> 10 Implant Identification Description <+> 10 Implant Identification Lot Number <+> 10 Implant Identification Supervisor Blast Furnace Name: <+> 10 Implant Expiration Date <+> 10 Implant Site <+> 10 Implant Quantity <+> 10 Implant Identification Catalog Number <+> 10 Implant Type <+> 10 Implant Has an Expiration Date <+> 10 Type 08/17/19 15:59:02 Engineering Department Chair: MADISON Modifier: MADISON 2 <*> Implant Identification Description CEMENT BONE [id number] HV [id number] <*> Implant Quantity 2 [facility] IntraOp Intraoperative Assessment Entry 1 Handoff Method [...] Modified By: Ashanti Bolaños RN 08/17/19 13:51:19 [facility] IntraOp Intraoperative Equipment Entry 1 Type Equipment Equipment Equipment Dorinda Suction System ID Number [id number] Setting HIGH Intraop Monitoring Electrocardiogram Five lead placement (ECG) Electrode Placement Blood Pressure Non-Invasive BP Device Source Blood Pressure Arm, right upper Location Pulse Oximeter Hand, left Probe Site Antiembolic Devices Antiembolic Devices Sequential compression device, knee high Antiembolic Device Right Location Antiembolic Device [id number] ID Number Antiembolic Device HIGH Setting Scopes Photo/Video Documentation Last Modified By: Ashanti Bolaños RN 08/17/19 13:51:51 [facility] IntraOp Medication Admin Entry 1 Entry 2 Entry 3 Medication/Irrigant NEEL IRR NACL 0.9PCT NEEL IRR NACL 0.9PCT Bacitracin 50,00units 2000ML [id number] powder vial Combo Med List 1 - [...] Modified By: Ashanti Bolaños RN 08/17/19 15:12:32 [facility] IntraOp Patient Positioning Entry 1 Procedure Knee [...] Modified By: Ashanti Bolaños RN 08/17/19 14:15:40 [facility] IntraOp Sign In Entry 1 Patient, Site, [...] Modified By: Ashanti Bolaños RN 08/17/19 13:52:08 [facility] IntraOp Sign Out Entry 1 RN Confirmation [...] Modified By: Faina Fernandes Rn 08/17/19 17:09:13 [facility] IntraOp Skin Prep Entry 1 Procedure Knee Total Joint Revision(Left) Prescribed N/A Pre-Surgical Prep Completed Prep Area LEFT CALF TO TOES CIRCUMFRENTIALLY Intraop Prep Integumentary WDL Assessment WDL Prep Agents Chlorhexidine gluconate/alcohol, Chloraprep, DuraPrep Prep by Ashanti Bolaños RN Hair Removal Methods No hair removal performed Last Modified By: Ashanti Bolaños RN 08/17/19 14:16:55 [facility] IntraOp Surgical Procedures Entry 1 Procedure Knee Total Joint Revision Modifiers Left Additional (LT TOTAL KNEE Procedure ARTHROPLASTY REVISION Description REPLANT) Primary Procedure Yes Primary Surgeon LION DAVIS MD-ORT Start 08/17/19 14:22:00 Stop 08/17/19 16:49:00 Anesthesia Type General Specialty SN Orthopedic Wound Class I - Clean Last Modified By: Faina Fernandes Rn 08/17/19 17:08:24 [facility] IntraOp Surgical Procedures Audit 08/17/19 17:08:24 Engineering Department Chair: MADISON Modifier: [email or web address] <+> 1 Stop 08/17/19 15:59:15 Engineering Department Chair: MADISON Modifier: MAYNARL <+> 1 Start [facility] IntraOp Temp Regulation Devices Entry 1 Temp Regulation Temperature Forced Air Warming Regulation Device device, Warm blankets Temperature 04404 Regulation Device Serial/Unit Number Temperature Upper body Regulation Site Temperature Device 43 DEGREES CELCIUS Setting Temperature Ashanti Bolaños RN Regulation Device Applied by Last Modified By: Ashanti Bolaños RN 08/17/19 14:16:26 [facility] IntraOP Time Out Entry 1 Procedure to [...] Modified By: Ashanti Bolaños RN 08/17/19 14:22:41 [facility] IntraOp Tourniquet Entry 1 Type Pneumatic Serial/Unit Number [id number] Setting 300 mmHg Pheumatic Yes Tourniquet Checked Per Protocol Placement Calf, left Skin Protection - Yes Padded Under Cuff Applied By LION DAVIS MD-ORT Removed By NINOSKA LOUIE PA-ORT Times Start Time 08/17/19 14:22:00 Stop Time 08/17/19 16:31:00 Last Modified By: Faina Fernandes Rn 08/17/19 16:49:15 [facility] IntraOp Tourniquet Audit 08/17/19 16:49:15 Engineering Department Chair: MADISON Modifier: MEETARKER <+> 1 Stop Time Case Comments <None> Finalized By: MALVIN KENT Document Signatures Signed By: Faina Fernandes Rn 08/17/19 17:09 MALVIN KENT 08/18/19 11:58 Unfinalized History Date/Time Username Reason for Unfinalizing Freetext Reason for Unfinalizing 08/18/19 11:50 [email or web address] Correct Billing Electronically signed by [facility] Conversion [employer] Metalsmith Cerner at 11/18/2022 9:34 AM CDT documented in this encounter Plan of Treatment Not on file documented as of this encounter Visit Diagnoses Not on filedocumented in this encounter Care Teams Plant Tour Guide Relationship Specialty Start Date End Date Alfredo Aguiar MD [address] [place] [address] PCP - General Adolescent Medicine 10/16/22 10/19/22 Alfredo Aguiar MD [address] [place] [address] PCP - General Adolescent Medicine 10/20/22 documented as of this encounter
--- OUTSIDE RECORDS SUMMARY | 2025-05-17 10:05 | XMS_ITS | Encounter Summary ---
Author Organization [employer] ([place], [place], [place], [place]) Address [address] [place] [address] Care Team Providers Care Naval Surface Fire Support Planner Name Role Phone Alfredo Aguiar MD Primary Care Provider + [phone] Alfredo Aguiar MD Primary Care Provider + [phone] Encounter Details Date Type Department Care Team (Late st Contact Info) Description 08/17/2019 Transcribed Document [facility] [address] [place] [address] Guillermina Allison MD [facility] [place] [address] Social History Tobacco Use Types Packs/Day Years [...] 08/17/2019 ORTHOPEDIC SURGERY OPERATIVE REPORT SURGEON: Guillermina Allsion MD PREOPERATIVE DIAGNOSIS: Infected left total knee arthroplasty, 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 PROCEDURES PERFORMED: 1. Revision, left total knee arthroplasty to include entire femoral and tibial components. 2. Placement of absorbable antibiotic cement beads, left knee. PATIENT CARE ASSISTANT: Chris Ag. ANESTHESIA: General endotracheal anesthesia with [...] correct at the end of the case. /[id number] Guillermina Allison MD TK/AQ / TK / MODL /[id number] documented in this encounter Plan of Treatment Not on file documented as of this encounter Visit Diagnoses Not on filedocumented in this encounter Care Teams [employer] Fire Support Planner Relationship Specialty Start Date End Date Alfredo Aguiar MD [address] [place] [address] PCP - General Adolescent Medicine 10/16/22 10/19/22 Alfredo Aguiar MD [address] [place] [address] PCP - General Adolescent Medicine 10/20/22 documented as of this encounter
--- OUTSIDE RECORDS SUMMARY | 2025-05-17 10:05 | XMS_ITS | Referral Summary ---
Author Organization [employer] ([place], [place], [place], [place]) Address [address] [place] [address] Care Team Providers Care Management Liaison Name Role Phone Alfredo Aguiar MD Primary Care Provider [phone] Allergies No known active allergies Medications lisinopriL [...] Date Devin rded Speak language other than Singaporean at home Not on file 08/21/2023 Want [...] on file Insurance [place] [address] [place] [address] FOR LIFE Advance Directives For more information, please contact: [phone] * Full Code (Latest Code Status on File) Date Activated Date Inactivated Comments 10/15/2022 10:17 PM 10/16/2022 7:32 PM Care Teams Management Liaison Relationship Specialty Start Date End Date Alfredo Aguiar MD [address] [place] [address] PCP - General Adolescent Medicine 10/20/22
--- OUTSIDE RECORDS SUMMARY | 2025-05-17 10:05 | XMS_ITS | Encounter Summary ---
Author Organization [employer] ([place], [place], [place], [place]) Address [address] [place] [address] Care Team Providers Care Aircraft Systems Repairer Name Role Phone Alfredo Aguiar MD Primary Care Provider + [phone] Alfredo Aguiar MD Primary Care Provider + [phone] Encounter Details Date Type Department Care Team (Late st Contact Info) Description 08/17/2019 Transcribed Document [facility] [place] [facility] [place] [address] ProviderEryn MD [address] [place] [address] Social History Tobacco Use Types Packs/Day Years Used Date Smoking Tobacco: Never Assessed Sex and Gender Information Value Date Recorded Sex Assigned at Not on file Legal Sex Male 5:45 PM CDT Gender Identity Not on file Sexual Orientation Not on file documented as of this encounter Miscellaneous Notes * Cerner Conversion Note - Eryn Arcos MD - 08/17/2019 1:00 PM [employer] [facility] Main OR Preop Summary Primary Physician: LION DAVIS MD-ORT Finalized Date/Time: 08/17/19 13:43:34 Pt. Name: LORA JAIN JR/Sex: 1940 Male Med Rec #: [id number] Physician: LION DAVIS MD-ORT Financial #: [id number] Pt. Type: I Room/Bed: ASA/3 Admit/Disch: 08/17/19 07:12:00 - Institution: [facility] PreOp Case Times Entry 1 In Preop 08/17/19 09:16:00 Ready for Holding n/a Room Patient Ready for 08/17/19 11:59:00 Surgery Patient Out of Preop 08/17/19 13:41:00 Patient Out of n/a Holding Room Last Modified By: CASIE BAE RN 08/17/19 13:43:32 [facility] PreOp Case Times Audit 08/17/19 13:43:32 Utility Tender Carding: JOSEC Modifier: BOWLINC <+> 1 Patient Out of Preop 08/17/19 12:00:07 Utility Tender Carding: LAUREEN Modifier: BOWLINC <+> 1 Patient Ready for Surgery Finalized By: CASIE BAE, RN Document Signatures Signed By: CASIE BAE RN 08/17/19 13:43 Electronically signed by Wellington [facility] Conversion Sap Treasury Consultant Cerner at 11/18/2022 9:41 AM CDT documented in this encounter Plan of Treatment Not on file documented as of this encounter Visit Diagnoses Not on filedocumented in this encounter Care Teams Aircraft Systems Repairer Relationship Specialty Start Date End Date Alfredo Aguiar MD [address] [place] [address] PCP - General Adolescent Medicine 10/16/22 10/19/22 Alfredo Aguiar MD [address] [place] [address] PCP - General Adolescent Medicine 10/20/22 documented as of this encounter
--- OUTSIDE RECORDS SUMMARY | 2025-05-17 10:05 | XMS_ITS | Encounter Summary ---
Author Organization [employer] ([place], [place], [place], [place]) Address [address] [place] [address] Care Team Providers Care Glass Mold Repairer Name Role Phone Alfredo Aguiar MD Primary Care Provider + [phone] Alfredo Aguiar MD Primary Care Provider + [phone] Encounter Details Date Type Department Care Team (Late st Contact Info) Description 05/20/2019 Transcribed Document [facility] [place] [address] [place] [address] ProviderEryn MD [address] [place] [address] Social History Tobacco Use Types Packs/Day Years Used Date Smoking Tobacco: Never Assessed Sex and Gender Information Value Date Recorded Sex Assigned at Not on file Legal Sex Male 5:45 PM CDT Gender Identity Not on file Sexual Orientation Not on file documented as of this encounter Miscellaneous Notes * Cerner Conversion Note - Eryn Arcos MD - 05/20/2019 2:15 PM CDT [facility] Main OR PACU Summary Primary Physician: LION DAVIS MD-ORT Finalized Date/Time: 05/20/19 19:06:07 Pt. Name: LORA JAIN JR/Sex: 1940 Male Med Rec #: [id number] Physician: LION DAVIS MD-ORT Financial #: [id number] Pt. Type: I Room/Bed: ASA/2 Admit/Disch: 05/20/19 06:54:00 - Institution: [facility] Main OR PACU I Case Times Entry 1 In PACU I 05/20/19 16:57:00 Ready for PACU 05/20/19 18:30:00 Discharge Discharge from PACU 05/20/19 19:03:00 I Last Modified By: Betty Vaz RN 05/20/19 19:04:04 [facility] Main OR PACU Acuity Entry 1 Start Time 05/20/19 18:30:00 Stop Time 05/20/19 19:03:00 Acuity Level [facility] PACU Acuity I Last Modified By: Betty Vaz RN 05/20/19 19:06:05 Finalized By: Betty Vaz RN Document Signatures Signed By: Betty Vaz RN 05/20/19 19:06 Electronically signed by Wellington [facility] Conversion Ultrasound Sonographer Cerner at 11/18/2022 9:13 AM CDT documented in this encounter Plan of Treatment Not on file documented as of this encounter Visit Diagnoses Not on filedocumented in this encounter Care Teams Glass Mold Repairer Relationship Specialty Start Date End Date Alfredo Aguiar MD [address] [place] [address] PCP - General Adolescent Medicine 10/16/22 10/19/22 Alfredo Aguiar MD [address] [place] [address] PCP - General Adolescent Medicine 10/20/22 documented as of this encounter
--- OUTSIDE RECORDS SUMMARY | 2025-05-17 10:05 | XMS_ITS | Clinical Summary ---
Author Organization [facility] yste Address [address] [place] [address] Care Team Providers Care Short Haul Driver Name Role Phone Provider, No Known Primary [...] history exists Insurance MEDICARE A & B [facility] Care Teams Short Haul Driver Relationship Specialty Start Date End Date Provider, No Known [facility] [place] [address] PCP - General 06/23/19
--- OUTSIDE RECORDS SUMMARY | 2025-05-17 10:05 | XMS_ITS | Encounter Summary ---
Author Organization [employer] ([place], [place], [place], [place]) Address [address] [place] [address] Care Team Providers Care Building Cleaning Supervisor Name Role Phone Alfredo Aguiar MD Primary Care Provider + [phone] Alfredo Aguiar MD Primary Care Provider + [phone] Encounter Details Date Type Department Care Team (Late st Contact Info) Description 08/17/2019 Transcribed Document [facility] [place] [facility] [place] [address] ProviderEryn MD [address] [place] [address] Social History Tobacco Use Types Packs/Day Years Used Date Smoking Tobacco: Never Assessed Sex and Gender Information Value Date Recorded Sex Assigned at Not on file Legal Sex Male 5:45 PM CDT Gender Identity Not on file Sexual Orientation Not on file documented as of this encounter Miscellaneous Notes * Cerner Conversion Note - Eryn Arcos MD - 08/17/2019 11:25 AM FACTORY SUPERVISOR Procedural Documentation Entered On: 08/17/2019 11:48 EST [...] Anesthesiologist Procedure Case Attendee Role 2 : line service attendant Case Attendee 2 : EVAN Drake RN Procedure Case Attendee Role 3 : line service attendant Case Attendee 3 : CASIE BAE RN [...] 08/17/2019 11:54 EST Electronically signed by Wellington [facility] Conversion Microstrategy Reports Developer Cerner at 11/18/2022 9:27 AM CDT documented in this encounter Plan of Treatment Not on file documented as of this encounter Visit Diagnoses Not on filedocumented in this encounter Care Teams Building Cleaning Supervisor Relationship Specialty Start Date End Date Alfredo Aguiar MD [address] [place] [address] PCP - General Adolescent Medicine 10/16/22 10/19/22 Alfredo Aguiar MD [address] [place] [address] PCP - General Adolescent Medicine 10/20/22 documented as of this encounter
--- OUTSIDE RECORDS SUMMARY | 2025-05-17 10:05 | XMS_ITS | Encounter Summary ---
Author Organization [employer] ([place], [place], [place], [place]) Address [address] [place] [address] Care Team Providers Care Society Reporter Name Role Phone Alfredo Aguiar MD Primary Care Provider + [phone] Alfredo Aguiar MD Primary Care Provider + [phone] Encounter Details Date Type Department Care Team (Late st Contact Info) Description 05/18/2019 Transcribed Document [facility] [place] [facility] [place] [address] ProviderEryn MD [address] [place] [address] Social History Tobacco Use Types Packs/Day Years [...] Source : Measured Height Entry Format : [place] Height, Feet : 0 ft(Converted to: 0 cm, 0 Inch) Height, Inches : 72 Inch(Converted to: 6 ft 0 Inch, 182.88 cm) Clinical Height : 182.88 cm Weight Source : Standing scale Weight Entry Format : [place] Clinical Dosing Weight : 80.63 kg Weight, Pounds : 177 lb Weight, Ounces : 6 oz Body Surface Area (BSA) : 2.03 m2 Body Mass Index : 24.1 kg/m2 (HI) [place] Body Weight : 77 kg HERMAN LARSEN [...] 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 (Last Updated: 03/24/2018 13:52:01 EDT by [...] Info Preferred Name : Mele Support Person/Patient Insurance Actuary : Yes Support Person/Pt Rep Name : Ashli cordova Support Person/Pt Rep Contact Information : Want Family/Rep/Phys Notified of Admit : No Emergency Contact #1 : Ashli [place] Emergency Contact #1 Emergency Contact #1 Relationship : Emergency Contact #2 : Raysa Escobar Emergency Contact #2 Emergency Contact #2 Relationship : daughter Information Obtained From : Patient Primary Language : Latvian Preferred Communication Mode : Verbal Communication Barrier [...] 05/18/2019 10:58 EDT Electronically signed by [facility] Conversion Cuff Setter Overlock Cerner at 11/18/2022 9:32 AM CDT documented in this encounter Plan of Treatment Not on file documented as of this encounter Visit Diagnoses Not on filedocumented in this encounter Care Teams Society Reporter Relationship Specialty Start Date End Date Alfredo Aguiar MD [address] [place] [address] PCP - General Adolescent Medicine 10/16/22 10/19/22 Alfredo Aguiar MD [address] [place] [address] PCP - General Adolescent Medicine 10/20/22 documented as of this encounter
--- OUTSIDE RECORDS SUMMARY | 2025-05-17 10:05 | XMS_ITS | Encounter Summary ---
Author Organization [facility] Address [address] [place] [address] Care Team Providers Care Core Stripper Name Role Phone Alfredo Aguiar MD Primary Care Provider [phone] Reason for Visit * Reason Comments Med Refill Encounter Details Date Type Department Care Team (Late st Contact Info) Description 04/10/2025 Refill [facility] Endocrinology [address] [place] [address] Neena Fields, HOG PUSHER [address] [facility] [address] [place] [address] Social History Tobacco Use Types [...] Description 05/31/2025 9:20 AM EDT Office Visit [facility] Endocrinology [address] [place] [id number] Neena Fields, HOG PUSHER [address] [place] [address] documented as of this encounter Visit Diagnoses Not on filedocumented in this encounter Additional Health Concerns Assessment Noted Time A fall risk assessment has been complete d for the patient 02/01/2025 12:40 PM EDT A Body Mass Index follow-up plan has been documented for the patient 02/01/2025 1:21 PM EDT documented as of this encounter Care Teams Core Stripper Relationship Specialty Start Date End Date Alfredo Aguiar MD [address] [place] [address] PCP - General 12/14/20 documented as of this encounter
--- OUTSIDE RECORDS SUMMARY | 2025-05-17 10:05 | XMS_ITS | Encounter Summary ---
Author Organization [employer] ([place], [place], [place], [place]) Address [address] [place] [address] Care Team Providers Care Type Mapper Name Role Phone Alfredo Aguiar MD Primary Care Provider + [phone] Alfredo Aguiar MD Primary Care Provider + [phone] Encounter Details Date Type Department Care Team (Late st Contact Info) Description 08/17/2019 Transcribed Document [facility] [place] [facility] [address] ProviderEryn MD [address] [place] [address] Social History Tobacco Use Types Packs/Day Years Used Date Smoking Tobacco: Never Assessed Sex and Gender Information Value Date Recorded Sex Assigned at Not on file Legal Sex Male 5:45 PM CDT Gender Identity Not on file Sexual Orientation Not on file documented as of this encounter Miscellaneous Notes * Cerner Conversion Note - Eryn Arcos MD - 08/17/2019 2:22 PM MORTGAGE OPERATIONS MANAGER [facility] Main OR PACU Summary Primary Physician: LION DAVIS MD-ORT Finalized Date/Time: 08/17/19 19:17:06 Pt. Name: LORA JAIN JR/Sex: 1940 Male Med Rec #: [id number] Physician: LION ADVIS MD-ORT Financial #: [id number] Pt. Type: I Room/Bed: [facility]/ Admit/Disch: 08/17/19 07:12:00 - Institution: [facility] Main OR PACU I Case Times Entry 1 In PACU I 08/17/19 17:07:00 Ready for PACU 08/17/19 18:20:00 Discharge Discharge from PACU 08/17/19 18:20:00 I Last Modified By: THI STEPHENSON RN 08/17/19 19:16:56 [facility] Main OR PACU I Case Times Audit 08/17/19 19:16:56 Insurance Territory Manager: LU Modifier: LU 1 <*> In PACU I 08/17/19 19:16:00 1 <+> Ready for PACU Discharge 1 <+> Discharge from PACU I Finalized By: THI STEPHENSON, RN Document Signatures Signed By: THI STEPHENSON RN 08/17/19 19:17 Electronically signed by Wellington [facility] Conversion Composition Worker Cerner at 11/18/2022 9:33 AM CDT documented in this encounter Plan of Treatment Not on file documented as of this encounter Visit Diagnoses Not on filedocumented in this encounter Care Teams Type Mapper Relationship Specialty Start Date End Date Alfredo Aguiar MD [address] [place] [address] PCP - General Adolescent Medicine 10/16/22 10/19/22 Alfredo Aguiar MD [address] [place] [address] PCP - General Adolescent Medicine 10/20/22 documented as of this encounter
--- OUTSIDE RECORDS SUMMARY | 2025-05-17 10:05 | XMS_ITS | Encounter Summary ---
Author Organization [employer] ([place], [place], [place], [place]) Address [address] [place] [address] Care Team Providers Care Male Impersonator Name Role Phone Alfredo Aguiar MD Primary Care Provider + [phone] Alfredo Aguiar MD Primary Care Provider + [phone] Encounter Details Date Type Department Care Team (Late st Contact Info) Description 08/17/2019 Transcribed Document [facility] Radiology [address] [place] [address] Massimo Butterfield MD [address] [place] [address] Social History Tobacco Use Types Packs/Day [...] is an 78 yo male admitted to [facility] per Dr. 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
--- OUTSIDE RECORDS SUMMARY | 2025-05-17 10:05 | XMS_ITS | Encounter Summary ---
Author Organization [employer] ([place], [place], [place], [place]) Address [address] [place] [address] Care Team Providers Care Submarine Diver Name Role Phone Alfredo Aguiar MD Primary Care Provider + [phone] Alfredo Aguiar MD Primary Care Provider + [phone] Encounter Details Date Type Department Care Team (Late st Contact Info) Description 08/17/2019 Transcribed Document [facility] Family Medicine [facility] [place] [address] ProviderEryn MD [address] [place] [address] Social History Tobacco Use Types Packs/Day Years Used Date Smoking Tobacco: Never Assessed Sex and Gender Information Value Date Recorded Sex Assigned at Not on file Legal Sex Male 5:45 PM CDT Gender Identity Not on file Sexual Orientation Not on file documented as of this encounter Miscellaneous Notes * Cerner Conversion Note - Historical ProviderMD - 08/17/2019 11:49 AM SEO STRATEGIST Event Note Entered On: 08/17/2019 11:50 EST [...] on filedocumented in this encounter Care Teams Submarine Diver Relationship Specialty Start Date End Date Alfredo Aguiar MD [address] [place] [address] PCP - General Adolescent Medicine 10/16/22 10/19/22 Alfredo Aguiar MD [address] [place] [address] PCP - General Adolescent Medicine 10/20/22 documented as of this encounter
--- OUTSIDE RECORDS SUMMARY | 2025-05-17 10:05 | XMS_ITS | Encounter Summary ---
Author Organization [employer] ([place], [place], [place], [place]) Address [address] [place] [address] Care Team Providers Care Spd Manager Name Role Phone Alfredo Aguiar MD Primary Care Provider + [phone] Alfredo Aguiar MD Primary Care Provider + [phone] Encounter Details Date Type Department Care Team (Late st Contact Info) Description 05/20/2019 Transcribed Document [facility] [place] [facility] [place] [address] ProviderEryn MD [address] [place] [address] Social History Tobacco Use Types Packs/Day Years [...] Anesthesiologist Procedure Case Attendee Role 2 : sole blacker Case Attendee 2 : EVAN Drake RN Procedure Case Attendee Role 3 : sole blacker Case Attendee 3 : Dalia Bernstein RN [...] 05/20/2019 11:28 EDT Electronically signed by Wellington [facility] Conversion Groover And Striper Operator Cerner at 11/18/2022 9:25 AM CDT documented in this encounter Plan of Treatment Not on file documented as of this encounter Visit Diagnoses Not on filedocumented in this encounter Care Teams Spd Manager Relationship Specialty Start Date End Date Alfredo Aguiar MD [address] [place] [address] PCP - General Adolescent Medicine 10/16/22 10/19/22 Alfredo Aguiar MD [address] [place] [address] PCP - General Adolescent Medicine 10/20/22 documented as of this encounter
--- OUTSIDE RECORDS SUMMARY | 2025-05-17 10:06 | XMS_ITS | Encounter Summary ---
Author Organization [employer] ([place], [place], [place], [place]) Address [address] [place] [address] Care Team Providers Care Supervisor Cell Room Name Role Phone Alfredo Aguiar MD Primary Care Provider + [phone] Alfredo Aguiar MD Primary Care Provider + [phone] Encounter Details Date Type Department Care Team (Late st Contact Info) Description 05/21/2019 Transcribed Document [facility] [place] [address] [place] [address] ProviderEryn MD [address] [place] [address] Social History Tobacco Use Types Packs/Day Years [...] Oral, Daily cefTRIAXone 2 Gram, IV Piggyback, [id number] docusate sodium 100 mg cap 100 mg [...] % LOW Lymph # 0.36 x10(3)/uL LOW [place] % 8.3 % [place] # 0.79 K/uL Eos % 0.0 % [...] -Stress ulcer prophylaxis. Electronically signed by Wellington, [facility] Conversion Residential Treatment Specialist Cerner at 11/18/2022 9:14 AM CDT documented in this encounter Plan of Treatment Not on file documented as of this encounter Visit Diagnoses Not on filedocumented in this encounter Care Teams Supervisor Cell Room Relationship Specialty Start Date End Date Alfredo Aguiar MD [address] [place] [address] PCP - General Adolescent Medicine 10/16/22 10/19/22 Alfredo Aguiar MD [address] [place] [address] PCP - General Adolescent Medicine 10/20/22 documented as of this encounter
--- OUTSIDE RECORDS SUMMARY | 2025-05-17 10:06 | XMS_ITS | Encounter Summary ---
Author Organization [employer] ([place], [place], [place], [place]) Address [address] [place] [address] Care Team Providers Care Partner Manager Name Role Phone Alfredo Aguiar MD Primary Care Provider + [phone] Alfredo Aguiar MD Primary Care Provider + [phone] Encounter Details Date Type Department Care Team (Late st Contact Info) Description 08/18/2019 Transcribed Document [facility] [place] [facility] [place] [address] ProviderEryn MD [address] [place] [address] Social History Tobacco Use Types Packs/Day Years Used Date Smoking Tobacco: Never Assessed Sex and Gender Information Value Date Recorded Sex Assigned at Not on file Legal Sex Male 5:45 PM CDT Gender Identity Not on file Sexual Orientation Not on file documented as of this encounter Miscellaneous Notes * Cerner Conversion Note - Eryn ProviderMD - 08/18/2019 2:18 PM LOCK ASSEMBLER Initial Discharge Planning Entered On: 08/18/2019 14:25 EST Performed On: 08/18/2019 14:18 EST by JUANY HERNANDEZ RN-Lawnmower Repair Mechanic Initial Assessment I Previously Documented Living Environment : No qualifying data available. Living Situation : Personal prison Patient Lives With : Spouse, Other: caregivers Is the Patient a Caregiver at Home? : No Emergency Contact #1 : Raysa Escobar Emergency Contact #1 Emergency Contact #1 Relationship : daughter Emergency Contact #2 : Jessa Vázquez Emergency Contact #2 Emergency Contact #2 Relationship : daughter JUANY HERNANDEZ RN-Lawnmower Repair Mechanic - 08/18/2019 14:18 EST Initial Assessment II Sensory and Motor Deficits : None Current Home Treatments and Equipment : Walker JUANY HERNANDEZ RN-Lawnmower Repair Mechanic - 08/18/2019 14:18 EST Discharge Needs I Anticipated Discharge Date : 08/20/2019 EST Anticipated Discharge To, CM : [facility]PC facility Current Home Treatment/Equipment : Current Home Treatment/Equipment No qualifying data available. Documentation Status Complete : Yes JUANY HERNANDEZ RN-Lawnmower Repair Mechanic - 08/18/2019 14:18 EST Discharge Needs II Professional Skilled Services : Professional Skilled Services No qualifying data available. 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 Pt's original surgery was 04/2018 and pt went home with HH. Pt was admitted again for infected knee in 05/2019 and was [facility]. Since then, pt has been staying in a PC bed at [facility] with [facility] for HH. Met with pt and daughters at bedside this am to discuss DCP. They request rehab at [facility]. Referral sent via [facility] and spoke to liabraydon Epps. She can offer pt a bed. Pt wants to use [facility] for after rehab. Informed liabraydon Rosa, she will follow pt at facility. Family will transport. CM will follow. JUANY HERNANDEZ RN-Lawnmower Repair Mechanic - 08/18/2019 14:18 EST documented in this encounter Plan of Treatment Not on file documented as of this encounter Visit Diagnoses Not on filedocumented in this encounter Care Teams Partner Manager Relationship Specialty Start Date End Date Alfredo Aguiar MD [address] [place] [address] PCP - General Adolescent Medicine 10/16/22 10/19/22 Alfredo Aguiar MD [address] [place] [address] PCP - General Adolescent Medicine 10/20/22 documented as of this encounter
--- OUTSIDE RECORDS SUMMARY | 2025-05-17 10:06 | XMS_ITS | Encounter Summary ---
Author Organization [employer] ([place], [place], [place], [place]) Address [address] [place] [address] Care Team Providers Care Caul Dresser Name Role Phone Alfredo Aguiar MD Primary Care Provider + [phone] Alfredo Aguiar MD Primary Care Provider + [phone] Encounter Details Date Type Department Care Team (Late st Contact Info) Description 05/21/2019 Transcribed Document [facility] [place] [facility] [place] [address] ProviderEryn MD [address] [place] [address] Social History Tobacco Use Types Packs/Day Years [...] Insurance 1 Health Plan: MEDICARE Policy Number: [id number] Authorization Number: Insurance 2 Health Plan: FOR LIFE Policy Number: [id number] Authorization Number: Insurance Primary Name : MEDICARE Policy Number: [id number] Historical Authorization Comments-Primary : No Authorization Comments Found KAUR VAUGHAN RN - 05/21/2019 10:06 EDT documented in this encounter Plan of Treatment Not on file documented as of this encounter Visit Diagnoses Not on filedocumented in this encounter Care Teams Caul Dresser Relationship Specialty Start Date End Date Alfredo Aguiar MD [address] [place] [address] PCP - General Adolescent Medicine 10/16/22 10/19/22 Alfredo Aguiar MD [address] [place] [address] PCP - General Adolescent Medicine 10/20/22 documented as of this encounter
--- OUTSIDE RECORDS SUMMARY | 2025-05-17 10:06 | XMS_ITS | Encounter Summary ---
Author Organization [employer] ([place], [place], [place], [place]) Address [address] [place] [address] Care Team Providers Care Siding Applicator Name Role Phone Alfredo Aguiar MD Primary Care Provider + [phone] Alfredo Aguiar MD Primary Care Provider + [phone] Encounter Details Date Type Department Care Team (Late st Contact Info) Description 08/18/2019 Transcribed Document [facility] [place] [facility] [place] [address] ProviderEryn MD [address] [place] [address] Social History Tobacco Use Types Packs/Day Years Used Date Smoking Tobacco: Never Assessed Sex and Gender Information Value Date Recorded Sex Assigned at Not on file Legal Sex Male 5:45 PM CDT Gender Identity Not on file Sexual Orientation Not on file documented as of this encounter Miscellaneous Notes * Cerner Conversion Note - Eryn Arcos MD - 08/18/2019 8:09 AM BIOMASS POWER PLANT SUPERINTENDENT Patient: LORA JAIN JR Age: 78 Years Sex: Male : 1940 Assessment/Plan Likely discharge tomorrow. Retained Hemovac and incisional VAC. Normal PT protocol otherwise. ID has recommended Rocephin in-house. Waiting on recommendation for type and duration of therapy after discharge. [facility] due to no [...] been weightbearing since May 2019. They request shelter facility. Vital Signs T: 36.4 ??C TMIN: [...] # 0.24 x10(3)/uL (Low) 08/18/2019 02:40 EST [place] % 9.6 % (High) 08/18/2019 02:40 EST [place] # 0.75 K/uL 08/18/2019 02:40 EST [place] [...] 08/17/2019 11:19 EST Electronically signed by Interface, [facility] Conversion Pest Control Operator Cerner at 11/18/2022 9:37 AM CDT documented in this encounter Plan of Treatment Not on file documented as of this encounter Visit Diagnoses Not on filedocumented in this encounter Care Teams Siding Applicator Relationship Specialty Start Date End Date Alfredo Aguiar MD [address] [place] [address] PCP - General Adolescent Medicine 10/16/22 10/19/22 Alfredo Aguiar MD [address] [place] [address] PCP - General Adolescent Medicine 10/20/22 documented as of this encounter
--- OUTSIDE RECORDS SUMMARY | 2025-05-17 10:06 | XMS_ITS | Encounter Summary ---
Author Organization [employer] ([place], [place], [place], [place]) Address [address] [place] [address] Care Team Providers Care Edger Technician Name Role Phone Alfredo Aguiar MD Primary Care Provider + [phone] Alfredo Aguiar MD Primary Care Provider + [phone] Encounter Details Date Type Department Care Team (Late st Contact Info) Description 08/17/2019 Transcribed Document [facility] [place] [facility] [place] [address] ProviderEryn MD [address] [place] [address] Social History Tobacco Use Types Packs/Day Years Used Date Smoking Tobacco: Never Assessed Sex and Gender Information Value Date Recorded Sex Assigned at Not on file Legal Sex Male 5:45 PM CDT Gender Identity Not on file Sexual Orientation Not on file documented as of this encounter Miscellaneous Notes * Cerner Conversion Note - Eryn ProviderMD - 08/17/2019 2:00 AM ORGANIZATIONAL DEVELOPMENT SPECIALIST Spiritual Care Assessment Entered On: 08/17/2019 11:57 EST Performed On: 08/17/2019 11:15 EST by ART KENNEDY [facility] Comment/Summary Points : Provided pre-surgery visit and prayer. ART KENNEDY - 08/17/2019 11:56 EST Spiritual Assessment Spirital Assessment Comment/Summary Report : SPIRITUAL ASSESSMENT COMMENT/SUMMARY No qualifying data available. ART KENNEDY - 08/17/2019 11:56 EST Electronically signed by Wellington [facility] Conversion Aircraft Worker Cerner at 11/18/2022 9:31 AM CDT documented in this encounter Plan of Treatment Not on file documented as of this encounter Visit Diagnoses Not on filedocumented in this encounter Care Teams Edger Technician Relationship Specialty Start Date End Date Alfredo Aguiar MD [address] [place] [address] PCP - General Adolescent Medicine 10/16/22 10/19/22 Alfredo Aguiar MD [address] [place] [address] PCP - General Adolescent Medicine 10/20/22 documented as of this encounter
--- OUTSIDE RECORDS SUMMARY | 2025-05-17 10:06 | XMS_ITS | Encounter Summary ---
Author Organization [employer] ([place], [place], [place], [place]) Address [address] [place] [address] Care Team Providers Care Boning Room Worker Name Role Phone Alfredo Aguiar MD Primary Care Provider + [phone] Alfredo Aguiar MD Primary Care Provider + [phone] Encounter Details Date Type Department Care Team (Late st Contact Info) Description 08/18/2019 Transcribed Document [facility] [place] [facility] [place] [address] ProviderEryn MD [address] [place] [address] Social History Tobacco Use Types Packs/Day Years Used Date Smoking Tobacco: Never Assessed Sex and Gender Information Value Date Recorded Sex Assigned at Not on file Legal Sex Male 5:45 PM CDT Gender Identity Not on file Sexual Orientation Not on file documented as of this encounter Miscellaneous Notes * Cerner Conversion Note - Eryn Arcos MD - 08/18/2019 5:54 AM QUILL SKINNER Patient: LORA JAIN JR Age: 78 years [...] alive and healthy SH: , lives in [place], [place]. Denies tobacco, alcohol, or illicit [...] treatment plan and agrees with the above. documented in this encounter Plan of Treatment Not on file documented as of this encounter Visit Diagnoses Not on filedocumented in this encounter Care Teams Boning Room Worker Relationship Specialty Start Date End Date Alfredo Aguiar MD [address] [place] [address] PCP - General Adolescent Medicine 10/16/22 10/19/22 Alfredo Aguiar MD [address] [place] [address] PCP - General Adolescent Medicine 10/20/22 documented as of this encounter
--- OUTSIDE RECORDS SUMMARY | 2025-05-17 10:06 | XMS_ITS | Clinical Summary ---
Author Organization [employer] ([place], [place], [place], [place]) Address [address] [place] [address] Care Team Providers Care Print Line Tailer Name Role Phone Alfredo Aguiar MD Primary Care Provider [phone] Allergies No known active allergies Medications lisinopriL [...] Date Devin rded Speak language other than Djib[place] at home Not on file 08/21/2023 Want [...] Vaccine (Zoster) Completed 11/09/2018, Insurance [place] [id number] MEDICARE PART A B [employer] Advance Directives For more information, please contact: [phone] * Full Code (Latest Code Status on File) Date Activated Date Inactivated Comments 10/15/2022 10:17 PM 10/16/2022 7:32 PM Care Teams Print Line Tailer Relationship Specialty Start Date End Date Alfredo Aguiar MD [address] [place] [address] PCP - General Adolescent Medicine 10/20/22
--- OUTSIDE RECORDS SUMMARY | 2025-05-17 10:06 | XMS_ITS | Encounter Summary ---
Author Organization [employer] ([place], [place], [place], [place]) Address [address] [place] [address] Care Team Providers Care Wash Mill Operator Name Role Phone Alfredo Aguiar MD Primary Care Provider + [phone] Alfredo Aguiar MD Primary Care Provider + [phone] Encounter Details Date Type Department Care Team (Late st Contact Info) Description 08/18/2019 Transcribed Document [facility] [place] [facility] [place] [address] ProviderEryn MD [address] [place] [address] Social History Tobacco Use Types Packs/Day Years Used Date Smoking Tobacco: Never Assessed Sex and Gender Information Value Date Recorded Sex Assigned at Not on file Legal Sex Male 5:45 PM CDT Gender Identity Not on file Sexual Orientation Not on file documented as of this encounter Miscellaneous Notes * Cerner Conversion Note - Eryn ProviderMD - 08/18/2019 1:35 PM COMMUNITY DIRECTOR Treatment Intervention, OT Entered On: 08/19/2019 11:54 [...] 08/19/2019 12:08 EST Co-treated by, OT : business support assistant (SOCK IRONER) BRANDY MATHEW COTA - 08/19/2019 11:52 EST [...] BRANDY MATHEW COTA - 08/19/2019 11:52 EST [place] Goals, OT Grooming LTG Grid Goal #1 [...] supine in bed. FAmily present. Used leg commercial or institutional cleaner to get to EOB. SUP. Client stood with gaitbelt and RW at MIN A. Ambulate functional distance with chair follow. Had seated RB and was taken down to gym. Transfer to mat at MIN A. Participated in BLE ROM with PT. Client was ed on AE including a filing or registry clerk, sock aide, shoe horn and LHS. Client taken back to room. Up to recliner. CL in place. Joint assistant coach present during all of session Assessment [...] BRANDY MATHEW COTA - 08/19/2019 11:52 EST [place] OT Charges RAMACHANDRAN OT Selfcare/Hm Mgmt Ea 15 Min-RAMACHANDRAN : 1 OT Ther Activities Ea 15 Min-RAMACHANDRAN : 2 BRANDY MATHEW COTA - 08/19/2019 11:52 EST documented in this encounter Plan of Treatment Not on file documented as of this encounter Visit Diagnoses Not on filedocumented in this encounter Care Teams Wash Mill Operator Relationship Specialty Start Date End Date Alfredo Aguiar MD [address] [place] [address] PCP - General Adolescent Medicine 10/16/22 10/19/22 Alfredo Aguiar MD [address] [place] [address] PCP - General Adolescent Medicine 10/20/22 documented as of this encounter
--- OUTSIDE RECORDS SUMMARY | 2025-05-17 10:06 | XMS_ITS | Encounter Summary ---
Author Organization [employer] ([place], [place], [place], [place]) Address [address] [place] [address] Care Team Providers Care Emissions Technician Name Role Phone Alfredo Aguiar MD Primary Care Provider + [phone] Alfredo Aguiar MD Primary Care Provider + [phone] Encounter Details Date Type Department Care Team (Late st Contact Info) Description 08/18/2019 Transcribed Document [facility] [place] [facility] [place] [address] ProviderEryn MD [address] [place] [address] Social History Tobacco Use Types Packs/Day Years Used Date Smoking Tobacco: Never Assessed Sex and Gender Information Value Date Recorded Sex Assigned at Not on file Legal Sex Male 5:45 PM CDT Gender Identity Not on file Sexual Orientation Not on file documented as of this encounter Miscellaneous Notes * Cerner Conversion Note - Eryn ProviderMD - 08/18/2019 11:09 AM TRANSPORT SPECIALIST UM Authorization Entered On: 08/18/2019 11:09 EST Performed On: 08/18/2019 11:09 EST by Ethel Bowen Rn-Utilization Review Primary Insurance Authorization Authorization and Policy Numbers : Insurance 1 Health Plan: MEDICARE Policy Number: [id number] Authorization Number: Insurance 2 Health Plan: FOR LIFE Policy Number: [id number] Authorization Number: Insurance Primary Name : Medicare [id number] Authorized Service Begin Date-Primary : 08/17/2019 EST Historical Authorization Comments-Primary : Comment 1: pt scheduled as OUTPT for total knee on 08-17-2019 medicare: NPR (JASWANT PALMA, Youth Development Professional 08/16/2019 13:25) Ethel Bowen, Rn-Utilization Review - 08/18/2019 11:09 EST Electronically signed by Wellington, [facility] Conversion Telex Operator Cerner at 11/18/2022 9:29 AM CDT documented in this encounter Plan of Treatment Not on file documented as of this encounter Visit Diagnoses Not on filedocumented in this encounter Care Teams Emissions Technician Relationship Specialty Start Date End Date Alfredo Aguiar MD [address] [place] [address] PCP - General Adolescent Medicine 10/16/22 10/19/22 Alfredo Aguiar MD [address] [place] [address] PCP - General Adolescent Medicine 10/20/22 documented as of this encounter
--- OUTSIDE RECORDS SUMMARY | 2025-05-17 10:06 | XMS_ITS | Encounter Summary ---
Author Organization [employer] ([place], [place], [place], [place]) Address [address] [place] [address] Care Team Providers Care Continuous Improvement Black Belt Name Role Phone Alfredo Aguiar MD Primary Care Provider + [phone] Alfredo Aguiar MD Primary Care Provider + [phone] Encounter Details Date Type Department Care Team (Late st Contact Info) Description 08/17/2019 Transcribed Document [facility] Family Medicine [facility] [place] [address] ProviderEryn MD [address] [place] [address] Social History Tobacco Use Types Packs/Day Years Used Date Smoking Tobacco: Never Assessed Sex and Gender Information Value Date Recorded Sex Assigned at Not on file Legal Sex Male 5:45 PM CDT Gender Identity Not on file Sexual Orientation Not on file documented as of this encounter Miscellaneous Notes * Cerner Conversion Note - Eryn ProviderMD - 08/17/2019 6:35 PM PRIMARY EDUCATION PROFESSOR Pain Assessment Entered On: 08/19/2019 19:59 EST [...] in this encounter Care Teams Continuous Improvement Black Belt Relationship Specialty Start Date End Date Alfredo Aguiar MD [address] [place] [address] PCP - General Adolescent Medicine 10/16/22 10/19/22 Alfredo Aguiar MD [address] [place] [address] PCP - General Adolescent Medicine 10/20/22 documented as of this encounter
--- OUTSIDE RECORDS SUMMARY | 2025-05-17 10:06 | XMS_ITS | Encounter Summary ---
Author Organization [employer] ([place], [place], [place], [place]) Address [address] [place] [address] Care Team Providers Care Franchise Development Manager Name Role Phone Alfredo Aguiar MD Primary Care Provider + [phone] Alfredo Aguiar MD Primary Care Provider + [phone] Encounter Details Date Type Department Care Team (Late st Contact Info) Description 05/21/2019 Transcribed Document [facility] [place] [facility] [place] [address] ProviderEryn MD [address] [place] [address] Social History Tobacco Use Types Packs/Day Years [...] on filedocumented in this encounter Care Teams Franchise Development Manager Relationship Specialty Start Date End Date Alfredo Aguiar MD [address] [place] [address] PCP - General Adolescent Medicine 10/16/22 10/19/22 Alfredo Aguiar MD [address] [place] [address] PCP - General Adolescent Medicine 10/20/22 documented as of this encounter
--- OUTSIDE RECORDS SUMMARY | 2025-05-17 10:06 | XMS_ITS | Encounter Summary ---
Author Organization [employer] ([place], [place], [place], [place]) Address [address] [place] [address] Care Team Providers Care Fat Purification Worker Name Role Phone Alfredo Aguiar MD Primary Care Provider + [phone] Alfredo Aguiar MD Primary Care Provider + [phone] Encounter Details Date Type Department Care Team (Late st Contact Info) Description 08/17/2019 Transcribed Document [facility] [place] [facility] [place] [address] ProviderEryn MD [address] [place] [address] Social History Tobacco Use Types Packs/Day Years Used Date Smoking Tobacco: Never Assessed Sex and Gender Information Value Date Recorded Sex Assigned at Not on file Legal Sex Male 5:45 PM CDT Gender Identity Not on file Sexual Orientation Not on file documented as of this encounter Miscellaneous Notes * Cerner Conversion Note - Eryn Arcos MD - 08/17/2019 6:35 PM CHANGE COORDINATOR Evaluation, Occupational Therapy Entered On: 08/18/2019 13:18 [...] Viramontes STUDENT-OCCUPATIONAL THERAPIST - 08/18/2019 13:11 EST [facility] Goals, OT Grooming LTG Grid Goal #1 [...] SBA supine to sit EOB using leg differential tester. Pt required Mod A x2 sit to [...] YEIMI WALKER OTR/L - 08/18/2019 13:33 EST [place] OT Charges OT Ther Activities Ea 15 Min : 1 OT Eval Low Complexity : 1 Jere Viramontes STUDENT-OCCUPATIONAL THERAPIST - 08/18/2019 13:11 EST Electronically signed by Wellington [facility] Conversion Mail Service Coordinator Cerner at 11/18/2022 9:30 AM CDT documented in this encounter Plan of Treatment Not on file documented as of this encounter Visit Diagnoses Not on filedocumented in this encounter Care Teams Fat Purification Worker Relationship Specialty Start Date End Date Alfredo Aguiar MD [address] [place] [address] PCP - General Adolescent Medicine 10/16/22 10/19/22 Alfredo Aguiar MD [address] [place] [address] PCP - General Adolescent Medicine 10/20/22 documented as of this encounter
--- OUTSIDE RECORDS SUMMARY | 2025-05-17 10:06 | XMS_ITS | Clinical Summary ---
Author Organization [facility] Address [address] [place] [address] Phone Care Team Providers Care Engine Room Helper Name Role Phone Danish MALDONADO, Baljinder Jara [facility] [ ] Conditions or Problems Problem Name Problem Code Onset Date Status Entry Date Provider Comment Standard Description Annotate Acute nontraumatic kidney injury [id number] (SNOMED CT) 11/23 Active 11/23 Baljinder Peng MD Acute nontraumatic kidney injury Anemia due to acute blood loss 605396467 (SNOMED CT) 08/24 Active 08/24 Michelle Mcmanus [...] diabetes mellitus without complications Benign Essential Hypertension 80964978 (SNOMED CT) 08/14 Active 08/14 Michelle Mcmanus Benign hypertension Malignant neoplasm of prostate 633221130 (SNOMED CT) 08/14 Active 08/14 Michelle Mcmanus Malignant neoplasm of prostate Medications Medication Instructions Start Date Stop Date Generic Name NDC Provider AMOXICILLIN 875 MG TABS Take by mouth twice a day 3 AMOXICILLIN 63564198228 Baljinder Peng MD AMOXICILLIN 875 MG TABS Take by mouth twice a day 3 AMOXICILLIN 97109118696 Baljinder Peng MD AMOXICILLIN 875 MG TABS Take one (1) tablet by mouth twice a day 1 AMOXICILLIN 00359424753 Baljinder Peng MD AMOXICILLIN 875 MG TABS 1 by mouth twice a day 3 AMOXICILLIN 06365842272 Baljinder Peng MD AMOXICILLIN-POT CLAVULANATE 875-125 MG TABS one po bid 5 AMOXICILLIN-PO T CLAVULANATE 31878594279 Baljinder Peng MD AMOXICILLIN-POT CLAVULANATE 875-125 MG TABS one po bid 5 AMOXICILLIN-PO T CLAVULANATE 34607975002 Baljinder Peng MD AMOXICILLIN 875 MG TABS 1 by mouth twice a day 3 AMOXICILLIN 94143382448 Baljinder Peng MD VIIBRYD 40 MG TABS Take 1 tablet by mouth daily at bedtime 1 VILAZODONE HCL 52702899743 Shireen Fernandes PERCOCET 5-325 MG TABS 1 tablet every 4 hours as needed 1 OXYCODONE-ACET AMINOPHEN 64496778246 Shireen Fernandes [facility] OMEPRAZOLE 20 MG TBDD Take 1 tablet by mouth daily at bedtime 1 OMEPRAZOLE 57486967079 Shireen Fernandes NEURONTIN 300 MG CAPS Take 1 tablet by mouth daily at bedtime as needed 1 GABAPENTIN 75176506530 Shireen Fernandes GLUCOPHAGE 1000 MG ORAL TABLET Take one (1) tablet by mouth twice a day 1 METFORMIN HCL 61059692272 Shireen Fernandes COLACE 100 MG CAPS Take one (1) tablet by mouth twice a day as needed DOCUSATE SODIUM 77839787407 Shireen Fernandes BISOPROLOL FUMARATE 5 MG TABS Take 1 tablet by mouth daily BISOPROLOL FUMARATE 70337376402 Shireen Fernandes ADULT ASPIRIN REGIMEN 81 MG ORAL TABLET DELAYED RELEASE Take one (1) tablet by mouth twice a day ASPIRIN 59543552775 Shireen Fernandes AMOXICILLIN 875 MG TABS Take one (1) tablet by mouth twice a day AMOXICILLIN 81227608079 Shireen Fernandes BISOPROLOL FUMARATE 5 MG TABS 1 tab daily BISOPROLOL FUMARATE 64809001095 Shireen Fernandes ELIQUIS 2.5 MG TABS 1 tab, BID APIXABAN 50245010624 Shireen Fernandes [facility] IRON 325 (65 Fe) MG TABS 1 tab daily FERROUS SULFATE 54723514330 Shireen Fernandes GLUCOPHAGE 1000 MG ORAL TABLET 1 tab, BID METFORMIN HCL 88012892453 Shireen Fernandes EQ OMEPRAZOLE 20 MG TBEC 1 tab, at bedtime OMEPRAZOLE 42335015190 Shireen Fernandes VIIBRYD 40 MG TABS 1 tab, at bedtime VILAZODONE HCL 03570807526 Shireen Fernandes NOVOLOG MIX 70/30 FLEXPEN (70-30) 100 UNIT/ML SUPN Takes 20 units at breakfast and 6 units at dinner INSULIN ASPART PROT & ASPART 66327967859 Shireen Fernandes SPIRIVA HANDIHALER 18 MCG CAPS Takes two inhalations daily TIOTROPIUM BROMIDE MONOHYDRATE 55305549520 Shireen Fernandes MOTRIN IB 200 MG TABS Takes 400mg every 6 hours for pain as needed. IBUPROFEN 28808970422 Shireen Fernandes CEFTRIAXONE SODIUM Rocephin 2G IV [id number] RIDGE(Caretender s administers at [facility])/[facility] dose, labs, PICC care 3 CEFTRIAXONE SODIUM Jayla W MOTRIN IB 200 MG TABS Takes 400mg every 6 hours for pain as needed. 5 IBUPROFEN 65033144392 May Munoz SPIRIVA HANDIHALER 18 MCG CAPS Takes two inhalations daily 5 TIOTROPIUM BROMIDE MONOHYDRATE 35016976218 May Munoz NOVOLOG MIX 70/30 FLEXPEN (70-30) 100 UNIT/ML SUPN Takes 20 units at breakfast and 6 units at dinner INSULIN ASPART PROT & ASPART 84173209316 May Munoz COLACE 100 MG CAPS 1 cap, PRN, BID 1 DOCUSATE SODIUM 83809119334 May Munoz PERCOCET 5-325 MG TABS 1 tab, PRN, Q4H 1 OXYCODONE-ACET AMINOPHEN 65540238777 May Munoz CEFTRIAXONE SODIUM Rocephin 2G IV [id number] RIDGE(Caretender s administers at [facility])/[facility] dose, labs, PICC care 3 CEFTRIAXONE SODIUM Ban Potts RN CEFTRIAXONE SODIUM Rocephin 2G IV [id number] RS/PERSONAL CARE [facility]IL [facility] 3 CEFTRIAXONE SODIUM Ban Potts RN VIIBRYD 40 MG TABS 1 tab, at bedtime 1 VILAZODONE HCL 45606057173 Shireen Fernandes PERCOCET 5-325 MG TABS 1 tab, PRN, Q4H 1 OXYCODONE-ACET AMINOPHEN 59687422970 Shireen Fernandes EQ OMEPRAZOLE 20 MG TBEC 1 tab, at bedtime 1 OMEPRAZOLE 34744822832 Shireen Fernandes GLUCOPHAGE 1000 MG ORAL TABLET 1 tab, BID 1 METFORMIN HCL 37965226803 Shireen Fernandes [facility] IRON 325 (65 Fe) MG TABS 1 tab daily FERROUS SULFATE 29400685247 Shireen Fernandes ELIQUIS 2.5 MG TABS 1 tab, BID APIXABAN 37800535859 Shireen Fernandes COLACE 100 MG CAPS 1 cap, PRN, BID DOCUSATE SODIUM 57871581931 Shireen Fernandes BISOPROLOL FUMARATE 5 MG TABS 1 tab daily BISOPROLOL FUMARATE 32355311857 Shireen Fernandes Medications Administered No information available. Allergies, Adverse Reactions, Alerts No information available. Results Date Name Value Unit Range Flag Description Clinical Lists Update: Prelo ad HGBA1C 10.7 % Hemoglobin A1c/Hemoglobin, total in Blood - % External Other: Patient port al update - Email Push, [employer] ... PAT E-MAIL [email or web address] patient's e-mail address External Other: Patient port al update - [facility]Status, [facility] ... PATPORTALPIN Active This deena l be [...] Name Date Entry Date CPT-sl STAT Labs [id number] CBC with Differential 2019 CPT-88946 Sedimentation Rate (ESR) 202 CPT-33192 C- reactive protein CPT-52287 CMP CPT-sl STAT Labs CPT-sl STAT Labs CPT-65244 CMP [id number] CBC with Differential 2019 CPT-07633 C- reactive protein CPT-01187 Sedimentation Rate (ESR) 202 CPT-sl STAT Labs CPT-sl STAT Labs CPT-01211 CMP [id number] CBC with Differential 2019 CPT-61326 C- reactive protein CPT-38304 Sedimentation Rate (ESR) 202 CPT- stat weekly [...]
--- OUTSIDE RECORDS SUMMARY | 2025-05-17 10:06 | XMS_ITS | Encounter Summary ---
Author Organization [employer] ([place], [place], [place], [place]) Address [address] [place] [address] Care Team Providers Care Hanging Flags Decorator Name Role Phone Alfredo Aguiar MD Primary Care Provider + [phone] Alfredo Aguiar MD Primary Care Provider + [phone] Encounter Details Date Type Department Care Team (Late st Contact Info) Description 08/17/2019 Transcribed Document [facility] 1 [place] [address] Guillermina Allison MD [facility] [place] [address] Social History Tobacco Use Types Packs/Day Years [...] Problems Tachycardia, takes bisoprolol / SNOMED CT 0746726 / Confirmed Sleep apnea (cpap) / SNOMED CT 276996444 / Confirmed Skin cancer / SNOMED CT 2244524509 / Confirmed Bundle branch block, right / SNOMED CT 96909596 / Confirmed Restless legs syndrome (occasional) / SNOMED CT 83524654 / Confirmed Infection of prosthetic left knee joint / SNOMED CT 112275390 / Confirmed Degenerative joint disease (left knee) / SNOMED CT 5861716549 / Confirmed Migraine (hx of) / SNOMED CT 35393307 / Confirmed Incontinence (occasional) / SNOMED CT 66911264 / Confirmed History of obstructive sleep apnea / IMO 87297215 / Confirmed Hiatal hernia / SNOMED CT 122397731 / Confirmed H/O: TIA / SNOMED CT 876893171 / Confirmed states went to ER and was given workup, which was inconclusive GERD - Gastro-esophageal reflux disease (occasional) / SNOMED CT 5662949897 / Confirmed 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 Family History: No family history items [...] uses wc to ambulate. Integumentary: Warm, Dry, [place], mild redness in gluteal fold POA. Neurologic: [...] on filedocumented in this encounter Care Teams Hanging Flags Decorator Relationship Specialty Start Date End Date Alfredo Aguiar MD [address] [place] [address] PCP - General Adolescent Medicine 10/16/22 10/19/22 Alfredo Aguiar MD [address] [place] [address] PCP - General Adolescent Medicine 10/20/22 documented as of this encounter
--- OUTSIDE RECORDS SUMMARY | 2025-05-17 10:06 | XMS_ITS | Encounter Summary ---
Author Organization [employer] ([place], [place], [place], [place]) Address [address] [place] [address] Care Team Providers Care Cost Coordinator Name Role Phone Alfredo Lackey MD Primary Care Provider + [phone] Alfredo aLckey MD Primary Care Provider + [phone] Encounter Details Date Type Department Care Team (Late st Contact Info) Description 08/18/2019 Transcribed Document [facility] [place] Family Medicine [facility] [address] ProviderEryn MD [address] [place] [address] Social History Tobacco Use Types Packs/Day Years Used Date Smoking Tobacco: Never Assessed Sex and Gender Information Value Date Recorded Sex Assigned at Not on file Legal Sex Male 5:45 PM CDT Gender Identity Not on file Sexual Orientation Not on file documented as of this encounter Miscellaneous Notes * [employer]ner Conversion Note - Eryn Arcos MD - 08/18/2019 6:09 AM INDUSTRIAL ORDER CLERK Patient: LORA JAIN JR Age: 78 Years Sex: Male : 1940 Admit Date 08/17/2019 07:12 Discharge Date 08/20/2019 Primary Care Provider ALFREDO LACKEY (REF)[facility] Discharge Diagnosis Status post revision of total [...] and incisional VAC in place Discharge Disposition [facility] inpatient rehabilitation before transfer [...] -- Start: 08/17/19 18:48:00 EST, 60 gm carbs:[id number] randa, Isolation: Standard Precautions, Instructions: Diabetic Diet [...] KNEE, T84.54XA, Pre-Op Dx: T84.54XA, Print Label, [id number], Print Label By Order Location,... In-Lab Culture [...] Lab Collect:, Micro Spec, Media label Y/N, [id number] Culture Fungus Specimen Type: Tissue, From: Knee [...] on filedocumented in this encounter Care Teams Cost Coordinator Relationship Specialty Start Date End Date Alfredo Lackey MD [address] [place] [address] PCP - General Adolescent Medicine 10/16/22 10/19/22 Alfredo Lackey MD [address] [place] [address] PCP - General Adolescent Medicine 10/20/22 documented as of this encounter
--- OUTSIDE RECORDS SUMMARY | 2025-05-17 10:06 | XMS_ITS | Encounter Summary ---
Author Organization [employer] ([place], [place], [place], [place]) Address [address] [place] [address] Care Team Providers Care Hi Teacher Name Role Phone Alfredo Aguiar MD Primary Care Provider + [phone] Alfredo Aguiar MD Primary Care Provider + [phone] Encounter Details Date Type Department Care Team (Late st Contact Info) Description 08/17/2019 Transcribed Document [facility] [place] [address] ProviderEryn MD [address] [place] [address] Social History Tobacco Use Types Packs/Day Years Used Date Smoking Tobacco: Never Assessed Sex and Gender Information Value Date Recorded Sex Assigned at Not on file Legal Sex Male 5:45 PM CDT Gender Identity Not on file Sexual Orientation Not on file documented as of this encounter Miscellaneous Notes * Cerner Conversion Note - Eryn ProviderMD - 08/17/2019 6:35 PM FORMULATOR COMPOUNDER Pain Assessment Entered On: 08/19/2019 1:41 EST [...] on filedocumented in this encounter Care Teams Hi Teacher Relationship Specialty Start Date End Date Alfredo Aguiar MD [address] [place] [address] PCP - General Adolescent Medicine 10/16/22 10/19/22 Alfredo Aguiar MD [address] [place] [address] PCP - General Adolescent Medicine 10/20/22 documented as of this encounter
--- OUTSIDE RECORDS SUMMARY | 2025-05-17 10:06 | XMS_ITS | Encounter Summary ---
Author Organization [employer] ([place], [place], [place], [place]) Address [address] [place] [address] Care Team Providers Care Corporate Paralegal Name Role Phone Alfredo Aguiar MD Primary Care Provider + [phone] Alfredo Aguiar MD Primary Care Provider + [phone] Encounter Details Date Type Department Care Team (Late st Contact Info) Description 08/17/2019 Transcribed Document [facility] 1 [place] [address] Lion Allison MD [address] [place] [address] Social History Tobacco Use Types Packs/Day Years [...] filedocumented in this encounter Care Teams Corporate Paralegal Relationship Specialty Start Date End Date Alfredo Aguiar MD [address] [place] [address] PCP - General Adolescent Medicine 10/16/22 10/19/22 Alfredo Aguiar MD [address] [place] [address] PCP - General Adolescent Medicine 10/20/22 documented as of this encounter
--- OUTSIDE RECORDS SUMMARY | 2025-05-17 10:06 | XMS_ITS | Encounter Summary ---
Author Organization [employer] ([place], [place], [place], [place]) Address [address] [place] [address] Care Team Providers Care Lunchroom Monitor Name Role Phone Alfredo Aguiar MD Primary Care Provider + [phone] Alfredo Aguiar MD Primary Care Provider + [phone] Encounter Details Date Type Department Care Team (Late st Contact Info) Description 08/18/2019 Transcribed Document [facility] 1 [place] [address] Massimo Butterfield MD [address] [place] [address] Social History Tobacco Use Types Packs/Day [...] bed. He is awaiting a bed at [facility] in [place] for rehab at discharge. No cough, fever/chills, n/v or dysuria. Bowels have not yet moved but patient reports passing gas. HPI: Patient is an 78 yo male admitted to [facility] per Dr. 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
--- OUTSIDE RECORDS SUMMARY | 2025-05-17 10:06 | XMS_ITS | Encounter Summary ---
Author Organization [employer] ([place], [place], [place], [place]) Address [address] [place] [address] Care Team Providers Care Logistics Management Specialist Name Role Phone Alfredo Aguiar MD Primary Care Provider + [phone] Alfredo Aguiar MD Primary Care Provider + [phone] Encounter Details Date Type Department Care Team (Late st Contact Info) Description 08/18/2019 Transcribed Document [facility] [place] Family Medicine [facility] [place] [address] ProviderEryn MD [address] [place] [address] Social History Tobacco Use Types Packs/Day Years Used Date Smoking Tobacco: Never Assessed Sex and Gender Information Value Date Recorded Sex Assigned at Not on file Legal Sex Male 5:45 PM CDT Gender Identity Not on file Sexual Orientation Not on file documented as of this encounter Miscellaneous Notes * [employer]ner Conversion Note - Eryn ProviderMD - 08/18/2019 11:53 AM ANESTHESIOLOGIST/PHYSICIAN Treatment Intervention, PT Entered On: 08/18/2019 15:16 [...] : 08/17/2019 07:12 Assisted by, PT : principal technical specialist/aide Personal Devices : Personal Devices No Devices [...] Orientation : Oriented x 4 SHARON WALTON PATHOLOGY LAB TECHNICIAN - 08/18/2019 15:09 EST Edu Topics Physical Therapy Education Grid Gait Training : Returns demonstration, Needs further teaching Role of Physical Therapy : Returns demonstration Therapeutic Exercises : Returns demonstration, Needs further teaching Transfer Training : Returns demonstration, Needs further teaching SHARON WALTON PATHOLOGY LAB TECHNICIAN - 08/18/2019 15:09 EST Indication Assesessment, PT Physical Therapy Indicated : Yes SHARON WALTONMAUREEN - 08/18/2019 15:09 EST Plan of Care, PT PT Tx Plan/Goals Established w Patient : Yes SHARON WALTON PATHOLOGY LAB TECHNICIAN 08/18/2019 15:09 EST Nursing Home Director Goals Mobility/Bed Mobility LTG PT Grid [...] Discharge to : Unit, rehabilitation SHARON WALTON, PATHOLOGY LAB TECHNICIAN - 08/18/2019 15:09 EST [facility] PATHOLOGY LAB TECHNICIAN PT Therap. Exercise 15 min-PATHOLOGY LAB TECHNICIAN : 1 Gait Training Each 15 Min-PATHOLOGY LAB TECHNICIAN : 1 SHARON WALTON, PATHOLOGY LAB TECHNICIAN - 08/18/2019 15:09 EST Electronically signed by [facility] Conversion Layout Inspector [employer] at 11/23/2022 1:10 PM CDT documented in this encounter Plan of Treatment Not on file documented as of this encounter Visit Diagnoses Not on filedocumented in this encounter Care Teams Logistics Management Specialist Relationship Specialty Start Date End Date Alfredo Aguiar MD [address] [place] [address] PCP - General Adolescent Medicine 10/16/22 10/19/22 Alfredo Aguiar MD [address] [place] [address] PCP - General Adolescent Medicine 10/20/22 documented as of this encounter
--- OUTSIDE RECORDS SUMMARY | 2025-05-17 10:06 | XMS_ITS | Encounter Summary ---
Author Organization [employer] ([place], [place], [place], [place]) Address [address] [place] [address] Care Team Providers Care Ethical Hacker Name Role Phone Alfredo Aguiar MD Primary Care Provider + [phone] Alfredo Aguiar MD Primary Care Provider + [phone] Encounter Details Date Type Department Care Team (Late st Contact Info) Description 05/21/2019 Transcribed Document [facility] [place] [facility] [place] [address] ProviderEryn MD [address] [place] [address] Social History Tobacco Use Types Packs/Day Years [...] on filedocumented in this encounter Care Teams Ethical Hacker Relationship Specialty Start Date End Date Alfredo Aguiar MD [address] [place] [address] PCP - General Adolescent Medicine 10/16/22 10/19/22 Alfredo Aguiar MD [address] [place] [address] PCP - General Adolescent Medicine 10/20/22 documented as of this encounter
--- OUTSIDE RECORDS SUMMARY | 2025-05-17 10:06 | XMS_ITS | Encounter Summary ---
Author Organization [employer] ([place], [place], [place], [place]) Address [address] [place] [address] Care Team Providers Care Manager Of Loss Prevention Operations Name Role Phone Alfredo Aguiar MD Primary Care Provider + [phone] Alfredo gAuiar MD Primary Care Provider + [phone] Encounter Details Date Type Department Care Team (Late st Contact Info) Description 08/18/2019 Transcribed Document [facility] [place] Family [place] [address] ProviderEryn MD [address] [place] [address] Social History Tobacco Use Types Packs/Day Years Used Date Smoking Tobacco: Never Assessed Sex and Gender Information Value Date Recorded Sex Assigned at Not on file Legal Sex Male 5:45 PM CDT Gender Identity Not on file Sexual Orientation Not on file documented as of this encounter Miscellaneous Notes * [employer]ner Conversion Note - Eryn ProviderMD - 08/18/2019 2:00 AM PROPERTY MAINTENANCE SUPERVISOR Burrer Marker Axle Details Entered On: 08/18/2019 4:12 EST Performed [...] 08/18/2019 4:12 EST Electronically signed by [facility] Conversion Piping Designer Cerner at 11/18/2022 9:31 AM CDT documented in this encounter Plan of Treatment Not on file documented as of this encounter Visit Diagnoses Not on filedocumented in this encounter Care Teams Manager Of Loss Prevention Operations Relationship Specialty Start Date End Date Alfredo Aguiar MD [address] [place] [address] PCP - General Adolescent Medicine 10/16/22 10/19/22 Alfredo Aguiar MD [address] [place] [address] PCP - General Adolescent Medicine 10/20/22 documented as of this encounter
--- OUTSIDE RECORDS SUMMARY | 2025-05-17 10:06 | XMS_ITS | Encounter Summary ---
Author Organization [employer] ([place], [place], [place], [place]) Address [address] [place] [address] Care Team Providers Care Building Operator Name Role Phone Alfredo Aguiar MD Primary Care Provider + [phone] Alfredo Aguiar MD Primary Care Provider + [phone] Encounter Details Date Type Department Care Team (Late st Contact Info) Description 08/18/2019 Transcribed Document [facility] [place] Family Medicine [address] [place] [address] ProviderEryn MD [address] [place] [address] Social History Tobacco Use Types Packs/Day Years Used Date Smoking Tobacco: Never Assessed Sex and Gender Information Value Date Recorded Sex Assigned at Not on file Legal Sex Male 5:45 PM CDT Gender Identity Not on file Sexual Orientation Not on file documented as of this encounter Miscellaneous Notes * Cerner Conversion Note - Eryn ProviderMD - 08/18/2019 12:00 PM ARMATURE STRAIGHTENER Pain Assessment Entered On: 08/18/2019 16:41 EST [...] filedocumented in this encounter Care Teams Building Operator Relationship Specialty Start Date End Date Alfredo Aguiar MD [address] [place] [address] PCP - General Adolescent Medicine 10/16/22 10/19/22 Alfredo Aguiar MD [address] [place] [address] PCP - General Adolescent Medicine 10/20/22 documented as of this encounter
--- OUTSIDE RECORDS SUMMARY | 2025-05-17 10:06 | XMS_ITS | Encounter Summary ---
Author Organization [employer] ([place], [place], [place], [place]) Address [address] [place] [address] Care Team Providers Care Postmaster Name Role Phone Alfredo Aguiar MD Primary Care Provider + [phone] Alfredo Aguiar MD Primary Care Provider + [phone] Encounter Details Date Type Department Care Team (Late st Contact Info) Description 08/18/2019 Transcribed Document [facility] [place] Family Medicine [address] [place] [address] ProviderEryn MD [address] [place] [address] Social History Tobacco Use Types Packs/Day Years Used Date Smoking Tobacco: Never Assessed Sex and Gender Information Value Date Recorded Sex Assigned at Not on file Legal Sex Male 5:45 PM CDT Gender Identity Not on file Sexual Orientation Not on file documented as of this encounter Miscellaneous Notes * [employer]ner Conversion Note - Eryn ProviderMD - 08/18/2019 6:00 AM BORING MILL OPERATOR FOR METAL Pain Assessment Entered On: 08/18/2019 16:41 EST [...] on filedocumented in this encounter Care Teams Postmaster Relationship Specialty Start Date End Date Alfredo Aguiar MD [address] [place] [address] PCP - General Adolescent Medicine 10/16/22 10/19/22 Alfredo Aguiar MD [address] [place] [address] PCP - General Adolescent Medicine 10/20/22 documented as of this encounter
--- OUTSIDE RECORDS SUMMARY | 2025-05-17 10:06 | XMS_ITS | Encounter Summary ---
Author Organization [facility] ([place], [place], [place], [place]) Address [address] [place] [address] Care Team Providers Care Retirement Consultant Name Role Phone Alfredo Aguiar MD Primary Care Provider + [phone] Alfredo Aguiar MD Primary Care Provider + [phone] Encounter Details Date Type Department Care Team (Late st Contact Info) Description 05/21/2019 Transcribed Document [facility] [place] [address] [place] [address] ProviderEryn MD [address] [place] [address] Social History Tobacco Use Types Packs/Day Years [...] cefTRIAXone (Rocephin) - 1 Gram, IV Piggyback, [id number], infuse over 30 Minute(s), Routine vancomycin + Sodium Chloride 0.9% intravenous solution 250 m - 1,000 mg, IV Piggyback, [id number], infuse over 1 Hour(s), Routine Anticoagulant heparin [...] alive and healthy SH: , lives in [place], [place]. Denies tobacco, alcohol, or illicit drug [...] for Dr. Wendie Peng. Electronically signed by [facility], [facility] Conversion Litigation Associate Cerner at 11/18/2022 9:41 AM CDT documented in this encounter Plan of Treatment Not on file documented as of this encounter Visit Diagnoses Not on filedocumented in this encounter Care Teams Retirement Consultant Relationship Specialty Start Date End Date Alfredo Aguiar MD [address] [place] [id number] PCP - General Adolescent Medicine 10/16/22 10/19/22 Alfredo Aguiar MD [address] [place] [address] PCP - General Adolescent Medicine 10/20/22 documented as of this encounter
--- OUTSIDE RECORDS SUMMARY | 2025-05-17 10:06 | XMS_ITS | Encounter Summary ---
Author Organization [employer] ([place], [place], [place], [place]) Address [address] [place] [address] Care Team Providers Care Protozoologist Name Role Phone Alfredo Aguiar MD Primary Care Provider + [phone] Alfredo Aguiar MD Primary Care Provider + [phone] Encounter Details Date Type Department Care Team (Late st Contact Info) Description 08/16/2019 Transcribed Document [facility] [place] [address] [place] [address] ProviderEryn MD [address] [place] [address] Social History Tobacco Use Types Packs/Day Years Used Date Smoking Tobacco: Never Assessed Sex and Gender Information Value Date Recorded Sex Assigned at Not on file Legal Sex Male 5:45 PM CDT Gender Identity Not on file Sexual Orientation Not on file documented as of this encounter Miscellaneous Notes * Cerner Conversion Note - Eryn ProviderMD - 08/16/2019 1:25 PM RADIO REPAIR TEACHER UM Authorization Entered On: 08/16/2019 13:26 EST Performed On: 08/16/2019 13:25 EST by JASWANT PALMA, Roving Changer Primary Insurance Authorization Authorization and Policy Numbers : Insurance 1 Health Plan: MEDICARE Policy Number: [id number] Authorization Number: Insurance 2 Health Plan: FOR LIFE Policy Number: [id number] Authorization Number: Insurance Primary Name : Medicare [id number] Authorized Service Begin Date-Primary : 08/17/2019 EST Authorization Comments-Primary : pt scheduled as OUTPT for total knee on 08-17-2019 medicare: NPR Historical Authorization Comments-Primary : No Authorization Comments Found JASWANT PALMA, Roving Changer - 08/16/2019 13:25 EST Electronically signed by [place], [facility] Conversion Puttier Cerner at 11/18/2022 9:35 AM CDT documented in this encounter Plan of Treatment Not on file documented as of this encounter Visit Diagnoses Not on filedocumented in this encounter Care Teams Protozoologist Relationship Specialty Start Date End Date Alfredo Aguiar MD [address] [place] [address] PCP - General Adolescent Medicine 10/16/22 10/19/22 Alfredo Aguiar MD [address] [place] [address] PCP - General Adolescent Medicine 10/20/22 documented as of this encounter
--- OUTSIDE RECORDS SUMMARY | 2025-05-17 10:06 | XMS_ITS | Encounter Summary ---
Author Organization [employer] ([place], [place], [place], [place]) Address [address] [place] [address] Care Team Providers Care Woods Superintendent Name Role Phone Alfredo Aguiar MD Primary Care Provider + [phone] Alfredo Aguiar MD Primary Care Provider + [phone] Encounter Details Date Type Department Care Team (Late st Contact Info) Description 08/18/2019 Transcribed Document [facility] [place] [facility] [place] [address] ProviderEryn MD [address] [place] [address] Social History Tobacco Use Types Packs/Day Years Used Date Smoking Tobacco: Never Assessed Sex and Gender Information Value Date Recorded Sex Assigned at Not on file Legal Sex Male 5:45 PM CDT Gender Identity Not on file Sexual Orientation Not on file documented as of this encounter Miscellaneous Notes * Cerner Conversion Note - Eryn ProviderMD - 08/18/2019 2:25 PM CABANA ATTENDANT On Going Discharge Planning Entered On: 08/18/2019 14:26 EST Performed On: 08/18/2019 14:25 EST by JUANY HERNANDEZ RN-Lacrosse CoachPlaner Stone Progress Note Discharge Arrangements : Patient Post-Acute Information Patient Name: LORA JAIN JR Gender: Male : 36 Age: 78 Years [place] Referral(s): Service: Organization: Business Address: Phone Number: Intermediate Facility [facility] [address] [facility] [address] [place], [address] Discharge Options Discussed with Patient : Home Health, Short term rehabilitation Barriers to Discharge Identified : 3 Day Qualifying Stay for SNF Barriers to Discharge Unresolved : 3 Day Qualifying Stay for SNF JUANY HERNANDEZ, RN-Lacrosse Coach - 08/18/2019 14:25 EST Electronically signed by [place] [facility] Conversion Member Of Parliament Cerner at 11/18/2022 9:35 AM CDT documented in this encounter Plan of Treatment Not on file documented as of this encounter Visit Diagnoses Not on filedocumented in this encounter Care Teams Woods Superintendent Relationship Specialty Start Date End Date Alfredo Aguiar MD [address] [place] [address] PCP - General Adolescent Medicine 10/16/22 10/19/22 Alfredo Aguiar MD [address] [place] [address] PCP - General Adolescent Medicine 10/20/22 documented as of this encounter
--- OUTSIDE RECORDS SUMMARY | 2025-05-17 10:07 | XMS_ITS | Encounter Summary ---
Author Organization [employer] ([place], [place], [place], [place]) Address [address] [place] [address] Care Team Providers Care Cut Off Tender Glass Name Role Phone Alfredo Aguiar MD Primary Care Provider + [phone] Alfredo Aguiar MD Primary Care Provider + [phone] Encounter Details Date Type Department Care Team (Late st Contact Info) Description 05/23/2019 Transcribed Document [facility] [place] [facility] [place] [address] ProviderEryn MD [address] [place] [address] Social History Tobacco Use Types Packs/Day Years [...] form. Electronically signed by Radha Paris Conversion Personnel Quality Assurance Auditor Cerner at 11/18/2022 9:28 AM CDT documented in this encounter Plan of Treatment Not on file documented as of this encounter Visit Diagnoses Not on filedocumented in this encounter Care Teams Cut Off Tender Glass Relationship Specialty Start Date End Date Alfredo Aguiar MD [address] [place] [address] PCP - General Adolescent Medicine 10/16/22 10/19/22 Alfredo Aguiar MD [address] [place] [address] PCP - General Adolescent Medicine 10/20/22 documented as of this encounter
--- OUTSIDE RECORDS SUMMARY | 2025-05-17 10:07 | XMS_ITS | Encounter Summary ---
Author Organization [employer] ([place], [place], [place], [place]) Address [address] [place] [address] Care Team Providers Care Mail Handler Sorter Name Role Phone Alfredo Lackey MD Primary Care Provider + [phone] Alfredo Lackey MD Primary Care Provider + [phone] Encounter Details Date Type Department Care Team (Late st Contact Info) Description 08/20/2019 Transcribed Document [facility] [place] [facility] [place] [address] ProviderEryn MD [address] [place] [address] Social History Tobacco Use Types Packs/Day Years Used Date Smoking Tobacco: Never Assessed Sex and Gender Information Value Date Recorded Sex Assigned at Not on file Legal Sex Male 5:45 PM CDT Gender Identity Not on file Sexual Orientation Not on file documented as of this encounter Miscellaneous Notes * Cerner Conversion Note - Eryn Arcos MD - 08/20/2019 12:32 PM HELICOPTER UTILITY AIRCREWMAN [facility] [place] [address] LORA JAIN [...] Up Instructions: Follow-up Dr. Allison 1 wk ([phone]) on Follow-Up Appointments Follow Up with WENDIE DONATO When 08/25/2019 11:45 AM EST Where: [address] [facility] [address] [place] [address]- Business (1) Follow Up with LION ALLISON MD-ORT When 08/25/2019 12:00 AM EST Comments call to schedule time of appointment on , 2019 Where: [address] [place] [address]- Medications What How Much When [...] a patient of Dr. Allison or Dr. Haskisn, call [phone] If you are a patient of Dr. Coello, call [phone] Nurse Navigator: Sil Rodriguez Office: [phone]; ; available during regular business hours Total Knee Replacement, Care After These instructions give you information about caring for yourself after your procedure. Your doctor may also give you more specific instructions. Call your doctor if you have any problems or questions after your procedure. Follow these instructions at home: Medicines ??? Take nwib-fhf-wlicxsb and prescription medicines only as told by [...] cannot use soap and water, use hand repair servicer. ? Change your bandage as told by [...] 10/11/2012 Document Revised: 09/07/2017 Document Reviewed: 06/25/2016 [employer] Patient Education ?? 2019 [employer] gabapentin (GA ba PEN tin) Gralise, [...] are a day sleeper or work a shift lab technician. Some people have thoughts about suicide while [...] may report side effects to FDA at 9-497-JQF-5840. What other drugs will affect gabapentin? Taking gabapentin with other drugs that make you sleepy can worsen this effect. Ask your doctor before taking a sleeping pill, narcotic medication, muscle relaxer, or medicine for anxiety, depression, or seizures. Other drugs may interact with gabapentin, including prescription and abnu-ttf-ztnxhsm medicines, vitamins, and herbal products. Tell your [...] to ensure that the information provided by [employer]. ('[employer]') is accurate, up-to-date, and complete, but no guarantee is made to that effect. Drug information contained herein may be time sensitive. [employer] information has been compiled for use by healthcare practitioners and consumers in the [place] and therefore [employer] does not warrant that uses outside of the [place] are appropriate, unless specifically indicated otherwise. [employer] drug information does not endorse drugs, diagnose patients or recommend therapy. [employer] drug information is an informational resource designed [...] effective or appropriate for any given patient. [employer] does not assume any responsibility for any aspect of healthcare administered with the aid of information [employer] provides. The information contained herein is not intended to cover all possible uses, directions, precautions, warnings, drug interactions, allergic reactions, or adverse effects. If you have questions about the drugs you are taking, check with your doctor, nurse or pharmacist. Copyright 7202-8433 [employer]. Version: 14.. Revision Date: 05/12/2017. amoxicillin (am [...] is sometimes used with a stomach acid inventory management specialist called lansoprazole (Prevacid). There are many brands [...] may report side effects to FDA at 2-449-ZIE-8459. What other drugs will affect amoxicillin? Other drugs may interact with amoxicillin, including prescription and fbjf-anp-eedqgwz medicines, vitamins, and herbal products. Tell each [...] to ensure that the information provided by [employer] ('[employer]') is accurate, up-to-date, and complete, but no guarantee is made to that effect. Drug information contained herein may be time sensitive. [employer] information has been compiled for use by healthcare practitioners and consumers in the [place] and therefore [employer] does not warrant that uses outside of the [place] are appropriate, unless specifically indicated otherwise. [employer] drug information does not endorse drugs, diagnose patients or recommend therapy. [employer] drug information is an informational resource designed [...] effective or appropriate for any given patient. [facility] does not assume any responsibility for any aspect of healthcare administered with the aid of information [facility] provides. The information contained herein is not intended to cover all possible uses, directions, precautions, warnings, drug interactions, allergic reactions, or adverse effects. If you have questions about the drugs you are taking, check with your doctor, nurse or pharmacist. Copyright 4623-0187 [facility]. Version: 9.05. Revision Date: 02/22/2016. aspirin (oral) [...] What is aspirin? Aspirin is a salicylate (ou-ETQ-nt-ate). It works by reducing substances in the [...] may report side effects to FDA at 2-115-JET-1854. What other drugs will affect aspirin? Ask [...] drugs may affect aspirin, including prescription and fgft-dfu-kczoihd medicines, vitamins, and herbal products. Not all [...] to ensure that the information provided by [employer] ('[employer]') is accurate, up-to-date, and complete, but no guarantee is made to that effect. Drug information contained herein may be time sensitive. [employer] information has been compiled for use by healthcare practitioners and consumers in the [place] and therefore [employer] does not warrant that uses outside of the [place] are appropriate, unless specifically indicated otherwise. [employer] drug information does not endorse drugs, diagnose patients or recommend therapy. [employer] drug information is an informational resource designed [...] effective or appropriate for any given patient. [facility] does not assume any responsibility for any aspect of healthcare administered with the aid of information [facility] provides. The information contained herein is not intended to cover all possible uses, directions, precautions, warnings, drug interactions, allergic reactions, or adverse effects. If you have questions about the drugs you are taking, check with your doctor, nurse or pharmacist. Copyright 6080-5882 [employer] [facility] [employer]. Version: .. Revision Date: 11/02/2017. ferrous gluconate [...] may report side effects to FDA at 4-283-NAV-3459. What other drugs will affect ferrous gluconate? Other drugs may interact with ferrous gluconate, including prescription and lbyk-psx-ngofpqp medicines, vitamins, and herbal products. Tell your [...] to ensure that the information provided by [employer]. ('[employer]') is accurate, up-to-date, and complete, but no guarantee is made to that effect. Drug information contained herein may be time sensitive. [employer] information has been compiled for use by healthcare practitioners and consumers in the [place] and therefore [employer] does not warrant that uses outside of the [place] are appropriate, unless specifically indicated otherwise. [employer] drug information does not endorse drugs, diagnose patients or recommend therapy. [employer] drug information is an informational resource designed [...] effective or appropriate for any given patient. [employer] does not assume any responsibility for any aspect of healthcare administered with the aid of information [employer] provides. The information contained herein is not intended to cover all possible uses, directions, precautions, warnings, drug interactions, allergic reactions, or adverse effects. If you have questions about the drugs you are taking, check with your doctor, nurse or pharmacist. Copyright 1420-0750 [employer]. Version: 2.01. Revision Date: 04/28/2017. acetaminophen and [...] may report side effects to FDA at 7-513-SLU-0414. What other drugs will affect acetaminophen and [...] affect acetaminophen and oxycodone, including prescription and uefi-ynr-rdutjdf medicines, vitamins, and herbal products. Not all [...] to ensure that the information provided by [employer]. ('[employer]') is accurate, up-to-date, and complete, but no guarantee is made to that effect. Drug information contained herein may be time sensitive. [employer]ia information has been compiled for use by healthcare practitioners and consumers in the [place] and therefore [employer] does not warrant that uses outside of the [place] are appropriate, unless specifically indicated otherwise. [employer] drug information does not endorse drugs, diagnose patients or recommend therapy. [employer] drug information is an informational resource designed [...] effective or appropriate for any given patient. [employer] does not assume any responsibility for any aspect of healthcare administered with the aid of information [employer] provides. The information contained herein is not intended to cover all possible uses, directions, precautions, warnings, drug interactions, allergic reactions, or adverse effects. If you have questions about the drugs you are taking, check with your doctor, nurse or pharmacist. Copyright 6203-8705 [employer]. Version: 18.02. Revision Date: 06/30/2018. docusate (oral/rectal) [...] on filedocumented in this encounter Care Teams Mail Handler Sorter Relationship Specialty Start Date End Date Alfredo Lackey MD [address] [place] [address] PCP - General Adolescent Medicine 10/16/22 10/19/22 Alfredo Lackey MD [address] [place] [address] PCP - General Adolescent Medicine 10/20/22 documented as of this encounter
--- OUTSIDE RECORDS SUMMARY | 2025-05-17 10:07 | XMS_ITS | Encounter Summary ---
Author Organization [employer] ([place], [place], [place], [place]) Address [address] [facility] [place] [address] Care Team Providers Care Lead Php Developer Name Role Phone Alfredo Aguiar MD Primary Care Provider + [phone] Alfredo Aguiar MD Primary Care Provider + [phone] Encounter Details Date Type Department Care Team (Late st Contact Info) Description 05/21/[address] [facility] [address] [place] [address] Lion Allison MD [address] [place] [address] Social History Tobacco Use Types Packs/Day Years [...] Author: LION ALLISON MD-ORT [facility] Ortho Progress Note SUBJECTIVE No events. Pain [...] filedocumented in this encounter Care Teams Lead Php Developer Relationship Specialty Start Date End Date Alfredo Aguiar MD [address] [place] [address] PCP - General Adolescent Medicine 10/16/22 10/19/22 Alfredo Aguiar MD [address] [place] [address] PCP - General Adolescent Medicine 10/20/22 documented as of this encounter
--- OUTSIDE RECORDS SUMMARY | 2025-05-17 10:07 | XMS_ITS | Encounter Summary ---
Author Organization [employer] ([place], [place], [place], [place]) Address [address] [place] [address] Care Team Providers Care Tongsman Name Role Phone Alfredo Aguiar MD Primary Care Provider + [phone] Alfredo Aguiar MD Primary Care Provider [phone] Encounter Details Date Type Department Care Team (Late st Contact Info) Description 08/20/2019 Transcribed Document [facility] [place] [address] ProviderEryn MD [address] [place] [address] Social History Tobacco Use Types Packs/Day Years Used Date Smoking Tobacco: Never Assessed Sex and Gender Information Value Date Recorded Sex Assigned at Not on file Legal Sex Male 5:45 PM CDT Gender Identity Not on file Sexual Orientation Not on file documented as of this encounter Miscellaneous Notes * Cerner Conversion Note - Eryn ProviderMD - 08/20/2019 12:28 PM ELECTRONIC INSTRUMENT TRADES WORKER Stroke/Warfarin Instructions Entered On: 08/20/2019 12:28 EST Performed On: 08/20/2019 12:28 EST by KASSANDRA MEADOWS LPN Stroke/Warfarin Instructions Stroke/TIA Discharge Ins : N/A Warfarin Discharge Ins : N/A KASSANDRA MEADOWS LPN - 08/20/2019 12:28 EST Electronically signed by Radha Paris Conversion X Ray Control Equipment Repairer Cerner at 11/18/2022 9:35 AM CDT documented in this encounter Plan of Treatment Not on file documented as of this encounter Visit Diagnoses Not on filedocumented in this encounter Care Teams Tongsman Relationship Specialty Start Date End Date Alfredo Aguiar MD [address] [place] [address] PCP - General Adolescent Medicine 10/16/22 10/19/22 Alfredo Aguiar MD [address] [place] [address] PCP - General Adolescent Medicine 10/20/22 documented as of this encounter
--- OUTSIDE RECORDS SUMMARY | 2025-05-17 10:07 | XMS_ITS | Encounter Summary ---
Author Organization [employer] ([place], [place], [place], [place]) Address [address] [place] [address] Care Team Providers Care Operations Label Clerk Name Role Phone Alfredo Aguiar MD Primary Care Provider + [phone] Alfredo Aguiar MD Primary Care Provider + [phone] Encounter Details Date Type Department Care Team (Late st Contact Info) Description 05/23/2019 Transcribed Document [facility] [place] [facility] [place] [address] ProviderEryn MD [address] [place] [address] Social History Tobacco Use Types Packs/Day Years Used Date Smoking Tobacco: Never Assessed Sex and Gender Information Value Date Recorded Sex Assigned at Not on file Legal Sex Male 5:45 PM CDT Gender Identity Not on file Sexual Orientation Not on file documented as of this encounter Miscellaneous Notes * Harjinderner Conversion Note - Eryn ProviderMD - 05/23/2019 2:00 AM CDT Insurance Clerk Details Entered On: 05/23/2019 5:19 EDT Performed [...] filedocumented in this encounter Care Teams Operations Label Clerk Relationship Specialty Start Date End Date Alfredo Aguiar MD [address] [place] [address] PCP - General Adolescent Medicine 10/16/22 10/19/22 Alfredo Aguiar MD [address] [place] [address] PCP - General Adolescent Medicine 10/20/22 documented as of this encounter
--- OUTSIDE RECORDS SUMMARY | 2025-05-17 10:07 | XMS_ITS | Encounter Summary ---
Author Organization [employer] ([place], [place], [place], [place]) Address [address] [place] [address] Care Team Providers Care Disease Management Nurse Name Role Phone Alfredo Aguiar MD Primary Care Provider + [phone] Alfredo Aguiar MD Primary Care Provider + [phone] Encounter Details Date Type Department Care Team (Late st Contact Info) Description 05/23/2019 Transcribed Document [facility] [place] [facility] [place] [address] ProviderEryn MD [address] [place] [address] Social History Tobacco Use Types Packs/Day Years [...] speaking or understanding Electronically signed by [place] [facility] Conversion Engine Designer Cerner at 11/18/2022 9:27 AM CDT documented in this encounter Plan of Treatment Not on file documented as of this encounter Visit Diagnoses Not on filedocumented in this encounter Care Teams Disease Management Nurse Relationship Specialty Start Date End Date Alfredo Aguiar MD [address] [place] [address] PCP - General Adolescent Medicine 10/16/22 10/19/22 Alfredo Aguiar MD [address] [place] [address] PCP - General Adolescent Medicine 10/20/22 documented as of this encounter
--- OUTSIDE RECORDS SUMMARY | 2025-05-17 10:07 | XMS_ITS | Encounter Summary ---
Author Organization [employer] ([place], [place], [place], [place]) Address [address] [place] [address] Care Team Providers Care Advertising Copywriter Name Role Phone Alfredo Aguiar MD Primary Care Provider + [phone] Alfredo Aguiar MD Primary Care Provider + [phone] Encounter Details Date Type Department Care Team (Late st Contact Info) Description 05/21/2019 Transcribed Document [facility] Family Medicine [facility] [place] [address] ProviderEryn MD [address] [place] [address] Social History Tobacco Use Types Packs/Day Years [...] on filedocumented in this encounter Care Teams Advertising Copywriter Relationship Specialty Start Date End Date Alfredo Aguiar MD [address] [place] [address] PCP - General Adolescent Medicine 10/16/22 10/19/22 Alfredo Aguiar MD [address] [place] [address] PCP - General Adolescent Medicine 10/20/22 documented as of this encounter
--- OUTSIDE RECORDS SUMMARY | 2025-05-17 10:07 | XMS_ITS | Encounter Summary ---
Author Organization [employer] ([place], [place], [place], [place]) Address [address] [place] [address] Care Team Providers Care Mallet And Die Cutter Name Role Phone Alfredo Aguiar MD Primary Care Provider + [phone] Alfredo Aguiar MD Primary Care Provider + [phone] Encounter Details Date Type Department Care Team (Late st Contact Info) Description 05/23/2019 Transcribed Document [facility] Family Medicine [facility] [place] [address] ProviderEryn MD [address] [place] [address] Social History Tobacco Use Types Packs/Day Years [...] called report to sam at 1540 at [facility] ADITYA CRUMP RN - 05/23/2019 15:40 EDT Electronically signed by [facility] Conversion Branch Services Manager Harjinderner at 11/18/2022 9:13 AM CDT documented in this encounter Plan of Treatment Not on file documented as of this encounter Visit Diagnoses Not on filedocumented in this encounter Care Teams Mallet And Die Cutter Relationship Specialty Start Date End Date Alfredo Aguiar MD [address] [place] [address] PCP - General Adolescent Medicine 10/16/22 10/19/22 Alfredo Aguiar MD [address] [place] [address] PCP - General Adolescent Medicine 10/20/22 documented as of this encounter
--- OUTSIDE RECORDS SUMMARY | 2025-05-17 10:07 | XMS_ITS | Encounter Summary ---
Author Organization [employer] ([place], [place], [place], [place]) Address [address] [place] [address] Care Team Providers Care Tnt Powder Worker Name Role Phone Alfredo Aguiar MD Primary Care Provider + [phone] Alfredo Aguiar MD Primary Care Provider + [phone] Encounter Details Date Type Department Care Team (Late st Contact Info) Description 08/18/2019 Transcribed Document [facility] Family [place] [address] ProviderEryn MD [address] [place] [address] Social History Tobacco Use Types Packs/Day Years Used Date Smoking Tobacco: Never Assessed Sex and Gender Information Value Date Recorded Sex Assigned at Not on file Legal Sex Male 5:45 PM CDT Gender Identity Not on file Sexual Orientation Not on file documented as of this encounter Miscellaneous Notes * Cerner Conversion Note - Eryn ProviderMD - 08/18/2019 6:00 PM MACHINE CELL TUBER Pain Assessment Entered On: 08/18/2019 21:08 EST [...] on filedocumented in this encounter Care Teams Tnt Powder Worker Relationship Specialty Start Date End Date Alfredo Aguiar MD [address] [place] [address] PCP - General Adolescent Medicine 10/16/22 10/19/22 Alfredo Aguiar MD [address] [place] [address] PCP - General Adolescent Medicine 10/20/22 documented as of this encounter
--- OUTSIDE RECORDS SUMMARY | 2025-05-17 10:07 | XMS_ITS | Clinical Summary ---
Author Organization [facility] Address [address] [place] [address] Care Team Providers Care Lens Generator Name Role Phone Alfredo Aguiar MD Primary Care Provider [phone] Allergies No known active allergies Medications rosuvastatin (Crestor) 20 MG tablet every day. 1 Active lisinopril 5 MG tablet Take 0.5 tablets (2.5 mg) by mouth 1 (one) time each day. Active aspirin 81 MG EC tablet Take 1 tablet (81 mg) by mouth 1 (one) time each day. Active Viibryd 40 MG tablet every day. 1 Active omeprazole (PriLOSEC) [address] capsule BID. 1 Active Tiotropium [place] Monohydrate (SPIRIVA RESPIMAT IN) 2 puffs every day. Active Multiple Vitamins-Mineral s (RA VISION-RENARD PRESERVE PO) Take by mouth. 2 tablets bid Active clopidogrel (Plavix) 75 MG tablet 3 Active insulin pen needle (B-D ULTRAFINE III SHORT PEN) 31G X 8 mm misc Use 4 per day to inject insulin 400 each 3 3 Active pantoprazole (ProtoNix) 20 MG EC tablet 3 Active bisoprolol (Zebeta) 5 MG tablet Take 0.5 tablets (2.5 mg) by mouth 1 (one) time each day. 3 Active cyanocobalamin 100 MCG tablet Take 1 tablet (100 mcg) by mouth 1 (one) time each day. Active Methylcobalamin 1000 MCG sublingual tablet 1 (one) time each day. 3 Active ergocalciferol 1.25 MG (60819 UT) capsuleIndicatio ns:Vitamin D deficiency Take 1 capsule (50,000 Units) by mouth 1 (one) time per week. 8 capsule 4 Active [facility] [employer] GUMMY BEARS CHILDREN PO Take by mouth. Activ e Spiriva Respimat 2.5 MCG/ACT inhaler 4 Active chlorhexidine (Peridex) 0.12 % solution FILL SUPPLIED CUP (ONE-HALF OUNCE); SWISH IN MOUTH FOR 30 SECONDS TWICE DAILY (AFTER toothbrushing). SWISH THEN EXPEL REMAINDER OR USE DIRECTED 4 Active HYDROcodone-acet aminophen (Atwood) 5-325 MG tablet TAKE ONE TABLET BY MOUTH EVERY 6 HOURS NEEDED FOR PAIN MAY CAUSE DROWSINESS 4 Active insulin aspart (NovoLOG FLEXPEN) 100 UNIT/ML injection pen INJECT 10 UNITS UNDER THE SKIN THREE TIMES A DAY BEFORE MEALS PLUS CORRECTION 1:40 GREATER THAN 150, MAXIMUM DAILY DOSE OF 60 UNITS 60 mL 5 Active insulin glargine (Lantus SoloStar, Basaglar) 100 UNIT/ML injection pen Inject 24 Units under the skin every morning. 30 mL 3 5 04/27/20 26 Active Jardiance 10 MG TAKE 1 TABLET DAILY 90 tablet 5 Active triamcinolone (Kenalog) 0.1 % ointment 5 Active fluticasone (Flonase) 50 MCG/ACT nasal spray Administer 1 spray into each nostril daily. Shake gently. Before first use, prime pump. After use, clean tip and replace cap. Active Active Problems Problem Noted Date Diagnosed Date Class 1 obesity with serious comorbidity and body mass index (BMI) of 30.0 to 30.9 in adult 02/26/2022 Essential hypertension 12/05/2014 Type 2 diabetes mellitus wit h hyperglycemia, with long-term current use of insulin 01/31/2014 Hyperlipidemia 02/08/2013 Encounters Date Type Department Care Team Description 04/24/2025 8:45 AM EDT Office Visit [facility] [address] [place] [address] [place], Rosa S, OD Type 2 diabetes mellitus with hyperglycemia, with long-term current use of insulin ([facility]) (Primary Dx); Myopia of both eyes; Presbyopia 04/24/2025 Travel 04/10/2025 Refill [facility] [address] [place] [address] Neena Fields, BORING MACHINE OPERATOR from Last 3 Months Immunizations Immunization Administration [...] Office Visit [facility] [address] [place] [address] Neena Fields, BORING MACHINE OPERATOR [address] [place] [address] Health Maintenance Due Date Last Done Comments [facility]-Bone Density Scan 1938 [facility]-Depression Screening 1938 [facility]-Medicare Annual Wellness (AWV) 1938 [facility]-Infant/Child/Adol SDOH Screenings 1938 Diabetes: Dental Exam 1948 [facility]- SDOH Screenings 1956 [facility]-Adult SDOH Screenings 1956 [facility]-Pneumococcal Vaccine: 50+ Years (1 of 2 - PCV) 1957 [id number] Vaccine (7 - Moderna risk 2023- season) [...] hyperglycemia, with long-term current use of insulin ([facility]) from Last 3 Months or Most Recently Relevant to Health Maintenance Results * POCT glycosylated hemoglobin (Hb A1C) (02/01/2025 12:38 PM EDT) POCT Hemoglobin A1C 8.4 <5.7% Non-Diabe tic % [facility] Kit Lot Number [id number] [facility] Kit Expiration Date 11/30/2026 [facility] Blood Venous blood specimen / Unknown 02/01/2025 12:38 PM EDT Neena Fields BORING MACHINE OPERATOR POINT OF CARE TEST ENTER/KATIE T ORDERABLES Final Result Performing Organization Address City/State/[facility] Co de Phone Number [facility] [address] [place] [phone] from Last 3 Months or Most Recently Relevant to Health Maintenance [place] [address] Advance Directives Documents on File Type Date Recorded Patient Rehabilitation Therapist Expl anation Advance Directives and Living Will 10/24/2022 Living Will and Surrogate Care Teams Lens Generator Relationship Specialty Start Date End Date Alfredo Aguiar MD [address] [place] [address] PCP - General 12/14/20
--- OUTSIDE RECORDS SUMMARY | 2025-05-17 10:07 | XMS_ITS | Encounter Summary ---
Author Organization [employer] ([place], [place], [place], [place]) Address [address] [place] [address] Care Team Providers Care Athletic Coordinator Name Role Phone Alfredo Aguiar MD Primary Care Provider + [phone] Alfredo Aguiar MD Primary Care Provider + [phone] Encounter Details Date Type Department Care Team (Late st Contact Info) Description 08/20/2019 Transcribed Document [facility] [place] [facility] [place] [address] ProviderEryn MD [address] [place] [address] Social History Tobacco Use Types Packs/Day Years Used Date Smoking Tobacco: Never Assessed Sex and Gender Information Value Date Recorded Sex Assigned at Not on file Legal Sex Male 5:45 PM CDT Gender Identity Not on file Sexual Orientation Not on file documented as of this encounter Miscellaneous Notes * Cerner Conversion Note - Eryn Arcos MD - 08/20/2019 12:29 PM MEDICAL STAFF SERVICES COORDINATOR Nursing Discharge Summary Entered On: 08/20/2019 12:31 EST Performed On: 08/20/2019 12:29 EST by KASSANDRA MEADOWS LPN Discharge Documentation Discharge Date/Time : 08/20/2019 13:00 EST Patient Disposition, General : Discharge Discharge To : Rehabilitation unit/facility Name of Receiving Facility/Provider : [facility] Mode Of Departure, General Discharge : Private [...] - 08/20/2019 12:29 EST Electronically signed by [facility], [facility] Conversion Recreation Coordinator Cerner at 11/18/2022 9:15 AM CDT documented in this encounter Plan of Treatment Not on file documented as of this encounter Visit Diagnoses Not on filedocumented in this encounter Care Teams Athletic Coordinator Relationship Specialty Start Date End Date Alfredo Aguiar MD [address] [place] [address] PCP - General Adolescent Medicine 10/16/22 10/19/22 Alfredo Aguiar MD [address] [place] [address] PCP - General Adolescent Medicine 10/20/22 documented as of this encounter
--- OUTSIDE RECORDS SUMMARY | 2025-05-17 10:07 | XMS_ITS | Encounter Summary ---
Author Organization [employer] ([place], [place], [place], [place]) Address [address] [place] [address] Care Team Providers Care Control Integration Engineer Name Role Phone Alfredo Aguiar MD Primary Care Provider + [phone] Alfredo Aguiar MD Primary Care Provider + [phone] Encounter Details Date Type Department Care Team (Late st Contact Info) Description 05/23/2019 Transcribed Document [facility] [place] [facility] [place] [address] ProviderEryn MD [address] [place] [address] Social History Tobacco Use Types Packs/Day Years [...] placement--on order 5. Discharge to rehabilitation UM/DEREK: [facility]--D/w CM about changes to prior instructions sent. 1. Make sure he gets his dose of Rocephin 2 GM IV before discharge 2. Make sure he gets PICC placement today 3. He will need Rocephin 2 GM IV daily for 6 weeks. [facility] doctor will need to see him at [facility]. D/w Dr. Rob Pollard with our group. [...] on filedocumented in this encounter Care Teams Control Integration Engineer Relationship Specialty Start Date End Date Alfredo Aguiar MD [address] [place] [address] PCP - General Adolescent Medicine 10/16/22 10/19/22 Alfredo Aguiar MD [address] [place], [place] [address] PCP - General Adolescent Medicine 10/20/22 documented as of this encounter
--- OUTSIDE RECORDS SUMMARY | 2025-05-17 10:07 | XMS_ITS | Encounter Summary ---
Author Organization [employer] ([place], [place], [place], [place]) Address [address] [place] [address] Care Team Providers Care Senior Manufacturing Test Engineer Name Role Phone Alfredo Aguiar MD Primary Care Provider + [phone] Alfredo Aguiar MD Primary Care Provider + [phone] Encounter Details Date Type Department Care Team (Late st Contact Info) Description 05/21/2019 Transcribed Document [facility] [place] [facility] [place] [address] ProviderEryn MD [address] [place] [address] Social History Tobacco Use Types Packs/Day Years [...] Guillermo Estevez, PT - 05/23/2019 12:55 EDT Orthopedic Shoe Fitter Goals Mobility/Bed Mobility LTG PT Grid Goal [...] Anticipated Discharge to : Unit, rehabilitation, Unit, jail Recommend Continued Therapy at Discharge : Yes Guillermo Estevez, PT - 05/23/2019 12:[address] [facility] PT Charges Gait Training Each 15 Min : 1 Guillermo Estevez, PT - 05/23/2019 12:55 EDT Electronically signed by [facility], [facility] Conversion Wood Miller Cerner at 11/23/2022 1:10 PM CDT documented in this encounter Plan of Treatment Not on file documented as of this encounter Visit Diagnoses Not on filedocumented in this encounter Care Teams Senior Manufacturing Test Engineer Relationship Specialty Start Date End Date Alfredo Aguiar MD [address] [place] [address] PCP - General Adolescent Medicine 10/16/22 10/19/22 Alfredo Aguiar MD [address] [place] [address] PCP - General Adolescent Medicine 10/20/22 documented as of this encounter
--- OUTSIDE RECORDS SUMMARY | 2025-05-17 10:07 | XMS_ITS | Encounter Summary ---
Author Organization [facility] ([place], [place], [place], [place]) Address [address] [place] [address] Care Team Providers Care Lead Network Architect Name Role Phone Alfredo Lackey MD Primary Care Provider + [phone] Alfredo Lackey MD Primary Care Provider + [phone] Encounter Details Date Type Department Care Team (Late st Contact Info) Description 05/23/2019 Transcribed Document [facility] Family Medicine [facility] [place] [address] ProviderEryn MD [address] [place] [address] Social History Tobacco Use Types Packs/Day Years [...] Date 05/23/2019 Primary Care Provider ALFREDO LACKEY (REF)[facility] Discharge Diagnosis Left total knee arthroplasty resection [...] no output. Knee lagging extension Discharge Disposition long-term facility Discharge Follow Up 3 weeks, [facility] Discharge Medications (13) Active bisoprolol 5 [...] Oral, Q4H Rocephin 2 Gram, IV Piggyback, [id number] duration per ID at [facility] Spiriva Respimat 2.5 mcg/inh inhalation aerosol 2 [...] -- Start: 05/21/19 14:11:00 EDT, 60 gm [id number] randa, Isolation: Standard Precautions, Instructions: Diabetic Diet [...] Label By Order Location Electronically signed by [facility], [facility] Conversion Grain Elevator Superintendent Cerner at 11/18/2022 9:27 AM CDT documented in this encounter Plan of Treatment Not on file documented as of this encounter Visit Diagnoses Not on filedocumented in this encounter Care Teams Lead Network Architect Relationship Specialty Start Date End Date Alfredo Lackey MD [address] [place] [address] PCP - General Adolescent Medicine 10/16/22 10/19/22 Alfredo Lackey MD [address] [place] [address] PCP - General Adolescent Medicine 10/20/22 documented as of this encounter
--- OUTSIDE RECORDS SUMMARY | 2025-05-17 10:07 | XMS_ITS | Encounter Summary ---
Author Organization [employer] ([place], [place], [place], [place]) Address [address] [place] [address] Care Team Providers Care Remanufacturing Technician Name Role Phone Alfredo Aguiar MD Primary Care Provider + [phone] Alfredo Aguiar MD Primary Care Provider + [phone] Encounter Details Date Type Department Care Team (Late st Contact Info) Description 05/21/2019 Transcribed Document [facility] [place] [facility] [place] [address] ProviderEryn MD [address] [place] [address] Social History Tobacco Use Types Packs/Day Years [...] Performed On: 05/21/2019 13:56 EDT by PREETHI LLNAOS, PT Attempt to Treat Unable to Treat Due To : Patient Unavailable Inability to Treat Comment : MD in room having lengthy converstaion with patient Notification : RN PREETHI LLANOS, PT - 05/21/2019 13:56 EDT Electronically signed by [facility] Conversion Truck Headlight Assembler Cerner at 11/18/2022 9:22 AM CDT documented in this encounter Plan of Treatment Not on file documented as of this encounter Visit Diagnoses Not on filedocumented in this encounter Care Teams Remanufacturing Technician Relationship Specialty Start Date End Date Alfredo Aguiar MD [address] [place] [address] PCP - General Adolescent Medicine 10/16/22 10/19/22 Alfredo Aguiar MD [address] [place] [address] PCP - General Adolescent Medicine 10/20/22 documented as of this encounter
--- OUTSIDE RECORDS SUMMARY | 2025-05-17 10:07 | XMS_ITS | Encounter Summary ---
Author Organization [employer] ([place], [place], [place], [place]) Address [address] [place] [address] Care Team Providers Care Child Development Teacher Name Role Phone Alfredo Lackey MD Primary Care Provider + [phone] Alfredo Lackey MD Primary Care Provider + [phone] Encounter Details Date Type Department Care Team (Late st Contact Info) Description 05/23/2019 Transcribed Document [facility] [place] [facility] [place] [address] ProviderEryn MD [address] [place] [address] Social History Tobacco Use Types [...] Arcos MD - 05/23/2019 3:41 PM CDT [facility] [place] [address] LORA JAIN JR :1940 Visit Time:05/20/2019 Your Visit Summary Your Care Team Admitting Physician - LION DAVIS MD-ORT Attending Physician - LION DAVIS MD-ORElizabeth Primary Care Physician - ALFREDO LACKEY (REF[facility] Referring Physician - LION DAVIS MD-ORT [...] When 05/31/2019 11:15 AM EDT Where: [address] [facility] [address] [place] [address]- Follow Up with LION DAVIS MD-ORT When Within 3 weeks [facility] [address] [facility] [place] [address]- Medications What How Much When [...] medicines at the same time (including some jjse-lsd-nnyajmv medicines). It is very important to tell [...] may report side effects to FDA at 4-919-YYJ-0404. What other drugs will affect apixaban? Sometimes it is not safe to use certain medications at the same time. Some drugs can affect your blood levels of other drugs you take, which may increase side effects or make the medications less effective. Many other drugs (including some hctg-wlr-xinkrpt medicines) can increase your risk of bleeding [...] ?? an NSAID (nonsteroidal anti-inflammatory drug) used watermaster. This list is not complete and many other drugs may affect apixaban. This includes prescription and jlic-idw-tabannk medicines, vitamins, and herbal products. Not all [...] to ensure that the information provided by [employer]. ('[employer]') is accurate, up-to-date, and complete, but no guarantee is made to that effect. Drug information contained herein may be time sensitive. [employer] information has been compiled for use by healthcare practitioners and consumers in the [place] and therefore [employer] does not warrant that uses outside of the [place] are appropriate, unless specifically indicated otherwise. [employer]'s drug information does not endorse drugs, diagnose patients or recommend therapy. [employer] drug information is an informational resource designed [...] effective or appropriate for any given patient. [employer] does not assume any responsibility for any aspect of healthcare administered with the aid of information [employer] provides. The information contained herein is not intended to cover all possible uses, directions, precautions, warnings, drug interactions, allergic reactions, or adverse effects. If you have questions about the drugs you are taking, check with your doctor, nurse or pharmacist. Copyright 6494-5245 [employer]. Version: 4.01. Revision Date: 01/21/2019. docusate (oral/rectal) [...] may report side effects to FDA at 4-283-RSX-3291. What other drugs will affect docusate? Other drugs may affect docusate, including prescription and tzwy-ndj-yhdunyj medicines, vitamins, and herbal products. Tell your [...] to ensure that the information provided by [employer]. ('[employer]') is accurate, up-to-date, and complete, but no guarantee is made to that effect. Drug information contained herein may be time sensitive. [employer] information has been compiled for use by healthcare practitioners and consumers in the [place] and therefore [employer] does not warrant that uses outside of the [place] are appropriate, unless specifically indicated otherwise. [employer] drug information does not endorse drugs, diagnose patients or recommend therapy. [employer] drug information is an informational resource designed [...] effective or appropriate for any given patient. [employer] does not assume any responsibility for any aspect of healthcare administered with the aid of information [employer] provides. The information contained herein is not intended to cover all possible uses, directions, precautions, warnings, drug interactions, allergic reactions, or adverse effects. If you have questions about the drugs you are taking, check with your doctor, nurse or pharmacist. Copyright 6373-3570 [employer]. Version: 4.01. Revision Date: 02/07/2019. acetaminophen and [...] may report side effects to FDA at 8-779-QYX-4280. What other drugs will affect acetaminophen and [...] affect acetaminophen and oxycodone, including prescription and kxoc-rxr-afnsayj medicines, vitamins, and herbal products. Not all [...] to ensure that the information provided by [employer]. ('[employer]') is accurate, up-to-date, and complete, but no guarantee is made to that effect. Drug information contained herein may be time sensitive. [employer] information has been compiled for use by healthcare practitioners and consumers in the [place] and therefore [employer] does not warrant that uses outside of the [place] are appropriate, unless specifically indicated otherwise. [employer] drug information does not endorse drugs, diagnose patients or recommend therapy. [employer] drug information is an informational resource designed [...] effective or appropriate for any given patient. [employer] does not assume any responsibility for any aspect of healthcare administered with the aid of information [employer] provides. The information contained herein is not intended to cover all possible uses, directions, precautions, warnings, drug interactions, allergic reactions, or adverse effects. If you have questions about the drugs you are taking, check with your doctor, nurse or pharmacist. Copyright 4289-4541 [employer]. Version: 18.02. Revision Date: 06/30/2018. ferrous sulfate [...] may report side effects to FDA at 2-481-TBU-7149. What other drugs will affect ferrous sulfate? [...] all medications you use. This includes prescription, zgdu-eur-dctpxfp, vitamin, and herbal products. Do not start [...] to ensure that the information provided by [employer]. ('[employer]') is accurate, up-to-date, and complete, but no guarantee is made to that effect. Drug information contained herein may be time sensitive. [employer] information has been compiled for use by healthcare practitioners and consumers in the [place] and therefore [employer] does not warrant that uses outside of the [place] are appropriate, unless specifically indicated otherwise. [employer]'s drug information does not endorse drugs, diagnose patients or recommend therapy. [employer] drug information is an informational resource designed [...] effective or appropriate for any given patient. [employer] does not assume any responsibility for any aspect of healthcare administered with the aid of information [employer] provides. The information contained herein is not intended to cover all possible uses, directions, precautions, warnings, drug interactions, allergic reactions, or adverse effects. If you have questions about the drugs you are taking, check with your doctor, nurse or pharmacist. Copyright 9472-0872 [employer]. Version: 4.03. Revision Date: 10/31/2011. Emergency Awareness [...] Assistance with quitting is available by contacting 8-402-ASPPMELA SciencesNOW. This is a free resource providing counseling, [...] range between ( 0.0 and 7.0 ) Clinch #: 0.62 K/uL -- Normal range between ( 0.16 and 1.00 ) Eos #: 0.04 x10(3)/uL -- Normal range between ( 0.00 and 0.80 ) Clinch %: 5.9 % -- Normal range between [...] was given the opportunity to ask questions. Patient/Manuscript Editor Name: Patient/Manuscript Editor Signature: Relationship to Patient: Clinician/Hospital Manuscript Editor Signature: Date: documented in this encounter Plan of Treatment Not on file documented as of this encounter Visit Diagnoses Not on filedocumented in this encounter Care Teams Child Development Teacher Relationship Specialty Start Date End Date Alfredo Lackey MD [address] [place] [address] PCP - General Adolescent Medicine 10/16/22 10/19/22 Alfredo Lackey MD [address] [place] [address] PCP - General Adolescent Medicine 10/20/22 documented as of this encounter
--- OUTSIDE RECORDS SUMMARY | 2025-05-17 10:07 | XMS_ITS | Encounter Summary ---
Author Organization [employer] ([place], [place], [place], [place]) Address [address] [place] [address] Care Team Providers Care Health Sciences Manager Name Role Phone Alfredo Aguiar MD Primary Care Provider + [phone] Alfredo Aguiar MD Primary Care Provider + [phone] Encounter Details Date Type Department Care Team (Late st Contact Info) Description 05/23/2019 Transcribed Document [facility] [place] Family [place] [facility] [place] [address] ProviderEryn MD [address] [place] [address] Social History Tobacco Use Types Packs/Day Years [...] : Yes Central Line Insertion Facility : [facility] Central Line Insertion Start Date/Time : 05/23/2019 10:50 EDT Central Catheter Type : Power injection PICC Central Line Lot Number : [id number] Central Line Vessel Cannulated : Brachial vein [...] 05/23/2019 11:27 EDT Electronically signed by Wellington [facility] Conversion Adobe Architect Cerner at 11/18/2022 9:32 AM CDT documented in this encounter Plan of Treatment Not on file documented as of this encounter Visit Diagnoses Not on filedocumented in this encounter Care Teams Health Sciences Manager Relationship Specialty Start Date End Date Alfredo Aguiar MD [address] [place] [address] PCP - General Adolescent Medicine 10/16/22 10/19/22 Alfredo Aguiar MD [address] [place] [address] [place] [address] PCP - General Adolescent Medicine 10/20/22 documented as of this encounter
--- OUTSIDE RECORDS SUMMARY | 2025-05-17 10:07 | XMS_ITS | Encounter Summary ---
Author Organization [employer] ([place], [place], [place], [place]) Address [address] [facility] [place] [address] Care Team Providers Care Compliance Lead Name Role Phone Alfredo Aguiar MD Primary Care Provider + [phone] Alfredo Aguiar MD Primary Care Provider + [phone] Encounter Details Date Type Department Care Team (Late st Contact Info) Description 08/20/[address] [facility] [address] [place] [address] Massimo Butterfield MD [address] [place] [address] Social History Tobacco Use Types Packs/Day [...] gas. [facility]. HPI: Patient is an 78 yo male admitted to [facility] per Dr. 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 - 03/24/2018 13:52 - HERMAN LARSEN, [...] regimen continue incentive spirometer PT/OT- inpatient at [facility] Pain management deferred to surgeon resume outpatient medication regimen for comorbidities assessment and treatment plan made in conjunction with Yissel Butterfield MD Scribed by Renetta Solomon documented in this encounter Plan of Treatment Not on file documented as of this encounter Visit Diagnoses Not on filedocumented in this encounter Care Teams Compliance Lead Relationship Specialty Start Date End Date Alfredo Aguiar MD [address] [place] [address] [place] [address] PCP - General Adolescent Medicine 10/16/22 10/19/22 Alfredo Aguiar MD [address] [place] [address] [place] [address] PCP - General Adolescent Medicine 10/20/22 documented as of this encounter
--- OUTSIDE RECORDS SUMMARY | 2025-05-17 10:07 | XMS_ITS | Encounter Summary ---
Author Organization [employer] ([place], [place], [place], [place]) Address [address] [place] [address] Care Team Providers Care Jack Prizer Name Role Phone Alfredo Aguiar MD Primary Care Provider + [phone] Alfredo Aguiar MD Primary Care Provider + [phone] Encounter Details Date Type Department Care Team (Late st Contact Info) Description 05/23/2019 Transcribed Document [facility] [place] Family Medicine [facility] [place] [address] ProviderEryn MD [address] [place] [address] Social History Tobacco Use Types Packs/Day Years [...] On: 05/23/2019 13:23 EDT by JUANY HERNANDEZ RN-Apricot Washer Final Discharge Planning Discharge Arrangements : Patient Post-Acute Information Patient Name: LORA VÁZQUEZ JR Gender: Male : [birth year] Age: 78 Years Justin Referral(s): Service: Organization: Business Address: Phone Number: [facility] [address] [place], [address] Patient Offered Choice/Affiliations Explained : Yes Designation of Choice Signed : Yes Important Medicare Message Reviewed With : Patient Important Medicare Message Reviewed D/T : 05/23/2019 8:30 EDT Transportation Needs : Wheelchair van Discharge Transportation Arrangement Cmt : ESTELLA Van @ [phone] Follow Up Appointment Scheduled : Yes Is Patient High/Moderate Readmission Risk? : No Patient/Family Notified of Plan : Yes Support Person/Pt Rep Notified of Plan : Yes Is Patient Ready for Discharge? : Yes Physician Notified Patient is Ready for Discharge? : Yes Discharge To Care Management : SNF with Medicare Certification-03 JUANY HERNANDEZ, RN-Apricot Washer - 05/23/2019 13:23 EDT Electronically signed by Wellington, [facility] Conversion Screen Printing Loader Unloader Cerner at 11/18/2022 9:26 AM CDT documented in this encounter Plan of Treatment Not on file documented as of this encounter Visit Diagnoses Not on filedocumented in this encounter Care Teams Jack Prizer Relationship Specialty Start Date End Date Alfredo Aguiar MD [address] [place] [address] PCP - General Adolescent Medicine 10/16/22 10/19/22 Alfredo Aguiar MD [address] [place] [address] PCP - General Adolescent Medicine 10/20/22 documented as of this encounter
--- OUTSIDE RECORDS SUMMARY | 2025-05-17 10:07 | XMS_ITS | Encounter Summary ---
Author Organization [employer] ([place], [place], [place], [place]) Address [address] [place] [address] Care Team Providers Care Purchasing Contracting Clerk Name Role Phone Alfredo Aguiar MD Primary Care Provider + [phone] Alfredo Aguiar MD Primary Care Provider + [phone] Encounter Details Date Type Department Care Team (Late st Contact Info) Description 05/23/[address] [facility] Family Medicine [facility] [place] [place] [address] ProviderEryn MD [address] [place] [address] Social History Tobacco Use Types Packs/Day Years [...] Summary Comment, PT : Pt discharging from [facility] to [facility]. Pt was able to ambulate 32' with [...] Guillermo Estevez, PT - 05/23/2019 16:01 EDT Pegger Goals Mobility/Bed Mobility LTG PT Grid Goal [...] 05/23/2019 16:01 EDT Electronically signed by Wellington [facility] Conversion Machine Operator Hop Picker Cerner at 11/18/2022 9:24 AM CDT documented in this encounter Plan of Treatment Not on file documented as of this encounter Visit Diagnoses Not on filedocumented in this encounter Care Teams Purchasing Contracting Clerk Relationship Specialty Start Date End Date Alfredo Aguiar MD [address] [place] [address] PCP - General Adolescent Medicine 10/16/22 10/19/22 Alfredo Aguiar MD [address] [place] [address] [place] [address] PCP - General Adolescent Medicine 10/20/22 documented as of this encounter
--- OUTSIDE RECORDS SUMMARY | 2025-05-17 10:07 | XMS_ITS | Encounter Summary ---
Author Organization [employer] ([place], [place], [place], [place]) Address [address] [place] [address] Care Team Providers Care Synchronizer Name Role Phone Alfredo Aguiar MD Primary Care Provider + [phone] Alfredo Aguiar MD Primary Care Provider + [phone] Encounter Details Date Type Department Care Team (Late st Contact Info) Description 08/20/2019 Transcribed Document [facility] [facility] [place] [address] ProviderEryn MD [address] [place] [address] Social History Tobacco Use Types Packs/Day Years Used Date Smoking Tobacco: Never Assessed Sex and Gender Information Value Date Recorded Sex Assigned at Not on file Legal Sex Male 5:45 PM CDT Gender Identity Not on file Sexual Orientation Not on file documented as of this encounter Miscellaneous Notes * Cerner Conversion Note - Eryn Arcos MD - 08/20/2019 12:26 PM TOWER AIR TRAFFIC CONTROL SPECIALIST Patient Education Materials Follows: Discharge Instructions for [...] of Dr. Allison or Dr. Haskins, call [phone] If you are a patient of Dr. Coello, call [phone] Nurse Navigator: Sil Rodriguez Office: [phone]; ; available during regular business hours Total Knee Replacement, Care After These instructions give you information about caring for yourself after your procedure. Your doctor may also give you more specific instructions. Call your doctor if you have any problems or questions after your procedure. Follow these instructions at home: Medicines ??? Take lphb-jhp-bgnqdyr and prescription medicines only as told by [...] cannot use soap and water, use hand forest fire fighters dispatcher. ? Change your bandage as told by [...] 10/11/2012 Document Revised: 09/07/2017 Document Reviewed: 06/25/2016 [employer] Patient Education ? 2019 [employer] documented in this encounter Plan of Treatment Not on file documented as of this encounter Visit Diagnoses Not on filedocumented in this encounter Care Teams Synchronizer Relationship Specialty Start Date End Date Alfredo Aguiar MD [address] [place] [address] PCP - General Adolescent Medicine 10/16/22 10/19/22 Alfredo Aguiar MD [address] [place] [address] PCP - General Adolescent Medicine 10/20/22 documented as of this encounter
--- OUTSIDE RECORDS SUMMARY | 2025-05-17 10:07 | XMS_ITS | Encounter Summary ---
Author Organization [employer] ([place], [place], [place], [place]) Address [address] [place] [address] Care Team Providers Care Refinery Superintendent Name Role Phone Alfredo Aguiar MD Primary Care Provider + [phone] Alfredo Aguiar MD Primary Care Provider + [phone] Encounter Details Date Type Department Care Team (Late st Contact Info) Description 08/20/2019 Transcribed Document [facility] [place] [facility] [place] [address] ProviderEryn MD [address] [place] [address] Social History Tobacco Use Types Packs/Day Years Used Date Smoking Tobacco: Never Assessed Sex and Gender Information Value Date Recorded Sex Assigned at Not on file Legal Sex Male 5:45 PM CDT Gender Identity Not on file Sexual Orientation Not on file documented as of this encounter Miscellaneous Notes * Cerner Conversion Note - Historical ProviderMD - 08/20/2019 1:55 PM ENGAGEMENT LIAISON Discharge Summary, PT Entered On: 08/20/2019 13:56 EST Performed On: 08/20/2019 13:55 EST by SHARON WALTON PTA Discharge Summary Discharge Summary Provider Notified : Physical Therapy Reason for Discharge : Discharged from hospital Discharged to, Therapy : Unit, care home SHARON WALTON PTA - 08/20/2019 13:55 EST Discharge Summary Comment, PT : Patient was min assist for all transfers ambulates 56ft with RWx min assist and chair follow Patient has not met 3 LTGs and would benefit from continued PT. PT agrees with written D/MARLENE Guidry, PT - 08/20/2019 15:03 EST Snf Goals Mobility/Bed Mobility LTG PT Grid Goal [...] - 08/20/2019 13:55 EST Electronically signed by [facility] Conversion Ship'S Surveyor Cerner at 11/18/2022 9:20 AM CDT documented in this encounter Plan of Treatment Not on file documented as of this encounter Visit Diagnoses Not on filedocumented in this encounter Care Teams Refinery Superintendent Relationship Specialty Start Date End Date Alfredo Aguiar MD [address] [place] [address] PCP - General Adolescent Medicine 10/16/22 10/19/22 Alfredo Aguiar MD [address] [place] [address] [place] [address] PCP - General Adolescent Medicine 10/20/22 documented as of this encounter
--- OUTSIDE RECORDS SUMMARY | 2025-05-17 10:08 | XMS_ITS | Encounter Summary ---
Author Organization [employer] ([place], [place], [place], [place]) Address [address] [place] [address] Care Team Providers Care Brick Off Bearer Name Role Phone Alfredo Aguiar MD Primary Care Provider + [phone] Alfredo Aguiar MD Primary Care Provider + [phone] Encounter Details Date Type Department Care Team (Late st Contact Info) Description 08/19/2019 Transcribed Document [facility] Family [place] [facility] [place] [address] ProviderEryn MD [address] [place] [address] Social History Tobacco Use Types Packs/Day Years Used Date Smoking Tobacco: Never Assessed Sex and Gender Information Value Date Recorded Sex Assigned at Not on file Legal Sex Male 5:45 PM CDT Gender Identity Not on file Sexual Orientation Not on file documented as of this encounter Miscellaneous Notes * Cerner Conversion Note - Eryn Arcos MD - 08/19/2019 5:06 PM MICROSOFT EXCHANGE ADMINISTRATOR Patient: LORA JAIN JR Age: 78 years [...] alive and healthy SH: , lives in [place], [place]. Denies tobacco, alcohol, or illicit drug [...] on filedocumented in this encounter Care Teams Brick Off Bearer Relationship Specialty Start Date End Date Alfredo Aguiar MD [address] [place] [address] PCP - General Adolescent Medicine 10/16/22 10/19/22 Alfredo Aguiar MD [address] [place] [address] PCP - General Adolescent Medicine 10/20/22 documented as of this encounter
--- OUTSIDE RECORDS SUMMARY | 2025-05-17 10:08 | XMS_ITS | Encounter Summary ---
Author Organization [employer] ([place], [place], [place], [place]) Address [address] [place] [address] Care Team Providers Care Muffle Worker Name Role Phone Alfredo Aguiar MD Primary Care Provider + [phone] Alfredo Aguiar MD Primary Care Provider + [phone] Encounter Details Date Type Department Care Team (Late st Contact Info) Description 05/22/2019 Transcribed Document [facility] [place] [address] [place] [address] ProviderEryn MD [address] [place] [address] Social History Tobacco Use Types Packs/Day Years [...] 05/22/2019 16:20 EDT Electronically signed by Wellington [facility] Conversion Supervisor Cerner at 11/18/2022 9:20 AM CDT documented in this encounter Plan of Treatment Not on file documented as of this encounter Visit Diagnoses Not on filedocumented in this encounter Care Teams Muffle Worker Relationship Specialty Start Date End Date Alfredo Aguiar MD [address] [place] [address] PCP - General Adolescent Medicine 10/16/22 10/19/22 Alfredo Aguiar MD [address] [place] [address] PCP - General Adolescent Medicine 10/20/22 documented as of this encounter
--- OUTSIDE RECORDS SUMMARY | 2025-05-17 10:08 | XMS_ITS | Encounter Summary ---
Author Organization [employer] ([place], [place], [place], [place]) Address [address] [place] [address] Care Team Providers Care Production Trainer Name Role Phone Alfredo Aguiar MD Primary Care Provider + [phone] Alfredo Aguiar MD Primary Care Provider + [phone] Encounter Details Date Type Department Care Team (Late st Contact Info) Description 05/22/2019 Transcribed Document [facility] [place] Family Medicine [address] [place] [address] ProviderEryn MD [address] [place] [address] Social History Tobacco Use Types Packs/Day Years [...] filedocumented in this encounter Care Teams Production Trainer Relationship Specialty Start Date End Date Alfredo Aguiar MD [address] [place] [address] PCP - General Adolescent Medicine 10/16/22 10/19/22 Alfredo Aguiar MD [address] [place] [address] PCP - General Adolescent Medicine 10/20/22 documented as of this encounter
--- OUTSIDE RECORDS SUMMARY | 2025-05-17 10:08 | XMS_ITS | Encounter Summary ---
Author Organization [employer] ([place], [place], [place], [place]) Address [address] [place] [address] Care Team Providers Care Electrical Sign Wirer Helper Name Role Phone Alfredo Aguiar MD Primary Care Provider + [phone] Alfredo Aguiar MD Primary Care Provider + [phone] Encounter Details Date Type Department Care Team (Late st Contact Info) Description 08/20/2019 Transcribed Document [facility] [place] [facility] [place] [address] ProviderEryn MD [address] [place] [id number] Social History Tobacco Use Types Packs/Day Years Used Date Smoking Tobacco: Never Assessed Sex and Gender Information Value Date Recorded Sex Assigned at Not on file Legal Sex Male 5:45 PM CDT Gender Identity Not on file Sexual Orientation Not on file documented as of this encounter Miscellaneous Notes * Cerner Conversion Note - Eryn ProviderMD - 08/20/2019 2:14 PM BOARD WORKER Final Discharge Planning Entered On: 08/20/2019 14:14 EST Performed On: 08/20/2019 14:14 EST by RAMBO MURRAY, RN-Grinding Mill Operator Final Discharge Planning Discharge Arrangements : Patient Post-Acute Information Patient Name: LORA JAIN JR Gender: Male : [birth year] Age: 78 Years [place] Referral(s): Service: Organization: Business Address: Phone Number: Long-Term Facility [facility] [address] [facility] [address], [place], [address] Patient Offered Choice/Affiliations Explained : Yes Important [...] : SNF with Medicare Certification-03 RAMBO MURRAY, RN-Grinding Mill Operator - 08/20/2019 14:14 EST Final Narrative Note Final Narrative Note : Pt to discharge to [facility]. Family to transport. Discharge summary faxed. RAMBO MURRAY, RN-Grinding Mill Operator - 08/20/2019 14:14 EST Electronically signed by [facility] Conversion Signal Tester Cerner at 11/18/2022 9:18 AM CDT documented in this encounter Plan of Treatment Not on file documented as of this encounter Visit Diagnoses Not on filedocumented in this encounter Care Teams Electrical Sign Wirer Helper Relationship Specialty Start Date End Date Alfredo Aguiar MD [address] [place] [address] PCP - General Adolescent Medicine 10/16/22 10/19/22 Alfredo Aguiar MD [address] [place] [address] PCP - General Adolescent Medicine 10/20/22 documented as of this encounter
--- OUTSIDE RECORDS SUMMARY | 2025-05-17 10:08 | XMS_ITS | Encounter Summary ---
Author Organization [employer] ([place], [place], [place], [place]) Address [address] [place] [address] Care Team Providers Care Commission Specialist Name Role Phone Alfredo Aguiar MD Primary Care Provider + [phone] Alfredo Aguiar MD Primary Care Provider + [phone] Encounter Details Date Type Department Care Team (Late st Contact Info) Description 05/22/2019 Transcribed Document [facility] [place] [facility] [place] [address] ProviderEryn MD [address] [place] [address] Social History Tobacco Use Types Packs/Day Years [...] on filedocumented in this encounter Care Teams Commission Specialist Relationship Specialty Start Date End Date Alfredo Aguiar MD [address] [place] [address] PCP - General Adolescent Medicine 10/16/22 10/19/22 Alfredo Aguiar MD [address] [place] [address] PCP - General Adolescent Medicine 10/20/22 documented as of this encounter
--- OUTSIDE RECORDS SUMMARY | 2025-05-17 10:08 | XMS_ITS | Data Portability ---
Author Organization [facility] Address [address] [place] [address] Care Team Providers Care Blender Snuff Name Role Phone CORRY LACKEY Primary Care Provider CORRY LACKEY Referring Provider Assessment Encounter Date Assessment Date Assessment LastModified by Organization Details LastModified Time 02/21/2020 02/21/2020 ASSESSMENT: 6m L TKA replant, DJD R knee PLAN: Lora's left TKA continues to do extremely well, with no evidence of recurrent PJI. He will continue on amoxicillin suppression. He will continue with his AFO as well. Steroid injection to the right knee today. He will monitor his blood glucose carefully. Follow-up in 6 months, with repeat x-rays of the left knee. [email or web address] Not available 02/21/2020 17:44:45 07/24/2020 07/24/2020 ASSESSMENT: 1 year status post left TKA replant PLAN: Lora is doing very well at 1 year. No signs or symptoms of recurrent PJI. He will continue on lifetime amoxicillin suppression, per Dr. Peng. Drop is resolving, albeit slowly. Continue AFO for now. We reviewed conservative and surgical treatment options for his right knee DJD. He politely declined a steroid injection today. We can revisit that at any point going forward. We will schedule routine clinical and radiographic follow-up on the left knee in 1 year's time. [email or web address] Not available 07/24/2020 12:47:02 07/23/2021 07/23/2021 ASSESSMENT: 2 years status post left TKA replant PLAN: Lora is doing very well at 1 year. No signs or symptoms of recurrent PJI. He will continue on lifetime amoxicillin suppression, per Dr. Peng. Drop is resolving, albeit slowly. Continue AFO for now. We reviewed conservative and surgical treatment options for his right knee DJD. He politely declined a steroid injection today. We can revisit that at any point going forward. We will schedule routine clinical and radiographic follow-up on the left knee in 1 year's time. [email or web address] Not available 07/23/2021 12:39:02 01/16/2022 01/16/2022 ASSESSMENT: 2.5 years status post left TKA replant PLAN: Mr. Jain returns today for unplanned visit with his left knee. Subjective severe pain of his medial knee during 1 incidents after twisting. The pain is no longer there. Overall x-rays are adequate with no changes. Patient able to ambulate without discomfort today. No swelling or concerning features. I did discuss that some discomfort following a reimplant following prosthetic joint infection is fairly normal. I did discuss concerning features with patient to be on the look out for. Overall, I do believe he is doing very well at this time. We will have patient follow-up in 1 year. Call with any concerns Not available 01/16/2022 15:50:23 01/15/2023 01/15/2023 ASSESSMENT: 3.5 years status post left TKA replant PLAN: Overall is doing very well. No complaints today. Able to do all ADLs without assistance. Follow-up in 1 year for reevaluation. [email or web address] Not available 01/15/2023 12:14:32 Plan of Treatment Reminders Order Date Submit Date Provider Last Modified By Organization Details Last Modified Time Details Appointments None record ed. Lab None record ed. Referral None record ed. Procedures None record ed. Surgeries None record ed. Imaging None record ed. Medication Orders None record ed. Patient TargetsNo targets recorded. Patient Instructions Encounter Date Encounter Id Patient Instructions Last Modified By Organization Details Last Modified Time 02/21/2020 [id number] knee arthritis: care instructions [email or web address] Not available 02/21/2020 17:45:41 Reason for Referral None Reported. Results Created Date Observation Date Name Description Value Unit Range Abnormal Flag Note LastModifiedBy Organization Detail LastModifiedTime 02/21/20 20 02/21/2020 XR, joint , multi ple, 1 view [facility] [address] [place] [address] Arturo estevez Name: LORA estevez : [id number] Arturo estevez 9 Orderi ng Provid er: LION PEREYRA CLARITZA EXAM DATE: 2019 EXAM: XR LONG LEG LEFT/ JOINT SURVEY COMPAR GURINDER: HISTOR Y: Follow -up of prior surger y. FINDIN GS: There is a left total knee arthro plasty in place. There is no eviden ce of loosen ing or compli cation . There is minima l valgus angula tion. No fractu re is identi fied. There are mild degene rative change s in the left hip and mild degene rative change s in the ankle. IMPRES FEDERICO: 1. There is a left knee arthro plasty in place with minima l valgus angula tion. Interp reted By: Pancho parham MD Electr onical ly Signed By: Pancho parham MD on 12:42 PM [email or web address] [facility] [place] [address] , [place], [address], 02/22/2020 17:24:04 07/24/20 20 07/24/2020 XR, knee, 3 view [facility] [address] [place] [address] Arutro estevez Name: LORA estevez : [phone] Arturo estevez 9 Orderi ng [facility]: 2019 EXAM: XR LT KNEE 3 VIEWS COMPAR GURINDER: HISTOR Y: Follow -up of prior surger y. FINDIN GS: Again seen is a left knee total arthro plasty . There is no eviden ce of loosen ing. No fractu re is identi fied. Contra latera l knee: There are severe degene rative change s. IMPRES FEDERICO: 1. There is a left total knee arthro plasty in place withou t eviden ce of loosen ing. Interp reted By: Pancho parham MD Electr onical ly Signed By: Pancho parham MD on 2019 11:19 AM [email or web address] [facility] [place] [address] , [place], [address], 07/26/2020 15:50:58 07/23/20 21 07/23/2021 XR, knee, 3 view [facility] [address] [place] [address] Patigretchen t Name: LORA Shine SUSY WHITMAN Arturo t : 937 Patigretchen t 9 Orderi ng Provid er: [facility] EXAM DATE: 2020 EXAM: XR LT KNEE 3 VIEWS COMPAR GURINDER: 2019 HISTOR Y: Follow -up of prior surger lazara CANELA GS: Again seen is a revisi on left knee total arthro plasty . There is no eviden ce of loosen ing. No fractu re is identi fied. Contra latera l knee: There are severe degene rative change s. IMPRES FEDERICO: 1. There is a left total knee arthro plasty in place withou t eviden ce of loosen ing. Interp reted By: Pancho parham MD Electr onical ly Signed By: Pancho parham MD on 2020 10:56 AM [email or web address] [facility] [place] [address] , [place], [address], 07/25/2021 08:53:24 01/17/20 22 01/16/2022 XR, knee, 4 or more view [facility] [address] [place] [address] Patigretchen t Name: LORA JAIN JR Arturo t : 937 Patigretchen t 9 Orderi ng Provid er: [facility] EXAM DATE: 2021 EXAM: XR LT KNEE COMPLE TE, 4 OR MORE VWS COMPAR GURINDER: 2020 HISTOR Y: Follow -up of prior surger yОлег ROLA GS: Again seen is a left knee total arthro plasty . There is no eviden ce of loosen ing. No fractu re is identi fied. Contra latera l knee: There are severe degene rative change s. IMPRES FEDERICO: 1. There is a left total knee arthro plasty in place withou t eviden ce of loosen ing. Interp reted By: Pancho parham MD Electr onical ly Signed By: Pancho parham MD on 022 2:[email or web address] [facility] [place] [address] , [place], [address], 01/22/2022 20:42:05 01/16/20 23 01/15/2023 XR, knee, 3 view [facility] [address] [place] [address] Patien t Name: LORA JAIN JR Kellygretchen t : 937 Patigretchen t 9 Tio ng [facility] er: [facility] EXAM DATE: 2022 EXAM: XR LT KNEE 3 VIEWS COMPAR GURINDER: 022 HISTOR Y: Follow -up of prior surger yОлег CANELA GS: Again seen is a revisi on left knee total arthro plasty . There is no eviden ce of loosen ing. No fractu re is identi fied. Contra latera l knee: There are severe degene rative change s. IMPRES FEDERICO: 1. There is a left total knee arthro plasty in place withou t eviden ce of loosen ing. Interp reted By: Pancho parham MD Electr onical ly Signed By: Pancho parham MD on 023 11:18 AM [email or web address] [facility] [place] [address] , [place], [address], 01/20/2023 09:53:27 Result Notes Documentation Provider Name and Address Organization Details Recorded Time Xr, Joint, Multiple, 1 View : [facility] [address] [address] Patient Name: LORA JAIN JR Patient : 1940 Patient Ordering Provider: LION DAVIS EXAM DATE: 02/21/2020 EXAM: XR LONG LEG LEFT/ JOINT SURVEY COMPARISON: 10/13/2019 HISTORY: Follow-up of prior surgery. FINDINGS: There is a left total knee arthroplasty in place. There is no evidence of loosening or complication. There is minimal valgus angulation. No fracture is identified. There are mild degenerative changes in the left hip and mild degenerative changes in the ankle. IMPRESSION: 1. There is a left knee arthroplasty in place with minimal valgus angulation. Interpreted By: Maurizio Valerio MD DAVIS MD [address] [place], [address], [facility] 02/22/2020 17:24:04 Xr, Knee, 3 View : [facility] [address] [place] [address] Patient Name: LORA JAIN JR Patient : 1940 Patient Ordering Provider: LION DAVIS EXAM DATE: 07/24/2020 EXAM: XR LT KNEE 3 VIEWS COMPARISON: 02/21/2020 HISTORY: Follow-up of prior surgery. FINDINGS: Again seen is a left knee total arthroplasty. There is no evidence of loosening. No fracture is identified. Contralateral knee: There are severe degenerative changes. IMPRESSION: 1. There is a left total knee arthroplasty in place without evidence of loosening. Interpreted By: Maurizio Valerio MD DAVIS MD [address] [place], [address], [facility] 07/26/2020 15:50:58 Xr, Knee, 3 View : [facility] [address] [place] [address] Patient Name: LORA JAIN JR Patient : 1940 Patient Ordering Provider: ELEUTERIO YUEN EXAM DATE: 07/23/2021 EXAM: XR LT KNEE 3 VIEWS COMPARISON: 07/24/2020 HISTORY: Follow-up of prior surgery. FINDINGS: Again seen is a revision left knee total arthroplasty. There is no evidence of loosening. No fracture is identified. Contralateral knee: There are severe degenerative changes. IMPRESSION: 1. There is a left total knee arthroplasty in place without evidence of loosening. Interpreted By: Maurizio Valerio MD TERIO YUEN PA-C [address] [place], [address], [facility] 07/25/2021 08:53:24 Xr, Knee, 4 Or More View : [facility] [address] [place] [address] Patient Name: LORA JAIN JR Patient : 1940 Patient Ordering Provider: ELEUTERIO YUEN EXAM DATE: 01/16/2022 EXAM: XR LT KNEE COMPLETE, 4 OR MORE VWS COMPARISON: 07/23/2021 HISTORY: Follow-up of prior surgery. FINDINGS: Again seen is a left knee total arthroplasty. There is no evidence of loosening. No fracture is identified. Contralateral knee: There are severe degenerative changes. IMPRESSION: 1. There is a left total knee arthroplasty in place without evidence of loosening. Interpreted By: Maurizio Valerio MD TERIO YUEN PA-C [address] [place], [address], [facility] 01/22/2022 20:42:05 Xr, Knee, 3 View : [facility] [address] [place] [address] Patient Name: LORA JAIN JR Patient : 1940 Patient Ordering Provider: ELEUTERIO YUEN EXAM DATE: 01/15/2023 EXAM: XR LT KNEE 3 VIEWS COMPARISON: 01/16/2022 HISTORY: Follow-up of prior surgery. FINDINGS: Again seen is a revision left knee total arthroplasty. There is no evidence of loosening. No fracture is identified. Contralateral knee: There are severe degenerative changes. IMPRESSION: 1. There is a left total knee arthroplasty in place without evidence of loosening. Interpreted By: Maurizio Valerio MD TERIO YUEN PA-C [address] [place] [address], [address], [facility] 01/20/2023 09:53:27 Problems Name Problem SNOMED Code Status Onset Date Resolution Date Notes Provider Name and Address Organization Details Recorded Time Malignant neoplasm of prostate 814948921 Active 2015 From Automated Load;Prov ider: Donnie Heath Jr; atus: Active Not Available [facility] 3 18:03:05 Impotence of organic origin Active 2015 From Automated Load;Prov ider: Christopher Heath Jr atus: Active Not Available [facility] 3 18:03:05 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 Procedures Surgical History Date Name Laterality Status Provider Name and Address Organization Details Recorded Time 02/21/20 20 Injection - Joint/Bursa, Major completed LION DAVIS MD [address] [place], [address], [facility] 02/21/2020 17:43:44 07/15/20 19 Aspiration Joint/Bursa, Major completed Jamel LOUIE PA-C [address] [place], [address], [facility] 07/15/2019 14:29:06 04/21/20 19 Aspiration Joint/Bursa, Major completed LION DAVIS MD [address] [place], [address], [facility] 04/22/2019 10:23:04 05/19/20 18 Aspiration Joint/Bursa, Major completed Jamel LOUIE PA-C [address] [place], [address], [facility] 05/19/2018 13:41:25 04/14/20 18 Total knee arthroplasty completed Booker Arroyo [facility] 10/13/2019 09:22:53 12/26/19 18 Injection - Joint/Bursa, Mark completed Evie Mendoza [facility] 12/25/2017 10:59:21 12/16/19 18 Injection - Joint/Bursa, Major completed LION DAVIS MD [address] [place], [address], [facility] 12/15/2017 08:59:04 Imaging Results None recorded. Procedure Notes None recorded. Medical Equipment None Reported. Allergies No known drug allergies Medications Name Sig Start Date Stop Date Status Note LastModified by Organization Details LastModified Time amoxicillin 500 mg capsule 01/16 completed Not Available Not Available Not Available metformin 500 mg tablet TAKE TWO TABLETS BY MOUTH TWICE DAILY active Not Available Not Available No t Available venlafaxine ER 37.5 mg capsule,ext ended release 24 hr 12/23 completed Not Available Not Available Not Available venlafaxine ER 75 mg capsule,ext ended release 24 hr 12/15 completed Not Available Not Available Not Available pravastatin 40 mg tablet Take 1 tablet every day by oral route. 04/21 completed Not Available Not Available Not Available hydrocodone 5 mg-acetamin ophen 325 mg tablet 12/15 completed Not Available Not Available Not Available meloxicam 15 mg tablet 12/23 completed Not Available Not Available Not Available FreeStleonardo Lancets 28 gauge active Not Available Not Available Not Available glipizide ER 5 mg tablet, extended release 24 hr 04/21 completed Not Available Not Available Not Available acetazolami de 250 mg tablet TAKE 1 TABLET BY MOUTH FOUR TIMES DAILY active Not Available Not Available No t Available Plavix 75 mg tablet Take 1 tablet every day by oral route. active Not Available Not Available No t Available aspirin 81 mg tablet,giorgio yed release Take 1 tablet every day by oral route. active Not Available Not Available No t Available pantoprazol e 20 mg tablet,giorgio yed release TAKE ONE TABLET BY MOUTH EVERY DAY active Not Available Not Available No t Available bisoprolol fumarate 5 mg tablet TAKE ONE TABLET BY MOUTH EVERY DAY active Not Available Not Available No t Available amoxicillin 875 mg tablet 01/16 completed Not Available Not Available Not Available benzonatate 100 mg capsule 12/15 completed Not Available Not Available Not Available glipizide ER 2.5 mg tablet, extended release 24 hr 12/15 completed Not Available Not Available Not Available erythromyci n 5 mg/gram (0.5 %) eye ointment APPLY A 1/4 INCH STRIP OF OINTMENT IN A THIN LAYER TO/IN THE AFFECTED EYE(S) TWICE DAILY BEGINNING 3 DAYS BEFORE SURGERY, BUT DO NOT USE THE DAY OF SURGERY active Not Available Not Available No t Available vancomycin 250 mg capsule TAKE ONE CAPSULE BY MOUTH FOUR TIMES DAILY FOR 7 DAYS -- FINISH ALL MEDICINE -- 01/16 completed Not Available Not Available Not Available gabapentin 300 mg capsule active Not Available Not Available Not Available omeprazole 20 mg capsule,del ayed release active Not Available Not Available Not Available aspirin 81 mg chewable tablet Chew 1 tablet every day by oral route. 07/20 completed Not Available Not Available Not Available amoxicillin 250 mg capsule 01/16 completed Not Available Not Available Not Available lisinopril 5 mg tablet 1/2 tablet daily active Not Available Not Available No t Available mupirocin 2 % topical ointment 12/23 completed Not Available Not Available Not Available Percocet 5 mg-325 mg tablet Take 1 tablet every 4 hours by oral route as needed. 06/13 completed Not Available Not Available Not Available fluticasone propionate 50 mcg/actuati on nasal spray,suspe nsion active Not Available Not Available Not Available metformin ER 500 mg tablet,exte nded release 24 hr active Not Available Not Available Not Available lisinopril 2.5 mg tablet 12/15 completed Not Available Not Available Not Available amoxicillin 875 mg-potassiu m clavulanate 125 mg tablet 01/16 completed Not Available Not Available Not Available sodium chloride 0.9 % (flush) injection syringe active Not Available Not Available Not Available Novolog Mix 70-30 FlexPen U-100 Insulin 100 unit/mL subcutaneou s pen 01/15 completed Not Available Not Available Not Available lisinopril- hydrochloro thiazide 0.125 mg-25 mg tablet Take 1 tablet every day by oral route. 04/21 completed Not Available Not Available Not Available Novolog Mix 70-30 U-100 Insulin 100 unit/mL subcutaneou s solution 01/15 completed Not Available Not Available Not Available Novolog FlexPen U-100 Insulin aspart 100 unit/mL (3 mL) subcutaneou s INJECT 6 UNITS with breakfast AND dinner, AND 8 UNITS with LUNCH; plus correctio n 140. Max daily DOSE of 50 UNITS 01/15 completed Not Available Not Available Not Available aripiprazol e 5 mg tablet active Not Available Not Available Not Available rosuvastati n 20 mg tablet active Not Available Not Available Not Available BD Ultra-Fine Mini Pen Needle 31 gauge x /16 active Not Available Not Available Not Available sodium chloride 0.9 % intravenous piggyback active Not Available Not Available No t Available Vitamin C 12/23 completed Not Available Not Available Not Available Vitamin D3 active Not Available Not Av ailable Not Available multivitami n active Not Available Not Available Not Available Novolog FlexPen U-100 Insulin active Not Available Not Available Not Available BD Ultra-Fine Short Pen Needle 31 gauge x /16 active Not Available Not Available Not Available peg 3350-electr olytes 236 gram-22.74 gram-6.74 gram-5.86 gram solution 04/21 completed Not Available Not Available Not Available FreeStyle Lite Strips active Not Available Not Available Not Available Havrix (PF) 1,440 MALISSA unit/mL intramuscul ar syringe 04/21 completed Not Available Not Available Not Available Lantus Solostar U-100 Insulin 100 unit/mL (3 mL) subcutaneou s pen INJECT 20 UNITS SUBCUTANE OUSLY ONCE DAILY IN THE MORNING active Not Available Not Available No t Available Humalog Mix 75-25 KwikPen U-100 insulin 100 unit/mL subcutaneou s pen 04/21 completed Not Available Not Available Not Available diflupredna te 0.05 % eye drops INSTILL 1 DROP IN AFFECTED RIGHT EYE TWICE A DAY active Not Available Not Available No t Available Suprep Bowel Prep Kit 17.5 gram-3.13 gram-1.6 gram oral solution 12/23 completed Not Available Not Available Not Available Viibryd 10 mg tablet 04/21 completed Not Available Not Available Not Available vilazodone 40 mg tablet active Not Available Not Available Not Available Viibryd 20 mg tablet 04/21 completed Not Available Not Available Not Available Eliquis 2.5 mg tablet 09/09 completed Not Available Not Available Not Available Jardiance 10 mg tablet 12/15 completed Not Available Not Available Not Available Jardiance 25 mg tablet 04/21 completed Not Available Not Available Not Available Trulicity 0.75 mg/0.5 mL subcutaneou s pen injector active Not Available Not Available Not Available Spiriva Respimat 2.5 mcg/actuati on solution for inhalation active Not Available Not Available N ot Available vilazodone 10 mg (7)-20 mg (23) tablets in a titration pack Take by oral route. 12/23 completed Not Available Not Available Not Available Stiolto Respimat 04/21 completed Not Available Not Available Not Available Trintellix 5 mg tablet 12/23 completed Not Available Not Available Not Available Trintellix 10 mg tablet 12/23 completed Not Available Not Available Not Available Shingrix (PF) 50 mcg/0.5 mL intramuscul ar suspension, kit active Not Available Not Available Not Available Plenvu 140 gram-9 gram-5.2 gram powder packs TAKE DIRECTED active Not Available Not Available No t Available Vitals Date Recorded Body height Body mass index (BMI) Body weight Provider Name and Address Organization Details Last Updated DateTime 01/15/2023 185.42 cm 25.6 kg/m2 81670.92 g Celeste [facility] 01/15/2023 10:58:40 Date Recorded Body height Body mass index (BMI) Body weight Provider Name and Address Organization Details Last Updated DateTime 01/16/2022 185.42 cm 25.6 kg/m2 23651.92 g Celeste [facility] 01/16/2022 14:22:20 Date Recorded Body height Body mass index (BMI) Body weight Pain severity - 0-10 verbal numeric rating [Score] - Reported Provider Name and Address Organization Details Last Updated DateTime 02/21/2020 185.42 cm 25.6 kg/m2 88678.92 g 4 Paragyoung [facility] 02/21/2020 12:55:46 Date Recorded Body height Body mass index (BMI) Body weight Provider Name and Address Organization Details Last Updated DateTime 07/23/2021 185.42 cm 25.6 kg/m2 80779.92 g Celeste [facility] 07/23/2021 11:16:04 Date Recorded Body height Body mass index (BMI) Body weight Pain severity - 0-10 verbal numeric rating [Score] - Reported Provider Name and Address Organization Details Last Updated DateTime 07/24/2020 185.42 cm 25.6 kg/m2 98768.92 g 3 Paragyoung [facility] 07/24/2020 11:05:15 Social History Question Answer Notes LastModified by Organizat ion Details LastModified Time Tobacco Smoking Status [facility]/15/2017 08:10:05 What Was The Date Of Your Most Recent Tobacco Screening? 12/23/2018 Information n ot available 09/20/2019 Sex: Unknown Functional Status None recorded. Mental Status None recorded. Family History Nothing Reported. Medical History Condition Response Gout N Other N Kidney Stones N COPD N Pneumonia N Arthritis Y Blood Clot N Cancer Y Stroke N Kidney Disease N Heart Conditions N Migraines N Skin Problems N Rheumatic Fever N Bleeding Disorder N Tuberculosis N Genetic Disorder N AIDS/HIV N Asthma N Included as Review of Systems N Anxiety/Depression Y Thyroid Disease N Hernia N Glaucoma N Anesthesia Complications N Blood Thinners Y Alcohol Overuse/Alcohol Abuse N High Cholesterol N Liver Disease N Allergies/Hayfever N Immune System Disorder N Heart Attack ([place]) N Mental Illness N Neurological Problems N Diabetes Y Seizures/Epilepsy N Sleep Apnea Y Hypertension Y Osteoporosis N Past Encounters Encounter ID Performer Location Encounter Start Date Encounter Closed Date Diagnosis/Indication Diagnosis SNOMED-CT Code Diagnosis ICD10 Code Diagnosis IMO Codes Diagnosis Note [id number] LION Moy MD [facility] [address] [place] [address] 12/15/2017 07:36:30 12/15/2017 08:59:20 Knee pain 45919718 M25.561 M25.562 Idiopathic osteoarthritis 270783244 M19.91 [id number] Jamel LOUIE PA-C [facility] [address] [place] [address] 12/25/2017 10:24:30 12/25/2017 11:12:42 Osteoarthritis of knee 237828302 M17.11 [id number] LION Moy MD ORTHOPEDI CS [address] [place] [address] 03/04/2018 15:25:23 03/04/2018 16:32:40 Idiopathic osteoarthritis [id number] M19.91 [id number] Jamel LOUIE PA-C [facility] [address] [place] [address] 05/05/2018 11:59:00 05/05/2018 12:41:22 Replacement of total knee joint [id number] Z96.659 Discussed hamstring stretching with the patient. Also reassured him that the discolorat ion Is more of a pink and red color and does not appear to be cellulitic . Contact us if any drainage. Do not be concerned about any additional warmth as this is normal. Encouraged use of pain medicine during therapy despite his daughters desire for abstinence . Discussed LEON hose compliance . [id number] Jamel LOUIE PA-C [facility] [address] [place] [address] 05/19/2018 12:42:58 05/19/2018 13:47:57 Postoperative care [id number] Z48.89 Aspiration was performed for both diagnostic and therapeuti c purposes. Copious amount of fluid was obtained and specimen sent for all appropriat e tests.Kelly ent will follow-up in one week to evaluate the level of the fusion review these results. In the interim I have re-caution ed him somewhat sternly that he needs to get the foot above the knee knee above the heart and ambulate less. For someone who is having a sense of general malaise the knee certainly appears similar to person is overactive in the immediate postoperat prabhakar course [id number] LION Moy MD ORTHOPEDI [address] [place] [address] 05/27/2018 10:30:48 05/27/2018 11:21:11 Replacement of total knee joint 495573412 Z96.704 [id number] LION Moy MD [facility] [address] [address] 07/20/2018 12:44:14 07/20/2018 13:43:59 Replacement of total knee joint 787766381 Z96.232 [id number] LION Moy MD ORTHOPEDI [address] [place] [address] 12/23/2018 13:11:24 12/23/2018 14:20:36 Replacement of total knee joint 332982780 Z96.963 [id number] LION Moy MD ORTHOPEDI [address] [place] [address] 04/21/2019 10:43:07 04/21/2019 14:49:46 Pain associated with prosthesis of knee joint 556906751 T84.84XD [id number] LION Moy MD ORTHOPLUÍSI [facility] [address] [address] 05/10/2019 09:38:17 05/10/2019 11:29:55 Infection of total knee joint prosthesis 315493379 T84.59XD [id number] LION Moy MD SURGERY SCHEDULE [address] [place] [address] 05/23/2019 14:03:55 05/23/2019 15:28:18 [id number] PRIMO STEVEN CS [facility] [address] [address] 05/25/2019 13:15:56 05/25/2019 14:46:38 Fall W19.XXXA Low suspicion for any quadricep tendon injury. Extension lag likely due to trauma from surgery and tourniquet use. Patient was a knee immobilize r at time of fall therefore suspicion is lowered further. Patient will continue with touchdown weightbear ing in knee immobilize r all times. Patient will follow up with me in 2 weeks to consider staple removal. Postoperative care [id number] Z48.89 [id number] PRIMO STEVEN CS [facility] [address] [address] 06/13/2019 14:18:02 06/13/2019 15:31:11 Prosthetic joint infection [id number] T84.54XD Begin working on active range of motion only. Leave incision Open to air. Knee immobilize r when ambulating . Continue nonweightb earing. Discontinu e Eliquis in 1 week. Discontinu e LEON hose in 3 weeks. [facility] week hiatus of antibiotic s. Tentative surgical date August 22. Two-view x-ray on follow-up date [id number] PRIMO STEVEN CS [facility] [address] [address] 07/15/2019 13:13:27 07/20/2019 22:54:37 History of left total knee replacement [id number] 863505 Z96.652 Aspirate may be capillary blood. Strong confidence that I was in the joint but did not obtain aspirate material until I slowly withdrew the needle. Sedimentat ion rate CRP and d-dimer ordered. Aspirates sent for in house routine culture. No follow-up scheduled at this time. Replant scheduled for August 17 [id number] LION Moy MD SURGERY SCHEDULE [address] [place] [address] 08/22/2019 09:12:13 08/22/2019 10:26:20 [id number] PRIMO STEVENI [address] [place] [address] 08/25/2019 13:38:05 08/25/2019 15:04:13 Postoperative care [id number] Z48.89 Incision open to air. Do not get incision wet with hygiene. Continue range of motion per standard protocol. Retained joshua for now. Increased ice and elevation to decrease edema. Suspect deficit of service anterior will improve. Follow-up in 2 weeks for radiograph wound check and likely staple removal [id number] LION Moy MD [facility] [address] [place] [address] 09/09/2019 12:17:23 09/09/2019 15:11:11 Postoperative care 107642366 Z48.89 History of total knee arthroplasty 6984144193 105 Z96.659 Right foot drop 04067386 01 07963 M21.872 [id number] LION Moy MD ORTHOPEDI [address] [place] [address] 10/13/2019 09:07:17 10/13/2019 11:08:21 Postoperative care 189253584 Z48.89 Infection of total knee joint prosthesis 653343893 T84.59XD History of total knee arthroplasty 0100600499 105 Z96.659 Left foot drop 072829865 1 38731 M21.905 [id number] LION Moy MD [facility] [address] [place] [address] 12/08/2019 15:13:22 12/08/2019 16:53:21 Infection of total knee joint prosthesis 237085705 T84.59XD History of total knee arthroplasty 8334557345 105 Z96.659 Left foot drop 752695070 1 58923 M21.866 [id number] LION Moy MD [facility] [address] [place] [address] 02/21/2020 12:30:47 02/21/2020 13:17:33 History of total knee arthroplasty 0626233978 105 Z96.659 Infection of total knee joint prosthesis 694254930 T84.59XD Left foot drop 340892776 1 98000 M21.372 Osteoarthr itis of knee 824314408 M17.11 [id number] LION Moy MD [facility] [address] [place] [address] 07/24/2020 10:50:26 07/24/2020 11:48:55 History of total knee arthroplasty 8677170714 105 Z96.659 Infection of total knee joint prosthesis 249332556 T84.59XD [id number] LION Moy MD [facility] [address] [place] [address] 07/23/2021 10:44:24 07/23/2021 11:47:32 History of total knee arthroplasty 2861626485 105 Z96.659 Infection of total knee joint prosthesis 390399606 T84.59XD [id number] ELEUTERIO YUEN PA-C [facility] [address] [place] [address] 01/16/2022 14:13:03 01/16/2022 15:07:31 History of total knee arthroplasty 1939618356 105 Z96.659 Infection of total knee joint prosthesis 024085315 T84.59XD [id number] ELEUTERIO YUEN PA-C [facility] [address] [place] [address] 01/15/2023 10:13:22 01/15/2023 13:50:22 History of total knee arthroplasty 9446609899 105 Z96.659 Infection of total knee joint prosthesis 818883711 T84.59XD Health Concerns Section Related Observation LastModified by Organization Detai ls LastModified Time None Recorded Concern Status LastModified by Organization Details LastModified Time None Recorded Advance Directives Directive None Recorded Payers Insurance Date Sequence Insurance Name Policy Number Policy Carpenter Covered Member ID Carpenter Member ID Guarantor Name 01/15/2023 1 [place] Lora Jain [id number] Lora Jain 01/15/2023 2 FOR LIFE ( - MEDICARE SUPPLEMENT) Lora Jain [id number] Lora Jain 01/15/2023 2 FOR LIFE ( - MEDICARE SUPPLEMENT) Lora Jain [id number] Lora Jain 01/15/2023 [facility] [place] Lora Jain [id number] Lora Jain 01/15/2023 [facility] [place] Lora Jain [id number] Lora Jain Notes Date Note Type Note Provider Name and Address Organization Details Recorded Time 02/21/2020 text/html ROS as noted in the HPI 02-21-20: Mr. Jain returns today for routine follow-up on his left TKA replant. He is now approaching 6 months out from surgery. He continues to do extremely well. Some occasional effusions, and some slight medial pain, but not all debilitating. No fevers or chills. He continues on lifetime amoxicillin suppression, and is followed by Dr. Peng. He feels that his foot drop has improved slightly. He does continue to use his AFO, and has no complaints regarding it. 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 Steroid injections have been helpful in the past. He does have a history of diabetes, but is diligent about monitoring his blood sugars 3 times per day. 12-08-19: *Visit today is being conducted via telehealth using both audio and video. Patient has expressed an understanding of the telehealth process and has consented. Patient is 15 weeks s/p L TKA Replant. Pain is improving Currently taking no doses per day of narcotic. Ambulating with no assistive device PT: outpatient Denies fevers, chills, or wound drainage. They do not request a refill of pain medicine. Foot drop is improving. He continues to report some burning pain, improved with Neurontin. He is using an AFO at this point. He continues on amoxicillin, and follows with Dr. Peng regularly. 10-13-19: Patient is 8 weeks s/p L REV/ Replant TKA. Pain is improving Currently taking no doses per day of narcotic. Ambulating with cane PT: outpatient Denies fevers, chills, or wound drainage. They do request a refill of pain medicine, gabapentin. He continues on oral amoxicillin. His foot drop persists, but he does notice perhaps some slight improvement. He is reporting some burning pain in the foot, which is improved with Neurontin. 09-09-19: Patient is 3 weeks s/p L TKA Replant. Pain is improving Currently taking <3 doses per day of narcotic. Ambulating with walker PT: SNF Denies fevers, chills, or wound drainage. They do not request a refill of pain medicine. Lora is currently residing at [place], and is preparing to be discharged home next week. He is doing extremely well, with minimal pain. He did develop a foot drop in the immediate postoperative period, but that appears to be resolving. He is maintained on oral amoxicillin, and is scheduled to follow-up with Dr. Peng next week. He is requesting a game ready type cold compression machine, as it works better for him than the ice packs. LION DAVIS MD [address] [place] [address], [id number], [facility] 02/21/2020 17:45:45 07/24/2020 text/html ROS as noted in the HPI 07-24-20: Mr. Jain returns today for routine follow-up on his left TKA replant. He is now 1 year out from surgery. Overall, he continues to do extremely well. He has minimal pain, and no instability. He is ambulating with no assistive devices. He remains on oral amoxicillin suppression. He has no recurrent signs or symptoms of PJI. His foot drop to use to improve, albeit slowly. He uses his AFO, without complaint or difficulty. He does have DJD in his right knee. We had discussed a steroid injection at today's visit, but he feels that his symptoms are not severe enough to warrant it today. 02-21-20: Mr. Jain returns today for routine follow-up on his left TKA replant. He is now approaching 6 months out from surgery. He continues to do extremely well. Some occasional effusions, and some slight medial pain, but not all debilitating. No fevers or chills. He continues on lifetime amoxicillin suppression, and is followed by Dr. Peng. He feels that his foot drop has improved slightly. He does continue to use his AFO, and has no complaints regarding it. 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 Steroid injections have been helpful in the past. He does have a history of diabetes, but is diligent about monitoring his blood sugars 3 times per day. 12-08-19: *Visit today is being conducted via telehealth using both audio and video. Patient has expressed an understanding of the telehealth process and has consented. Patient is 15 weeks s/p L TKA Replant. Pain is improving Currently taking no doses per day of narcotic. Ambulating with no assistive device PT: outpatient Denies fevers, chills, or wound drainage. They do not request a refill of pain medicine. Foot drop is improving. He continues to report some burning pain, improved with Neurontin. He is using an AFO at this point. He continues on amoxicillin, and follows with Dr. Peng regularly. 10-13-19: Patient is 8 weeks s/p L REV/ Replant TKA. Pain is improving Currently taking no doses per day of narcotic. Ambulating with cane PT: outpatient Denies fevers, chills, or wound drainage. They do request a refill of pain medicine, gabapentin. He continues on oral amoxicillin. His foot drop persists, but he does notice perhaps some slight improvement. He is reporting some burning pain in the foot, which is improved with Neurontin. 09-09-19: Patient is 3 weeks s/p L TKA Replant. Pain is improving Currently taking <3 doses per day of narcotic. Ambulating with walker PT: SNF Denies fevers, chills, or wound drainage. They do not request a refill of pain medicine. Lora is currently residing at [place], and is preparing to be discharged home next week. He is doing extremely well, with minimal pain. He did develop a foot drop in the immediate postoperative period, but that appears to be resolving. He is maintained on oral amoxicillin, and is scheduled to follow-up with Dr. Peng next week. He is requesting a game ready type cold compression machine, as it works better for him than the ice packs. LION DAVIS MD [address] [place], [address], [facility] 07/24/2020 12:47:25 07/23/2021 text/html ROS as noted in the HPI 07-23-21: Mr. Jain returns today for routine follow-up on his left TKA replant. He is now 2 years out from surgery. Overall, he continues to do well. He has minimal pain, and no instability. He does still endorse some occasional effusions. His foot drop is relatively stable. He would estimate 50% recovery in total. He no longer uses his AFO, but also does not report any significant debility. He continues to be maintained on oral amoxicillin suppression, for life. He is tolerating that medication well. He denies fevers, chills, or wound drainage. 07-24-20: Mr. Jain returns today for routine follow-up on his left TKA replant. He is now 1 year out from surgery. Overall, he continues to do extremely well. He has minimal pain, and no instability. He is ambulating with no assistive devices. He remains on oral amoxicillin suppression. He has no recurrent signs or symptoms of PJI. His foot drop to use to improve, albeit slowly. He uses his AFO, without complaint or difficulty. He does have DJD in his right knee. We had discussed a steroid injection at today's visit, but he feels that his symptoms are not severe enough to warrant it today. 02-21-20: Mr. Jain returns today for routine follow-up on his left TKA replant. He is now approaching 6 months out from surgery. He continues to do extremely well. Some occasional effusions, and some slight medial pain, but not all debilitating. No fevers or chills. He continues on lifetime amoxicillin suppression, and is followed by Dr. Peng. He feels that his foot drop has improved slightly. He does continue to use his AFO, and has no complaints regarding it. 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 Steroid injections have been helpful in the past. He does have a history of diabetes, but is diligent about monitoring his blood sugars 3 times per day. 12-08-19: *Visit today is being conducted via telehealth using both audio and video. Patient has expressed an understanding of the telehealth process and has consented. Patient is 15 weeks s/p L TKA Replant. Pain is improving Currently taking no doses per day of narcotic. Ambulating with no assistive device PT: outpatient Denies fevers, chills, or wound drainage.They do not request a refill of pain medicine.Foot drop is improving. He continues to report some burning pain, improved with Neurontin. He is using an AFO at this point. He continues on amoxicillin, and follows with Dr. Peng regularly. 10-13-19: Patient is 8 weeks s/p L REV/ Replant TKA. Pain is improving Currently taking no doses per day of narcotic. Ambulating with cane PT: outpatient Denies fevers, chills, or wound drainage.They do request a refill of pain medicine, gabapentin.He continues on oral amoxicillin. His foot drop persists, but he does notice perhaps some slight improvement. He is reporting some burning pain in the foot, which is improved with Neurontin. 09-09-19: Patient is 3 weeks s/p L TKA Replant. Pain is improving Currently taking <3 doses per day of narcotic. Ambulating with walker PT: SNF Denies fevers, chills, or wound drainage.They do not request a refill of pain medicine. Lora is currently residing at [place], and is preparing to be discharged home next week. He is doing extremely well, with minimal pain. He did develop a foot drop in the immediate postoperative period, but that appears to be resolving. He is maintained on oral amoxicillin, and is scheduled to follow-up with Dr. Peng next week. He is requesting a game ready type cold compression machine, as it works better for him than the ice packs. LION DAVIS MD [address] [place], [address], [facility] 07/23/2021 12:39:21 01/16/2022 text/html ROS as noted in the HPI 2Robert is 2.5 years S/P L TKA replant 08/17/2019. He returns to follow up due to increased sharp pain medial pain averaging 9/10. He doesn't recall any incident that would cause increased pain. He is not taking tylenol or medications for pain. Patient reports that this pain only happened during the 1 incident and has no longer hurts since. He reports no swelling, fever, chills. He does continue to have slight deficit with dorsiflexion but reports it has improved. 07-23-21:Mr. Jain returns today for routine follow-up on his left TKA replant. He is now 2 years out from surgery. Overall, he continues to do well. He has minimal pain, and no instability. He does still endorse some occasional effusions. His foot drop is relatively stable. He would estimate 50% recovery in total. He no longer uses his AFO, but also does not report any significant debility. He continues to be maintained on oral amoxicillin suppression, for life. He is tolerating that medication well. He denies fevers, chills, or wound drainage. 07-24-20: Mr. Jani returns today for routine follow-up on his left TKA replant. He is now 1 year out from surgery. Overall, he continues to do extremely well. He has minimal pain, and no instability. He is ambulating with no assistive devices. He remains on oral amoxicillin suppression. He has no recurrent signs or symptoms of PJI. His foot drop to use to improve, albeit slowly. He uses his AFO, without complaint or difficulty. He does have DJD in his right knee. We had discussed a steroid injection at today's visit, but he feels that his symptoms are not severe enough to warrant it today. 02-21-20: Mr. Jain returns today for routine follow-up on his left TKA replant. He is now approaching 6 months out from surgery. He continues to do extremely well. Some occasional effusions, and some slight medial pain, but not all debilitating. No fevers or chills. He continues on lifetime amoxicillin suppression, and is followed by Dr. Peng. He feels that his foot drop has improved slightly. He does continue to use his AFO, and has no complaints regarding it. 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 Steroid injections have been helpful in the past. He does have a history of diabetes, but is diligent about monitoring his blood sugars 3 times per day. 12-08-19: *Visit today is being conducted via telehealth using both audio and video. Patient has expressed an understanding of the telehealth process and has consented. Patient is 15 weeks s/p L TKA Replant. Pain is improving Currently taking no doses per day of narcotic. Ambulating with no assistive device PT: outpatient Denies fevers, chills, or wound drainage.They do not request a refill of pain medicine.Foot drop is improving. He continues to report some burning pain, improved with Neurontin. He is using an AFO at this point. He continues on amoxicillin, and follows with Dr. Peng regularly. 10-13-19: Patient is 8 weeks s/p L REV/ Replant TKA. Pain is improving Currently taking no doses per day of narcotic. Ambulating with cane PT: outpatient Denies fevers, chills, or wound drainage.They do request a refill of pain medicine, gabapentin.He continues on oral amoxicillin. His foot drop persists, but he does notice perhaps some slight improvement. He is reporting some burning pain in the foot, which is improved with Neurontin. 09-09-19: Patient is 3 weeks s/p L TKA Replant. Pain is improving Currently taking <3 doses per day of narcotic. Ambulating with walker PT: SNF Denies fevers, chills, or wound drainage.They do not request a refill of pain medicine. Lora is currently residing at [place], and is preparing to be discharged home next week. He is doing extremely well, with minimal pain. He did develop a foot drop in the immediate postoperative period, but that appears to be resolving. He is maintained on oral amoxicillin, and is scheduled to follow-up with Dr. Peng next week. He is requesting a game ready type cold compression machine, as it works better for him than the ice packs. ELEUTERIO YUEN PA-C [facility] [place], [address], [facility] 01/16/2022 15:50:34 01/15/2023 text/html ROS as noted in the HPI 01/15/2023MrОлег Jain returns to clinic for 3 year evaluation of L TKA replant preformed on August 17, 2019. He continues to have minor symptoms with foot drop and nerve burning tingling sensation but he is not to concerned. Minor pain to medial aspect. 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 2Robert is 2.5 years S/P L TKA replant 08/17/2019. He returns to follow up due to increased sharp pain medial pain averaging 9/10. He doesn't recall any incident that would cause increased pain. He is not taking tylenol or medications for pain. Patient reports that this pain only happened during the 1 incident and has no longer hurts since. He reports no swelling, fever, chills. He does continue to have slight deficit with dorsiflexion but reports it has improved. 07-23-21:Mr. Jain returns today for routine follow-up on his left TKA replant. He is now 2 years out from surgery. Overall, he continues to do well. He has minimal pain, and no instability. He does still endorse some occasional effusions. His foot drop is relatively stable. He would estimate 50% recovery in total. He no longer uses his AFO, but also does not report any significant debility. He continues to be maintained on oral amoxicillin suppression, for life. He is tolerating that medication well. He denies fevers, chills, or wound drainage. 07-24-20: Mr. Jain returns today for routine follow-up on his left TKA replant. He is now 1 year out from surgery. Overall, he continues to do extremely well. He has minimal pain, and no instability. He is ambulating with no assistive devices. He remains on oral amoxicillin suppression. He has no recurrent signs or symptoms of PJI. His foot drop to use to improve, albeit slowly. He uses his AFO, without complaint or difficulty. He does have DJD in his right knee. We had discussed a steroid injection at today's visit, but he feels that his symptoms are not severe enough to warrant it today. 02-21-20: Mr. Jain returns today for routine follow-up on his left TKA replant. He is now approaching 6 months out from surgery. He continues to do extremely well. Some occasional effusions, and some slight medial pain, but not all debilitating. No fevers or chills. He continues on lifetime amoxicillin suppression, and is followed by Dr. Peng. He feels that his foot drop has improved slightly. He does continue to use his AFO, and has no complaints regarding it. 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 Steroid injections have been helpful in the past. He does have a history of diabetes, but is diligent about monitoring his blood sugars 3 times per day. 12-08-19: *Visit today is being conducted via telehealth using both audio and video. Patient has expressed an understanding of the telehealth process and has consented. Patient is 15 weeks s/p L TKA Replant. Pain is improving Currently taking no doses per day of narcotic. Ambulating with no assistive device PT: outpatient Denies fevers, chills, or wound drainage.They do not request a refill of pain medicine.Foot drop is improving. He continues to report some burning pain, improved with Neurontin. He is using an AFO at this point. He continues on amoxicillin, and follows with Dr. Peng regularly. 10-13-19: Patient is 8 weeks s/p L REV/ Replant TKA. Pain is improving Currently taking no doses per day of narcotic. Ambulating with cane PT: outpatient Denies fevers, chills, or wound drainage.They do request a refill of pain medicine, gabapentin.He continues on oral amoxicillin. His foot drop persists, but he does notice perhaps some slight improvement. He is reporting some burning pain in the foot, which is improved with Neurontin. 09-09-19: Patient is 3 weeks s/p L TKA Replant. Pain is improving Currently taking <3 doses per day of narcotic. Ambulating with walker PT: SNF Denies fevers, chills, or wound drainage.They do not request a refill of pain medicine. Lora is currently residing at [facility], and is preparing to be discharged home next week. He is doing extremely well, with minimal pain. He did develop a foot drop in the immediate postoperative period, but that appears to be resolving. He is maintained on oral amoxicillin, and is scheduled to follow-up with Dr. Peng next week. He is requesting a game ready type cold compression machine, as it works better for him than the ice packs. ELEUTERIO YUEN PA-C [address] [place], [address], [facility] 01/15/2023 12:14:42
--- OUTSIDE RECORDS SUMMARY | 2025-05-17 10:08 | XMS_ITS | Encounter Summary ---
Author Organization [employer] ([place], [place], [place], [place]) Address [address] [place] [address] Care Team Providers Care Inker Machine Name Role Phone Alfrdeo Aguiar MD Primary Care Provider + [phone] Alfredo Augiar MD Primary Care Provider + [phone] Encounter Details Date Type Department Care Team (Late st Contact Info) Description 08/19/2019 Transcribed Document [facility] [place] [facility] [place] [address] ProviderEryn MD [address] [place] [address] Social History Tobacco Use Types Packs/Day Years Used Date Smoking Tobacco: Never Assessed Sex and Gender Information Value Date Recorded Sex Assigned at Not on file Legal Sex Male 5:45 PM CDT Gender Identity Not on file Sexual Orientation Not on file documented as of this encounter Miscellaneous Notes * Cerner Conversion Note - Eryn ProviderMD - 08/19/2019 2:00 AM DELIVERY DRIVER/CUSTOMER SERVICE Field Cane Scaler Helper Details Entered On: 08/19/2019 5:50 EST Performed [...] 08/19/2019 5:50 EST Electronically signed by [facility] Conversion Circus Laborer Cerner at 11/18/2022 9:14 AM CDT documented in this encounter Plan of Treatment Not on file documented as of this encounter Visit Diagnoses Not on filedocumented in this encounter Care Teams Inker Machine Relationship Specialty Start Date End Date Alfredo Aguiar MD [address] [place] [address] PCP - General Adolescent Medicine 10/16/22 10/19/22 Alfredo Aguiar MD [address] [place] [address] PCP - General Adolescent Medicine 10/20/22 documented as of this encounter
--- OUTSIDE RECORDS SUMMARY | 2025-05-17 10:08 | XMS_ITS | Encounter Summary ---
Author Organization [employer] ([place], [place], [place], [place]) Address [address] [place] [address] Care Team Providers Care Child Care Director Name Role Phone Alfredo Aguiar MD Primary Care Provider + [phone] Alfredo Aguiar MD Primary Care Provider + [phone] Encounter Details Date Type Department Care Team (Late st Contact Info) Description 05/22/2019 Transcribed Document [facility] [place] [facility] [place] [address] ProviderEryn MD [address] [place] [address] Social History Tobacco Use Types Packs/Day Years [...] filedocumented in this encounter Care Teams Child Care Director Relationship Specialty Start Date End Date Alfredo Aguiar MD [address] [place] [address] PCP - General Adolescent Medicine 10/16/22 10/19/22 Alfredo Aguiar MD [address] [place] [address] PCP - General Adolescent Medicine 10/20/22 documented as of this encounter
--- OUTSIDE RECORDS SUMMARY | 2025-05-17 10:08 | XMS_ITS | Encounter Summary ---
Author Organization [employer] ([place], [place], [place], [place]) Address [address] [place] [address] Care Team Providers Care Forging Die Finisher Name Role Phone Alfredo Aguiar MD Primary Care Provider + [phone] Alfredo Aguiar MD Primary Care Provider + [phone] Encounter Details Date Type Department Care Team (Late st Contact Info) Description 08/19/2019 Transcribed Document [place] Family [place] [facility] [place] [address] ProviderEryn MD [address] [place] [address] Social History Tobacco Use Types Packs/Day Years Used Date Smoking Tobacco: Never Assessed Sex and Gender Information Value Date Recorded Sex Assigned at Not on file Legal Sex Male 5:45 PM CDT Gender Identity Not on file Sexual Orientation Not on file documented as of this encounter Miscellaneous Notes * Cerner Conversion Note - Eryn ProviderMD - 08/19/2019 1:59 PM SUPERVISOR EDUCATION Final Discharge Planning Entered On: 08/19/2019 13:59 EST Performed On: 08/19/2019 13:59 EST by JUANY HERNANDEZ RN-Size Marker Final Discharge Planning Discharge Arrangements : Patient Post-Acute Information Patient Name: LORA JAIN JR Gender: Male : 36 Age: 78 Years [place] Referral(s): Service: Organization: Business Address: Phone Number: [facility] [address] [facility] [address] [place], [address] Patient Offered Choice/Affiliations Explained : Yes Designation of Choice Signed : Yes Important Medicare Message Reviewed With : Patient Important Medicare Message Reviewed D/T : 08/19/2019 10:00 EST Transportation Needs : JUANY Nice, RN-Size Marker - 08/19/2019 13:59 EST Electronically signed by [facility] Conversion Tongue And Groove Machine Feeder Cerner at 11/18/2022 9:41 AM CDT documented in this encounter Plan of Treatment Not on file documented as of this encounter Visit Diagnoses Not on filedocumented in this encounter Care Teams Forging Die Finisher Relationship Specialty Start Date End Date Alfredo Aguiar MD [address] [place] [address] PCP - General Adolescent Medicine 10/16/22 10/19/22 Alfredo Aguiar MD [address] [place] [address] PCP - General Adolescent Medicine 10/20/22 documented as of this encounter
--- OUTSIDE RECORDS SUMMARY | 2025-05-17 10:08 | XMS_ITS | Encounter Summary ---
Author Organization [employer] ([place], [place], [place], [place]) Address [address] [place] [address] Care Team Providers Care Home Health Care Provider Name Role Phone Alfredo Aguiar MD Primary Care Provider + [phone] Alfredo Aguiar MD Primary Care Provider + [phone] Encounter Details Date Type Department Care Team (Late st Contact Info) Description 05/22/2019 Transcribed Document [facility] Family Medicine [facility] [place] [address] ProviderEryn MD [address] [place] [address] Social History Tobacco Use Types Packs/Day Years [...] PRIYANKA MADIE NAVA - 05/23/2019 13:16 EDT Longterm Goals, OT Dressing, Lower Body LTG Grid [...] Client was supine in bed. Used leg licensed professional counselor. MIN A to EOB. Client stood with [...] 05/23/2019 13:16 EDT Electronically signed by [facility] Conversion Radio Station Engineer Cerner at 11/18/2022 9:18 AM CDT documented in this encounter Plan of Treatment Not on file documented as of this encounter Visit Diagnoses Not on filedocumented in this encounter Care Teams Home Health Care Provider Relationship Specialty Start Date End Date Alfredo Aguiar MD [address] [place] [address] PCP - General Adolescent Medicine 10/16/22 10/19/22 Alfredo Aguiar MD [address] [place] [address] PCP - General Adolescent Medicine 10/20/22 documented as of this encounter
--- OUTSIDE RECORDS SUMMARY | 2025-05-17 10:08 | XMS_ITS | Encounter Summary ---
Author Organization [employer] ([place], [place], [place], [place]) Address [address] [place] [address] Care Team Providers Care Medicaid Plan Compliance Director Name Role Phone Alfredo Aguiar MD Primary Care Provider + [phone] Alfredo Aguiar MD Primary Care Provider + [phone] Encounter Details Date Type Department Care Team (Late st Contact Info) Description 08/19/2019 Transcribed Document [facility] Family Medicine [facility] [place] [address] ProviderEryn MD [address] [place] [address] Social History Tobacco Use Types Packs/Day Years Used Date Smoking Tobacco: Never Assessed Sex and Gender Information Value Date Recorded Sex Assigned at Not on file Legal Sex Male 5:45 PM CDT Gender Identity Not on file Sexual Orientation Not on file documented as of this encounter Miscellaneous Notes * Cerner Conversion Note - Eryn ProviderMD - 08/19/2019 1:57 PM ROBOTICS MECHANIC On Going Discharge Planning Entered On: 08/19/2019 13:59 EST Performed On: 08/19/2019 13:57 EST by JUANY HERNANDEZ RN-Head Paper TesterReceiving Room Clerk Progress Note Discharge Arrangements : Patient Post-Acute Information Patient Name: LORA JAIN JR Gender: Male : [birth year] Age: 78 Years [place] Referral(s): Service: Organization: Business Address: Phone Number: [facility] [address] [facility] [address] [place], [address] Discharge Options Discussed with Patient : Home Health, Short term rehabilitation Barriers to Discharge Identified : 3 Day Qualifying Stay for SNF Barriers to Discharge Unresolved : 3 Day Qualifying Stay for SNF Designation of Choice Signed : Yes Patient Offered Choice/Affiliations Explained : Yes List/Info Provided Pt/Fam/Support Person : Home health, retirement facilities Were Referrals Sent to Post Acute Providers : Yes Is the Patient Meeting Medical Necessity : Yes JUANY HERNANDEZ, RN-Head Paper Tester - 08/19/2019 13:57 EST Narrative Progress Note Narrative Progress Note : Hemovac dc'd today with WOCN at bedside to ensure wound vac not disrupted. Pt will dc to [facility] tomorrow 08/20 via daughter. No other CM needs identified. JUANY HERNANDEZ RN-Head Paper Tester - 08/19/2019 13:57 EST documented in this encounter Plan of Treatment Not on file documented as of this encounter Visit Diagnoses Not on filedocumented in this encounter Care Teams Medicaid Plan Compliance Director Relationship Specialty Start Date End Date Alfredo Aguiar MD [address] [place] [address] PCP - General Adolescent Medicine 10/16/22 10/19/22 Alfredo Aguiar MD [address] [place] [address] PCP - General Adolescent Medicine 10/20/22 documented as of this encounter
--- OUTSIDE RECORDS SUMMARY | 2025-05-17 10:08 | XMS_ITS | Encounter Summary ---
Author Organization [employer] ([place], [place], [place], [place]) Address [address] [facility] [place] [address] Care Team Providers Care Machine Finisher Name Role Phone Alfredo Aguiar MD Primary Care Provider + [phone] Alfredo Aguiar MD Primary Care Provider + [phone] Encounter Details Date Type Department Care Team (Late st Contact Info) Description 08/19/2019 Transcribed Document [facility] [address] [place] [address] Massimo Butterfield MD [address] [place] [address] Social History Tobacco Use Types Packs/Day [...] therapy. He has a bed available at [facility] in [place] and will discharge tomorrow for rehab. No cough, dyspnea, fever/chills, n/v or dysuria. Bowels have not yet moved but patient is passing gas and tolerating a PO diet. Daughter request probiotic while patient remains on antibiotics. HPI: Patient is an 78 yo male admitted to [facility] per Dr. 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
--- OUTSIDE RECORDS SUMMARY | 2025-05-17 10:08 | XMS_ITS | Encounter Summary ---
Author Organization [employer] ([place], [place], [place], [place]) Address [address] [place] [address] Care Team Providers Care Employment Clerk Name Role Phone Alfredo Aguiar MD Primary Care Provider + [phone] Alfredo Aguiar MD Primary Care Provider + [phone] Encounter Details Date Type Department Care Team (Late st Contact Info) Description 05/22/2019 Transcribed Document [facility] [place] [facility] [place] [address] ProviderEryn MD [address] [place] [address] Social History Tobacco Use Types Packs/Day Years [...] pending. Rad: Radiology Results (Last 48 hours) [id number] -- 05/20/2019 06:54 CR Knee 1 or [...] Dr. Wendie Peng. Electronically signed by [facility] Conversion Mica Paster Cerner at 11/18/2022 9:36 AM CDT documented in this encounter Plan of Treatment Not on file documented as of this encounter Visit Diagnoses Not on filedocumented in this encounter Care Teams Employment Clerk Relationship Specialty Start Date End Date Alfredo Aguiar MD [address] [place] [address] PCP - General Adolescent Medicine 10/16/22 10/19/22 Alfredo Aguiar MD [address] [place] [address] PCP - General Adolescent Medicine 10/20/22 documented as of this encounter
--- OUTSIDE RECORDS SUMMARY | 2025-05-17 10:08 | XMS_ITS | Encounter Summary ---
Author Organization [employer] ([place], [place], [place], [place]) Address [address] [place] [address] Care Team Providers Care High School Science Teacher Name Role Phone Alfredo Aguiar MD Primary Care Provider + [phone] Alfredo Aguiar MD Primary Care Provider + [phone] Encounter Details Date Type Department Care Team (Late st Contact Info) Description 05/22/2019 Transcribed Document [facility] [place] Medicine [address] [place] [address] ProviderEryn MD [address] [place] [address] Social History Tobacco Use Types Packs/Day Years [...] on filedocumented in this encounter Care Teams High School Science Teacher Relationship Specialty Start Date End Date Alfredo Aguiar MD [address] [place] [address] PCP - General Adolescent Medicine 10/16/22 10/19/22 Alfredo Aguiar MD [address] [place] [address] PCP - General Adolescent Medicine 10/20/22 documented as of this encounter
--- OUTSIDE RECORDS SUMMARY | 2025-05-17 10:08 | XMS_ITS | Encounter Summary ---
Author Organization [employer] ([place], [place], [place], [place]) Address [address] [facility] [place] [address] Care Team Providers Care [place] Boatman Name Role Phone Alfredo Aguiar MD Primary Care Provider + [phone] Alfredo Aguiar MD Primary Care Provider + [phone] Encounter Details Date Type Department Care Team (Late st Contact Info) Description 05/22/2019 Transcribed Document [facility] [address] [place] [address] Lion Allison MD [address] [place] [address] Social History Tobacco Use Types Packs/Day Years [...] Associated Diagnoses: None Author: LION ALLISON MD-ORT [facility] Ortho Progress Note SUBJECTIVE No events overnight. [...] on filedocumented in this encounter Care Teams [place] Boatman Relationship Specialty Start Date End Date Alfredo Aguiar MD [address] [place] [address] PCP - General Adolescent Medicine 10/16/22 10/19/22 Alfredo Aguiar MD [address] [place] [address] PCP - General Adolescent Medicine 10/20/22 documented as of this encounter
--- OUTSIDE RECORDS SUMMARY | 2025-05-17 10:08 | XMS_ITS | Encounter Summary ---
Author Organization [facility] Address [address] [place] [address] Care Team Providers Care Critical Care Clinical Nurse Specialist Name Role Phone Alfredo Aguiar MD Primary Care Provider [phone] Reason for Visit * Reason Comments Med Refill Encounter Details Date Type Department Care Team (Late st Contact Info) Description 10/07/2023 Refill [facility] [address] [place] [address] Lizzie Farmer, FLOOR REPRESENTATIVE [address] [facility] [address] [place] [address] Vitamin D deficiency Social History [...] Office Visit [facility] [address] [place] [address] Neena Fields, FLOOR REPRESENTATIVE [address] [facility] [address] [place] [address] documented as of this encounter Visit Diagnoses Diagnosis Vitamin D deficiency documented in this encounter Additional Health Concerns Assessment Noted Time A fall risk assessment has been complete d for the patient 2023 10:33 AM EST A Body Mass Index follow-up plan has been documented for the patient 2023 12:25 PM EST documented as of this encounter Care Teams Critical Care Clinical Nurse Specialist Relationship Specialty Start Date End Date Alfredo Aguiar MD [address] [place] [address] PCP - General 12/14/20 documented as of this encounter
--- OUTSIDE RECORDS SUMMARY | 2025-05-17 10:08 | XMS_ITS | Encounter Summary ---
Author Organization [employer] ([place], [place], [place], [place]) Address [address] [place] [address] Care Team Providers Care Tool Dresser Name Role Phone Alfredo Aguiar MD Primary Care Provider + [phone] Alfredo Aguiar MD Primary Care Provider + [phone] Encounter Details Date Type Department Care Team (Late st Contact Info) Description 05/22/2019 Transcribed Document [facility] [place] [address] [place] [address] ProviderEryn MD [address] [place] [address] Social History Tobacco Use Types Packs/Day Years [...] filedocumented in this encounter Care Teams Tool Dresser Relationship Specialty Start Date End Date Alfredo Aguiar MD [address] [place] [address] PCP - General Adolescent Medicine 10/16/22 10/19/22 Alfredo Aguiar MD [address] [place] [address] PCP - General Adolescent Medicine 10/20/22 documented as of this encounter
--- OUTSIDE RECORDS SUMMARY | 2025-05-17 10:08 | XMS_ITS | Encounter Summary ---
Author Organization [employer] ([place], [place], [place], [place]) Address [address] [place] [address] Care Team Providers Care Plate Colorer Name Role Phone Alfredo Aguiar MD Primary Care Provider + [phone] Alfredo Aguiar MD Primary Care Provider + [phone] Encounter Details Date Type Department Care Team (Late st Contact Info) Description 05/22/2019 Transcribed Document [facility] [place] [facility] [place] [address] ProviderEryn MD [address] [place] [address] Social History Tobacco Use Types Packs/Day Years Used Date Smoking Tobacco: Never Assessed Sex and Gender Information Value Date Recorded Sex Assigned at Not on file Legal Sex Male 5:45 PM CDT Gender Identity Not on file Sexual Orientation Not on file documented as of this encounter Miscellaneous Notes * Cerner Conversion Note - Eryn ProviderMD - 05/22/2019 2:00 AM CDT Excellence Manager Details Entered On: 05/22/2019 4:49 EDT Performed [...] on filedocumented in this encounter Care Teams Plate Colorer Relationship Specialty Start Date End Date Alfredo Aguiar MD [address] [place] [address] PCP - General Adolescent Medicine 10/16/22 10/19/22 Alfredo Aguiar MD [address] [place] [address] PCP - General Adolescent Medicine 10/20/22 documented as of this encounter
--- OUTSIDE RECORDS SUMMARY | 2025-05-17 10:08 | XMS_ITS | Encounter Summary ---
Author Organization [employer] ([place], [place], [place], [place]) Address [address] [place] [address] Care Team Providers Care Fixture Relamper Name Role Phone Alfredo Aguiar MD Primary Care Provider + [phone] Alfredo Aguiar MD Primary Care Provider [phone] Encounter Details Date Type Department Care Team (Late st Contact Info) Description 08/19/2019 Transcribed Document [facility] [place] [facility] [place] [address] ProviderEryn MD [address] [place] [address] Social History Tobacco Use Types Packs/Day Years Used Date Smoking Tobacco: Never Assessed Sex and Gender Information Value Date Recorded Sex Assigned at Not on file Legal Sex Male 5:45 PM CDT Gender Identity Not on file Sexual Orientation Not on file documented as of this encounter Miscellaneous Notes * Nicolas Conversion Note - Eryn ProviderMD - 08/19/2019 5:00 AM CONVERTER SKIMMER Chart Check - Review Order Profile Entered [...] on filedocumented in this encounter Care Teams Fixture Relamper Relationship Specialty Start Date End Date Alfredo Aguiar MD [address] [place] [address] PCP - General Adolescent Medicine 10/16/22 10/19/22 Alfredo Aguiar MD [address] [place] [address] PCP - General Adolescent Medicine 10/20/22 documented as of this encounter
--- OUTSIDE RECORDS SUMMARY | 2025-05-17 10:08 | XMS_ITS | Encounter Summary ---
Author Organization [employer] ([place], [place], [place], [place]) Address [address] [place] [address] Care Team Providers Care Test Engine Evaluator Name Role Phone Alfredo Aguiar MD Primary Care Provider + [phone] Alfredo Aguiar MD Primary Care Provider + [phone] Encounter Details Date Type Department Care Team (Late st Contact Info) Description 08/19/2019 Transcribed Document [facility] [place] [address] ProviderEryn MD [address] [place] [address] Social History Tobacco Use Types Packs/Day Years Used Date Smoking Tobacco: Never Assessed Sex and Gender Information Value Date Recorded Sex Assigned at Not on file Legal Sex Male 5:45 PM CDT Gender Identity Not on file Sexual Orientation Not on file documented as of this encounter Miscellaneous Notes * Cerner Conversion Note - Eryn Arcos MD - 08/19/2019 7:35 AM INSPECTOR RECEIVING Patient: LORA JAIN JR Age: 78 Years Sex: Male : 1940 Assessment/Plan Continue PT. Discontinue Hemovac drain and reinforce incisional VAC. Weightbearing as tolerated but minimize ambulation. Okay to do range of motion. Elevate foot above knee in the above heart to the extent possible. Monitor tibialis anterior function throughout the day. Plan to discharge [facility] tomorrow if stable VTE Prophylaxis - [...] # 0.33 x10(3)/uL (Low) 08/19/2019 03:35 EST Lewis % 11.9 % (High) 08/19/2019 03:35 EST Lewis # 0.94 K/uL 08/19/2019 03:35 EST Eos % 2.5 % 08/19/2019 03:35 EST Eos # 0.20 x10(3)/uL 08/19/2019 03:35 EST Baso % 0.4 % 08/19/2019 03:35 EST Baso # 0.03 x10(3)/uL 08/19/2019 03:35 EST Slide Review No 08/19/2019 03:35 EST IG# 0.05 x10(3)/uL 08/19/2019 03:35 EST IG% 0.60 % 08/19/2019 03:35 EST Electronically signed by [facility], [facility] Conversion Electrologist Cerner at 11/18/2022 9:20 AM CDT documented in this encounter Plan of Treatment Not on file documented as of this encounter Visit Diagnoses Not on filedocumented in this encounter Care Teams Test Engine Evaluator Relationship Specialty Start Date End Date Alfredo Aguiar MD [address] [place] [address] PCP - General Adolescent Medicine 10/16/22 10/19/22 Alfredo Aguiar MD [address] [place] [address] PCP - General Adolescent Medicine 10/20/22 documented as of this encounter
--- OUTSIDE RECORDS SUMMARY | 2025-05-17 10:08 | XMS_ITS | Encounter Summary ---
Author Organization [employer] ([place], [place], [place], [place]) Address [address] [place] [address] Care Team Providers Care Lithographic Retoucher Apprentice Name Role Phone Alfredo Aguiar MD Primary Care Provider + [phone] Alfredo Aguiar MD Primary Care Provider + [phone] Encounter Details Date Type Department Care Team (Late st Contact Info) Description 08/19/2019 Transcribed Document [facility] [place] Family Medicine [facility] [place] [address] ProviderEryn MD [address] [place] [address] Social History Tobacco Use Types Packs/Day Years Used Date Smoking Tobacco: Never Assessed Sex and Gender Information Value Date Recorded Sex Assigned at Not on file Legal Sex Male 5:45 PM CDT Gender Identity Not on file Sexual Orientation Not on file documented as of this encounter Miscellaneous Notes * Cerner Conversion Note - Eryn ProviderMD - 08/19/2019 1:40 PM SURGICAL ASSIST Treatment Intervention, PT Entered On: 08/19/2019 13:47 [...] : 08/17/2019 07:12 Assisted by, PT : audio/video technician/aide Personal Devices : Personal Devices No Devices Recorded Assistive Devices : Assistive Devices No Devices Recorded Precautions in Place : Fall prevention measures SHARON WALTON [facility] 08/19/2019 13:40 EST General Status Patient Received Status : Supine in bed Treatment Start Time : 08/19/2019 13:07 EST Patient Left Status : Supine in bed, All needs met and within reach RN/PCT Informed Comment : ELICEO Anthony ok'd to treat. Treatment End Time : 08/19/2019 13:19 EST Treatment Time : 12 Minute(s) SHARON WALTON [facility] 08/19/2019 13:40 EST Functional Mobility Mobility Grid Supine to Sit : Supervision/set-up (Comment: using leg shipping and receiving operator [SHARON WALTON [facility] 08/19/2019 13:40 EST] ) Sit to Stand : Rehab Minimal assistance (Comment: x2 [SHARON WALTON [facility] 08/19/2019 13:40 EST] ) Stand to Sit : Rehab Minimal assistance (Comment: x2 [SHARON WALTON PTA 08/19/2019 13:40 EST] ) Sit to Supine : Supervision/set-up SHARON WALTON [facility] 08/19/2019 13:40 EST Bed Comment : patient [...] Orientation : Oriented x 4 ANTON SHARON LUMBER TRIPPER - 08/19/2019 13:40 EST Edu Topics Physical Therapy Education Grid Gait Training : Returns demonstration, Needs further teaching Role of Physical Therapy : Returns demonstration Transfer Training : Returns demonstration, Needs further teaching SHARON WALTON [facility] - 08/19/2019 13:40 EST Indication Assesessment, PT Physical Therapy Indicated : Yes SHARON WALTON PTA - 08/19/2019 13:40 EST Plan of Care, PT PT Tx Plan/Goals Established w Patient : Yes SHARON WALTON LUMBER TRIPPER - 08/19/2019 13:40 EST Trainman Goals Mobility/Bed Mobility LTG PT Grid Goal [...] Goal Status : Progressing, continue SHARON WALTON [facility] - 08/19/2019 13:40 EST Treatment Note Subjective Comment : Patient agrees to treat Additional Objective Information : AAROM left knee was 0 to 78 Assessment : Patient would benefit from rehab placement to improve LLE strength and progress therapy as tolerated Plan for Treatment : Continue per POC. SHARON WALTON LUMBER TRIPPER - 08/19/2019 13:40 EST Pain Assessment Pain Comment : patient states his knee is a little sore SHARON WALTON PTA - 08/19/2019 13:40 EST Image 1 - Images currently included in the form version of this document have not been included in the text rendition version of the form. Anticipated Discharge Needs, OT/PT Anticipated Discharge to : Unit, rehabilitation STEFAN WALTONN, LUMBER TRIPPER - 08/19/2019 13:40 EST [place] PT Charges LUMBER TRIPPER PT Therap. Exercise 15 min-LUMBER TRIPPER : 1 SHARON WALTON, LUMBER TRIPPER - 08/19/2019 13:40 EST Electronically signed by [facility], [facility] Conversion Fire Control Officer Cerner at 11/18/2022 9:41 AM CDT documented in this encounter Plan of Treatment Not on file documented as of this encounter Visit Diagnoses Not on filedocumented in this encounter Care Teams Lithographic Retoucher Apprentice Relationship Specialty Start Date End Date Alfredo Aguiar MD [address] [place] [address] PCP - General Adolescent Medicine 10/16/22 10/19/22 Alfredo Aguiar MD [address] [place] [address] PCP - General Adolescent Medicine 10/20/22 documented as of this encounter
--- OUTSIDE RECORDS SUMMARY | 2025-05-17 10:08 | XMS_ITS | Encounter Summary ---
Author Organization [employer] ([place], [place], [place], [place]) Address [address] [place] [address] Care Team Providers Care Staking Press Operator Name Role Phone Alfredo Aguiar MD Primary Care Provider + [phone] Alfredo Aguiar MD Primary Care Provider + [phone] Encounter Details Date Type Department Care Team (Late st Contact Info) Description 05/22/2019 Transcribed Document [facility] [place] Family Medicine [facility] [place] [address] ProviderEryn MD [address] [place] [address] Social History Tobacco Use Types Packs/Day Years [...] Oral, Daily cefTRIAXone 2 Gram, IV Piggyback, [id number] docusate sodium 100 mg cap 100 mg [...] % LOW Lymph # 0.26 x10(3)/uL LOW [place] % 6.2 % [place] # 0.72 K/uL Eos % 0.2 % [...] % LOW Lymph # 0.36 x10(3)/uL LOW [place] % 8.3 % [place] # 0.79 K/uL Eos % 0.0 % [...] on filedocumented in this encounter Care Teams Staking Press Operator Relationship Specialty Start Date End Date Alfredo Aguiar MD [address] [place] [address] PCP - General Adolescent Medicine 10/16/22 10/19/22 Alfredo Aguiar MD [address] [place] [address] PCP - General Adolescent Medicine 10/20/22 documented as of this encounter
--- OUTSIDE RECORDS SUMMARY | 2025-05-17 10:08 | XMS_ITS | Encounter Summary ---
Author Organization [employer] ([place], [place], [place], [place]) Address [address] [place] [address] Care Team Providers Care Manager Of Organizational Development Name Role Phone Alfredo Aguiar MD Primary Care Provider + [phone] Alfredo Aguiar MD Primary Care Provider + [phone] Encounter Details Date Type Department Care Team (Late st Contact Info) Description 05/22/2019 Transcribed Document [facility] [place] Family Medicine [facility] [place] [address] ProviderEryn MD [address] [place] [address] Social History Tobacco Use Types Packs/Day Years [...] 05/22/2019 16:21 EDT Electronically signed by [facility] Conversion Siderographist Cerner at 11/18/2022 9:29 AM CDT documented in this encounter Plan of Treatment Not on file documented as of this encounter Visit Diagnoses Not on filedocumented in this encounter Care Teams Manager Of Organizational Development Relationship Specialty Start Date End Date Alfredo Aguiar MD [address] [place] [address] PCP - General Adolescent Medicine 10/16/22 10/19/22 Alfredo Aguiar MD [address] [place] [address] PCP - General Adolescent Medicine 10/20/22 documented as of this encounter
--- OUTSIDE RECORDS SUMMARY | 2025-05-17 10:08 | XMS_ITS | Encounter Summary ---
Author Organization [employer] ([place], [place], [place], [place]) Address [address] [place] [address] Care Team Providers Care Construction Equipment Technician Name Role Phone Alfredo Aguiar MD Primary Care Provider + [phone] Alfredo Aguiar MD Primary Care Provider + [phone] Encounter Details Date Type Department Care Team (Late st Contact Info) Description 08/19/2019 Transcribed Document [facility] [place] Family [place] [facility] [address] ProviderEryn MD [address] [place] [address] Social History Tobacco Use Types Packs/Day Years Used Date Smoking Tobacco: Never Assessed Sex and Gender Information Value Date Recorded Sex Assigned at Not on file Legal Sex Male 5:45 PM CDT Gender Identity Not on file Sexual Orientation Not on file documented as of this encounter Miscellaneous Notes * Cerner Conversion Note - Eryn ProviderMD - 08/19/2019 12:00 PM BILLIARD TABLE ASSEMBLER Pain Assessment Entered On: 08/19/2019 19:59 EST [...] form. Electronically signed by Radha Paris Conversion Vice President Network Development Cerner at 11/18/2022 9:25 AM CDT documented in this encounter Plan of Treatment Not on file documented as of this encounter Visit Diagnoses Not on filedocumented in this encounter Care Teams Construction Equipment Technician Relationship Specialty Start Date End Date Alfredo Aguiar MD [address] [place] [address] PCP - General Adolescent Medicine 10/16/22 10/19/22 Alfredo Aguiar MD [address] [place] [address] PCP - General Adolescent Medicine 10/20/22 documented as of this encounter
--- OUTSIDE RECORDS SUMMARY | 2025-05-17 10:08 | XMS_ITS | Encounter Summary ---
Author Organization [employer] ([place], [place], [place], [place]) Address [address] [place] [address] Care Team Providers Care Health Record Technician Name Role Phone Alfredo Aguiar MD Primary Care Provider + [phone] Alfredo Aguiar MD Primary Care Provider + [phone] Encounter Details Date Type Department Care Team (Late st Contact Info) Description 05/22/2019 Transcribed Document [facility] [place] [address] ProviderEryn MD [address] [place] [address] Social History Tobacco Use Types Packs/Day Years [...] 05/22/2019 4:48 EDT Electronically signed by [facility] Conversion Human Resources Temp Cerner at 11/18/2022 9:38 AM CDT documented in this encounter Plan of Treatment Not on file documented as of this encounter Visit Diagnoses Not on filedocumented in this encounter Care Teams Health Record Technician Relationship Specialty Start Date End Date Alfredo Aguiar MD [address] [place] [address] PCP - General Adolescent Medicine 10/16/22 10/19/22 Alfredo Aguiar MD [address] [place] [address] PCP - General Adolescent Medicine 10/20/22 documented as of this encounter
--- OUTSIDE RECORDS SUMMARY | 2025-05-17 10:08 | XMS_ITS | Encounter Summary ---
Author Organization [employer] ([place], [place], [place], [place]) Address [address] [place] [address] Care Team Providers Care Aerial Erector Name Role Phone Alfredo Aguiar MD Primary Care Provider + [phone] Alfredo Aguiar MD Primary Care Provider + [phone] Encounter Details Date Type Department Care Team (Late st Contact Info) Description 08/19/2019 Transcribed Document [facility] [place] [facility] [address] ProviderEryn MD [address] [place] [address] Social History Tobacco Use Types Packs/Day Years Used Date Smoking Tobacco: Never Assessed Sex and Gender Information Value Date Recorded Sex Assigned at Not on file Legal Sex Male 5:45 PM CDT Gender Identity Not on file Sexual Orientation Not on file documented as of this encounter Miscellaneous Notes * Cerner Conversion Note - Eryn Arcos MD - 08/19/2019 10:30 AM CUB REPORTER WOCN Inpatient Documentation Entered On: 08/19/2019 11:51 [...] 08/19/2019 11:48 EST Electronically signed by [facility] Conversion Quality Compliance Consultant Cerner at 11/18/2022 9:34 AM CDT documented in this encounter Plan of Treatment Not on file documented as of this encounter Visit Diagnoses Not on filedocumented in this encounter Care Teams Aerial Erector Relationship Specialty Start Date End Date Alfredo Aguiar MD [address] [place] [address] PCP - General Adolescent Medicine 10/16/22 10/19/22 Alfredo Aguiar MD [address] [place] [address] PCP - General Adolescent Medicine 10/20/22 documented as of this encounter
--- OUTSIDE RECORDS SUMMARY | 2025-05-17 10:09 | XMS_ITS | Encounter Summary ---
Author Organization [employer] ([place], [place], [place], [place]) Address [address] [place] [address] Care Team Providers Care Bed Laster Name Role Phone Alfredo Aguiar MD Primary Care Provider + [phone] Alfredo Aguiar MD Primary Care Provider + [phone] Encounter Details Date Type Department Care Team (Late st Contact Info) Description 05/22/2019 Transcribed Document [facility] [place] [facility] [place] [address] ProviderEryn MD [address] [place] [address] Social History Tobacco Use Types Packs/Day Years [...] on filedocumented in this encounter Care Teams Bed Laster Relationship Specialty Start Date End Date Alfredo Aguiar MD [address] [place] [address] PCP - General Adolescent Medicine 10/16/22 10/19/22 Alfredo Aguiar MD [address] [place] [address] PCP - General Adolescent Medicine 10/20/22 documented as of this encounter
--- OUTSIDE RECORDS SUMMARY | 2025-05-17 10:09 | XMS_ITS | Encounter Summary ---
Author Organization [employer] ([place], [place], [place], [place]) Address [address] [place] [address] Care Team Providers Care Refrigerator Cabinetmaker Name Role Phone Alfredo Aguiar MD Primary Care Provider + [phone] Alfredo Aguiar MD Primary Care Provider + [phone] Encounter Details Date Type Department Care Team (Late st Contact Info) Description 08/19/2019 Transcribed Document [facility] [place] [facility] [place] [address] ProviderEryn MD [address] [place] [address] Social History Tobacco Use Types Packs/Day Years Used Date Smoking Tobacco: Never Assessed Sex and Gender Information Value Date Recorded Sex Assigned at Not on file Legal Sex Male 5:45 PM CDT Gender Identity Not on file Sexual Orientation Not on file documented as of this encounter Miscellaneous Notes * Cerner Conversion Note - Eryn ProviderMD - 08/19/2019 6:00 PM ALTERNATIVE EDUCATION TEACHER Pain Assessment Entered On: 08/19/2019 19:59 EST [...] on filedocumented in this encounter Care Teams Refrigerator Cabinetmaker Relationship Specialty Start Date End Date Alfredo Aguiar MD [address] [place] [address] PCP - General Adolescent Medicine 10/16/22 10/19/22 Alfredo Aguiar MD [address] [place] [address] PCP - General Adolescent Medicine 10/20/22 documented as of this encounter
== END 2025-05-17 23:59 | disposition home or self-care (01) ==
LOC: RAD 09:57
PROVIDERS: PCP Internal Medicine Adolescent Medicine; Visit Provider Urology
DX: C61 Malignant neoplasm of prostate (principal); N50.3 Cyst of epididymis; N18.9 Chronic kidney disease, unspecified; N45.1 Epididymitis; R93.89 Abnormal findings on diagnostic imaging of other specified body structures
CPT/HCPCS: 76870

== ENCOUNTER 2025-06-13 09:36 | Day surgery (SDC) | payer MEDICARE, OTHER, SELFPAY ==
[2025-06-13 09:38] VITALS: BMI 33.6
[2025-06-13 09:44] VITALS: BP 143/80; PULSE 66; RESP 18; TEMP 36.9; O2SAT 96
[2025-06-13 09:52] VITALS: PULSE 65
[2025-06-13 10:30] VITALS: BP 129/76; PULSE 62; RESP 18; O2SAT 94
[2025-06-13 10:35] VITALS: BP 138/64; PULSE 65; RESP 18; TEMP 37; O2SAT 97
[2025-06-13] MEDS: LIDOCAINE 2% W/EPI 1:100,000 20ML VIAL 20 ML SUBCUT (10:43)
[2025-06-13 10:55] VITALS: O2SAT 100
--- NOTE | 2025-06-13 15:23 | EXP.LOOP ---
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 After informed consent obtained, lidocaine was used to anesthetize the area over the loop recorder and a surgical scalpel was used to incise down to the loop recorder.? Using forceps the loop recorder was removed without complications.? The incision was closed with surgical adhesive and covered with Steri-Strips and a pressure dressing.? Patient tolerated procedure without complications.? Impression:: Successful removal of implantable loop recorder Serial Number:: n/a Plan:: Routine postop care recommended.
== END 2025-06-13 10:59 | disposition home or self-care (01) ==
LOC: CATHLAB 09:37
PROVIDERS: PCP Internal Medicine Adolescent Medicine; Visit Provider Internal Medicine
DX: Z45.09 Encounter for adjustment and management of other cardiac device (principal); I25.118 Atherosclerotic heart disease of native coronary artery with other forms of angina pectoris; E11.9 Type 2 diabetes mellitus without complications; I10 Essential (primary) hypertension; E78.2 Mixed hyperlipidemia; K21.9 Gastro-esophageal reflux disease without esophagitis; Z86.73 Personal history of transient ischemic attack (TIA), and cerebral infarction without residual deficits; Z79.02 Long term (current) use of antithrombotics/antiplatelets; Z79.84 Long term (current) use of oral hypoglycemic drugs; Z79.4 Long term (current) use of insulin; Z79.51 Long term (current) use of inhaled steroids; Z79.899 Other long term (current) drug therapy
CPT/HCPCS: 33286; J2004